=== PATIENT | female | born 1955 | race Caucasian/White ===

== ENCOUNTER 2017-05-13 14:21 | Emergency (ER) | payer MEDICARE, MEDICAID ==
--- NOTE | 2017-05-13 14:41 | ER Document Report ---
ED General - General Chief Complaint: Altered Mental Status Stated Complaint: ALTERED MENTAL STATUS, DIZZY Time Seen by Provider: 05/13/17 14:39 Mode of Arrival: Ambulatory Information source: Patient, Relative TRAVEL OUTSIDE OF THE [place] IN LAST 30 DAYS: No - HPI Onset: Yesterday Onset/Duration: Gradual Quality of pain: No pain Associated symptoms: Other - DIPLOPIA, MUSCLE SPASMS, NONSENSICAL TALK. Exacerbated by: Denies Relieved by: Denies Similar symptoms previously: Yes - WITH LOW MAGNESIUM Recently seen / treated by doctor: Yes - LAST WK, TAKING AMOX./CLAV. FOR BRONCHITIS - Related Data Allergies/Adverse Reactions: zolpidem [From Ambien] Adverse Reaction (Verified 04/07/16 17:08) Past Medical History - General Information source: Patient, Relative - Social History Smoking Status: Former Smoker Cigarette use (# per day): No Chew tobacco use (# tins/day): No Smoking Education Provided: No Frequency of alcohol use: None Drug Abuse: None Lives with: Family Family History: Reviewed & Not Pertinent Patient has suicidal ideation: No Patient has homicidal ideation: No - Past Medical History Cardiac Medical History: Reports: Hx Congestive Heart Failure, Hx Coronary Artery Disease, Hx Heart Attack, Hx Hypertension Pulmonary Medical History: Reports: Hx COPD, Hx Pneumonia, Hx Intubation, Hx Respiratory Failure Denies: Hx Tuberculosis EENT Medical History: Reports: None Neurological Medical History: Denies: Hx Seizures Endocrine Medical History: Reports: Hx Diabetes Mellitus Type 2, Hx Hypothyroidism Renal/ Medical History: Reports: None Malignancy Medical History: Reports: None GI Medical History: Reports: None Musculoskeltal Medical History: Reports Hx Fibromyalgia Psychiatric Medical History: Reports: Hx Bipolar Disorder, Hx Depression Past Surgical History: Reports: Hx Appendectomy, Hx Cardiac Catheterization, Hx Cardiac Surgery, Hx Section. Denies: Hx Pacemaker - Immunizations Hx Diphtheria, Pertussis, Tetanus Vaccination: Yes Hx Pneumococcal Vaccination: 04/16/09 Review of Systems - Review of Systems Constitutional: See HPI EENT: See HPI, Double vision Cardiovascular: No symptoms reported Respiratory: See HPI, Cough, Sputum Gastrointestinal: No symptoms reported Genitourinary: No symptoms reported Female Genitourinary: Post menopausal Musculoskeletal: No symptoms reported Skin: No symptoms reported Neurological/Psychological: No symptoms reported Physical Exam - Vital signs Vitals: Pulse Ox 91 L 05/13/17 14:30 Interpretation: Normal - General General appearance: Appears well, Alert In distress: None - HEENT Head: Normocephalic Eyes: Normal Conjunctiva: Normal Extraocular movements intact: Yes - CONJUGATE GAZE ON EXAM Pupils: PERRL Ears: Normal Nasal: Normal Mouth/Lips: Normal Mucous membranes: Normal Pharynx: Normal Neck: Normal - Respiratory Respiratory status: No respiratory distress Breath sounds: Normal. No: Rales, Rhonchi, Wheezing - Cardiovascular Rhythm: Regular Heart sounds: Normal auscultation Murmur: No - Abdominal Inspection: Normal Bowel sounds: Normal - Back Back: Normal - Extremities General upper extremity: Normal inspection General lower extremity: Normal inspection - Neurological Neuro grossly intact: Yes Cognition: Normal Orientation: AAOx4 [place] Coma Scale Eye Opening: Spontaneous [place] Coma Scale Verbal: Oriented [place] Coma Scale Motor: Obeys Commands [place] Coma Scale Total: 15 Speech: Normal Cranial nerves: Normal Motor strength normal: LUE, RUE Additional motor exam normals: Equal head orthopedic team physician, Involuntary movements - MUSCULAR TICS , 1-2 MIN, LASTING 1 SECOND OR LESS, AFFECTING MOSTLY UPPER EXTREMITIES, NOT LATERALIZED - Psychological Associated symptoms: Normal affect, Normal mood - Skin Skin Temperature: Warm Skin Moisture: Dry Skin Color: Normal Skin Turgor: Elastic Course - Vital Signs Vital signs: Temp Pulse Resp BP Pulse Ox 20 129/86 H 92 05/13/17 18:01 05/13/17 18:00 05/13/17 18:01 - Laboratory Result Diagrams: 05/13/17 15:26 05/13/17 15:26 Laboratory results interpreted by me: 05/13/17 05/13/17 15:26 15:26 Hgb 11.4 L Hct 34.5 L Lymphocytes % 11.3 L Chloride 96 L Carbon Dioxide 34 H Est GFR (Non-Af Amer) 50 L AST 76 H Salicylates < 1.0 L Acetaminophen < 10 L Discharge - Discharge Clinical Impression: Dizziness COPD (chronic obstructive pulmonary disease) Qualifiers: COPD type: emphysema Emphysema type: unspecified Qualified Code(s): J43.9 - Emphysema, unspecified Condition: Stable Disposition: HOME, SELF-CARE Instructions: Dizziness ([facility]) Additional Instructions: CONTINUE USUAL MEDS. YOU MAY TAKE FLEXERIL DIRECTED, IF NEEDED FOR CONTROL OF MUSCLE SPASMS. FOLLOW UP WITH YOUR PRIMARY CARE PROVIDER IRWIN SCHEDULED, TAKE COPIES OF LAB & RADIOLOGY REPORTS WITH YOU. RETURN TO E.R IF YOU GET WORSE IN ANY WAY, ANY TIME. Prescriptions: Cyclobenzaprine HCl [Flexeril 5 mg Tablet] 5 mg PO TID PRN #15 tablet PRN Reason:
[2017-05-13 15:51] LABS: ABSOLUTE EOSINOPHILS # (AUTO) 0.1 10^3/uL (0.0-0.6); ABSOLUTE LYMPHOCYTES (AUTO) 1.2 10^3/uL (0.5-4.7); ABSOLUTE MONOCYTES (AUTO) 1.1 10^3/uL (0.1-1.4); ABSOLUTE NEUT (AUTO) 7.8 10^3/uL (1.7-8.2); BASOPHILS % (AUTO) 0.3 % (0-2); EOSINOPHILS % (AUTO) 1.3 % (0-6); HEMATOCRIT 34.5 % (36.0-47.0); HEMOGLOBIN 11.4 g/dL (12.0-15.5); LYMPHOCYTES % (AUTO) 11.3 % (13-45); MEAN CORPUSCULAR HEMOGLOBIN 29.7 pg (27.0-33.4); MEAN CORPUSCULAR HGB CONC 32.9 g/dL (32.0-36.0); MEAN CORPUSCULAR VOLUME 90 fl (80-97); MONOCYTES % (AUTO) 11.1 % (3-13); PLATELET COUNT 312 10^3/uL (150-450); RED BLOOD COUNT 3.82 10^6/uL (3.72-5.28); RED CELL DISTRIBUTION WIDTH 13.6 % (11.5-14.0); TOTAL CELLS COUNTED % (AUTO) 100 %; WHITE BLOOD COUNT 10.3 10^3/uL (4.0-10.5)
[2017-05-13 16:01] LABS: ALANINE AMINOTRANSFERASE 38 U/L (9-52); ALKALINE PHOSPHATASE 99 U/L (38-126); ANION GAP 11 (5-19); ASPARTATE AMINO TRANSFERASE 76 U/L (14-36); BILIRUBIN,DIRECT 0.2 mg/dL (0.0-0.4); BILIRUBIN,TOTAL 0.2 mg/dL (0.2-1.3); BLOOD UREA NITROGEN 17 mg/dL (7-20); CALCIUM 9.1 mg/dL (8.4-10.2); CARBON DIOXIDE 34 mmol/L (22-30); CHLORIDE 96 mmol/L (98-107); GLUCOSE 90 mg/dL (75-110); MAGNESIUM 1.9 mg/dL (1.6-2.3); POTASSIUM 4.4 mmol/L (3.6-5.0); SODIUM 140.7 mmol/L (137-145)
[2017-05-13 16:02] LABS: ACETAMINOPHEN < 10 ug/mL (10-30); ALCOHOL < 10 mg/dL (NONE DETECTED); SALICYLATE < 1.0 mg/dL (2.0-20.0)
[2017-05-13] MEDS ORDERED: MAGNESIUM SULFATE PF/INJ 40 MEQ/10 ML SDV IV ONE (16:15)
[2017-05-13] MEDS ORDERED: MAGNESIUM SULFATE INJ 8 MEQ/2 ML IV ONE (16:23)
[2017-05-13] MEDS ORDERED: MAGNESIUM SULFATE/D5W 1 GM/100 ML RTUPB IV ONE (16:30)
[2017-05-13 16:57] LABS: FREE T3 3.6 pg/mL (2.77-5.27); FREE T4 (FREE THYROXINE) 1.33 ng/dL (0.78-2.19)
[2017-05-13 17:11] LABS: THYROID STIMULATING HORMONE 2.37 uIU/mL (0.47-4.68)
[2017-05-13] MEDS ORDERED: DIAZEPAM 2 MG TABLET PO ONE (18:06)
[2017-05-13] MEDS ORDERED: CYCLOBENZAPRINE HCL 10 MG TABLET PO ONE (18:09)
--- NOTE | 2017-05-13 18:54 | RADIOLOGY REPORT (SQ) ---
EXAM DESCRIPTION: CT HEAD WITHOUT COMPLETED DATE/TIME: 05/13/2017 6:35 pm REASON FOR STUDY: DIZZINESS, DIPLOPIA COMPARISON: CT head 07/05/2010. TECHNIQUE: Axial images acquired through the brain without intravenous contrast. Images reviewed wi th bone, brain and subdural windows. Images stored on PACS. All CT scanners at this facility use dose modulation, iterative reconstruction, and/or weight based d osing when appropriate to reduce radiation dose to as low as reasonably achievable (ALARA). [facility]: Dose Right [facility]: CareDose [facility]: Dose Right [facility]: Teradose 4D [facility]: [employer] RADIATION DOSE: CT Rad equipment meets quality standard of care and radiation dose reduction techniq ues were employed. CTDIvol: 64.6 mGy. DLP: 1034 mGy-cm. mGy. LIMITATIONS: None. FINDINGS: VENTRICLES: Normal size and contour. CEREBRUM: No mass effect. No hemorrhage. No midline shift. Normal montes/white matter differentiatio n. No evidence for acute territorial infarction. CEREBELLUM: No mass effect. No hemorrhage. No alteration of density. No evidence for acute infarct ion. EXTRAAXIAL SPACES: No fluid collections. ORBITS AND GLOBE: Symmetrical contour of the globes. CALVARIUM: No depressed skull fracture. PARANASAL SINUSES: No air-fluid level. SOFT TISSUES: No hematoma. IMPRESSION: No acute intracranial hemorrhage or acute territorial infarct. EVIDENCE OF ACUTE STROKE: NO. COMMENT: Quality ID # [id number]: Final reports with documentation of one or more dose reduction techniques (e.g., Automated exposure control, adjustment of the mA and/or kV according to patient size, use of iterative reconstruction technique) TECHNICAL DOCUMENTATION: JOB ID: [id number]- All Rights Reserved
[2017-05-13 19:23] VITALS: BP 113/62
--- NOTE | 2017-05-14 01:30 | EKG REPORT ---
SEVERITY:- BORDERLINE ECG - SINUS RHYTHM BORDERLINE RIGHT AXIS DEVIATION BORDERLINE PROLONGED QT INTERVAL : Confirmed by: Eva Rowell MD 14-May-2017 01:29:47
== END 2017-05-13 19:20 | disposition home or self-care (01) ==
LOC: ER 14:21
DX: J43.9 Emphysema, unspecified (principal); R42 Dizziness and giddiness; R41.82 Altered mental status, unspecified; H53.2 Diplopia; Z87.891 Personal history of nicotine dependence
CPT/HCPCS: 93005; 99285; 96365; 36415; 84439; 80307 ×3; 83735; 84443; 85025; 80053; 84481; 70450; 93010; A9270; J3475

== ENCOUNTER 2017-06-03 13:28 | Inpatient (IN) | payer MEDICARE, MEDICAID ==
[2017-06-03 14:09] LABS: VENOUS BLOOD BASE EXCESS 4.3 mmol/L; VENOUS BLOOD HCO3 32.2 mmol/L (20-32); VENOUS BLOOD PCO2 64.4 mmHg (35-63); VENOUS BLOOD PH 7.32 (7.30-7.42)
[2017-06-03] MEDS ORDERED: IPRATROPIUM/ALBUTEROL 0.5-2.5 MG/3 ML AMPUL NEB ONE (14:12)
[2017-06-03 14:14] LABS: INTERNATIONAL RATION (INR) 0.97; PROTHROMBIN TIME 13.6 SEC (11.4-15.4)
[2017-06-03] MEDS ORDERED: CEFTRIAXONE 2 GM/D5W RTU 2 GM/50 ML RTUPB IV ONE (14:14)
[2017-06-03] MEDS ORDERED: ACETAMINOPHEN 650 MG SUPP.RECT PR ONE (14:14)
[2017-06-03] MEDS ORDERED: METHYLPREDNISOLONE INJ 125 MG/2 ML SDV IV ONE (14:14)
[2017-06-03 14:18] LABS: HEMATOCRIT 35.6 % (36.0-47.0); HEMOGLOBIN 11.6 g/dL (12.0-15.5); MEAN CORPUSCULAR HEMOGLOBIN 29.4 pg (27.0-33.4); MEAN CORPUSCULAR HGB CONC 32.5 g/dL (32.0-36.0); MEAN CORPUSCULAR VOLUME 90 fl (80-97); PLATELET COUNT 250 10^3/uL (150-450); RED BLOOD COUNT 3.94 10^6/uL (3.72-5.28); RED CELL DISTRIBUTION WIDTH 13.9 % (11.5-14.0); WHITE BLOOD COUNT 22.5 10^3/uL (4.0-10.5)
--- NOTE | 2017-06-03 14:18 | ER Document Report ---
ED General - General Chief Complaint: Respiratory Distress Stated Complaint: BREATHING DIFFICULTY Time Seen by Provider: 06/03/17 13:54 Mode of Arrival: Medic Information source: Relative Notes: This is a 61-year-old female with a history of oxygen dependent COPD with hypercarbic respiratory failure in the past, coronary artery disease, CHF who presents to the emergency room with shortness of breath, decreased responsiveness, fever. TRAVEL OUTSIDE OF THE [place] IN LAST 30 DAYS: No - HPI Onset: Just prior to arrival Onset/Duration: Gradual Quality of pain: No pain Severity: None Pain Level: Denies Associated symptoms: Fever, Shortness of breath Exacerbated by: Denies Relieved by: Denies Similar symptoms previously: Yes Recently seen / treated by doctor: Yes - Related Data Allergies/Adverse Reactions: zolpidem [From Ambien] Adverse Reaction (Verified 04/07/16 17:08) Past Medical History - General Information source: Relative - Social History Smoking Status: Former Smoker Cigarette use (# per day): No Chew tobacco use (# tins/day): No Smoking Education Provided: No Frequency of alcohol use: None Drug Abuse: None Lives with: Spouse/Significant other Family History: Reviewed & Not Pertinent Patient has suicidal ideation: No Patient has homicidal ideation: No - Past Medical History Cardiac Medical History: Reports: Hx Congestive Heart Failure, Hx Coronary Artery Disease, Hx Heart Attack, Hx Hypertension Pulmonary Medical History: Reports: Hx COPD, Hx Pneumonia, Hx Intubation, Hx Respiratory Failure Denies: Hx Tuberculosis Neurological Medical History: Denies: Hx Seizures Endocrine Medical History: Reports: Hx Diabetes Mellitus Type 2, Hx Hypothyroidism Renal/ Medical History: Denies: Hx Peritoneal Dialysis Musculoskeltal Medical History: Reports Hx Fibromyalgia Psychiatric Medical History: Reports: Hx Bipolar Disorder, Hx Depression Past Surgical History: Reports: Hx Appendectomy, Hx Cardiac Catheterization, Hx Cardiac Surgery, Hx Section. Denies: Hx Pacemaker - Immunizations Hx Diphtheria, Pertussis, Tetanus Vaccination: Yes Hx Pneumococcal Vaccination: 04/16/09 Review of Systems - Review of Systems Notes: Review of systems: Constitutional: Denies fever, chills. EENT: Denies ear pain, sinus tenderness, throat pain, throat swelling. Cardiovascular: Denies chest pain, palpitations, dyspnea or edema. Respiratory: Shortness of breath, productive cough, fever Abdomen: Denies abdominal pain, nausea, vomiting, diarrhea. Denies BRBPR or melena. Genitourinary: Denies dysuria, pyuria, hematuria, flank pain. Musculoskeletal: denies joint pain or swelling, denies back pain. Neurologic: Denies headache, photophobia, neck stiffness, weakness. Denies loss of bowel or bladder function. Denies saddle anesthesia. Skin: Denies rash, lesions. Physical Exam - Vital signs Vitals: Resp Pulse Ox 29 H 98 06/03/17 13:39 06/03/17 13:39 Notes: Physical exam: GENERAL: 61-year-old female, lethargic but arousable. She has frequent motor jerking of the upper and lower extremities concerning for hypercarbic respiratory failure, she has a temperature of 103.5 HEAD: Atraumatic, normocephalic. EYES: Pupils equal round and reactive to light, extraocular movements intact, sclera anicteric, conjunctiva are normal. ENT: TMs normal, nares patent, oropharynx clear without exudates. Moist mucous membranes. NECK: Normal range of motion, supple without obvious mass or JVD. LUNGS: Scant wheezing bilaterally, positive rhonchi HEART: Regular rate and rhythm without murmurs, rubs or gallops. ABDOMEN: Soft, normoactive bowel sounds. No tenderness to palpation. No guarding, no rebound. No masses appreciated. EXTREMITIES: Normal range of motion, no pitting or edema. No clubbing or cyanosis. NEUROLOGICAL: Easily arousable and denying any discomfort, no facial asymmetry, no lateralizing motor findings, moving all extremities. PSYCH: Allergic but arousable SKIN: Warm, Dry, normal turgor, no rashes or lesions noted. Course - Re-evaluation Re-evalutation: 06/03/17 14:31 Patient placed on BiPAP at 1405. IV ceftriaxone after blood cultures IV azithromycin IV Solu-Medrol Dual nebs Labs pending Line for ABG after BiPAP trial (patient is arousable at this time). 06/03/17 15:07 On reassessment over an hour after BiPAP: Patient is more lethargic, not easily arousable and has increased tonic jerks consistent with hypercarbic respiratory failure. At this point, the decision was made to intubate the patient. She was taken to room T2 in the ER and placed on a ventilator. She was given etomidate and rocuronium and intubated with the assistance of the glottiscope. Due to poor intravenous access, right triple-lumen catheter was placed under ultrasound guidance into the right IJ vein. Chest x-ray shows good placement. I did get verbal consent from the patient's daughter (Sally [phone]). The plan will be admitted to the ICU for respiratory failure in the setting of acute respiratory illness. 06/03/17 18:45 06/03/17 18:50 NOTE: FAMILY CONTACT: DAUGHTER SALLY: [phone] - Vital Signs Vital signs: Temp Pulse Resp BP Pulse Ox 98.3 F 24 H 116/56 L 95 06/03/17 18:08 06/03/17 18:08 06/03/17 18:08 06/03/17 18:08 - Laboratory Result Diagrams: 06/03/17 13:52 06/03/17 13:52 Laboratory results interpreted by me: 06/03/1718 06/03/17 13:52 13:52 13:52 WBC 22.5 H Hgb 11.6 L Hct 35.6 L Seg Neuts % (Manual) 83 H Lymphocytes % (Manual) 6 L Abs Neuts (Manual) 19.4 H Abs Monocytes (Manual) 1.8 H VBG pCO2 64.4 H VBG HCO3 32.2 H BUN 24 H Creatinine 1.41 H Est GFR ( Amer) 46 L Est GFR (Non-Af Amer) 38 L POC Glucose Direct Bilirubin 0.5 H 06/03/17 14:18 WBC Hgb Hct Seg Neuts % (Manual) Lymphocytes % (Manual) Abs Neuts (Manual) Abs Monocytes (Manual) VBG pCO2 VBG HCO3 BUN Creatinine Est GFR ( Amer) Est GFR (Non-Af Amer) POC Glucose 113 H Direct Bilirubin - Diagnostic Test Radiology reviewed: Image reviewed, Reports reviewed - No obvious infiltrates, ET tube in good position. OG tube in good position. Right IJ line in good position. - EKG Interpretation by Me Rate: Tachycardia - EKG shows sinus tachycardia with a ventricular rate of 122, no acute ST-T wave changes Procedures - Central Line Right Internal jugular Time completed: 18:49 Consent obtained: Yes - Verbal consent from the daughter Central line pre-insertion: Chloraprep applied Central line size (Fr.): 7 Central line lumen type: Triple Anesthetic type: 1% Lidocaine mL's of anesthesia: 2 Ultrasound guided: Yes CM at insertion site: 17 Line secured with sutures: Yes Central line post-insertion: Blood return from lumens, Biopatch applied, Sutured , Sterile dressing applied, Position confirmed w/ CXR Number of attempts: 1 Complications: No Notes: 06/03/17 18:50 MSBT (maximum sterile barrier technique) followed including cap, mask, sterile gloves, large sterile sheet, hand hygiene, sterile ultrasound probe sleeve, sterile saline for probe visualization, liberal ChloraPrep for cutaneous antisepsis both during procedure set up and immediately before Biopatch application, line stabilization with suture and sterile Tegaderm placement. - Intubation Orotracheal Time of Intubation: 16:00 Airway evaluation: Copious secretions Mallampati Classification: Class 2 Medications: Etomidate, Other - Rocuronium Intubation method: Orotracheal Blade size: 3 Equipment used: Glidescope ETT size: 7.5 ETT secured at: Lips ETT secured at (cm): 21 Breath Sounds after Intubation: Equal End tidal CO2 confirmed: Yes Ventilator settings: SIMV Post Intubation Xray: Yes - Good placement Intubation Complications: No complications Critical Care Note - Critical Care Note Total time excluding time spent on procedures (mins): 120 Discharge - Discharge Clinical Impression: Respiratory failure Condition: Stable Disposition: ADMITTED INPATIENT Admitting Provider: Geneist Phil Dowell Unit Admitted: [facility]
[2017-06-03] MEDS ORDERED: CEFTRIAXONE INJ 1000 MG VIAL IV ONE (14:21)
[2017-06-03 14:27] LABS: ALANINE AMINOTRANSFERASE 26 U/L (9-52); ALBUMIN 4.2 g/dL (3.5-5.0); ALKALINE PHOSPHATASE 83 U/L (38-126); ANION GAP 12 (5-19); ASPARTATE AMINO TRANSFERASE 22 U/L (14-36); BILIRUBIN,DIRECT 0.5 mg/dL (0.0-0.4); BILIRUBIN,TOTAL 0.6 mg/dL (0.2-1.3); BLOOD UREA NITROGEN 24 mg/dL (7-20); CALCIUM 9.7 mg/dL (8.4-10.2); CARBON DIOXIDE 27 mmol/L (22-30); CHLORIDE 99 mmol/L (98-107); GLUCOSE 110 mg/dL (75-110); POTASSIUM 4.7 mmol/L (3.6-5.0); SODIUM 137.7 mmol/L (137-145); TOTAL PROTEIN 7.6 g/dL (6.3-8.2)
[2017-06-03 14:37] LABS: ABSOLUTE LYMPHOCYTES# (MANUAL) 1.4 10^3/uL (0.5-4.7); ABSOLUTE MONOCYTES # (MANUAL) 1.8 10^3/uL (0.1-1.4); ABSOLUTE NEUTROPHILS# (MANUAL) 19.4 10^3/uL (1.7-8.2); BAND NEUTROPHILS % (MANUAL) 3 % (3-5); BASOPHILS % (MANUAL) 0 % (0-2); EOSINOPHILS % (MANUAL) 0 % (0-6); LYMPHOCYTES % (MANUAL) 6 % (13-45); MONOCYTES % (MANUAL) 8 % (3-13); SEGMENTED NEUTROPHILS % (MAN) 83 % (42-78); TOTAL CELLS COUNTED 100
[2017-06-03 14:40] LABS: ANISOCYTOSIS SLIGHT; PLATELET COMMENT ADEQUATE; POLYCHROMASIA SLIGHT; STOMATOCYTES 1+; TOXIC GRANULATION 1+
[2017-06-03] MEDS ORDERED: AZITHROMYCIN INJ 500 MG VIAL IV ONE (15:06)
--- NOTE | 2017-06-03 15:06 | RADIOLOGY REPORT (SQ) ---
EXAM DESCRIPTION: CHEST SINGLE VIEW COMPLETED DATE/TIME: 06/03/2017 2:52 pm REASON FOR STUDY: SOB COMPARISON: 04/07/2016 EXAM PARAMETERS: NUMBER OF VIEWS: One view. TECHNIQUE: Single frontal radiographic view of the chest acquired. RADIATION DOSE: NA LIMITATIONS: None. FINDINGS: LUNGS AND PLEURA: No acute opacities, masses or pneumothorax. No pleural effusion. MEDIASTINUM AND HILAR STRUCTURES: Stable. HEART AND VASCULAR STRUCTURES: Heart normal in size. Normal vasculature. BONES: No acute findings. HARDWARE: None in the chest. OTHER: No other significant finding. IMPRESSION: NO ACUTE RADIOGRAPHIC FINDING IN THE CHEST. TECHNICAL DOCUMENTATION: JOB ID: [id number] 2010 [employer]- All Rights Reserved
[2017-06-03 15:20] LABS: APPEARANCE,URINE CLEAR; BILIRUBIN,URINE NEGATIVE (NEGATIVE); COLOR,URINE YELLOW; GLUCOSE, URINE NEGATIVE (NEGATIVE); KETONES,URINE NEGATIVE (NEGATIVE); LEUKOCYTE ESTERASE,URINE NEGATIVE (NEGATIVE); NITRITE,URINE NEGATIVE (NEGATIVE); PROTEIN,URINE NEGATIVE (NEGATIVE); URINE SPECIFIC GRAVITY 1.019; UROBILINOGEN,URINE NEGATIVE mg/dL (<2.0)
[2017-06-03] MEDS ORDERED: ETOMIDATE INJ/PF 20 MG/10 ML SDV IV ONE ×2 (15:28→18:29)
[2017-06-03] MEDS ORDERED: PROPOFOL 100 ML IV ONE (15:29)
[2017-06-03] MEDS: PROPOFOL 100 ML IV PRN ×2 (15:40→22:36)
--- NOTE | 2017-06-03 16:56 | RADIOLOGY REPORT (SQ) ---
EXAM DESCRIPTION: CHEST SINGLE VIEW COMPLETED DATE/TIME: 06/03/2017 4:44 pm REASON FOR STUDY: intubated, OG tube, right IJ COMPARISON: 06/03/2017 earlier. FINDINGS: Single-view chest AP portable partially upright image timed approximately 1622 hours. Endotracheal tube in place above the benito, grossly appropriate. Nasogastric tube down, tip appropriately within the stomach. Right IJ central line, tip to the superior vena cava. No pneumothorax. IMPRESSION: Appropriate lines and tubes. No complication evident. TECHNICAL DOCUMENTATION: JOB ID: [id number]
[2017-06-03] MEDS: NORMAL SALINE 1000 ML 1,000 ML IV PRN ×3 (17:11→20:09)
[2017-06-03] MEDS: MAGNESIUM SULFATE/D5W 1 GM/100 ML RTUPB IV SCH ×2 (17:49→20:08)
[2017-06-03] MEDS ORDERED: ROCURONIUM BROMIDE INJ 50 MG/5 ML VIAL IV ONE (18:29)
--- NOTE | 2017-06-03 18:35 | EKG REPORT ---
SEVERITY:- OTHERWISE NORMAL ECG - SINUS TACHYCARDIA BORDERLINE RIGHT AXIS DEVIATION : Confirmed by: Daniela Vasquez 03-Jun-2017 18:34:15
--- NOTE | 2017-06-03 18:57 | PDOC H&P ---
History of Present Illness Admission Date/PCP: 06/03/17 17:19 OCTAVIO MOLINA Patient complains of: Sob, cough History of Present Illness: PIEDAD GILES is a 61 year old female with history of COPD, apparently with history of intubation, who presented to the ED with shortness of breath. Apparently she has had about 3 weeks of cough that is productive. When EMS arrived, patient was found to have a temperature 103. She was treated with Tylenol. In the ED she was found to have temperature 101.4. She was in respiratory distress and was treated with nebulizers and O2 and was tried on BiPAP, but apparently with no improvement and patient had decreased mental status. She was intubated and referred to the hospitalist service for admission. Past Medical History Cardiac Medical History: Reports: Congestive Heart Failure, Coronary Artery Disease, Myocardial Infarction, Hypertension Pulmonary Medical History: Reports: Chronic Obstructive Pulmonary Disease (COPD) , Intubation, Pneumonia, Respiratory Failure Denies: Tuberculosis Neurological Medical History: Denies: Seizures Endocrine Medical History: Reports: Diabetes Mellitus Type 2, Hypothyroidism Musculoskeltal Medical History: Reports: Fibromyalgia Psychiatric Medical History: Reports: Bipolar Disorder, Depression Past Surgical History Past Surgical History: Reports: Appendectomy, Cardiac Catheterization, Section Denies: Pacemaker Social History Smoking Status: Current Some Day Smoker Frequency of Alcohol Use: None Hx Recreational Drug Use: No Drugs: None Hx Prescription Drug Abuse: No Family History Family History: Reviewed & Not Pertinent Parental Family History Reviewed: No Children Family History Reviewed: Unknown Sibling(s) Family History Reviewed.: Unknown Medication/Allergy Home Medications: Levothyroxine Sodium [Synthroid 0.05 mg Tablet] 1 tab PO DAILY 02/06/11 Ropinirole HCl [Requip 2 mg Tablet] 1 tab PO QHS 04/27/12 Aripiprazole 1 tab PO DAILY 11/23/15 Buprenorphine HCl/Naloxone HCl [Suboxone 8 mg-2 mg Sl Film] 3 film SL DAILY 12/30 Citalopram Hydrobromide [Celexa 40 mg Tablet] 1 tab PO DAILY 11/23/15 Fluticasone/Salmeterol [Advair 500-50 Diskus 28 Dose] 1 inh IH DAILY 11/23/15 Gabapentin [Neurontin 300 mg Capsule] 2 tab PO Q8 11/23/15 Hydroxyzine HCl 1 tab PO Q8 PRN 11/23/15 Tolterodine Tartrate [Detrol] 1 tab PO BID 11/23/15 Albuterol Sulfate [Ventolin 0.083% Neb 2.5 mg/3 mL Ampul] 2 puff NEB [id number] PRN 04/07/16 Doxepin HCl 1 - 2 tab PO QHS 04/07/16 Magnesium Oxide [Magnesium] 1 tab PO DAILY 04/07/16 Promethazine HCl 1 tab PO Q6HP PRN 04/07/16 Zolpidem Tartrate 1 tab PO QPM 04/07/16 Ciprofloxacin HCl [Cipro 500 mg Tablet] 500 mg PO BID #20 tablet 04/08/16 Metronidazole [Flagyl 500 mg Tablet] 500 mg PO Q6 #40 tablet 04/08/16 Cyclobenzaprine HCl [Flexeril 5 mg Tablet] 5 mg PO TID PRN #15 tablet 05/13/17 Allergies/Adverse Reactions: zolpidem [From Ambien] Adverse Reaction (Verified 04/07/16 17:08) Review of Systems ROS unobtainable: Due to endotracheal tube Physical Exam Vital Signs: Temp Pulse Resp BP Pulse Ox 101.4 F H 11 L 124/58 L 94 06/03/17 15:00 06/03/17 16:41 06/03/17 16:41 06/03/17 16:41 GENERAL: Well-developed female, currently intubated, in no acute distress HEENT: Normocephalic/atraumatic NECK no JVD CARDIOVASCULAR: RRR, normal S1-S2 LUNGS: Few expiratory wheezing bilaterally ABDOMEN: Soft, NT, NL bowel sounds EXTREMITIES: No edema, clubbing, cyanosis NEUROLOGICAL: Intubated, sedated, unable to assess as a result Results Laboratory Results: Laboratory results interpreted by me: 06/03/17 06/03/17 06/03/17 13:52 13:52 13:52 WBC 22.5 H Hgb 11.6 L Hct 35.6 L Seg Neuts % (Manual) 83 H Lymphocytes % (Manual) 6 L Abs Neuts (Manual) 19.4 H Abs Monocytes (Manual) 1.8 H VBG pCO2 64.4 H VBG HCO3 32.2 H BUN 24 H Creatinine 1.41 H Est GFR ( Amer) 46 L Est GFR (Non-Af Amer) 38 L POC Glucose Direct Bilirubin 0.5 H 06/03/17 14:18 WBC Hgb Hct Seg Neuts % (Manual) Lymphocytes % (Manual) Abs Neuts (Manual) Abs Monocytes (Manual) VBG pCO2 VBG HCO3 BUN Creatinine Est GFR ( Amer) Est GFR (Non-Af Amer) POC Glucose 113 H Direct Bilirubin Impressions: Chest X-Ray 06/03/17 16:20 IMPRESSION: Appropriate lines and tubes. No complication evident. Assessment & Plan - Plan Summary Plan Summary: We will admit patient to ICU. He is currently on ventilator to IMV 12, tidal volume 45, pressure support of 5, 40% FiO2. Blood cultures have been done in the ED and patient treated with Rocephin and Zithromax. We will continue same antibiotics for now. We will continue to monitor and adjust treatment as needed. We will also treat with Solu-Medrol IV. Patient has received a normal saline IV bolus in the ED. Will continue at 75 mL /h and reassess and reassess periodically, in light of history of CAD. We will wean off ventilation as soon as possible. Superintendent Laundry consult Dr. Sandoval.
[2017-06-03 20:18] LABS: CREATINE KINASE MB 1.79 ng/mL (<4.55); TROPONIN I < 0.012 ng/mL
[2017-06-03] MEDS ORDERED: FAMOTIDINE 20 MG TABLET PO SCH (22:00)
[2017-06-03] MEDS: METHYLPREDNISOLONE INJ 40 MG/1 ML SDV IV SCH (22:35)
[2017-06-03 22:54] LABS: ARTERIAL BLOOD BASE EXCESS -1.8 mmol/L; ARTERIAL BLOOD H2CO3 1.64 mmol/L (1.05-1.35); ARTERIAL BLOOD HCO3 25.4 mmol/L (20-26); ARTERIAL BLOOD O2 SATURATION 92.4 % (94-98); ARTERIAL BLOOD PCO2 54.6 mmHg (35-45); ARTERIAL BLOOD PH 7.29 (7.35-7.45); ARTERIAL BLOOD PO2 71.9 mmHg (80-100); ARTERIAL BLOOD TOTAL CO2 27.1 mmol/L (21-25)
[2017-06-03 22:55] LABS: ARTERIAL BLOOD FIO2 35%
[2017-06-04] MEDS: PROPOFOL 100 ML IV PRN ×5 (03:32→21:34)
[2017-06-04] MEDS: METHYLPREDNISOLONE INJ 40 MG/1 ML SDV IV SCH ×3 (05:15→21:33)
[2017-06-04 06:29] LABS: INTERNATIONAL RATION (INR) 0.99; PROTHROMBIN TIME 13.8 SEC (11.4-15.4)
[2017-06-04 06:47] LABS: ALANINE AMINOTRANSFERASE 23 U/L (9-52); ALBUMIN 3.5 g/dL (3.5-5.0); ALKALINE PHOSPHATASE 74 U/L (38-126); ANION GAP 10 (5-19); ASPARTATE AMINO TRANSFERASE 22 U/L (14-36); BILIRUBIN,DIRECT 0.5 mg/dL (0.0-0.4); BILIRUBIN,TOTAL 0.5 mg/dL (0.2-1.3); BLOOD UREA NITROGEN 23 mg/dL (7-20); CALCIUM 9.8 mg/dL (8.4-10.2); CARBON DIOXIDE 24 mmol/L (22-30); CHLORIDE 106 mmol/L (98-107); GLUCOSE 131 mg/dL (75-110); POTASSIUM 4.7 mmol/L (3.6-5.0); SODIUM 140.3 mmol/L (137-145); TOTAL PROTEIN 6.5 g/dL (6.3-8.2)
[2017-06-04 06:55] LABS: ARTERIAL BLOOD BASE EXCESS 1.6 mmol/L; ARTERIAL BLOOD H2CO3 1.47 mmol/L (1.05-1.35); ARTERIAL BLOOD HCO3 27.6 mmol/L (20-26); ARTERIAL BLOOD O2 SATURATION 90.9 % (94-98); ARTERIAL BLOOD PCO2 48.9 mmHg (35-45); ARTERIAL BLOOD PH 7.37 (7.35-7.45); ARTERIAL BLOOD TOTAL CO2 29.1 mmol/L (21-25)
[2017-06-04 06:56] LABS: ARTERIAL BLOOD FIO2 40%
--- NOTE | 2017-06-04 08:03 | RADIOLOGY REPORT (SQ) ---
EXAM DESCRIPTION: CHEST SINGLE VIEW COMPLETED DATE/TIME: 06/04/2017 6:50 am REASON FOR STUDY: Acute respiratory failure, intubated COMPARISON: Chest film 06/03/2017, 11/23/2015 EXAM PARAMETERS: NUMBER OF VIEWS: One view. TECHNIQUE: Single frontal radiographic view of the chest acquired. RADIATION DOSE: NA LIMITATIONS: None. FINDINGS: Endotracheal tube tip is less than 1 cm above the benito, pointing towards the right cristina tem bronchus. This report was called to the patient's nurse, Doreen Bedolla RN, at 0750 hours 06/04/2017 Right jugular central line tip superior vena cava. Nasogastric tube tip and side port in the stomach . LUNGS AND PLEURA: Minimal left basilar airspace disease, atelectasis versus pneumonia. Lungs are oth erwise grossly clear. No pleural effusion. No pneumothorax. MEDIASTINUM AND HILAR STRUCTURES: No masses. Contour normal. HEART AND VASCULAR STRUCTURES: Heart normal in size. Normal vasculature. BONES: No acute findings. HARDWARE: None in the chest. OTHER: No other significant finding. IMPRESSION: Endotracheal tube tip less than 1 cm above the benito. Left basilar airspace disease atelectasis versus pneumonia Report called to the patient's nurse in the emergency room as above TECHNICAL DOCUMENTATION: JOB ID: [id number] [employer]- All Rights Reserved
--- NOTE | 2017-06-04 09:09 | RADIOLOGY REPORT (SQ) ---
Exam Description CHEST SINGLE VIEW Completed Date/time 06/04/2017 8:57 AM Reason For Study ET tube adjustement Comparison 06/01/2017. Exam Parameters Single frontal radiograph of the chest. Number of views: One view LIMITATIONS: None Findings TEMPORARY SUPPORT DEVICES:ETT in expected location NG tube courses below the zaki-diaphragm in to the stomach. Central venous access catheter tip is in expected location. LUNGS AND PLEURA: No opacities. No effusions. No masses. No pneumothorax. MEDIASTINUM AND HILAR STRUCTURES: No masses Contour normal. HEART AND VASCULAR STRUCTURES: (Heart normal in size). (Normal vascularity.) Aorta normal for age. BONES: No acute findings. Impression NO ACUTE RADIOGRAPHIC FINDING IN THE CHEST. SUPPORT DEVICE(S) IN EXPECTED LOCATIONS. Technical Documentation 2010 [employer]- All Rights Reserved
[2017-06-04] MEDS: NORMAL SALINE 1000 ML 1,000 ML IV PRN ×2 (09:24→21:35)
[2017-06-04] MEDS ORDERED: CEFTRIAXONE 1 GM/D5W RTU 1 GM/50 ML RTUPB IV SCH (10:00)
[2017-06-04] MEDS: AZITHROMYCIN 500 MG in DEXTROSE 5%-WATER 250 ML IV SCH (10:03)
[2017-06-04] MEDS: ENOXAPARIN SODIUM INJ 30 MG/0.3 ML DISP.SYRIN SUBCUT SCH (11:16)
[2017-06-04] MEDS ORDERED: FAMOTIDINE INJ/PF 20 MG/2 ML SDV IV ONE (12:00)
[2017-06-04] MEDS: CEFTRIAXONE SODIUM 1,000 MG in NORMAL SALINE 100 ML IV SCH (12:35)
--- NOTE | 2017-06-04 14:22 | PDOC PROGRESS REPORT ---
Subjective Progress Note for:: 06/04/17 Reason For Visit: ACUTE RESP FAILURE, COPD EXERC, SIRS Physical Exam Vital Signs: Temp Pulse Resp BP Pulse Ox 98.2 F 11 L 119/67 97 06/04/17 13:40 06/04/17 13:40 06/04/17 13:40 06/04/17 13:40 Intake & Output 06/03/17 06/04/17 06/05/17 06:59 06:59 06:59 Intake Total 100 250 Output Total 1650 150 Balance -1550 100 GENERAL: Well-developed female, currently intubated, in no acute distress CARDIOVASCULAR: RRR, normal S1-S2 LUNGS: Few expiratory wheezing bilaterally ABDOMEN: Soft, NT, NL bowel sounds EXTREMITIES: No edema, clubbing, cyanosis NEUROLOGICAL: Intubated, sedated Results Laboratory Results: 06/04/17 05:55 06/03/17 06/04/17 06/04/17 22:38 05:55 05:55 Carbonic Acid 1.64 H HCO3/H2CO3 Ratio 15:1 ABG pH 7.29 L ABG pCO2 54.6 H ABG pO2 71.9 L ABG HCO3 25.4 ABG O2 Saturation 92.4 L ABG Base Excess -1.8 FiO2 35% Sodium 140.3 Potassium 4.7 Chloride 106 Carbon Dioxide 24 Anion Gap 10 BUN 23 H Creatinine 1.02 Est GFR ( Amer) > 60 Est GFR (Non-Af Amer) 55 L Glucose 131 H Calcium 9.8 Total Bilirubin 0.5 AST 22 ALT 23 Alkaline Phosphatase 74 Total Protein 6.5 Albumin 3.5 TSH 0.84 06/04/17 06:22 Carbonic Acid 1.47 H HCO3/H2CO3 Ratio 18:1 ABG pH 7.37 ABG pCO2 48.9 H ABG pO2 62.0 L ABG HCO3 27.6 H ABG O2 Saturation 90.9 L ABG Base Excess 1.6 FiO2 40% Sodium Potassium Chloride Carbon Dioxide Anion Gap BUN Creatinine Est GFR ( Amer) Est GFR (Non-Af Amer) Glucose Calcium Total Bilirubin AST ALT Alkaline Phosphatase Total Protein Albumin TSH 06/03/17 06/03/17 19:20 19:20 Creatine Kinase 100 CK-MB (CK-2) 1.79 Troponin I < 0.012 Assessment & Plan - Diagnosis (1) Acute respiratory failure Qualifiers: Respiratory failure complication: hypoxia and hypercapnia Qualified Code(s) : J96.01 - Acute respiratory failure with hypoxia; J96.02 - Acute respiratory failure with hypercapnia; J96.02 - Acute respiratory failure with hypercapnia; J96.02 - Acute respiratory failure with hypercapnia Is this a current diagnosis for this admission?: Yes (2) COPD with acute exacerbation Is this a current diagnosis for this admission?: Yes (3) SIRS (systemic inflammatory response syndrome) Is this a current diagnosis for this admission?: Yes (4) Coronary artery disease Is this a current diagnosis for this admission?: Yes (5) Leukocytosis Is this a current diagnosis for this admission?: Yes (6) Acute kidney injury Is this a current diagnosis for this admission?: Yes - Plan Summary Plan Summary: Continue ventilation support and wean off as needed. Dr. Bernal of pulmonology was consulted. COPD exacerbation likely underlying cause of acute on chronic respiratory. Will continue Solu-Medrol at 80 mg every 8 hours for now. Continue nebulizers as well. Leukocytosis may be secondary to history of steroid use, but noted that patient had fever as well. Blood cultures negative to date, urinalysis negative. We will continue empiric antibiotics with Levaquin and Zithromax and continue to follow culture results. Follow daily chest x-ray while patient intubated.
--- NOTE | 2017-06-04 14:34 | PDOC CONSULTATION ---
Consultation Consult Date: 06/04/17 Attending physician:: MATTHEW CALVILLO Consult reason:: Acute respiratory failure History of Present Illness Admission Date/PCP: 06/03/17 17:19 OCTAVIO MOLINA History of Present Illness: PIEDAD GILES is a 61 year old female with history of COPD, apparently with history of intubation, who presented to the ED with shortness of breath. Apparently she has had about 3 weeks of cough that is productive. When EMS arrived, patient was found to have a temperature 103. She was treated with Tylenol. In the ED she was found to have temperature 101.4. She was in respiratory distress and was treated with nebulizers and O2 and was tried on BiPAP, but apparently with no improvement and patient had decreased mental status. She was intubated and referred to the hospitalist service for admission. Past Medical History Cardiac Medical History: Reports: Congestive Heart Failure, Coronary Artery Disease, Myocardial Infarction, Hypertension Pulmonary Medical History: Reports: Chronic Obstructive Pulmonary Disease (COPD) , Intubation, Pneumonia, Respiratory Failure Denies: Tuberculosis Neurological Medical History: Denies: Seizures Endocrine Medical History: Reports: Diabetes Mellitus Type 2, Hypothyroidism Musculoskeltal Medical History: Reports: Fibromyalgia Psychiatric Medical History: Reports: Bipolar Disorder, Depression Past Surgical History Past Surgical History: Reports: Appendectomy, Cardiac Catheterization, Section Denies: Pacemaker Social History Lives with: Spouse/Significant other Smoking Status: Former Smoker Frequency of Alcohol Use: None Hx Recreational Drug Use: No Drugs: None Hx Prescription Drug Abuse: No Family History Parental Family History Reviewed: No Children Family History Reviewed: No Sibling(s) Family History Reviewed.: No Medication/Allergy Home Medications: Aripiprazole [Abilify 5 mg Tablet] 5 mg PO DAILY 06/04/17 Baclofen [Baclofen 10 mg Tablet] 10 mg PO BID 06/04/17 Buprenorphine HCl/Naloxone HCl [Suboxone 8 mg-2 mg Sl Film] 2 film SL DAILY Citalopram Hydrobromide [Celexa 40 mg Tablet] 40 mg PO DAILY 06/04/17 Clopidogrel Bisulfate [Plavix 75 mg Tablet] 75 mg PO DAILY 06/04/17 Doxepin HCl 100 mg PO QHS 06/04/17 Esomeprazole Mag Trihydrate [Nexium] 40 mg PO DAILY 06/04/17 Fluticasone Propionate [Flonase Nasal Gary 50 Mcg/Gary 16 gm] 1 spray NASL DAILY 06/04/17 Furosemide [Lasix 40 mg Tablet] 40 mg PO DAILY 06/04/17 Gabapentin [Neurontin 300 mg Capsule] 600 mg PO Q8 06/04/17 Hydroxyzine HCl [Atarax 25 mg Tablet] 25 mg PO Q8 06/04/17 Ipratropium/Albuterol Sulfate [Combivent Respimat 4 gm Mdi] 1 puff IH QID Promethazine HCl [Phenergan 25 mg Tablet] 25 mg PO Q6HP PRN 06/04/17 Tolterodine Tartrate [Detrol] 2 mg PO BID 06/04/17 Allergies/Adverse Reactions: zolpidem [From Ambien] Adverse Reaction (Verified 06/03/17 20:55) Review of Systems ROS unobtainable: Due to endotracheal tube Physical Exam Vital Signs: Temp Pulse Resp BP Pulse Ox 98.1 F 14 107/56 L 94 06/04/17 09:41 06/04/17 09:41 06/04/17 09:41 06/04/17 09:41 Intake & Output 06/03/17 06/04/17 06/05/17 06:59 06:59 06:59 Intake Total 100 Output Total 1650 100 Balance -1550 -100 General appearance: PRESENT: no acute distress, disheveled, well-developed, well -nourished. ABSENT: cooperative, mild distress, morbidly obese, obese, severe distress Head exam: PRESENT: atraumatic, normocephalic Eye exam: PRESENT: conjunctiva pale. ABSENT: conjunctival injection, conjunctiva pink, EOMI, nystagmus, periorbital swelling, scleral icterus Mouth exam: PRESENT: dry mucosa, neck supple, tongue midline, other - ET tube in place Teeth exam: PRESENT: poor dentation Neck exam: ABSENT: carotid bruit, JVD, lymphadenopathy, thyromegaly, tracheal deviation, tracheostomy Respiratory exam: PRESENT: crackles, decreased breath sounds, prolonged expiratory phas, rhonchi, symmetrical, unlabored, wheezes. ABSENT: accessory muscle use, chest wall tenderness, clear to auscultation lopez, retraction, stridor, tachypnea Cardiovascular exam: PRESENT: RRR, +S1, +S2, tachycardia Pulses: PRESENT: normal radial pulses GI/Abdominal exam: PRESENT: diminished bowel sounds, soft Gentrourinary exam: PRESENT: indwelling catheter Extremities exam: ABSENT: clubbing, joint swelling Musculoskeletal exam: ABSENT: ambulatory, deformity, dislocation Neurological exam: ABSENT: alert, awake, oriented to person Skin exam: PRESENT: dry, warm Results Laboratory Results: 06/04/17 05:55 06/03/17 06/04/17 06/04/17 22:38 05:55 05:55 Carbonic Acid 1.64 H HCO3/H2CO3 Ratio 15:1 ABG pH 7.29 L ABG pCO2 54.6 H ABG pO2 71.9 L ABG HCO3 25.4 ABG O2 Saturation 92.4 L ABG Base Excess -1.8 FiO2 35% Sodium 140.3 Potassium 4.7 Chloride 106 Carbon Dioxide 24 Anion Gap 10 BUN 23 H Creatinine 1.02 Est GFR ( Amer) > 60 Est GFR (Non-Af Amer) 55 L Glucose 131 H Calcium 9.8 Total Bilirubin 0.5 AST 22 ALT 23 Alkaline Phosphatase 74 Total Protein 6.5 Albumin 3.5 TSH 0.84 06/04/17 06:22 Carbonic Acid 1.47 H HCO3/H2CO3 Ratio 18:1 ABG pH 7.37 ABG pCO2 48.9 H ABG pO2 62.0 L ABG HCO3 27.6 H ABG O2 Saturation 90.9 L ABG Base Excess 1.6 FiO2 40% Sodium Potassium Chloride Carbon Dioxide Anion Gap BUN Creatinine Est GFR ( Amer) Est GFR (Non-Af Amer) Glucose Calcium Total Bilirubin AST ALT Alkaline Phosphatase Total Protein Albumin TSH 06/03/17 06/03/17 19:20 19:20 Creatine Kinase 100 CK-MB (CK-2) 1.79 Troponin I < 0.012 Assessment & Plan - Diagnosis (1) Acute respiratory failure Qualifiers: Respiratory failure complication: hypoxia and hypercapnia Qualified Code(s) : J96.01 - Acute respiratory failure with hypoxia; J96.02 - Acute respiratory failure with hypercapnia; J96.02 - Acute respiratory failure with hypercapnia; J96.02 - Acute respiratory failure with hypercapnia Is this a current diagnosis for this admission?: Yes Plan: Labs- All tests 24 hr 06/03/17 06/04/17 13:52 06:22 Hgb 11.6 L Seg Neuts % (Manual) 83 H ABG pH 7.37 ABG pCO2 48.9 H ABG pO2 62.0 L ABG O2 Saturation 90.9 L FiO2 40% Chest x-ray highly abnormal please see report (2) Leukocytosis Qualifiers: Leukocytosis type: unspecified Qualified Code(s): D72.829 - Elevated white blood cell count, unspecified Is this a current diagnosis for this admission?: Yes Plan: Labs- All tests 24 hr 06/03/17 13:52 WBC 22.5 H Band Neutrophils % 3 Secondary to presumptive pna (3) Acute kidney injury Is this a current diagnosis for this admission?: Yes Plan: Labs- All tests 24 hr 06/04/17 05:55 BUN 23 H Creatinine 1.02 Will follow;possible ATN due to transient hypotension (4) COPD with acute exacerbation Is this a current diagnosis for this admission?: Yes Plan: LABA+ LAMA+ICCS consider phosphodiesterase inhibitor (5) SIRS (systemic inflammatory response syndrome) Is this a current diagnosis for this admission?: Yes - Time Total Critical Time (Minutes): 60
[2017-06-04] MEDS: FAMOTIDINE INJ/PF 20 MG/2 ML SDV IV SCH (21:34)
[2017-06-04] MEDS ORDERED: DEXTROSE 50%-WATER SYRINGE 12.5 GM/25 ML DOSE IV PRN (22:28)
[2017-06-04] MEDS ORDERED: DEXTROSE 50%-WATER SYRINGE 25 GM/50 ML DOSE IV PRN (22:28)
[2017-06-04] MEDS ORDERED: DEXTROSE 40% GEL 15 GM TUBE PO PRN (22:28)
[2017-06-04] MEDS ORDERED: GLUCAGON,HUMAN RECOMB 1 MG INJ IM PRN (22:28)
[2017-06-04] MEDS ORDERED: DEXTROSE 40% GEL 15 GM TUBE X 2 PO PRN (22:28)
[2017-06-04] MEDS ORDERED: INSULIN LISPRO 100 UNIT/ML 3 ML VIAL SUBCUT PRN (22:29)
[2017-06-05] MEDS: PROPOFOL 100 ML IV PRN ×4 (01:08→21:22)
[2017-06-05] MEDS ORDERED: METHYLPREDNISOLONE INJ 40 MG/1 ML SDV ONE (05:29)
[2017-06-05] MEDS: METHYLPREDNISOLONE INJ 40 MG/1 ML SDV IV SCH ×3 (05:39→21:22)
[2017-06-05 05:52] LABS: ARTERIAL BLOOD BASE EXCESS 0.9 mmol/L; ARTERIAL BLOOD H2CO3 1.33 mmol/L (1.05-1.35); ARTERIAL BLOOD HCO3 26.2 mmol/L (20-26); ARTERIAL BLOOD O2 SATURATION 95.3 % (94-98); ARTERIAL BLOOD PCO2 44.3 mmHg (35-45); ARTERIAL BLOOD PH 7.39 (7.35-7.45); ARTERIAL BLOOD PO2 77.3 mmHg (80-100); ARTERIAL BLOOD TOTAL CO2 27.5 mmol/L (21-25)
[2017-06-05 05:58] LABS: ARTERIAL BLOOD FIO2 45%
[2017-06-05 06:01] LABS: HEMATOCRIT 34.9 % (36.0-47.0); HEMOGLOBIN 11.2 g/dL (12.0-15.5); MEAN CORPUSCULAR HEMOGLOBIN 29.1 pg (27.0-33.4); MEAN CORPUSCULAR HGB CONC 32.1 g/dL (32.0-36.0); MEAN CORPUSCULAR VOLUME 91 fl (80-97); PLATELET COUNT 261 10^3/uL (150-450); RED BLOOD COUNT 3.84 10^6/uL (3.72-5.28); RED CELL DISTRIBUTION WIDTH 14.2 % (11.5-14.0)
[2017-06-05 06:04] LABS: ALANINE AMINOTRANSFERASE 38 U/L (9-52); ALBUMIN 3.4 g/dL (3.5-5.0); ALKALINE PHOSPHATASE 68 U/L (38-126); ANION GAP 8 (5-19); ASPARTATE AMINO TRANSFERASE 92 U/L (14-36); BILIRUBIN,DIRECT 0.1 mg/dL (0.0-0.4); BILIRUBIN,TOTAL 0.1 mg/dL (0.2-1.3); BLOOD UREA NITROGEN 32 mg/dL (7-20); CALCIUM 9.1 mg/dL (8.4-10.2); CARBON DIOXIDE 26 mmol/L (22-30); CHLORIDE 106 mmol/L (98-107); GLUCOSE 136 mg/dL (75-110); POTASSIUM 4.8 mmol/L (3.6-5.0); SODIUM 140.3 mmol/L (137-145); TRIGLYCERIDES 163 mg/dL (<150)
[2017-06-05 06:52] LABS: ABSOLUTE LYMPHOCYTES# (MANUAL) 1.5 10^3/uL (0.5-4.7); ABSOLUTE MONOCYTES # (MANUAL) 1.2 10^3/uL (0.1-1.4); BASOPHILS % (MANUAL) 0 % (0-2); EOSINOPHILS % (MANUAL) 0 % (0-6); LYMPHOCYTES % (MANUAL) 5 % (13-45); MONOCYTES % (MANUAL) 4 % (3-13); SEGMENTED NEUTROPHILS % (MAN) 91 % (42-78); TOTAL CELLS COUNTED 100
[2017-06-05 06:54] LABS: PLATELET COMMENT ADEQUATE; PLATELET LARGE PRESENT; RBC MORPHOLOGY COMMENT NORMO-CYTIC/CHROMIC
--- NOTE | 2017-06-05 07:07 | RADIOLOGY REPORT (SQ) ---
EXAM DESCRIPTION: CHEST SINGLE VIEW CLINICAL HISTORY: Acute respiratory failure, intubated COMPARISON: 06/04/2017 FINDINGS: Single frontal view of the chest. Endotracheal tube with tip just below the clavicles. NG tube with tip below the diaphragm. Right IJ central venous catheter. Heart is not enlarged. Lungs are clear. Leads overlie the chest. No acute osseous abnormalities. Upper abdominal soft tissues are unremarkable. IMPRESSION: 1. Stable appearance of the chest. Tubes and lines are unchanged.
[2017-06-05 09:18] LABS: WHITE BLOOD COUNT 30.8 10^3/uL (4.0-10.5)
--- NOTE | 2017-06-05 10:22 | PDOC PROGRESS REPORT ---
Subjective Progress Note for:: 06/05/17 Subjective:: 61-year-old female with a history of COPD presented to the emergency department with shortness of breath. Prior to admission, she had a 3 week history of productive cough. EMS was called because of her symptoms. She had a fever of 103. In the emergency department she was treated with nebulized bronchodilators , oxygen, and even BiPAP, but without improvement. Due to a decrease level of alertness, she was intubated. On admission she was febrile with a temperature of 101.4. Her blood pressure was normal at 124/58. She had expiratory wheezing on exam. Her white count was 22.5. Her initial chest x-ray showed no acute abnormalities. She was admitted for acute respiratory failure with hypercarbia and hypoxia secondary to COPD exacerbation. Pulmonary was consulted. She was started on ceftriaxone and azithromycin, in addition to Solu-Medrol. June 04 She remains on ventilator. Blood cultures negative to date. Urinalysis negative. Empiric antibiotics continued along with steroids. June 05 She remains on ventilator. She is alert. No problems reported overnight. Reason For Visit: ACUTE RESP FAILURE, COPD EXERC, SIRS Physical Exam Vital Signs: Temp Pulse Resp BP Pulse Ox 97.4 F 71 14 159/78 H 99 06/05/17 08:00 06/04/17 21:43 06/05/17 06:33 06/05/17 06:33 06/05/17 09:37 Intake & Output 06/04/17 06/05/17 06/06/17 06:59 06:59 06:59 Intake Total 100 6329 Output Total 1650 1155 100 Balance -1550 5174 -100 Weight 70.9 kg General appearance: PRESENT: no acute distress, well-developed, well-nourished Head exam: PRESENT: atraumatic, normocephalic Eye exam: PRESENT: EOMI, PERRLA Respiratory exam: PRESENT: clear to auscultation lopez, symmetrical, unlabored Cardiovascular exam: PRESENT: RRR. ABSENT: diastolic murmur, rubs, systolic murmur GI/Abdominal exam: PRESENT: normal bowel sounds, soft. ABSENT: distended, guarding, mass, organolmegaly, rebound, tenderness Extremities exam: PRESENT: full ROM. ABSENT: calf tenderness, clubbing, pedal edema Neurological exam: PRESENT: alert Skin exam: ABSENT: cyanosis, pallor Results Laboratory Results: 06/05/17 05:35 06/05/17 05:35 06/04/17 06/05/17 06/05/17 15:05 05:35 05:35 WBC 30.8 H* RBC 3.84 Hgb 11.2 L Hct 34.9 L MCV 91 MCH 29.1 MCHC 32.1 RDW 14.2 H Plt Count 261 Seg Neutrophils % Not Reportable Lymphocytes % Not Reportable Monocytes % Not Reportable Eosinophils % Not Reportable Basophils % Not Reportable Absolute Neutrophils Not Reportable Absolute Lymphocytes Not Reportable Absolute Monocytes Not Reportable Absolute Eosinophils Not Reportable Absolute Basophils Not Reportable Carbonic Acid 1.33 HCO3/H2CO3 Ratio 19:1 ABG pH 7.39 ABG pCO2 44.3 ABG pO2 77.3 L ABG HCO3 26.2 H ABG O2 Saturation 95.3 ABG Base Excess 0.9 FiO2 45% Sodium Potassium Chloride Carbon Dioxide Anion Gap BUN Creatinine Est GFR ( Amer) Est GFR (Non-Af Amer) Glucose Calcium Magnesium 2.3 Total Bilirubin AST ALT Alkaline Phosphatase Total Protein Albumin Triglycerides 06/05/17 05:35 WBC RBC Hgb Hct MCV MCH MCHC RDW Plt Count Seg Neutrophils % Lymphocytes % Monocytes % Eosinophils % Basophils % Absolute Neutrophils Absolute Lymphocytes Absolute Monocytes Absolute Eosinophils Absolute Basophils Carbonic Acid HCO3/H2CO3 Ratio ABG pH ABG pCO2 ABG pO2 ABG HCO3 ABG O2 Saturation ABG Base Excess FiO2 Sodium 140.3 Potassium 4.8 Chloride 106 Carbon Dioxide 26 Anion Gap 8 BUN 32 H Creatinine 0.99 Est GFR ( Amer) > 60 Est GFR (Non-Af Amer) 57 L Glucose 136 H Calcium 9.1 Magnesium 2.4 H Total Bilirubin 0.1 L AST 92 H ALT 38 Alkaline Phosphatase 68 Total Protein 6.0 L Albumin 3.4 L Triglycerides 163 H 06/03/17 06/03/17 19:20 19:20 Creatine Kinase 100 CK-MB (CK-2) 1.79 Troponin I < 0.012 Impressions: Chest X-Ray 06/05/17 06:00 IMPRESSION: 1. Stable appearance of the chest. Tubes and lines are unchanged. Assessment & Plan - Diagnosis (1) Acute respiratory failure Qualifiers: Respiratory failure complication: hypoxia and hypercapnia Qualified Code(s) : J96.01 - Acute respiratory failure with hypoxia; J96.02 - Acute respiratory failure with hypercapnia; J96.02 - Acute respiratory failure with hypercapnia; J96.02 - Acute respiratory failure with hypercapnia Is this a current diagnosis for this admission?: Yes Plan: Continue ventilator. Lungs clear on chest x-ray. Continue broad-spectrum antibiotics mainly because of the elevated white count. Follow-up blood cultures. Continue IV fluids. She is on Pepcid IV twice daily. Appreciate pulmonary assistance. (2) Leukocytosis Qualifiers: Leukocytosis type: unspecified Qualified Code(s): D72.829 - Elevated white blood cell count, unspecified Is this a current diagnosis for this admission?: Yes Plan: Possibly infection. Blood and urine cultures show no growth to date. Possibly related to steroids, however she had an elevated white count prior to the steroids been in the hospital. Consider CT imaging of chest/abdomen/pelvis. (3) COPD with acute exacerbation Is this a current diagnosis for this admission?: Yes Plan: See above. - Time Time Spent with patient: 35 or more minutes Medications reviewed and adjusted accordingly: Yes Anticipated discharge: Home with Homehealth - Inpatient Certification Based on my medical assessment, after consideration of the patient's comorbidities, presenting symptoms, or acuity I expect that the services needed warrant INPATIENT care.: Yes I certify that my determination is in accordance with my understanding of Medicare's requirements for reasonable and necessary INPATIENT services [42 CFR 412.3e].: Yes Medical Necessity: Significant Comorbidiites Make Outpatient Treatment Too Risky , Need Close Monitoring Due to Risk of Patient Decompensation, Need for IV Antibiotics
[2017-06-05] MEDS: ENOXAPARIN SODIUM INJ 30 MG/0.3 ML DISP.SYRIN SUBCUT SCH (10:24)
[2017-06-05] MEDS: FAMOTIDINE INJ/PF 20 MG/2 ML SDV IV SCH ×2 (10:25→21:22)
[2017-06-05] MEDS: LEVOFLOXACIN 750 MG/D5W RTU 750 MG/150 ML RTUPB IV SCH (10:25)
[2017-06-05] MEDS: AZITHROMYCIN 500 MG in DEXTROSE 5%-WATER 250 ML IV SCH (11:24)
[2017-06-05 11:54] LABS: PATH REVIEW PATHOLOGIST REVIEWED
[2017-06-05 12:33] LABS: HEMATOCRIT 35.4 % (36.0-47.0); HEMOGLOBIN 11.5 g/dL (12.0-15.5); MEAN CORPUSCULAR HEMOGLOBIN 29.4 pg (27.0-33.4); MEAN CORPUSCULAR HGB CONC 32.4 g/dL (32.0-36.0); MEAN CORPUSCULAR VOLUME 91 fl (80-97); PLATELET COUNT 272 10^3/uL (150-450); RED BLOOD COUNT 3.91 10^6/uL (3.72-5.28); RED CELL DISTRIBUTION WIDTH 14.2 % (11.5-14.0)
[2017-06-05 12:40] LABS: WHITE BLOOD COUNT 30.5 10^3/uL (4.0-10.5)
[2017-06-05 12:57] LABS: ABSOLUTE LYMPHOCYTES# (MANUAL) 0.6 10^3/uL (0.5-4.7); ABSOLUTE NEUTROPHILS# (MANUAL) 29.9 10^3/uL (1.7-8.2); BAND NEUTROPHILS % (MANUAL) 1 % (3-5); BASOPHILS % (MANUAL) 0 % (0-2); EOSINOPHILS % (MANUAL) 0 % (0-6); LYMPHOCYTES % (MANUAL) 2 % (13-45); MONOCYTES % (MANUAL) 0 % (3-13); PLATELET COMMENT ADEQUATE; POLYCHROMASIA SLIGHT; SEGMENTED NEUTROPHILS % (MAN) 97 % (42-78); TOTAL CELLS COUNTED 100; TOXIC GRANULATION SLIGHT
[2017-06-05] MEDS: CEFTRIAXONE SODIUM 1,000 MG in NORMAL SALINE 100 ML IV SCH (13:23)
--- NOTE | 2017-06-05 21:01 | PDOC PROGRESS REPORT ---
Subjective Progress Note for:: 06/05/17 Subjective:: intubated and sedated Reason For Visit: ACUTE RESP FAILURE, COPD EXERC, SIRS Physical Exam Vital Signs: Temp Pulse Resp BP Pulse Ox 98.4 F 73 0 L 147/73 H 97 06/05/17 19:57 06/05/17 20:00 06/05/17 18:47 06/05/17 18:48 06/05/17 19:22 Intake & Output 06/04/17 06/05/17 06/06/17 06:59 06:59 06:59 Intake Total 100 6329 1493 Output Total 1650 1155 1250 Balance -1550 5174 243 Weight 70.9 kg General appearance: PRESENT: no acute distress, thin, well-developed, well- nourished. ABSENT: cooperative, disheveled Head exam: PRESENT: atraumatic, normocephalic Eye exam: PRESENT: conjunctiva pale. ABSENT: nystagmus, periorbital swelling, scleral icterus Mouth exam: PRESENT: dry mucosa, neck supple, tongue midline, other - ET tube Neck exam: ABSENT: carotid bruit, JVD, lymphadenopathy, thyromegaly, tracheal deviation, tracheostomy Respiratory exam: PRESENT: decreased breath sounds, prolonged expiratory phas, rhonchi, symmetrical, unlabored, wheezes. ABSENT: rales, retraction, stridor, tachypnea Cardiovascular exam: PRESENT: RRR, +S1, +S2, tachycardia Pulses: PRESENT: normal radial pulses GI/Abdominal exam: PRESENT: diminished bowel sounds, soft Gentrourinary exam: PRESENT: indwelling catheter Extremities exam: ABSENT: calf tenderness, clubbing Musculoskeletal exam: ABSENT: deformity, dislocation Neurological exam: ABSENT: alert, awake, oriented to person Skin exam: PRESENT: dry, warm Results Laboratory Results: 06/05/17 12:15 06/05/17 05:35 06/05/17 06/05/17 06/05/17 05:35 05:35 05:35 WBC 30.8 H* RBC 3.84 Hgb 11.2 L Hct 34.9 L MCV 91 MCH 29.1 MCHC 32.1 RDW 14.2 H Plt Count 261 Seg Neutrophils % Not Reportable Lymphocytes % Not Reportable Monocytes % Not Reportable Eosinophils % Not Reportable Basophils % Not Reportable Absolute Neutrophils Not Reportable Absolute Lymphocytes Not Reportable Absolute Monocytes Not Reportable Absolute Eosinophils Not Reportable Absolute Basophils Not Reportable Carbonic Acid 1.33 HCO3/H2CO3 Ratio 19:1 ABG pH 7.39 ABG pCO2 44.3 ABG pO2 77.3 L ABG HCO3 26.2 H ABG O2 Saturation 95.3 ABG Base Excess 0.9 FiO2 45% Sodium 140.3 Potassium 4.8 Chloride 106 Carbon Dioxide 26 Anion Gap 8 BUN 32 H Creatinine 0.99 Est GFR ( Amer) > 60 Est GFR (Non-Af Amer) 57 L Glucose 136 H Calcium 9.1 Magnesium 2.4 H Total Bilirubin 0.1 L AST 92 H ALT 38 Alkaline Phosphatase 68 Total Protein 6.0 L Albumin 3.4 L Triglycerides 163 H 06/05/17 12:15 WBC 30.5 H* RBC 3.91 Hgb 11.5 L Hct 35.4 L MCV 91 MCH 29.4 MCHC 32.4 RDW 14.2 H Plt Count 272 Seg Neutrophils % Not Reportable Lymphocytes % Not Reportable Monocytes % Not Reportable Eosinophils % Not Reportable Basophils % Not Reportable Absolute Neutrophils Not Reportable Absolute Lymphocytes Not Reportable Absolute Monocytes Not Reportable Absolute Eosinophils Not Reportable Absolute Basophils Not Reportable Carbonic Acid HCO3/H2CO3 Ratio ABG pH ABG pCO2 ABG pO2 ABG HCO3 ABG O2 Saturation ABG Base Excess FiO2 Sodium Potassium Chloride Carbon Dioxide Anion Gap BUN Creatinine Est GFR ( Amer) Est GFR (Non-Af Amer) Glucose Calcium Magnesium Total Bilirubin AST ALT Alkaline Phosphatase Total Protein Albumin Triglycerides 06/03/17 06/03/17 19:20 19:20 Creatine Kinase 100 CK-MB (CK-2) 1.79 Troponin I < 0.012 Impressions: Chest X-Ray 06/05/17 06:00 IMPRESSION: 1. Stable appearance of the chest. Tubes and lines are unchanged. Assessment & Plan - Diagnosis (1) Acute respiratory failure Qualifiers: Respiratory failure complication: hypoxia and hypercapnia Qualified Code(s) : J96.01 - Acute respiratory failure with hypoxia; J96.02 - Acute respiratory failure with hypercapnia; J96.02 - Acute respiratory failure with hypercapnia; J96.02 - Acute respiratory failure with hypercapnia Is this a current diagnosis for this admission?: Yes Plan: Labs- All tests 24 hr 06/03/17 06/04/17 13:52 06:22 Hgb 11.6 L Seg Neuts % (Manual) 83 H ABG pH 7.37 ABG pCO2 48.9 H ABG pO2 62.0 L ABG O2 Saturation 90.9 L FiO2 40% Chest x-ray highly abnormal please see report (2) Leukocytosis Qualifiers: Leukocytosis type: unspecified Qualified Code(s): D72.829 - Elevated white blood cell count, unspecified Is this a current diagnosis for this admission?: Yes Plan: Labs- All tests 24 hr 06/05/17 12:15 WBC 30.5 H* Seg Neuts % (Manual) 97 H Band Neutrophils % 1 L (3) Acute kidney injury Is this a current diagnosis for this admission?: Yes Plan: Labs- All tests 24 hr 06/04/17 05:55 BUN 23 H Creatinine 1.02 Will follow;possible ATN due to transient hypotension (4) COPD with acute exacerbation Is this a current diagnosis for this admission?: Yes Plan: LABA+ LAMA+ICCS consider phosphodiesterase inhibitor (5) SIRS (systemic inflammatory response syndrome) Is this a current diagnosis for this admission?: Yes - Time Total Critical Time (Minutes): 35
[2017-06-05 22:12] LABS: URINE AMPHETAMINES SCREEN NEGATIVE; URINE BARBITURATES SCREEN NEGATIVE; URINE BENZODIAZEPINES SCREEN NEGATIVE; URINE COCAINE SCREEN NEGATIVE; URINE MARIJUANA (THC) SCREEN NEGATIVE; URINE METHADONE SCREEN NEGATIVE; URINE PHENCYCLIDINE SCREEN NEGATIVE
[2017-06-05] MEDS: NORMAL SALINE 1000 ML 1,000 ML IV PRN (22:23)
[2017-06-06] MEDS: METHYLPREDNISOLONE INJ 40 MG/1 ML SDV IV SCH ×3 (05:25→21:34)
[2017-06-06] MEDS: PROPOFOL 100 ML IV PRN (05:26)
[2017-06-06 07:07] LABS: ALANINE AMINOTRANSFERASE 50 U/L (9-52); ALBUMIN 3.1 g/dL (3.5-5.0); ALKALINE PHOSPHATASE 59 U/L (38-126); ANION GAP 8 (5-19); ASPARTATE AMINO TRANSFERASE 85 U/L (14-36); BILIRUBIN,DIRECT 0.1 mg/dL (0.0-0.4); BILIRUBIN,TOTAL 0.1 mg/dL (0.2-1.3); BLOOD UREA NITROGEN 40 mg/dL (7-20); CARBON DIOXIDE 24 mmol/L (22-30); CHLORIDE 108 mmol/L (98-107); GLUCOSE 121 mg/dL (75-110); PHOSPHORUS 3.7 mg/dL (2.5-4.5); POTASSIUM 4.5 mmol/L (3.6-5.0); SODIUM 140.3 mmol/L (137-145); TOTAL PROTEIN 5.6 g/dL (6.3-8.2)
[2017-06-06 07:15] LABS: HEMATOCRIT 33.9 % (36.0-47.0); HEMOGLOBIN 11.1 g/dL (12.0-15.5); MEAN CORPUSCULAR HEMOGLOBIN 29.6 pg (27.0-33.4); MEAN CORPUSCULAR HGB CONC 32.8 g/dL (32.0-36.0); MEAN CORPUSCULAR VOLUME 90 fl (80-97); PLATELET COUNT 264 10^3/uL (150-450); RED BLOOD COUNT 3.76 10^6/uL (3.72-5.28); RED CELL DISTRIBUTION WIDTH 14.3 % (11.5-14.0); WHITE BLOOD COUNT 21.2 10^3/uL (4.0-10.5)
--- NOTE | 2017-06-06 07:29 | RADIOLOGY REPORT (SQ) ---
EXAM DESCRIPTION: CHEST SINGLE VIEW CLINICAL HISTORY: Acute respiratory failure, intubated COMPARISON: 06/05/2017 FINDINGS: Single frontal view of the chest. Endotracheal tube with tip just below the clavicles. NG tube with tip below the diaphragm. Right IJ central venous catheter. Heart is not enlarged. Lungs are clear. Leads overlie the chest. No acute osseous abnormalities. Upper abdominal soft tissues are unremarkable. IMPRESSION: 1. Stable appearance of the chest. Tubes and lines are unchanged.
[2017-06-06 07:57] LABS: ARTERIAL BLOOD BASE EXCESS 0.4 mmol/L; ARTERIAL BLOOD FIO2 35%; ARTERIAL BLOOD H2CO3 1.16 mmol/L (1.05-1.35); ARTERIAL BLOOD HCO3 24.6 mmol/L (20-26); ARTERIAL BLOOD O2 SATURATION 96.4 % (94-98); ARTERIAL BLOOD PCO2 38.4 mmHg (35-45); ARTERIAL BLOOD PH 7.43 (7.35-7.45); ARTERIAL BLOOD PO2 82.4 mmHg (80-100); ARTERIAL BLOOD TOTAL CO2 25.8 mmol/L (21-25)
[2017-06-06 08:18] LABS: ABSOLUTE LYMPHOCYTES# (MANUAL) 0.4 10^3/uL (0.5-4.7); ABSOLUTE MONOCYTES # (MANUAL) 0.6 10^3/uL (0.1-1.4); ABSOLUTE NEUTROPHILS# (MANUAL) 20.1 10^3/uL (1.7-8.2); BASOPHILS % (MANUAL) 0 % (0-2); EOSINOPHILS % (MANUAL) 0 % (0-6); HYPOCHROMASIA SLIGHT; LYMPHOCYTES % (MANUAL) 2 % (13-45); MONOCYTES % (MANUAL) 3 % (3-13); PLATELET COMMENT ADEQUATE; POLYCHROMASIA SLIGHT; SEGMENTED NEUTROPHILS % (MAN) 95 % (42-78); TOTAL CELLS COUNTED 100; TOXIC GRANULATION SLIGHT; TOXIC VACUOLATION PRESENT
[2017-06-06] MEDS ORDERED: DEXAMETHASONE SOD PHOSPHATE INJ 4 MG/1 ML VIAL ONE (09:52)
--- NOTE | 2017-06-06 10:18 | PDOC PROGRESS REPORT ---
Subjective Progress Note for:: 06/06/17 Subjective:: 61-year-old female with a history of COPD presented to the emergency department with shortness of breath. Prior to admission, she had a 3 week history of productive cough. EMS was called because of her symptoms. She had a fever of 103. In the emergency department she was treated with nebulized bronchodilators , oxygen, and even BiPAP, but without improvement. Due to a decrease level of alertness, she was intubated. On admission she was febrile with a temperature of 101.4. Her blood pressure was normal at 124/58. She had expiratory wheezing on exam. Her white count was 22.5. Her initial chest x-ray showed no acute abnormalities. She was admitted for acute respiratory failure with hypercarbia and hypoxia secondary to COPD exacerbation. Pulmonary was consulted. She was started on ceftriaxone and azithromycin, in addition to Solu-Medrol. June 04 She remains on ventilator. Blood cultures negative to date. Urinalysis negative. Empiric antibiotics continued along with steroids. June 05 She remains on ventilator. She is alert. No problems reported overnight. Jun 06 She remains on a ventilator. She is alert. No problems reported overnight. Reason For Visit: ACUTE RESP FAILURE, COPD EXERC, SIRS Physical Exam Vital Signs: Temp Pulse Resp BP Pulse Ox 98.1 F 55 L 23 H 142/71 H 97 06/06/17 08:00 06/06/17 08:00 06/06/17 08:00 06/06/17 08:00 06/06/17 08:29 Intake & Output 06/05/17 06/06/17 06/07/17 06:59 06:59 06:59 Intake Total 6329 2671 Output Total 1155 1905 Balance 5174 886 Weight 70.9 kg 69.8 kg General appearance: PRESENT: no acute distress, obese Head exam: PRESENT: atraumatic, normocephalic Eye exam: PRESENT: EOMI, PERRLA Respiratory exam: PRESENT: clear to auscultation lopez. ABSENT: rales, rhonchi, wheezes Cardiovascular exam: PRESENT: RRR. ABSENT: diastolic murmur, rubs, systolic murmur GI/Abdominal exam: PRESENT: normal bowel sounds, soft. ABSENT: distended, guarding, mass, organolmegaly, rebound, tenderness Neurological exam: PRESENT: alert, awake Skin exam: PRESENT: dry, intact, warm. ABSENT: cyanosis, rash Results Laboratory Results: 06/06/17 04:50 06/06/17 04:50 06/05/17 06/06/17 06/06/17 12:15 04:50 04:50 WBC 30.5 H* 21.2 H RBC 3.91 3.76 Hgb 11.5 L 11.1 L Hct 35.4 L 33.9 L MCV 91 90 MCH 29.4 29.6 MCHC 32.4 32.8 RDW 14.2 H 14.3 H Plt Count 272 264 Seg Neutrophils % Not Reportable Not Reportable Lymphocytes % Not Reportable Not Reportable Monocytes % Not Reportable Not Reportable Eosinophils % Not Reportable Not Reportable Basophils % Not Reportable Not Reportable Absolute Neutrophils Not Reportable Not Reportable Absolute Lymphocytes Not Reportable Not Reportable Absolute Monocytes Not Reportable Not Reportable Absolute Eosinophils Not Reportable Not Reportable Absolute Basophils Not Reportable Not Reportable Carbonic Acid 1.16 HCO3/H2CO3 Ratio 21:1 ABG pH 7.43 ABG pCO2 38.4 ABG pO2 82.4 ABG HCO3 24.6 ABG O2 Saturation 96.4 ABG Base Excess 0.4 FiO2 35% Sodium Potassium Chloride Carbon Dioxide Anion Gap BUN Creatinine Est GFR ( Amer) Est GFR (Non-Af Amer) Glucose Lactic Acid Calcium Phosphorus Magnesium Total Bilirubin AST ALT Alkaline Phosphatase Total Protein Albumin 06/06/17 06/06/17 04:50 04:50 WBC RBC Hgb Hct MCV MCH MCHC RDW Plt Count Seg Neutrophils % Lymphocytes % Monocytes % Eosinophils % Basophils % Absolute Neutrophils Absolute Lymphocytes Absolute Monocytes Absolute Eosinophils Absolute Basophils Carbonic Acid HCO3/H2CO3 Ratio ABG pH ABG pCO2 ABG pO2 ABG HCO3 ABG O2 Saturation ABG Base Excess FiO2 Sodium 140.3 Potassium 4.5 Chloride 108 H Carbon Dioxide 24 Anion Gap 8 BUN 40 H Creatinine 0.95 Est GFR ( Amer) > 60 Est GFR (Non-Af Amer) > 60 Glucose 121 H Lactic Acid 0.9 Calcium 9.0 Phosphorus 3.7 Magnesium 2.3 Total Bilirubin 0.1 L AST 85 H ALT 50 Alkaline Phosphatase 59 Total Protein 5.6 L Albumin 3.1 L 06/03/17 06/03/17 19:20 19:20 Creatine Kinase 100 CK-MB (CK-2) 1.79 Troponin I < 0.012 Impressions: Chest X-Ray 06/06/17 06:00 IMPRESSION: 1. Stable appearance of the chest. Tubes and lines are unchanged. Assessment & Plan - Diagnosis (1) Acute respiratory failure Qualifiers: Respiratory failure complication: hypoxia and hypercapnia Qualified Code(s) : J96.01 - Acute respiratory failure with hypoxia; J96.02 - Acute respiratory failure with hypercapnia; J96.02 - Acute respiratory failure with hypercapnia; J96.02 - Acute respiratory failure with hypercapnia Is this a current diagnosis for this admission?: Yes Plan: Discussed with Dr Bernal. She will be extubated today. (2) Leukocytosis Qualifiers: Leukocytosis type: unspecified Qualified Code(s): D72.829 - Elevated white blood cell count, unspecified Is this a current diagnosis for this admission?: Yes Plan: White count is starting to come down. Again, possibly infection. Blood and urine cultures show no growth to date. Possibly related to steroids, however she had an elevated white count prior to the steroids been in the hospital. Consider CT imaging of chest/abdomen/pelvis if it does not improve over the next day or two. (3) COPD with acute exacerbation Is this a current diagnosis for this admission?: Yes Plan: See above. - Time Time Spent with patient: 25-34 minutes Medications reviewed and adjusted accordingly: Yes Anticipated discharge: Home - Inpatient Certification Based on my medical assessment, after consideration of the patient's comorbidities, presenting symptoms, or acuity I expect that the services needed warrant INPATIENT care.: Yes I certify that my determination is in accordance with my understanding of Medicare's requirements for reasonable and necessary INPATIENT services [42 CFR 412.3e].: Yes Medical Necessity: Significant Comorbidiites Make Outpatient Treatment Too Risky , Need Close Monitoring Due to Risk of Patient Decompensation, Need for Nebulizer Therapy and Monitoring of Response
[2017-06-06] MEDS: FAMOTIDINE INJ/PF 20 MG/2 ML SDV IV SCH ×2 (10:46→21:35)
[2017-06-06] MEDS: LEVOFLOXACIN 750 MG/D5W RTU 750 MG/150 ML RTUPB IV SCH (10:46)
[2017-06-06] MEDS: AZITHROMYCIN 500 MG in DEXTROSE 5%-WATER 250 ML IV SCH (10:46)
[2017-06-06] MEDS: ENOXAPARIN SODIUM INJ 30 MG/0.3 ML DISP.SYRIN SUBCUT SCH (10:46)
[2017-06-06] MEDS: CEFTRIAXONE SODIUM 1,000 MG in NORMAL SALINE 100 ML IV SCH (11:17)
[2017-06-06] MEDS: HYDROMORPHONE HCL INJ/PF 2 MG/ML AMPULE IV PRN ×2 (13:51→19:28)
[2017-06-06] MEDS ORDERED: LORAZEPAM INJ 2 MG/1 ML VIAL ONE (22:40)
[2017-06-06] MEDS ORDERED: LORAZEPAM INJ 2 MG/1 ML VIAL IV ONE (23:30)
[2017-06-06 23:36] LABS: INFLUENZA A AB (SERUM) CF 1:32 (Neg:<1:8)
[2017-06-07] MEDS: HYDROMORPHONE HCL INJ/PF 2 MG/ML AMPULE IV PRN (02:07)
[2017-06-07] MEDS: METHYLPREDNISOLONE INJ 40 MG/1 ML SDV IV SCH (05:33)
[2017-06-07 07:04] LABS: INFLUENZA B AB (SERUM) CF 1:16 (Neg:<1:8)
[2017-06-07] MEDS ORDERED: LORAZEPAM INJ 2 MG/1 ML VIAL ONE (08:43)
[2017-06-07] MEDS: NORMAL SALINE 1000 ML 1,000 ML IV PRN ×2 (08:54→22:45)
[2017-06-07] MEDS: ENOXAPARIN SODIUM INJ 30 MG/0.3 ML DISP.SYRIN SUBCUT SCH (08:57)
[2017-06-07] MEDS: LEVOFLOXACIN 750 MG/D5W RTU 750 MG/150 ML RTUPB IV SCH (08:58)
[2017-06-07] MEDS: FAMOTIDINE INJ/PF 20 MG/2 ML SDV IV SCH ×2 (09:01→22:44)
[2017-06-07] MEDS ORDERED: LORAZEPAM INJ 2 MG/1 ML VIAL IV ONE (09:30)
[2017-06-07] MEDS: AZITHROMYCIN 500 MG in DEXTROSE 5%-WATER 250 ML IV SCH (10:27)
--- NOTE | 2017-06-07 11:36 | PDOC PROGRESS REPORT ---
Subjective Progress Note for:: 06/07/17 Subjective:: 61-year-old female with a history of COPD presented to the emergency department with shortness of breath. Prior to admission, she had a 3 week history of productive cough. EMS was called because of her symptoms. She had a fever of 103. In the emergency department she was treated with nebulized bronchodilators , oxygen, and even BiPAP, but without improvement. Due to a decrease level of alertness, she was intubated. On admission she was febrile with a temperature of 101.4. Her blood pressure was normal at 124/58. She had expiratory wheezing on exam. Her white count was 22.5. Her initial chest x-ray showed no acute abnormalities. She was admitted for acute respiratory failure with hypercarbia and hypoxia secondary to COPD exacerbation. Pulmonary was consulted. She was started on ceftriaxone and azithromycin, in addition to Solu-Medrol. June 04 She remains on ventilator. Blood cultures negative to date. Urinalysis negative. Empiric antibiotics continued along with steroids. June 05 She remains on ventilator. She is alert. No problems reported overnight. Jun 06 She remains on a ventilator. She is alert. No problems reported overnight. June 07 She was extubated yesterday, June 06. She has been agitated and requiring as needed lorazepam. She is on BiPAP at night. She is on oxygen during the day. An NG tube is still present. And, she is in restraints. Her right IJ central line is in contact, Reason For Visit: ACUTE RESP FAILURE, COPD EXERC, SIRS Physical Exam Vital Signs: Temp Pulse Resp BP Pulse Ox 98.1 F 68 27 H 157/105 H 100 06/07/17 08:00 06/07/17 08:00 06/07/17 08:00 06/07/17 08:00 06/07/17 08:00 Intake & Output 06/06/17 06/07/17 06/08/17 06:59 06:59 06:59 Intake Total 2291 1523 Output Total 1785 1725 125 Balance 886 -202 -125 Weight 69.8 kg 72.2 kg General appearance: PRESENT: obese Head exam: PRESENT: atraumatic, normocephalic Eye exam: PRESENT: EOMI, PERRLA Respiratory exam: PRESENT: decreased breath sounds, symmetrical, unlabored. ABSENT: accessory muscle use Cardiovascular exam: PRESENT: RRR. ABSENT: diastolic murmur, rubs, systolic murmur GI/Abdominal exam: PRESENT: normal bowel sounds, soft. ABSENT: distended, guarding, mass, organolmegaly, rebound, tenderness Neurological exam: PRESENT: alert, CN II-XII grossly intact Skin exam: PRESENT: dry, intact, warm. ABSENT: cyanosis, rash Results Laboratory Results: 06/06/17 04:50 06/06/17 04:50 06/03/17 06/03/17 19:20 19:20 Creatine Kinase 100 CK-MB (CK-2) 1.79 Troponin I < 0.012 Impressions: Chest X-Ray 06/06/17 06:00 IMPRESSION: 1. Stable appearance of the chest. Tubes and lines are unchanged. Assessment & Plan - Diagnosis (1) Acute respiratory failure Qualifiers: Respiratory failure complication: hypoxia and hypercapnia Qualified Code(s) : J96.01 - Acute respiratory failure with hypoxia; J96.02 - Acute respiratory failure with hypercapnia; J96.02 - Acute respiratory failure with hypercapnia; J96.02 - Acute respiratory failure with hypercapnia Is this a current diagnosis for this admission?: Yes Plan: She was extubated yesterday. She remains on O2 during the day, and BiPAP at night. She can be downgraded to intermediate care. I will continue as needed Lorazepam for agitation. She will need physical therapy. (2) Leukocytosis Qualifiers: Leukocytosis type: unspecified Qualified Code(s): D72.829 - Elevated white blood cell count, unspecified Is this a current diagnosis for this admission?: Yes Plan: White count is starting to come down. Again, possibly infection. Blood and urine cultures show no growth to date. Possibly related to steroids, however she had an elevated white count prior to the steroids been in the hospital. Recheck CBC today and daily. Consider CT imaging of chest/abdomen/pelvis if it does not improve over the next day or two. (3) COPD with acute exacerbation Is this a current diagnosis for this admission?: Yes Plan: See above. - Time Time Spent with patient: 25-34 minutes Medications reviewed and adjusted accordingly: Yes Anticipated discharge: Home with Homehealth Within: within 72 hours - Inpatient Certification Based on my medical assessment, after consideration of the patient's comorbidities, presenting symptoms, or acuity I expect that the services needed warrant INPATIENT care.: Yes I certify that my determination is in accordance with my understanding of Medicare's requirements for reasonable and necessary INPATIENT services [42 CFR 412.3e].: Yes Medical Necessity: Need Close Monitoring Due to Risk of Patient Decompensation
[2017-06-07] MEDS: CEFTRIAXONE SODIUM 1,000 MG in NORMAL SALINE 100 ML IV SCH (13:04)
[2017-06-07] MEDS: METHYLPREDNISOLONE INJ 125 MG/2 ML SDV IV SCH ×2 (13:07→22:44)
[2017-06-07 14:11] LABS: HEMATOCRIT 36.4 % (36.0-47.0); MEAN CORPUSCULAR HEMOGLOBIN 29.7 pg (27.0-33.4); MEAN CORPUSCULAR VOLUME 90 fl (80-97); PLATELET COUNT 250 10^3/uL (150-450); RED BLOOD COUNT 4.04 10^6/uL (3.72-5.28); RED CELL DISTRIBUTION WIDTH 14.1 % (11.5-14.0); WHITE BLOOD COUNT 18.6 10^3/uL (4.0-10.5)
[2017-06-07] MEDS ORDERED: HYDRALAZINE HCL INJ/PF 20 MG/1 ML SDV IV PRN (14:32)
[2017-06-07] MEDS: AMLODIPINE BESYLATE 5 MG TABLET PO SCH (16:05)
[2017-06-07] MEDS: LORAZEPAM INJ 2 MG/1 ML VIAL IV PRN ×2 (16:24→20:22)
[2017-06-08] MEDS: LORAZEPAM INJ 2 MG/1 ML VIAL IV PRN ×4 (00:17→17:36)
[2017-06-08] MEDS: METHYLPREDNISOLONE INJ 125 MG/2 ML SDV IV SCH (05:03)
[2017-06-08 05:37] LABS: ARTERIAL BLOOD BASE EXCESS -2.2 mmol/L; ARTERIAL BLOOD H2CO3 1.26 mmol/L (1.05-1.35); ARTERIAL BLOOD HCO3 23.1 mmol/L (20-26); ARTERIAL BLOOD PCO2 41.7 mmHg (35-45); ARTERIAL BLOOD PH 7.36 (7.35-7.45); ARTERIAL BLOOD PO2 161.2 mmHg (80-100); ARTERIAL BLOOD TOTAL CO2 24.4 mmol/L (21-25)
[2017-06-08 05:38] LABS: ARTERIAL BLOOD FIO2 40%
[2017-06-08 05:39] LABS: HEMATOCRIT 37.3 % (36.0-47.0); HEMOGLOBIN 12.2 g/dL (12.0-15.5); MEAN CORPUSCULAR HEMOGLOBIN 29.2 pg (27.0-33.4); MEAN CORPUSCULAR HGB CONC 32.8 g/dL (32.0-36.0); MEAN CORPUSCULAR VOLUME 89 fl (80-97); PLATELET COUNT 247 10^3/uL (150-450); RED BLOOD COUNT 4.18 10^6/uL (3.72-5.28); RED CELL DISTRIBUTION WIDTH 13.7 % (11.5-14.0); WHITE BLOOD COUNT 15.7 10^3/uL (4.0-10.5)
[2017-06-08 05:53] LABS: ALANINE AMINOTRANSFERASE 93 U/L (9-52); ALBUMIN 3.3 g/dL (3.5-5.0); ALKALINE PHOSPHATASE 61 U/L (38-126); ANION GAP 9 (5-19); BILIRUBIN,DIRECT 0.5 mg/dL (0.0-0.4); BILIRUBIN,TOTAL 0.5 mg/dL (0.2-1.3); BLOOD UREA NITROGEN 34 mg/dL (7-20); CALCIUM 8.7 mg/dL (8.4-10.2); CARBON DIOXIDE 25 mmol/L (22-30); CHLORIDE 103 mmol/L (98-107); GLUCOSE 95 mg/dL (75-110); POTASSIUM 4.2 mmol/L (3.6-5.0); SODIUM 137.3 mmol/L (137-145)
[2017-06-08 05:54] LABS: ASPARTATE AMINO TRANSFERASE 70 U/L (14-36)
[2017-06-08] MEDS: LEVOFLOXACIN 750 MG/D5W RTU 750 MG/150 ML RTUPB IV SCH (09:28)
[2017-06-08] MEDS: ENOXAPARIN SODIUM INJ 30 MG/0.3 ML DISP.SYRIN SUBCUT SCH (09:30)
[2017-06-08] MEDS: FAMOTIDINE INJ/PF 20 MG/2 ML SDV IV SCH ×2 (09:30→21:51)
[2017-06-08] MEDS: CEFTRIAXONE SODIUM 1,000 MG in NORMAL SALINE 100 ML IV SCH (11:26)
[2017-06-08 12:19] LABS: ARTERIAL BLOOD BASE EXCESS 2.1 mmol/L; ARTERIAL BLOOD H2CO3 1.31 mmol/L (1.05-1.35); ARTERIAL BLOOD HCO3 27.1 mmol/L (20-26); ARTERIAL BLOOD PCO2 43.5 mmHg (35-45); ARTERIAL BLOOD PH 7.41 (7.35-7.45); ARTERIAL BLOOD PO2 57.1 mmHg (80-100); ARTERIAL BLOOD TOTAL CO2 28.4 mmol/L (21-25)
[2017-06-08 12:20] LABS: ARTERIAL BLOOD FIO2 2L
--- NOTE | 2017-06-08 14:46 | PDOC PROGRESS REPORT ---
Subjective Progress Note for:: 06/08/17 Subjective:: The patient is a 61-year-old female with underlying COPD. She presented to the emergency department with progressive shortness of breath associated with a productive cough. She was febrile to 103. She failed therapy with BiPAP and got intubated. She was extubated on June 06, 2017. She has been having issues with yelling and inappropriate behavior. Apparently, this is not unusual for her according to her family. Sputum culture is growing oxacillin sensitive staph aureus and Klebsiella. Reason For Visit: ACUTE RESP FAILURE, COPD EXERC, SIRS Physical Exam Vital Signs: Temp Pulse Resp BP Pulse Ox 98.2 F 61 20 159/86 H 98 06/08/17 02:00 06/08/17 08:00 06/08/17 13:10 06/08/17 11:50 06/08/17 13:10 Intake & Output 06/07/17 06/08/17 06/09/17 06:59 06:59 06:59 Intake Total 1523 2078 Output Total 1725 1940 515 Balance -202 138 -515 Weight 72.2 kg 71.2 kg Additional comments: The patient was sleeping this morning. She did wake up to tactile and verbal stimuli. She had no complaints this morning. Her facial appearance is unremarkable. Cranial nerves II through XII are intact. Her lungs are noted to be coarse bilaterally. Cardiac exam demonstrates a regular rate and rhythm without murmurs, gallops or rubs. The abdomen is obese but soft. Bowel sounds are noted in the lower quadrants. She does not have guarding or rebound noted and there are no hernias or masses present. The lower extremities are are without edema. The skin is warm, dry and intact without lesions or rashes. Results Laboratory Results: 06/08/17 05:13 06/08/17 05:13 06/08/17 06/08/17 06/08/17 05:13 05:13 05:13 WBC 15.7 H RBC 4.18 Hgb 12.2 Hct 37.3 MCV 89 MCH 29.2 MCHC 32.8 RDW 13.7 Plt Count 247 Carbonic Acid 1.26 HCO3/H2CO3 Ratio 18:1 ABG pH 7.36 ABG pCO2 41.7 ABG pO2 161.2 H ABG HCO3 23.1 ABG O2 Saturation 99.0 H ABG Base Excess -2.2 FiO2 40% Sodium 137.3 Potassium 4.2 Chloride 103 Carbon Dioxide 25 Anion Gap 9 BUN 34 H Creatinine 0.93 Est GFR ( Amer) > 60 Est GFR (Non-Af Amer) > 60 Glucose 95 Calcium 8.7 Total Bilirubin 0.5 AST 70 H ALT 93 H Alkaline Phosphatase 61 Total Protein 6.0 L Albumin 3.3 L 06/08/17 12:00 WBC RBC Hgb Hct MCV MCH MCHC RDW Plt Count Carbonic Acid 1.31 HCO3/H2CO3 Ratio 20:1 ABG pH 7.41 ABG pCO2 43.5 ABG pO2 57.1 L ABG HCO3 27.1 H ABG O2 Saturation 90.0 L ABG Base Excess 2.1 FiO2 2L Sodium Potassium Chloride Carbon Dioxide Anion Gap BUN Creatinine Est GFR ( Amer) Est GFR (Non-Af Amer) Glucose Calcium Total Bilirubin AST ALT Alkaline Phosphatase Total Protein Albumin 06/05/17 13:00 Tracheal Aspirate Gram Stain - Final 06/05/17 13:00 Tracheal Aspirate Sputum Culture - Final Staphylococcus Aureus Klebsiella Pneumoniae C.albicans/C.dubliniensis Normal Didi Absent 06/03/17 06/03/17 19:20 19:20 Creatine Kinase 100 CK-MB (CK-2) 1.79 Troponin I < 0.012 Impressions: Chest X-Ray 06/06/17 06:00 IMPRESSION: 1. Stable appearance of the chest. Tubes and lines are unchanged. Assessment & Plan - Diagnosis (1) Acute respiratory failure Qualifiers: Respiratory failure complication: hypoxia and hypercapnia Qualified Code(s) : J96.01 - Acute respiratory failure with hypoxia; J96.02 - Acute respiratory failure with hypercapnia; J96.02 - Acute respiratory failure with hypercapnia; J96.02 - Acute respiratory failure with hypercapnia Is this a current diagnosis for this admission?: Yes Plan: Patient appears to be improving with antibiotic therapy, supplemental oxygen and BiPAP as needed. (2) Leukocytosis Qualifiers: Leukocytosis type: unspecified Qualified Code(s): D72.829 - Elevated white blood cell count, unspecified Is this a current diagnosis for this admission?: Yes Plan: Resolving (3) COPD with acute exacerbation Is this a current diagnosis for this admission?: Yes Plan: This appears to be due to acute tracheobronchitis with Staphylococcus aureus and Klebsiella. Both species are sensitive to ceftriaxone but the staph aureus is resistant to Levaquin. For now, I will continue ceftriaxone but discontinue Levaquin. We will continue bronchodilators and corticosteroids. (4) Agitation Is this a current diagnosis for this admission?: Yes Plan: The patient is currently receiving Ativan. I will ensure that she has outpatient psychiatric follow-up. If necessary, I will arrange for inpatient psychiatric follow-up. - Time Time Spent with patient: 25-34 minutes - Inpatient Certification Medical Necessity: Significant Comorbidiites Make Outpatient Treatment Too Risky , Need Close Monitoring Due to Risk of Patient Decompensation, Need for Nebulizer Therapy and Monitoring of Response, Need for Neurological Checks, Need for IV Antibiotics, Risk of Complication if Not Cared For in Hospital
[2017-06-08] MEDS ORDERED: PROMETHAZINE HCL 25 MG TABLET PO PRN (14:48)
[2017-06-08] MEDS ORDERED: ENOXAPARIN SODIUM INJ 30 MG/0.3 ML DISP.SYRIN SUBCUT SCH (14:53)
[2017-06-08] MEDS: BACLOFEN 10 MG TABLET PO SCH (17:37)
[2017-06-08] MEDS: TOLTERODINE TARTRATE 1 MG TABLET PO SCH (17:37)
[2017-06-08] MEDS: AMLODIPINE BESYLATE 5 MG TABLET PO SCH (17:37)
[2017-06-08] MEDS ORDERED: (PENDING PHARMACY ID) (Tolterodine Tartrate [Detrol] 2 MG) PO SCH (18:00)
[2017-06-08] MEDS: HYDROMORPHONE HCL INJ/PF 2 MG/ML AMPULE IV PRN (20:27)
[2017-06-08] MEDS: HYDROXYZINE PAMOATE 25 MG CAPSULE PO SCH (21:48)
[2017-06-08] MEDS: GABAPENTIN 300 MG CAPSULE PO SCH (21:49)
[2017-06-08] MEDS: DOXEPIN HCL 25 MG CAPSULE PO SCH (21:50)
[2017-06-08] MEDS: METHYLPREDNISOLONE INJ 40 MG/1 ML SDV IV SCH (21:51)
[2017-06-08] MEDS ORDERED: (PENDING PHARMACY ID) (Hydroxyzine Hcl [Atarax 25 Mg Tablet] 25 MG) PO SCH (22:00)
[2017-06-08] MEDS ORDERED: (PENDING PHARMACY ID) (Doxepin Hcl [Doxepin Hcl] 100 MG) PO SCH (22:00)
[2017-06-09] MEDS ORDERED: LACTULOSE SYRUP 20 GM/30 ML UDCUP PO ONE (05:00)
[2017-06-09] MEDS: GABAPENTIN 300 MG CAPSULE PO SCH ×3 (05:06→21:49)
[2017-06-09] MEDS: LANSOPRAZOLE 30 MG TAB.RAP.DR PO SCH (05:07)
[2017-06-09] MEDS: HYDROXYZINE PAMOATE 25 MG CAPSULE PO SCH ×3 (05:09→21:47)
[2017-06-09] MEDS ORDERED: NALOXONE HCL SL SCH (10:00)
[2017-06-09] MEDS ORDERED: (PENDING PHARMACY ID) (Citalopram Hydrobromide [Celexa 40 Mg Tablet] 40 MG) PO SCH (10:00)
[2017-06-09] MEDS ORDERED: [UNRECOGNIZED DRUG - OTHER] SL SCH (10:00)
[2017-06-09] MEDS ORDERED: (PENDING PHARMACY ID) (Esomeprazole Mag Trihydrate [Nexium] 40 MG) PO SCH (10:00)
[2017-06-09] MEDS ORDERED: BUPRENORPHINE HCL SL SCH (10:00)
[2017-06-09] MEDS: CITALOPRAM HYDROBROMIDE 20 MG TABLET PO SCH (10:03)
[2017-06-09] MEDS: BACLOFEN 10 MG TABLET PO SCH ×2 (10:04→17:35)
[2017-06-09] MEDS: TOLTERODINE TARTRATE 1 MG TABLET PO SCH ×2 (10:04→17:34)
[2017-06-09] MEDS: CLOPIDOGREL BISULFATE 75 MG TABLET PO SCH (10:05)
[2017-06-09] MEDS: FUROSEMIDE 40 MG TABLET PO SCH (10:05)
[2017-06-09] MEDS: ARIPIPRAZOLE 5 MG TABLET PO SCH (10:05)
[2017-06-09] MEDS: METHYLPREDNISOLONE INJ 40 MG/1 ML SDV IV SCH ×2 (10:05→21:47)
[2017-06-09] MEDS: FLUTICASONE NASAL SPRAY 50 MCG/SPRY 120 SPRAY/16 GM NASL SCH (10:06)
[2017-06-09] MEDS ORDERED: ENOXAPARIN SODIUM INJ 40 MG/0.4 ML DISP.SYRIN SUBCUT ONE (11:00)
[2017-06-09] MEDS: CEFTRIAXONE SODIUM 1,000 MG in NORMAL SALINE 100 ML IV SCH (12:19)
--- NOTE | 2017-06-09 12:21 | PDOC PROGRESS REPORT ---
Subjective Progress Note for:: 06/09/17 Subjective:: The patient is a 61-year-old female with underlying COPD. She presented to the emergency department with progressive shortness of breath associated with a productive cough. She was febrile to 103. She failed therapy with BiPAP and got intubated. She was extubated on June 06, 2017. She has been having issues with yelling and inappropriate behavior. Apparently, this is not unusual for her according to her family. Sputum culture is growing oxacillin sensitive staph aureus and Klebsiella. On 06/08/2017 I restarted the patient's psychiatric medications. Her behavior appears to be more appropriate at this time. Today, she is denying any complaints and asking me if she can go home. Reason For Visit: ACUTE RESP FAILURE, COPD EXERC, SIRS Physical Exam Vital Signs: Temp Pulse Resp BP Pulse Ox 98.3 F 79 18 132/71 H 100 06/09/17 07:10 06/09/17 07:10 06/09/17 07:10 06/09/17 07:10 06/09/17 07:10 Intake & Output 06/08/17 06/09/17 06/10/17 06:59 06:59 06:59 Intake Total 2078 230 Output Total 1940 1715 Balance 138 -1485 Weight 71.2 kg 70.1 kg Additional comments: The patient is awake this morning. She is interactive and asking me if she can go home. Her facial appearance is unremarkable. Cranial nerves II through XII are intact. Today, her pulmonary exam is improved. I do not appreciate any wheezing today. She has minimal rales in the posterior lung boudreaux. Her cardiac exam is regular without murmurs, gallops or rubs. The abdomen is obese but soft. Bowel sounds are present in the lower quadrants. She does not have guarding or rebound present and there are no hernias or masses present. The lower extremities are warm without edema. The skin exam is clean, dry and intact without lesions or rashes. Results Laboratory Results: 06/08/17 05:13 06/08/17 05:13 06/08/17 06/09/17 12:00 04:35 Carbonic Acid 1.31 HCO3/H2CO3 Ratio 20:1 ABG pH 7.41 ABG pCO2 43.5 ABG pO2 57.1 L ABG HCO3 27.1 H ABG O2 Saturation 90.0 L ABG Base Excess 2.1 FiO2 2L Magnesium 1.8 06/05/17 13:00 Tracheal Aspirate Gram Stain - Final 06/05/17 13:00 Tracheal Aspirate Sputum Culture - Final Staphylococcus Aureus Klebsiella Pneumoniae C.albicans/C.dubliniensis Normal Didi Absent 06/03/17 06/03/17 19:20 19:20 Creatine Kinase 100 CK-MB (CK-2) 1.79 Troponin I < 0.012 Assessment & Plan - Diagnosis (1) Acute respiratory failure Qualifiers: Respiratory failure complication: hypoxia and hypercapnia Qualified Code(s) : J96.01 - Acute respiratory failure with hypoxia; J96.02 - Acute respiratory failure with hypercapnia; J96.02 - Acute respiratory failure with hypercapnia; J96.02 - Acute respiratory failure with hypercapnia Is this a current diagnosis for this admission?: Yes Plan: Patient appears to be improving with antibiotic therapy, supplemental oxygen and BiPAP as needed. (2) Leukocytosis Qualifiers: Leukocytosis type: unspecified Qualified Code(s): D72.829 - Elevated white blood cell count, unspecified Is this a current diagnosis for this admission?: Yes Plan: Resolving (3) COPD with acute exacerbation Is this a current diagnosis for this admission?: Yes Plan: This appears to be due to acute tracheobronchitis with Staphylococcus aureus and Klebsiella. Both species are sensitive to ceftriaxone but the staph aureus is resistant to Levaquin. I have continue ceftriaxone and discontinued Levaquin. We will continue bronchodilators and corticosteroids. (4) Agitation Is this a current diagnosis for this admission?: Yes Plan: Patient appears to be improved after restarting her psychiatric medications. - Time Time Spent with patient: 25-34 minutes - Inpatient Certification Medical Necessity: Significant Comorbidiites Make Outpatient Treatment Too Risky , Need Close Monitoring Due to Risk of Patient Decompensation, Need for Nebulizer Therapy and Monitoring of Response, Need for Neurological Checks, Need for IV Antibiotics
--- NOTE | 2017-06-09 13:50 | PDOC PROGRESS REPORT ---
Subjective Progress Note for:: 06/06/17 Subjective:: intubated and lethargic Reason For Visit: ACUTE RESP FAILURE, COPD EXERC, SIRS Physical Exam Vital Signs: Temp Pulse Resp BP Pulse Ox 98.1 F 66 23 H 142/71 H 97 06/06/17 08:00 06/06/17 08:00 06/06/17 08:00 06/06/17 08:00 06/06/17 08:29 Intake & Output 06/05/17 06/06/17 06/07/17 06:59 06:59 06:59 Intake Total 6329 2671 Output Total 1155 1785 Balance 5174 886 Weight 70.9 kg 69.8 kg General appearance: PRESENT: no acute distress, disheveled, well-developed Head exam: PRESENT: atraumatic, normocephalic Eye exam: PRESENT: conjunctiva pale, EOMI. ABSENT: nystagmus, periorbital swelling, scleral icterus Mouth exam: PRESENT: dry mucosa, neck supple, tongue midline, other - ET tube Neck exam: ABSENT: carotid bruit, JVD, lymphadenopathy, thyromegaly, tracheal deviation, tracheostomy Respiratory exam: PRESENT: decreased breath sounds, prolonged expiratory phas, rhonchi, symmetrical, unlabored, wheezes. ABSENT: retraction, stridor, tachypnea Cardiovascular exam: PRESENT: RRR, +S1, +S2 Pulses: PRESENT: normal radial pulses GI/Abdominal exam: PRESENT: diminished bowel sounds, soft Gentrourinary exam: PRESENT: indwelling catheter Extremities exam: ABSENT: calf tenderness, clubbing Musculoskeletal exam: ABSENT: deformity, dislocation Neurological exam: PRESENT: awake Skin exam: PRESENT: dry, warm Results Laboratory Results: 06/06/17 04:50 06/06/17 04:50 06/05/17 06/05/17 06/06/17 05:35 12:15 04:50 WBC 30.8 H* 30.5 H* RBC 3.91 Hgb 11.5 L Hct 35.4 L MCV 91 MCH 29.4 MCHC 32.4 RDW 14.2 H Plt Count 272 Seg Neutrophils % Not Reportable Lymphocytes % Not Reportable Monocytes % Not Reportable Eosinophils % Not Reportable Basophils % Not Reportable Absolute Neutrophils Not Reportable Absolute Lymphocytes Not Reportable Absolute Monocytes Not Reportable Absolute Eosinophils Not Reportable Absolute Basophils Not Reportable Carbonic Acid 1.16 HCO3/H2CO3 Ratio 21:1 ABG pH 7.43 ABG pCO2 38.4 ABG pO2 82.4 ABG HCO3 24.6 ABG O2 Saturation 96.4 ABG Base Excess 0.4 FiO2 35% Sodium Potassium Chloride Carbon Dioxide Anion Gap BUN Creatinine Est GFR ( Amer) Est GFR (Non-Af Amer) Glucose Lactic Acid Calcium Phosphorus Magnesium Total Bilirubin AST ALT Alkaline Phosphatase Total Protein Albumin 06/06/17 06/06/17 06/06/17 04:50 04:50 04:50 WBC 21.2 H RBC 3.76 Hgb 11.1 L Hct 33.9 L MCV 90 MCH 29.6 MCHC 32.8 RDW 14.3 H Plt Count 264 Seg Neutrophils % Not Reportable Lymphocytes % Not Reportable Monocytes % Not Reportable Eosinophils % Not Reportable Basophils % Not Reportable Absolute Neutrophils Not Reportable Absolute Lymphocytes Not Reportable Absolute Monocytes Not Reportable Absolute Eosinophils Not Reportable Absolute Basophils Not Reportable Carbonic Acid HCO3/H2CO3 Ratio ABG pH ABG pCO2 ABG pO2 ABG HCO3 ABG O2 Saturation ABG Base Excess FiO2 Sodium 140.3 Potassium 4.5 Chloride 108 H Carbon Dioxide 24 Anion Gap 8 BUN 40 H Creatinine 0.95 Est GFR ( Amer) > 60 Est GFR (Non-Af Amer) > 60 Glucose 121 H Lactic Acid 0.9 Calcium 9.0 Phosphorus 3.7 Magnesium 2.3 Total Bilirubin 0.1 L AST 85 H ALT 50 Alkaline Phosphatase 59 Total Protein 5.6 L Albumin 3.1 L 06/03/17 06/03/17 19:20 19:20 Creatine Kinase 100 CK-MB (CK-2) 1.79 Troponin I < 0.012 Impressions: Chest X-Ray 06/06/17 06:00 IMPRESSION: 1. Stable appearance of the chest. Tubes and lines are unchanged. Assessment & Plan - Diagnosis (1) Acute respiratory failure Qualifiers: Respiratory failure complication: hypoxia and hypercapnia Qualified Code(s) : J96.01 - Acute respiratory failure with hypoxia; J96.02 - Acute respiratory failure with hypercapnia; J96.02 - Acute respiratory failure with hypercapnia; J96.02 - Acute respiratory failure with hypercapnia Is this a current diagnosis for this admission?: Yes Plan: rr FIO2 MIN VOL stable extubate (2) Leukocytosis Qualifiers: Leukocytosis type: unspecified Qualified Code(s): D72.829 - Elevated white blood cell count, unspecified Is this a current diagnosis for this admission?: Yes Plan: Slowly declining (3) Acute kidney injury Is this a current diagnosis for this admission?: No (4) COPD with acute exacerbation Is this a current diagnosis for this admission?: Yes Plan: Continues to require BiPAP (5) SIRS (systemic inflammatory response syndrome) Is this a current diagnosis for this admission?: No - Time Total Critical Time (Minutes): 40
--- NOTE | 2017-06-09 13:53 | PDOC PROGRESS REPORT ---
Subjective Progress Note for:: 06/07/17 Subjective:: 24 hours status post extubation Reason For Visit: ACUTE RESP FAILURE, COPD EXERC, SIRS Physical Exam Vital Signs: Temp Pulse Resp BP Pulse Ox 98.2 F 66 20 142/73 H 100 06/08/17 02:00 06/07/17 22:00 06/08/17 06:00 06/08/17 05:50 06/08/17 06:00 Intake & Output 06/07/17 06/08/17 06/09/17 06:59 06:59 06:59 Intake Total 1523 2078 Output Total 1725 1940 Balance -202 138 Weight 72.2 kg 71.2 kg General appearance: PRESENT: no acute distress, disheveled, well-developed Head exam: PRESENT: atraumatic Eye exam: PRESENT: conjunctiva pale, EOMI. ABSENT: nystagmus, periorbital swelling, scleral icterus Mouth exam: PRESENT: dry mucosa, neck supple, tongue midline Neck exam: ABSENT: carotid bruit, JVD, lymphadenopathy, thyromegaly, tracheal deviation, tracheostomy Respiratory exam: PRESENT: decreased breath sounds, prolonged expiratory phas, rhonchi, unlabored. ABSENT: crackles, rales, retraction, stridor, symmetrical, tachypnea Cardiovascular exam: PRESENT: RRR, +S1, +S2 Pulses: PRESENT: normal radial pulses GI/Abdominal exam: PRESENT: diminished bowel sounds, soft Extremities exam: ABSENT: clubbing Musculoskeletal exam: ABSENT: deformity, dislocation Neurological exam: PRESENT: alert, awake Psychiatric exam: PRESENT: flat affect Skin exam: PRESENT: dry, warm Results Laboratory Results: 06/08/17 05:13 06/08/17 05:13 06/07/17 06/08/17 06/08/17 13:45 05:13 05:13 WBC 18.6 H 15.7 H RBC 4.04 4.18 Hgb 12.0 12.2 Hct 36.4 37.3 MCV 90 89 MCH 29.7 29.2 MCHC 33.0 32.8 RDW 14.1 H 13.7 Plt Count 250 247 Carbonic Acid 1.26 HCO3/H2CO3 Ratio 18:1 ABG pH 7.36 ABG pCO2 41.7 ABG pO2 161.2 H ABG HCO3 23.1 ABG O2 Saturation 99.0 H ABG Base Excess -2.2 FiO2 40% Sodium Potassium Chloride Carbon Dioxide Anion Gap BUN Creatinine Est GFR ( Amer) Est GFR (Non-Af Amer) Glucose Calcium Total Bilirubin AST ALT Alkaline Phosphatase Total Protein Albumin 06/08/17 05:13 WBC RBC Hgb Hct MCV MCH MCHC RDW Plt Count Carbonic Acid HCO3/H2CO3 Ratio ABG pH ABG pCO2 ABG pO2 ABG HCO3 ABG O2 Saturation ABG Base Excess FiO2 Sodium 137.3 Potassium 4.2 Chloride 103 Carbon Dioxide 25 Anion Gap 9 BUN 34 H Creatinine 0.93 Est GFR ( Amer) > 60 Est GFR (Non-Af Amer) > 60 Glucose 95 Calcium 8.7 Total Bilirubin 0.5 AST 70 H ALT 93 H Alkaline Phosphatase 61 Total Protein 6.0 L Albumin 3.3 L 06/05/17 13:00 Tracheal Aspirate Gram Stain - Final 06/05/17 13:00 Tracheal Aspirate Sputum Culture - Final Staphylococcus Aureus Klebsiella Pneumoniae C.albicans/C.dubliniensis Normal Didi Absent 06/03/17 06/03/17 19:20 19:20 Creatine Kinase 100 CK-MB (CK-2) 1.79 Troponin I < 0.012 Impressions: Chest X-Ray 06/06/17 06:00 IMPRESSION: 1. Stable appearance of the chest. Tubes and lines are unchanged. Assessment & Plan - Diagnosis (1) Acute respiratory failure Qualifiers: Respiratory failure complication: hypoxia and hypercapnia Qualified Code(s) : J96.01 - Acute respiratory failure with hypoxia; J96.02 - Acute respiratory failure with hypercapnia; J96.02 - Acute respiratory failure with hypercapnia; J96.02 - Acute respiratory failure with hypercapnia Is this a current diagnosis for this admission?: Yes Plan: Status post extubation still requiring noninvasive positive pressure ventilation (2) Leukocytosis Qualifiers: Leukocytosis type: unspecified Qualified Code(s): D72.829 - Elevated white blood cell count, unspecified Is this a current diagnosis for this admission?: Yes Plan: Slowly declining (3) Acute kidney injury Is this a current diagnosis for this admission?: Yes Plan: Labs- All tests 24 hr 06/04/17 05:55 BUN 23 H Creatinine 1.02 Will follow;possible ATN due to transient hypotension (4) COPD with acute exacerbation Is this a current diagnosis for this admission?: Yes Plan: Continues to require BiPAP - Time Total Critical Time (Minutes): 40
--- NOTE | 2017-06-09 13:55 | PDOC PROGRESS REPORT ---
Subjective Progress Note for:: 06/08/17 Subjective:: Requiring noninvasive positive pressure ventilation but in no distress Reason For Visit: ACUTE RESP FAILURE, COPD EXERC, SIRS Physical Exam Vital Signs: Temp Pulse Resp BP Pulse Ox 98.2 F 66 20 142/73 H 100 06/08/17 02:00 06/07/17 22:00 06/08/17 06:00 06/08/17 05:50 06/08/17 06:00 Intake & Output 06/07/17 06/08/17 06/09/17 06:59 06:59 06:59 Intake Total 1523 2078 Output Total 1721 1940 Balance -202 138 Weight 72.2 kg 71.2 kg General appearance: PRESENT: no acute distress, cooperative, disheveled, well- developed Head exam: PRESENT: atraumatic Eye exam: PRESENT: conjunctiva pale, EOMI. ABSENT: nystagmus, periorbital swelling, scleral icterus Mouth exam: PRESENT: dry mucosa, neck supple, tongue midline Neck exam: ABSENT: carotid bruit, JVD, lymphadenopathy, thyromegaly, tracheal deviation, tracheostomy Respiratory exam: PRESENT: decreased breath sounds, prolonged expiratory phas, rhonchi, symmetrical, unlabored. ABSENT: rales, retraction, stridor, tachypnea Cardiovascular exam: PRESENT: RRR, +S1, +S2 Pulses: PRESENT: normal radial pulses GI/Abdominal exam: PRESENT: diminished bowel sounds, soft Extremities exam: ABSENT: clubbing Musculoskeletal exam: ABSENT: deformity, dislocation Neurological exam: PRESENT: awake Psychiatric exam: PRESENT: flat affect Skin exam: PRESENT: dry, warm Results Laboratory Results: 06/08/17 05:13 06/08/17 05:13 06/07/17 06/08/17 06/08/17 13:45 05:13 05:13 WBC 18.6 H 15.7 H RBC 4.04 4.18 Hgb 12.0 12.2 Hct 36.4 37.3 MCV 90 89 MCH 29.7 29.2 MCHC 33.0 32.8 RDW 14.1 H 13.7 Plt Count 250 247 Carbonic Acid 1.26 HCO3/H2CO3 Ratio 18:1 ABG pH 7.36 ABG pCO2 41.7 ABG pO2 161.2 H ABG HCO3 23.1 ABG O2 Saturation 99.0 H ABG Base Excess -2.2 FiO2 40% Sodium Potassium Chloride Carbon Dioxide Anion Gap BUN Creatinine Est GFR ( Amer) Est GFR (Non-Af Amer) Glucose Calcium Total Bilirubin AST ALT Alkaline Phosphatase Total Protein Albumin 06/08/17 05:13 WBC RBC Hgb Hct MCV MCH MCHC RDW Plt Count Carbonic Acid HCO3/H2CO3 Ratio ABG pH ABG pCO2 ABG pO2 ABG HCO3 ABG O2 Saturation ABG Base Excess FiO2 Sodium 137.3 Potassium 4.2 Chloride 103 Carbon Dioxide 25 Anion Gap 9 BUN 34 H Creatinine 0.93 Est GFR ( Amer) > 60 Est GFR (Non-Af Amer) > 60 Glucose 95 Calcium 8.7 Total Bilirubin 0.5 AST 70 H ALT 93 H Alkaline Phosphatase 61 Total Protein 6.0 L Albumin 3.3 L 06/05/17 13:00 Tracheal Aspirate Gram Stain - Final 06/05/17 13:00 Tracheal Aspirate Sputum Culture - Final Staphylococcus Aureus Klebsiella Pneumoniae C.albicans/C.dubliniensis Normal Didi Absent 06/03/17 06/03/17 19:20 19:20 Creatine Kinase 100 CK-MB (CK-2) 1.79 Troponin I < 0.012 Impressions: Chest X-Ray 06/06/17 06:00 IMPRESSION: 1. Stable appearance of the chest. Tubes and lines are unchanged. Assessment & Plan - Diagnosis (1) Acute respiratory failure Qualifiers: Respiratory failure complication: hypoxia and hypercapnia Qualified Code(s) : J96.01 - Acute respiratory failure with hypoxia; J96.02 - Acute respiratory failure with hypercapnia; J96.02 - Acute respiratory failure with hypercapnia; J96.02 - Acute respiratory failure with hypercapnia Is this a current diagnosis for this admission?: Yes Plan: Status post extubation still requiring noninvasive positive pressure ventilation (2) Leukocytosis Qualifiers: Leukocytosis type: unspecified Qualified Code(s): D72.829 - Elevated white blood cell count, unspecified Is this a current diagnosis for this admission?: Yes Plan: Slowly declining (3) Acute kidney injury Is this a current diagnosis for this admission?: Yes (4) COPD with acute exacerbation Is this a current diagnosis for this admission?: Yes Plan: Continues to require BiPAP (5) SIRS (systemic inflammatory response syndrome) Is this a current diagnosis for this admission?: Yes
--- NOTE | 2017-06-09 14:26 | RADIOLOGY REPORT (SQ) ---
EXAM DESCRIPTION: CHEST SINGLE VIEW COMPLETED DATE/TIME: 06/09/2017 8:19 am REASON FOR STUDY: pna COMPARISON: Chest films 04/07/2016, 06/04/2017, 06/05/2017, 06/06/2017 EXAM PARAMETERS: NUMBER OF VIEWS: One view. TECHNIQUE: Single frontal radiographic view of the chest acquired. RADIATION DOSE: NA LIMITATIONS: None. FINDINGS: LUNGS AND PLEURA: No opacities, masses or pneumothorax. No pleural effusion. MEDIASTINUM AND HILAR STRUCTURES: No masses. Contour normal. HEART AND VASCULAR STRUCTURES: Heart normal in size. Normal vasculature. BONES: No acute findings. HARDWARE: Endotracheal and nasogastric tubes have been removed. Right jugular central line tip super ior vena cava OTHER: No other significant finding. IMPRESSION: No focal infiltrates ETT and NG tube have been removed. TECHNICAL DOCUMENTATION: JOB ID: [id number] [employer])- All Rights Reserved Reading location - IP/workstation name: [email or web address]
[2017-06-09] MEDS: AMLODIPINE BESYLATE 5 MG TABLET PO SCH (17:35)
[2017-06-09] MEDS ORDERED: VALACYCLOVIR HCL 500 MG TABLET PO ONE (21:00)
[2017-06-09] MEDS: DOXEPIN HCL 25 MG CAPSULE PO SCH (21:48)
[2017-06-09] MEDS ORDERED: VALACYCLOVIR HCL 500 MG TABLET ONE (22:07)
[2017-06-10 04:48] LABS: ABSOLUTE LYMPHOCYTES (AUTO) 0.8 10^3/uL (0.5-4.7); ABSOLUTE MONOCYTES (AUTO) 0.6 10^3/uL (0.1-1.4); ABSOLUTE NEUT (AUTO) 14.1 10^3/uL (1.7-8.2); BASOPHILS % (AUTO) 0.1 % (0-2); HEMATOCRIT 36.4 % (36.0-47.0); HEMOGLOBIN 12.1 g/dL (12.0-15.5); LYMPHOCYTES % (AUTO) 5.2 % (13-45); MEAN CORPUSCULAR HEMOGLOBIN 29.4 pg (27.0-33.4); MEAN CORPUSCULAR HGB CONC 33.2 g/dL (32.0-36.0); MEAN CORPUSCULAR VOLUME 89 fl (80-97); MONOCYTES % (AUTO) 4.1 % (3-13); PLATELET COUNT 230 10^3/uL (150-450); RED BLOOD COUNT 4.11 10^6/uL (3.72-5.28); RED CELL DISTRIBUTION WIDTH 13.8 % (11.5-14.0); SEGMENTED NEUTROPHILS % (AUTO) 90.6 % (42-78); TOTAL CELLS COUNTED % (AUTO) 100 %; WHITE BLOOD COUNT 15.6 10^3/uL (4.0-10.5)
[2017-06-10] MEDS: GABAPENTIN 300 MG CAPSULE PO SCH (05:05)
[2017-06-10] MEDS: LANSOPRAZOLE 30 MG TAB.RAP.DR PO SCH (05:05)
[2017-06-10] MEDS: HYDROXYZINE PAMOATE 25 MG CAPSULE PO SCH (05:05)
[2017-06-10 07:30] LABS: ANION GAP 10 (5-19); BLOOD UREA NITROGEN 30 mg/dL (7-20); CALCIUM 8.9 mg/dL (8.4-10.2); CARBON DIOXIDE 32 mmol/L (22-30); CHLORIDE 95 mmol/L (98-107); GLUCOSE 153 mg/dL (75-110); POTASSIUM 3.7 mmol/L (3.6-5.0); SODIUM 136.8 mmol/L (137-145)
[2017-06-10] MEDS: METHYLPREDNISOLONE INJ 40 MG/1 ML SDV IV SCH (09:06)
[2017-06-10] MEDS: TOLTERODINE TARTRATE 1 MG TABLET PO SCH (09:08)
[2017-06-10] MEDS: CITALOPRAM HYDROBROMIDE 20 MG TABLET PO SCH (09:08)
[2017-06-10] MEDS: CLOPIDOGREL BISULFATE 75 MG TABLET PO SCH (09:08)
[2017-06-10] MEDS: ARIPIPRAZOLE 5 MG TABLET PO SCH (09:09)
[2017-06-10] MEDS: FUROSEMIDE 40 MG TABLET PO SCH (09:09)
[2017-06-10] MEDS: BACLOFEN 10 MG TABLET PO SCH (09:09)
[2017-06-10] MEDS: FLUTICASONE NASAL SPRAY 50 MCG/SPRY 120 SPRAY/16 GM NASL SCH (09:11)
[2017-06-10] MEDS ORDERED: ENOXAPARIN SODIUM INJ 40 MG/0.4 ML DISP.SYRIN SUBCUT SCH (10:00)
[2017-06-10] MEDS ORDERED: VALACYCLOVIR HCL 500 MG TABLET PO SCH (10:00)
--- NOTE | 2017-06-10 11:16 | PDOC DISCHARGE SUMMARY ---
General - Admit/Disc Date/PCP Admission Date/Primary Care Provider: 06/03/17 17:19 OCTAVIO MOLINA Discharge Date: 06/10/17 - Discharge Diagnosis (1) Acute respiratory failure Is this a current diagnosis for this admission?: Yes (2) COPD with acute exacerbation Is this a current diagnosis for this admission?: Yes (3) Leukocytosis Is this a current diagnosis for this admission?: Yes (4) Agitation Is this a current diagnosis for this admission?: Yes (5) Transaminitis Is this a current diagnosis for this admission?: Yes - Additional Information Resuscitation Status: Full Code Discharge Diet: As Tolerated Discharge Activity: Balance Activity w/Rest, Slowly Increase Activity Prescriptions: Amlodipine Besylate [Norvasc 5 mg Tablet] 5 mg PO QPM 30 Days #30 tablet Cefpodoxime Proxetil [Vantin 200 mg Tablet] 2 tab PO Q12 5 Days #20 tab Prednisone [Deltasone 20 mg Tablet] 40 mg PO DAILY 5 Days #5 tablet Home Medications: Aripiprazole [Abilify 5 mg Tablet] 5 mg PO DAILY 06/04/17 Baclofen [Baclofen 10 mg Tablet] 10 mg PO BID 06/04/17 Buprenorphine HCl/Naloxone HCl [Suboxone 8 mg-2 mg Sl Film] 2 film SL DAILY Citalopram Hydrobromide [Celexa 40 mg Tablet] 40 mg PO DAILY 06/04/17 Clopidogrel Bisulfate [Plavix 75 mg Tablet] 75 mg PO DAILY 06/04/17 Doxepin HCl 100 mg PO QHS 06/04/17 Esomeprazole Mag Trihydrate [Nexium] 40 mg PO DAILY 06/04/17 Fluticasone Propionate [Flonase Nasal [place] 50 Mcg/[place] 16 gm] 1 spray NASL DAILY 06/04/17 Furosemide [Lasix 40 mg Tablet] 40 mg PO DAILY 06/04/17 Gabapentin [Neurontin 300 mg Capsule] 600 mg PO Q8 06/04/17 Hydroxyzine HCl [Atarax 25 mg Tablet] 25 mg PO Q8 06/04/17 Ipratropium/Albuterol Sulfate [Combivent Respimat 4 gm Mdi] 1 puff IH QID Promethazine HCl [Phenergan 25 mg Tablet] 25 mg PO Q6HP PRN 06/04/17 Tolterodine Tartrate [Detrol] 2 mg PO BID 06/04/17 Amlodipine Besylate [Norvasc 5 mg Tablet] 5 mg PO QPM 30 Days #30 tablet Cefpodoxime Proxetil [Vantin 200 mg Tablet] 2 tab PO Q12 5 Days #20 tab Prednisone [Deltasone 20 mg Tablet] 40 mg PO DAILY 5 Days #5 tablet 06/10/17 History of Present Illness History of Present Illness: PIEDAD GILES is a 61 year old female with history of COPD, apparently with history of intubation, who presented to the ED with shortness of breath. Apparently she has had about 3 weeks of cough that is productive. When EMS arrived, patient was found to have a temperature 103. She was treated with Tylenol. In the ED she was found to have temperature 101.4. She was in respiratory distress and was treated with nebulizers and O2 and was tried on BiPAP, but apparently with no improvement and patient had decreased mental status. She was intubated and referred to the hospitalist service for admission. Hospital Course Hospital Course: The patient is a 61-year-old female with underlying COPD. She presented to the emergency department with progressive shortness of breath associated with a productive cough. She was febrile to 103. She failed therapy with BiPAP and got intubated. She was extubated on June 06, 2017. She has been having issues with yelling and inappropriate behavior. Apparently, this is not unusual for her according to her family. Sputum culture is growing oxacillin sensitive Staphylococcal aureus and Klebsiella pneumoniae as well as Tamra albicans and dubliniensis. On 06/08/2017 I restarted the patient's psychiatric medications. Now, her behavior appears to be back to baseline. Yesterday, she was asking to go home. I told her that she was not ready and she agreed to stay another day. Today, she is denying any complaints and asking me if she can go home. She told the nurse that will leave AMA if not discharged. The overnight physician started her on valacyclovir. She does have a lesion on her lip. However, she was noted to have mildly increased liver function tests on the day of admission. Both AST and ALT were less than 100 and the patient is asymptomatic. I am not going to discharge her on valacyclovir. I will have her follow-up with her primary care doctor for repeat labs in 7-10 days. Physical Exam Vital Signs: Temp Pulse Resp BP Pulse Ox 98.5 F 64 20 100/38 L 97 06/10/17 07:49 06/10/17 07:49 06/10/17 07:49 06/10/17 07:49 06/10/17 08:35 Intake & Output 06/09/17 06/10/17 06/11/17 06:59 06:59 06:59 Intake Total 230 1424 Output Total 1715 2100 Balance -1485 -676 Weight 70.1 kg 65.2 kg Additional comments: The patient is sitting up in bed. She is on room air. She does not appear to be in any distress. She is mentating appropriately and answers questions appropriately. Her neurological exam is nonfocal. Her facial appearance is unremarkable but she does have an ulcer on the top right lip. This is already crusted over. The lung sounds are fairly improved. They do show some sparse rhonchi in the posterior lung boudreaux but have been improving on a daily basis. The cardiac exam is regular without murmurs, gallops or rubs. The abdomen is soft and flat. Bowel sounds are present in the lower quadrants. The patient does not have guarding or rebound noted and there are no hernias or masses present. The lower extremities are unremarkable. The patient does not have any pitting edema present. The skin is warm dry and intact. The only lesion that I see is on the patient's top right lip. Results Laboratory Results: 06/10/17 04:07 06/10/17 04:07 06/10/17 06/10/17 04:07 04:07 WBC 15.6 H RBC 4.11 Hgb 12.1 Hct 36.4 MCV 89 MCH 29.4 MCHC 33.2 RDW 13.8 Plt Count 230 Seg Neutrophils % 90.6 H Lymphocytes % 5.2 L Monocytes % 4.1 Eosinophils % 0.0 Basophils % 0.1 Absolute Neutrophils 14.1 H Absolute Lymphocytes 0.8 Absolute Monocytes 0.6 Absolute Eosinophils 0.0 Absolute Basophils 0.0 Sodium 136.8 L Potassium 3.7 Chloride 95 L Carbon Dioxide 32 H Anion Gap 10 BUN 30 H Creatinine 1.00 Est GFR ( Amer) > 60 Est GFR (Non-Af Amer) 56 L Glucose 153 H Calcium 8.9 Magnesium 1.9 06/03/17 06/03/17 19:20 19:20 Creatine Kinase 100 CK-MB (CK-2) 1.79 Troponin I < 0.012 Impressions: Chest X-Ray 06/09/17 06:00 IMPRESSION: No focal infiltrates ETT and NG tube have been removed. Qualifiers - * P[place]INT BEING DISCHARGED WITH ANY OF THE FOLLOWING DIAGNOSIS?: No Plan Discharge Plan: The patient will be discharged to home. She will complete an additional 5 days of prednisone and an additional 5 days of antibiotics. She will need to follow- up with her primary child care leader in approximately 7-10 days. I would recommend lab work to recheck the elevated liver function tests. In addition, the patient was noted to have leukocytosis during his hospitalization. This is likely demargination from steroids but again should be followed after discharge. Time Spent: Greater than 30 Minutes
[2017-06-10 11:59] VITALS: BP 154/77
[2017-06-10] MEDS ORDERED: CEFPODOXIME 200 MG TABLET PO SCH (22:00)
[2017-06-11] MEDS ORDERED: PREDNISONE 20 MG TABLET PO SCH (10:00)
== END 2017-06-10 13:24 | disposition home or self-care (01) | DRG 208 ==
LOC: ER 13:28 → EH 17:19 → ICU 06-04 21:12 → 3W 06-08 13:38
PROVIDERS: ADMIT Internal Medicine; ATTEND Internal Medicine
PROC: 5A1945Z Respiratory Ventilation, 24-96 Consecutive Hours (ICD-10-PCS; principal; 2017-06-03)
PROC: 0BH17EZ Insertion of Endotracheal Airway into Trachea, Via Natural or Artificial Opening (ICD-10-PCS; 2017-06-03)
PROC: 02HV33Z Insertion of Infusion Device into Superior Vena Cava, Percutaneous Approach (ICD-10-PCS; 2017-06-03)
DX: J96.21 Acute and chronic respiratory failure with hypoxia (principal); J44.1 Chronic obstructive pulmonary disease with (acute) exacerbation; N17.9 Acute kidney failure, unspecified; J96.22 Acute and chronic respiratory failure with hypercapnia; R74.0 Nonspecific elevation of levels of transaminase and lactic acid dehydrogenase [LDH]; I11.0 Hypertensive heart disease with heart failure; I50.9 Heart failure, unspecified; R45.1 Restlessness and agitation; I25.10 Atherosclerotic heart disease of native coronary artery without angina pectoris; D72.829 Elevated white blood cell count, unspecified; E11.9 Type 2 diabetes mellitus without complications; E03.9 Hypothyroidism, unspecified; M79.7 Fibromyalgia; F31.9 Bipolar disorder, unspecified; B95.61 Methicillin susceptible Staphylococcus aureus infection as the cause of diseases classified elsewhere; B96.1 Klebsiella pneumoniae [K. pneumoniae] as the cause of diseases classified elsewhere; I87.2 Venous insufficiency (chronic) (peripheral); F32.9 Major depressive disorder, single episode, unspecified; I25.2 Old myocardial infarction; Z90.49 Acquired absence of other specified parts of digestive tract; Z87.891 Personal history of nicotine dependence; Z88.8 Allergy status to other drugs, medicaments and biological substances; Z78.1 Physical restraint status
CPT/HCPCS: 36415; 51702; 71045; 80048; 80053; 80307; 81001; 82550; 82553; 82803; 82962; 83036; 83605; 83735; 84100; 84443; 84478; 84484; 85025; 85027; 85610; 86710; 87040; 87070; 87077; 87086; 87186; 87205; 93005; 93010; 94002; 94003; 94640; 94660; 94799; 96361; 96365; 96366; 96367; 96368; 96375; 96376; 99291; 99292; C1751; G8978-GP; G8979-GP; J0456; J0696; J1100; J1170; J1650; J1815; J1956; J2060; J2704; J2920; J2930; J3475; J3490; J7030; J7060; J7620; S0028

== ENCOUNTER 2017-09-06 05:08 | Emergency (ER) | payer MEDICARE, MEDICAID ==
--- NOTE | 2017-09-06 05:39 | ER Document Report ---
ED Medical Screen (RME) - General Chief Complaint: Tremor Stated Complaint: MUSCLE WEAKNESS Time Seen by Provider: 09/06/17 05:31 Notes: 62-year-old female, chief complaint of muscle jerks for the past 2 days, she states she keeps getting random muscle jerks which are keeping her awake and now she is exhausted. She states that she had this recently and they found her magnesium was 2 low, she states they stopped with a fix this. She denies any nausea vomiting, shortness of breath, chest pain, fever. Patient has chronic respiratory failure with oxygen use, initial pulse ox was low, she was given initial DuoNeb treatment, she states she does not feel any worse than her usual. TRAVEL OUTSIDE OF THE [place] IN LAST 30 DAYS: No - Related Data Allergies/Adverse Reactions: zolpidem [From Ambien] Adverse Reaction (Verified 06/03/17 20:55) Past Medical History - Social History Chew tobacco use (# tins/day): No Frequency of alcohol use: None - Past Medical History Cardiac Medical History: Reports: Hx Congestive Heart Failure, Hx Coronary Artery Disease, Hx Heart Attack, Hx Hypertension Pulmonary Medical History: Reports: Hx COPD, Hx Pneumonia, Hx Intubation, Hx Respiratory Failure Denies: Hx Tuberculosis Neurological Medical History: Denies: Hx Seizures Endocrine Medical History: Reports: Hx Diabetes Mellitus Type 2, Hx Hypothyroidism Renal/ Medical History: Denies: Hx Peritoneal Dialysis Musculoskeltal Medical History: Reports Hx Fibromyalgia Psychiatric Medical History: Reports: Hx Bipolar Disorder, Hx Depression Past Surgical History: Reports: Hx Appendectomy, Hx Cardiac Catheterization, Hx Cardiac Surgery, Hx Section. Denies: Hx Pacemaker - Immunizations Hx Diphtheria, Pertussis, Tetanus Vaccination: Yes Physical Exam - Vital signs Vitals: Pulse Ox 88 L 09/06/17 05:14 - General General appearance: Other - Patient does have frequent jerking of her body and muscles which appears to be involuntary - Neurological Neuro grossly intact: Yes Cognition: Normal Orientation: AAOx4 [place] Coma Scale Eye Opening: Spontaneous [place] Coma Scale Verbal: Oriented [place] Coma Scale Motor: Obeys Commands [place] Coma Scale Total: 15 Speech: Normal Cranial nerves: Normal Cerebellar coordination: Normal Motor strength normal: LUE, RUE, LLE, RLE 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
[2017-09-06 06:14] LABS: ABSOLUTE EOSINOPHILS # (AUTO) 0.1 10^3/uL (0.0-0.6); ABSOLUTE LYMPHOCYTES (AUTO) 1.7 10^3/uL (0.5-4.7); ABSOLUTE MONOCYTES (AUTO) 0.8 10^3/uL (0.1-1.4); ABSOLUTE NEUT (AUTO) 5.3 10^3/uL (1.7-8.2); BASOPHILS % (AUTO) 0.4 % (0-2); EOSINOPHILS % (AUTO) 1.8 % (0-6); HEMATOCRIT 37.4 % (36.0-47.0); HEMOGLOBIN 12.5 g/dL (12.0-15.5); MEAN CORPUSCULAR HEMOGLOBIN 29.4 pg (27.0-33.4); MEAN CORPUSCULAR HGB CONC 33.3 g/dL (32.0-36.0); MEAN CORPUSCULAR VOLUME 88 fl (80-97); MONOCYTES % (AUTO) 10.4 % (3-13); PLATELET COUNT 279 10^3/uL (150-450); RED BLOOD COUNT 4.23 10^6/uL (3.72-5.28); RED CELL DISTRIBUTION WIDTH 13.5 % (11.5-14.0); SEGMENTED NEUTROPHILS % (AUTO) 66.4 % (42-78); TOTAL CELLS COUNTED % (AUTO) 100 %
[2017-09-06 06:30] LABS: ALANINE AMINOTRANSFERASE 22 U/L (9-52); ALKALINE PHOSPHATASE 75 U/L (38-126); ANION GAP 9 (5-19); ASPARTATE AMINO TRANSFERASE 33 U/L (14-36); BILIRUBIN,DIRECT 0.2 mg/dL (0.0-0.4); BILIRUBIN,TOTAL 0.2 mg/dL (0.2-1.3); BLOOD UREA NITROGEN 21 mg/dL (7-20); CALCIUM 9.2 mg/dL (8.4-10.2); CARBON DIOXIDE 35 mmol/L (22-30); CHLORIDE 102 mmol/L (98-107); CREATINE KINASE 200 U/L (30-135); GLUCOSE 110 mg/dL (75-110); POTASSIUM 4.5 mmol/L (3.6-5.0); SODIUM 145.9 mmol/L (137-145); TOTAL PROTEIN 7.2 g/dL (6.3-8.2)
[2017-09-06] MEDS ORDERED: LORAZEPAM INJ 2 MG/1 ML VIAL IV ONE (06:52)
--- NOTE | 2017-09-06 07:09 | ER Document Report ---
ED General - General Chief Complaint: Tremor Stated Complaint: MUSCLE WEAKNESS Time Seen by Provider: 09/06/17 05:31 Mode of Arrival: Ambulatory Information source: Patient Notes: 62-year-old female on multiple medications presents with complaints of cramping spasms. Patient notes symptoms started yesterday. Patient notes similar episode in the past due to low magnesium. Patient denies any fevers or chills denies any new medications TRAVEL OUTSIDE OF THE [place] IN LAST 30 DAYS: No - HPI Onset: Yesterday Onset/Duration: Sudden Quality of pain: Cramping - Cramping Severity: Mild Pain Level: 1 Associated symptoms: Other Exacerbated by: Denies Relieved by: Denies Similar symptoms previously: Yes Recently seen / treated by doctor: No - Related Data Allergies/Adverse Reactions: zolpidem [From Ambien] Adverse Reaction (Verified 06/03/17 20:55) Past Medical History - Social History Smoking Status: Current Some Day Smoker Cigarette use (# per day): Yes Chew tobacco use (# tins/day): No Smoking Education Provided: No Frequency of alcohol use: None Family History: Reviewed & Not Pertinent Patient has suicidal ideation: No Patient has homicidal ideation: No - Past Medical History Cardiac Medical History: Reports: Hx Congestive Heart Failure, Hx Coronary Artery Disease, Hx Heart Attack, Hx Hypertension Pulmonary Medical History: Reports: Hx COPD, Hx Pneumonia, Hx Intubation, Hx Respiratory Failure Denies: Hx Tuberculosis Neurological Medical History: Denies: Hx Seizures Endocrine Medical History: Reports: Hx Diabetes Mellitus Type 2, Hx Hypothyroidism Renal/ Medical History: Denies: Hx Peritoneal Dialysis Musculoskeltal Medical History: Reports Hx Fibromyalgia Psychiatric Medical History: Reports: Hx Bipolar Disorder, Hx Depression Past Surgical History: Reports: Hx Appendectomy, Hx Cardiac Catheterization, Hx Cardiac Surgery, Hx Section. Denies: Hx Pacemaker - Immunizations Hx Diphtheria, Pertussis, Tetanus Vaccination: Yes Hx Pneumococcal Vaccination: 04/16/09 Review of Systems - Review of Systems Notes: REVIEW OF SYSTEMS: CONSTITUTIONAL : Denies fever, chills, or sweats. Denies recent illness. EENT: Denies eye, ear, throat, or mouth pain or symptoms. Denies nasal or sinus congestion or discharge. Denies throat, tongue, or mouth swelling or difficulty swallowing. CARDIOVASCULAR: Denies chest pain. Denies palpitations or racing or irregular heart beat. Denies ankle edema. RESPIRATORY: Admits to COPD baseline nasal cannula GASTROINTESTINAL: Denies abdominal pain or distention. Denies nausea, vomiting , or diarrhea. Denies blood in vomitus, stools, or per rectum. Denies black, tarry stools. Denies constipation. GENITOURINARY: Denies difficulty urinating, painful urination, burning, frequency, blood in urine, or discharge. MUSCULOSKELETAL: Denies back or neck pain or stiffness. Denies joint pain or swelling. SKIN: Denies rash, lesions or sores. HEMATOLOGIC : Denies easy bruising or bleeding. LYMPHATIC: Denies swollen, enlarged glands. NEUROLOGICAL: Denies confusion or altered mental status. Denies passing out or loss of consciousness. Denies dizziness or lightheadedness. Denies headache. Admits to shaking episodes PSYCHIATRIC: Denies anxiety or stress. Denies depression, suicidal ideation, or homicidal ideation. ALL OTHER SYSTEMS REVIEWED AND NEGATIVE. Dictation was performed using [employer] voice recognition software PHYSICAL EXAMINATION: GENERAL: Well-appearing, well-nourished and in no acute distress. HEAD: Atraumatic, normocephalic. EYES: Pupils equal round and reactive to light, extraocular movements intact, sclera anicteric, conjunctiva are normal. ENT: Nares patent, oropharynx clear without exudates. Moist mucous membranes. NECK: Normal range of motion, supple without lymphadenopathy LUNGS: Breath sounds clear to auscultation bilaterally and equal. No wheezes rales or rhonchi. Patient on nasal cannula HEART: Regular rate and rhythm without murmurs ABDOMEN: Soft, nontender, nondistended abdomen. No guarding, no rebound. No masses appreciated. Musculoskeletal: Normal range of motion, no pitting or edema. No cyanosis. NEUROLOGICAL: Cranial nerves grossly intact. Normal speech, normal gait. Normal sensory, motor exams patient does have spasms of her extremities PSYCH: Normal mood, normal affect. SKIN: Warm, Dry, normal turgor, no rashes or lesions noted. Physical Exam - Vital signs Vitals: Pulse Ox 88 L 09/06/17 05:14 Course - Re-evaluation Re-evalutation: 09/06/17 07:30 Patient's lab work notes no significant abnormality, Benadryl did not improve her symptoms we will try some Ativan 09/06/17 15:13 Patient's tremors have improved significantly, she did become hypotensive requiring some IV fluids, however after fluid hydration she felt much better. Patient's notes that these tremors have been going on for years I will have the patient follow-up with neurology for further evaluation of her tremors After performing a Medical Screening Examination, I estimate there is LOW risk for INTRACRANIAL HEMORRHAGE, ISCHEMIC CVA, MALIGNANT DYSRHYTHMIA, ACUTE CORONARY SYNDROME, MENINGITIS, PULMONARY EMBOLISM, or SEPSIS thus I consider the discharge disposition reasonable. I have reevaluated this patient multiple times and no significant life threatening changes are noted. The patient and I have discussed the diagnosis and risks, and we agree with discharging home with close follow-up with the understanding that symptoms and presentations can change. We also discussed returning to the Emergency Department immediately if new or worsening symptoms occur. We have discussed the symptoms which are most concerning (e.g., changing or worsening pain, weakness, vomiting, fever) that necessitate immediate return. - Vital Signs Vital signs: Temp Pulse Resp BP Pulse Ox 97.8 F 17 101/89 H 89 L 09/06/17 11:20 09/06/17 11:01 09/06/17 11:01 09/06/17 11:01 - Laboratory Result Diagrams: 09/06/17 06:00 09/06/17 06:00 Laboratory results interpreted by me: 09/06/17 06:00 Sodium 145.9 H Carbon Dioxide 35 H BUN 21 H Est GFR (Non-Af Amer) 49 L Creatine Kinase 200 H Discharge - Discharge Clinical Impression: Tremors of nervous system Condition: Stable Disposition: HOME, SELF-CARE Additional Instructions: At this time I do not have a cause of your tremors, please follow-up with neurology for further evaluation and care Return immediately if there are any other concerns Prescriptions: Lorazepam [Ativan 0.5 mg Tablet] 0.5 mg PO Q6 #14 tab Referrals: QIAN MCGEE, EDISONC [Primary Care Provider] - Follow up as needed JACKIE LARSON MD [NO LOCAL MD] - Follow up tomorrow
--- NOTE | 2017-09-06 07:36 | EKG REPORT ---
SEVERITY:- BORDERLINE ECG - SINUS RHYTHM BORDERLINE RIGHT AXIS DEVIATION BORDERLINE PROLONGED QT INTERVAL : Confirmed by: Gael Wilkins MD 06-Sep-2017 07:35:40
[2017-09-06] MEDS ORDERED: NORMAL SALINE 1000 ML 1,000 ML IV ONE (08:35)
[2017-09-06 11:22] VITALS: BP 101/89
== END 2017-09-06 11:21 | disposition home or self-care (01) ==
LOC: ER 05:08
DX: R25.1 Tremor, unspecified (principal); R25.2 Cramp and spasm; F17.210 Nicotine dependence, cigarettes, uncomplicated; I25.10 Atherosclerotic heart disease of native coronary artery without angina pectoris; I10 Essential (primary) hypertension; J44.9 Chronic obstructive pulmonary disease, unspecified; I25.2 Old myocardial infarction
CPT/HCPCS: 93005; 94640; 99285; 96361; 96374; 36415; 82550; 83735; 84443; 85025; 80053; 93010; J2060; J7030

== ENCOUNTER 2017-12-12 23:13 | Emergency (ER) | payer MEDICARE, MEDICAID ==
--- NOTE | 2017-12-12 23:48 | RADIOLOGY REPORT (SQ) ---
3 VIEWS OF THE LEFT WRIST HISTORY: Wrist injury. COMPARISON: None. FINDINGS/IMPRESSION: Nondisplaced fracture of the distal radial shaft. No dislocation is seen. Surrounding soft tissues are swollen. Osteopenia is present.
[2017-12-13] MEDS ORDERED: ACETAMINOPHEN 325 MG TABLET PO ONE (00:37)
--- NOTE | 2017-12-13 00:38 | ER Document Report ---
ED Extremity Problem, Upper - General Mode of Arrival: Ambulatory Information source: Patient TRAVEL OUTSIDE OF THE [place] IN LAST 30 DAYS: No <JERAMY LIRIANO - Last Filed: 12/13/17 01:06> <JASPREET CEJA - Last Filed: 12/13/17 05:10> - General Chief Complaint: Arm Injury Stated Complaint: FALL,ARM PAIN Time Seen by Provider: 12/13/17 00:30 Notes: Patient is a 52-year-old female presenting to the emergency department complaining of left wrist pain secondary to a mechanical trip and fall. Patient states that she was attempting to get out of bed when she fell with her hands outstretched and most of her weight landed on her left hand. She states she immediately felt pain. Patient denies any other injuries. Patient in on oxygen at home. (JERAMY LIRIANO) - Related Data Allergies/Adverse Reactions: zolpidem [From Ambien] Adverse Reaction (Verified 06/03/17 20:55) Past Medical History - General Information source: Patient - Social History Smoking Status: Unknown if Ever Smoked Family History: Reviewed & Not Pertinent - Past Medical History Cardiac Medical History: Reports: Hx Congestive Heart Failure, Hx Coronary Artery Disease, Hx Heart Attack, Hx Hypertension Pulmonary Medical History: Reports: Hx COPD, Hx Pneumonia, Hx Intubation, Hx Respiratory Failure Endocrine Medical History: Reports: Hx Diabetes Mellitus Type 2, Hx Hypothyroidism Musculoskeletal Medical History: Reports Hx Fibromyalgia Psychiatric Medical History: Reports: Hx Bipolar Disorder, Hx Depression Past Surgical History: Reports: Hx Appendectomy, Hx Cardiac Catheterization, Hx Cardiac Surgery, Hx Section - Immunizations Hx Diphtheria, Pertussis, Tetanus Vaccination: Yes Hx Pneumococcal Vaccination: 04/16/09 <JERAMY LIRIANO - Last Filed: 12/13/17 01:06> Review of Systems - Review of Systems Constitutional: No symptoms reported EENT: No symptoms reported Cardiovascular: No symptoms reported Respiratory: No symptoms reported Gastrointestinal: No symptoms reported Genitourinary: No symptoms reported Female Genitourinary: No symptoms reported Musculoskeletal: See HPI Skin: No symptoms reported Hematologic/Lymphatic: No symptoms reported Neurological/Psychological: No symptoms reported -: Yes All other systems reviewed and negative <JERAMY LIRIANO - Last Filed: 12/13/17 01:06> Physical Exam - General General appearance: Appears well, Alert In distress: None - HEENT Head: Normocephalic, Atraumatic Eyes: Normal Conjunctiva: Normal Extraocular movements intact: Yes Pupils: PERRL Mucous membranes: Normal Neck: Normal - Respiratory Respiratory status: No respiratory distress - Extremities General upper extremity: Normal ROM General lower extremity: Normal ROM Wrist: Tender - Tender to palpation to the left distal wrist. Pulses intact. Able to wiggle fingers. - Neurological Neuro grossly intact: Yes Cognition: Normal Orientation: AAOx4 [place] Coma Scale Eye Opening: Spontaneous [place] Coma Scale Verbal: Oriented [place] Coma Scale Motor: Obeys Commands [place] Coma Scale Total: 15 Speech: Normal - Psychological Associated symptoms: Normal affect, Normal mood - Skin Skin Temperature: Warm Skin Moisture: Dry <JERAMY LIRIANO - Last Filed: 12/13/17 01:06> - Vital signs Vitals: Temp Pulse Resp BP Pulse Ox 99.5 F 99 20 118/70 93 12/13/17 00:15 12/13/17 00:15 12/13/17 00:15 12/13/17 00:15 12/13/17 00:15 Course <JERAMY LIRIANO - Last Filed: 12/13/17 01:06> - Laboratory Result Diagrams: 12/13/17 01:35 12/13/17 01:35 - Diagnostic Test Radiology reviewed: Reports reviewed <JASPREET CEJA - Last Filed: 12/13/17 05:10> - Re-evaluation Re-evalutation: 12/13/17 05:09 Patient is a 62-year-old female who came in after a fall which she lost her balance and hurt her wrist. She is a distal radius fracture and splint has been applied. Family is concerned the patient may have a problem with her electrolytes. Electrolytes are within normal limits. Blood gas within normal limits. Urine and chest x-ray within normal limits. Patient has no complaints. Of note, she takes sedating medication at night which is likely why she is a little out of it when she came in. Able to ambulate. Stable for discharge. Follow-up with PMD this week and orthopedics as instructed. Please see procedure note for splint (JASPREET CEJA) - Vital Signs Vital signs: Temp Pulse Resp BP Pulse Ox 98.7 F 90 20 122/61 96 12/13/17 04:10 12/13/17 04:10 12/13/17 04:10 12/13/17 04:10 12/13/17 04:10 - Laboratory Laboratory results interpreted by me: 12/13/17 12/13/17 12/13/17 01:35 01:35 01:45 WBC 17.9 H RDW 15.0 H Seg Neutrophils % 81.8 H Lymphocytes % 9.2 L Absolute Neutrophils 14.6 H Absolute Monocytes 1.5 H VBG HCO3 Carbon Dioxide 31 H Est GFR (Non-Af Amer) 54 L Urine Urobilinogen 2.0 H 12/13/17 03:05 WBC RDW Seg Neutrophils % Lymphocytes % Absolute Neutrophils Absolute Monocytes VBG HCO3 32.3 H Carbon Dioxide Est GFR (Non-Af Amer) Urine Urobilinogen Procedures - Immobilization Left Distal Wrist Time completed: 12:50 Pre-Proc Neuro Vasc Exam: Normal Immobilizer type: Sugar tong Performed by: RN Post-Proc Neuro Vasc Exam: Normal Alignment checked and good: Yes <JERAMY LIRIANO - Last Filed: 12/13/17 01:06> Discharge <JEARMY LIRIANO - Last Filed: 12/13/17 01:06> <JASPREET CEJA - Last Filed: 12/13/17 05:10> - Discharge Clinical Impression: Wrist fracture, left Qualifiers: Encounter type: initial encounter Fracture type: closed Qualified Code(s): S62.102A - Fracture of unspecified carpal bone, left wrist, initial encounter for closed fracture Condition: Stable Disposition: HOME, SELF-CARE Instructions: Fractured Radius ([facility]), Temporary Splint ([facility]) Referrals: FLASH WHITE DO [ACTIVE STAFF] - Follow up in 3-5 days QIAN MCGEE FNP-C [Primary Care Provider] - Follow up in 3-5 days Scribe Attestation: 12/13/17 05:10 I personally performed the services described in the documentation, reviewed and edited the documentation which was dictated to the scribe in my presence, and it accurately records my words and actions. (JASPREET CEJA) Scribe Documentation - Scribe Written by Scribe:: Osmar Galloway, 12/13/2017 00:53 acting as scribe for :: Rodolfo <JERAMY LIRIANO - Last Filed: 12/13/17 01:06>
[2017-12-13 02:02] LABS: ABSOLUTE EOSINOPHILS # (AUTO) 0.1 10^3/uL (0.0-0.6); ABSOLUTE LYMPHOCYTES (AUTO) 1.7 10^3/uL (0.5-4.7); ABSOLUTE MONOCYTES (AUTO) 1.5 10^3/uL (0.1-1.4); ABSOLUTE NEUT (AUTO) 14.6 10^3/uL (1.7-8.2); BASOPHILS % (AUTO) 0.1 % (0-2); EOSINOPHILS % (AUTO) 0.7 % (0-6); HEMATOCRIT 36.5 % (36.0-47.0); HEMOGLOBIN 12.2 g/dL (12.0-15.5); LYMPHOCYTES % (AUTO) 9.2 % (13-45); MEAN CORPUSCULAR HEMOGLOBIN 29.9 pg (27.0-33.4); MEAN CORPUSCULAR HGB CONC 33.4 g/dL (32.0-36.0); MEAN CORPUSCULAR VOLUME 90 fl (80-97); MONOCYTES % (AUTO) 8.2 % (3-13); PLATELET COUNT 315 10^3/uL (150-450); RED BLOOD COUNT 4.07 10^6/uL (3.72-5.28); SEGMENTED NEUTROPHILS % (AUTO) 81.8 % (42-78); TOTAL CELLS COUNTED % (AUTO) 100 %; WHITE BLOOD COUNT 17.9 10^3/uL (4.0-10.5)
--- NOTE | 2017-12-13 02:14 | RADIOLOGY REPORT (SQ) ---
EXAM DESCRIPTION: XR CHEST 1 VIEW COMPLETED DATE/TME: 12/13/2017 01:29 CLINICAL HISTORY: 62 years Female, ams COMPARISON: 2.24.18 NUMBER OF VIEWS/TECHNIQUE: 1/AP FINDINGS: Increased lung volume, clear parenchyma, normal cardiac silhouette, and intact bony thorax. IMPRESSION: No acute cardiopulmonary findings.
[2017-12-13 02:16] LABS: ALANINE AMINOTRANSFERASE 22 U/L (9-52); ALBUMIN 3.9 g/dL (3.5-5.0); ALKALINE PHOSPHATASE 84 U/L (38-126); ANION GAP 12 (5-19); ASPARTATE AMINO TRANSFERASE 21 U/L (14-36); BILIRUBIN,DIRECT 0.3 mg/dL (0.0-0.4); BILIRUBIN,TOTAL 0.5 mg/dL (0.2-1.3); BLOOD UREA NITROGEN 17 mg/dL (7-20); CALCIUM 9.1 mg/dL (8.4-10.2); CARBON DIOXIDE 31 mmol/L (22-30); CHLORIDE 99 mmol/L (98-107); GLUCOSE 101 mg/dL (75-110); POTASSIUM 4.7 mmol/L (3.6-5.0); SODIUM 141.9 mmol/L (137-145)
[2017-12-13 02:20] LABS: APPEARANCE,URINE CLEAR; BILIRUBIN,URINE NEGATIVE (NEGATIVE); COLOR,URINE YELLOW; GLUCOSE, URINE NEGATIVE (NEGATIVE); KETONES,URINE NEGATIVE (NEGATIVE); LEUKOCYTE ESTERASE,URINE NEGATIVE (NEGATIVE); NITRITE,URINE NEGATIVE (NEGATIVE); PROTEIN,URINE NEGATIVE (NEGATIVE); URINE SPECIFIC GRAVITY 1.011
[2017-12-13 03:17] LABS: VENOUS BLOOD BASE EXCESS 5.4 mmol/L; VENOUS BLOOD HCO3 32.3 mmol/L (20-32); VENOUS BLOOD PCO2 57.6 mmHg (35-63); VENOUS BLOOD PH 7.37 (7.30-7.42)
[2017-12-13 04:49] VITALS: BP 122/61
== END 2017-12-13 04:20 | disposition home or self-care (01) ==
LOC: ER 23:13
DX: S62.102A Fracture of unspecified carpal bone, left wrist, initial encounter for closed fracture (principal); W01.0XXA Fall on same level from slipping, tripping and stumbling without subsequent striking against object, initial encounter; Y92.009 Unspecified place in unspecified non-institutional (private) residence as the place of occurrence of the external cause; Z99.81 Dependence on supplemental oxygen; I50.9 Heart failure, unspecified; I25.10 Atherosclerotic heart disease of native coronary artery without angina pectoris; I25.2 Old myocardial infarction; I11.0 Hypertensive heart disease with heart failure; E11.9 Type 2 diabetes mellitus without complications; E03.9 Hypothyroidism, unspecified
CPT/HCPCS: 99284; 36415; 83735; 85025; 80053; 81001; 82803; 71045; 73110; 29125; A9270

== ENCOUNTER 2018-01-19 09:30 | Inpatient (IN) | payer MEDICARE, MEDICAID ==
[2018-01-19] MEDS ORDERED: MAGNESIUM SULFATE/D5W 1 GM/100 ML RTUPB IV ONE (09:44)
[2018-01-19] MEDS ORDERED: IPRATROPIUM/ALBUTEROL 0.5-2.5 MG/3 ML AMPUL NEB ONE ×2 (09:45→19:33)
[2018-01-19] MEDS ORDERED: DOXYCYCLINE HYCLATE INJ 100 MG VIAL IV ONE (09:46)
--- NOTE | 2018-01-19 10:01 | RADIOLOGY REPORT (SQ) ---
EXAM DESCRIPTION: CHEST SINGLE VIEW COMPLETED DATE/TIME: 01/19/2018 9:49 am REASON FOR STUDY: bed 17 sepsis protocol COMPARISON: 12/13/2017 EXAM PARAMETERS: NUMBER OF VIEWS: One view. TECHNIQUE: Single frontal radiographic view of the chest acquired. RADIATION DOSE: NA LIMITATIONS: None. FINDINGS: LUNGS AND PLEURA: Increased reticular markings bilaterally, most pronounced of the right l ower lobe. Small bilateral pleural effusions. No pneumothorax. MEDIASTINUM AND HILAR STRUCTURES: Soft tissue prominence of the right peritracheal region and upper r ight hilum. HEART AND VASCULAR STRUCTURES: Heart normal in size. Normal vasculature. BONES: No acute findings. HARDWARE: None in the chest. OTHER: No other significant finding. IMPRESSION: 1. Reticular opacities bilaterally. Differential considerations include atypical infection, intersti tial pulmonary edema or pulmonary micro nodules. 2. Small bilateral pleural effusions. 3. Soft tissue prominence of the right hilum and right paratracheal region which may represent adenop athy. CT chest with intravenous contrast is recommended for further evaluation. TECHNICAL DOCUMENTATION: JOB ID: [id number] [employer]- All Rights Reserved Reading location - IP/workstation name: [email or web address]
[2018-01-19 10:03] LABS: VENOUS BLOOD BASE EXCESS 6.3 mmol/L; VENOUS BLOOD HCO3 35.4 mmol/L (20-32); VENOUS BLOOD PH 7.3 (7.30-7.42)
[2018-01-19] MEDS ORDERED: LORAZEPAM INJ 2 MG/1 ML VIAL IV ONE (10:18)
[2018-01-19 10:20] LABS: VENOUS BLOOD PCO2 73.4 mmHg (35-63)
[2018-01-19 10:20] LABS: INTERNATIONAL RATION (INR) 1.11; PARTIAL THROMBOPLASTIN TIME 30.8 SEC (23.5-35.8); PROTHROMBIN TIME 14.9 SEC (11.4-15.4)
[2018-01-19 10:24] LABS: HEMATOCRIT 37.4 % (36.0-47.0); HEMOGLOBIN 12.3 g/dL (12.0-15.5); MEAN CORPUSCULAR HEMOGLOBIN 29.1 pg (27.0-33.4); MEAN CORPUSCULAR HGB CONC 32.8 g/dL (32.0-36.0); MEAN CORPUSCULAR VOLUME 89 fl (80-97); PLATELET COUNT 459 10^3/uL (150-450); RED BLOOD COUNT 4.22 10^6/uL (3.72-5.28); RED CELL DISTRIBUTION WIDTH 15.8 % (11.5-14.0)
[2018-01-19 10:47] LABS: ABSOLUTE LYMPHOCYTES# (MANUAL) 1.9 10^3/uL (0.5-4.7); ABSOLUTE MONOCYTES # (MANUAL) 3.1 10^3/uL (0.1-1.4); ABSOLUTE NEUTROPHILS# (MANUAL) 33.4 10^3/uL (1.7-8.2); BASOPHILS % (MANUAL) 0 % (0-2); EOSINOPHILS % (MANUAL) 0 % (0-6); LYMPHOCYTES % (MANUAL) 5 % (13-45); MONOCYTES % (MANUAL) 8 % (3-13); SEGMENTED NEUTROPHILS % (MAN) 87 % (42-78); TOTAL CELLS COUNTED 100
[2018-01-19 10:48] LABS: POLYCHROMASIA SLIGHT; TOXIC GRANULATION SLIGHT; TOXIC VACUOLATION PRESENT
[2018-01-19 10:49] LABS: ANISOCYTOSIS SLIGHT; PLATELET COMMENT ADEQUATE; WHITE BLOOD COUNT 38.4 10^3/uL (4.0-10.5)
[2018-01-19 11:34] LABS: ALANINE AMINOTRANSFERASE 23 U/L (9-52); ALBUMIN 3.4 g/dL (3.5-5.0); ALKALINE PHOSPHATASE 200 U/L (38-126); ANION GAP 10 (5-19); ASPARTATE AMINO TRANSFERASE 18 U/L (14-36); BILIRUBIN,DIRECT 0.8 mg/dL (0.0-0.4); BILIRUBIN,TOTAL 0.9 mg/dL (0.2-1.3); BLOOD UREA NITROGEN 12 mg/dL (7-20); CALCIUM 9.2 mg/dL (8.4-10.2); CARBON DIOXIDE 32 mmol/L (22-30); CHLORIDE 93 mmol/L (98-107); GLUCOSE 150 mg/dL (75-110); POTASSIUM 3.7 mmol/L (3.6-5.0); SODIUM 134.5 mmol/L (137-145); TOTAL PROTEIN 6.8 g/dL (6.3-8.2)
--- NOTE | 2018-01-19 12:07 | ER Document Report ---
ED General - General Chief Complaint: Breathing Difficulty Stated Complaint: DIFFICULTY BREATHING Time Seen by Provider: 01/19/18 09:34 TRAVEL OUTSIDE OF THE [place] IN LAST 30 DAYS: No - HPI Patient complains to provider of: Shortness of breath difficulty breathing respiratory distress Notes: Patient has a history of COPD coming in for 5-day history of shortness of breath gradually getting worse patient states significantly worse earlier this morning therefore called EMS patient was found to be 80% SPO2 on 3 L nasal cannula. Patient was placed on nonrebreather breathing treatments were given IM Solu-Medrol was given patient was transferred to the ER for further evaluation denies any recent antibiotics denies any recent travel. Patient tachypneic tachycardic upon my evaluation using accessory muscles to breathe. Patient was placed on BiPAP. Patient states also a productive cough over the last few days no fevers no chills no night sweats no chest pain no abdominal pain - Related Data Allergies/Adverse Reactions: zolpidem [From Ambien] Adverse Reaction (Verified 06/03/17 20:55) Past Medical History - Social History Smoking Status: Current Every Day Smoker Chew tobacco use (# tins/day): No Drug Abuse: None Family History: Reviewed & Not Pertinent Patient has suicidal ideation: No Patient has homicidal ideation: No - Past Medical History Cardiac Medical History: Reports: Hx Congestive Heart Failure, Hx Coronary Artery Disease, Hx Heart Attack, Hx Hypertension Pulmonary Medical History: Reports: Hx COPD, Hx Pneumonia, Hx Intubation, Hx Respiratory Failure Denies: Hx Tuberculosis Neurological Medical History: Denies: Hx Seizures Endocrine Medical History: Reports: Hx Diabetes Mellitus Type 2, Hx Hypothyroidism Renal/ Medical History: Denies: Hx Peritoneal Dialysis Musculoskeletal Medical History: Reports Hx Fibromyalgia Psychiatric Medical History: Reports: Hx Bipolar Disorder, Hx Depression Past Surgical History: Reports: Hx Appendectomy, Hx Cardiac Catheterization, Hx Cardiac Surgery, Hx Section. Denies: Hx Pacemaker - Immunizations Hx Diphtheria, Pertussis, Tetanus Vaccination: Yes Hx Pneumococcal Vaccination: 04/16/09 Review of Systems - Review of Systems Constitutional: No symptoms reported EENT: No symptoms reported Cardiovascular: No symptoms reported Respiratory: No symptoms reported Gastrointestinal: No symptoms reported Genitourinary: No symptoms reported Female Genitourinary: No symptoms reported Musculoskeletal: No symptoms reported Skin: No symptoms reported Hematologic/Lymphatic: No symptoms reported Neurological/Psychological: No symptoms reported -: Yes All other systems reviewed and negative Physical Exam - Vital signs Vitals: Resp BP Pulse Ox 24 H 131/80 H 96 01/19/18 09:41 01/19/18 09:41 01/19/18 09:41 Interpretation: Tachycardic, Hypoxic, Tachypneic - General General appearance: Appears well, Alert - HEENT Head: Normocephalic, Atraumatic Eyes: Normal Pupils: PERRL - Respiratory Respiratory status: Respiratory distress Chest status: Nontender Breath sounds: Rhonchi, Wheezing - Chest the front door Chest palpation: Normal - Cardiovascular Rhythm: Regular Heart sounds: Normal auscultation Murmur: No - Abdominal Inspection: Normal Distension: No distension Bowel sounds: Normal Tenderness: Nontender Organomegaly: No organomegaly - Back Back: Normal, Nontender - Extremities General upper extremity: Normal inspection, Nontender, Normal color, Normal ROM , Normal temperature General lower extremity: Normal inspection, Nontender, Normal color, Normal ROM , Normal temperature, Normal weight bearing. No: Radha's sign - Neurological Neuro grossly intact: Yes Cognition: Normal Orientation: AAOx4 [place] Coma Scale Eye Opening: Spontaneous [place] Coma Scale Verbal: Oriented [place] Coma Scale Motor: Obeys Commands [place] Coma Scale Total: 15 Speech: Normal Motor strength normal: LUE, RUE, LLE, RLE Sensory: Normal - Psychological Associated symptoms: Normal affect, Normal mood - Skin Skin Temperature: Warm Skin Moisture: Dry Skin Color: Normal Course - Re-evaluation Re-evalutation: 01/19/18 14:35 Chest x-ray is concerning for atypical pneumonia. Patient upon her initial evaluation was given doxycycline for possible COPD exacerbation. Patient was placed on BiPAP and continued to improve her status. Laboratory values show hypercapnia no acidosis with leukocytosis. Heart rate improved with treatment measures. Patient's case was discussed with hospitalist will admit the patient for further evaluation. - Vital Signs Vital signs: Temp Pulse Resp BP Pulse Ox 97.3 F 119 H 20 125/67 95 01/19/18 13:20 01/19/18 13:20 01/19/18 13:20 01/19/18 13:20 01/19/18 12:00 - Laboratory Result Diagrams: 01/19/18 09:38 01/19/18 10:31 Laboratory results interpreted by me: 01/19/18 01/19/1801/19/18 09:38 09:53 09:58 WBC 38.4 H* RDW 15.8 H Plt Count 459 H Seg Neuts % (Manual) 87 H Lymphocytes % (Manual) 5 L Abs Neuts (Manual) 33.4 H Abs Monocytes (Manual) 3.1 H Carbonic Acid ABG pH ABG pCO2 ABG pO2 ABG HCO3 ABG Total CO2 ABG O2 Saturation VBG pCO2 73.4 H* VBG HCO3 35.4 H Sodium Chloride Carbon Dioxide Glucose POC Glucose 136 H Direct Bilirubin Alkaline Phosphatase NT-Pro-B Natriuret Pep Albumin 01/19/18 01/19/18 01/19/18 10:31 10:31 12:10 WBC RDW Plt Count Seg Neuts % (Manual) Lymphocytes % (Manual) Abs Neuts (Manual) Abs Monocytes (Manual) Carbonic Acid 1.93 H ABG pH 7.29 L ABG pCO2 64.1 H ABG pO2 66.7 L ABG HCO3 30.3 H ABG Total CO2 32.2 H ABG O2 Saturation 90.5 L VBG pCO2 VBG HCO3 Sodium 134.5 L Chloride 93 L Carbon Dioxide 32 H Glucose 150 H POC Glucose Direct Bilirubin 0.8 H Alkaline Phosphatase 200 H NT-Pro-B Natriuret Pep 2270 H Albumin 3.4 L Critical Care Note - Critical Care Note Total time excluding time spent on procedures (mins): 40 Comments: Multiple evaluations for patient with respiratory distress requiring BiPAP Discharge - Discharge Clinical Impression: COPD with acute exacerbation, Hypercapnia, Leukocytosis Acute respiratory failure Qualifiers: Respiratory failure complication: hypoxia and hypercapnia Qualified Code(s): J96.01 - Acute respiratory failure with hypoxia Pneumonia Qualifiers: Pneumonia type: due to unspecified organism Laterality: unspecified laterality Lung location: unspecified part of lung Qualified Code(s): J18.9 - Pneumonia, unspecified organism Condition: Stable Disposition: ADMITTED INPATIENT Admitting Provider: [facility] Hospitalist - [facility] Unit Admitted: Telemetry
[2018-01-19 13:13] LABS: ARTERIAL BLOOD BASE EXCESS 2.2 mmol/L; ARTERIAL BLOOD H2CO3 1.93 mmol/L (1.05-1.35); ARTERIAL BLOOD HCO3 30.3 mmol/L (20-24); ARTERIAL BLOOD O2 SATURATION 90.5 % (94-98); ARTERIAL BLOOD PCO2 64.1 mmHg (35-45); ARTERIAL BLOOD PH 7.29 (7.35-7.45); ARTERIAL BLOOD PO2 66.7 mmHg (80-100); ARTERIAL BLOOD TOTAL CO2 32.2 mmol/L (21-25)
[2018-01-19 13:14] LABS: ARTERIAL BLOOD FIO2 50%
[2018-01-19] MEDS ORDERED: DEXTROSE 40% GEL 15 GM TUBE PO PRN ×2 (13:30)
[2018-01-19] MEDS ORDERED: DEXTROSE 50%-WATER 25 GM/50 ML DISP.SYRIN IV PRN ×2 (13:30)
[2018-01-19] MEDS ORDERED: GLUCAGON,HUMAN RECOMB 1 MG INJ IM PRN (13:30)
--- NOTE | 2018-01-19 13:33 | PDOC H&P ---
History of Present Illness Admission Date/PCP: 01/19/18 12:22 EDISON MOLINAC Patient complains of: Shortness of breath History of Present Illness: PIEDAD GILES is a 62 year old female past medical history of COPD [on home O2 of 3 L, former heavy smoker, quit for 3 years, started smoking again for the last 2 weeks] multiple admission for COPD exacerbation and intubation, CAD status post 2 stent placed, hypertension, CHF [last echo 2013 no report available] ,RADHA presenting to ED complaining of worsening shortness of breath for a week associated with thick productive nonbloody yellow phlegm associated with fever chills nausea. Denies any recent history or any sick contacts. Has not received her flu shot or her Pneumovax. Patient denies any chest pain, vomiting, abdominal pain, diarrhea, constipation or any urinary symptoms. Past Medical History Cardiac Medical History: Reports: Congestive Heart Failure, Coronary Artery Disease, Myocardial Infarction, Hypertension Pulmonary Medical History: Reports: Chronic Obstructive Pulmonary Disease (COPD) , Intubation, Pneumonia, Respiratory Failure Denies: Tuberculosis Neurological Medical History: Denies: Seizures Endocrine Medical History: Reports: Diabetes Mellitus Type 2, Hypothyroidism Musculoskeltal Medical History: Reports: Fibromyalgia Psychiatric Medical History: Reports: Bipolar Disorder, Depression Past Surgical History Past Surgical History: Reports: Appendectomy, Cardiac Catheterization, Section Denies: Pacemaker Social History Smoking Status: Current Every Day Smoker Frequency of Alcohol Use: None Hx Recreational Drug Use: No Drugs: None Hx Prescription Drug Abuse: No Family History Family History: Reviewed & Not Pertinent Parental Family History Reviewed: Yes Children Family History Reviewed: Yes Sibling(s) Family History Reviewed.: Yes Medication/Allergy Allergies/Adverse Reactions: zolpidem [From Ambien] Adverse Reaction (Verified 06/03/17 20:55) Review of Systems Review of Systems: As per HPI Physical Exam Vital Signs: Temp Pulse Resp BP Pulse Ox 100 F 22 H 115/96 H 92 01/19/18 10:45 01/19/18 11:01 01/19/18 11:00 01/19/18 11:01 General appearance: PRESENT: no acute distress, cooperative, mild distress Head exam: PRESENT: atraumatic, normocephalic Eye exam: PRESENT: conjunctiva pink, EOMI, PERRLA. ABSENT: scleral icterus Neck exam: ABSENT: carotid bruit, JVD, lymphadenopathy, thyromegaly Respiratory exam: PRESENT: crackles, decreased breath sounds, prolonged expiratory phas. ABSENT: rales, rhonchi, wheezes Cardiovascular exam: PRESENT: RRR, tachycardia. ABSENT: diastolic murmur, rubs , systolic murmur Pulses: PRESENT: normal dorsalis pedis pul Vascular exam: PRESENT: normal capillary refill GI/Abdominal exam: PRESENT: normal bowel sounds, soft. ABSENT: distended, guarding, mass, organolmegaly, rebound, tenderness Extremities exam: PRESENT: full ROM. ABSENT: calf tenderness, clubbing, pedal edema Neurological exam: PRESENT: alert, awake, oriented to person, oriented to place , oriented to time, oriented to situation, CN II-XII grossly intact. ABSENT: motor sensory deficit Psychiatric exam: PRESENT: appropriate affect, normal mood. ABSENT: homicidal ideation, suicidal ideation Skin exam: PRESENT: dry, intact, warm. ABSENT: cyanosis, rash Results Impressions: Chest X-Ray 01/19/18 09:35 IMPRESSION: 1. Reticular opacities bilaterally. Differential considerations include atypical infection, interstitial pulmonary edema or pulmonary micro nodules. 2. Small bilateral pleural effusions. 3. Soft tissue prominence of the right hilum and right paratracheal region which may represent adenopathy. CT chest with intravenous contrast is recommended for further evaluation. Assessment & Plan - Diagnosis (1) Acute respiratory failure Qualifiers: Respiratory failure complication: hypoxia and hypercapnia Qualified Code(s) : J96.01 - Acute respiratory failure with hypoxia; J96.02 - Acute respiratory failure with hypercapnia; J96.02 - Acute respiratory failure with hypercapnia; J96.02 - Acute respiratory failure with hypercapnia Is this a current diagnosis for this admission?: Yes Plan: Secondary to COPD exacerbation/pneumonia. CTA to rule out PE. Nebs, steroids, BiPAP. ABG tomorrow. (2) Pneumonia Qualifiers: Pneumonia type: due to unspecified organism Laterality: unspecified laterality Lung location: unspecified part of lung Qualified Code(s): J18.9 - Pneumonia, unspecified organism Is this a current diagnosis for this admission?: Yes Plan: Community-acquired pneumonia. Sputum culture, blood culture, broad-spectrum antibiotics, rapid strep, influenza A/B, urine antigen for Legionella.. (3) COPD with acute exacerbation Is this a current diagnosis for this admission?: Yes Plan: Secondary to underlying pneumonia IV steroids, nebs, BiPAP. (4) Coronary artery disease Is this a current diagnosis for this admission?: Yes Plan: History of CAD status post 2 stent placement several years ago. Restart antiplatelets, statins, beta-blockers and ESTRELLA (5) SIRS (systemic inflammatory response syndrome) Is this a current diagnosis for this admission?: Yes Plan: Secondary to underlying pneumonia. Broad-spectrum antibiotics. Volume resuscitation guided by volume status. Monitor vitals, admit to IMCU, blood cultures, sputum culture.
[2018-01-19] MEDS ORDERED: ALBUTEROL SULFATE 0.083% NEB 2.5 MG/3 ML AMPUL NEB PRN ×2 (14:00→16:00)
[2018-01-19] MEDS: GABAPENTIN 300 MG CAPSULE PO SCH ×2 (15:23→22:12)
[2018-01-19] MEDS: NORMAL SALINE 1000 ML 1,000 ML IV PRN (15:47)
[2018-01-19] MEDS ORDERED: IPRATROPIUM BROMIDE 0.02% NEB 0.5 MG/2.5 ML AMPUL NEB SCH (16:00)
[2018-01-19] MEDS: IPRATROPIUM/ALBUTEROL 0.5-2.5 MG/3 ML AMPUL NEB SCH ×2 (16:08→19:46)
[2018-01-19 16:16] LABS: A TYPE INFLUENZA AG NEGATIVE (NEGATIVE); B INFLUENZA AG NEGATIVE (NEGATIVE)
[2018-01-19] MEDS ORDERED: VANCOMYCIN HCL 0 MG in DEXTROSE 5%-WATER 250 ML IV NR (16:30)
[2018-01-19 17:14] LABS: APPEARANCE,URINE CLEAR; BILIRUBIN,URINE NEGATIVE (NEGATIVE); COLOR,URINE YELLOW; GLUCOSE, URINE NEGATIVE (NEGATIVE); KETONES,URINE NEGATIVE (NEGATIVE); LEUKOCYTE ESTERASE,URINE NEGATIVE (NEGATIVE); NITRITE,URINE NEGATIVE (NEGATIVE); PROTEIN,URINE 30 mg/dL (NEGATIVE); URINE SPECIFIC GRAVITY 1.006
[2018-01-19] MEDS: PIPERACILLIN SODIUM/TAZOBACTAM 4.5 GM in NORMAL SALINE 100 ML IV SCH ×2 (18:06→23:09)
[2018-01-19] MEDS: BACLOFEN 10 MG TABLET PO SCH (18:11)
[2018-01-19] MEDS: LANSOPRAZOLE 30 MG TAB.RAP.DR PO SCH (18:11)
[2018-01-19] MEDS: AMLODIPINE BESYLATE 5 MG TABLET PO SCH (18:11)
[2018-01-19] MEDS: INSULIN LISPRO 100 UNIT/ML 3 ML VIAL SUBCUT PRN ×2 (18:29→22:11)
--- NOTE | 2018-01-19 19:19 | EKG REPORT ---
SEVERITY:- OTHERWISE NORMAL ECG - SINUS TACHYCARDIA BORDERLINE RIGHT AXIS DEVIATION : Confirmed by: Daniela Vasquez 19-Jan-2018 19:19:12
--- NOTE | 2018-01-19 20:21 | RADIOLOGY REPORT (SQ) ---
EXAM DESCRIPTION: CTA CHEST COMPLETED DATE/TIME: 01/19/2018 6:05 pm REASON FOR STUDY: Hypoxia shortness of breath, painful respiration, chest pain COMPARISON: AP chest 01/19/2018 TECHNIQUE: CT scan of the chest performed using helical scanning technique with dynamic intravenous contrast injection. Images reviewed with lung, soft tissue and bone windows. Reconstructed coronal and sagittal MPR images reviewed. Additional 3 dimensional post-processing performed to develop Maximal Intensity Projection images (MN P). All images stored on PACS. All CT scanners at this facility use dose modulation, iterative reconstruction, and/or weight based d osing when appropriate to reduce radiation dose to as low as reasonably achievable (ALARA). [facility]: Dose Right [facility]: CareDose [facility]: Dose Right [facility]: Teradose 4D [facility]: [place] CONTRAST TYPE AND DOSE: contrast/concentration: Isovue 350.00 mg/ml; Total Contrast Delivered: 67.0 ml; Total Saline Delivered: 72.0 ml Limited contrast bolus, patient scanned twice RENAL FUNCTION: Creatinine 0.75 RADIATION DOSE: CT Rad equipment meets quality standard of care and radiation dose reduction techniq ues were employed. CTDIvol: 3.3 - 16.5 mGy. DLP: 1124 mGy-cm. . LIMITATIONS: Limited contrast bolus, patient scanned twice FINDINGS: LUNGS AND PLEURA: Lungs are diffusely abnormal, with thickened interlobular septa and mult iple tiny alveolar nodules throughout both lungs. This could represent atypical pneumonia, pneumonit is, fungal infection. More chronic appearing bronchiectasis and volume loss is present in the medial aspect of the right up per lobe and medial aspect left upper lobe. No pleural effusions. No pneumothorax. AORTA AND GREAT VESSELS: No aneurysm. Contrast bolus not optimized for the aorta. HEART: No pericardial effusion. Moderate coronary artery calcifications. PULMONARY ARTERIES: No emboli visualized in the main pulmonary arteries or the segmental branches. HILAR AND MEDIASTINAL STRUCTURES: Diffuse mediastinal adenopathy is present, abnormal but nonspecific . HARDWARE: None in the chest. UPPER ABDOMEN: No significant findings. Limited exam. THYROID AND OTHER SOFT TISSUES: No masses. No adenopathy. BONES: No acute or significant finding. 3D MIPS: Confirm above findings. OTHER: No other significant finding. IMPRESSION: No gross CT angio evidence of thoracic aortic dissection or acute pulmonary emboli. Diffuse reticulonodular infiltrates throughout both lungs, new compared to previous chest films. Avni zavala are worrisome for atypical pneumonia, pneumonitis or fungal infection. Sarcoidosis could mimic this appearance COMMENT: Quality ID # [id number]: Final reports with documentation of one or more dose reduction techniques (e.g., Automated exposure control, adjustment of the mA and/or kV according to patient size, use of iterative reconstruction technique) TECHNICAL DOCUMENTATION: JOB ID: [id number] [employer]- All Rights Reserved Reading location - IP/workstation name: [email or web address]
[2018-01-19] MEDS: GUAIFENESIN 600 MG TABLET.SA PO SCH (22:12)
[2018-01-19] MEDS: METHYLPREDNISOLONE INJ 40 MG/1 ML SDV IV SCH (22:12)
[2018-01-20] MEDS: IPRATROPIUM/ALBUTEROL 0.5-2.5 MG/3 ML AMPUL NEB SCH ×4 (02:23→19:47)
[2018-01-20] MEDS: PIPERACILLIN SODIUM/TAZOBACTAM 4.5 GM in NORMAL SALINE 100 ML IV SCH ×2 (05:19→11:00)
[2018-01-20] MEDS: GABAPENTIN 300 MG CAPSULE PO SCH ×3 (05:20→21:19)
[2018-01-20] MEDS: LANSOPRAZOLE 30 MG TAB.RAP.DR PO SCH ×2 (05:20→17:19)
[2018-01-20] MEDS: NORMAL SALINE 1000 ML 1,000 ML IV PRN ×2 (06:33→13:11)
[2018-01-20 07:33] LABS: ARTERIAL BLOOD BASE EXCESS 5.5 mmol/L; ARTERIAL BLOOD H2CO3 2.19 mmol/L (1.05-1.35); ARTERIAL BLOOD HCO3 34.1 mmol/L (20-24); ARTERIAL BLOOD O2 SATURATION 90.1 % (94-98); ARTERIAL BLOOD PH 7.29 (7.35-7.45); ARTERIAL BLOOD PO2 66.5 mmHg (80-100); ARTERIAL BLOOD TOTAL CO2 36.3 mmol/L (21-25)
[2018-01-20 07:36] LABS: HEMATOCRIT 33.5 % (36.0-47.0); MEAN CORPUSCULAR HEMOGLOBIN 29.3 pg (27.0-33.4); MEAN CORPUSCULAR VOLUME 89 fl (80-97); PLATELET COUNT 397 10^3/uL (150-450); RED BLOOD COUNT 3.78 10^6/uL (3.72-5.28); RED CELL DISTRIBUTION WIDTH 15.5 % (11.5-14.0)
[2018-01-20 07:40] LABS: ARTERIAL BLOOD FIO2 6L; ARTERIAL BLOOD PCO2 72.7 mmHg (35-45)
[2018-01-20 07:51] LABS: ALANINE AMINOTRANSFERASE 21 U/L (9-52); ALKALINE PHOSPHATASE 140 U/L (38-126); ANION GAP 5 (5-19); ASPARTATE AMINO TRANSFERASE 15 U/L (14-36); BILIRUBIN,DIRECT 0.6 mg/dL (0.0-0.4); BILIRUBIN,TOTAL 0.6 mg/dL (0.2-1.3); BLOOD UREA NITROGEN 20 mg/dL (7-20); CARBON DIOXIDE 34 mmol/L (22-30); CHLORIDE 100 mmol/L (98-107); GLUCOSE 127 mg/dL (75-110); POTASSIUM 4.5 mmol/L (3.6-5.0); SODIUM 138.9 mmol/L (137-145); TOTAL PROTEIN 6.2 g/dL (6.3-8.2)
[2018-01-20 08:16] LABS: ABSOLUTE LYMPHOCYTES# (MANUAL) 1.2 10^3/uL (0.5-4.7); ABSOLUTE MONOCYTES # (MANUAL) 0.9 10^3/uL (0.1-1.4); ABSOLUTE NEUTROPHILS# (MANUAL) 28.8 10^3/uL (1.7-8.2); BAND NEUTROPHILS % (MANUAL) 1 % (3-5); BASOPHILS % (MANUAL) 0 % (0-2); EOSINOPHILS % (MANUAL) 0 % (0-6); LYMPHOCYTES % (MANUAL) 4 % (13-45); MONOCYTES % (MANUAL) 3 % (3-13); SEGMENTED NEUTROPHILS % (MAN) 92 % (42-78); TOTAL CELLS COUNTED 100
[2018-01-20 08:17] LABS: RBC MORPHOLOGY COMMENT NORMO-CYTIC/CHROMIC
[2018-01-20 08:18] LABS: PLATELET COMMENT ADEQUATE; POLYCHROMASIA SLIGHT
[2018-01-20] MEDS: TIOTROPIUM BROMIDE DPI 5 CAP/KIT (18 MCG/CAP) IH SCH (09:22)
[2018-01-20] MEDS: GUAIFENESIN 600 MG TABLET.SA PO SCH ×2 (09:23→21:19)
[2018-01-20] MEDS: METHYLPREDNISOLONE INJ 40 MG/1 ML SDV IV SCH ×2 (09:23→21:18)
[2018-01-20] MEDS: ACETAMINOPHEN 325 MG TABLET PO PRN (09:23)
[2018-01-20] MEDS: ENOXAPARIN SODIUM INJ 40 MG/0.4 ML DISP.SYRIN SUBCUT SCH (09:23)
[2018-01-20] MEDS: BACLOFEN 10 MG TABLET PO SCH ×2 (09:23→17:19)
[2018-01-20] MEDS: CLOPIDOGREL BISULFATE 75 MG TABLET PO SCH (09:23)
[2018-01-20] MEDS ORDERED: LORAZEPAM INJ 2 MG/1 ML VIAL IV PRN (09:47)
--- NOTE | 2018-01-20 10:24 | PDOC PROGRESS REPORT ---
Subjective Progress Note for:: 01/20/18 Subjective:: PIEDAD GILES is a 62 year old female past medical history of COPD [on home O2 of 3 L, former heavy smoker, quit for 3 years, started smoking again for the last 2 weeks] multiple admission for COPD exacerbation and intubation, CAD status post 2 stent placed, hypertension, CHF [last echo 2013 no report available] ,RADHA presenting to ED complaining of worsening shortness of breath for a week associated with thick productive nonbloody yellow phlegm associated with fever chills nausea. Denies any recent history or any sick contacts. Has not received her flu shot or her Pneumovax. Patient denies any chest pain, vomiting, abdominal pain, diarrhea, constipation or any urinary symptoms. 01/20/2018. No acute events overnight. On my encounter patient sitting on bed very pleasant and cooperative with physical examination. Could not tolerate BiPAP overnight however she did use it intermittently. Patient states she is very anxious and jittery and was not able to get a good night sleep due to anxiety. Patient is said that she is taking Ativan at home however we have been waiting for a list of her medication that her daughter supposed to bring. Patient was encouraged to ask her daughter to bring her list of medication. Meanwhile she patient is started on as needed Ativan. Patient denies any fever, chills, nausea, vomiting, abdominal pain, diarrhea, constipation, urinary symptoms or any chest pain or shortness of breath. Reason For Visit: ACUTE RESPIRATORY FAILURE,CHRONIC OBSTRUCTIVE Physical Exam Vital Signs: Temp Pulse Resp BP Pulse Ox 98.0 F 102 H 22 H 101/72 91 L 01/20/18 07:59 01/20/18 07:59 01/20/18 07:59 01/20/18 07:59 01/20/18 07:59 Intake & Output 01/19/18 01/20/18 01/21/18 06:59 06:59 06:59 Intake Total 1400 Output Total 400 Balance 1000 Weight 64.5 kg General appearance: PRESENT: no acute distress, well-developed, well-nourished Head exam: PRESENT: atraumatic, normocephalic Eye exam: PRESENT: conjunctiva pink, EOMI, PERRLA. ABSENT: scleral icterus Ear exam: PRESENT: normal external ear exam Mouth exam: PRESENT: moist, tongue midline Neck exam: ABSENT: carotid bruit, JVD, lymphadenopathy, thyromegaly Respiratory exam: PRESENT: clear to auscultation lopez, decreased breath sounds. ABSENT: rales, rhonchi, wheezes Cardiovascular exam: PRESENT: RRR. ABSENT: diastolic murmur, rubs, systolic murmur Pulses: PRESENT: normal dorsalis pedis pul Vascular exam: PRESENT: normal capillary refill GI/Abdominal exam: PRESENT: normal bowel sounds, soft. ABSENT: distended, guarding, mass, organolmegaly, rebound, tenderness Rectal exam: PRESENT: deferred Extremities exam: PRESENT: full ROM. ABSENT: calf tenderness, clubbing, pedal edema Neurological exam: PRESENT: alert, awake, oriented to person, oriented to place , oriented to time, oriented to situation, CN II-XII grossly intact. ABSENT: motor sensory deficit Psychiatric exam: PRESENT: anxious, appropriate affect, normal mood. ABSENT: homicidal ideation, suicidal ideation Skin exam: PRESENT: dry, intact, warm. ABSENT: cyanosis, rash Results Laboratory Results: 01/20/18 07:11 01/20/18 07:11 01/19/18 01/20/18 01/20/18 16:22 07:00 07:11 WBC 31.0 H* RBC 3.78 Hgb 11.0 L Hct 33.5 L MCV 89 MCH 29.3 MCHC 33.0 RDW 15.5 H Plt Count 397 Seg Neutrophils % Not Reportable Lymphocytes % Not Reportable Monocytes % Not Reportable Eosinophils % Not Reportable Basophils % Not Reportable Absolute Neutrophils Not Reportable Absolute Lymphocytes Not Reportable Absolute Monocytes Not Reportable Absolute Eosinophils Not Reportable Absolute Basophils Not Reportable Carbonic Acid 2.19 H HCO3/H2CO3 Ratio 15:1 ABG pH 7.29 L ABG pCO2 72.7 H* ABG pO2 66.5 L ABG HCO3 34.1 H ABG O2 Saturation 90.1 L ABG Base Excess 5.5 FiO2 6L Sodium Potassium Chloride Carbon Dioxide Anion Gap BUN Creatinine Est GFR ( Amer) Est GFR (Non-Af Amer) Glucose Calcium Magnesium Total Bilirubin AST ALT Alkaline Phosphatase Total Protein Albumin Urine Color YELLOW Urine Appearance CLEAR Urine pH 6.0 Ur Specific [place] 1.006 Urine Protein 30 H Urine Glucose (UA) NEGATIVE Urine Ketones NEGATIVE Urine Blood NEGATIVE Urine Nitrite NEGATIVE Ur Leukocyte Esterase NEGATIVE Urine WBC (Auto) 1 Urine RBC (Auto) 1 01/20/18 07:11 WBC RBC Hgb Hct MCV MCH MCHC RDW Plt Count Seg Neutrophils % Lymphocytes % Monocytes % Eosinophils % Basophils % Absolute Neutrophils Absolute Lymphocytes Absolute Monocytes Absolute Eosinophils Absolute Basophils Carbonic Acid HCO3/H2CO3 Ratio ABG pH ABG pCO2 ABG pO2 ABG HCO3 ABG O2 Saturation ABG Base Excess FiO2 Sodium 138.9 Potassium 4.5 Chloride 100 Carbon Dioxide 34 H Anion Gap 5 BUN 20 Creatinine 0.82 Est GFR ( Amer) > 60 Est GFR (Non-Af Amer) > 60 Glucose 127 H Calcium 9.0 Magnesium 2.1 Total Bilirubin 0.6 AST 15 ALT 21 Alkaline Phosphatase 140 H Total Protein 6.2 L Albumin 3.0 L Urine Color Urine Appearance Urine pH Ur Specific [place] Urine Protein Urine Glucose (UA) Urine Ketones Urine Blood Urine Nitrite Ur Leukocyte Esterase Urine WBC (Auto) Urine RBC (Auto) Impressions: Chest/Abdomen CTA 01/19/18 00:00 IMPRESSION: No gross CT angio evidence of thoracic aortic dissection or acute pulmonary emboli. Diffuse reticulonodular infiltrates throughout both lungs, new compared to previous chest films. Findings are worrisome for atypical pneumonia, pneumonitis or fungal infection. Sarcoidosis could mimic this appearance Chest X-Ray 01/19/18 09:35 IMPRESSION: 1. Reticular opacities bilaterally. Differential considerations include atypical infection, interstitial pulmonary edema or pulmonary micro nodules. 2. Small bilateral pleural effusions. 3. Soft tissue prominence of the right hilum and right paratracheal region which may represent adenopathy. CT chest with intravenous contrast is recommended for further evaluation. Assessment & Plan - Diagnosis (1) Acute respiratory failure Qualifiers: Respiratory failure complication: hypoxia and hypercapnia Qualified Code(s) : J96.01 - Acute respiratory failure with hypoxia; J96.02 - Acute respiratory failure with hypercapnia; J96.02 - Acute respiratory failure with hypercapnia; J96.02 - Acute respiratory failure with hypercapnia Is this a current diagnosis for this admission?: Yes Plan: Unchanged. Patient could not tolerate BiPAP overnight. Used it intermittently.. Secondary to COPD exacerbation/pneumonia. CTA it is for PE. Broad-spectrum antibiotics. Cultures negative. Nebs, steroids, BiPAP. ABG tomorrow. (2) Pneumonia Qualifiers: Pneumonia type: due to unspecified organism Laterality: unspecified laterality Lung location: unspecified part of lung Qualified Code(s): J18.9 - Pneumonia, unspecified organism Is this a current diagnosis for this admission?: Yes Plan: Community-acquired pneumonia. Sputum culture, blood culture negative. Continue broad-spectrum antibiotics. Rapid strep, influenza A/B negative. Urine antigen for Legionella pending. (3) COPD with acute exacerbation Is this a current diagnosis for this admission?: Yes Plan: Secondary to underlying pneumonia IV steroids, nebs, BiPAP. (4) Coronary artery disease Is this a current diagnosis for this admission?: Yes Plan: History of CAD status post 2 stent placement several years ago. Restart antiplatelets, statins, beta-blockers and ESTRELLA (5) SIRS (systemic inflammatory response syndrome) Is this a current diagnosis for this admission?: Yes Plan: Secondary to underlying pneumonia. Broad-spectrum antibiotics. Volume resuscitation guided by volume status. Monitor vitals, admit to IMCU, blood cultures, sputum culture. (6) CHF (congestive heart failure) Is this a current diagnosis for this admission?: Yes Plan: BNP elevated. Not exacerbated based on physical examination. No recent echo. Monitor volume status. Pending echo.
[2018-01-20] MEDS: INSULIN LISPRO 100 UNIT/ML 3 ML VIAL SUBCUT PRN ×2 (12:21→21:29)
[2018-01-20] MEDS ORDERED: NORMAL SALINE 500 ML IV ONE (13:00)
[2018-01-20] MEDS ORDERED: [UNRECOGNIZED DRUG - OTHER] SL SCH (16:00)
[2018-01-20] MEDS ORDERED: NALOXONE HCL SL SCH (16:00)
[2018-01-20] MEDS ORDERED: BUPRENORPHINE HCL SL SCH (16:00)
[2018-01-20] MEDS: TOLTERODINE TARTRATE 1 MG TABLET PO SCH (17:19)
[2018-01-20] MEDS: LEVOFLOXACIN 500 MG/D5W RTU 500 MG/100 ML RTUPB IV SCH (17:20)
[2018-01-20] MEDS: AMLODIPINE BESYLATE 5 MG TABLET PO SCH (17:23)
[2018-01-20] MEDS: LORAZEPAM INJ 2 MG/1 ML VIAL IV PRN ×2 (17:26→21:17)
[2018-01-20] MEDS ORDERED: (PENDING PHARMACY ID) (Tolterodine Tartrate [Detrol] 2 MG) PO SCH (18:00)
[2018-01-20] MEDS: DOXEPIN HCL 25 MG CAPSULE PO SCH (21:20)
[2018-01-20] MEDS ORDERED: (PENDING PHARMACY ID) (Doxepin Hcl [Doxepin Hcl] 100 MG) PO SCH (22:00)
[2018-01-21] MEDS: IPRATROPIUM/ALBUTEROL 0.5-2.5 MG/3 ML AMPUL NEB SCH ×4 (02:03→19:39)
[2018-01-21] MEDS: LORAZEPAM INJ 2 MG/1 ML VIAL IV PRN (02:09)
[2018-01-21] MEDS: NORMAL SALINE 1000 ML 1,000 ML IV PRN ×2 (02:53→15:30)
[2018-01-21] MEDS: GABAPENTIN 300 MG CAPSULE PO SCH ×3 (05:48→21:25)
[2018-01-21] MEDS: LEVOTHYROXINE SODIUM 0.05 MG TABLET PO SCH (05:48)
[2018-01-21] MEDS: LANSOPRAZOLE 30 MG TAB.RAP.DR PO SCH ×2 (05:48→17:10)
[2018-01-21 05:53] LABS: HEMATOCRIT 33.2 % (36.0-47.0); HEMOGLOBIN 10.9 g/dL (12.0-15.5); MEAN CORPUSCULAR HEMOGLOBIN 29.1 pg (27.0-33.4); MEAN CORPUSCULAR HGB CONC 32.7 g/dL (32.0-36.0); MEAN CORPUSCULAR VOLUME 89 fl (80-97); PLATELET COUNT 364 10^3/uL (150-450); RED BLOOD COUNT 3.72 10^6/uL (3.72-5.28); RED CELL DISTRIBUTION WIDTH 15.6 % (11.5-14.0)
[2018-01-21 06:28] LABS: ARTERIAL BLOOD H2CO3 1.69 mmol/L (1.05-1.35); ARTERIAL BLOOD HCO3 30.7 mmol/L (20-24); ARTERIAL BLOOD O2 SATURATION 90.9 % (94-98); ARTERIAL BLOOD PCO2 56.2 mmHg (35-45); ARTERIAL BLOOD PH 7.36 (7.35-7.45); ARTERIAL BLOOD PO2 63.4 mmHg (80-100); ARTERIAL BLOOD TOTAL CO2 32.4 mmol/L (21-25)
[2018-01-21 06:29] LABS: ARTERIAL BLOOD FIO2 30%
[2018-01-21 06:36] LABS: ABSOLUTE LYMPHOCYTES# (MANUAL) 1.3 10^3/uL (0.5-4.7); ABSOLUTE MONOCYTES # (MANUAL) 0.3 10^3/uL (0.1-1.4); ABSOLUTE NEUTROPHILS# (MANUAL) 31.2 10^3/uL (1.7-8.2); BASOPHILS % (MANUAL) 0 % (0-2); EOSINOPHILS % (MANUAL) 0 % (0-6); LYMPHOCYTES % (MANUAL) 2 % (13-45); MONOCYTES % (MANUAL) 1 % (3-13); SEGMENTED NEUTROPHILS % (MAN) 95 % (42-78); TOTAL CELLS COUNTED 100
[2018-01-21 06:38] LABS: POLYCHROMASIA SLIGHT; TOXIC GRANULATION 1+; TOXIC VACUOLATION PRESENT
[2018-01-21 06:39] LABS: OVALOCYTES SLIGHT; PLATELET COMMENT ADEQUATE; POIKILOCYTOSIS SLIGHT; TEAR DROP CELLS SLIGHT
[2018-01-21 06:41] LABS: WHITE BLOOD COUNT 32.8 10^3/uL (4.0-10.5)
[2018-01-21] MEDS ORDERED: [UNRECOGNIZED DRUG - OTHER] SL SCH (10:00)
[2018-01-21] MEDS ORDERED: (PENDING PHARMACY ID) (Citalopram Hydrobromide [Celexa 40 Mg Tablet] 40 MG) PO SCH (10:00)
[2018-01-21] MEDS ORDERED: NALOXONE HCL SL SCH (10:00)
[2018-01-21] MEDS ORDERED: BUPRENORPHINE HCL SL SCH (10:00)
[2018-01-21 10:11] LABS: ALANINE AMINOTRANSFERASE 22 U/L (9-52); ALBUMIN 2.7 g/dL (3.5-5.0); ALKALINE PHOSPHATASE 109 U/L (38-126); ANION GAP 6 (5-19); ASPARTATE AMINO TRANSFERASE 13 U/L (14-36); BILIRUBIN,DIRECT 0.4 mg/dL (0.0-0.4); BILIRUBIN,TOTAL 0.4 mg/dL (0.2-1.3); BLOOD UREA NITROGEN 30 mg/dL (7-20); CALCIUM 9.1 mg/dL (8.4-10.2); CARBON DIOXIDE 28 mmol/L (22-30); CHLORIDE 105 mmol/L (98-107); GLUCOSE 103 mg/dL (75-110); POTASSIUM 4.4 mmol/L (3.6-5.0); SODIUM 138.9 mmol/L (137-145); TOTAL PROTEIN 5.7 g/dL (6.3-8.2)
[2018-01-21] MEDS: BACLOFEN 10 MG TABLET PO SCH ×2 (10:15→17:09)
[2018-01-21] MEDS: METHYLPREDNISOLONE INJ 40 MG/1 ML SDV IV SCH ×2 (10:15→21:25)
[2018-01-21] MEDS: ACETAMINOPHEN 325 MG TABLET PO PRN (10:15)
[2018-01-21] MEDS: GUAIFENESIN 600 MG TABLET.SA PO SCH ×2 (10:16→21:25)
[2018-01-21] MEDS: TOLTERODINE TARTRATE 1 MG TABLET PO SCH ×2 (10:16→17:09)
[2018-01-21] MEDS: ARIPIPRAZOLE 5 MG TABLET PO SCH (10:16)
[2018-01-21] MEDS: CLOPIDOGREL BISULFATE 75 MG TABLET PO SCH (10:16)
[2018-01-21] MEDS: TIOTROPIUM BROMIDE DPI 5 CAP/KIT (18 MCG/CAP) IH SCH (10:17)
[2018-01-21] MEDS: CITALOPRAM HYDROBROMIDE 20 MG TABLET PO SCH (10:17)
[2018-01-21] MEDS: ENOXAPARIN SODIUM INJ 40 MG/0.4 ML DISP.SYRIN SUBCUT SCH (10:20)
--- NOTE | 2018-01-21 11:07 | PDOC PROGRESS REPORT ---
Subjective Progress Note for:: 01/21/18 Subjective:: PIEDAD GILES is a 62 year old female past medical history of COPD [on home O2 of 3 L, former heavy smoker, quit for 3 years, started smoking again for the last 2 weeks] multiple admission for COPD exacerbation and intubation, CAD status post 2 stent placed, hypertension, CHF [last echo 2013 no report available] ,RADHA presenting to ED complaining of worsening shortness of breath for a week associated with thick productive nonbloody yellow phlegm associated with fever chills nausea. Denies any recent history or any sick contacts. Has not received her flu shot or her Pneumovax. Patient denies any chest pain, vomiting, abdominal pain, diarrhea, constipation oranyurinary symptoms. 01/20/2018. No acute events overnight. On my encounter patient sitting on bed very pleasant and cooperative with physical examination. Could not tolerate BiPAP overnight however she did use it intermittently. Patient states she is very anxious and jittery and was not able to get a good night sleep due to anxiety. Patient said that she is taking Ativan at home however we have been waiting for a list of her medication that her daughter supposed to bring. Patient was encouraged to ask her daughter to bring her list of medication. Meanwhile she patient is started on as needed Ativan. Patient denies any fever, chills, nausea, vomiting, abdominal pain, diarrhea, constipation, urinary symptoms or any chest pain or shortness of breath. 01/21/2018. No acute events overnight. Patient has been tolerating her BiPAP. Yesterday she was little bit anxious and jittery and when I talked to her she stated that she takes Ativan at home for her anxiety. Patient was started on Ativan however pharmacy was able to call her pharmacy and get a list of her new medications and benzos or not noticed in the list of her medication. Seems like patient is not taking benzos at home after all. Patient has been sleepy but arousable since yesterday which could have been due to Ativan. Benzos DC' d. As the day progressed patient was more alert awake and oriented and cooperative with physical examination however patient is not very compliant with her BiPAP. I had to explain to her the need for BiPAP and the fact that she is hypoxic and retaining CO2. Patient agreed to continue using her BiPAP. Denies any fever, chills, nausea, vomiting, diarrhea Reason For Visit: ACUTE RESPIRATORY FAILURE,CHRONIC OBSTRUCTIVE Physical Exam Vital Signs: Temp Pulse Resp BP Pulse Ox 97.5 F 77 16 108/64 92 01/21/18 07:21 01/21/18 07:50 01/21/18 07:50 01/21/18 07:21 01/21/18 07:50 Intake & Output 01/20/18 01/21/18 01/22/18 06:59 06:59 06:59 Intake Total 1400 2450 Output Total 400 375 Balance 1000 2075 Weight 64.5 kg 66.7 kg Results Laboratory Results: 01/21/18 04:53 01/21/18 09:30 01/21/18 01/21/18 01/21/18 04:53 04:53 06:20 WBC 32.8 H* RBC 3.72 Hgb 10.9 L Hct 33.2 L MCV 89 MCH 29.1 MCHC 32.7 RDW 15.6 H Plt Count 364 Seg Neutrophils % Not Reportable Lymphocytes % Not Reportable Monocytes % Not Reportable Eosinophils % Not Reportable Basophils % Not Reportable Absolute Neutrophils Not Reportable Absolute Lymphocytes Not Reportable Absolute Monocytes Not Reportable Absolute Eosinophils Not Reportable Absolute Basophils Not Reportable Carbonic Acid 1.69 H HCO3/H2CO3 Ratio 18:1 ABG pH 7.36 ABG pCO2 56.2 H ABG pO2 63.4 L ABG HCO3 30.7 H ABG O2 Saturation 90.9 L ABG Base Excess 4.0 FiO2 30% Sodium Cancelled Potassium Cancelled Chloride Cancelled Carbon Dioxide Cancelled Anion Gap Cancelled BUN Cancelled Creatinine Cancelled Est GFR ( Amer) Cancelled Est GFR (Non-Af Amer) Cancelled Glucose Cancelled Calcium Cancelled Total Bilirubin Cancelled AST Cancelled ALT Cancelled Alkaline Phosphatase Cancelled Total Protein Cancelled Albumin Cancelled 01/21/18 09:30 WBC RBC Hgb Hct MCV MCH MCHC RDW Plt Count Seg Neutrophils % Lymphocytes % Monocytes % Eosinophils % Basophils % Absolute Neutrophils Absolute Lymphocytes Absolute Monocytes Absolute Eosinophils Absolute Basophils Carbonic Acid HCO3/H2CO3 Ratio ABG pH ABG pCO2 ABG pO2 ABG HCO3 ABG O2 Saturation ABG Base Excess FiO2 Sodium 138.9 Potassium 4.4 Chloride 105 Carbon Dioxide 28 Anion Gap 6 BUN 30 H Creatinine 0.83 Est GFR ( Amer) > 60 Est GFR (Non-Af Amer) > 60 Glucose 103 Calcium 9.1 Total Bilirubin 0.4 AST 13 L ALT 22 Alkaline Phosphatase 109 Total Protein 5.7 L Albumin 2.7 L 01/19/18 16:22 Clean Catch Midstream Urine Culture - Final Mixed Urogenital Hubert 01/19/18 15:31 Throat Throat Culture - Final NORMAL HUBERT Impressions: Chest/Abdomen CTA 01/19/18 00:00 IMPRESSION: No gross CT angio evidence of thoracic aortic dissection or acute pulmonary emboli. Diffuse reticulonodular infiltrates throughout both lungs, new compared to previous chest films. Findings are worrisome for atypical pneumonia, pneumonitis or fungal infection. Sarcoidosis could mimic this appearance Chest X-Ray 01/19/18 09:35 IMPRESSION: 1. Reticular opacities bilaterally. Differential considerations include atypical infection, interstitial pulmonary edema or pulmonary micro nodules. 2. Small bilateral pleural effusions. 3. Soft tissue prominence of the right hilum and right paratracheal region which may represent adenopathy. CT chest with intravenous contrast is recommended for further evaluation. Assessment & Plan - Diagnosis (1) Acute respiratory failure Qualifiers: Respiratory failure complication: hypoxia and hypercapnia Qualified Code(s) : J96.01 - Acute respiratory failure with hypoxia; J96.02 - Acute respiratory failure with hypercapnia; J96.02 - Acute respiratory failure with hypercapnia; J96.02 - Acute respiratory failure with hypercapnia Is this a current diagnosis for this admission?: Yes Plan: Secondary to COPD exacerbation/pneumonia. CO2 56 from 72 O2 remains unchanged. She has been tolerating her BiPAP. CTA it is for PE. Broad-spectrum antibiotics. Cultures negative. Nebs, steroids, BiPAP. ABG tomorrow. (2) Pneumonia Qualifiers: Pneumonia type: due to unspecified organism Laterality: unspecified laterality Lung location: unspecified part of lung Qualified Code(s): J18.9 - Pneumonia, unspecified organism Is this a current diagnosis for this admission?: Yes Plan: Community-acquired pneumonia. Likely Streptococcus pneumonia. Leukocytosis improving however still remains elevated which could be due to steroids that she is receiving for her COPD exacerbation. Cultures growing a mix of gram- negative rods and grams positive cocci is on the prelim report, likely contamination. Follow-up cultures. Zosyn switched with levofloxacin. Rapid strep, influenza A/B negative. Urine antigen for Legionella pending. (3) COPD with acute exacerbation Is this a current diagnosis for this admission?: Yes Plan: Secondary to underlying pneumonia IV steroids, nebs, BiPAP. (4) Coronary artery disease Is this a current diagnosis for this admission?: Yes Plan: History of CAD status post 2 stent placement several years ago. Restart antiplatelets, statins. On reviewing her home medication seems like she is not on ESTRELLA or beta blockers. Echo on 01/21/2018 read as left ejection fraction percent normal systolic function and grade 1/4 diastolic dysfunction. Outpatient cardiology follow-up. (5) SIRS (systemic inflammatory response syndrome) Is this a current diagnosis for this admission?: Yes Plan: Secondary to underlying pneumonia. Broad-spectrum antibiotics. Volume resuscitation guided by volume status. Monitor vitals, admit to IMCU, blood cultures, sputum culture. (6) CHF (congestive heart failure) Is this a current diagnosis for this admission?: Yes Plan: Diastolic dysfunction. Left ejection fraction is 60% on echo done on 2017. Not exacerbated based on physical examination. Monitor volume status. (7) Depression Is this a current diagnosis for this admission?: Yes Plan: Denies any suicidal or homicidal ideation. Restart home meds. (8) Hypothyroidism Is this a current diagnosis for this admission?: Yes Plan: Continue Synthroid. Recent TSH level. Will get a TSH level in case her Synthroid dosage needs to be adjusted. (9) Hypotension Is this a current diagnosis for this admission?: Yes Plan: Improving. Most likely due to benzo that he she was receiving yesterday. Jacek Lopez. Volume resuscitation guided by her volume status. Echo on 01/21/2018 shows HFpEF
--- NOTE | 2018-01-21 12:09 | XCELERA REPORT ---
[address] [address] Transthoracic Echocardiogram Report Name: PIEDAD GILES Age: 62 yrs Gender: Female : 1955 Patient Status: Inpatient Patient Location: [address] [place], [place] [address] Study Date: 01/21/2018 08:56 AM Height: 66 in Weight: 138 lb BSA: 1.7 m2 Procedure: A two-dimensional transthoracic echocardiogram with color flow and Doppler was performed. The study was technically difficult with many images being suboptimal in quality. Reason For Study: CAD, CHF, HTN History: CAD, CHF, HTN. Ordering Physician: DAMARIS OROSCO Performed By: Donal Echeverria Interpretation Summary The left ventricle is normal in size. There is normal left ventricular wall thickness. LV EF is 60% Left ventricular systolic function is normal. Doppler measurements suggest impaired left ventricular relaxation, which is associated with grade I/IV or mild diastolic dysfunction The left ventricular wall motion is normal. There is no thrombus. The right ventricle is grossly normal size. The right ventricle is not well visualized secondary to technical limitations The left atrial size is normal. There is no evidence of mitral valve prolapse. There is no mitral valve stenosis. There is no mitral regurgitation noted. There is no aortic valve stenosis There is no LVOT obstruction. No aortic regurgitation is present. There is no tricuspid stenosis. No tricuspid regurgitation. Unable to calculate RVSP due lack of TR jet. There is no pericardial effusion. MMode/2D Measurements & Calculations RVDd: 2.9 cm LVIDd: 3.4 cm FS: 43.2 % Ao root diam: 2.6 cm IVSd: 1.1 cm LVIDs: 1.9 cm EDV(Teich): 48.4 ml Ao root area: 5.1 cm2 LVPWd: 1.2 cm ESV(Teich): 11.9 ml LA dimension: 3.2 cm EF(Teich): 75.4 % LVOT diam: 1.6 cm LVOT area: 1.9 cm2 Doppler Measurements & Calculations MV E max lmaine: MV P1/2t max lamine: Ao V2 max: LV V1 max P.6 cm/sec 97.2 cm/sec 143.9 cm/sec 5.4 mmHg MV A max lamine: MV P1/2t: 79.2 msec Ao max PG: LV V1 max: 119.5 cm/sec MVA(P1/2t): 2.8 cm2 8.3 mmHg 115.7 cm/sec MV E/A: 0.80 MV dec slope: BARBIE(V,D): 1.5 cm2 359.2 cm/sec2 PA V2 max: MV P1/2t-pr_phl: 139.8 cm/sec 79.2 msec PA max P.8 mmHg Left Ventricle The left ventricle is normal in size. There is normal left ventricular wall thickness. LV EF is 60%. Left ventricular systolic function is normal. Doppler measurements suggest impaired left ventricular relaxation, which is associated with grade I/IV or mild diastolic dysfunction. The left ventricular wall motion is normal. There is no thrombus. Right Ventricle The right ventricle is grossly normal size. The right ventricle is not well visualized secondary to technical limitations. Atria The right atrium is normal. The left atrial size is normal. Mitral Valve There is no evidence of mitral valve prolapse. There is no mitral valve stenosis. There is no mitral regurgitation noted. Aortic Valve There is no aortic valvular vegetation. There is no aortic valve stenosis. There is no LVOT obstruction. No aortic regurgitation is present. Tricuspid Valve There is no tricuspid stenosis. No tricuspid regurgitation. Unable to calculate RVSP due lack of TR jet. Pulmonic Valve There is no pulmonic valvular stenosis. There is no pulmonic valvular regurgitation. Great Vessels The aortic root is not well visualized but is probably normal size. Effusions There is no pericardial effusion. : DAMARIS OROSCO > Eva Rowell
[2018-01-21] MEDS: LEVOFLOXACIN 500 MG/D5W RTU 500 MG/100 ML RTUPB IV SCH (18:06)
[2018-01-21] MEDS: INSULIN LISPRO 100 UNIT/ML 3 ML VIAL SUBCUT PRN (18:47)
[2018-01-21] MEDS ORDERED: LORAZEPAM INJ 2 MG/1 ML VIAL IV ONE (21:00)
[2018-01-21] MEDS: DOXEPIN HCL 25 MG CAPSULE PO SCH (21:25)
[2018-01-22] MEDS: IPRATROPIUM/ALBUTEROL 0.5-2.5 MG/3 ML AMPUL NEB SCH ×4 (02:10→20:44)
[2018-01-22] MEDS: NORMAL SALINE 1000 ML 1,000 ML IV PRN (05:23)
[2018-01-22] MEDS: GABAPENTIN 300 MG CAPSULE PO SCH ×3 (05:24→21:43)
[2018-01-22] MEDS: LEVOTHYROXINE SODIUM 0.05 MG TABLET PO SCH (05:24)
[2018-01-22] MEDS: LANSOPRAZOLE 30 MG TAB.RAP.DR PO SCH ×2 (05:25→17:05)
[2018-01-22 05:28] LABS: HEMATOCRIT 33.2 % (36.0-47.0); HEMOGLOBIN 10.8 g/dL (12.0-15.5); MEAN CORPUSCULAR HEMOGLOBIN 29.1 pg (27.0-33.4); MEAN CORPUSCULAR HGB CONC 32.7 g/dL (32.0-36.0); MEAN CORPUSCULAR VOLUME 89 fl (80-97); PLATELET COUNT 382 10^3/uL (150-450); RED BLOOD COUNT 3.72 10^6/uL (3.72-5.28); WHITE BLOOD COUNT 19.2 10^3/uL (4.0-10.5)
[2018-01-22 05:51] LABS: ABSOLUTE LYMPHOCYTES# (MANUAL) 0.8 10^3/uL (0.5-4.7); ABSOLUTE MONOCYTES # (MANUAL) 0.6 10^3/uL (0.1-1.4); ABSOLUTE NEUTROPHILS# (MANUAL) 17.9 10^3/uL (1.7-8.2); BASOPHILS % (MANUAL) 0 % (0-2); EOSINOPHILS % (MANUAL) 0 % (0-6); LYMPHOCYTES % (MANUAL) 4 % (13-45); MONOCYTES % (MANUAL) 3 % (3-13); SEGMENTED NEUTROPHILS % (MAN) 93 % (42-78); TOTAL CELLS COUNTED 100
[2018-01-22 05:52] LABS: ANISOCYTOSIS 1+; PLATELET COMMENT ADEQUATE; POLYCHROMASIA SLIGHT
[2018-01-22 05:53] LABS: ALANINE AMINOTRANSFERASE 21 U/L (9-52); ALBUMIN 2.8 g/dL (3.5-5.0); ALKALINE PHOSPHATASE 95 U/L (38-126); ASPARTATE AMINO TRANSFERASE 14 U/L (14-36); BILIRUBIN,DIRECT 0.4 mg/dL (0.0-0.4); BILIRUBIN,TOTAL 0.4 mg/dL (0.2-1.3); BLOOD UREA NITROGEN 28 mg/dL (7-20); GLUCOSE 129 mg/dL (75-110); POTASSIUM 4.7 mmol/L (3.6-5.0); TOTAL PROTEIN 5.7 g/dL (6.3-8.2)
[2018-01-22 05:59] LABS: ANION GAP 5 (5-19); CARBON DIOXIDE 31 mmol/L (22-30); CHLORIDE 102 mmol/L (98-107); SODIUM 138.4 mmol/L (137-145)
[2018-01-22 06:18] LABS: ARTERIAL BLOOD BASE EXCESS 3.7 mmol/L; ARTERIAL BLOOD H2CO3 1.48 mmol/L (1.05-1.35); ARTERIAL BLOOD HCO3 29.5 mmol/L (20-24); ARTERIAL BLOOD PCO2 49.2 mmHg (35-45)
[2018-01-22 06:22] LABS: ARTERIAL BLOOD FIO2 30%
[2018-01-22] MEDS: TIOTROPIUM BROMIDE DPI 5 CAP/KIT (18 MCG/CAP) IH SCH (10:24)
[2018-01-22] MEDS: METHYLPREDNISOLONE INJ 40 MG/1 ML SDV IV SCH ×2 (10:24→21:43)
[2018-01-22] MEDS: ARIPIPRAZOLE 5 MG TABLET PO SCH (10:25)
[2018-01-22] MEDS: CITALOPRAM HYDROBROMIDE 20 MG TABLET PO SCH (10:25)
[2018-01-22] MEDS: GUAIFENESIN 600 MG TABLET.SA PO SCH ×2 (10:25→21:43)
[2018-01-22] MEDS: CLOPIDOGREL BISULFATE 75 MG TABLET PO SCH (10:25)
[2018-01-22] MEDS: BACLOFEN 10 MG TABLET PO SCH ×2 (10:25→17:05)
[2018-01-22] MEDS: TOLTERODINE TARTRATE 1 MG TABLET PO SCH ×2 (10:25→17:05)
[2018-01-22] MEDS: ENOXAPARIN SODIUM INJ 40 MG/0.4 ML DISP.SYRIN SUBCUT SCH (10:26)
--- NOTE | 2018-01-22 13:52 | PDOC PROGRESS REPORT ---
Subjective Progress Note for:: 01/22/18 Subjective:: Assumed care today. Ms. Leahy is a 60-year-old female with a past medical history of COPD on home O2 of 3 L, former heavy smoker, quit for 3 years, started smoking again for the last 2 weeks] multiple admission for COPD exacerbation with prior intubation, CAD status post 2 stent placed, hypertension , and CHF with preserved EF who initially presented with progressive shortness of breath and productive cough with fever. Patient was admitted for management of COPD exacerbation. She was severely hypercapnic upon presentation and was placed on BiPAP. No acute event overnight. Patient appears jittery this morning. She says she is still feels slightly short of breath. She is currently saturating well at 4 L of nasal cannula. She is on 2-3 L of oxygen at home. Ativan was d/laurence the other day due to severe hypercapnia and hypotension. It was also confirmed that patient is not on benzos at home. Reason For Visit: HYPOXIC RESPIRATORY FAILURE,PNEUMONIA,COPD,SIRS Physical Exam Vital Signs: Temp Pulse Resp BP Pulse Ox 97.4 F 64 16 122/77 95 01/22/18 07:17 01/22/18 07:55 01/22/18 07:55 01/22/18 07:17 01/22/18 07:55 Intake & Output 01/21/18 01/22/18 01/23/18 06:59 06:59 06:59 Intake Total 2450 2740 354 Output Total 375 100 Balance 2075 2640 354 Weight 147 lb 0.773 oz 145 lb 11.609 oz General appearance: PRESENT: no acute distress, well-developed, well-nourished Head exam: PRESENT: atraumatic, normocephalic Eye exam: PRESENT: conjunctiva pink, EOMI, PERRLA. ABSENT: scleral icterus Ear exam: PRESENT: normal external ear exam Mouth exam: PRESENT: moist, tongue midline Neck exam: ABSENT: carotid bruit, JVD, lymphadenopathy, thyromegaly Respiratory exam: PRESENT: clear to auscultation lopez, rhonchi, wheezes. ABSENT : rales GI/Abdominal exam: PRESENT: normal bowel sounds, soft. ABSENT: distended, guarding, mass, organolmegaly, rebound, tenderness Rectal exam: PRESENT: deferred Neurological exam: PRESENT: alert, awake, oriented to person, oriented to place , oriented to time, oriented to situation, CN II-XII grossly intact. ABSENT: motor sensory deficit Results Laboratory Results: 01/22/18 04:44 01/22/18 04:44 01/22/18 01/22/18 01/22/18 04:44 04:44 04:44 WBC 19.2 H RBC 3.72 Hgb 10.8 L Hct 33.2 L MCV 89 MCH 29.1 MCHC 32.7 RDW 16.0 H Plt Count 382 Seg Neutrophils % Not Reportable Lymphocytes % Not Reportable Monocytes % Not Reportable Eosinophils % Not Reportable Basophils % Not Reportable Absolute Neutrophils Not Reportable Absolute Lymphocytes Not Reportable Absolute Monocytes Not Reportable Absolute Eosinophils Not Reportable Absolute Basophils Not Reportable Carbonic Acid HCO3/H2CO3 Ratio ABG pH ABG pCO2 ABG pO2 ABG HCO3 ABG O2 Saturation ABG Base Excess FiO2 Sodium 138.4 Potassium 4.7 Chloride 102 Carbon Dioxide 31 H Anion Gap 5 BUN 28 H Creatinine 0.81 Est GFR ( Amer) > 60 Est GFR (Non-Af Amer) > 60 Glucose 129 H Calcium 9.0 Total Bilirubin 0.4 AST 14 ALT 21 Alkaline Phosphatase 95 Total Protein 5.7 L Albumin 2.8 L TSH 0.33 L 01/22/18 05:40 WBC RBC Hgb Hct MCV MCH MCHC RDW Plt Count Seg Neutrophils % Lymphocytes % Monocytes % Eosinophils % Basophils % Absolute Neutrophils Absolute Lymphocytes Absolute Monocytes Absolute Eosinophils Absolute Basophils Carbonic Acid 1.48 H HCO3/H2CO3 Ratio 19:1 ABG pH 7.40 ABG pCO2 49.2 H ABG pO2 76.0 L ABG HCO3 29.5 H ABG O2 Saturation 95.0 ABG Base Excess 3.7 FiO2 30% Sodium Potassium Chloride Carbon Dioxide Anion Gap BUN Creatinine Est GFR ( Amer) Est GFR (Non-Af Amer) Glucose Calcium Total Bilirubin AST ALT Alkaline Phosphatase Total Protein Albumin TSH Impressions: Chest/Abdomen CTA 01/19/18 00:00 IMPRESSION: No gross CT angio evidence of thoracic aortic dissection or acute pulmonary emboli. Diffuse reticulonodular infiltrates throughout both lungs, new compared to previous chest films. Findings are worrisome for atypical pneumonia, pneumonitis or fungal infection. Sarcoidosis could mimic this appearance Chest X-Ray 01/19/18 09:35 IMPRESSION: 1. Reticular opacities bilaterally. Differential considerations include atypical infection, interstitial pulmonary edema or pulmonary micro nodules. 2. Small bilateral pleural effusions. 3. Soft tissue prominence of the right hilum and right paratracheal region which may represent adenopathy. CT chest with intravenous contrast is recommended for further evaluation. Assessment & Plan - Diagnosis (1) Acute and chronic respiratory failure with hypercapnia Is this a current diagnosis for this admission?: Yes Plan: Secondary to COPD exacerbation. PCO2 has been trending down. Patient is currently saturating well on 4 L of nasal cannula. (2) COPD with acute exacerbation Is this a current diagnosis for this admission?: Yes Plan: Continue Solu-Medrol at 40 mg IV every 12 for now. Will switch IV levofloxacin to p.o. Continue breathing treatments. (3) Pneumonia Qualifiers: Pneumonia type: due to unspecified organism Laterality: unspecified laterality Lung location: unspecified part of lung Qualified Code(s): J18.9 - Pneumonia, unspecified organism Is this a current diagnosis for this admission?: Yes Plan: Switch IV levofloxacin to p.o. Will add Mucomyst today. She did the chest showed bronchiectatic changes in the right upper and left upper lobes. Will consult pulmonology for further recommendations. (4) CHF (congestive heart failure) Is this a current diagnosis for this admission?: Yes Plan: Patient has diastolic dysfunction and an EF of 60%. Currently not in acute exacerbation. (5) Coronary artery disease Is this a current diagnosis for this admission?: Yes Plan: Stable. Continue Plavix. (6) Bipolar disorder Is this a current diagnosis for this admission?: Yes Plan: Stable. Continue Abilify and Celexa. - Time Time Spent with patient: 25-34 minutes
[2018-01-22] MEDS: ACETYLCYSTEINE 10% NEB 400 MG/4 ML VIAL NEB SCH ×2 (15:17→20:44)
[2018-01-22] MEDS: ACETAMINOPHEN 325 MG TABLET PO PRN (17:05)
[2018-01-22] MEDS ORDERED: ALPRAZOLAM 0.25 MG TABLET PO ONE (19:00)
[2018-01-22] MEDS: DOXEPIN HCL 25 MG CAPSULE PO SCH (21:43)
[2018-01-23] MEDS: ACETYLCYSTEINE 10% NEB 400 MG/4 ML VIAL NEB SCH ×3 (01:50→13:40)
[2018-01-23] MEDS: IPRATROPIUM/ALBUTEROL 0.5-2.5 MG/3 ML AMPUL NEB SCH ×3 (01:50→13:39)
[2018-01-23] MEDS: GABAPENTIN 300 MG CAPSULE PO SCH (05:40)
[2018-01-23] MEDS: LANSOPRAZOLE 30 MG TAB.RAP.DR PO SCH (05:41)
[2018-01-23] MEDS: LEVOTHYROXINE SODIUM 0.05 MG TABLET PO SCH (05:41)
[2018-01-23] MEDS: INSULIN LISPRO 100 UNIT/ML 3 ML VIAL SUBCUT PRN (07:25)
[2018-01-23] MEDS: NORMAL SALINE 1000 ML 1,000 ML IV PRN (07:25)
[2018-01-23 09:32] LABS: HEMATOCRIT 35.4 % (36.0-47.0); HEMOGLOBIN 11.7 g/dL (12.0-15.5); MEAN CORPUSCULAR HEMOGLOBIN 29.2 pg (27.0-33.4); MEAN CORPUSCULAR HGB CONC 33.1 g/dL (32.0-36.0); MEAN CORPUSCULAR VOLUME 88 fl (80-97); PLATELET COUNT 395 10^3/uL (150-450); RED BLOOD COUNT 4.02 10^6/uL (3.72-5.28); RED CELL DISTRIBUTION WIDTH 15.4 % (11.5-14.0); WHITE BLOOD COUNT 15.1 10^3/uL (4.0-10.5)
[2018-01-23 09:44] LABS: ANION GAP 8 (5-19); BLOOD UREA NITROGEN 18 mg/dL (7-20); CALCIUM 9.2 mg/dL (8.4-10.2); CARBON DIOXIDE 34 mmol/L (22-30); CHLORIDE 97 mmol/L (98-107); GLUCOSE 80 mg/dL (75-110); POTASSIUM 4.4 mmol/L (3.6-5.0); SODIUM 138.6 mmol/L (137-145)
[2018-01-23] MEDS ORDERED: LEVOFLOXACIN 750 MG TABLET PO SCH (10:00)
[2018-01-23 10:06] LABS: ABSOLUTE MONOCYTES # (MANUAL) 0.9 10^3/uL (0.1-1.4); ABSOLUTE NEUTROPHILS# (MANUAL) 12.2 10^3/uL (1.7-8.2); BAND NEUTROPHILS % (MANUAL) 2 % (3-5); BASOPHILS % (MANUAL) 0 % (0-2); EOSINOPHILS % (MANUAL) 0 % (0-6); LYMPHOCYTES % (MANUAL) 12 % (13-45); METAMYELOCYTES % (MANUAL) 1 % (0); MONOCYTES % (MANUAL) 6 % (3-13); SEGMENTED NEUTROPHILS % (MAN) 78 % (42-78); TOTAL CELLS COUNTED 100
[2018-01-23 10:07] LABS: ANISOCYTOSIS SLIGHT; HYPOCHROMASIA SLIGHT; PLATELET COMMENT ADEQUATE; POLYCHROMASIA 1+; TOXIC GRANULATION 1+; TOXIC VACUOLATION PRESENT
[2018-01-23 10:14] LABS: FREE T3 1.36 pg/mL (2.77-5.27); FREE T4 (FREE THYROXINE) 1.01 ng/dL (0.78-2.19)
[2018-01-23] MEDS: TOLTERODINE TARTRATE 1 MG TABLET PO SCH (10:19)
[2018-01-23] MEDS: BACLOFEN 10 MG TABLET PO SCH (10:19)
[2018-01-23] MEDS: CITALOPRAM HYDROBROMIDE 20 MG TABLET PO SCH (10:19)
[2018-01-23] MEDS: ARIPIPRAZOLE 5 MG TABLET PO SCH (10:19)
[2018-01-23] MEDS: CLOPIDOGREL BISULFATE 75 MG TABLET PO SCH (10:20)
[2018-01-23] MEDS: METHYLPREDNISOLONE INJ 40 MG/1 ML SDV IV SCH (10:20)
[2018-01-23] MEDS: ENOXAPARIN SODIUM INJ 40 MG/0.4 ML DISP.SYRIN SUBCUT SCH (10:20)
[2018-01-23] MEDS: TIOTROPIUM BROMIDE DPI 5 CAP/KIT (18 MCG/CAP) IH SCH (10:20)
[2018-01-23] MEDS: GUAIFENESIN 600 MG TABLET.SA PO SCH (10:20)
[2018-01-23] MEDS ORDERED: NYSTATIN 500000 UNIT/5 ML UDCUP PO SCH (12:00)
[2018-01-23 13:25] VITALS: BP 142/94
--- NOTE | 2018-01-23 15:39 | PDOC DISCHARGE SUMMARY ---
General - Admit/Disc Date/PCP Admission Date/Primary Care Provider: 01/19/18 12:22 OCTAVIO MOLINA Discharge Date: 01/23/18 - Discharge Diagnosis (1) Acute and chronic respiratory failure with hypercapnia Is this a current diagnosis for this admission?: Yes (2) COPD with acute exacerbation Is this a current diagnosis for this admission?: Yes (3) Pneumonia Is this a current diagnosis for this admission?: Yes (4) CHF (congestive heart failure) Is this a current diagnosis for this admission?: Yes (5) Coronary artery disease Is this a current diagnosis for this admission?: Yes (6) Bipolar disorder Is this a current diagnosis for this admission?: Yes - Additional Information Prescriptions: Fluticasone/Salmeterol [Fluticasone-Salmeterol 113-14] 1 each IH Q12 #1 aer.pow.ba Levofloxacin [Levaquin 750 mg Tablet] 750 mg PO DAILY #5 tablet Levothyroxine Sodium [Synthroid 0.05 mg Tablet] 0.025 mg PO Q6AM #30 tablet Nystatin [Mycostatin 500,000 Unit/5 ml Susp Udcup] 100,000 unit PO Q6 #2 udc Prednisone 20 mg PO BID #10 tablet Tiotropium [place] [Spiriva Handihaler 5 Cap/Kit (18 Mcg/Cap)] 1 cap IH DAILY # 2 kit Home Medications: Aripiprazole [Abilify 5 mg Tablet] 5 mg PO DAILY 01/20/18 Baclofen [Baclofen 10 mg Tablet] 10 mg PO BID 01/20/18 Buprenorphine HCl/Naloxone HCl [Suboxone 8 mg-2 mg Sl Film] 2 tab SL DAILY 01/20 Citalopram Hydrobromide [Celexa 40 mg Tablet] 40 mg PO DAILY 01/20/18 Clopidogrel Bisulfate [Plavix 75 mg Tablet] 75 mg PO DAILY 01/20/18 Doxepin HCl 100 mg PO QHS 01/20/18 Gabapentin [Neurontin 300 mg Capsule] 600 mg PO Q8 01/20/18 Hydroxyzine Pamoate [Vistaril 25 mg Capsule] 25 mg PO Q8 01/20/18 Promethazine HCl [Phenergan 25 mg Tablet] 25 mg PO Q6HP PRN 01/20/18 Tolterodine Tartrate [Detrol] 2 mg PO BID 01/20/18 Clopidogrel Bisulfate [Plavix 75 mg Tablet] 75 mg PO DAILY tablet 01/23/18 Fluticasone/Salmeterol [Fluticasone-Salmeterol 113-14] 1 each IH Q12 #1 aer.pow.ba 01/23/18 Levofloxacin [Levaquin 750 mg Tablet] 750 mg PO DAILY #5 tablet 01/23/18 Levothyroxine Sodium [Synthroid 0.05 mg Tablet] 0.025 mg PO Q6AM #30 tablet 01/31 Nystatin [Mycostatin 500,000 Unit/5 ml Susp Udcup] 100,000 unit PO Q6 #2 udc 01/31 Prednisone 20 mg PO BID #10 tablet 01/23/18 Tiotropium [place] [Spiriva Handihaler 5 Cap/Kit (18 Mcg/Cap)] 1 cap IH DAILY # 2 kit 01/23/18 History of Present Illness History of Present Illness: PIEDAD GILES is a 62 year old female past medical history of COPD [on home O2 of 3 L, former heavy smoker, quit for 3 years, started smoking again for the last 2 weeks] multiple admission for COPD exacerbation and intubation, CAD status post 2 stent placed, hypertension, CHF [last echo 2013 no report available] ,RADHA presenting to ED complaining of worsening shortness of breath for a week associated with thick productive nonbloody yellow phlegm associated with fever chills nausea. Denies any recent history or any sick contacts. Has not received her flu shot or her Pneumovax. Hospital Course Hospital Course: Ms. Giles is a 60-year-old female with a past medical history of COPD on home O2 of 3 L, former heavy smoker, quit for 3 years, started smoking again for the last 2 weeks], history of multiple admission for COPD exacerbation with prior intubation, CAD status post 2 stent placed, hypertension, and CHF with preserved EF who initially presented with progressive shortness of breath and productive cough with fever. Patient was admitted for management of COPD exacerbation. She was severely hypercapnic upon presentation and was placed on BiPAP. She was started on IV steroids and broad spectrum antibiotics initially. She did significantly improve and was eventually weaned back to her home O2 requirement. She will be discharge on 5 more days of Levaquin, prednisone PO. She will also be started on a Advair and continued on Spiriva. She will follow up with Dr. Bernal on outpatient basis. Patient did develop thrush likely steroid-induced and will also be discharged on nystatin. Physical Exam Vital Signs: Temp Pulse Resp BP Pulse Ox 98.8 F 92 18 134/65 H 95 01/23/18 08:13 01/23/18 08:13 01/23/18 08:13 01/23/18 08:13 01/23/18 08:13 Intake & Output 01/22/18 01/23/18 01/24/18 06:59 06:59 06:59 Intake Total 2740 2231 Output Total 100 900 Balance 2640 1331 Weight 145 lb 11.609 oz 150 lb 12.739 oz General appearance: PRESENT: no acute distress Head exam: PRESENT: atraumatic, normocephalic Eye exam: PRESENT: conjunctiva pink, EOMI, PERRLA. ABSENT: scleral icterus Ear exam: PRESENT: normal external ear exam Mouth exam: PRESENT: moist, tongue midline Neck exam: ABSENT: carotid bruit, JVD, lymphadenopathy, thyromegaly Respiratory exam: PRESENT: clear to auscultation lopez, rhonchi - occasional rhonchi. ABSENT: rales, wheezes Cardiovascular exam: PRESENT: RRR. ABSENT: diastolic murmur, rubs, systolic murmur Pulses: PRESENT: normal dorsalis pedis pul GI/Abdominal exam: PRESENT: normal bowel sounds, soft. ABSENT: distended, guarding, mass, organolmegaly, rebound, tenderness Rectal exam: PRESENT: deferred Extremities exam: PRESENT: full ROM. ABSENT: calf tenderness, clubbing, pedal edema Neurological exam: PRESENT: alert, awake, oriented to person, oriented to place , oriented to time, oriented to situation, CN II-XII grossly intact. ABSENT: motor sensory deficit Results Laboratory Results: 01/23/18 09:00 01/23/18 09:00 01/23/18 01/23/18 01/23/18 09:00 09:00 09:00 WBC 15.1 H RBC 4.02 Hgb 11.7 L Hct 35.4 L MCV 88 MCH 29.2 MCHC 33.1 RDW 15.4 H Plt Count 395 Seg Neutrophils % Not Reportable Lymphocytes % Not Reportable Monocytes % Not Reportable Eosinophils % Not Reportable Basophils % Not Reportable Absolute Neutrophils Not Reportable Absolute Lymphocytes Not Reportable Absolute Monocytes Not Reportable Absolute Eosinophils Not Reportable Absolute Basophils Not Reportable Sodium 138.6 Potassium 4.4 Chloride 97 L Carbon Dioxide 34 H Anion Gap 8 BUN 18 Creatinine 0.82 Est GFR ( Amer) > 60 Est GFR (Non-Af Amer) > 60 Glucose 80 Calcium 9.2 Free T4 1.01 Free T3 pg/mL 1.36 L 01/19/18 16:22 Clean Catch Midstream Legionella Urinary Antigen - Final 01/19/18 19:14 Sputum Gram Stain - Final 01/19/18 19:14 Sputum Sputum Culture - Final Enterobacter Aerogenes Yeast, Not Tamra Albicans Greatly Reduced Normal Didi Impressions: Chest/Abdomen CTA 01/19/18 00:00 IMPRESSION: No gross CT angio evidence of thoracic aortic dissection or acute pulmonary emboli. Diffuse reticulonodular infiltrates throughout both lungs, new compared to previous chest films. Findings are worrisome for atypical pneumonia, pneumonitis or fungal infection. Sarcoidosis could mimic this appearance Chest X-Ray 01/19/18 09:35 IMPRESSION: 1. Reticular opacities bilaterally. Differential considerations include atypical infection, interstitial pulmonary edema or pulmonary micro nodules. 2. Small bilateral pleural effusions. 3. Soft tissue prominence of the right hilum and right paratracheal region which may represent adenopathy. CT chest with intravenous contrast is recommended for further evaluation. Qualifiers - * PATIENT BEING DISCHARGED WITH ANY OF THE FOLLOWING DIAGNOSIS: No
--- NOTE | 2018-01-23 17:50 | PDOC CONSULTATION ---
Consultation Consult Date: 01/23/18 Attending physician:: THIERNO LEWIS Consult reason:: Dyspnea/respiratory failure History of Present Illness Admission Date/PCP: 01/19/18 12:22 OCTAVIO MOLINA History of Present Illness: PIEDAD GILES is a 62 year old female;Multiple admissions for exacerbations of COPD several to many of which required intubation patient has a [id number] history and admits to smoking up until the time of admission despite being on oxygen at home she admits to chronic cough productive of clear to yellow tinted phlegm she denies hemoptysis her PPD is negative dates unknown no history of chronic lung diseases child or adolescent admits to large amounts of smoke passively exposed to as a child as well as an adult she has felt self has smoked for approximately 50 years 1-1-1/2 packs/day she is also exposed to large amounts of chemicals at work. 1 dog no recent travel no angina-like chest pain sleeps on 2-3 pillows occasional PND occasional nocturnal cough occasional edema admits to snoring restless sleep nocturia 2-3 times per night unrestful sleep and excessive daytime somnolence Past Medical History Cardiac Medical History: Reports: Congestive Heart Failure, Coronary Artery Disease, Myocardial Infarction, Hypertension Pulmonary Medical History: Reports: Chronic Obstructive Pulmonary Disease (COPD) , Intubation, Pneumonia, Respiratory Failure Denies: Tuberculosis Neurological Medical History: Denies: Seizures Endocrine Medical History: Reports: Diabetes Mellitus Type 2, Hypothyroidism Musculoskeltal Medical History: Reports: Fibromyalgia Psychiatric Medical History: Reports: Bipolar Disorder, Depression Past Surgical History Past Surgical History: Reports: Appendectomy, Cardiac Catheterization, Section Denies: Pacemaker Social History Information Source: Patient, [facility], [facility] Records Smoking Status: Current Every Day Smoker Cigarettes Packs Per Day: 1.5 Number of Years Smokin Passive smoke exposure as: Both Frequency of Alcohol Use: None Hx Recreational Drug Use: No Drugs: None Hx Prescription Drug Abuse: No Do you have pets?: Yes Have you had any respiratory illnesses as a child?: No Have you been exposed to any sick contacts recently?: No Have you had any recent respiratory illnesses?: No Have you travelled outside of [place] in the past 12 months?: No Family History Family History: COPD, DM, Hypertension Parental Family History Reviewed: Yes Children Family History Reviewed: Yes Sibling(s) Family History Reviewed.: Yes Medication/Allergy Home Medications: Aripiprazole [Abilify 5 mg Tablet] 5 mg PO DAILY 01/20/18 Baclofen [Baclofen 10 mg Tablet] 10 mg PO BID 01/20/18 Buprenorphine HCl/Naloxone HCl [Suboxone 8 mg-2 mg Sl Film] 2 tab SL DAILY 01/20 Citalopram Hydrobromide [Celexa 40 mg Tablet] 40 mg PO DAILY 01/20/18 Clopidogrel Bisulfate [Plavix 75 mg Tablet] 75 mg PO DAILY 01/20/18 Doxepin HCl 100 mg PO QHS 01/20/18 Gabapentin [Neurontin 300 mg Capsule] 600 mg PO Q8 01/20/18 Hydroxyzine Pamoate [Vistaril 25 mg Capsule] 25 mg PO Q8 01/20/18 Promethazine HCl [Phenergan 25 mg Tablet] 25 mg PO Q6HP PRN 01/20/18 Tolterodine Tartrate [Detrol] 2 mg PO BID 01/20/18 Clopidogrel Bisulfate [Plavix 75 mg Tablet] 75 mg PO DAILY tablet 01/23/18 Fluticasone/Salmeterol [Fluticasone-Salmeterol 113-14] 1 each IH Q12 #1 aer.pow.ba 01/23/18 Levofloxacin [Levaquin 750 mg Tablet] 750 mg PO DAILY #5 tablet 01/23/18 Levothyroxine Sodium [Synthroid 0.05 mg Tablet] 0.025 mg PO Q6AM #30 tablet 01/31 Nystatin [Mycostatin 500,000 Unit/5 ml Susp Udcup] 100,000 unit PO Q6 #2 udc 01/31 Prednisone 20 mg PO BID #10 tablet 01/23/18 Tiotropium [place] [Spiriva Handihaler 5 Cap/Kit (18 Mcg/Cap)] 1 cap IH DAILY # 2 kit 01/23/18 Allergies/Adverse Reactions: zolpidem [From Ambien] Adverse Reaction (Verified 06/03/17 20:55) Review of Systems Constitutional: PRESENT: fatigue, night sweats, weakness. ABSENT: anorexia, chills, fever(s), headache(s) Eyes: ABSENT: visual disturbances Ears: ABSENT: hearing changes Nose, Mouth, and Throat: ABSENT: mouth pain Breasts: ABSENT: other Cardiovascular: ABSENT: palpitations Respiratory: ABSENT: hemoptysis Gastrointestinal: ABSENT: abdominal pain, bloating, coffee ground emesis, dysphagia, heartburn, hematemesis, hematochezia, melena Genitourinary: ABSENT: dysuria, hematuria Musculoskeletal: ABSENT: deformity, joint swelling Integumentary: ABSENT: pruritus, rash Neurological: ABSENT: abnormal gait, abnormal movements, abnormal speech, confusion, frequent falls, lack of coordination Psychiatric: ABSENT: hallucinations, homidical ideation, suicidal ideation Endocrine: ABSENT: cold intolerance, heat intolerance Hematologic/Lymphatic: ABSENT: easy bruising Allergic/Immunologic: PRESENT: seasonal rhinorrhea Physical Exam Vital Signs: Temp Pulse Resp BP Pulse Ox 98.5 F 83 20 132/62 H 96 01/23/18 03:35 01/23/18 07:49 01/23/18 07:49 01/23/18 03:35 01/23/18 07:49 Intake & Output 01/22/18 01/23/18 01/24/18 06:59 06:59 06:59 Intake Total 2740 2231 Output Total 100 900 Balance 2640 1331 Weight 66.1 kg 68.4 kg General appearance: PRESENT: no acute distress, cooperative, disheveled, well- developed, well-nourished Head exam: PRESENT: atraumatic, normocephalic Eye exam: PRESENT: conjunctiva pale, EOMI. ABSENT: nystagmus, scleral icterus Mouth exam: PRESENT: dry mucosa, neck supple, tongue midline Teeth exam: PRESENT: edentulous Neck exam: ABSENT: carotid bruit, JVD, lymphadenopathy, thyromegaly, tracheal deviation, tracheostomy Respiratory exam: PRESENT: decreased breath sounds, prolonged expiratory phas, rhonchi, unlabored, wheezes. ABSENT: rales, retraction, stridor Cardiovascular exam: PRESENT: RRR, +S1, +S2 Pulses: PRESENT: normal radial pulses GI/Abdominal exam: PRESENT: soft. ABSENT: tenderness Extremities exam: PRESENT: full ROM, pedal edema. ABSENT: calf tenderness, clubbing, joint swelling, tenderness Musculoskeletal exam: PRESENT: full ROM. ABSENT: deformity, dislocation Neurological exam: PRESENT: alert, awake Psychiatric exam: PRESENT: normal mood Skin exam: PRESENT: dry, warm Results Laboratory Results: 01/19/18 16:22 Clean Catch Midstream Legionella Urinary Antigen - Final 10/06/18 19:14 Sputum Gram Stain - Final 01/19/18 19:14 Sputum Sputum Culture - Final Enterobacter Aerogenes Yeast, Not Tamra Albicans Greatly Reduced Normal Didi Impressions: Chest/Abdomen CTA 01/19/18 00:00 IMPRESSION: No gross CT angio evidence of thoracic aortic dissection or acute pulmonary emboli. Diffuse reticulonodular infiltrates throughout both lungs, new compared to previous chest films. Findings are worrisome for atypical pneumonia, pneumonitis or fungal infection. Sarcoidosis could mimic this appearance Chest X-Ray 01/19/18 09:35 IMPRESSION: 1. Reticular opacities bilaterally. Differential considerations include atypical infection, interstitial pulmonary edema or pulmonary micro nodules. 2. Small bilateral pleural effusions. 3. Soft tissue prominence of the right hilum and right paratracheal region which may represent adenopathy. CT chest with intravenous contrast is recommended for further evaluation. Assessment & Plan - Diagnosis (1) Acute and chronic respiratory failure with hypercapnia Is this a current diagnosis for this admission?: Yes Plan: Noninvasive positive pressure ventilation and supplemental oxygen as you have done (2) COPD with acute exacerbation Is this a current diagnosis for this admission?: Yes Plan: Continue current bronchodilator therapy
== END 2018-01-23 14:35 | disposition home or self-care (01) | DRG 189 ==
LOC: ER 09:30 → EH 12:22 → 4S 13:11 → 3N 14:14 → UNDODISIN 17:02 → 3N 17:38 → 3W 18:49
PROVIDERS: ADMIT Emergency Medicine; ATTEND Emergency Medicine
PROC: 3E0234Z Introduction of Serum, Toxoid and Vaccine into Muscle, Percutaneous Approach (ICD-10-PCS; principal; 2018-01-23)
DX: J96.01 Acute respiratory failure with hypoxia (principal); J18.9 Pneumonia, unspecified organism; J44.1 Chronic obstructive pulmonary disease with (acute) exacerbation; B37.0 Candidal stomatitis; I95.2 Hypotension due to drugs; J96.02 Acute respiratory failure with hypercapnia; I50.9 Heart failure, unspecified; I11.0 Hypertensive heart disease with heart failure; E11.8 Type 2 diabetes mellitus with unspecified complications; Z99.81 Dependence on supplemental oxygen; E03.9 Hypothyroidism, unspecified; M79.7 Fibromyalgia; I25.10 Atherosclerotic heart disease of native coronary artery without angina pectoris; F17.210 Nicotine dependence, cigarettes, uncomplicated; F41.9 Anxiety disorder, unspecified; F31.9 Bipolar disorder, unspecified; T42.4X5A Adverse effect of benzodiazepines, initial encounter; T38.0X5A Adverse effect of glucocorticoids and synthetic analogues, initial encounter; Y92.230 Patient room in hospital as the place of occurrence of the external cause; Z79.2 Long term (current) use of antibiotics; Z79.01 Long term (current) use of anticoagulants; Z79.51 Long term (current) use of inhaled steroids; Z79.899 Other long term (current) drug therapy; Z23 Encounter for immunization
CPT/HCPCS: 36415; 36600; 71045; 71275; 80048; 80053; 81001; 82803; 82962; 83036; 83605; 83735; 83880; 84439; 84443; 84481; 84484; 85025; 85610; 85730; 87040; 87070; 87077; 87086; 87186; 87205; 87804; 87880; 90686; 93005; 93010; 93306; 94640; 94660; 96361; 96365; 96375; 99291; J1650; J1815; J1956; J2060; J2543; J2920; J3475; J3490; J7030; J7620

== ENCOUNTER 2018-05-03 04:06 | Inpatient (IN) | payer MEDICARE, MEDICAID ==
[2018-05-03] MEDS ORDERED: ALBUTEROL SULFATE 0.042% NEB (1.25 MG/3 ML) AMPUL NEB ONE (04:09)
[2018-05-03] MEDS ORDERED: ALBUTEROL SULFATE 0.083% NEB 2.5 MG/3 ML AMPUL NEB ONE ×2 (04:24→04:25)
[2018-05-03 04:26] LABS: ABSOLUTE BASOPHILS # (AUTO) 0.1 10^3/uL (0.0-0.2); ABSOLUTE EOSINOPHILS # (AUTO) 0.1 10^3/uL (0.0-0.6); ABSOLUTE LYMPHOCYTES (AUTO) 3.7 10^3/uL (0.5-4.7); ABSOLUTE MONOCYTES (AUTO) 1.6 10^3/uL (0.1-1.4); ABSOLUTE NEUT (AUTO) 11.4 10^3/uL (1.7-8.2); BASOPHILS % (AUTO) 0.4 % (0-2); EOSINOPHILS % (AUTO) 0.6 % (0-6); HEMATOCRIT 40.7 % (36.0-47.0); HEMOGLOBIN 13.4 g/dL (12.0-15.5); LYMPHOCYTES % (AUTO) 21.8 % (13-45); MEAN CORPUSCULAR HEMOGLOBIN 29.2 pg (27.0-33.4); MEAN CORPUSCULAR HGB CONC 32.9 g/dL (32.0-36.0); MEAN CORPUSCULAR VOLUME 89 fl (80-97); MONOCYTES % (AUTO) 9.3 % (3-13); PLATELET COUNT 291 10^3/uL (150-450); RED BLOOD COUNT 4.58 10^6/uL (3.72-5.28); RED CELL DISTRIBUTION WIDTH 15.6 % (11.5-14.0); SEGMENTED NEUTROPHILS % (AUTO) 67.9 % (42-78); TOTAL CELLS COUNTED % (AUTO) 100 %; WHITE BLOOD COUNT 16.7 10^3/uL (4.0-10.5)
[2018-05-03] MEDS ORDERED: ETOMIDATE INJ/PF 20 MG/10 ML SDV IV ONE (04:27)
[2018-05-03] MEDS ORDERED: KETAMINE HCL INJ 500 MG/10 ML VIAL ONE (04:30)
--- NOTE | 2018-05-03 04:31 | ER Document Report ---
Doctor's Note Notes: 05/03/18 04:15 62-year-old female with a history of COPD and multiple intubations in the past who presents to the emergency department today with complaints of shortness of breath. Patient is alert and oriented and states that she "feels better now than she does when she normally comes in and has to be intubated." Very tight bilaterally, poor air movement, minimal wheezing. (NOLBERTO DOBBINS) 05/03/18 06:09 Patient's condition rapidly changed, she became very weak tired, had difficulty staying awake, intubation was undertaken, I did directly supervised Ronny Tejada PA-C during intubation. Patient was sedated with ketamine and then we used etomidate and vecuronium, patient was sedated afterwards with Versed. 05/03/18 06:10 I did personally see and evaluate this patient in conjunction with the CHICO Tejada. (ANGEL RIGGS)
[2018-05-03] MEDS: NORMAL SALINE 1000 ML 1,000 ML IV PRN ×4 (04:34→18:39)
[2018-05-03 04:38] LABS: VENOUS BLOOD BASE EXCESS 7.3 mmol/L; VENOUS BLOOD HCO3 36.6 mmol/L (20-32); VENOUS BLOOD PH 7.3 (7.30-7.42)
--- NOTE | 2018-05-03 04:39 | RADIOLOGY REPORT (SQ) ---
EXAM DESCRIPTION: XR CHEST 1 VIEW COMPLETED DATE/TME: 05/03/2018 04:11 CLINICAL HISTORY: 62 years, Female, Shortness of breath COMPARISON: None. NUMBER OF VIEWS: One TECHNIQUE: AP view of the chest LIMITATIONS: None. FINDINGS: The lungs are hyperinflated. Minimal right basilar subsegmental atelectasis otherwise the lungs are clear. Cardiac silhouette and pulmonary vessels are normal. No pleural abnormalities. IMPRESSION: No acute cardiopulmonary disease. copyright 2010 [employer]- All Rights Reserved
--- NOTE | 2018-05-03 04:42 | ER Document Report ---
Addendum entered and electronically signed by MAYTE DIA PA-C 05/05/18 01:58: Discharge - Discharge Clinical Impression: COPD with acute exacerbation, Acute and chronic respiratory failure with h ypercapnia Condition: Serious Disposition: ADMITTED INPATIENT Original Note: ED General - General TRAVEL OUTSIDE OF THE [place] IN LAST 30 DAYS: No <MAYTE DIA - Last Filed: 05/03/18 07:48> <ANGEL RIGGS - Last Filed: 05/03/18 08:15> - General Chief Complaint: Respiratory Distress Stated Complaint: RESPIRATORY FAILURE Time Seen by Provider: 05/03/18 04:13 Notes: 62-year-old female with history of COPD, heart attack, hypertension presents in acute respiratory failure brought in by ambulance to the emergency department for an acute COPD exacerbation. Per EMS patient has been intubated 48 times in the past for respiratory failure secondary to COPD. O2 sats in the field were 72% and medics state they were able to get her to 95% after treatments. Patient was given n Solu-Medrol 125, 3 albuterol treatments, 2 g of magnesium in the field prior to arrival. Patient states symptoms have been going on for about 2 days and got progressively worse. She was immediately placed on BiPAP. She is able to carry on a conversation. She is moving air. She complains of cough. Patient is a current smoker. Patient denies fever, chills, nausea, vomiting, abdominal pain. Dr. Landa is her primary care doctor. (MAYTE DIA) - Related Data Allergies/Adverse Reactions: zolpidem [From Ambien] Adverse Reaction (Verified 06/03/17 20:55) Past Medical History - General Information source: Patient, Emergency Med Personnel - Social History Smoking Status: Current Every Day Smoker Family History: Reviewed & Not Pertinent - Past Medical History Cardiac Medical History: Reports: Hx Congestive Heart Failure, Hx Coronary Artery Disease, Hx Heart Attack, Hx Hypertension Pulmonary Medical History: Reports: Hx COPD, Hx Pneumonia, Hx Intubation, Hx Respiratory Failure Denies: Hx Tuberculosis Neurological Medical History: Denies: Hx Seizures Endocrine Medical History: Reports: Hx Diabetes Mellitus Type 2, Hx Hypothyroidism Renal/ Medical History: Denies: Hx Peritoneal Dialysis Musculoskeletal Medical History: Reports Hx Fibromyalgia Psychiatric Medical History: Reports: Hx Bipolar Disorder, Hx Depression Past Surgical History: Reports: Hx Appendectomy, Hx Cardiac Catheterization, Hx Cardiac Surgery, Hx Section. Denies: Hx Pacemaker - Immunizations Hx Diphtheria, Pertussis, Tetanus Vaccination: Yes Hx Pneumococcal Vaccination: 04/16/09 <MAYTE DIA - Last Filed: 05/03/18 07:48> Review of Systems - Review of Systems Constitutional: See HPI EENT: No symptoms reported Cardiovascular: See HPI Respiratory: See HPI Gastrointestinal: See HPI Genitourinary: No symptoms reported Female Genitourinary: No symptoms reported Musculoskeletal: No symptoms reported Skin: No symptoms reported Hematologic/Lymphatic: No symptoms reported Neurological/Psychological: No symptoms reported <MAYTE DIA - Last Filed: 05/03/18 07:48> Physical Exam <MAYTE DIA - Last Filed: 05/03/18 07:48> - Vital signs Vitals: Resp Pulse Ox 41 H 84 L 05/03/18 04:08 05/03/18 04:08 - Notes Notes: Reviewed vital signs and nursing note as charted by RN. CONSTITUTIONAL: Ill-appearing in acute distress, cachectic HEAD: Normocephalic, atraumatic, no swelling EYES: PERRL, Conjunctivae clear, no drainage, EOMI, no scleral icterus ENT: External ears without lesions, airway patent NECK: Supple, no masses CARD: Regular rate and rhythm, no murmurs, no rubs, no gallops RESP: Tachypnea, patient is very tight and not moving a lot of air. Patient with minimal wheezing but that is secondary to lack of air movement even though patient is able to carry on a normal conversation ABD/GI: Normal bowel sounds, non-distended, soft, non-tender, no rebound, no guarding, no palpable organomegaly EXT: Normal ROM in all joints, non-tender to palpation, no effusions, no edema SKIN: Normal color for age and race, warm, dry, good turgor, no acute lesions noted NEURO: No facial asymmetry, moves all extremities equally, motor and sensory function intact (MAYTE DIA) Course - Laboratory Result Diagrams: 05/03/18 04:10 05/03/18 04:10 <MAYTE DIA - Last Filed: 05/03/18 07:48> - Laboratory Result Diagrams: 05/03/18 04:10 05/03/18 04:10 <ANGEL RIGGS - Last Filed: 05/03/18 08:15> - Re-evaluation Re-evalutation: 05/03/18 05:45 Acutely ill 62-year-old female with COPD, hypertension, reported CHF and history of heart attack presents to the emergency department in respiratory failure after stating she has had progressive respiratory distress over the last 2 days. Per EMS and patient she has been intubated at least 40 times for COPD exacerbations. During transport patient was given Solu-Medrol 125 mg, 3 DuoNeb's, magnesium 2 mg. Initially, patient was placed on BiPAP with some improvement. After several minutes patient became obtunded but was maintaining adequate SPO2. Decision was made to intubate patient. Patient was preoxygenated and given a total of 300 mg of ketamine. Patient was then given etomidate and succinylcholine and intubated using glide scope with MAC 4 blade with an 80 ET tube. Patient was then placed on the ventilator with a volume of 5 mL's per cake ideal body weight, rate 16, PEEP of 5 at 40% initially. Patient was stable but then had periods of hypotension and was given fluid boluses. Patient's vital signs are currently stable, latest blood pressure reading 115/60 with a map of 77, heart rate 94. Dr. Maurice was contacted and accepted patient for admission to the ICU. 05/03/18 07:50 (MAYTE DIA) 05/03/18 08:14 Laboratory studies show a leukocytosis at 16.7, chest x-ray did not reveal any infiltrates, chest x-ray after intubation revealed good position of the tube, venous blood gas showed a pH of 7.30 and a PCO2 of 75.5, medicine requested that we repeat the blood gas now that she is on the ventilator to make sure that this was a true acidosis rather than just artifact from a venous blood gas, this showed a worsened pH at 7.13 and an elevated PCO2 at 98.3, however given the fact that the PO2 was 61.5 and the oxygen saturation was 81.8 on this blood gas I suspect this is again a venous blood gas. Chemistries grossly unremarkable, cardiac enzymes normal, urinalysis unremarked (ANGEL RIGGS) - Vital Signs Vital signs: Temp Pulse Resp BP Pulse Ox 96.4 F L 21 H 110/60 97 05/03/18 07:46 05/03/18 07:46 05/03/18 07:46 05/03/18 07:46 - Laboratory Laboratory results interpreted by me: 05/03/18 05/03/18 05/03/18 04:10 04:10 04:10 WBC 16.7 H RDW 15.6 H Absolute Neutrophils 11.4 H Absolute Monocytes 1.6 H Carbonic Acid ABG pH ABG pCO2 ABG pO2 ABG HCO3 ABG Total CO2 ABG O2 Saturation VBG pCO2 75.5 H* VBG HCO3 36.6 H Carbon Dioxide 34 H Glucose 124 H 05/03/18 06:15 WBC RDW Absolute Neutrophils Absolute Monocytes Carbonic Acid 2.72 H ABG pH 7.13 L* ABG pCO2 90.3 H* ABG pO2 61.5 L ABG HCO3 29.2 H ABG Total CO2 31.9 H ABG O2 Saturation 81.8 L VBG pCO2 VBG HCO3 Carbon Dioxide Glucose Procedures - Intubation Orotracheal Airway evaluation: Normal anatomy, Other - dentures Mallampati Classification: Class 2 Medications: Etomidate, Succinylcholine, Ketamine Intubation method: Orotracheal Blade type: Trudy - Glidescope Blade size: 4 Equipment used: Glidescope ETT size: 8.0 ETT secured at: Gums ETT secured at (cm): 23 Breath Sounds after Intubation: Equal End tidal CO2 confirmed: Yes Ventilator settings: SIMV Tidal volume: 400 FiO2: 40 Respirations: 16 Pressure support: 10 PEEP: 5 Post Intubation Xray: Yes Intubation Complications: No complications <ANGEL RIGGS - Last Filed: 05/03/18 08:15> Critical Care Note - Critical Care Note Total time excluding time spent on procedures (mins): 70 <ANGEL RIGGS - Last Filed: 05/03/18 08:15> Discharge <MAYTE DIA - Last Filed: 05/03/18 07:48> - Discharge Admitting Provider: [facility] Unit Admitted: ICU <ANGEL RIGGS - Last Filed: 05/03/18 08:15> - Discharge Clinical Impression: COPD with acute exacerbation, Acute and chronic respiratory failure with hypercapnia Condition: Serious Disposition: ADMITTED INPATIENT
[2018-05-03 04:44] LABS: VENOUS BLOOD PCO2 75.5 mmHg (35-63)
[2018-05-03 04:45] LABS: ALANINE AMINOTRANSFERASE 14 U/L (9-52); ALBUMIN 3.7 g/dL (3.5-5.0); ALKALINE PHOSPHATASE 67 U/L (38-126); ANION GAP 5 (5-19); ASPARTATE AMINO TRANSFERASE 17 U/L (14-36); BILIRUBIN,DIRECT 0.4 mg/dL (0.0-0.4); BILIRUBIN,TOTAL 0.7 mg/dL (0.2-1.3); BLOOD UREA NITROGEN 17 mg/dL (7-20); CALCIUM 8.7 mg/dL (8.4-10.2); CARBON DIOXIDE 34 mmol/L (22-30); CHLORIDE 99 mmol/L (98-107); GLUCOSE 124 mg/dL (75-110); POTASSIUM 4.5 mmol/L (3.6-5.0); SODIUM 138.1 mmol/L (137-145); TOTAL PROTEIN 6.5 g/dL (6.3-8.2)
[2018-05-03] MEDS ORDERED: PROPOFOL 1,000 MG/100 ML INFUS..BTL IV ONE (04:49)
[2018-05-03] MEDS ORDERED: KETAMINE HCL INJ 500 MG/10 ML VIAL IV ONE (05:15)
[2018-05-03] MEDS: MIDAZOLAM HCL 50 MG/100 ML RTUINJ IV PRN ×4 (05:24→23:21)
--- NOTE | 2018-05-03 05:33 | RADIOLOGY REPORT (SQ) ---
EXAM DESCRIPTION: XR CHEST 1 VIEW COMPLETED DATE/TME: 05/03/2018 05:17 CLINICAL HISTORY: Shortness of breath 62 years Female, ETT placement COMPARISON: June 06, 2017, CTA January 19, 2018. NUMBER OF VIEWS/TECHNIQUE: 1/AP FINDINGS: Increased emphysematous lung volume, mild diffuse interstitial markings, normal cardiac silhouette, and intact bony thorax.Adequate appearing endotracheal tube. Likely adequate appearing enteric tube partially obscured. IMPRESSION: Mild interstitial markings. Differential diagnosis includes pulmonary edema, atypical pneumonitis, and chronic interstitial lung disease.
[2018-05-03 06:24] LABS: APPEARANCE,URINE CLEAR; BILIRUBIN,URINE NEGATIVE (NEGATIVE); COLOR,URINE YELLOW; GLUCOSE, URINE NEGATIVE (NEGATIVE); KETONES,URINE NEGATIVE (NEGATIVE); LEUKOCYTE ESTERASE,URINE NEGATIVE (NEGATIVE); NITRITE,URINE NEGATIVE (NEGATIVE); PROTEIN,URINE NEGATIVE (NEGATIVE); UROBILINOGEN,URINE NEGATIVE mg/dL (<2.0)
[2018-05-03 06:35] LABS: ARTERIAL BLOOD H2CO3 2.72 mmol/L (1.05-1.35); ARTERIAL BLOOD HCO3 29.2 mmol/L (20-24); ARTERIAL BLOOD O2 SATURATION 81.8 % (94-98); ARTERIAL BLOOD PO2 61.5 mmHg (80-100); ARTERIAL BLOOD TOTAL CO2 31.9 mmol/L (21-25)
[2018-05-03 06:37] LABS: ARTERIAL BLOOD FIO2 60%
[2018-05-03 06:40] LABS: ARTERIAL BLOOD PCO2 90.3 mmHg (35-45); ARTERIAL BLOOD PH 7.13 (7.35-7.45)
[2018-05-03] MEDS ORDERED: IPRATROPIUM/ALBUTEROL 0.5-2.5 MG/3 ML AMPUL NEB PRN (06:48)
[2018-05-03] MEDS ORDERED: ACETAMINOPHEN 325 MG TABLET PO PRN (06:48)
--- NOTE | 2018-05-03 06:59 | PDOC H&P ---
History of Present Illness Admission Date/PCP: OCTAVIO MOLINA Patient complains of: Shortness of breath History of Present Illness: PIEDAD GILES is a 62 year old female with a past medical history of oxygen dependent COPD, chronic pain, anxiety and depression. Presents to the emergency room with acute on chronic respiratory failure found to have a PCO2 of 90 and intubated for altered mental status. She is referred to the hospitalist for admission. Past Medical History Cardiac Medical History: Reports: Coronary Artery Disease, Myocardial Infarction, Hypertension Pulmonary Medical History: Reports: Chronic Obstructive Pulmonary Disease (COPD), Intubation, Pneumonia, Respiratory Failure Denies: Tuberculosis Neurological Medical History: Denies: Seizures Endocrine Medical History: Reports: Diabetes Mellitus Type 2, Hypothyroidism Musculoskeltal Medical History: Reports: Fibromyalgia Psychiatric Medical History: Reports: Bipolar Disorder, Depression Past Surgical History Past Surgical History: Reports: Appendectomy, Cardiac Catheterization, Section Denies: Pacemaker Social History Information Source: Patient Smoking Status: Current Every Day Smoker Frequency of Alcohol Use: None Hx Recreational Drug Use: No Drugs: None Hx Prescription Drug Abuse: No - Advance Directive Resuscitation Status: Full Code Family History Family History: COPD Parental Family History Reviewed: Yes Children Family History Reviewed: Yes Sibling(s) Family History Reviewed.: Yes Medication/Allergy Home Medications: Aripiprazole [Abilify 5 mg Tablet] 5 mg PO DAILY 01/20/18 Baclofen [Baclofen 10 mg Tablet] 10 mg PO BID 01/20/18 Buprenorphine HCl/Naloxone HCl [Suboxone 8 mg-2 mg Sl Film] 2 tab SL DAILY 01/20/18 Citalopram Hydrobromide [Celexa 40 mg Tablet] 40 mg PO DAILY 01/20/18 Clopidogrel Bisulfate [Plavix 75 mg Tablet] 75 mg PO DAILY 01/20/18 Doxepin HCl 100 mg PO QHS 01/20/18 Gabapentin [Neurontin 300 mg Capsule] 600 mg PO Q8 01/20/18 Hydroxyzine Pamoate [Vistaril 25 mg Capsule] 25 mg PO Q8 01/20/18 Promethazine HCl [Phenergan 25 mg Tablet] 25 mg PO Q6HP PRN 01/20/18 Tolterodine Tartrate [Detrol] 2 mg PO BID 01/20/18 Clopidogrel Bisulfate [Plavix 75 mg Tablet] 75 mg PO DAILY tablet 01/23/18 Fluticasone/Salmeterol [Fluticasone-Salmeterol 113-14] 1 each IH Q12 #1 aer.[email or web address] 01/23/18 Levofloxacin [Levaquin 750 mg Tablet] 750 mg PO DAILY #5 tablet 01/23/18 Levothyroxine Sodium [Synthroid 0.05 mg Tablet] 0.025 mg PO Q6AM #30 tablet 01/23/18 Nystatin [Mycostatin 500,000 Unit/5 ml Susp Udcup] 100,000 unit PO Q6 #2 udc 01/23/18 Prednisone 20 mg PO BID #10 tablet 01/23/18 Tiotropium [place] [Spiriva Handihaler 5 Cap/Kit (18 Mcg/Cap)] 1 cap IH DAILY #2 kit 01/23/18 Allergies/Adverse Reactions: zolpidem [From Ambien] Adverse Reaction (Verified 06/03/17 20:55) Review of Systems ROS unobtainable: Due to endotracheal tube Physical Exam Vital Signs: Temp Pulse Resp BP Pulse Ox 95.9 F L 19 113/87 H 93 05/03/18 06:40 05/03/18 06:40 05/03/18 06:40 05/03/18 06:40 Intake & Output 05/01/18 05/02/18 05/03/18 11:59 11:59 11:59 Intake Total 4 Balance 4 Weight 55.3 kg General appearance: PRESENT: severe distress, thin, other - Chronically ill and appearing older than stated age Head exam: PRESENT: atraumatic, normocephalic Eye exam: PRESENT: conjunctiva pink, EOMI, PERRLA. ABSENT: scleral icterus Ear exam: PRESENT: normal external ear exam Mouth exam: PRESENT: moist, tongue midline Neck exam: ABSENT: carotid bruit, JVD, lymphadenopathy, thyromegaly Respiratory exam: PRESENT: accessory muscle use, crackles, decreased breath sounds, tachypnea. ABSENT: rales, rhonchi, wheezes Cardiovascular exam: PRESENT: RRR. ABSENT: diastolic murmur, rubs, systolic murmur Pulses: PRESENT: normal dorsalis pedis pul Vascular exam: PRESENT: normal capillary refill GI/Abdominal exam: PRESENT: normal bowel sounds, soft. ABSENT: distended, guarding, mass, organolmegaly, rebound, tenderness Rectal exam: PRESENT: deferred Extremities exam: PRESENT: full ROM. ABSENT: calf tenderness, clubbing, pedal edema Neurological exam: PRESENT: altered. ABSENT: motor sensory deficit Psychiatric exam: PRESENT: appropriate affect, normal mood. ABSENT: homicidal ideation, suicidal ideation Skin exam: PRESENT: dry, intact, warm. ABSENT: cyanosis, rash Results Laboratory Results: 05/03/18 04:10 05/03/18 04:10 05/03/18 05/03/18 05/03/18 04:10 04:10 04:10 WBC 16.7 H RBC 4.58 Hgb 13.4 Hct 40.7 MCV 89 MCH 29.2 MCHC 32.9 RDW 15.6 H Plt Count 291 Seg Neutrophils % 67.9 Lymphocytes % 21.8 Monocytes % 9.3 Eosinophils % 0.6 Basophils % 0.4 Absolute Neutrophils 11.4 H Absolute Lymphocytes 3.7 Absolute Monocytes 1.6 H Absolute Eosinophils 0.1 Absolute Basophils 0.1 Carbonic Acid HCO3/H2CO3 Ratio ABG pH ABG pCO2 ABG pO2 ABG HCO3 ABG O2 Saturation ABG Base Excess VBG pH 7.30 VBG pCO2 75.5 H* VBG HCO3 36.6 H VBG Base Excess 7.3 FiO2 Sodium 138.1 Potassium 4.5 Chloride 99 Carbon Dioxide 34 H Anion Gap 5 BUN 17 Creatinine 0.90 Est GFR ( Amer) > 60 Est GFR (Non-Af Amer) > 60 Glucose 124 H Calcium 8.7 Total Bilirubin 0.7 AST 17 ALT 14 Alkaline Phosphatase 67 Total Protein 6.5 Albumin 3.7 Urine Color Urine Appearance Urine pH Ur Specific [place] Urine Protein Urine Glucose (UA) Urine Ketones Urine Blood Urine Nitrite Ur Leukocyte Esterase Urine WBC (Auto) 05/03/18 05/03/18 05:58 06:15 WBC RBC Hgb Hct MCV MCH MCHC RDW Plt Count Seg Neutrophils % Lymphocytes % Monocytes % Eosinophils % Basophils % Absolute Neutrophils Absolute Lymphocytes Absolute Monocytes Absolute Eosinophils Absolute Basophils Carbonic Acid 2.72 H HCO3/H2CO3 Ratio 10:1 ABG pH 7.13 L* ABG pCO2 90.3 H* ABG pO2 61.5 L ABG HCO3 29.2 H ABG O2 Saturation 81.8 L ABG Base Excess -2.0 VBG pH VBG pCO2 VBG HCO3 VBG Base Excess FiO2 60% Sodium Potassium Chloride Carbon Dioxide Anion Gap BUN Creatinine Est GFR ( Amer) Est GFR (Non-Af Amer) Glucose Calcium Total Bilirubin AST ALT Alkaline Phosphatase Total Protein Albumin Urine Color YELLOW Urine Appearance CLEAR Urine pH 5.0 Ur Specific [place] 1.010 Urine Protein NEGATIVE Urine Glucose (UA) NEGATIVE Urine Ketones NEGATIVE Urine Blood NEGATIVE Urine Nitrite NEGATIVE Ur Leukocyte Esterase NEGATIVE Urine WBC (Auto) 1 05/03/18 04:10 Troponin I < 0.012 Impressions: Chest X-Ray 05/03/18 05:17 IMPRESSION: Mild interstitial markings. Differential diagnosis includes pulmonary edema, atypical pneumonitis, and chronic interstitial lung disease. Assessment & Plan - Diagnosis (1) Acute and chronic respiratory failure with hypercapnia Is this a current diagnosis for this admission?: Yes Plan: Complicated by tobacco, bipolar, noncompliance. Intubated, albuterol and Atrovent, stress dose steroids, empiric antibiotics initiated. Follow-up CBC, chemistry, ABG and blood culture. (2) COPD with acute exacerbation Is this a current diagnosis for this admission?: Yes Plan: Please see #1 (3) Bipolar disorder Is this a current diagnosis for this admission?: Yes Plan: Currently on Versed. - Time Time Spent: 50 to 70 Minutes - Inpatient Certification Medical Necessity: Need Close Monitoring Due to Risk of Patient Decompensation
[2018-05-03] MEDS ORDERED: NORMAL SALINE 1000 ML 1,000 ML IV ONE (07:12)
[2018-05-03] MEDS ORDERED: IPRATROPIUM/ALBUTEROL 0.5-2.5 MG/3 ML AMPUL NEB SCH (08:00)
[2018-05-03] MEDS ORDERED: NORMAL SALINE 1000 ML 1,000 ML IV PRN (08:27)
[2018-05-03] MEDS: METHYLPREDNISOLONE INJ 125 MG/2 ML SDV IV SCH ×3 (08:55→21:36)
[2018-05-03] MEDS: LEVOFLOXACIN 750 MG/D5W RTU 750 MG/150 ML RTUPB IV SCH (08:58)
--- NOTE | 2018-05-03 09:01 | PDOC PROGRESS REPORT ---
Subjective Progress Note for:: 05/03/18 Subjective:: 05/03/2018 patient is still on the vent with sedation. Repeat ABG shows PCO2 of 90. Pulse oxes are improved with deep suctioning. Plan to repeat the ABG around 10 AM. Patient was started on levofloxacin and cefepime. Blood cultures sputum cultures urine cultures are requested. Patient is still in the ED was the bed is available she will be moved to the intensive care unit. At the moment patient condition is critical. Reason For Visit: ACUTE RESP FAILURE, PNEUMONIA Physical Exam Vital Signs: Temp Pulse Resp BP Pulse Ox 97.1 F 16 109/57 L 96 05/03/18 08:26 05/03/18 08:26 05/03/18 08:26 05/03/18 08:26 Intake & Output 05/02/18 05/03/18 05/04/18 06:59 06:59 06:59 Intake Total 2003 Balance 2003 Weight 55.3 kg General appearance: PRESENT: other - Patient is intubated and sedated. Head exam: PRESENT: atraumatic Eye exam: PRESENT: PERRLA Mouth exam: PRESENT: moist Neck exam: ABSENT: carotid bruit, JVD, lymphadenopathy, thyromegaly Respiratory exam: PRESENT: decreased breath sounds Cardiovascular exam: PRESENT: tachycardia GI/Abdominal exam: PRESENT: normal bowel sounds, soft. ABSENT: distended, guarding, mass, organolmegaly, rebound, tenderness Extremities exam: PRESENT: full ROM. ABSENT: calf tenderness, clubbing, pedal edema Neurological exam: PRESENT: other - Patient is intubated under sedation. Psychiatric exam: PRESENT: other - Patient is intubated unable to do the psych evaluation. Results Laboratory Results: 05/03/18 04:10 05/03/18 04:10 05/03/18 05/03/18 05/03/18 04:10 04:10 04:10 WBC 16.7 H RBC 4.58 Hgb 13.4 Hct 40.7 MCV 89 MCH 29.2 MCHC 32.9 RDW 15.6 H Plt Count 291 Seg Neutrophils % 67.9 Lymphocytes % 21.8 Monocytes % 9.3 Eosinophils % 0.6 Basophils % 0.4 Absolute Neutrophils 11.4 H Absolute Lymphocytes 3.7 Absolute Monocytes 1.6 H Absolute Eosinophils 0.1 Absolute Basophils 0.1 Carbonic Acid HCO3/H2CO3 Ratio ABG pH ABG pCO2 ABG pO2 ABG HCO3 ABG O2 Saturation ABG Base Excess VBG pH 7.30 VBG pCO2 75.5 H* VBG HCO3 36.6 H VBG Base Excess 7.3 FiO2 Sodium 138.1 Potassium 4.5 Chloride 99 Carbon Dioxide 34 H Anion Gap 5 BUN 17 Creatinine 0.90 Est GFR ( Amer) > 60 Est GFR (Non-Af Amer) > 60 Glucose 124 H Calcium 8.7 Total Bilirubin 0.7 AST 17 ALT 14 Alkaline Phosphatase 67 Total Protein 6.5 Albumin 3.7 Urine Color Urine Appearance Urine pH Ur Specific [place] Urine Protein Urine Glucose (UA) Urine Ketones Urine Blood Urine Nitrite Ur Leukocyte Esterase Urine WBC (Auto) 05/03/18 05/03/18 05:58 06:15 WBC RBC Hgb Hct MCV MCH MCHC RDW Plt Count Seg Neutrophils % Lymphocytes % Monocytes % Eosinophils % Basophils % Absolute Neutrophils Absolute Lymphocytes Absolute Monocytes Absolute Eosinophils Absolute Basophils Carbonic Acid 2.72 H HCO3/H2CO3 Ratio 10:1 ABG pH 7.13 L* ABG pCO2 90.3 H* ABG pO2 61.5 L ABG HCO3 29.2 H ABG O2 Saturation 81.8 L ABG Base Excess -2.0 VBG pH VBG pCO2 VBG HCO3 VBG Base Excess FiO2 60% Sodium Potassium Chloride Carbon Dioxide Anion Gap BUN Creatinine Est GFR ( Amer) Est GFR (Non-Af Amer) Glucose Calcium Total Bilirubin AST ALT Alkaline Phosphatase Total Protein Albumin Urine Color YELLOW Urine Appearance CLEAR Urine pH 5.0 Ur Specific [place] 1.010 Urine Protein NEGATIVE Urine Glucose (UA) NEGATIVE Urine Ketones NEGATIVE Urine Blood NEGATIVE Urine Nitrite NEGATIVE Ur Leukocyte Esterase NEGATIVE Urine WBC (Auto) 1 05/03/18 04:10 Troponin I < 0.012 Impressions: Chest X-Ray 05/03/18 05:17 IMPRESSION: Mild interstitial markings. Differential diagnosis includes pulmonary edema, atypical pneumonitis, and chronic interstitial lung disease. Assessment & Plan - Diagnosis (1) Acute and chronic respiratory failure with hypercapnia Is this a current diagnosis for this admission?: Yes Plan: 05/03/2018-patient came in with PCO2 of 90. She was intubated properly. She was admitted for similar complaints and had at least 49 intubations before. Plan is to continue the mechanical ventilation with sedation, pulmonary consult was requested. Be going to do the daily ABGs. On IV Solu-Medrol 125 mg every 8 hours, nebulizer treatments, started on cefepime and levofloxacin. Chest x-ray did not show any pneumonia. Again condition is critical V going to follow her closely. (2) Bipolar disorder Is this a current diagnosis for this admission?: Yes Plan: 05/03/2018 patient has history of bipolar disorder she is on few home medications. Patient is presently under sedation with Versed. P.o. medications are on hold. (3) COPD with acute exacerbation Is this a current diagnosis for this admission?: Yes Plan: 05/03/2018-patient has history of chronic COPD on home oxygen. COPD exacerbation may be secondary to chronic smoking/atypical pneumonitis. X-rays also showing pulmonary edema. Requested for BNP. - Time Time Spent with patient: 15-24 minutes Medications reviewed and adjusted accordingly: Yes Anticipated discharge: Home
[2018-05-03] MEDS ORDERED: SUCCINYLCHOLINE CHLORIDE INJ 200 MG/10 ML VIAL ONE (09:21)
--- NOTE | 2018-05-03 09:21 | EKG REPORT ---
SEVERITY:- ABNORMAL ECG - SINUS TACHYCARDIA RIGHT ATRIAL ABNORMALITY BORDERLINE RIGHT AXIS DEVIATION : Confirmed by: Daniela Vasquez 03-May-2018 09:20:22
[2018-05-03] MEDS ORDERED: (PENDING PHARMACY ID) (Citalopram Hydrobromide [Celexa 40 Mg Tablet] 40 MG) PO SCH (10:00)
[2018-05-03] MEDS ORDERED: CLOPIDOGREL BISULFATE 75 MG TABLET PO SCH (10:00)
[2018-05-03] MEDS ORDERED: BACLOFEN 10 MG TABLET PO SCH (10:00)
[2018-05-03] MEDS ORDERED: (PENDING PHARMACY ID) (Tolterodine Tartrate [Detrol] 2 MG) PO SCH (10:00)
[2018-05-03] MEDS ORDERED: NALOXONE HCL SL SCH (10:00)
[2018-05-03] MEDS ORDERED: ARIPIPRAZOLE 5 MG TABLET PO SCH (10:00)
[2018-05-03] MEDS ORDERED: TOLTERODINE TARTRATE 1 MG TABLET PO SCH (10:00)
[2018-05-03] MEDS ORDERED: [UNRECOGNIZED DRUG - OTHER] SL SCH (10:00)
[2018-05-03] MEDS ORDERED: (PENDING PHARMACY ID) (Fluticasone/Salmeterol [Fluticasone-Salmeterol 113-14] 1 EACH) IH SCH (10:00)
[2018-05-03] MEDS ORDERED: BUPRENORPHINE HCL SL SCH (10:00)
--- NOTE | 2018-05-03 10:30 | RADIOLOGY REPORT (SQ) ---
EXAM DESCRIPTION: CT CHEST WITHOUT COMPLETED DATE/TIME: 05/03/2018 10:16 am REASON FOR STUDY: resp failure COMPARISON: 01/19/2018 TECHNIQUE: CT scan performed of the chest without intravenous contrast. Images reviewed with lung, soft tissue and bone windows. Reconstructed coronal and sagittal MPR images reviewed. All images st ored on PACS. All CT scanners at this facility use dose modulation, iterative reconstruction, and/or weight based d osing when appropriate to reduce radiation dose to as low as reasonably achievable (ALARA). [facility]: Dose Right [facility]: CareDose [facility]: Dose Right [facility]: Teradose 4D [facility]: Smart Emissary RADIATION DOSE: CT Rad equipment meets quality standard of care and radiation dose reduction techniq ues were employed. CTDIvol: 8.8 mGy. DLP: 341 mGy-cm. mGy. LIMITATIONS: No technical limitations. FINDINGS: LUNGS AND PLEURA: There is limited opacification in the medial aspect of the anterior righ t upper lobe. There is no pleural effusion. No mass is seen. HILAR AND MEDIASTINAL STRUCTURES: There are a few nonspecific mediastinal nodes. HEART AND VASCULAR STRUCTURES: No aneurysm. No pericardial effusion. UPPER ABDOMEN: No significant findings. Limited exam. THYROID AND OTHER SOFT TISSUES: No masses. No adenopathy. BONES: No significant finding. HARDWARE: Endotracheal tube. NG tube. OTHER: No other significant findings. IMPRESSION: Limited airspace disease in the anterior right upper lobe. Pneumonia versus atelectasis . TECHNICAL DOCUMENTATION: JOB ID: [id number] Quality ID # [id number]: Final reports with documentation of one or more dose reduction techniques (e.g., Au tomated exposure control, adjustment of the mA and/or kV according to patient size, use of iterative reconstruction technique) 2010 [employer]- All Rights Reserved Reading location - IP/workstation name: [email or web address]
[2018-05-03 10:50] LABS: ARTERIAL BLOOD BASE EXCESS -1.8 mmol/L; ARTERIAL BLOOD H2CO3 1.97 mmol/L (1.05-1.35); ARTERIAL BLOOD HCO3 26.9 mmol/L (20-24); ARTERIAL BLOOD O2 SATURATION 90.8 % (94-98); ARTERIAL BLOOD PCO2 65.5 mmHg (35-45); ARTERIAL BLOOD PH 7.23 (7.35-7.45); ARTERIAL BLOOD PO2 71.2 mmHg (80-100); ARTERIAL BLOOD TOTAL CO2 28.9 mmol/L (21-25)
[2018-05-03 10:53] LABS: ARTERIAL BLOOD FIO2 30%
[2018-05-03] MEDS: LEVALBUTEROL HCL NEB 1.25 MG/3 ML AMPUL NEB SCH ×4 (11:39→23:40)
[2018-05-03] MEDS: TIOTROPIUM BROMIDE DPI 5 CAP/KIT (18 MCG/CAP) IH SCH (11:59)
[2018-05-03] MEDS: PANTOPRAZOLE SODIUM 40 MG VIAL IV SCH ×2 (11:59→21:35)
[2018-05-03] MEDS ORDERED: ACETAMINOPHEN 325 MG TABLET NG PRN (12:00)
[2018-05-03] MEDS: NYSTATIN 500000 UNIT/5 ML UDCUP PO SCH ×2 (12:22→17:37)
[2018-05-03] MEDS ORDERED: CEFEPIME 2 GM/D5W RTU 2 GM/50 ML RTUPB IV ONE (13:30)
[2018-05-03] MEDS ORDERED: HYDROXYZINE PAMOATE 25 MG CAPSULE PO SCH (14:00)
[2018-05-03] MEDS ORDERED: GABAPENTIN 300 MG CAPSULE PO SCH (14:00)
[2018-05-03] MEDS: CEFEPIME 2 GM/D5W RTU 2 GM/50 ML RTUPB IV SCH ×2 (14:36→21:35)
[2018-05-03] MEDS: HEPARIN SOD (PORCINE) 5,000 UNIT/ML 1 ML SYRINGE SUBCUT SCH ×2 (15:18→21:36)
[2018-05-03] MEDS: BACLOFEN 10 MG TABLET NG SCH (17:36)
[2018-05-03] MEDS: DOXEPIN HCL 25 MG CAPSULE NG SCH (21:37)
[2018-05-03] MEDS: TOLTERODINE TARTRATE 1 MG TABLET NG SCH (21:37)
[2018-05-03] MEDS ORDERED: DOXEPIN HCL 25 MG CAPSULE PO SCH (22:00)
[2018-05-03] MEDS ORDERED: (PENDING PHARMACY ID) (Doxepin Hcl [Doxepin Hcl] 100 MG) PO SCH (22:00)
[2018-05-04] MEDS: NYSTATIN 500000 UNIT/5 ML UDCUP PO SCH ×5 (00:13→23:09)
[2018-05-04] MEDS: MIDAZOLAM HCL 50 MG/100 ML RTUINJ IV PRN ×4 (03:11→22:24)
[2018-05-04] MEDS: NORMAL SALINE 1000 ML 1,000 ML IV PRN ×2 (03:11→16:33)
[2018-05-04] MEDS: LEVALBUTEROL HCL NEB 1.25 MG/3 ML AMPUL NEB SCH ×5 (03:43→20:36)
[2018-05-04 04:08] LABS: HEMATOCRIT 34.6 % (36.0-47.0); MEAN CORPUSCULAR HGB CONC 32.8 g/dL (32.0-36.0); MEAN CORPUSCULAR VOLUME 89 fl (80-97); PLATELET COUNT 218 10^3/uL (150-450); RED BLOOD COUNT 3.91 10^6/uL (3.72-5.28); RED CELL DISTRIBUTION WIDTH 15.4 % (11.5-14.0); WHITE BLOOD COUNT 22.7 10^3/uL (4.0-10.5)
[2018-05-04 04:17] LABS: BLOOD UREA NITROGEN 19 mg/dL (7-20); CALCIUM 7.8 mg/dL (8.4-10.2); GLUCOSE 145 mg/dL (75-110); POTASSIUM 4.5 mmol/L (3.6-5.0)
[2018-05-04 04:21] LABS: ARTERIAL BLOOD BASE EXCESS 1.2 mmol/L; ARTERIAL BLOOD H2CO3 1.68 mmol/L (1.05-1.35); ARTERIAL BLOOD HCO3 28.1 mmol/L (20-24); ARTERIAL BLOOD O2 SATURATION 91.3 % (94-98); ARTERIAL BLOOD PCO2 55.7 mmHg (35-45); ARTERIAL BLOOD PH 7.32 (7.35-7.45); ARTERIAL BLOOD PO2 66.5 mmHg (80-100); ARTERIAL BLOOD TOTAL CO2 29.8 mmol/L (21-25)
[2018-05-04 04:22] LABS: CARBON DIOXIDE 27 mmol/L (22-30); CHLORIDE 106 mmol/L (98-107)
[2018-05-04 04:24] LABS: ARTERIAL BLOOD FIO2 40%
[2018-05-04 04:25] LABS: SODIUM 135.7 mmol/L (137-145)
[2018-05-04 04:28] LABS: ANION GAP 3 (5-19)
[2018-05-04 04:32] LABS: ABSOLUTE LYMPHOCYTES# (MANUAL) 0.5 10^3/uL (0.5-4.7); ABSOLUTE NEUTROPHILS# (MANUAL) 22.2 10^3/uL (1.7-8.2); BASOPHILS % (MANUAL) 0 % (0-2); EOSINOPHILS % (MANUAL) 0 % (0-6); LYMPHOCYTES % (MANUAL) 2 % (13-45); MONOCYTES % (MANUAL) 0 % (3-13); SEGMENTED NEUTROPHILS % (MAN) 98 % (42-78); TOTAL CELLS COUNTED 100
[2018-05-04 04:33] LABS: ANISOCYTOSIS 1+; PLATELET COMMENT ADEQUATE; POLYCHROMASIA 1+
[2018-05-04 04:34] LABS: HEMOGLOBIN 11.3 g/dL (12.0-15.5)
[2018-05-04] MEDS: HEPARIN SOD (PORCINE) 5,000 UNIT/ML 1 ML SYRINGE SUBCUT SCH ×3 (05:39→21:07)
[2018-05-04] MEDS: METHYLPREDNISOLONE INJ 125 MG/2 ML SDV IV SCH ×3 (05:39→21:06)
[2018-05-04] MEDS ORDERED: LEVOTHYROXINE SODIUM 0.05 MG TABLET PO SCH (06:00)
--- NOTE | 2018-05-04 07:16 | RADIOLOGY REPORT (SQ) ---
EXAM DESCRIPTION: XR CHEST 1 VIEW COMPLETED DATE/TME: 05/04/2018 06:00 CLINICAL HISTORY: 62 years Female, resp failure COMPARISON: One day prior. NUMBER OF VIEWS/TECHNIQUE: 1/AP FINDINGS: Mild medial opacities of the right mid hemithorax, small opacity-effusion of the right lung base, increased lung volume. Prominent interstitium.Adequate appearing endotracheal tube. Likely adequate appearing enteric tube partially obscured. Normal cardiac silhouette size. No pneumothorax. Stable bony thorax. IMPRESSION: No significant change.
[2018-05-04] MEDS: LEVOFLOXACIN 750 MG/D5W RTU 750 MG/150 ML RTUPB IV SCH (08:23)
[2018-05-04] MEDS: PANTOPRAZOLE SODIUM 40 MG VIAL IV SCH ×2 (10:31→21:06)
[2018-05-04] MEDS: BACLOFEN 10 MG TABLET NG SCH ×2 (10:32→17:49)
[2018-05-04] MEDS: TOLTERODINE TARTRATE 1 MG TABLET NG SCH ×2 (10:32→21:07)
[2018-05-04] MEDS: CEFEPIME 2 GM/D5W RTU 2 GM/50 ML RTUPB IV SCH ×2 (10:32→21:07)
[2018-05-04] MEDS: TIOTROPIUM BROMIDE DPI 5 CAP/KIT (18 MCG/CAP) IH SCH (10:32)
[2018-05-04] MEDS: NICOTINE 21 MG/24 HR PATCH.TD24 TD PRN (10:35)
[2018-05-04] MEDS ORDERED: PROPOFOL 1,000 MG/100 ML INFUS..BTL IV ONE (10:58)
--- NOTE | 2018-05-04 12:02 | PROGRESS NOTE E ---
Progress Note NAME: PIEDAD GILES : 1955 AGE: 62Y DATE: 05/04/2018 ROOM: 601 SUBJECTIVE: The patient is a pleasant 62-year-old female who has a past medical history of COPD. She has hypoxic hypercapnic respiratory failure, intubated, mechanically ventilated. The patient is still on the ventilator. No overnight major events. OBJECTIVE: GENERAL: The patient is lying in bed, intubated, mechanically ventilated. VITAL SIGNS: Temperature 97.7, heart rate 90, blood pressure 88/46, respiratory rate 16, saturation 94% on FiO2 of 40. HEENT: Head normocephalic/atraumatic. Pupils equal, round, reactive to light and accommodation bilaterally. Mucous membranes intact. Ears: Tympanic membranes intact bilaterally. No discharge from the ears. No discharge from the nose. NECK: Supple. No acute JVD. No thyromegaly. No lymphadenopathy. CARDIOVASCULAR: Normal S1, S2. Regular rate and rhythm. No murmur, no gallop. RESPIRATORY: Bilateral crackles, decreased air entry bilaterally. ABDOMEN: Soft, nontender. MUSCULOSKELETAL: No edema. NEUROLOGIC: Sedated. LABORATORY: White blood count 22.7, hemoglobin 11.3, hematocrit 44. Sodium 135, potassium 4.5, creatinine 0.7. ABG: pH 7.3, pCO2 of 55, pO2 of 66. ASSESSMENT AND PLAN: 1. ACUTE ON CHRONIC HYPOXIC HYPERCAPNIC RESPIRATORY FAILURE. On ventilator. 2. CHRONIC OBSTRUCTIVE PULMONARY DISEASE EXACERBATION. On ventilator and antibiotics as well as prednisone and Levaquin. 3. BIPOLAR DISORDER. MEDICAL NECESSITY: The patient is on ventilator, COPD and respiratory failure. Time spent 35 minutes. DICTATING PHYSICIAN: MARYSOL KEYES M.D. [id number] PHY#: [id number] ID: [id number] JOB#: [id number] ACCT: [id number] cc: > MITULD
--- NOTE | 2018-05-04 13:33 | Operative Report ---
Bedside Procedure - History of Present Illness History of Present Illness: PIEDAD GILES is a 62 year old female poor venous access loss L EJ cath that was placed in field limited peripheral access Indication for Procedure: poor venous access Date: 05/04/18 Surgeon: MIGUEL MAGANA - Central Line Right Consent obtained: Yes Central line pre-insertion: Sterile PPE donned, Betadine prep applied, Chloraprep applied, Sterile drapes applied Central line lumen type: Triple Anesthetic type: 1% Lidocaine Ultrasound guided: Yes Line secured with sutures: Yes Central line post-insertion: Blood return from lumens, Biopatch applied, Sutured, Sterile dressing applied, Position confirmed w/ CXR Complications: No
--- NOTE | 2018-05-04 14:04 | RADIOLOGY REPORT (SQ) ---
EXAM DESCRIPTION: CHEST SINGLE VIEW COMPLETED DATE/TIME: 05/04/2018 1:46 pm REASON FOR STUDY: Central Line Placement COMPARISON: 05/04/2018 at 0629 hours. EXAM PARAMETERS: NUMBER OF VIEWS: One view. TECHNIQUE: Single frontal radiographic view of the chest acquired. RADIATION DOSE: NA LIMITATIONS: None. FINDINGS: LUNGS AND PLEURA: Interstitial prominence. Faint density adjacent to the right cardiac evert rder. No pneumothorax. No large pleural effusion. MEDIASTINUM AND HILAR STRUCTURES: No masses. Contour normal. HEART AND VASCULAR STRUCTURES: Heart normal in size. Normal vasculature. BONES: No acute findings. HARDWARE: Central line on the right side with the tip at the level of the superior vena cava. Stable endotracheal tube and nasogastric tube. OTHER: No other significant finding. IMPRESSION: CENTRAL LINE PLACEMENT DESCRIBED WITH NO PNEUMOTHORAX. OTHERWISE NO CHANGE IN APPEAR ANCE OF THE CHEST. TECHNICAL DOCUMENTATION: JOB ID: [id number] [email or web address]- All Rights Reserved Reading location - IP/workstation name: [email or web address]
[2018-05-04] MEDS: PROPOFOL 1,000 MG/100 ML INFUS..BTL IV PRN ×2 (16:31→21:06)
[2018-05-04] MEDS: DOXEPIN HCL 25 MG CAPSULE NG SCH (21:08)
[2018-05-05] MEDS: LEVALBUTEROL HCL NEB 1.25 MG/3 ML AMPUL NEB SCH ×6 (00:41→20:52)
[2018-05-05] MEDS: NORMAL SALINE 1000 ML 1,000 ML IV PRN ×3 (02:33→23:36)
[2018-05-05] MEDS: PROPOFOL 1,000 MG/100 ML INFUS..BTL IV PRN ×4 (02:33→19:00)
[2018-05-05 04:17] LABS: ARTERIAL BLOOD BASE EXCESS 2.2 mmol/L; ARTERIAL BLOOD FIO2 40%; ARTERIAL BLOOD H2CO3 1.67 mmol/L (1.05-1.35); ARTERIAL BLOOD HCO3 29.1 mmol/L (20-24); ARTERIAL BLOOD O2 SATURATION 95.1 % (94-98); ARTERIAL BLOOD PCO2 55.6 mmHg (35-45); ARTERIAL BLOOD PH 7.34 (7.35-7.45); ARTERIAL BLOOD PO2 81.2 mmHg (80-100); ARTERIAL BLOOD TOTAL CO2 30.8 mmol/L (21-25)
[2018-05-05 04:35] LABS: ALBUMIN 2.5 g/dL (3.5-5.0); BLOOD UREA NITROGEN 24 mg/dL (7-20); CALCIUM 7.9 mg/dL (8.4-10.2); CHLORIDE 109 mmol/L (98-107); GLUCOSE 127 mg/dL (75-110); PHOSPHORUS 2.9 mg/dL (2.5-4.5)
[2018-05-05 04:37] LABS: HEMATOCRIT 33.8 % (36.0-47.0); MEAN CORPUSCULAR HEMOGLOBIN 28.9 pg (27.0-33.4); MEAN CORPUSCULAR HGB CONC 32.4 g/dL (32.0-36.0); MEAN CORPUSCULAR VOLUME 89 fl (80-97); PLATELET COUNT 250 10^3/uL (150-450); RED CELL DISTRIBUTION WIDTH 15.5 % (11.5-14.0); WHITE BLOOD COUNT 23.6 10^3/uL (4.0-10.5)
[2018-05-05 04:41] LABS: ANION GAP 2 (5-19); CARBON DIOXIDE 28 mmol/L (22-30); SODIUM 138.9 mmol/L (137-145)
[2018-05-05] MEDS: METHYLPREDNISOLONE INJ 125 MG/2 ML SDV IV SCH ×3 (05:13→21:35)
[2018-05-05] MEDS: MIDAZOLAM HCL 50 MG/100 ML RTUINJ IV PRN ×3 (05:14→23:36)
[2018-05-05] MEDS: HEPARIN SOD (PORCINE) 5,000 UNIT/ML 1 ML SYRINGE SUBCUT SCH ×3 (05:14→21:35)
[2018-05-05 05:51] LABS: ABSOLUTE LYMPHOCYTES# (MANUAL) 0.2 10^3/uL (0.5-4.7); ABSOLUTE NEUTROPHILS# (MANUAL) 23.4 10^3/uL (1.7-8.2); BASOPHILS % (MANUAL) 0 % (0-2); EOSINOPHILS % (MANUAL) 0 % (0-6); LYMPHOCYTES % (MANUAL) 1 % (13-45); MONOCYTES % (MANUAL) 0 % (3-13); PLATELET COMMENT ADEQUATE; SEGMENTED NEUTROPHILS % (MAN) 99 % (42-78); TOTAL CELLS COUNTED 100
[2018-05-05] MEDS: NYSTATIN 500000 UNIT/5 ML UDCUP PO SCH ×4 (06:00→23:49)
--- NOTE | 2018-05-05 06:42 | RADIOLOGY REPORT (SQ) ---
EXAM DESCRIPTION: XR CHEST 1 VIEW COMPLETED DATE/TME: 05/05/2018 06:00 CLINICAL HISTORY: Respiratory Distress. 62 years Female, resp failure COMPARISON: One day prior. NUMBER OF VIEWS/TECHNIQUE: 1/AP FINDINGS: Mild/moderate diffuse interstitial markings. Small blunting-effusion of the right costophrenic angle.Adequate appearing endotracheal tube. Likely adequate appearing enteric tube partially obscured. Adequate appearing right jugular central line. Normal cardiac silhouette size. No pneumothorax. Stable bony thorax. IMPRESSION: No significant change.
[2018-05-05] MEDS: LEVOFLOXACIN 750 MG/D5W RTU 750 MG/150 ML RTUPB IV SCH (08:18)
[2018-05-05] MEDS: TIOTROPIUM BROMIDE DPI 5 CAP/KIT (18 MCG/CAP) IH SCH (10:01)
[2018-05-05] MEDS: PANTOPRAZOLE SODIUM 40 MG VIAL IV SCH ×2 (10:01→21:35)
[2018-05-05] MEDS: CEFEPIME 2 GM/D5W RTU 2 GM/50 ML RTUPB IV SCH ×2 (10:01→21:36)
[2018-05-05] MEDS: NICOTINE 21 MG/24 HR PATCH.TD24 TD PRN (10:02)
[2018-05-05] MEDS: BACLOFEN 10 MG TABLET NG SCH ×2 (10:02→18:29)
[2018-05-05] MEDS: TOLTERODINE TARTRATE 1 MG TABLET NG SCH ×2 (10:02→21:34)
--- NOTE | 2018-05-05 15:02 | PROGRESS NOTE E ---
Progress Note NAME: PIEDAD GILES : 1955 AGE: 62Y DATE: 05/05/2018 ROOM: 601 SUBJECTIVE: This is a 63-year-old female who has a past medical history of COPD. The patient admitted with hypoxic, hypercarbic respiratory failure. She is intubated and mechanically ventilated. The patient is still on ventilator. She had previous intubations, 49 times, multiple intubations OBJECTIVE: GENERAL: Patient lying in bed, intubated, mechanical ventilated. VITAL SIGNS: Temperature 98.2, heart rate 100, blood pressure 97/47, respiratory rate 16, saturation is 94%. HEENT: Normocephalic, atraumatic. Pupils round, reactive to light and accommodation bilaterally. Extraocular movements intact. Ears: Tympanic membranes intact bilaterally. No discharge from the ears. No discharge from the nose. NECK: Supple. No increased JVD. No thyromegaly, no lymphadenopathy. CARDIOVASCULAR: Normal S1, S2. Regular rate and rhythm. No murmur, no gallop. RESPIRATORY: Lungs clear bilaterally. Decreased breath sound bilateraly. ABDOMEN: Soft, nontender. MUSCULOSKELETAL: No edema. NEUROLOGICAL: Awake, alert. SKIN: No rash. LABORATORY DATA: White blood count 23.6, hemoglobin 11, hematocrit 34. Sodium 138, potassium 4, creatinine is 0.7. ASSESSMENT: 1. ACUTE ON CHRONIC HYPOXIC, HYPERCARBIC RESPIRATORY FAILURE ON VENTILATOR. 2. CHRONIC OBSTRUCTIVE PULMONARY DISEASE EXACERBATION ON VENTILATOR AND ANTIBIOTICS, WELL PREDNISONE AND LEVAQUIN. 3. BIPOLAR DISORDER. PLAN: Continue antibiotics, cefepime, Levaquin. MEDICAL NECESSITY: Patient on ventilator. TIME SPENT: Twenty-five minutes. DICTATING PHYSICIAN: MARYSOL KEYES M.D. [id number] PHY#: [id number] ID: [id number] JOB#: [id number] ACCT: [id number] cc: > MITULD
[2018-05-05] MEDS: DOXEPIN HCL 25 MG CAPSULE NG SCH (21:34)
[2018-05-06] MEDS: PROPOFOL 1,000 MG/100 ML INFUS..BTL IV PRN ×5 (00:17→22:00)
[2018-05-06] MEDS: LEVALBUTEROL HCL NEB 1.25 MG/3 ML AMPUL NEB SCH ×6 (01:16→19:55)
[2018-05-06 04:20] LABS: HEMATOCRIT 33.6 % (36.0-47.0); MEAN CORPUSCULAR HEMOGLOBIN 29.1 pg (27.0-33.4); MEAN CORPUSCULAR HGB CONC 32.7 g/dL (32.0-36.0); MEAN CORPUSCULAR VOLUME 89 fl (80-97); PLATELET COUNT 235 10^3/uL (150-450); RED BLOOD COUNT 3.77 10^6/uL (3.72-5.28); WHITE BLOOD COUNT 20.7 10^3/uL (4.0-10.5)
[2018-05-06 04:37] LABS: ARTERIAL BLOOD BASE EXCESS 1.3 mmol/L; ARTERIAL BLOOD H2CO3 1.72 mmol/L (1.05-1.35); ARTERIAL BLOOD HCO3 28.4 mmol/L (20-24); ARTERIAL BLOOD O2 SATURATION 95.2 % (94-98); ARTERIAL BLOOD PH 7.32 (7.35-7.45); ARTERIAL BLOOD PO2 83.7 mmHg (80-100); ARTERIAL BLOOD TOTAL CO2 30.2 mmol/L (21-25)
[2018-05-06 04:38] LABS: ARTERIAL BLOOD FIO2 40%
[2018-05-06 04:39] LABS: BLOOD UREA NITROGEN 35 mg/dL (7-20); CALCIUM 8.1 mg/dL (8.4-10.2); GLUCOSE 121 mg/dL (75-110)
[2018-05-06 04:44] LABS: CARBON DIOXIDE 27 mmol/L (22-30); CHLORIDE 109 mmol/L (98-107); SODIUM 136.6 mmol/L (137-145)
[2018-05-06 04:50] LABS: ABSOLUTE LYMPHOCYTES# (MANUAL) 0.4 10^3/uL (0.5-4.7); ABSOLUTE MONOCYTES # (MANUAL) 0.4 10^3/uL (0.1-1.4); ABSOLUTE NEUTROPHILS# (MANUAL) 19.9 10^3/uL (1.7-8.2); BASOPHILS % (MANUAL) 0 % (0-2); EOSINOPHILS % (MANUAL) 0 % (0-6); LYMPHOCYTES % (MANUAL) 2 % (13-45); MONOCYTES % (MANUAL) 2 % (3-13); SEGMENTED NEUTROPHILS % (MAN) 96 % (42-78); TOTAL CELLS COUNTED 100
[2018-05-06 04:53] LABS: ALBUMIN 2.5 g/dL (3.5-5.0); TOXIC GRANULATION 1+; TOXIC VACUOLATION PRESENT
[2018-05-06 04:54] LABS: ANISOCYTOSIS 1+; PLATELET COMMENT ADEQUATE
[2018-05-06] MEDS: HEPARIN SOD (PORCINE) 5,000 UNIT/ML 1 ML SYRINGE SUBCUT SCH ×3 (05:39→22:39)
[2018-05-06] MEDS: METHYLPREDNISOLONE INJ 125 MG/2 ML SDV IV SCH (05:40)
[2018-05-06] MEDS: NYSTATIN 500000 UNIT/5 ML UDCUP PO SCH ×3 (05:40→17:44)
[2018-05-06 05:48] LABS: ANION GAP 1 (5-19)
[2018-05-06] MEDS: MIDAZOLAM HCL 50 MG/100 ML RTUINJ IV PRN ×2 (06:10→17:43)
[2018-05-06] MEDS: NORMAL SALINE 1000 ML 1,000 ML IV PRN ×2 (06:14→17:44)
--- NOTE | 2018-05-06 07:15 | RADIOLOGY REPORT (SQ) ---
EXAM DESCRIPTION: XR CHEST 1 VIEW COMPLETED DATE/TME: 05/06/2018 06:00 CLINICAL HISTORY: Respiratory Distress. 62 years Female, resp failure COMPARISON: One day prior. NUMBER OF VIEWS/TECHNIQUE: 1/AP FINDINGS: Increased lung volume. Small right basilar opacity-effusion.Adequate appearing endotracheal tube. Likely adequate appearing enteric tube partially obscured. Adequate appearing enteric tube with tip at the left upper abdominal quadrant. Adequate appearing right jugular central line. Normal cardiac silhouette size. No pneumothorax. Stable bony thorax. IMPRESSION: No significant change.
--- NOTE | 2018-05-06 08:01 | PDOC PROGRESS REPORT ---
Subjective Progress Note for:: 05/06/18 Subjective:: 05/03/2018 patient is still on the vent with sedation. Repeat ABG shows PCO2 of 90. Pulse oxes are improved with deep suctioning. Plan to repeat the ABG around 10 AM. Patient was started on levofloxacin and cefepime. Blood cultures sputum cultures urine cultures are requested. Patient is still in the ED was the bed is available she will be moved to the intensive care unit. At the moment patient condition is critical. 05/06/2018 patient still on mechanical ventilation with sedation she is on Versed 8 mg/h and also on diprivan 50 mcg/kg/min. She was tried to be weaned off yesterday with sedation with moderate success the plan is to try to do the weaning trial today. ABG was done this morning on 40% oxygen pH is 7.35 PCO2 is 57 PCO2 is 83 bicarb is 28 oxygen saturation is 93-94%. Patient afebrile no acute events in the last 24 hours. Chest x-ray remains the same today. Reason For Visit: ACUTE RESP FAILURE, PNEUMONIA Physical Exam Vital Signs: Temp Pulse Resp BP Pulse Ox 97.2 F 98 14 102/51 L 96 05/06/18 07:30 05/06/18 05:13 05/06/18 06:00 05/06/18 05:57 05/06/18 06:00 Intake & Output 05/05/18 05/06/18 05/07/18 06:59 06:59 06:59 Intake Total 2872 4132 Output Total 2025 1840 100 Balance 847 2292 -100 Weight 58.6 kg 60.9 kg General appearance: PRESENT: no acute distress Head exam: PRESENT: atraumatic Eye exam: PRESENT: PERRLA Mouth exam: PRESENT: dry mucosa Neck exam: ABSENT: carotid bruit, JVD, lymphadenopathy, thyromegaly Respiratory exam: PRESENT: decreased breath sounds, other - Transmitted breath sounds Cardiovascular exam: PRESENT: tachycardia Pulses: PRESENT: normal dorsalis pedis pul GI/Abdominal exam: PRESENT: normal bowel sounds, soft. ABSENT: distended, guard ing, mass, organolmegaly, rebound, tenderness Extremities exam: PRESENT: full ROM. ABSENT: calf tenderness, clubbing, pedal edema Neurological exam: PRESENT: other - Patient is intubated under sedation Psychiatric exam: PRESENT: other - pt is intubated Results Laboratory Results: 05/06/18 04:08 05/06/18 04:08 05/06/18 05/06/18 05/06/18 04:08 04:08 04:08 WBC 20.7 H RBC 3.77 Hgb 11.0 L Hct 33.6 L MCV 89 MCH 29.1 MCHC 32.7 RDW 16.0 H Plt Count 235 Seg Neutrophils % Not Reportable Lymphocytes % Not Reportable Monocytes % Not Reportable Eosinophils % Not Reportable Basophils % Not Reportable Absolute Neutrophils Not Reportable Absolute Lymphocytes Not Reportable Absolute Monocytes Not Reportable Absolute Eosinophils Not Reportable Absolute Basophils Not Reportable Carbonic Acid HCO3/H2CO3 Ratio ABG pH ABG pCO2 ABG pO2 ABG HCO3 ABG O2 Saturation ABG Base Excess FiO2 Sodium 136.6 L Cancelled Potassium 4.0 Cancelled Chloride 109 H Cancelled Carbon Dioxide 27 Cancelled Anion Gap 1 L Cancelled BUN 35 H Cancelled Creatinine 0.70 Cancelled Est GFR ( Amer) > 60 Cancelled Est GFR (Non-Af Amer) > 60 Cancelled Glucose 121 H Cancelled Calcium 8.1 L Cancelled Phosphorus 3.0 Cancelled Magnesium 2.4 H Albumin 2.5 L Cancelled 05/06/18 04:16 WBC RBC Hgb Hct MCV MCH MCHC RDW Plt Count Seg Neutrophils % Lymphocytes % Monocytes % Eosinophils % Basophils % Absolute Neutrophils Absolute Lymphocytes Absolute Monocytes Absolute Eosinophils Absolute Basophils Carbonic Acid 1.72 H HCO3/H2CO3 Ratio 16:1 ABG pH 7.32 L ABG pCO2 57.0 H ABG pO2 83.7 ABG HCO3 28.4 H ABG O2 Saturation 95.2 ABG Base Excess 1.3 FiO2 40% Sodium Potassium Chloride Carbon Dioxide Anion Gap BUN Creatinine Est GFR ( Amer) Est GFR (Non-Af Amer) Glucose Calcium Phosphorus Magnesium Albumin 05/03/18 09:30 Catheterized Urine Urine Culture - Final NO GROWTH 2 DAYS 05/03/18 05/03/18 04:10 04:10 Troponin I < 0.012 NT-Pro-B Natriuret Pep 259 Impressions: Chest CT 05/03/18 00:00 IMPRESSION: Limited airspace disease in the anterior right upper lobe. Pneumonia versus atelectasis. Chest X-Ray 05/06/18 06:00 IMPRESSION: No significant change. Assessment & Plan - Diagnosis (1) Acute and chronic respiratory failure with hypercapnia Is this a current diagnosis for this admission?: Yes Plan: 05/03/2018-patient came in with PCO2 of 90. She was intubated properly. She was admitted for similar complaints and had at least 49 intubations before. Plan is to continue the mechanical ventilation with sedation, pulmonary consult was requested. Be going to do the daily ABGs. On IV Solu-Medrol 125 mg every 8 hours, nebulizer treatments, started on cefepime and levofloxacin. Chest x-ray did not show any pneumonia. Again condition is critical V going to follow her closely. 05/06/2018 patient was admitted with acute on chronic respiratory failure with hypercapnia hypercapnia is resolving sputum culture is positive for gram- positive cocci in clusters she is on cefepime and Levaquin afebrile in the last 24-48 hours. ABG done today shows pH of 7.32 PCO2 is 57 hypercapnia is resolving hypoxia is improving. We are going to try to wean her off today. On board. Patient was admitted several times for the same problem she was admitted with respiratory failure and intubated 49 times prior to this admission. (2) Bipolar disorder Is this a current diagnosis for this admission?: Yes Plan: 05/03/2018 patient has history of bipolar disorder she is on few home medications. Patient is presently under sedation with Versed. P.o. medications are on hold. 05/06/2018 patient has history of bipolar disorder she is on her Celexa also on Abilify. Presently she is on the ventilator so the medications are on hold. Patient is receiving Versed drip along with diprivan (3) COPD with acute exacerbation Is this a current diagnosis for this admission?: Yes Plan: 05/03/2018-patient has history of chronic COPD on home oxygen. COPD exacerbation may be secondary to chronic smoking/atypical pneumonitis. X-rays also showing pulmonary edema. Requested for BNP. 05/06/2018-patient has history of chronic COPD on home oxygen COPD secondary to chronic smoking and CT scan shows atypical pneumonitis sputum cultures are positive for gram-positive cocci in clusters on cefepime and levofloxacin waiting for the sensitivity report. Plan to use to extubate the patient today for possible. She does not Xopenex ipratropium nebulizations and also on Spiriva. She is receiving IV Solu-Medrol 125 mg every 8 hours and I decreased the Solu-Medrol dose of 40 mg every 8 hours. - Time Time Spent with patient: 15-24 minutes Medications reviewed and adjusted accordingly: Yes Anticipated discharge: Home
[2018-05-06] MEDS: PANTOPRAZOLE SODIUM 40 MG VIAL IV SCH ×2 (11:38→22:39)
[2018-05-06] MEDS: CEFEPIME 2 GM/D5W RTU 2 GM/50 ML RTUPB IV SCH ×2 (11:38→22:38)
[2018-05-06] MEDS: TIOTROPIUM BROMIDE DPI 5 CAP/KIT (18 MCG/CAP) IH SCH (11:39)
[2018-05-06] MEDS: LEVOFLOXACIN 750 MG/D5W RTU 750 MG/150 ML RTUPB IV SCH (11:39)
[2018-05-06] MEDS: NICOTINE 21 MG/24 HR PATCH.TD24 TD PRN (11:41)
[2018-05-06] MEDS: BACLOFEN 10 MG TABLET NG SCH ×2 (11:42→17:45)
[2018-05-06] MEDS: TOLTERODINE TARTRATE 1 MG TABLET NG SCH ×2 (11:42→22:37)
[2018-05-06] MEDS: METHYLPREDNISOLONE INJ 40 MG/1 ML SDV IV SCH ×2 (14:30→22:39)
[2018-05-06] MEDS: CITALOPRAM HYDROBROMIDE 20 MG TABLET PO SCH (14:31)
[2018-05-06] MEDS: ARIPIPRAZOLE 5 MG TABLET PO SCH (14:35)
[2018-05-06] MEDS: DOXEPIN HCL 25 MG CAPSULE NG SCH (22:37)
[2018-05-07] MEDS: MIDAZOLAM HCL 50 MG/100 ML RTUINJ IV PRN
[2018-05-07] MEDS: LEVALBUTEROL HCL NEB 1.25 MG/3 ML AMPUL NEB SCH ×6 (00:36→19:44)
[2018-05-07] MEDS: NYSTATIN 500000 UNIT/5 ML UDCUP PO SCH ×5 (02:54→17:42)
[2018-05-07] MEDS: PROPOFOL 1,000 MG/100 ML INFUS..BTL IV PRN ×2 (03:27→08:08)
[2018-05-07] MEDS: NORMAL SALINE 1000 ML 1,000 ML IV PRN (04:00)
[2018-05-07 06:00] LABS: HEMATOCRIT 35.2 % (36.0-47.0); HEMOGLOBIN 11.4 g/dL (12.0-15.5); MEAN CORPUSCULAR HEMOGLOBIN 28.9 pg (27.0-33.4); MEAN CORPUSCULAR HGB CONC 32.5 g/dL (32.0-36.0); MEAN CORPUSCULAR VOLUME 89 fl (80-97); PLATELET COUNT 211 10^3/uL (150-450); RED BLOOD COUNT 3.96 10^6/uL (3.72-5.28); WHITE BLOOD COUNT 14.9 10^3/uL (4.0-10.5)
[2018-05-07] MEDS: METHYLPREDNISOLONE INJ 40 MG/1 ML SDV IV SCH ×3 (06:04→21:18)
[2018-05-07] MEDS: HEPARIN SOD (PORCINE) 5,000 UNIT/ML 1 ML SYRINGE SUBCUT SCH ×3 (06:05→21:22)
[2018-05-07 06:13] LABS: ARTERIAL BLOOD FIO2 35%; ARTERIAL BLOOD H2CO3 1.78 mmol/L (1.05-1.35); ARTERIAL BLOOD HCO3 28.5 mmol/L (20-24); ARTERIAL BLOOD O2 SATURATION 96.6 % (94-98); ARTERIAL BLOOD PCO2 59.2 mmHg (35-45); ARTERIAL BLOOD PO2 97.2 mmHg (80-100); ARTERIAL BLOOD TOTAL CO2 30.3 mmol/L (21-25)
[2018-05-07 06:23] LABS: ALANINE AMINOTRANSFERASE 19 U/L (9-52); ALBUMIN 2.5 g/dL (3.5-5.0); ALKALINE PHOSPHATASE 42 U/L (38-126); ASPARTATE AMINO TRANSFERASE 13 U/L (14-36); BILIRUBIN,DIRECT 0.3 mg/dL (0.0-0.4); BILIRUBIN,TOTAL 0.3 mg/dL (0.2-1.3); BLOOD UREA NITROGEN 37 mg/dL (7-20); CALCIUM 7.8 mg/dL (8.4-10.2); GLUCOSE 116 mg/dL (75-110); POTASSIUM 4.2 mmol/L (3.6-5.0); TOTAL PROTEIN 4.6 g/dL (6.3-8.2)
[2018-05-07 06:28] LABS: CARBON DIOXIDE 30 mmol/L (22-30); CHLORIDE 107 mmol/L (98-107); SODIUM 137.2 mmol/L (137-145)
[2018-05-07 06:30] LABS: ANION GAP 0 (5-19)
[2018-05-07 06:34] LABS: ABSOLUTE LYMPHOCYTES# (MANUAL) 0.1 10^3/uL (0.5-4.7); ABSOLUTE NEUTROPHILS# (MANUAL) 14.8 10^3/uL (1.7-8.2); ANISOCYTOSIS 1+; BASOPHILS % (MANUAL) 0 % (0-2); EOSINOPHILS % (MANUAL) 0 % (0-6); LYMPHOCYTES % (MANUAL) 1 % (13-45); MONOCYTES % (MANUAL) 0 % (3-13); SCHISTOCYTES SLIGHT; SEGMENTED NEUTROPHILS % (MAN) 99 % (42-78); TOTAL CELLS COUNTED 100; TOXIC GRANULATION SLIGHT
[2018-05-07 06:35] LABS: PLATELET COMMENT ADEQUATE; PLATELET LARGE PRESENT
[2018-05-07] MEDS ORDERED: NORMAL SALINE 1000 ML 1,000 ML IV PRN (08:25)
--- NOTE | 2018-05-07 08:26 | RADIOLOGY REPORT (SQ) ---
EXAM DESCRIPTION: CHEST SINGLE VIEW COMPLETED DATE/TIME: 05/07/2018 6:33 am REASON FOR STUDY: resp failure COMPARISON: 05/06/2018 EXAM PARAMETERS: NUMBER OF VIEWS: One view. TECHNIQUE: Single frontal radiographic view of the chest acquired. RADIATION DOSE: NA LIMITATIONS: None. FINDINGS: LUNGS AND PLEURA: Lungs demonstrate hyperinflation and chronic interstitial changes, stabl e. Stable minimal right basilar opacification. No new airspace disease. Blunting of the bilateral costophrenic angles, likely secondary to small effusions. No pneumothorax. MEDIASTINUM AND HILAR STRUCTURES: No discrete mass. HEART AND VASCULAR STRUCTURES: Stable size. BONES: No acute osseous abnormality. HARDWARE: Endotracheal tube tip overlies midthoracic trachea. Enteric tube side port at GE junction. Right internal jugular central venous catheter tip overlies right atrium. OTHER: No other significant finding. IMPRESSION: Minimal persistent right basilar opacity and likely small effusion without evidence of n ew cardiopulmonary process. Enteric tube tip side port at GE junction. Consider advancing 5 to 10 cm. TECHNICAL DOCUMENTATION: JOB ID: [id number] [email or web address]- All Rights Reserved Reading location - IP/workstation name: [email or web address]
--- NOTE | 2018-05-07 08:27 | PDOC PROGRESS REPORT ---
Subjective Progress Note for:: 05/07/18 Subjective:: 05/03/2018 patient is still on the vent with sedation. Repeat ABG shows PCO2 of 90. Pulse oxes are improved with deep suctioning. Plan to repeat the ABG around 10 AM. Patient was started on levofloxacin and cefepime. Blood cultures sputum cultures urine cultures are requested. Patient is still in the ED was the bed is available she will be moved to the intensive care unit. At the moment patient condition is critical. 05/06/2018 patient still on mechanical ventilation with sedation she is on Versed 8 mg/h and also on diprivan 50 mcg/kg/min. She was tried to be weaned off yesterday with sedation with moderate success the plan is to try to do the weaning trial today. ABG was done this morning on 40% oxygen pH is 7.35 PCO2 is 57 PCO2 is 83 bicarb is 28 oxygen saturation is 93-94%. Patient afebrile no acute events in the last 24 hours. Chest x-ray remains the same today. 05/07/2018-no acute events in the last 24 hours. Weaning of process was part ially successful yesterday. Patient is off the ventilator for several hours yesterday. She becomes tired and has a difficulty in breathing so placed back on a ventilator. ABG done this morning shows pH of 7.3 PCO2 59 PaO2 97 bicarb is 28.5 oxygen saturation is 96%. Patient is afebrile. Blood pressure is 101/51. Pulmonary is on board. Patient is getting her home medications via NG tube. We are going to again try to do the trial of extubation today. Patient is comfortably sleeping in the bed she is on Versed drip 2 mg/h on diprivan 50 mcg/kg/min. Reason For Visit: ACUTE RESP FAILURE, PNEUMONIA Physical Exam Vital Signs: Temp Pulse Resp BP Pulse Ox 97.6 F 87 17 101/51 L 96 05/07/18 06:00 05/07/18 07:35 05/07/18 07:35 05/07/18 05:57 05/07/18 07:35 Intake & Output 05/06/18 05/07/18 05/08/18 06:59 06:59 06:59 Intake Total 4132 3463 33 Output Total 1840 2225 Balance 2292 1238 33 Weight 60.9 kg 61.7 kg General appearance: PRESENT: no acute distress, other - Still intubated under sedation. Head exam: PRESENT: atraumatic Eye exam: PRESENT: PERRLA Mouth exam: PRESENT: moist Neck exam: ABSENT: carotid bruit, JVD, lymphadenopathy, thyromegaly Respiratory exam: PRESENT: decreased breath sounds Pulses: PRESENT: normal dorsalis pedis pul GI/Abdominal exam: PRESENT: normal bowel sounds, soft. ABSENT: distended, guarding, mass, organolmegaly, rebound, tenderness Extremities exam: PRESENT: full ROM. ABSENT: calf tenderness, clubbing, pedal edema Neurological exam: PRESENT: other - Patient is under sedation. Psychiatric exam: PRESENT: other - Patient is still under mechanical ventilation , under sedation. Results Laboratory Results: 05/07/18 05:30 05/07/18 05:30 05/07/18 05/07/18 05/07/18 05:30 05:30 05:30 WBC 14.9 H RBC 3.96 Hgb 11.4 L Hct 35.2 L MCV 89 MCH 28.9 MCHC 32.5 RDW 16.0 H Plt Count 211 Seg Neutrophils % Not Reportable Lymphocytes % Not Reportable Monocytes % Not Reportable Eosinophils % Not Reportable Basophils % Not Reportable Absolute Neutrophils Not Reportable Absolute Lymphocytes Not Reportable Absolute Monocytes Not Reportable Absolute Eosinophils Not Reportable Absolute Basophils Not Reportable Carbonic Acid 1.78 H HCO3/H2CO3 Ratio 16:1 ABG pH 7.30 L ABG pCO2 59.2 H ABG pO2 97.2 ABG HCO3 28.5 H ABG O2 Saturation 96.6 ABG Base Excess 1.0 FiO2 35% Sodium 137.2 Potassium 4.2 Chloride 107 Carbon Dioxide 30 Anion Gap 0 L BUN 37 H Creatinine 0.68 Est GFR ( Amer) > 60 Est GFR (Non-Af Amer) > 60 Glucose 116 H Calcium 7.8 L Magnesium 2.4 H Total Bilirubin 0.3 AST 13 L ALT 19 Alkaline Phosphatase 42 Total Protein 4.6 L Albumin 2.5 L 05/03/18 11:31 Sputum Gram Stain - Final 05/03/18 11:31 Sputum Sputum Culture - Final Staphylococcus Aureus Yeast, Not Tamra Albicans Greatly Reduced Normal Didi 05/03/18 05/03/18 04:10 04:10 Troponin I < 0.012 NT-Pro-B Natriuret Pep 259 Impressions: Chest CT 05/03/18 00:00 IMPRESSION: Limited airspace disease in the anterior right upper lobe. Pneumo celeste versus atelectasis. Assessment & Plan - Diagnosis (1) Acute and chronic respiratory failure with hypercapnia Is this a current diagnosis for this admission?: Yes Plan: 05/03/2018-patient came in with PCO2 of 90. She was intubated properly. She was admitted for similar complaints and had at least 49 intubations before. Plan is to continue the mechanical ventilation with sedation, pulmonary consult was requested. Be going to do the daily ABGs. On IV Solu-Medrol 125 mg every 8 hours, nebulizer treatments, started on cefepime and levofloxacin. Chest x-ray did not show any pneumonia. Again condition is critical V going to follow her closely. 05/06/2018 patient was admitted with acute on chronic respiratory failure with hypercapnia hypercapnia is resolving sputum culture is positive for gram- positive cocci in clusters she is on cefepime and Levaquin afebrile in the last 24-48 hours. ABG done today shows pH of 7.32 PCO2 is 57 hypercapnia is resolving hypoxia is improving. We are going to try to wean her off today. On board. Patient was admitted several times for the same problem she was admitted with respiratory failure and intubated 49 times prior to this admission. 05/07/2018-patient is admitted with acute on chronic respiratory failure with hypercapnia and hypoxia. Hypercapnia is resolving hypoxia is improved. Sputum cultures came back with Staphylococcus aureus. Patient is on cefepime. Patient is afebrile for the last 24 hours. ABG done this morning pH is 7.3/PCO2 59/bicarb is 28.5. Oxygen saturation is 96%. Plan is to wean her off from the vent. (2) Bipolar disorder Is this a current diagnosis for this admission?: Yes Plan: 05/03/2018 patient has history of bipolar disorder she is on few home medications. Patient is presently under sedation with Versed. P.o. medications are on hold. 05/06/2018 patient has history of bipolar disorder she is on her Celexa also on Abilify. Presently she is on the ventilator so the medications are on hold. Patient is receiving Versed drip along with diprivan 05/07/2018-patient history of bipolar disorder she is on Celexa and also on Abilify she is getting those medications via NG tube. (3) COPD with acute exacerbation Is this a current diagnosis for this admission?: Yes Plan: 05/03/2018-patient has history of chronic COPD on home oxygen. COPD exacerbation may be secondary to chronic smoking/atypical pneumonitis. X-rays also showing pulmonary edema. Requested for BNP. 05/06/2018-patient has history of chronic COPD on home oxygen COPD secondary to chronic smoking and CT scan shows atypical pneumonitis sputum cultures are positive for gram-positive cocci in clusters on cefepime and levofloxacin waiting for the sensitivity report. Plan to use to extubate the patient today for possible. She getting Xopenex,ipratropium nebulizations and also on Spi marquise. She is receiving IV Solu-Medrol 125 mg every 8 hours and I decreased the Solu-Medrol dose of 40 mg every 8 hours. 05/07/2018 patient has a history of COPD secondary to chronic smoking and sputum culture positive for staph aureus on cefepime time. She is also on IV Solu- Medrol 40 mg daily 8 hours. Getting Xopenex ipratropium nebulizations also on Spiriva. Plan is to continue the present management. (4) Smoker Is this a current diagnosis for this admission?: Yes Plan: 05/07/2018 patient history of chronic smoking we are going to put her on nicotine patch 21 mg daily. - Time Time Spent with patient: 15-24 minutes Medications reviewed and adjusted accordingly: Yes Anticipated discharge: Home
[2018-05-07] MEDS: TOLTERODINE TARTRATE 1 MG TABLET NG SCH ×2 (11:49→23:38)
[2018-05-07] MEDS: ARIPIPRAZOLE 5 MG TABLET PO SCH (11:49)
[2018-05-07] MEDS: CITALOPRAM HYDROBROMIDE 20 MG TABLET PO SCH (11:49)
[2018-05-07] MEDS: BACLOFEN 10 MG TABLET NG SCH ×2 (11:49→17:41)
[2018-05-07] MEDS: CEFEPIME 2 GM/D5W RTU 2 GM/50 ML RTUPB IV SCH ×2 (11:50→21:24)
[2018-05-07] MEDS: PANTOPRAZOLE SODIUM 40 MG VIAL IV SCH ×2 (11:50→21:18)
[2018-05-07] MEDS: TIOTROPIUM BROMIDE DPI 5 CAP/KIT (18 MCG/CAP) IH SCH (11:50)
[2018-05-07] MEDS ORDERED: LORAZEPAM INJ 2 MG/1 ML VIAL ONE (23:31)
[2018-05-07] MEDS: DOXEPIN HCL 25 MG CAPSULE NG SCH (23:38)
[2018-05-07] MEDS: LORAZEPAM INJ 2 MG/1 ML VIAL IV PRN (23:42)
[2018-05-08] MEDS: LEVALBUTEROL HCL NEB 1.25 MG/3 ML AMPUL NEB SCH ×6 (00:46→21:20)
[2018-05-08 04:44] LABS: HEMOGLOBIN 12.7 g/dL (12.0-15.5); MEAN CORPUSCULAR HEMOGLOBIN 29.3 pg (27.0-33.4); MEAN CORPUSCULAR HGB CONC 33.4 g/dL (32.0-36.0); MEAN CORPUSCULAR VOLUME 88 fl (80-97); PLATELET COUNT 212 10^3/uL (150-450); RED BLOOD COUNT 4.33 10^6/uL (3.72-5.28)
[2018-05-08 05:01] LABS: ABSOLUTE LYMPHOCYTES# (MANUAL) 0.5 10^3/uL (0.5-4.7); ABSOLUTE MONOCYTES # (MANUAL) 0.5 10^3/uL (0.1-1.4); ABSOLUTE NEUTROPHILS# (MANUAL) 16.9 10^3/uL (1.7-8.2); BASOPHILS % (MANUAL) 0 % (0-2); EOSINOPHILS % (MANUAL) 0 % (0-6); LYMPHOCYTES % (MANUAL) 3 % (13-45); MONOCYTES % (MANUAL) 3 % (3-13); SEGMENTED NEUTROPHILS % (MAN) 94 % (42-78); TOTAL CELLS COUNTED 100
[2018-05-08 05:02] LABS: ALANINE AMINOTRANSFERASE 27 U/L (9-52); ALKALINE PHOSPHATASE 47 U/L (38-126); ANISOCYTOSIS 1+; ASPARTATE AMINO TRANSFERASE 27 U/L (14-36); BILIRUBIN,DIRECT 0.2 mg/dL (0.0-0.4); BILIRUBIN,TOTAL 0.7 mg/dL (0.2-1.3); BLOOD UREA NITROGEN 40 mg/dL (7-20); CALCIUM 8.1 mg/dL (8.4-10.2); GLUCOSE 102 mg/dL (75-110); PLATELET COMMENT ADEQUATE; POTASSIUM 3.9 mmol/L (3.6-5.0); TOTAL PROTEIN 5.2 g/dL (6.3-8.2); TOXIC VACUOLATION PRESENT
[2018-05-08] MEDS: METHYLPREDNISOLONE INJ 40 MG/1 ML SDV IV SCH ×3 (05:06→21:48)
[2018-05-08 05:07] LABS: CARBON DIOXIDE 33 mmol/L (22-30); CHLORIDE 103 mmol/L (98-107); SODIUM 136.3 mmol/L (137-145)
[2018-05-08] MEDS: NYSTATIN 500000 UNIT/5 ML UDCUP PO SCH ×3 (05:07→17:03)
[2018-05-08] MEDS: HEPARIN SOD (PORCINE) 5,000 UNIT/ML 1 ML SYRINGE SUBCUT SCH ×3 (05:11→21:48)
[2018-05-08 05:23] LABS: ANION GAP 0 (5-19)
[2018-05-08 05:33] LABS: ARTERIAL BLOOD BASE EXCESS 5.9 mmol/L; ARTERIAL BLOOD H2CO3 1.64 mmol/L (1.05-1.35); ARTERIAL BLOOD HCO3 32.3 mmol/L (20-24); ARTERIAL BLOOD O2 SATURATION 89.4 % (94-98); ARTERIAL BLOOD PCO2 54.5 mmHg (35-45); ARTERIAL BLOOD PH 7.39 (7.35-7.45); ARTERIAL BLOOD PO2 57.9 mmHg (80-100)
[2018-05-08 05:34] LABS: ARTERIAL BLOOD FIO2 30%
--- NOTE | 2018-05-08 07:50 | RADIOLOGY REPORT (SQ) ---
EXAM DESCRIPTION: X-ray single view chest. CLINICAL HISTORY: 62 years Female, resp failure COMPARISON: 05/07/2018 and 05/06/2018 TECHNIQUE: Single portable view of the chest performed on 05/08/2018 at 5:55 AM FINDINGS: The lungs are well expanded and are clear. There is trace residual blunting of the right lateral costophrenic sulcus. There is no evidence of a pneumothorax. The cardiac silhouette is normal in size and configuration. The mediastinal contours are normal. No acute osseous abnormality is identified. No focal soft tissue abnormalities are seen. Lines and tubes: The right IJ central venous catheter tip overlies the region of the superior vena cava. There has been interval removal of the endotracheal tube and feeding tube. IMPRESSION: 1. Interval removal of the endotracheal tube and feeding tube. 2. Trace residual blunting of the right lateral costophrenic sulcus. 3. Stable right IJ central venous catheter.
--- NOTE | 2018-05-08 08:18 | PDOC PROGRESS REPORT ---
Subjective Progress Note for:: 05/08/18 Subjective:: 05/03/2018 patient is still on the vent with sedation. Repeat ABG shows PCO2 of 90. Pulse oxes are improved with deep suctioning. Plan to repeat the ABG around 10 AM. Patient was started on levofloxacin and cefepime. Blood cultures sputum cultures urine cultures are requested. Patient is still in the ED was the bed is available she will be moved to the intensive care unit. At the moment patient condition is critical. 05/06/2018 patient still on mechanical ventilation with sedation she is on Versed 8 mg/h and also on diprivan 50 mcg/kg/min. She was tried to be weaned off yesterday with sedation with moderate success the plan is to try to do the weaning trial today. ABG was done this morning on 40% oxygen pH is 7.35 PCO2 is 57 PCO2 is 83 bicarb is 28 oxygen saturation is 93-94%. Patient afebrile no acute events in the last 24 hours. Chest x-ray remains the same today. 05/07/2018-no acute events in the last 24 hours. Weaning of process was part ially successful yesterday. Patient is off the ventilator for several hours yesterday. She becomes tired and has a difficulty in breathing so placed back on a ventilator. ABG done this morning shows pH of 7.3 PCO2 59 PaO2 97 bicarb is 28.5 oxygen saturation is 96%. Patient is afebrile. Blood pressure is 101/51. Pulmonary is on board. Patient is getting her home medications via NG tube. We are going to again try to do the trial of extubation today. Patient is comfortably sleeping in the bed she is on Versed drip 2 mg/h on diprivan 50 mcg/kg/min. 05/08/2018-patient was successfully extubated yesterday. She is on BiPAP right now. Pulse ox is 98% on 3 L. Afebrile. No acute events in the last 24 hours. ABG done on 30% shows pH of 7.39/PO2 54 PCO2 58 bicarb 32 pulse ox is 89%. Reason For Visit: ACUTE RESP FAILURE, PNEUMONIA Physical Exam Vital Signs: Temp Pulse Resp BP Pulse Ox 98.1 F 97 16 149/82 H 98 05/08/18 04:56 05/08/18 07:39 05/08/18 07:39 05/08/18 06:00 05/08/18 07:39 Intake & Output 05/07/18 05/08/18 05/09/18 06:59 06:59 06:59 Intake Total 3513 130 Output Total 2228 3240 Balance 1288 -3110 Weight 61.7 kg 59.7 kg General appearance: PRESENT: no acute distress Eye exam: PRESENT: PERRLA Mouth exam: PRESENT: moist Neck exam: ABSENT: carotid bruit, JVD, lymphadenopathy, thyromegaly Respiratory exam: PRESENT: crackles, decreased breath sounds Cardiovascular exam: PRESENT: tachycardia GI/Abdominal exam: PRESENT: normal bowel sounds, soft. ABSENT: distended, guarding, mass, organolmegaly, rebound, tenderness Neurological exam: PRESENT: alert, awake, oriented to person, oriented to place, oriented to time, oriented to situation, CN II-XII grossly intact. ABSENT: motor sensory deficit Psychiatric exam: PRESENT: appropriate affect, normal mood. ABSENT: homicidal ideation, suicidal ideation Results Laboratory Results: 05/08/18 04:20 05/08/18 04:20 05/08/18 05/08/18 05/08/18 04:20 04:20 04:20 WBC 18.0 H RBC 4.33 Hgb 12.7 Hct 38.0 MCV 88 MCH 29.3 MCHC 33.4 RDW 16.0 H Plt Count 212 Seg Neutrophils % Not Reportable Lymphocytes % Not Reportable Monocytes % Not Reportable Eosinophils % Not Reportable Basophils % Not Reportable Absolute Neutrophils Not Reportable Absolute Lymphocytes Not Reportable Absolute Monocytes Not Reportable Absolute Eosinophils Not Reportable Absolute Basophils Not Reportable Carbonic Acid Cancelled HCO3/H2CO3 Ratio Cancelled ABG pH Cancelled ABG pCO2 Cancelled ABG pO2 Cancelled ABG HCO3 Cancelled ABG O2 Saturation Cancelled ABG Base Excess Cancelled FiO2 Cancelled Sodium 136.3 L Potassium 3.9 Chloride 103 Carbon Dioxide 33 H Anion Gap 0 L BUN 40 H Creatinine 0.69 Est GFR ( Amer) > 60 Est GFR (Non-Af Amer) > 60 Glucose 102 Calcium 8.1 L Magnesium 2.3 Total Bilirubin 0.7 AST 27 ALT 27 Alkaline Phosphatase 47 Total Protein 5.2 L Albumin 3.0 L 05/08/18 05:20 WBC RBC Hgb Hct MCV MCH MCHC RDW Plt Count Seg Neutrophils % Lymphocytes % Monocytes % Eosinophils % Basophils % Absolute Neutrophils Absolute Lymphocytes Absolute Monocytes Absolute Eosinophils Absolute Basophils Carbonic Acid 1.64 H HCO3/H2CO3 Ratio 19:1 ABG pH 7.39 ABG pCO2 54.5 H ABG pO2 57.9 L ABG HCO3 32.3 H ABG O2 Saturation 89.4 L ABG Base Excess 5.9 FiO2 30% Sodium Potassium Chloride Carbon Dioxide Anion Gap BUN Creatinine Est GFR ( Amer) Est GFR (Non-Af Amer) Glucose Calcium Magnesium Total Bilirubin AST ALT Alkaline Phosphatase Total Protein Albumin 05/03/18 05/03/18 04:10 04:10 Troponin I < 0.012 NT-Pro-B Natriuret Pep 259 Impressions: Chest CT 05/03/18 00:00 IMPRESSION: Limited airspace disease in the anterior right upper lobe. Pneumonia versus atelectasis. Chest X-Ray 05/08/18 07:45 IMPRESSION: 1. Interval removal of the endotracheal tube and feeding tube. 2. Trace residual blunting of the right lateral costophrenic sulcus. 3. Stable right IJ central venous catheter. Assessment & Plan - Diagnosis (1) Acute and chronic respiratory failure with hypercapnia Is this a current diagnosis for this admission?: Yes Plan: 05/03/2018-patient came in with PCO2 of 90. She was intubated properly. She was admitted for similar complaints and had at least 49 intubations before. Plan is to continue the mechanical ventilation with sedation, pulmonary consult was requested. Be going to do the daily ABGs. On IV Solu-Medrol 125 mg every 8 hours, nebulizer treatments, started on cefepime and levofloxacin. Chest x-ray did not show any pneumonia. Again condition is critical V going to follow her closely. 05/06/2018 patient was admitted with acute on chronic respiratory failure with hypercapnia hypercapnia is resolving sputum culture is positive for gram- positive cocci in clusters she is on cefepime and Levaquin afebrile in the last 24-48 hours. ABG done today shows pH of 7.32 PCO2 is 57 hypercapnia is resolving hypoxia is improving. We are going to try to wean her off today. On board. Patient was admitted several times for the same problem she was admitted with respiratory failure and intubated 49 times prior to this admission. 05/07/2018-patient is admitted with acute on chronic respiratory failure with hy percapnia and hypoxia. Hypercapnia is resolving hypoxia is improved. Sputum cultures came back with Staphylococcus aureus. Patient is on cefepime. Patient is afebrile for the last 24 hours. ABG done this morning pH is 7.3/PCO2 59/bicarb is 28.5. Oxygen saturation is 96%. Plan is to wean her off from the vent. 05/08/2012-patient was admitted with acute on chronic respiratory failure with hypoxia and hypercapnia. Successfully extubated. Doing well on BiPAP. Sputum cultures came back positive for staph aureus. Patient on cefepime. Afebrile for the last 48-72 hours. Patient is presently on nebulizer treatments, IV Solu-Medrol 40 mg every 8 hours. On BiPAP 30%. Be going to ask for the CPT treatment. Request for the labs tomorrow. Decrease the Solu-Medrol to every 12 hours. I think patient is stable enough to go to [facility]. (2) Bipolar disorder Is this a current diagnosis for this admission?: Yes Plan: 05/03/2018 patient has history of bipolar disorder she is on few home medications. Patient is presently under sedation with Versed. P.o. medications are on hold. 05/06/2018 patient has history of bipolar disorder she is on her Celexa also on Abilify. Presently she is on the ventilator so the medications are on hold. Patient is receiving Versed drip along with diprivan 05/07/2018-patient history of bipolar disorder she is on Celexa and also on Abilify she is getting those medications via NG tube. 05/08/2018-patient has history of bipolar disorder she was on Celexa and Abilify at home those were restarted yesterday. Patient is doing well. (3) COPD with acute exacerbation Is this a current diagnosis for this admission?: Yes Plan: 05/03/2018-patient has history of chronic COPD on home oxygen. COPD exacerbation may be secondary to chronic smoking/atypical pneumonitis. X-rays also showing pulmonary edema. Requested for BNP. 05/06/2018-patient has history of chronic COPD on home oxygen COPD secondary to chronic smoking and CT scan shows atypical pneumonitis sputum cultures are positive for gram-positive cocci in clusters on cefepime and levofloxacin waiting for the sensitivity report. Plan to use to extubate the patient today for possible. She getting Xopenex,ipratropium nebulizations and also on Spiriva. She is receiving IV Solu-Medrol 125 mg every 8 hours and I decreased the Solu-Medrol dose of 40 mg every 8 hours. 05/07/2018 patient has a history of COPD secondary to chronic smoking and sputum culture positive for staph aureus on cefepime time. She is also on IV Solu- Medrol 40 mg daily 8 hours. Getting Xopenex ipratropium nebulizations also on Spiriva. Plan is to continue the present management. 05/08/2018-patient has history of COPD secondary to chronic smoking. Sputum culture positive for staph aureus. On IV Solu-Medrol every 8 hours. She is on a Xopenex, ipratropium, Spiriva. Plan is to decrease the Solu-Medrol to 40 mg every 12 hours. (4) Smoker Is this a current diagnosis for this admission?: Yes - Time Time Spent with patient: 15-24 minutes Smoking Cessation Education: over 10 minutes Medications reviewed and adjusted accordingly: Yes Anticipated discharge: Home
[2018-05-08] MEDS: PANTOPRAZOLE SODIUM 40 MG VIAL IV SCH ×2 (09:37→21:46)
[2018-05-08] MEDS: TIOTROPIUM BROMIDE DPI 5 CAP/KIT (18 MCG/CAP) IH SCH (09:37)
[2018-05-08] MEDS: TOLTERODINE TARTRATE 1 MG TABLET NG SCH ×2 (09:38→21:46)
[2018-05-08] MEDS: CEFEPIME 2 GM/D5W RTU 2 GM/50 ML RTUPB IV SCH ×2 (09:38→21:46)
[2018-05-08] MEDS: ARIPIPRAZOLE 5 MG TABLET PO SCH (09:38)
[2018-05-08] MEDS: CITALOPRAM HYDROBROMIDE 20 MG TABLET PO SCH (09:38)
[2018-05-08] MEDS: BACLOFEN 10 MG TABLET NG SCH ×2 (09:38→17:03)
[2018-05-08] MEDS: LORAZEPAM INJ 2 MG/1 ML VIAL IV PRN (15:02)
[2018-05-08] MEDS: DOXEPIN HCL 25 MG CAPSULE NG SCH (21:47)
[2018-05-09] MEDS: LEVALBUTEROL HCL NEB 1.25 MG/3 ML AMPUL NEB SCH ×6 (00:58→20:38)
[2018-05-09] MEDS: NYSTATIN 500000 UNIT/5 ML UDCUP PO SCH ×4 (02:22→18:33)
[2018-05-09] MEDS: LORAZEPAM INJ 2 MG/1 ML VIAL IV PRN ×4 (02:32→20:49)
[2018-05-09 04:43] LABS: ABSOLUTE LYMPHOCYTES (AUTO) 0.8 10^3/uL (0.5-4.7); ABSOLUTE MONOCYTES (AUTO) 0.6 10^3/uL (0.1-1.4); ABSOLUTE NEUT (AUTO) 12.6 10^3/uL (1.7-8.2); ARTERIAL BLOOD H2CO3 1.38 mmol/L (1.05-1.35); ARTERIAL BLOOD HCO3 34.5 mmol/L (20-24); ARTERIAL BLOOD O2 SATURATION 96.4 % (94-98); ARTERIAL BLOOD PCO2 45.9 mmHg (35-45); ARTERIAL BLOOD PH 7.49 (7.35-7.45); ARTERIAL BLOOD PO2 78.4 mmHg (80-100); ARTERIAL BLOOD TOTAL CO2 35.9 mmol/L (21-25); BASOPHILS % (AUTO) 0.2 % (0-2); HEMATOCRIT 35.1 % (36.0-47.0); HEMOGLOBIN 11.9 g/dL (12.0-15.5); LYMPHOCYTES % (AUTO) 5.4 % (13-45); MEAN CORPUSCULAR HEMOGLOBIN 29.2 pg (27.0-33.4); MEAN CORPUSCULAR VOLUME 86 fl (80-97); MONOCYTES % (AUTO) 4.1 % (3-13); PLATELET COUNT 175 10^3/uL (150-450); RED BLOOD COUNT 4.08 10^6/uL (3.72-5.28); RED CELL DISTRIBUTION WIDTH 15.7 % (11.5-14.0); SEGMENTED NEUTROPHILS % (AUTO) 90.3 % (42-78); TOTAL CELLS COUNTED % (AUTO) 100 %
[2018-05-09 04:49] LABS: ARTERIAL BLOOD FIO2 30%
[2018-05-09 04:55] LABS: ALANINE AMINOTRANSFERASE 31 U/L (9-52); ALBUMIN 2.9 g/dL (3.5-5.0); ALKALINE PHOSPHATASE 45 U/L (38-126); ANION GAP 5 (5-19); ASPARTATE AMINO TRANSFERASE 27 U/L (14-36); BILIRUBIN,DIRECT 0.3 mg/dL (0.0-0.4); BLOOD UREA NITROGEN 30 mg/dL (7-20); CALCIUM 8.2 mg/dL (8.4-10.2); CARBON DIOXIDE 33 mmol/L (22-30); CHLORIDE 95 mmol/L (98-107); GLUCOSE 93 mg/dL (75-110); POTASSIUM 4.3 mmol/L (3.6-5.0); SODIUM 132.7 mmol/L (137-145)
[2018-05-09] MEDS: HEPARIN SOD (PORCINE) 5,000 UNIT/ML 1 ML SYRINGE SUBCUT SCH ×3 (06:02→22:35)
--- NOTE | 2018-05-09 08:55 | PDOC PROGRESS REPORT ---
Subjective Progress Note for:: 05/09/18 Subjective:: 05/03/2018 patient is still on the vent with sedation. Repeat ABG shows PCO2 of 90. Pulse oxes are improved with deep suctioning. Plan to repeat the ABG around 10 AM. Patient was started on levofloxacin and cefepime. Blood cultures sputum cultures urine cultures are requested. Patient is still in the ED was the bed is available she will be moved to the intensive care unit. At the moment patient condition is critical. 05/06/2018 patient still on mechanical ventilation with sedation she is on Versed 8 mg/h and also on diprivan 50 mcg/kg/min. She was tried to be weaned off yesterday with sedation with moderate success the plan is to try to do the weaning trial today. ABG was done this morning on 40% oxygen pH is 7.35 PCO2 is 57 PCO2 is 83 bicarb is 28 oxygen saturation is 93-94%. Patient afebrile no acute events in the last 24 hours. Chest x-ray remains the same today. 05/07/2018-no acute events in the last 24 hours. Weaning of process was part ially successful yesterday. Patient is off the ventilator for several hours yesterday. She becomes tired and has a difficulty in breathing so placed back on a ventilator. ABG done this morning shows pH of 7.3 PCO2 59 PaO2 97 bicarb is 28.5 oxygen saturation is 96%. Patient is afebrile. Blood pressure is 101/51. Pulmonary is on board. Patient is getting her home medications via NG tube. We are going to again try to do the trial of extubation today. Patient is comfortably sleeping in the bed she is on Versed drip 2 mg/h on diprivan 50 mcg/kg/min. 05/08/2018-patient was successfully extubated yesterday. She is on BiPAP right now. Pulse ox is 98% on 3 L. Afebrile. No acute events in the last 24 hours. ABG done on 30% shows pH of 7.39/PO2 54 PCO2 58 bicarb 32 pulse ox is 89%. 05/09/2018-patient doing much better today able to communicate well. Still complaining of anxiety and lower back pain. She is on nasal cannula right now. Pulse ox on 3 L is 94%. Patient is waiting for bed to move to [facility]. Physical therapy consult is going to be requested. Reason For Visit: ACUTE ON CHRONIC RESPIRATORY FAILURE Physical Exam Vital Signs: Temp Pulse Resp BP Pulse Ox 98.6 F 107 H 17 150/82 H 94 05/09/18 08:00 05/09/18 08:07 05/09/18 08:07 05/09/18 08:00 05/09/18 08:07 Intake & Output 05/08/18 05/09/18 05/10/18 06:59 06:59 06:59 Intake Total 180 170 Output Total 3240 4400 300 Balance -3060 -4230 -300 Weight 59.7 kg 56.5 kg General appearance: PRESENT: no acute distress Head exam: PRESENT: atraumatic Eye exam: PRESENT: PERRLA Mouth exam: PRESENT: moist Respiratory exam: PRESENT: clear to auscultation lopez. ABSENT: rales, rhonchi, wheezes GI/Abdominal exam: PRESENT: normal bowel sounds, soft. ABSENT: distended, guarding, mass, organolmegaly, rebound, tenderness Extremities exam: PRESENT: full ROM. ABSENT: calf tenderness, clubbing, pedal edema Psychiatric exam: PRESENT: appropriate affect, normal mood. ABSENT: homicidal ideation, suicidal ideation Results Laboratory Results: 05/09/18 04:27 05/09/18 04:27 05/09/18 05/09/18 05/09/18 04:27 04:27 04:27 WBC 14.0 H RBC 4.08 Hgb 11.9 L Hct 35.1 L MCV 86 MCH 29.2 MCHC 34.0 RDW 15.7 H Plt Count 175 Seg Neutrophils % 90.3 H Lymphocytes % 5.4 L Monocytes % 4.1 Eosinophils % 0.0 Basophils % 0.2 Absolute Neutrophils 12.6 H Absolute Lymphocytes 0.8 Absolute Monocytes 0.6 Absolute Eosinophils 0.0 Absolute Basophils 0.0 Carbonic Acid 1.38 H HCO3/H2CO3 Ratio 25:1 ABG pH 7.49 H ABG pCO2 45.9 H ABG pO2 78.4 L ABG HCO3 34.5 H ABG O2 Saturation 96.4 ABG Base Excess 10.0 FiO2 30% Sodium 132.7 L Potassium 4.3 Chloride 95 L Carbon Dioxide 33 H Anion Gap 5 BUN 30 H Creatinine 0.53 Est GFR ( Amer) > 60 Est GFR (Non-Af Amer) > 60 Glucose 93 Calcium 8.2 L Magnesium 2.0 Total Bilirubin 1.0 AST 27 ALT 31 Alkaline Phosphatase 45 Total Protein 5.0 L Albumin 2.9 L 05/03/18 09:35 Blood Blood Culture - Final NO GROWTH IN 5 DAYS 05/03/18 04:10 Blood Blood Culture - Final NO GROWTH IN 5 DAYS 05/03/18 05/03/18 04:10 04:10 Troponin I < 0.012 NT-Pro-B Natriuret Pep 259 Impressions: Chest CT 05/03/18 00:00 IMPRESSION: Limited airspace disease in the anterior right upper lobe. Pneumonia versus atelectasis. Chest X-Ray 05/08/18 07:45 IMPRESSION: 1. Interval removal of the endotracheal tube and feeding tube. 2. Trace residual blunting of the right lateral costophrenic sulcus. 3. Stable right IJ central venous catheter. Assessment & Plan - Diagnosis (1) Acute and chronic respiratory failure with hypercapnia Is this a current diagnosis for this admission?: Yes Plan: 05/03/2018-patient came in with PCO2 of 90. She was intubated properly. She was admitted for similar complaints and had at least 49 intubations before. Plan is to continue the mechanical ventilation with sedation, pulmonary consult was requested. Be going to do the daily ABGs. On IV Solu-Medrol 125 mg every 8 hours, nebulizer treatments, started on cefepime and levofloxacin. Chest x-ray did not show any pneumonia. Again condition is critical V going to follow her closely. 05/06/2018 patient was admitted with acute on chronic respiratory failure with hypercapnia hypercapnia is resolving sputum culture is positive for gram- positive cocci in clusters she is on cefepime and Levaquin afebrile in the last 24-48 hours. ABG done today shows pH of 7.32 PCO2 is 57 hypercapnia is resolving hypoxia is improving. We are going to try to wean her off today. On board. Patient was admitted several times for the same problem she was admitted with respiratory failure and intubated 49 times prior to this admission. 05/07/2018-patient is admitted with acute on chronic respiratory failure with hypercapnia and hypoxia. Hypercapnia is resolving hypoxia is improved. Sputum cultures came back with Staphylococcus aureus. Patient is on cefepime. Patient is afebrile for the last 24 hours. ABG done this morning pH is 7.3/PCO2 59/bicarb is 28.5. Oxygen saturation is 96%. Plan is to wean her off from the vent. 05/08/2018-patient was admitted with acute on chronic respiratory failure with hypoxia and hypercapnia. Successfully extubated. Doing well on BiPAP. Sputum cultures came back positive for staph aureus. Patient on cefepime. Afebrile f or the last 48-72 hours. Patient is presently on nebulizer treatments, IV Solu- Medrol 40 mg every 8 hours. On BiPAP 30%. Be going to ask for the CPT treatment. Request for the labs tomorrow. Decrease the Solu-Medrol to every 12 hours. I think patient is stable enough to go to [facility]. 05/09/2018-patient was admitted with acute on chronic respiratory failure with hypoxia and hypercapnia. She was intubated until yesterday successfully extubated. No complications so far. Pulse ox on 3 L is 94%. Patient is getting nebulizer [id number] 40 mg every 12 hours also receiving chest physical therapy. Plan is to continue the present management physical therapy consult was requested today. (2) Bipolar disorder Is this a current diagnosis for this admission?: Yes Plan: 05/03/2018 patient has history of bipolar disorder she is on few home medications. Patient is presently under sedation with Versed. P.o. medications are on hold. 05/06/2018 patient has history of bipolar disorder she is on her Celexa also on Abilify. Presently she is on the ventilator so the medications are on hold. Patient is receiving Versed drip along with diprivan 05/07/2018-patient history of bipolar disorder she is on Celexa and also on Abilify she is getting those medications via NG tube. 05/08/2018-patient has history of bipolar disorder she was on Celexa and Abilify at home those were restarted yesterday. Patient is doing well. 05/09/2018-patient has history of bipolar disorder she is on Celexa, Abilify at home to the medications are renewed while she was in the hospital. (3) COPD with acute exacerbation Is this a current diagnosis for this admission?: Yes Plan: 05/03/2018-patient has history of chronic COPD on home oxygen. COPD exacerbation may be secondary to chronic smoking/atypical pneumonitis. X-rays also showing pulmonary edema. Requested for BNP. 05/06/2018-patient has history of chronic COPD on home oxygen COPD secondary to chronic smoking and CT scan shows atypical pneumonitis sputum cultures are positive for gram-positive cocci in clusters on cefepime and levofloxacin waiting for the sensitivity report. Plan to use to extubate the patient today for possible. She getting Xopenex,ipratropium nebulizations and also on Spiriva. She is receiving IV Solu-Medrol 125 mg every 8 hours and I decreased the Solu-Medrol dose of 40 mg every 8 hours. 05/07/2018 patient has a history of COPD secondary to chronic smoking and sputum culture positive for staph aureus on cefepime time. She is also on IV Solu- Medrol 40 mg daily 8 hours. Getting Xopenex ipratropium nebulizations also on Spiriva. Plan is to continue the present management. 05/08/2018-patient has history of COPD secondary to chronic smoking. Sputum culture positive for staph aureus. On IV Solu-Medrol every 8 hours. She is on a Xopenex, ipratropium, Spiriva. Plan is to decrease the Solu-Medrol to 40 mg every 12 hours. 05/09/2018-patient has history of COPD secondary to chronic smoking. Sputum culture positive for staph aureus. Completed 1 week course of cefepime. Patient presently on IV Solu-Medrol 40 mg every 12 hours and it was decreased to daily. Is to continue Xopenex, ipratropium nebulizations and Spiriva inhalation daily. Patient continues to smoke and smoking counseling was provided. (4) Smoker Is this a current diagnosis for this admission?: Yes Plan: 05/07/2018 patient history of chronic smoking we are going to put her on nicotine patch 21 mg daily. 05/09/2018-patient has history of chronic smoking again smoking counseling was provided for more than 10 minutes and she was placed on nicotine patch 21 mg daily. - Time Time Spent with patient: 15-24 minutes Smoking Cessation Education: over 10 minutes Medications reviewed and adjusted accordingly: Yes Anticipated discharge: Home
[2018-05-09] MEDS: METHYLPREDNISOLONE INJ 40 MG/1 ML SDV IV SCH (09:41)
[2018-05-09] MEDS: CITALOPRAM HYDROBROMIDE 20 MG TABLET PO SCH (09:41)
[2018-05-09] MEDS: TIOTROPIUM BROMIDE DPI 5 CAP/KIT (18 MCG/CAP) IH SCH (09:41)
[2018-05-09] MEDS: FAMOTIDINE 20 MG TABLET PO SCH ×2 (09:41→22:36)
[2018-05-09] MEDS: BACLOFEN 10 MG TABLET NG SCH ×2 (09:42→18:33)
[2018-05-09] MEDS: TOLTERODINE TARTRATE 1 MG TABLET NG SCH ×2 (09:42→22:35)
[2018-05-09] MEDS: ARIPIPRAZOLE 5 MG TABLET PO SCH (09:42)
[2018-05-09] MEDS: DOXEPIN HCL 25 MG CAPSULE NG SCH (22:35)
[2018-05-10] MEDS: NYSTATIN 500000 UNIT/5 ML UDCUP PO SCH ×2 (00:09→05:06)
[2018-05-10] MEDS: LEVALBUTEROL HCL NEB 1.25 MG/3 ML AMPUL NEB SCH ×6 (00:38→20:46)
[2018-05-10] MEDS: HEPARIN SOD (PORCINE) 5,000 UNIT/ML 1 ML SYRINGE SUBCUT SCH ×3 (05:05→22:05)
[2018-05-10] MEDS: LORAZEPAM INJ 2 MG/1 ML VIAL IV PRN ×2 (05:33→09:33)
[2018-05-10 06:05] LABS: ABSOLUTE EOSINOPHILS # (AUTO) 0.1 10^3/uL (0.0-0.6); ABSOLUTE LYMPHOCYTES (AUTO) 1.9 10^3/uL (0.5-4.7); ABSOLUTE MONOCYTES (AUTO) 1.1 10^3/uL (0.1-1.4); ABSOLUTE NEUT (AUTO) 9.5 10^3/uL (1.7-8.2); BASOPHILS % (AUTO) 0.1 % (0-2); EOSINOPHILS % (AUTO) 0.8 % (0-6); HEMATOCRIT 35.6 % (36.0-47.0); HEMOGLOBIN 12.1 g/dL (12.0-15.5); LYMPHOCYTES % (AUTO) 15.3 % (13-45); MEAN CORPUSCULAR HEMOGLOBIN 29.3 pg (27.0-33.4); MEAN CORPUSCULAR HGB CONC 33.9 g/dL (32.0-36.0); MEAN CORPUSCULAR VOLUME 87 fl (80-97); MONOCYTES % (AUTO) 8.4 % (3-13); PLATELET COUNT 178 10^3/uL (150-450); RED BLOOD COUNT 4.12 10^6/uL (3.72-5.28); SEGMENTED NEUTROPHILS % (AUTO) 75.4 % (42-78); TOTAL CELLS COUNTED % (AUTO) 100 %; WHITE BLOOD COUNT 12.7 10^3/uL (4.0-10.5)
[2018-05-10 06:29] LABS: ANION GAP 5 (5-19)
[2018-05-10 07:24] LABS: ALANINE AMINOTRANSFERASE 23 U/L (9-52); ALBUMIN 3.1 g/dL (3.5-5.0); ALKALINE PHOSPHATASE 46 U/L (38-126); ASPARTATE AMINO TRANSFERASE 24 U/L (14-36); BILIRUBIN,DIRECT 0.3 mg/dL (0.0-0.4); BILIRUBIN,TOTAL 0.9 mg/dL (0.2-1.3); BLOOD UREA NITROGEN 22 mg/dL (7-20); CALCIUM 8.6 mg/dL (8.4-10.2); CARBON DIOXIDE 37 mmol/L (22-30); CHLORIDE 91 mmol/L (98-107); GLUCOSE 75 mg/dL (75-110); POTASSIUM 3.7 mmol/L (3.6-5.0); SODIUM 132.7 mmol/L (137-145); TOTAL PROTEIN 5.3 g/dL (6.3-8.2)
[2018-05-10] MEDS: CITALOPRAM HYDROBROMIDE 20 MG TABLET PO SCH (09:29)
[2018-05-10] MEDS: ARIPIPRAZOLE 5 MG TABLET PO SCH (09:29)
[2018-05-10] MEDS: BACLOFEN 10 MG TABLET NG SCH ×2 (09:29→17:58)
[2018-05-10] MEDS: FAMOTIDINE 20 MG TABLET PO SCH ×2 (09:29→22:05)
[2018-05-10] MEDS: METHYLPREDNISOLONE INJ 40 MG/1 ML SDV IV SCH (09:29)
[2018-05-10] MEDS: TIOTROPIUM BROMIDE DPI 5 CAP/KIT (18 MCG/CAP) IH SCH (09:30)
[2018-05-10] MEDS: TOLTERODINE TARTRATE 1 MG TABLET NG SCH ×2 (09:30→22:04)
--- NOTE | 2018-05-10 11:58 | PDOC PROGRESS REPORT ---
Subjective Progress Note for:: 05/10/18 Subjective:: 05/03/2018 patient is still on the vent with sedation. Repeat ABG shows PCO2 of 90. Pulse oxes are improved with deep suctioning. Plan to repeat the ABG around 10 AM. Patient was started on levofloxacin and cefepime. Blood cultures sputum cultures urine cultures are requested. Patient is still in the ED was the bed is available she will be moved to the intensive care unit. At the moment patient condition is critical. 05/06/2018 patient still on mechanical ventilation with sedation she is on Versed 8 mg/h and also on diprivan 50 mcg/kg/min. She was tried to be weaned off yesterday with sedation with moderate success the plan is to try to do the weaning trial today. ABG was done this morning on 40% oxygen pH is 7.35 PCO2 is 57 PCO2 is 83 bicarb is 28 oxygen saturation is 93-94%. Patient afebrile no acute events in the last 24 hours. Chest x-ray remains the same today. 05/07/2018-no acute events in the last 24 hours. Weaning of process was part ially successful yesterday. Patient is off the ventilator for several hours yesterday. She becomes tired and has a difficulty in breathing so placed back on a ventilator. ABG done this morning shows pH of 7.3 PCO2 59 PaO2 97 bicarb is 28.5 oxygen saturation is 96%. Patient is afebrile. Blood pressure is 101/51. Pulmonary is on board. Patient is getting her home medications via NG tube. We are going to again try to do the trial of extubation today. Patient is comfortably sleeping in the bed she is on Versed drip 2 mg/h on diprivan 50 mcg/kg/min. 05/08/2018-patient was successfully extubated yesterday. She is on BiPAP right now. Pulse ox is 98% on 3 L. Afebrile. No acute events in the last 24 hours. ABG done on 30% shows pH of 7.39/PO2 54 PCO2 58 bicarb 32 pulse ox is 89%. 05/09/2018-patient doing much better today able to communicate well. Still complaining of anxiety and lower back pain. She is on nasal cannula right now. Pulse ox on 3 L is 94%. Patient is waiting for bed to move to [facility]. Physical therapy consult is going to be requested. 05/10/2018 patient is comfortable in the chair. Complaining of back pain requesting pain medications. She is also requesting the Tapia's catheter to be removed. Asymptomatic. Afebrile. No complaints no concerns from the nurses. Reason For Visit: ACUTE ON CHRONIC RESPIRATORY FAILURE Physical Exam Vital Signs: Temp Pulse Resp BP Pulse Ox 97.5 F 102 H 15 137/67 H 98 05/10/18 04:00 05/10/18 07:00 05/10/18 04:00 05/10/18 04:00 05/10/18 04:00 Intake & Output 05/09/18 05/10/18 05/11/18 06:59 06:59 06:59 Intake Total 170 50 Output Total 4400 2625 Balance -4230 -2575 Weight 56.5 kg 54.5 kg General appearance: PRESENT: no acute distress Head exam: PRESENT: atraumatic Eye exam: PRESENT: PERRLA Mouth exam: PRESENT: dry mucosa Teeth exam: PRESENT: poor dentation Neck exam: ABSENT: carotid bruit, JVD, lymphadenopathy, thyromegaly Respiratory exam: PRESENT: decreased breath sounds Cardiovascular exam: PRESENT: tachycardia GI/Abdominal exam: PRESENT: normal bowel sounds, soft. ABSENT: distended, guarding, mass, organolmegaly, rebound, tenderness Extremities exam: PRESENT: full ROM. ABSENT: calf tenderness, clubbing, pedal edema Neurological exam: PRESENT: alert, awake, oriented to person, oriented to place, oriented to time, oriented to situation, CN II-XII grossly intact. ABSENT: motor sensory deficit Psychiatric exam: PRESENT: appropriate affect, normal mood. ABSENT: homicidal ideation, suicidal ideation Results Laboratory Results: 05/10/18 05:10 05/10/18 05:10 05/10/18 05/10/18 05:10 05:10 WBC 12.7 H RBC 4.12 Hgb 12.1 Hct 35.6 L MCV 87 MCH 29.3 MCHC 33.9 RDW 16.0 H Plt Count 178 Seg Neutrophils % 75.4 Lymphocytes % 15.3 Monocytes % 8.4 Eosinophils % 0.8 Basophils % 0.1 Absolute Neutrophils 9.5 H Absolute Lymphocytes 1.9 Absolute Monocytes 1.1 Absolute Eosinophils 0.1 Absolute Basophils 0.0 Sodium 132.7 L Potassium 3.7 Chloride 91 L Carbon Dioxide 37 H Anion Gap 5 BUN 22 H Creatinine 0.54 Est GFR ( Amer) > 60 Est GFR (Non-Af Amer) > 60 Glucose 75 Calcium 8.6 Magnesium 2.0 Total Bilirubin 0.9 AST 24 ALT 23 Alkaline Phosphatase 46 Total Protein 5.3 L Albumin 3.1 L 05/03/18 05/03/18 04:10 04:10 Troponin I < 0.012 NT-Pro-B Natriuret Pep 259 Impressions: Chest CT 05/03/18 00:00 IMPRESSION: Limited airspace disease in the anterior right upper lobe. Pneumonia versus atelectasis. Chest X-Ray 05/08/18 07:45 IMPRESSION: 1. Interval removal of the endotracheal tube and feeding tube. 2. Trace residual blunting of the right lateral costophrenic sulcus. 3. Stable right IJ central venous catheter. Assessment & Plan - Diagnosis (1) Acute and chronic respiratory failure with hypercapnia Is this a current diagnosis for this admission?: Yes Plan: 05/03/2018-patient came in with PCO2 of 90. She was intubated properly. She was admitted for similar complaints and had at least 49 intubations before. Plan is to continue the mechanical ventilation with sedation, pulmonary consult was requested. Be going to do the daily ABGs. On IV Solu-Medrol 125 mg every 8 hours, nebulizer treatments, started on cefepime and levofloxacin. Chest x-ray did not show any pneumonia. Again condition is critical V going to follow her closely. 05/06/2018 patient was admitted with acute on chronic respiratory failure with hypercapnia hypercapnia is resolving sputum culture is positive for gram- positive cocci in clusters she is on cefepime and Levaquin afebrile in the last 24-48 hours. ABG done today shows pH of 7.32 PCO2 is 57 hypercapnia is resolvi ng hypoxia is improving. We are going to try to wean her off today. On board. Patient was admitted several times for the same problem she was admitted with respiratory failure and intubated 49 times prior to this admission. 05/07/2018-patient is admitted with acute on chronic respiratory failure with hypercapnia and hypoxia. Hypercapnia is resolving hypoxia is improved. Sputum cultures came back with Staphylococcus aureus. Patient is on cefepime. Patient is afebrile for the last 24 hours. ABG done this morning pH is 7.3/PCO2 59/bicarb is 28.5. Oxygen saturation is 96%. Plan is to wean her off from the vent. 05/08/2018-patient was admitted with acute on chronic respiratory failure with hypoxia and hypercapnia. Successfully extubated. Doing well on BiPAP. Sputum cultures came back positive for staph aureus. Patient on cefepime. Afebrile for the last 48-72 hours. Patient is presently on nebulizer treatments, IV Solu-Medrol 40 mg every 8 hours. On BiPAP 30%. Be going to ask for the CPT treatment. Request for the labs tomorrow. Decrease the Solu-Medrol to every 12 hours. I think patient is stable enough to go to [facility]. 05/09/2018-patient was admitted with acute on chronic respiratory failure with hypoxia and hypercapnia. She was intubated until yesterday successfully extubated. No complications so far. Pulse ox on 3 L is 94%. Patient is getting nebulizer egjexadcmu-Tbuy-Gixkkc 40 mg every 12 hours also receiving chest physical therapy. Plan is to continue the present management physical therapy consult was requested today. 05/10/2018 patient came in with acute on chronic respiratory failure with hypoxia and hypercapnia. Status post intubation and extubation. Pulse ox today 98% on 3 L. Patient is presently on Solu-Medrol 40 mg IV daily, receiving chest physical therapy, and schedule nipple ideations. She is on ipratropium nebulizations every 12 hours and Xopenex nebs every 4 hours. (2) Bipolar disorder Is this a current diagnosis for this admission?: Yes Plan: 05/03/2018 patient has history of bipolar disorder she is on few home medications. Patient is presently under sedation with Versed. P.o. medications are on hold. 05/06/2018 patient has history of bipolar disorder she is on her Celexa also on Abilify. Presently she is on the ventilator so the medications are on hold. Patient is receiving Versed drip along with diprivan 05/07/2018-patient history of bipolar disorder she is on Celexa and also on Abilify she is getting those medications via NG tube. 05/08/2018-patient has history of bipolar disorder she was on Celexa and Abilify at home those were restarted yesterday. Patient is doing well. 05/09/2018-patient has history of bipolar disorder she is on Celexa, Abilify at home to the medications are renewed while she was in the hospital. 05/10/2017 patient has history of bipolar disorder she is on Celexa and Abilify. No problems with mood swings during this admission. Plan is to continue Celexa and Abilify during the hospital stay. (3) COPD with acute exacerbation Is this a current diagnosis for this admission?: Yes Plan: 05/03/2018-patient has history of chronic COPD on home oxygen. COPD exacerbation may be secondary to chronic smoking/atypical pneumonitis. X-rays also showing pulmonary edema. Requested for BNP. 05/06/2018-patient has history of chronic COPD on home oxygen COPD secondary to chronic smoking and CT scan shows atypical pneumonitis sputum cultures are pos itive for gram-positive cocci in clusters on cefepime and levofloxacin waiting for the sensitivity report. Plan to use to extubate the patient today for possible. She getting Xopenex,ipratropium nebulizations and also on Spiriva. She is receiving IV Solu-Medrol 125 mg every 8 hours and I decreased the Solu- Medrol dose of 40 mg every 8 hours. 05/07/2018 patient has a history of COPD secondary to chronic smoking and sputum culture positive for staph aureus on cefepime time. She is also on IV Solu- Medrol 40 mg daily 8 hours. Getting Xopenex ipratropium nebulizations also on Spiriva. Plan is to continue the present management. 05/08/2018-patient has history of COPD secondary to chronic smoking. Sputum culture positive for staph aureus. On IV Solu-Medrol every 8 hours. She is on a Xopenex, ipratropium, Spiriva. Plan is to decrease the Solu-Medrol to 40 mg every 12 hours. 05/09/2018-patient has history of COPD secondary to chronic smoking. Sputum culture positive for staph aureus. Completed 1 week course of cefepime. Patient presently on IV Solu-Medrol 40 mg every 12 hours and it was decreased to daily. Is to continue Xopenex, ipratropium nebulizations and Spiriva inhalation daily. Patient continues to smoke and smoking counseling was provided. 05/10/2018-patient has history of COPD secondary to chronic smoking. Sputum culture positive for staph aureus. She is afebrile for the last 3-4 days. She is off the antibiotics. I discontinued IV Solu-Medrol today started on prednisone 10 mg p.o. twice a day, will continue Xopenex and ipratropium nebulizations. She is also receiving Spiriva inhalation 1 puff daily. (4) Smoker Is this a current diagnosis for this admission?: Yes - Time Time Spent with patient: 15-24 minutes Smoking Cessation Education: over 10 minutes Medications reviewed and adjusted accordingly: Yes Anticipated discharge: Home
[2018-05-10] MEDS: OXYCODONE-ACETAMINOPHEN 5-325 MG TABLET PO PRN ×2 (13:45→20:44)
--- NOTE | 2018-05-10 14:20 | RADIOLOGY REPORT (SQ) ---
EXAM DESCRIPTION: CHEST SINGLE VIEW COMPLETED DATE/TIME: 05/10/2018 1:51 pm REASON FOR STUDY: shortness of breath. COMPARISON: CT chest 01/19/2018, 05/03/2018 Chest films 05/03/2018, 05/04/2018 EXAM PARAMETERS: NUMBER OF VIEWS: One view. TECHNIQUE: Single frontal radiographic view of the chest acquired. RADIATION DOSE: NA LIMITATIONS: None. FINDINGS: LUNGS AND PLEURA: No opacities, masses or pneumothorax. No pleural effusion. MEDIASTINUM AND HILAR STRUCTURES: No masses. Contour normal. HEART AND VASCULAR STRUCTURES: Heart normal in size. Normal vasculature. BONES: No acute findings. HARDWARE: Right jugular central line tip superior vena cava OTHER: No other significant finding. IMPRESSION: NO ACUTE RADIOGRAPHIC FINDING IN THE CHEST. TECHNICAL DOCUMENTATION: JOB ID: [id number] [employer]- All Rights Reserved Reading location - IP/workstation name: [email or web address]
[2018-05-10] MEDS: PREDNISONE 10 MG TABLET PO SCH (17:58)
[2018-05-10] MEDS: DOXEPIN HCL 25 MG CAPSULE NG SCH (22:04)
[2018-05-11] MEDS: LEVALBUTEROL HCL NEB 1.25 MG/3 ML AMPUL NEB SCH ×6 (01:06→19:16)
[2018-05-11] MEDS: HEPARIN SOD (PORCINE) 5,000 UNIT/ML 1 ML SYRINGE SUBCUT SCH ×3 (06:34→22:29)
[2018-05-11] MEDS: OXYCODONE-ACETAMINOPHEN 5-325 MG TABLET PO PRN ×4 (06:43→23:57)
[2018-05-11 07:08] LABS: ABSOLUTE EOSINOPHILS # (AUTO) 0.1 10^3/uL (0.0-0.6); ABSOLUTE MONOCYTES (AUTO) 1.1 10^3/uL (0.1-1.4); ABSOLUTE NEUT (AUTO) 8.9 10^3/uL (1.7-8.2); BASOPHILS % (AUTO) 0.1 % (0-2); EOSINOPHILS % (AUTO) 0.9 % (0-6); HEMATOCRIT 34.6 % (36.0-47.0); HEMOGLOBIN 11.5 g/dL (12.0-15.5); LYMPHOCYTES % (AUTO) 16.4 % (13-45); MEAN CORPUSCULAR HEMOGLOBIN 29.3 pg (27.0-33.4); MEAN CORPUSCULAR HGB CONC 33.1 g/dL (32.0-36.0); MEAN CORPUSCULAR VOLUME 88 fl (80-97); MONOCYTES % (AUTO) 9.4 % (3-13); PLATELET COUNT 173 10^3/uL (150-450); RED BLOOD COUNT 3.92 10^6/uL (3.72-5.28); RED CELL DISTRIBUTION WIDTH 15.4 % (11.5-14.0); SEGMENTED NEUTROPHILS % (AUTO) 73.2 % (42-78); TOTAL CELLS COUNTED % (AUTO) 100 %; WHITE BLOOD COUNT 12.1 10^3/uL (4.0-10.5)
[2018-05-11 07:24] LABS: ALANINE AMINOTRANSFERASE 32 U/L (9-52); ALBUMIN 3.1 g/dL (3.5-5.0); ALKALINE PHOSPHATASE 43 U/L (38-126); ASPARTATE AMINO TRANSFERASE 21 U/L (14-36); BILIRUBIN,DIRECT 0.2 mg/dL (0.0-0.4); BILIRUBIN,TOTAL 0.6 mg/dL (0.2-1.3); BLOOD UREA NITROGEN 16 mg/dL (7-20); CALCIUM 9.1 mg/dL (8.4-10.2); GLUCOSE 105 mg/dL (75-110); POTASSIUM 3.7 mmol/L (3.6-5.0); TOTAL PROTEIN 5.1 g/dL (6.3-8.2)
[2018-05-11 07:30] LABS: CARBON DIOXIDE 39 mmol/L (22-30); CHLORIDE 92 mmol/L (98-107); SODIUM 133.3 mmol/L (137-145)
[2018-05-11 07:31] LABS: ANION GAP 2 (5-19)
[2018-05-11] MEDS: TIOTROPIUM BROMIDE DPI 5 CAP/KIT (18 MCG/CAP) IH SCH (10:53)
[2018-05-11] MEDS: BACLOFEN 10 MG TABLET NG SCH ×2 (10:54→18:02)
[2018-05-11] MEDS: CITALOPRAM HYDROBROMIDE 20 MG TABLET PO SCH (10:54)
[2018-05-11] MEDS: TOLTERODINE TARTRATE 1 MG TABLET NG SCH ×2 (10:54→22:26)
[2018-05-11] MEDS: PREDNISONE 10 MG TABLET PO SCH ×2 (10:54→18:02)
[2018-05-11] MEDS: ARIPIPRAZOLE 5 MG TABLET PO SCH (10:54)
[2018-05-11] MEDS: FAMOTIDINE 20 MG TABLET PO SCH ×2 (10:54→22:27)
--- NOTE | 2018-05-11 13:37 | PDOC PROGRESS REPORT ---
Subjective Progress Note for:: 05/11/18 Subjective:: 05/03/2018 patient is still on the vent with sedation. Repeat ABG shows PCO2 of 90. Pulse oxes are improved with deep suctioning. Plan to repeat the ABG around 10 AM. Patient was started on levofloxacin and cefepime. Blood cultures sputum cultures urine cultures are requested. Patient is still in the ED was the bed is available she will be moved to the intensive care unit. At the moment patient condition is critical. 05/06/2018 patient still on mechanical ventilation with sedation she is on Versed 8 mg/h and also on diprivan 50 mcg/kg/min. She was tried to be weaned off yesterday with sedation with moderate success the plan is to try to do the weaning trial today. ABG was done this morning on 40% oxygen pH is 7.35 PCO2 is 57 PCO2 is 83 bicarb is 28 oxygen saturation is 93-94%. Patient afebrile no acute events in the last 24 hours. Chest x-ray remains the same today. 05/07/2018-no acute events in the last 24 hours. Weaning of process was part ially successful yesterday. Patient is off the ventilator for several hours yesterday. She becomes tired and has a difficulty in breathing so placed back on a ventilator. ABG done this morning shows pH of 7.3 PCO2 59 PaO2 97 bicarb is 28.5 oxygen saturation is 96%. Patient is afebrile. Blood pressure is 101/51. Pulmonary is on board. Patient is getting her home medications via NG tube. We are going to again try to do the trial of extubation today. Patient is comfortably sleeping in the bed she is on Versed drip 2 mg/h on diprivan 50 mcg/kg/min. 05/08/2018-patient was successfully extubated yesterday. She is on BiPAP right now. Pulse ox is 98% on 3 L. Afebrile. No acute events in the last 24 hours. ABG done on 30% shows pH of 7.39/PO2 54 PCO2 58 bicarb 32 pulse ox is 89%. 05/09/2018-patient doing much better today able to communicate well. Still complaining of anxiety and lower back pain. She is on nasal cannula right now. Pulse ox on 3 L is 94%. Patient is waiting for bed to move to [facility]. Physical therapy consult is going to be requested. 05/10/2018 patient is comfortable in the chair. Complaining of back pain requesting pain medications. She is also requesting the Tapia's catheter to be removed. Asymptomatic. Afebrile. No complaints no concerns from the nurses. 05/11/2018 patient is comfortably in the chair, expressing desire to go home today. No acute events in the last 24 hours patient is afebrile. Patient is still on oxygen pulse ox is 92% on 2 L. She is struggling to complete the sentences. Reason For Visit: ACUTE ON CHRONIC RESPIRATORY FAILURE Physical Exam Vital Signs: Temp Pulse Resp BP Pulse Ox 98.0 F 103 H 18 109/61 92 05/11/18 10:59 05/11/18 10:59 05/11/18 10:59 05/11/18 10:59 05/11/18 10:59 Intake & Output 05/10/18 05/11/18 05/12/18 06:59 06:59 06:59 Intake Total 50 670 Output Total 2625 1900 Balance -2575 -1230 Weight 54.5 kg 52.8 kg General appearance: PRESENT: mild distress Head exam: PRESENT: atraumatic Eye exam: PRESENT: PERRLA Mouth exam: PRESENT: dry mucosa Neck exam: ABSENT: carotid bruit, JVD, lymphadenopathy, thyromegaly Respiratory exam: PRESENT: decreased breath sounds Cardiovascular exam: PRESENT: systolic murmur, tachycardia GI/Abdominal exam: PRESENT: normal bowel sounds, soft. ABSENT: distended, guarding, mass, organolmegaly, rebound, tenderness Extremities exam: PRESENT: full ROM. ABSENT: calf tenderness, clubbing, pedal edema Neurological exam: PRESENT: alert, awake, oriented to person, oriented to place, oriented to time, oriented to situation, CN II-XII grossly intact. ABSENT: motor sensory deficit Psychiatric exam: PRESENT: appropriate affect, normal mood. ABSENT: homicidal ideation, suicidal ideation Results Laboratory Results: 05/11/18 06:30 05/11/18 06:30 05/11/18 05/11/18 06:30 06:30 WBC 12.1 H RBC 3.92 Hgb 11.5 L Hct 34.6 L MCV 88 MCH 29.3 MCHC 33.1 RDW 15.4 H Plt Count 173 Seg Neutrophils % 73.2 Lymphocytes % 16.4 Monocytes % 9.4 Eosinophils % 0.9 Basophils % 0.1 Absolute Neutrophils 8.9 H Absolute Lymphocytes 2.0 Absolute Monocytes 1.1 Absolute Eosinophils 0.1 Absolute Basophils 0.0 Sodium 133.3 L Potassium 3.7 Chloride 92 L Carbon Dioxide 39 H Anion Gap 2 L BUN 16 Creatinine 0.51 L Est GFR ( Amer) > 60 Est GFR (Non-Af Amer) > 60 Glucose 105 Calcium 9.1 Magnesium 1.8 Total Bilirubin 0.6 AST 21 ALT 32 Alkaline Phosphatase 43 Total Protein 5.1 L Albumin 3.1 L 05/03/18 05/03/18 04:10 04:10 Troponin I < 0.012 NT-Pro-B Natriuret Pep 259 Impressions: Chest CT 05/03/18 00:00 IMPRESSION: Limited airspace disease in the anterior right upper lobe. Pneumonia versus atelectasis. Chest X-Ray 05/10/18 00:00 IMPRESSION: NO ACUTE RADIOGRAPHIC FINDING IN THE CHEST. Assessment & Plan - Diagnosis (1) Acute and chronic respiratory failure with hypercapnia Is this a current diagnosis for this admission?: Yes Plan: 05/03/2018-patient came in with PCO2 of 90. She was intubated properly. She was admitted for similar complaints and had at least 49 intubations before. Plan is to continue the mechanical ventilation with sedation, pulmonary consult was requested. Be going to do the daily ABGs. On IV Solu-Medrol 125 mg every 8 hours, nebulizer treatments, started on cefepime and levofloxacin. Chest x-ray did not show any pneumonia. Again condition is critical V going to follow her closely. 05/06/2018 patient was admitted with acute on chronic respiratory failure with hypercapnia hypercapnia is resolving sputum culture is positive for gram- positive cocci in clusters she is on cefepime and Levaquin afebrile in the last 24-48 hours. ABG done today shows pH of 7.32 PCO2 is 57 hypercapnia is resolving hypoxia is improving. We are going to try to wean her off today. On board. Patient was admitted several times for the same problem she was admitted with respiratory failure and intubated 49 times prior to this admission. 05/07/2018-patient is admitted with acute on chronic respiratory failure with hypercapnia and hypoxia. Hypercapnia is resolving hypoxia is improved. Sputum cultures came back with Staphylococcus aureus. Patient is on cefepime. Patient is afebrile for the last 24 hours. ABG done this morning pH is 7.3/PCO2 59/bicarb is 28.5. Oxygen saturation is 96%. Plan is to wean her off from the vent. 05/08/2018-patient was admitted with acute on chronic respiratory failure with hypoxia and hypercapnia. Successfully extubated. Doing well on BiPAP. Sputum cultures came back positive for staph aureus. Patient on cefepime. Afebrile for the last 48-72 hours. Patient is presently on nebulizer treatments, IV Solu-Medrol 40 mg every 8 hours. On BiPAP 30%. Be going to ask for the CPT treatment. Request for the labs tomorrow. Decrease the Solu-Medrol to every 12 hours. I think patient is stable enough to go to [facility]. 05/09/2018-patient was admitted with acute on chronic respiratory failure with hypoxia and hypercapnia. She was intubated until yesterday successfully extubated. No complications so far. Pulse ox on 3 L is 94%. Patient is getting nebulizer ederjwnrwc-Rsdl-Gmqmuv 40 mg every 12 hours also receiving chest physical therapy. Plan is to continue the present management physical the seth consult was requested today. 05/10/2018 patient came in with acute on chronic respiratory failure with hypoxia and hypercapnia. Status post intubation and extubation. Pulse ox today 98% on 3 L. Patient is presently on Solu-Medrol 40 mg IV daily, receiving chest physical therapy, and scheduled nebulizations. She is on ipratropium nebulizations every 12 hours and Xopenex nebs every 4 hours. 05/11/2018 patient has history of COPD, admitted with acute on chronic respiratory failure with hypoxia and hypercapnia. hypercapnia is resolved hypoxia is resolving presently patient on 2 L oxygen . Today pulse ox is 92% on 2 L. planning to probably discharge her tomorrow. Presently she is on prednisone 10 mg p.o. twice daily receiving ipratropium nebulizations every 12 hours and Xopenex nebulizations every 4 as needed. (2) Bipolar disorder Is this a current diagnosis for this admission?: Yes Plan: 05/03/2018 patient has history of bipolar disorder she is on few home medications. Patient is presently under sedation with Versed. P.o. medications are on hold. 05/06/2018 patient has history of bipolar disorder she is on her Celexa also on Abilify. Presently she is on the ventilator so the medications are on hold. Patient is receiving Versed drip along with diprivan 05/07/2018-patient history of bipolar disorder she is on Celexa and also on Abilify she is getting those medications via NG tube. 05/08/2018-patient has history of bipolar disorder she was on Celexa and Abilify at home those were restarted yesterday. Patient is doing well. 05/09/2018-patient has history of bipolar disorder she is on Celexa, Abilify at home to the medications are renewed while she was in the hospital. 05/10/2017 patient has history of bipolar disorder she is on Celexa and Abilify. No problems with mood swings during this admission. Plan is to continue Celexa and Abilify during the hospital stay. 05/11/2018 patient has history of bipolar disorder. No episodes of anxiety or agitation or depression during the hospital stay. (3) COPD with acute exacerbation Is this a current diagnosis for this admission?: Yes Plan: 05/03/2018-patient has history of chronic COPD on home oxygen. COPD exacerbation may be secondary to chronic smoking/atypical pneumonitis. X-rays also showing pulmonary edema. Requested for BNP. 05/06/2018-patient has history of chronic COPD on home oxygen COPD secondary to chronic smoking and CT scan shows atypical pneumonitis sputum cultures are positive for gram-positive cocci in clusters on cefepime and levofloxacin nixon jenkins for the sensitivity report. Plan to use to extubate the patient today for possible. She getting Xopenex,ipratropium nebulizations and also on Spiriva. She is receiving IV Solu-Medrol 125 mg every 8 hours and I decreased the Solu- Medrol dose of 40 mg every 8 hours. 05/07/2018 patient has a history of COPD secondary to chronic smoking and sputum culture positive for staph aureus on cefepime time. She is also on IV Solu- Medrol 40 mg daily 8 hours. Getting Xopenex ipratropium nebulizations also on Spiriva. Plan is to continue the present management. 05/08/2018-patient has history of COPD secondary to chronic smoking. Sputum culture positive for staph aureus. On IV Solu-Medrol every 8 hours. She is on a Xopenex, ipratropium, Spiriva. Plan is to decrease the Solu-Medrol to 40 mg every 12 hours. 05/09/2018-patient has history of COPD secondary to chronic smoking. Sputum culture positive for staph aureus. Completed 1 week course of cefepime. Patient presently on IV Solu-Medrol 40 mg every 12 hours and it was decreased to daily. Is to continue Xopenex, ipratropium nebulizations and Spiriva inhalation daily. Patient continues to smoke and smoking counseling was provided. 05/10/2018-patient has history of COPD secondary to chronic smoking. Sputum culture positive for staph aureus. She is afebrile for the last 3-4 days. She is off the antibiotics. I discontinued IV Solu-Medrol today started on prednisone 10 mg p.o. twice a day, will continue Xopenex and ipratropium n ebulizations. She is also receiving Spiriva inhalation 1 puff daily. 05/11/2018-patient has history of COPD secondary to chronic smoking strongly advised to quit smoking sputum cultures positive for staph aureus she is off the antibiotics and she is afebrile probably plan to discharge her tomorrow. (4) Smoker Is this a current diagnosis for this admission?: Yes Plan: 05/07/2018 patient history of chronic smoking we are going to put her on nicotine patch 21 mg daily. 05/09/2018-patient has history of chronic smoking again smoking counseling was provided for more than 10 minutes and she was placed on nicotine patch 21 mg katia ly. 05/11/2018 patient is a chronic smoker presently on nicotine patch. - Time Time Spent with patient: 15-24 minutes Medications reviewed and adjusted accordingly: Yes Anticipated discharge: Home
[2018-05-11] MEDS: DOXEPIN HCL 25 MG CAPSULE NG SCH (22:28)
[2018-05-12] MEDS: LEVALBUTEROL HCL NEB 1.25 MG/3 ML AMPUL NEB SCH ×4 (00:17→12:30)
[2018-05-12] MEDS: HEPARIN SOD (PORCINE) 5,000 UNIT/ML 1 ML SYRINGE SUBCUT SCH (06:17)
[2018-05-12] MEDS: OXYCODONE-ACETAMINOPHEN 5-325 MG TABLET PO PRN ×2 (06:57→13:08)
[2018-05-12 07:20] LABS: ABSOLUTE EOSINOPHILS # (AUTO) 0.1 10^3/uL (0.0-0.6); ABSOLUTE LYMPHOCYTES (AUTO) 2.2 10^3/uL (0.5-4.7); ABSOLUTE NEUT (AUTO) 8.2 10^3/uL (1.7-8.2); BASOPHILS % (AUTO) 0.3 % (0-2); HEMATOCRIT 33.9 % (36.0-47.0); HEMOGLOBIN 11.1 g/dL (12.0-15.5); LYMPHOCYTES % (AUTO) 18.8 % (13-45); MEAN CORPUSCULAR HEMOGLOBIN 29.1 pg (27.0-33.4); MEAN CORPUSCULAR HGB CONC 32.9 g/dL (32.0-36.0); MEAN CORPUSCULAR VOLUME 89 fl (80-97); MONOCYTES % (AUTO) 8.7 % (3-13); PLATELET COUNT 172 10^3/uL (150-450); RED BLOOD COUNT 3.83 10^6/uL (3.72-5.28); RED CELL DISTRIBUTION WIDTH 15.5 % (11.5-14.0); SEGMENTED NEUTROPHILS % (AUTO) 71.2 % (42-78); TOTAL CELLS COUNTED % (AUTO) 100 %; WHITE BLOOD COUNT 11.6 10^3/uL (4.0-10.5)
[2018-05-12 07:39] LABS: ALANINE AMINOTRANSFERASE 40 U/L (9-52); ALBUMIN 3.3 g/dL (3.5-5.0); ALKALINE PHOSPHATASE 44 U/L (38-126); ASPARTATE AMINO TRANSFERASE 23 U/L (14-36); BILIRUBIN,DIRECT 0.2 mg/dL (0.0-0.4); BILIRUBIN,TOTAL 0.6 mg/dL (0.2-1.3); BLOOD UREA NITROGEN 12 mg/dL (7-20); CALCIUM 9.2 mg/dL (8.4-10.2); GLUCOSE 76 mg/dL (75-110); POTASSIUM 3.8 mmol/L (3.6-5.0); TOTAL PROTEIN 5.5 g/dL (6.3-8.2)
[2018-05-12 07:44] LABS: CARBON DIOXIDE 38 mmol/L (22-30); CHLORIDE 94 mmol/L (98-107); SODIUM 134.1 mmol/L (137-145)
[2018-05-12 07:48] LABS: ANION GAP 2 (5-19)
[2018-05-12] MEDS: FAMOTIDINE 20 MG TABLET PO SCH (10:12)
[2018-05-12] MEDS: TOLTERODINE TARTRATE 1 MG TABLET NG SCH (10:13)
[2018-05-12] MEDS: CITALOPRAM HYDROBROMIDE 20 MG TABLET PO SCH (10:13)
[2018-05-12] MEDS: TIOTROPIUM BROMIDE DPI 5 CAP/KIT (18 MCG/CAP) IH SCH (10:13)
[2018-05-12] MEDS: BACLOFEN 10 MG TABLET NG SCH (10:13)
[2018-05-12] MEDS: PREDNISONE 10 MG TABLET PO SCH (10:14)
[2018-05-12] MEDS: ARIPIPRAZOLE 5 MG TABLET PO SCH (10:14)
--- NOTE | 2018-05-12 12:14 | PDOC DISCHARGE SUMMARY ---
General - Admit/Disc Date/PCP Admission Date/Primary Care Provider: 05/03/18 06:54 MAURIZIO MOLINA-C Discharge Date: 05/12/18 - Discharge Diagnosis (1) Acute and chronic respiratory failure with hypercapnia Is this a current diagnosis for this admission?: Yes Summary: 05/03/2018-patient came in with PCO2 of 90. She was intubated properly. She was admitted for similar complaints and had at least 49 intubations before. Plan is to continue the mechanical ventilation with sedation, pulmonary consult was requested. Be going to do the daily ABGs. On IV Solu-Medrol 125 mg every 8 hours, nebulizer treatments, started on cefepime and levofloxacin. Chest x-ray did not show any pneumonia. Again condition is critical V going to follow her closely. 05/06/2018 patient was admitted with acute on chronic respiratory failure with hypercapnia hypercapnia is resolving sputum culture is positive for gram- positive cocci in clusters she is on cefepime and Levaquin afebrile in the last 24-48 hours. ABG done today shows pH of 7.32 PCO2 is 57 hypercapnia is resolving hypoxia is improving. We are going to try to wean her off today. On board. Patient was admitted several times for the same problem she was admitted with respiratory failure and intubated 49 times prior to this admission. 05/07/2018-patient is admitted with acute on chronic respiratory failure with hypercapnia and hypoxia. Hypercapnia is resolving hypoxia is improved. Sputum cultures came back with Staphylococcus aureus. Patient is on cefepime. Patient is afebrile for the last 24 hours. ABG done this morning pH is 7.3/PCO2 59/bicarb is 28.5. Oxygen saturation is 96%. Plan is to wean her off from the vent. 05/08/2018-patient was admitted with acute on chronic respiratory failure with hypoxia and hypercapnia. Successfully extubated. Doing well on BiPAP. Sputum cultures came back positive for staph aureus. Patient on cefepime. Afebrile for the last 48-72 hours. Patient is presently on nebulizer treatments, IV Solu-Medrol 40 mg every 8 hours. On BiPAP 30%. Be going to ask for the CPT treatment. Request for the labs tomorrow. Decrease the Solu-Medrol to every 12 hours. I think patient is stable enough to go to [facility]. 05/09/2018-patient was admitted with acute on chronic respiratory failure with hypoxia and hypercapnia. She was intubated until yesterday successfully extubated. No complications so far. Pulse ox on 3 L is 94%. Patient is getting nebulizer eitslikwsr-Rmrk-Vthgbc 40 mg every 12 hours also receiving chest physical therapy. Plan is to continue the present management physical therapy consult was requested today. 05/10/2018 patient came in with acute on chronic respiratory failure with hypoxia and hypercapnia. Status post intubation and extubation. Pulse ox today 98% on 3 L. Patient is presently on Solu-Medrol 40 mg IV daily, receiving chest physical therapy, and scheduled nebulizations. She is on ipratropium nebulizations every 12 hours and Xopenex nebs every 4 hours. 05/11/2018 patient has history of COPD, admitted with acute on chronic respir atory failure with hypoxia and hypercapnia. hypercapnia is resolved hypoxia is resolving presently patient on 2 L oxygen . Today pulse ox is 92% on 2 L. planning to probably discharge her tomorrow. Presently she is on prednisone 10 mg p.o. twice daily receiving ipratropium nebulizations every 12 hours and Xopenex nebulizations every 4 as needed. 05/12/2018-patient has history of COPD secondary to smoking she continues to smoke admitted with acute on chronic respiratory failure with hypoxia and hypercapnia. Status post intubation and extubation. Patient is doing well. Pulse ox is 92% on 3 L today. Patient is expressing desire to go home. She promised me she is going to quit smoking from today. Patient says she does not need any refill on medications. I am going to give a prescription for prednisone 10 mg p.o. twice daily for 1 week. Patient was strongly advised to follow-up with primary care physician in 3-5 days. (2) Bipolar disorder Is this a current diagnosis for this admission?: Yes Summary: 05/03/2018 patient has history of bipolar disorder she is on few home medications. Patient is presently under sedation with Versed. P.o. medications are on hold. 05/06/2018 patient has history of bipolar disorder she is on her Celexa also on Abilify. Presently she is on the ventilator so the medications are on hold. Patient is receiving Versed drip along with diprivan 05/07/2018-patient history of bipolar disorder she is on Celexa and also on Abilify she is getting those medications via NG tube. 05/08/2018-patient has history of bipolar disorder she was on Celexa and Abilify at home those were restarted yesterday. Patient is doing well. 05/09/2018-patient has history of bipolar disorder she is on Celexa, Abilify at home to the medications are renewed while she was in the hospital. 05/10/2017 patient has history of bipolar disorder she is on Celexa and Abilify. No problems with mood swings during this admission. Plan is to continue Celexa and Abilify during the hospital stay. 05/11/2018 patient has history of bipolar disorder. No episodes of anxiety or agitation or depression during the hospital stay. 05/12/2018-patient has history of bipolar disorder she was on Celexa and Abilify at home and we continued those medications during the hospital stay patient was advised to continue those medications at home also. Complications during the hospital stay. (3) COPD with acute exacerbation Is this a current diagnosis for this admission?: Yes Summary: 05/03/2018-patient has history of chronic COPD on home oxygen. COPD exacerbation may be secondary to chronic smoking/atypical pneumonitis. X-rays also showing pulmonary edema. Requested for BNP. 05/06/2018-patient has history of chronic COPD on home oxygen COPD secondary to chronic smoking and CT scan shows atypical pneumonitis sputum cultures are positive for gram-positive cocci in clusters on cefepime and levofloxacin waiting for the sensitivity report. Plan to use to extubate the patient today for possible. She getting Xopenex,ipratropium nebulizations and also on Spiriva. She is receiving IV Solu-Medrol 125 mg every 8 hours and I decreased the Solu-Medrol dose of 40 mg every 8 hours. 05/07/2018 patient has a history of COPD secondary to chronic smoking and sputum culture positive for staph aureus on cefepime time. She is also on IV Solu-Medr ol 40 mg daily 8 hours. Getting Xopenex ipratropium nebulizations also on Spiriva. Plan is to continue the present management. 05/08/2018-patient has history of COPD secondary to chronic smoking. Sputum culture positive for staph aureus. On IV Solu-Medrol every 8 hours. She is on a Xopenex, ipratropium, Spiriva. Plan is to decrease the Solu-Medrol to 40 mg every 12 hours. 05/09/2018-patient has history of COPD secondary to chronic smoking. Sputum culture positive for staph aureus. Completed 1 week course of cefepime. Patient presently on IV Solu-Medrol 40 mg every 12 hours and it was decreased to daily. Is to continue Xopenex, ipratropium nebulizations and Spiriva inhalation daily. Patient continues to smoke and smoking counseling was provided. 05/10/2018-patient has history of COPD secondary to chronic smoking. Sputum culture positive for staph aureus. She is afebrile for the last 3-4 days. She is off the antibiotics. I discontinued IV Solu-Medrol today started on predn isone 10 mg p.o. twice a day, will continue Xopenex and ipratropium nebulizations. She is also receiving Spiriva inhalation 1 puff daily. 05/11/2018-patient has history of COPD secondary to chronic smoking strongly advised to quit smoking sputum cultures positive for staph aureus she is off the antibiotics and she is afebrile probably plan to discharge her tomorrow. 05/12/2018 patient has history of COPD secondary to chronic smoking. She was admitted with acute on chronic respiratory failure. She was treated with IV Solu-Medrol, Xopenex nebulizations on ipratropium nebulizations. Patient was advised to continue home oxygen at 2 L nasal cannula, advised to quit smoking, advised to continue to use ipratropium and Xopenex nebulizations at home. (4) Smoker Is this a current diagnosis for this admission?: Yes Summary: 05/12/2018 patient is a chronic smoker she was given nicotine patch during the hospital stay here, patient does not want any nicotine patches to take home. Again smoking counseling was provided. - Additional Information Resuscitation Status: Full Code Discharge Diet: Cardiac Discharge Activity: Activity As Tolerated Prescriptions: Prednisone [Deltasone 10 mg Tablet] 10 mg PO BID #30 tablet Home Medications: Aripiprazole [Abilify 5 mg Tablet] 5 mg PO DAILY 01/20/18 Baclofen [Baclofen 10 mg Tablet] 10 mg PO Q12 01/20/18 Buprenorphine HCl/Naloxone HCl [Suboxone 8 mg-2 mg Sl Film] 2 film SL DAILY MDD 3 FILMS 01/20/18 Citalopram Hydrobromide [Celexa 40 mg Tablet] 40 mg PO DAILY 01/20/18 Doxepin HCl 100 mg PO QHS MDD 200 MG 01/20/18 Hydroxyzine HCl [Atarax 25 mg Tablet] 25 mg PO Q8HP PRN 05/03/18 Ipratropium/Albuterol Sulfate [Combivent Respimat 4 gm Mdi] 1 puff IH Q6HP PRN MDD 6 PUFFS 05/03/18 Levothyroxine Sodium [Synthroid 0.05 mg Tablet] 50 mcg PO Q6AM 05/03/18 Ropinirole HCl [Requip 2 mg Tablet] 2 mg PO DAILY 05/03/18 Aripiprazole [Abilify 5 mg Tablet] 5 mg PO DAILY tablet 05/12/18 Citalopram Hydrobromide [Celexa 20 mg Tablet] 40 mg PO DAILY tablet 05/12/18 Fluticasone/Salmeterol [Fluticasone-Salmeterol 113-14] 1 each IH .Q12 05/12/18 Prednisone [Deltasone 10 mg Tablet] 10 mg PO BID #30 tablet 05/12/18 Tiotropium [place] [Spiriva Handihaler 5 Cap/Kit (18 Mcg/Cap)] 1 cap IH DAILY kit 05/12/18 Tolterodine Tartrate [Detrol 1 mg Tablet] 2 mg NG Q12 tablet 05/12/18 History of Present Illness History of Present Illness: PIEDAD GILES is a 62 year old female with a past medical history of oxygen dependent COPD, chronic pain, anxiety and depression. Presents to the emergency room with acute on chronic respiratory failure found to have a PCO2 of 90 and intubated for altered mental status. She is referred to the hospitalist for admission. Physical Exam Vital Signs: Temp Pulse Resp BP Pulse Ox 98.6 F 90 17 129/61 H 91 L 05/12/18 08:17 05/12/18 08:54 05/12/18 08:54 05/12/18 08:17 05/12/18 08:54 Intake & Output 05/11/18 05/12/18 05/13/18 06:59 06:59 06:59 Intake Total 670 775 Output Total 1900 Balance -1230 775 Weight 52.8 kg 51.8 kg General appearance: PRESENT: no acute distress, thin Head exam: PRESENT: atraumatic Eye exam: PRESENT: PERRLA Mouth exam: PRESENT: dry mucosa Teeth exam: PRESENT: poor dentation Neck exam: ABSENT: carotid bruit, JVD, lymphadenopathy, thyromegaly Respiratory exam: PRESENT: decreased breath sounds Cardiovascular exam: PRESENT: tachycardia GI/Abdominal exam: PRESENT: normal bowel sounds, soft. ABSENT: distended, guarding, mass, organolmegaly, rebound, tenderness Neurological exam: PRESENT: alert, awake, oriented to person, oriented to place, oriented to time, oriented to situation, CN II-XII grossly intact. ABSENT: motor sensory deficit Psychiatric exam: PRESENT: appropriate affect, normal mood. ABSENT: homicidal ideation, suicidal ideation Results Laboratory Results: 05/12/18 06:20 05/12/18 06:20 05/12/18 05/12/18 06:20 06:20 WBC 11.6 H RBC 3.83 Hgb 11.1 L Hct 33.9 L MCV 89 MCH 29.1 MCHC 32.9 RDW 15.5 H Plt Count 172 Seg Neutrophils % 71.2 Lymphocytes % 18.8 Monocytes % 8.7 Eosinophils % 1.0 Basophils % 0.3 Absolute Neutrophils 8.2 Absolute Lymphocytes 2.2 Absolute Monocytes 1.0 Absolute Eosinophils 0.1 Absolute Basophils 0.0 Sodium 134.1 L Potassium 3.8 Chloride 94 L Carbon Dioxide 38 H Anion Gap 2 L BUN 12 Creatinine 0.50 L Est GFR ( Amer) > 60 Est GFR (Non-Af Amer) > 60 Glucose 76 Calcium 9.2 Magnesium 1.6 Total Bilirubin 0.6 AST 23 ALT 40 Alkaline Phosphatase 44 Total Protein 5.5 L Albumin 3.3 L 05/03/18 05/03/18 04:10 04:10 Troponin I < 0.012 NT-Pro-B Natriuret Pep 259 Impressions: Chest CT 05/03/18 00:00 IMPRESSION: Limited airspace disease in the anterior right upper lobe. Pneumonia versus atelectasis. Chest X-Ray 05/10/18 00:00 IMPRESSION: NO ACUTE RADIOGRAPHIC FINDING IN THE CHEST. Qualifiers - * PATIENT BEING DISCHARGED WITH ANY OF THE FOLLOWING DIAGNOSIS: No VTE patient discharged on overlapping Therapy?: No
[2018-05-12 13:48] VITALS: BP 149/81
== END 2018-05-12 15:17 | disposition home or self-care (01) | DRG 207 ==
LOC: ER 04:06 → EH 06:54 → ICU 10:17 → 3S 05-09 15:33
PROVIDERS: ADMIT Internal Medicine; ATTEND Internal Medicine
PROC: 5A1955Z Respiratory Ventilation, Greater than 96 Consecutive Hours (ICD-10-PCS; principal; 2018-05-03)
PROC: 0BH17EZ Insertion of Endotracheal Airway into Trachea, Via Natural or Artificial Opening (ICD-10-PCS; 2018-05-03)
PROC: 02HV33Z Insertion of Infusion Device into Superior Vena Cava, Percutaneous Approach (ICD-10-PCS; 2018-05-04)
DX: J96.22 Acute and chronic respiratory failure with hypercapnia (principal); J44.1 Chronic obstructive pulmonary disease with (acute) exacerbation; F17.200 Nicotine dependence, unspecified, uncomplicated; E03.9 Hypothyroidism, unspecified; I10 Essential (primary) hypertension; E11.9 Type 2 diabetes mellitus without complications; F31.9 Bipolar disorder, unspecified; F41.9 Anxiety disorder, unspecified; B95.61 Methicillin susceptible Staphylococcus aureus infection as the cause of diseases classified elsewhere; J96.21 Acute and chronic respiratory failure with hypoxia; I87.2 Venous insufficiency (chronic) (peripheral); I25.2 Old myocardial infarction; Z88.8 Allergy status to other drugs, medicaments and biological substances; Z90.49 Acquired absence of other specified parts of digestive tract; Z99.81 Dependence on supplemental oxygen; Z71.6 Tobacco abuse counseling; Z79.890 Hormone replacement therapy; Z79.899 Other long term (current) drug therapy
CPT/HCPCS: 36415; 71045; 71250; 80048; 80053; 80069; 81001; 82803; 83605; 83735; 83880; 84484; 85025; 87040; 87070; 87077; 87086; 87186; 87205; 93005; 93010; 94002; 94003; 94640; 94660; 94667; 94668; 94799; 99291; C1751; J0330; J0692; J1642; J1644; J1956; J2060; J2250; J2704; J2920; J2930; J3490; J7030; J7512; J7620; S0164

== ENCOUNTER 2019-08-20 00:04 | Inpatient (IN) | payer MEDICARE, MEDICAID ==
[2019-08-20] MEDS ORDERED: PROPOFOL 1,000 MG/100 ML INFUS..BTL IV PRN (00:10)
--- NOTE | 2019-08-20 00:25 | ER Document Report ---
ED General - General Stated Complaint: RESPIRTORY DISTRESS Time Seen by Provider: 08/20/19 00:10 Primary Care Provider: QIAN MCGEE FNP-C [Primary Care Provider] - Follow up as needed Information source: Patient, Emergency Med Personnel Notes: 64-year-old female arrives by EMS intubated after receiving fentanyl and Versed and ketamine dropping her blood pressure. They did intubate her because the patient reports she has COPD and smokes a pack of cigarettes per day since teenage years she has been using nebulized treatments all morning and afternoon and called EMS late this evening because of her dyspnea. Patient reports she been intubated 58 times prior to EMS arrival. EMS tried magnesium a nd breathing treatments prior to their intubation of the patient prior to arrival. Patient allegedly uses 6 L of O2 per minute patient has a history of transaminitis as well as COPD with exacerbation and leukocytosis pneumonia CHF hypercapnia depression bipolar disease hypotension cigarette smoker abuse hyper magnesium syndrome and Sirs. TRAVEL OUTSIDE OF THE [place] IN LAST 30 DAYS: No - HPI Onset: Just prior to arrival - Related Data Allergies/Adverse Reactions: zolpidem [From Ambien] Adverse Reaction (Verified 06/03/17 20:55) Past Medical History - General Information source: Emergency Med Personnel - Social History Smoking Status: Current Every Day Smoker Cigarette use (# per day): Yes Chew tobacco use (# tins/day): No Smoking Education Provided: Yes Frequency of alcohol use: unknown Drug Abuse: Other - unknown Lives with: Family Family History: Reviewed & Not Pertinent Patient has suicidal ideation: No Patient has homicidal ideation: No - Past Medical History Cardiac Medical History: Reports: Hx Congestive Heart Failure, Hx Coronary Artery Disease, Hx Heart Attack, Hx Hypertension Pulmonary Medical History: Reports: Hx COPD, Hx Pneumonia, Hx Intubation, Hx Respiratory Failure Denies: Hx Tuberculosis Neurological Medical History: Denies: Hx Seizures Endocrine Medical History: Reports: Hx Diabetes Mellitus Type 2, Hx Hypo thyroidism Renal/ Medical History: Denies: Hx Peritoneal Dialysis Musculoskeletal Medical History: Reports Hx Fibromyalgia Psychiatric Medical History: Reports: Hx Bipolar Disorder, Hx Depression Past Surgical History: Reports: Hx Appendectomy, Hx Cardiac Catheterization, Hx Cardiac Surgery, Hx Section. Denies: Hx Pacemaker - Immunizations Hx Diphtheria, Pertussis, Tetanus Vaccination: Yes Hx Pneumococcal Vaccination: 04/16/09 Review of Systems - Review of Systems Constitutional: Weakness EENT: See HPI Cardiovascular: See HPI, Orthopnea, Dyspnea, Dizziness, Lightheaded Respiratory: See HPI, Cough - He is particularly and he, Short of breath - Really want, Wheezing Gastrointestinal: See HPI Genitourinary: No symptoms reported Female Genitourinary: No symptoms reported Musculoskeletal: No symptoms reported Skin: No symptoms reported Hematologic/Lymphatic: No symptoms reported Neurological/Psychological: See HPI, Weakness Physical Exam - Vital signs Vitals: Pulse Ox 100 08/20/19 00:08 Interpretation: Hypotensive - General General appearance: Unresponsive - Status post Versed and fentanyl - HEENT Head: Normocephalic, Atraumatic Eyes: Normal Pupils: PERRL Pharynx: Normal Neck: Normal - Respiratory Respiratory status: Respiratory distress, Depressed respirations, Tachypnea Chest status: Nontender Breath sounds: Wheezing Chest palpation: Normal - Cardiovascular Rhythm: Regular Heart sounds: Normal auscultation Murmur: No - Abdominal Inspection: Normal Distension: No distension Bowel sounds: Normal Tenderness: Nontender Organomegaly: No organomegaly - Back Back: Normal - Extremities General upper extremity: Normal inspection General lower extremity: Normal inspection - Neurological Neuro grossly intact: No Cognition: Other - intubated status post fentanyl Versed and propofol [place] Coma Scale Eye Opening: None [place] Coma Scale Verbal: None [place] Coma Scale Motor: None [place] Coma Scale Total: 3 Speech: Other - none Cerebellar coordination: Other - none Sensory: Normal Course - Vital Signs Vital signs: Temp Pulse Resp BP Pulse Ox 96.4 F L 100 08/20/19 00:56 08/20/19 00:08 - Laboratory Result Diagrams: 08/20/19 00:25 08/20/19 00:25 Laboratory results interpreted by me: 08/20/19 08/20/19 08/20/19 00:25 00:25 00:25 WBC 11.7 H RBC 3.61 L Hgb 10.9 L Hct 32.6 L RDW 14.7 H [place] % (Auto) 13.2 H Absolute Monos (auto) 1.6 H Carbonic Acid ABG pCO2 ABG pO2 ABG HCO3 ABG Total CO2 ABG O2 Saturation Sodium 129.3 L Chloride 88 L Carbon Dioxide 38 H Anion Gap 3 L BUN 26 H Calcium 8.1 L Magnesium NT-Pro-B Natriuret Pep 818 H Total Protein 5.8 L Albumin 3.1 L 08/20/19 08/20/19 00:25 00:25 WBC RBC Hgb Hct RDW [place] % (Auto) Absolute Monos (auto) Carbonic Acid 2.07 H ABG pCO2 68.8 H ABG pO2 150.3 H ABG HCO3 38.7 H ABG Total CO2 40.8 H ABG O2 Saturation 98.8 H Sodium Chloride Carbon Dioxide Anion Gap BUN Calcium Magnesium 3.9 H NT-Pro-B Natriuret Pep Total Protein Albumin - Diagnostic Test Radiology reviewed: Reports reviewed Critical Care Note - Critical Care Note Total time excluding time spent on procedures (mins): 90 Comments: I spoke with Mayi Roy her daughter at [phone] at 00 50 hours and advised her of patient's condition. She thinks her mother be susceptible to COVID and would like her tested. She also reports she is only had 61 intubations. I had also spoken to tobacco hanger Jeffrey Goldman shortly after patient arrival. I again spoke with Jeffrey at 0 140 and he advises he will accept the patient Discharge - Discharge Clinical Impression: COPD with acute exacerbation, Endotracheally intubated, High magnesium levels Condition: Fair Disposition: ADMITTED INPATIENT Admitting Provider: tiffanie Referrals: QIAN MCGEE, [employer]-C [Primary Care Provider] - Follow up as needed
[2019-08-20 00:40] LABS: ABSOLUTE BASOPHILS # (AUTO) 0.1 10^3/uL (0.0-0.2); ABSOLUTE LYMPHOCYTES (AUTO) 2.6 10^3/uL (0.5-4.7); ABSOLUTE MONOCYTES (AUTO) 1.6 10^3/uL (0.1-1.4); ABSOLUTE NEUT (AUTO) 7.5 10^3/uL (1.7-8.2); BASOPHILS % (AUTO) 0.6 % (0-2); EOSINOPHILS % (AUTO) 0.3 % (0-6); HEMATOCRIT 32.6 % (36.0-47.0); HEMOGLOBIN 10.9 g/dL (12.0-15.5); LYMPHOCYTES % (AUTO) 22.2 % (13-45); MEAN CORPUSCULAR HEMOGLOBIN 30.2 pg (27.0-33.4); MEAN CORPUSCULAR HGB CONC 33.5 g/dL (32.0-36.0); MEAN CORPUSCULAR VOLUME 90 fl (80-97); MONOCYTES % (AUTO) 13.2 % (3-13); PLATELET COUNT 208 10^3/uL (150-450); RED BLOOD COUNT 3.61 10^6/uL (3.72-5.28); RED CELL DISTRIBUTION WIDTH 14.7 % (11.5-14.0); SEGMENTED NEUTROPHILS % (AUTO) 63.7 % (42-78); TOTAL CELLS COUNTED % (AUTO) 100 %; WHITE BLOOD COUNT 11.7 10^3/uL (4.0-10.5)
[2019-08-20 00:45] LABS: ARTERIAL BLOOD BASE EXCESS 10.7 mmol/L; ARTERIAL BLOOD H2CO3 2.07 mmol/L (1.05-1.35); ARTERIAL BLOOD HCO3 38.7 mmol/L (20-24); ARTERIAL BLOOD O2 SATURATION 98.8 % (94-98); ARTERIAL BLOOD PCO2 68.8 mmHg (35-45); ARTERIAL BLOOD PH 7.37 (7.35-7.45); ARTERIAL BLOOD PO2 150.3 mmHg (80-100); ARTERIAL BLOOD TOTAL CO2 40.8 mmol/L (21-25)
[2019-08-20 00:48] LABS: ARTERIAL BLOOD FIO2 35%
[2019-08-20] MEDS ORDERED: NALOXONE HCL INJ/PF 0.4 MG/1 ML SDV IV ONE (00:48)
[2019-08-20 00:52] LABS: APPEARANCE,URINE CLEAR; BILIRUBIN,URINE NEGATIVE (NEGATIVE); COLOR,URINE YELLOW; GLUCOSE, URINE NEGATIVE (NEGATIVE); KETONES,URINE NEGATIVE (NEGATIVE); LEUKOCYTE ESTERASE,URINE NEGATIVE (NEGATIVE); NITRITE,URINE NEGATIVE (NEGATIVE); PROTEIN,URINE NEGATIVE (NEGATIVE); URINE SPECIFIC GRAVITY 1.014; UROBILINOGEN,URINE NEGATIVE mg/dL (<2.0)
[2019-08-20 01:05] LABS: ALBUMIN 3.1 g/dL (3.5-5.0); ALKALINE PHOSPHATASE 50 U/L (38-126); ASPARTATE AMINO TRANSFERASE 22 U/L (14-36); BILIRUBIN,TOTAL 0.4 mg/dL (0.2-1.3); BLOOD UREA NITROGEN 26 mg/dL (7-20); CALCIUM 8.1 mg/dL (8.4-10.2); CARBON DIOXIDE 38 mmol/L (22-30); CHLORIDE 88 mmol/L (98-107); GLUCOSE 89 mg/dL (75-110); POTASSIUM 4.5 mmol/L (3.6-5.0); TOTAL PROTEIN 5.8 g/dL (6.3-8.2); URINE AMPHETAMINES SCREEN NEGATIVE; URINE BARBITURATES SCREEN NEGATIVE; URINE COCAINE SCREEN NEGATIVE; URINE MARIJUANA (THC) SCREEN NEGATIVE; URINE METHADONE SCREEN NEGATIVE; URINE PHENCYCLIDINE SCREEN NEGATIVE
[2019-08-20 01:07] LABS: URINE BENZODIAZEPINES SCREEN UNCONFIRMED POSITIVE
[2019-08-20 01:12] LABS: ANION GAP 3 (5-19)
--- NOTE | 2019-08-20 01:26 | RADIOLOGY REPORT (SQ) ---
CLINICAL INDICATION: post intubation. TECHNIQUE: A single portable AP view was obtained of the chest at 0046 hours. COMPARISON: May 10, 2018. FINDINGS: The cardiomediastinal silhouette is enlarged but stable. The lungs are grossly clear. No significant pleural fluid. No pneumothorax. Endotracheal tube tip in good position. Nasogastric tube tip projects over the stomach, sidehole projects over the distal esophagus. This is satisfactory for aspiration only. IMPRESSION: Satisfactory placement of endotracheal tube. Nasogastric tube tip projects over the stomach, sidehole projects of the esophagus. This is satisfactory for aspiration only. Would need to be advanced approximately 8 cm for the side hole to be within the stomach.
[2019-08-20] MEDS ORDERED: VASOPRESSIN INJ 20 UNIT/1 ML VIAL ONE (03:11)
[2019-08-20] MEDS ORDERED: IPRATROPIUM/ALBUTEROL 0.5-2.5 MG/3 ML AMPUL NEB ONE (03:28)
[2019-08-20] MEDS ORDERED: ALBUTEROL SULFATE 0.083% NEB 2.5 MG/3 ML AMPUL NEB PRN (04:22)
[2019-08-20] MEDS ORDERED: NORMAL SALINE 1000 ML 1,000 ML IV PRN (04:28)
[2019-08-20 04:52] LABS: ARTERIAL BLOOD BASE EXCESS 8.1 mmol/L; ARTERIAL BLOOD H2CO3 2.28 mmol/L (1.05-1.35); ARTERIAL BLOOD PH 7.31 (7.35-7.45); ARTERIAL BLOOD PO2 46.2 mmHg (80-100); ARTERIAL BLOOD TOTAL CO2 39.3 mmol/L (21-25)
[2019-08-20 04:55] LABS: ARTERIAL BLOOD FIO2 45%
[2019-08-20 04:56] LABS: ARTERIAL BLOOD PCO2 75.7 mmHg (35-45)
[2019-08-20] MEDS: METHYLPREDNISOLONE INJ 40 MG/1 ML SDV IV SCH ×4 (05:05→22:13)
[2019-08-20] MEDS: FAMOTIDINE INJ/PF 20 MG/2 ML SDV IV SCH ×3 (05:06→22:13)
[2019-08-20] MEDS: ARIPIPRAZOLE 5 MG TABLET NG SCH (05:06)
[2019-08-20] MEDS: CITALOPRAM HYDROBROMIDE 20 MG TABLET NG SCH (05:06)
[2019-08-20] MEDS ORDERED: DEXTROSE 40% GEL 15 GM TUBE PO PRN ×2 (05:19)
[2019-08-20] MEDS ORDERED: GLUCAGON,HUMAN RECOMB 1 MG INJ IM PRN (05:19)
[2019-08-20] MEDS ORDERED: DEXTROSE 50%-WATER 25 GM/50 ML DISP.SYRIN IV PRN ×2 (05:19)
[2019-08-20] MEDS ORDERED: HYDROMORPHONE HCL INJ/PF 2 MG/ML AMPULE IV PRN (06:22)
[2019-08-20] MEDS: DEXMEDETOMIDINE IN 0.9 % NACL 400 MCG/100 ML RTUPB IV PRN ×3 (06:26→13:42)
[2019-08-20] MEDS: INSULIN REG, HUMAN 100 UNIT/ML 3 ML VIAL (PYX) SUBCUT SCH ×3 (06:41→17:24)
--- NOTE | 2019-08-20 06:41 | CRITICAL CARE ADMISSION REPORT ---
HPI Date:: 08/20/19 Time:: 03:30 Reason for ICU Reason:: acute on chronic respiratory failure due to hypercapnia HPI: Rhianna Leahy is a 64-year-old female with a past medical history significant for bipolar with depression, chronic pain/fibromyalgia, type 2 diabetes, h ypothyroidism, hypertension, [place], diastolic CHF, CAD s/p coronary stent x2, and chronic respiratory failure due to COPD on 3 L home O2 who reportedly used nebulizers all day at home due to increased dyspnea for which she called EMS. EMS administered magnesium IV and a Duo-Neb without resolution of symptoms resulting in a field intubation prior to arrival. Current smoking tobacco abuse. To note, Mrs. Leahy has been intubated many times in the past. Unable to obtain review of systems at this time due to intubation and sedation. ICU team was consulted for acute on chronic respiratory failure with management of the mechanical ventilator for which she will be admitted to ICU. History obtained from:: medical record, ER physician - Diagnosis/Plan (1) Acute and chronic respiratory failure with hypercapnia Is this a current diagnosis for this admission?: Yes Plan: Patient with elevated peak airway pressures despite suction, + wheezing bilaterally. Changed to pressure control, administered Duo-Neb, and increased minute ventilation while at bedside with decrease in PiP to 32 and Pplat is 22. Will repeat ABG 04:15 am. Re-assess ventilator/patient after above. Starting IV steroids and empiric Abx. Change Propofol to Dexmedetomidine as able. (2) COPD with acute exacerbation Is this a current diagnosis for this admission?: Yes Plan: Likely COPD exacerbation given wheezing. Unknown if was experiencing increase in secretions. Sounds like there was reportedly an increase in home O2 requirements to 6L from 3L, though I cannot confirm this. Start Solu-medrol 40 mg q8h Empiric Ceftriaxone after cultures obtained. COVID rapid test of the nares performed by the ED and is negative. Though a lung base specimen is preferred when intubated, the CXR does not demonstrate bibasilar or lateral viral opacity pattern. However, this alone does not exclude COVID. Takes Ventolin, Hydroxyzine, Prednisone, Fluticasone at home. (3) Tobacco abuse disorder Is this a current diagnosis for this admission?: Yes Plan: Provide cessation counseling prior to discharge. May need nicotine patch while inpatient. (4) Hx of congestive heart failure Is this a current diagnosis for this admission?: No Plan: Not a current CHF exacerbation. Echo from 01/2018 with LVEF 60% and grade 1/4 diastolic dysfunction. POCUS performed by myself demonstrates full IVC without any significant respirop hasic changes, no significant wall motion abnormalities of the ventricles, overall with good cardiac contractility. (5) HTN (hypertension) Qualifiers: Hypertension type: essential hypertension Qualified Code(s): I10 - Essential (primary) hypertension Is this a current diagnosis for this admission?: Yes Plan: Resume home anti-hypertensive therapy when off sedation and more clinically appropriate. Home meds are Amlodipine, Furosemide, and Carvedilol. (6) Coronary artery disease Qualifiers: Coronary Disease-Associated Artery/Lesion type: three affiliated artery Associated angina: angina presence unspecified Is this a current diagnosis for this admission?: No (7) HLD (hyperlipidemia) Qualifiers: Hyperlipidemia type: unspecified Qualified Code(s): E78.5 - Hyperlipidemia, unspecified Is this a current diagnosis for this admission?: Yes Plan: resume Lipitor when extubated (8) Diabetes mellitus, type II Qualifiers: Diabetes mellitus prison insulin use: unspecified prison insulin use status Is this a current diagnosis for this admission?: Yes Plan: Insulin sliding scale every 6 hours. (9) Hypothyroidism Qualifiers: Hypothyroidism type: unspecified Qualified Code(s): E03.9 - Hypothyroidism, unspecified Is this a current diagnosis for this admission?: Yes Plan: Resume Levothyroxine when extubated (10) Leukocytosis Qualifiers: Leukocytosis type: unspecified Qualified Code(s): D72.829 - Elevated white blood cell count, unspecified Is this a current diagnosis for this admission?: Yes Plan: Senior-culture, empiric Ceftriaxone for COPD exacerbation, narrow/dc Abx when able. AM CBC Leukocytosis could be from Prednisone use, but patient has had mild leukocytosis in the past with clear CXR for which a culture returned with MSSA of the sputum. Better to initiate early empiric therapy in the setting of a likely COPD exacerbation. (11) Bipolar disorder with depression Is this a current diagnosis for this admission?: Yes Plan: Takes Celexa, Abilify, Doxepin for which I will order now via NG. QTc 460 ms upon admission. (12) Chronic pain Qualifiers: Chronic pain type: chronic pain syndrome Qualified Code(s): G89.4 - Chronic pain syndrome Is this a current diagnosis for this admission?: Yes Plan: Suspect due to fibromyalgia. Takes Suboxone, Gabapentin, and Baclofen at home. Will resume Gabapentin for now with prn Dilaudid. (13) Fibromyalgia Is this a current diagnosis for this admission?: Yes Plan: Resume some home pain medications and appropriate. May utilize prn IV opioids at this time until extubated. Will consider pain medication via NG tube as well. (14) Restless leg syndrome Is this a current diagnosis for this admission?: Yes Plan: Takes Requip which I will resume NG now. (15) Hypermagnesemia Is this a current diagnosis for this admission?: Yes Plan: Reportedly has hypermagnesemia at baseline and also received IV magnesium via EMS today. Level is not dangerous at this time and can simply be observed. Past Medical History Past Medical History: Sedated, data auto-populated from previous medical record documentation. Cardiac Medical History: Reports: Congestive Heart Failure, Coronary Artery Disease, Myocardial Infarction, Hypertension Pulmonary Medical History: Reports: Chronic Obstructive Pulmonary Disease (COPD), Intubation, Pneumonia, Respiratory Failure Denies: Tuberculosis Neurological Medical History: Denies: Seizures Endocrine Medical History: Reports: Diabetes Mellitus Type 2, Hypothyroidism Musculoskeltal Medical History: Reports: Fibromyalgia Psychiatric Medical History: Reports: Bipolar Disorder, Depression Past Surgical History Past Surgical History: Sedated, data auto-populated from previous medical record documentation. Past Surgical History: Reports: Appendectomy, Cardiac Catheterization, Section Denies: Pacemaker Social/Family History - Social History Social History Note: Sedated, data auto-populated from previous medical record documentation. Lives with: Family Smoking Status: Current Every Day Smoker Frequency of Alcohol Use: None Hx Recreational Drug Use: No Drugs: None Hx Prescription Drug Abuse: No - Medication/Allergies Home Medications: Aripiprazole [Abilify 5 mg Tablet] 5 mg PO DAILY 01/20/18 Baclofen [Baclofen 10 mg Tablet] 10 mg PO Q12 01/20/18 Buprenorphine HCl/Naloxone HCl [Suboxone 8 mg-2 mg Sl Film] 2 film SL DAILY MDD 3 FILMS 01/20/18 Citalopram Hydrobromide [Celexa 40 mg Tablet] 40 mg PO DAILY 01/20/18 Doxepin HCl 100 mg PO QHS MDD 200 MG 01/20/18 Hydroxyzine HCl [Atarax 25 mg Tablet] 25 mg PO Q8HP PRN 05/03/18 Ipratropium/Albuterol Sulfate [Combivent Respimat 4 gm Mdi] 1 puff IH Q6HP PRN MDD 6 PUFFS 05/03/18 Levothyroxine Sodium [Synthroid 0.05 mg Tablet] 50 mcg PO Q6AM 05/03/18 Ropinirole HCl [Requip 2 mg Tablet] 2 mg PO DAILY 05/03/18 Aripiprazole [Abilify 5 mg Tablet] 5 mg PO DAILY tablet 05/12/18 Citalopram Hydrobromide [Celexa 20 mg Tablet] 40 mg PO DAILY tablet 05/12/18 Fluticasone/Salmeterol [Fluticasone-Salmeterol 113-14] 1 each IH .Q12 05/12/18 Prednisone [Deltasone 10 mg Tablet] 10 mg PO BID #30 tablet 05/12/18 Tiotropium [place] [Spiriva Handihaler 5 Cap/Kit (18 Mcg/Cap)] 1 cap IH DAILY kit 05/12/18 Tolterodine Tartrate [Detrol 1 mg Tablet] 2 mg NG Q12 tablet 05/12/18 Allergies/Adverse Reactions: zolpidem [From Ambien] Adverse Reaction (Verified 06/03/17 20:55) Review of Systems ROS unobtainable: Due to endotracheal tube, Due to mental status Physical Exam Vital Signs: Temp Pulse Resp BP Pulse Ox 96.4 F L 15 102/58 L 98 08/20/19 00:56 08/20/19 02:00 08/20/19 02:00 08/20/19 04:09 Intake & Output 08/18/19 08/19/19 08/20/19 06:59 06:59 06:59 Intake Total 8 Balance 8 Weight 64.2 kg Weight/Height Weight 64.2 kg Height 5 ft 1 in General appearance: PRESENT: no acute distress, obese, well-nourished Head exam: PRESENT: atraumatic, normocephalic Eye exam: PRESENT: conjunctiva pink, EOMI, PERRLA. ABSENT: nystagmus, periorbital swelling, scleral icterus Ear exam: PRESENT: normal external ear exam Mouth exam: PRESENT: moist, neck supple, tongue midline Throat exam: PRESENT: other - ETT in place Neck exam: ABSENT: JVD, lymphadenopathy, tenderness, tracheal deviation Respiratory exam: PRESENT: crackles, symmetrical, unlabored, wheezes. ABSENT: accessory muscle use Cardiovascular exam: PRESENT: RRR, +S1, +S2. ABSENT: gallop, rubs, systolic murmur Pulses: PRESENT: normal radial pulses, +2 pedal pulses bilateral Vascular exam: PRESENT: normal capillary refill GI/Abdominal exam: PRESENT: hypoactive bowel sounds, soft. ABSENT: distended, guarding, Nolasco's sign, rigid, tenderness Rectal exam: PRESENT: deferred Gentrourinary exam: PRESENT: indwelling catheter Extremities exam: ABSENT: joint swelling, pedal edema Musculoskeletal exam: PRESENT: normal inspection. ABSENT: deformity, tenderness Neurological exam: PRESENT: other - sedated Psychiatric exam: PRESENT: other - sedated Skin exam: PRESENT: dry, intact, other - cool to touch. ABSENT: jaundice Tubes/Lines: PRESENT: Endotracheal Tube, Other - OG tube Laboratory/Radiographs Laboratory Results: 08/20/19 00:25 08/20/19 00:25 08/20/19 08/20/19 08/20/19 00:25 00:25 00:25 WBC 11.7 H RBC 3.61 L Hgb 10.9 L Hct 32.6 L MCV 90 MCH 30.2 MCHC 33.5 RDW 14.7 H Plt Count 208 Seg Neutrophils % 63.7 Carbonic Acid 2.07 H HCO3/H2CO3 Ratio 18:1 ABG pH 7.37 ABG pCO2 68.8 H ABG pO2 150.3 H ABG HCO3 38.7 H ABG O2 Saturation 98.8 H ABG Base Excess 10.7 FiO2 35% Sodium 129.3 L Potassium 4.5 Chloride 88 L Carbon Dioxide 38 H Anion Gap 3 L BUN 26 H Creatinine 0.79 Est GFR ( Amer) > 60 Glucose 89 Calcium 8.1 L Magnesium Total Bilirubin 0.4 AST 22 Alkaline Phosphatase 50 Total Protein 5.8 L Albumin 3.1 L Urine Color Urine Appearance Urine pH Ur Specific [place] Urine Protein Urine Glucose (UA) Urine Ketones Urine Blood Urine Nitrite Ur Leukocyte Esterase Urine WBC (Auto) Urine RBC (Auto) 08/20/19 08/20/19 00:25 00:25 WBC RBC Hgb Hct MCV MCH MCHC RDW Plt Count Seg Neutrophils % Carbonic Acid HCO3/H2CO3 Ratio ABG pH ABG pCO2 ABG pO2 ABG HCO3 ABG O2 Saturation ABG Base Excess FiO2 Sodium Potassium Chloride Carbon Dioxide Anion Gap BUN Creatinine Est GFR ( Amer) Glucose Calcium Magnesium 3.9 H Total Bilirubin AST Alkaline Phosphatase Total Protein Albumin Urine Color YELLOW Urine Appearance CLEAR Urine pH 6.0 Ur Specific [place] 1.014 Urine Protein NEGATIVE Urine Glucose (UA) NEGATIVE Urine Ketones NEGATIVE Urine Blood NEGATIVE Urine Nitrite NEGATIVE Ur Leukocyte Esterase NEGATIVE Urine WBC (Auto) 1 Urine RBC (Auto) 1 08/20/19 00:25 NT-Pro-B Natriuret Pep 818 H Impressions: Chest X-Ray 08/20/19 00:25 IMPRESSION: Satisfactory placement of endotracheal tube. Nasogastric tube tip projects over the stomach, sidehole projects of the esophagus. This is satisfactory for aspiration only. Would need to be advanced approximately 8 cm for the side hole to be within the stomach. EKG: NSR with no evidence of ST elevation/depression or T wave inversion All labs, radiographs, diagnostic studies and EKGs were personally reviewed: Yes In addition, reports of radiographic and diagnostic studies were read: Yes Critical Time Critical Time (minutes): 70 -: The care of a critically ill patient is dynamic. This note represents a static moment in the admission process. Orders and treatments may be given simultaneously and urgently, and time is not telephone claims representative of the treatment process. This patient requires Critical Care secondary to life threatening organ or limb dysfunction. Without Critical Care services, the patient is at risk for increased mortality and morbidity.
--- NOTE | 2019-08-20 06:55 | EKG REPORT ---
SEVERITY:- BORDERLINE ECG - SINUS RHYTHM WITH PACS BORDERLINE RIGHT AXIS DEVIATION BORDERLINE T ABNORMALITIES, ANT-LAT LEADS : Confirmed by: Gael Wilkins MD 20-Aug-2019 06:54:45
[2019-08-20 07:00] LABS: ARTERIAL BLOOD BASE EXCESS 7.2 mmol/L; ARTERIAL BLOOD H2CO3 1.44 mmol/L (1.05-1.35); ARTERIAL BLOOD HCO3 32.2 mmol/L (20-24); ARTERIAL BLOOD O2 SATURATION 81.8 % (94-98); ARTERIAL BLOOD PCO2 47.9 mmHg (35-45); ARTERIAL BLOOD PH 7.45 (7.35-7.45); ARTERIAL BLOOD PO2 44.4 mmHg (80-100); ARTERIAL BLOOD TOTAL CO2 33.7 mmol/L (21-25)
[2019-08-20] MEDS ORDERED: CEFTRIAXONE SODIUM 1,000 MG in DEXTROSE 5%-WATER 50 ML IV SCH (07:00)
[2019-08-20 07:01] LABS: ARTERIAL BLOOD FIO2 40%
[2019-08-20] MEDS: IPRATROPIUM/ALBUTEROL 0.5-2.5 MG/3 ML AMPUL NEB SCH ×3 (08:40→19:46)
--- NOTE | 2019-08-20 08:43 | RADIOLOGY REPORT (SQ) ---
EXAM DESCRIPTION: CHEST SINGLE VIEW IMAGES COMPLETED DATE/TIME: 08/20/2019 8:34 am REASON FOR STUDY: resp failure; r/o new infiltrate COMPARISON: 08/20/2019 EXAM PARAMETERS: NUMBER OF VIEWS: One view. TECHNIQUE: Single frontal radiographic view of the chest acquired. RADIATION DOSE: NA LIMITATIONS: None. FINDINGS: LUNGS AND PLEURA: Set is unchanged biapical opacities, likely scarring. No new airspace d isease. No pneumothorax. Trace bilateral effusions versus pleural thickening. MEDIASTINUM AND HILAR STRUCTURES: Stable. HEART AND VASCULAR STRUCTURES: Enlarged, stable. BONES: No acute findings. HARDWARE: Endotracheal tube tip is 3.1 cm above the benito. Advancement of the enteric tube with harley e port below the GE junction. OTHER: No other significant finding. IMPRESSION: Stable enlarged cardiac silhouette and trace bilateral effusions versus pleural thickeni ng. No new airspace disease. TECHNICAL DOCUMENTATION: JOB ID: [id number] 2010 [employer]- All Rights Reserved Reading location - IP/workstation name: [email or web address]
[2019-08-20] MEDS: CEFTRIAXONE 1 GM/D5W RTU 1 GM/50 ML RTUPB IV SCH (08:55)
[2019-08-20] MEDS: NORMAL SALINE 1000 ML 1,000 ML IV PRN ×2 (09:00→17:30)
[2019-08-20] MEDS ORDERED: CEFTRIAXONE 1 GM/D5W RTU 1 GM/50 ML RTUPB IV SCH (10:00)
[2019-08-20] MEDS: GABAPENTIN 300 MG CAPSULE NG SCH ×3 (11:08→17:23)
[2019-08-20] MEDS: ENOXAPARIN SODIUM INJ 40 MG/0.4 ML DISP.SYRIN SUBCUT SCH (11:08)
[2019-08-20] MEDS: MORPHINE SULFATE 10 MG/ML INJ IV SCH ×6 (12:23→22:44)
[2019-08-20] MEDS ORDERED: FENTANYL CITRATE INJ/PF 100 MCG/2 ML AMPUL ONE (12:57)
[2019-08-20] MEDS ORDERED: FENTANYL CITRATE INJ/PF 100 MCG/2 ML AMPUL IV ONE (13:03)
[2019-08-20] MEDS ORDERED: FUROSEMIDE INJ/PF 40 MG/4 ML SDV IV ONE (13:08)
[2019-08-20] MEDS ORDERED: MIDAZOLAM 2 MG/2 ML INJ IV ONE ×2 (13:21→14:51)
[2019-08-20 14:09] LABS: ARTERIAL BLOOD BASE EXCESS 4.1 mmol/L; ARTERIAL BLOOD HCO3 29.4 mmol/L (20-24); ARTERIAL BLOOD O2 SATURATION 87.7 % (94-98); ARTERIAL BLOOD PCO2 46.4 mmHg (35-45); ARTERIAL BLOOD PH 7.42 (7.35-7.45); ARTERIAL BLOOD PO2 52.9 mmHg (80-100); ARTERIAL BLOOD TOTAL CO2 30.8 mmol/L (21-25)
[2019-08-20 14:10] LABS: ARTERIAL BLOOD FIO2 30%
[2019-08-20] MEDS ORDERED: MIDAZOLAM 2 MG/2 ML INJ ONE (14:51)
[2019-08-20] MEDS: MIDAZOLAM HCL 50 MG/100 ML RTUINJ IV PRN (15:03)
[2019-08-20] MEDS: DOXEPIN HCL 10 MG CAPSULE NG SCH (22:10)
[2019-08-20] MEDS: ROPINIROLE HCL 2 MG TABLET NG SCH (22:10)
[2019-08-21] MEDS: MORPHINE SULFATE 10 MG/ML INJ IV SCH ×6 (00:52→10:58)
[2019-08-21] MEDS: INSULIN REG, HUMAN 100 UNIT/ML 3 ML VIAL (PYX) SUBCUT SCH ×4 (00:55→18:02)
[2019-08-21] MEDS: IPRATROPIUM/ALBUTEROL 0.5-2.5 MG/3 ML AMPUL NEB SCH ×4 (02:09→20:00)
[2019-08-21] MEDS: METHYLPREDNISOLONE INJ 40 MG/1 ML SDV IV SCH (05:58)
[2019-08-21] MEDS: NORMAL SALINE 1000 ML 1,000 ML IV PRN ×2 (06:13→19:13)
[2019-08-21] MEDS ORDERED: METHYLPREDNISOLONE INJ 40 MG/1 ML SDV IV ONE (07:47)
[2019-08-21] MEDS: CEFTRIAXONE 1 GM/D5W RTU 1 GM/50 ML RTUPB IV SCH (08:30)
[2019-08-21 08:42] LABS: ALBUMIN 3.3 g/dL (3.5-5.0); ALKALINE PHOSPHATASE 52 U/L (38-126); ASPARTATE AMINO TRANSFERASE 23 U/L (14-36); BILIRUBIN,TOTAL 0.4 mg/dL (0.2-1.3); BLOOD UREA NITROGEN 34 mg/dL (7-20); CARBON DIOXIDE 34 mmol/L (22-30); CHLORIDE 94 mmol/L (98-107); GLUCOSE 111 mg/dL (75-110); POTASSIUM 4.6 mmol/L (3.6-5.0); TOTAL PROTEIN 5.9 g/dL (6.3-8.2)
[2019-08-21 08:50] LABS: ANION GAP 3 (5-19)
[2019-08-21 09:03] LABS: ARTERIAL BLOOD H2CO3 1.85 mmol/L (1.05-1.35); ARTERIAL BLOOD HCO3 34.1 mmol/L (20-24); ARTERIAL BLOOD O2 SATURATION 69.9 % (94-98); ARTERIAL BLOOD PCO2 61.6 mmHg (35-45); ARTERIAL BLOOD PH 7.36 (7.35-7.45)
[2019-08-21 09:07] LABS: ARTERIAL BLOOD FIO2 35%
[2019-08-21] MEDS: GABAPENTIN 300 MG CAPSULE NG SCH ×3 (10:58→17:20)
[2019-08-21] MEDS: FAMOTIDINE INJ/PF 20 MG/2 ML SDV IV SCH ×2 (10:58→21:53)
[2019-08-21] MEDS: CITALOPRAM HYDROBROMIDE 20 MG TABLET NG SCH (10:58)
[2019-08-21] MEDS: ARIPIPRAZOLE 5 MG TABLET NG SCH (10:59)
[2019-08-21] MEDS: ENOXAPARIN SODIUM INJ 40 MG/0.4 ML DISP.SYRIN SUBCUT SCH (10:59)
[2019-08-21] MEDS: FENTANYL CITRATE INJ/PF 100 MCG/2 ML AMPUL ONE ×2 (11:27→13:21)
[2019-08-21] MEDS: FENTANYL CITRATE INJ/PF 100 MCG/2 ML AMPUL IV PRN ×3 (11:27→22:17)
[2019-08-21 11:49] LABS: ARTERIAL BLOOD BASE EXCESS 3.7 mmol/L; ARTERIAL BLOOD H2CO3 1.68 mmol/L (1.05-1.35); ARTERIAL BLOOD HCO3 30.4 mmol/L (20-24); ARTERIAL BLOOD O2 SATURATION 88.4 % (94-98); ARTERIAL BLOOD PCO2 55.9 mmHg (35-45); ARTERIAL BLOOD PH 7.35 (7.35-7.45); ARTERIAL BLOOD PO2 57.9 mmHg (80-100); ARTERIAL BLOOD TOTAL CO2 32.2 mmol/L (21-25)
[2019-08-21 11:50] LABS: ARTERIAL BLOOD FIO2 35
[2019-08-21] MEDS ORDERED: METHYLPREDNISOLONE INJ 40 MG/1 ML SDV IV SCH (14:00)
--- NOTE | 2019-08-21 14:01 | PDOC CRITICAL CARE PROG REPORT ---
General Date:: 08/21/19 ICU Day:: 2 Ventilator Day:: 2 Hospital Day:: 2 Resuscitation Status: Full Code Events in the past 12 to 24 Hours:: 08/19: This 64-year-old female smoker reportedly used nebulizers all day at home due to increased dyspnea for which she called EMS. EMS administered magnesium IV and a Duo-Neb without resolution of symptoms resulting in [id number] intubation prior to arrival. PAST MEDICAL HISTORY: bipolar with depression, chronic pain/fibromyalgia, type 2 diabetes, hypothyroidism, hypertension, [place], diastolic CHF, CAD s/p coronary stent x2, and chronic respiratory failure with multiple intubations due to COPD exacerbation, on 3 L home O2. 08/20: remains intubated. On PSV. Had over 2 L U/O after a single dose of Lasix yesterday. Vigorous cough and gag. On aerosols, SoluMedrol. Review of systems relevant to events:: Respiratory: acute on chronic respiratory failure, dyspnea, cough, sputum production Cardiovascular: volume overload Reason for ICU Addmission:: acute on chronic respiratory failure due to hypercapnia - Medications: Medications reviewed and adjusted accordingly: Yes Vasopressors:: None Sedation:: Versed/morphine Physical Exam Vital Signs: Temp Pulse Resp BP Pulse Ox 96.8 F L 82 16 117/63 93 08/20/19 04:05 08/21/19 07:40 08/21/19 11:41 08/21/19 11:41 08/21/19 11:41 Intake & Output 08/20/19 08/21/19 08/22/19 06:59 06:59 06:59 Intake Total 100 2539 50 Output Total 165 7005 480 Balance -65 -1286 -430 Weight 64.2 kg 63.1 kg Weight/Height Weight 63.1 kg Height 1.55 m General appearance: PRESENT: no acute distress, well-developed, well-nourished Eye exam: PRESENT: conjunctiva pink, EOMI, PERRLA. ABSENT: scleral icterus Mouth exam: PRESENT: moist, tongue midline Neck exam: ABSENT: carotid bruit, JVD, lymphadenopathy, thyromegaly Respiratory exam: PRESENT: rales, rhonchi Cardiovascular exam: PRESENT: RRR. ABSENT: diastolic murmur, rubs, systolic murmur Pulses: PRESENT: normal dorsalis pedis pul GI/Abdominal exam: PRESENT: normal bowel sounds, soft. ABSENT: distended, guarding, mass, organolmegaly, rebound, tenderness Extremities exam: PRESENT: full ROM. ABSENT: calf tenderness, clubbing, pedal edema Musculoskeletal exam: PRESENT: normal inspection. ABSENT: deformity Neurological exam: PRESENT: alert, awake, CN II-XII grossly intact. ABSENT: motor sensory deficit Skin exam: PRESENT: dry, intact, warm. ABSENT: cyanosis, rash Tubes/Lines: PRESENT: Endotracheal Tube Laboratory/Radiographs Laboratory Results: 08/20/19 00:25 08/21/19 08:12 08/20/19 08/21/19 08/21/19 13:54 08:12 08:50 Carbonic Acid 1.40 H 1.85 H HCO3/H2CO3 Ratio 21:1 18:1 ABG pH 7.42 7.36 ABG pCO2 46.4 H 61.6 H ABG pO2 52.9 L 39.0 L* ABG HCO3 29.4 H 34.1 H ABG O2 Saturation 87.7 L 69.9 L ABG Base Excess 4.1 7.0 FiO2 30% 35% Sodium 130.7 L Potassium 4.6 Chloride 94 L Carbon Dioxide 34 H Anion Gap 3 L BUN 34 H Creatinine 0.75 Est GFR ( Amer) > 60 Glucose 111 H Calcium 8.0 L Magnesium 2.1 Total Bilirubin 0.4 AST 23 Alkaline Phosphatase 52 Total Protein 5.9 L Albumin 3.3 L 08/21/19 11:38 Carbonic Acid 1.68 H HCO3/H2CO3 Ratio 18:1 ABG pH 7.35 ABG pCO2 55.9 H ABG pO2 57.9 L ABG HCO3 30.4 H ABG O2 Saturation 88.4 L ABG Base Excess 3.7 FiO2 35 Sodium Potassium Chloride Carbon Dioxide Anion Gap BUN Creatinine Est GFR ( Amer) Glucose Calcium Magnesium Total Bilirubin AST Alkaline Phosphatase Total Protein Albumin 08/20/19 05:15 Tracheal Aspirate Gram Stain - Final 08/20/19 05:15 Tracheal Aspirate Sputum Culture - Final GREATLY REDUCED NORMAL HUBERT 08/20/19 00:25 Blood Blood Culture (PCR) - Final Staphylococcus Species 08/20/19 08/20/19 08/21/19 00:25 07:14 08:12 NT-Pro-B Natriuret Pep 818 H 478 H 411 H Impressions: Chest X-Ray 08/20/19 08:00 IMPRESSION: Stable enlarged cardiac silhouette and trace bilateral effusions versus pleural thickening. No new airspace disease. All labs, radiographs, diagnostic studies and EKGs were personally reviewed: Yes In addition, reports of radiographic and diagnostic studies were read: Yes Assessment and Plan - Diagnosis (1) Acute and chronic respiratory failure with hypercapnia Is this a current diagnosis for this admission?: Yes Plan: Increase Solu-Medrol to 60 mg IV every 8 hours. Stop morphine. Start fentanyl 50 mcg IV every 2 hours as needed for sedation. Continue Versed. ASV trial. Check ABG. Vent settings will be titrated based on ABG results. I hope the patient will be liberated from mechanical ventilatory support in 24 to 48 hours. (2) COPD with acute exacerbation Is this a current diagnosis for this admission?: Yes Plan: Continue DuoNeb scheduled and albuterol as needed. Increase Solu-Medrol (see above). Empiric Rocephin. (3) Hyponatremia Is this a current diagnosis for this admission?: Yes Plan: Suspected to be due to volume overload and hypothyroidism. Diurese. Monitor serum sodium. (4) Elevated brain natriuretic peptide (BNP) level Is this a current diagnosis for this admission?: Yes Plan: Repeat BNP in a.m. (5) Restless leg syndrome Is this a current diagnosis for this admission?: Yes Plan: Continue Requip. (6) Tobacco abuse disorder Is this a current diagnosis for this admission?: Yes (7) Normocytic anemia Is this a current diagnosis for this admission?: Yes (8) HTN (hypertension) Qualifiers: Hypertension type: essential hypertension Qualified Code(s): I10 - Essential (primary) hypertension Is this a current diagnosis for this admission?: Yes Plan: Normotensive at this time. Home antihypertensive medications: Amlodipine, furosemide and carvedilol (9) COVID-19 ruled out by laboratory testing Is this a current diagnosis for this admission?: Yes (10) Hypothyroidism Qualifiers: Hypothyroidism type: unspecified Qualified Code(s): E03.9 - Hypothyroidism, unspecified Is this a current diagnosis for this admission?: Yes Plan: Resume Synthroid. Critical Time Critical Time (minutes): 60 Level of Care: ICU -: 1. The care of a critical patient is a dynamic process. This note is a advertising account representative synopsis but static in nature. The timeframe for treatments given in order is not necessarily the actual time these treatments may have been done. 2. This patient requires critical care secondary to ongoing requirements for therapy not offered or safe outside the critical care environment. Transfer to a lower level of care will result in altered life or limb morbidity and mortality. 3. Multidisciplinary rounds completed. 4. ABCDE bundle addressed.
[2019-08-21] MEDS: METHYLPREDNISOLONE INJ 125 MG/2 ML SDV IV SCH ×2 (14:19→21:53)
[2019-08-21] MEDS: LEVOTHYROXINE SODIUM 0.05 MG TABLET NG SCH (14:22)
[2019-08-21] MEDS: MIDAZOLAM HCL 50 MG/100 ML RTUINJ IV PRN (17:20)
[2019-08-21] MEDS: DOXEPIN HCL 10 MG CAPSULE NG SCH (21:52)
[2019-08-21] MEDS: ROPINIROLE HCL 2 MG TABLET NG SCH (21:52)
[2019-08-22] MEDS: INSULIN REG, HUMAN 100 UNIT/ML 3 ML VIAL (PYX) SUBCUT SCH ×5 (00:07→23:24)
[2019-08-22] MEDS: FENTANYL CITRATE INJ/PF 100 MCG/2 ML AMPUL IV PRN ×2 (01:19→05:13)
[2019-08-22] MEDS: IPRATROPIUM/ALBUTEROL 0.5-2.5 MG/3 ML AMPUL NEB SCH ×4 (02:12→19:47)
[2019-08-22] MEDS: LEVOTHYROXINE SODIUM 0.05 MG TABLET NG SCH (05:08)
[2019-08-22] MEDS: METHYLPREDNISOLONE INJ 125 MG/2 ML SDV IV SCH ×3 (05:08→21:07)
[2019-08-22 05:40] LABS: ARTERIAL BLOOD BASE EXCESS 3.2 mmol/L; ARTERIAL BLOOD H2CO3 1.59 mmol/L (1.05-1.35); ARTERIAL BLOOD HCO3 29.4 mmol/L (20-24); ARTERIAL BLOOD PCO2 52.8 mmHg (35-45); ARTERIAL BLOOD PH 7.36 (7.35-7.45); ARTERIAL BLOOD PO2 56.6 mmHg (80-100)
[2019-08-22 05:41] LABS: ARTERIAL BLOOD FIO2 35%
[2019-08-22] MEDS: NORMAL SALINE 1000 ML 1,000 ML IV PRN (07:19)
--- NOTE | 2019-08-22 08:06 | RADIOLOGY REPORT (SQ) ---
EXAM DESCRIPTION: CHEST SINGLE VIEW IMAGES COMPLETED DATE/TIME: 08/22/2019 7:50 am REASON FOR STUDY: COPD exacerbation, intubated COMPARISON: 08/20/2019 NUMBER OF VIEWS: One view. TECHNIQUE: Single frontal radiographic image of the chest acquired. LIMITATIONS: None. FINDINGS: LUNGS AND PLEURA: Stable appearance. MEDIASTINUM AND HILAR STRUCTURES: Stable heart size and mediastinal structures. HEART AND VASCULAR STRUCTURES: Stable appearance. SUPPORT DEVICES: Appropriate location without change. BONES: No acute findings. OTHER: No other significant finding. IMPRESSION: STABLE APPEARANCE OF THE CHEST. SUPPORT DEVICES UNCHANGED. TECHNICAL DOCUMENTATION: JOB ID: [id number] 2010 [employer]- All Rights Reserved Reading location - IP/workstation name: [email or web address]
[2019-08-22] MEDS: CEFTRIAXONE 1 GM/D5W RTU 1 GM/50 ML RTUPB IV SCH (09:08)
[2019-08-22] MEDS: GABAPENTIN 300 MG CAPSULE NG SCH ×2 (12:20→14:31)
[2019-08-22] MEDS: CITALOPRAM HYDROBROMIDE 20 MG TABLET NG SCH (12:20)
[2019-08-22] MEDS: ARIPIPRAZOLE 5 MG TABLET NG SCH (12:20)
[2019-08-22] MEDS: ENOXAPARIN SODIUM INJ 40 MG/0.4 ML DISP.SYRIN SUBCUT SCH (12:21)
[2019-08-22] MEDS: FAMOTIDINE INJ/PF 20 MG/2 ML SDV IV SCH ×2 (12:22→21:07)
[2019-08-22 13:09] LABS: BLOOD UREA NITROGEN 33 mg/dL (7-20); CALCIUM 8.4 mg/dL (8.4-10.2); CARBON DIOXIDE 28 mmol/L (22-30); GLUCOSE 105 mg/dL (75-110); POTASSIUM 4.5 mmol/L (3.6-5.0)
[2019-08-22 13:14] LABS: CHLORIDE 98 mmol/L (98-107)
[2019-08-22 13:16] LABS: ANION GAP 4 (5-19)
[2019-08-22 18:25] LABS: ANION GAP 9 (5-19); BLOOD UREA NITROGEN 32 mg/dL (7-20); CALCIUM 8.1 mg/dL (8.4-10.2); CARBON DIOXIDE 26 mmol/L (22-30); CHLORIDE 97 mmol/L (98-107); GLUCOSE 89 mg/dL (75-110); POTASSIUM 4.4 mmol/L (3.6-5.0)
[2019-08-22] MEDS: GABAPENTIN 300 MG CAPSULE PO SCH (18:48)
[2019-08-22] MEDS: DOXEPIN HCL 10 MG CAPSULE NG SCH (21:07)
[2019-08-22] MEDS: ROPINIROLE HCL 2 MG TABLET PO SCH (21:07)
[2019-08-23 00:17] LABS: ANION GAP 8 (5-19); BLOOD UREA NITROGEN 34 mg/dL (7-20); CALCIUM 8.4 mg/dL (8.4-10.2); CARBON DIOXIDE 28 mmol/L (22-30); CHLORIDE 97 mmol/L (98-107); GLUCOSE 153 mg/dL (75-110); POTASSIUM 4.4 mmol/L (3.6-5.0)
[2019-08-23] MEDS: ALBUTEROL SULFATE 0.083% NEB 2.5 MG/3 ML AMPUL NEB PRN ×3 (00:31→06:51)
[2019-08-23] MEDS: IPRATROPIUM/ALBUTEROL 0.5-2.5 MG/3 ML AMPUL NEB SCH ×4 (01:53→20:14)
[2019-08-23 05:19] LABS: HEMATOCRIT 33.3 % (36.0-47.0); HEMOGLOBIN 10.9 g/dL (12.0-15.5); MEAN CORPUSCULAR HEMOGLOBIN 29.2 pg (27.0-33.4); MEAN CORPUSCULAR HGB CONC 32.9 g/dL (32.0-36.0); MEAN CORPUSCULAR VOLUME 89 fl (80-97); PLATELET COUNT 235 10^3/uL (150-450); RED BLOOD COUNT 3.74 10^6/uL (3.72-5.28); RED CELL DISTRIBUTION WIDTH 14.7 % (11.5-14.0); WHITE BLOOD COUNT 15.1 10^3/uL (4.0-10.5)
[2019-08-23 05:26] LABS: ANION GAP 6 (5-19); BLOOD UREA NITROGEN 32 mg/dL (7-20); CALCIUM 8.5 mg/dL (8.4-10.2); CARBON DIOXIDE 28 mmol/L (22-30); CHLORIDE 98 mmol/L (98-107); GLUCOSE 140 mg/dL (75-110); POTASSIUM 4.1 mmol/L (3.6-5.0)
[2019-08-23] MEDS: INSULIN REG, HUMAN 100 UNIT/ML 3 ML VIAL (PYX) SUBCUT SCH ×3 (05:28→17:24)
[2019-08-23] MEDS: METHYLPREDNISOLONE INJ 125 MG/2 ML SDV IV SCH ×3 (05:43→23:03)
[2019-08-23] MEDS: LEVOTHYROXINE SODIUM 0.05 MG TABLET NG SCH (05:43)
[2019-08-23 05:52] LABS: ABSOLUTE LYMPHOCYTES# (MANUAL) 0.5 10^3/uL (0.5-4.7); ABSOLUTE MONOCYTES # (MANUAL) 0.8 10^3/uL (0.1-1.4); BAND NEUTROPHILS % (MANUAL) 2 % (3-5); BASOPHILS % (MANUAL) 0 % (0-2); EOSINOPHILS % (MANUAL) 0 % (0-6); LYMPHOCYTES % (MANUAL) 3 % (13-45); MONOCYTES % (MANUAL) 5 % (3-13); SEGMENTED NEUTROPHILS % (MAN) 90 % (42-78); TOTAL CELLS COUNTED 100
[2019-08-23 05:53] LABS: ANISOCYTOSIS 1+; PLATELET COMMENT ADEQUATE; POLYCHROMASIA 1+
--- NOTE | 2019-08-23 07:25 | PDOC CRITICAL CARE PROG REPORT ---
General Date:: 08/22/19 ICU Day:: 3 Ventilator Day:: 3 Hospital Day:: 3 Resuscitation Status: Full Code Events in the past 12 to 24 Hours:: 08/19: This 64-year-old female smoker reportedly used nebulizers all day at home due to increased dyspnea for which she called EMS. EMS administered magnesium IV and a Duo-Neb without resolution of symptoms resulting in [id number] intubation prior to arrival. PAST MEDICAL HISTORY: bipolar with depression, chronic pain/fibromyalgia, type 2 diabetes, hypothyroidism, hypertension, [place], diastolic CHF, CAD s/p coronary stent x2, and chronic respiratory failure with multiple intubations due to COPD exacerbation, on 3 L home O2. 08/20: remains intubated. On PSV. Had over 2 L U/O after a single dose of Lasix yesterday. Vigorous cough and gag. On aerosols, SoluMedrol. 08/21: On pressure support 03/20. RASS 0. The patient is indicating that she wants the ET tube removed. Currently on Solu-Medrol 60 mg IV every 8 hours along with aerosols. Review of systems relevant to events:: Respiratory: acute on chronic respiratory failure, dyspnea, cough, sputum production Cardiovascular: volume overload Reason for ICU Addmission:: acute on chronic respiratory failure due to hypercapnia - Medications: Medications reviewed and adjusted accordingly: Yes Physical Exam Vital Signs: Temp Pulse Resp BP Pulse Ox 96.8 F L 111 H 21 H 130/68 H 99 08/20/19 04:05 08/22/19 10:00 08/22/19 10:00 08/22/19 09:43 08/22/19 10:00 Intake & Output 08/21/19 08/22/19 08/23/19 06:59 06:59 06:59 Intake Total 2539 1141 968 Output Total 5215 1630 205 Balance -1286 -489 763 Weight 63.1 kg 63.1 kg Weight/Height Weight 63.1 kg Height 1.55 m General appearance: PRESENT: no acute distress, well-developed, well-nourished Head exam: PRESENT: atraumatic, normocephalic Eye exam: PRESENT: conjunctiva pink, EOMI, PERRLA. ABSENT: scleral icterus Neck exam: ABSENT: carotid bruit, JVD, lymphadenopathy, thyromegaly Respiratory exam: PRESENT: decreased breath sounds - but significantly increased air entry compared to yesterday, prolonged expiratory phas, rhonchi, wheezes. ABSENT: rales Cardiovascular exam: PRESENT: RRR. ABSENT: diastolic murmur, rubs, systolic murmur GI/Abdominal exam: PRESENT: normal bowel sounds, soft. ABSENT: distended, guarding, mass, organolmegaly, rebound, tenderness Extremities exam: PRESENT: full ROM. ABSENT: calf tenderness, clubbing, pedal edema Musculoskeletal exam: PRESENT: normal inspection. ABSENT: deformity, tenderness Neurological exam: PRESENT: alert, awake, CN II-XII grossly intact. ABSENT: motor sensory deficit Skin exam: PRESENT: dry, intact, warm. ABSENT: cyanosis, rash Tubes/Lines: PRESENT: Endotracheal Tube Laboratory/Radiographs Laboratory Results: 08/20/19 00:25 08/21/19 08:12 08/21/19 08/21/19 08/22/19 08:12 11:38 05:30 Carbonic Acid 1.68 H 1.59 H HCO3/H2CO3 Ratio 18:1 18:1 ABG pH 7.35 7.36 ABG pCO2 55.9 H 52.8 H ABG pO2 57.9 L 56.6 L ABG HCO3 30.4 H 29.4 H ABG O2 Saturation 88.4 L 88.0 L ABG Base Excess 3.7 3.2 FiO2 35 35% TSH 0.77 08/20/19 00:25 Blood Blood Culture (PCR) - Final Staphylococcus Species 08/20/19 05:15 Tracheal Aspirate Gram Stain - Final 08/20/19 05:15 Tracheal Aspirate Sputum Culture - Final GREATLY REDUCED NORMAL HUBERT 08/20/19 08/20/19 08/21/19 00:25 07:14 08:12 NT-Pro-B Natriuret Pep 818 H 478 H 411 H Impressions: Chest X-Ray 08/22/19 07:30 IMPRESSION: STABLE APPEARANCE OF THE CHEST. SUPPORT DEVICES UNCHANGED. All labs, radiographs, diagnostic studies and EKGs were personally reviewed: Yes In addition, reports of radiographic and diagnostic studies were read: Yes Assessment and Plan - Diagnosis (1) Acute and chronic respiratory failure with hypercapnia Is this a current diagnosis for this admission?: Yes Plan: PSV 8/5 (SBT) in anticipation of extubating to supplemental oxygen as needed to maintain SPO2 89 to 93%. Continue Solu-Medrol to 60 mg IV every 8 hours. Stop fentanyl. Stop Versed. (2) COPD with acute exacerbation Is this a current diagnosis for this admission?: Yes Plan: Continue DuoNeb scheduled and albuterol as needed. Continue Solu-Medrol. Continue Rocephin. Blood cultures (1 of 2) isolated coagulase-negative staphylococcal species, likely a contaminant. (3) Hyponatremia Is this a current diagnosis for this admission?: Yes Plan: Suspected to be due to volume overload and hypothyroidism. Diurese. Monitor serum sodium. (4) Elevated brain natriuretic peptide (BNP) level Is this a current diagnosis for this admission?: Yes (5) Restless leg syndrome Is this a current diagnosis for this admission?: Yes Plan: Continue Requip. (6) Tobacco abuse disorder Is this a current diagnosis for this admission?: Yes (7) Normocytic anemia Is this a current diagnosis for this admission?: Yes (8) HTN (hypertension) Qualifiers: Hypertension type: essential hypertension Qualified Code(s): I10 - Essential (primary) hypertension Is this a current diagnosis for this admission?: Yes (9) COVID-19 ruled out by laboratory testing Is this a current diagnosis for this admission?: Yes (10) Hypothyroidism Qualifiers: Hypothyroidism type: unspecified Qualified Code(s): E03.9 - Hypothyroidism, unspecified Is this a current diagnosis for this admission?: Yes Plan: Resume Synthroid. Critical Time Critical Time (minutes): 60 Level of Care: ICU -: 1. The care of a critical patient is a dynamic process. This note is a plastic products sales representative synopsis but static in nature. The timeframe for treatments given in order is not necessarily the actual time these treatments may have been done. 2. This patient requires critical care secondary to ongoing requirements for therapy not offered or safe outside the critical care environment. Transfer to a lower level of care will result in altered life or limb morbidity and mortality. 3. Multidisciplinary rounds completed. 4. ABCDE bundle addressed.
[2019-08-23] MEDS: CEFTRIAXONE 1 GM/D5W RTU 1 GM/50 ML RTUPB IV SCH (07:33)
--- NOTE | 2019-08-23 08:54 | RADIOLOGY REPORT (SQ) ---
EXAM DESCRIPTION: CHEST SINGLE VIEW IMAGES COMPLETED DATE/TIME: 08/23/2019 6:49 am REASON FOR STUDY: copd exacerbation COMPARISON: Previous day NUMBER OF VIEWS: One view. TECHNIQUE: Single frontal radiographic image of the chest acquired. LIMITATIONS: None. FINDINGS: LUNGS AND PLEURA: COPD. No infiltrate. No pneumothorax. MEDIASTINUM AND HEART: Stable heart size and mediastinal structures. SUPPORT DEVICES: Interval removal of endotracheal and nasogastric tubes. BONY STRUCTURES: No acute findings. HARDWARE: None. OTHER: No other significant finding. IMPRESSION: Stable chest status post extubation. Reading location - IP/workstation name: [email or web address]
[2019-08-23] MEDS: FAMOTIDINE INJ/PF 20 MG/2 ML SDV IV SCH ×2 (09:29→23:03)
[2019-08-23] MEDS ORDERED: FUROSEMIDE INJ/PF 40 MG/4 ML SDV IV ONE (09:30)
[2019-08-23] MEDS: CITALOPRAM HYDROBROMIDE 20 MG TABLET PO SCH (09:30)
[2019-08-23] MEDS: GABAPENTIN 300 MG CAPSULE PO SCH ×3 (09:30→17:24)
[2019-08-23] MEDS: ARIPIPRAZOLE 5 MG TABLET PO SCH (09:30)
[2019-08-23] MEDS: AMLODIPINE BESYLATE 5 MG TABLET PO SCH (09:30)
[2019-08-23] MEDS: ENOXAPARIN SODIUM INJ 40 MG/0.4 ML DISP.SYRIN SUBCUT SCH (09:31)
[2019-08-23] MEDS: SUBOXONE 8MG/2MG SL SCH (09:49)
[2019-08-23] MEDS ORDERED: VANCOMYCIN HCL 0 MG in DEXTROSE 5%-WATER 250 ML IV NR (10:00)
[2019-08-23] MEDS: VANCOMYCIN HCL 750 MG in DEXTROSE 5%-WATER 250 ML IV SCH (11:54)
[2019-08-23 12:17] LABS: ANION GAP 9 (5-19); BLOOD UREA NITROGEN 30 mg/dL (7-20); CALCIUM 8.7 mg/dL (8.4-10.2); CARBON DIOXIDE 34 mmol/L (22-30); CHLORIDE 90 mmol/L (98-107); GLUCOSE 168 mg/dL (75-110)
[2019-08-23] MEDS: NYSTATIN 500000 UNIT/5 ML UDCUP PO SCH ×2 (17:24→23:10)
--- NOTE | 2019-08-23 18:02 | PDOC CRITICAL CARE PROG REPORT ---
General ICU Day:: 4 Hospital Day:: 4 Resuscitation Status: Full Code Events in the past 12 to 24 Hours:: 08/19: This 64-year-old female smoker reportedly used nebulizers all day at home due to increased dyspnea for which she called EMS. EMS administered magnesium IV and a Duo-Neb without resolution of symptoms resulting in [id number] intubation prior to arrival. PAST MEDICAL HISTORY: bipolar with depression, chronic pain/fibromyalgia, type 2 diabetes, hypothyroidism, hypertension, [place], diastolic CHF, CAD s/p coronary stent x2, and chronic respiratory failure with multiple intubations due to COPD exacerbation, on 3 L home O2. 08/20: remains intubated. On PSV. Had over 2 L U/O after a single dose of Lasix yesterday. Vigorous cough and gag. On aerosols, SoluMedrol. 08/21: On pressure support 03/20. RASS 0. The patient is indicating that she wants the ET tube removed. Currently on Solu-Medrol 60 mg IV every 8 hours along with aerosols. 08/22: Successfully extubated yesterday. Anxious, irritable mood. On Solu-Medrol 60 mg IV every 6 hours. She reports that she frequently has these problems whenever she is on systemic steroid therapy. Review of systems relevant to events:: Respiratory: acute on chronic respiratory failure, dyspnea, cough, sputum production Cardiovascular: volume overload Reason for ICU Addmission:: acute on chronic respiratory failure due to hypercapnia - Medications: Medications reviewed and adjusted accordingly: Yes Physical Exam Vital Signs: Temp Pulse Resp BP Pulse Ox 96.8 F L 96 22 H 171/89 H 97 08/20/19 04:05 08/23/19 08:05 08/23/19 08:05 08/23/19 05:43 08/23/19 08:05 Intake & Output 08/22/19 08/23/19 08/24/19 06:59 06:59 06:59 Intake Total 1141 2580 Output Total 1630 8995 Balance -489 855 Weight 63.1 kg 63.3 kg Weight/Height Weight 63.3 kg Height 1.55 m General appearance: PRESENT: no acute distress, well-developed, well-nourished Head exam: PRESENT: atraumatic, normocephalic Eye exam: PRESENT: conjunctiva pink, EOMI, periorbital swelling, PERRLA. ABSENT: scleral icterus Neck exam: ABSENT: carotid bruit, JVD, lymphadenopathy, thyromegaly Respiratory exam: PRESENT: rhonchi, wheezes. ABSENT: rales Cardiovascular exam: PRESENT: RRR. ABSENT: diastolic murmur, rubs, systolic murmur Pulses: PRESENT: normal dorsalis pedis pul GI/Abdominal exam: PRESENT: normal bowel sounds, soft. ABSENT: distended, guarding, mass, organolmegaly, rebound, tenderness Extremities exam: PRESENT: full ROM, pedal edema. ABSENT: calf tenderness, clubbing Neurological exam: PRESENT: alert, awake, oriented to person, oriented to place, oriented to time, oriented to situation, CN II-XII grossly intact. ABSENT: motor sensory deficit Psychiatric exam: PRESENT: agitated, anxious Laboratory/Radiographs Laboratory Results: 08/23/19 04:57 08/23/19 04:57 08/22/19 08/22/19 08/22/19 11:51 12:32 17:41 WBC RBC Hgb Hct MCV MCH MCHC RDW Plt Count Seg Neutrophils % Sodium 132.5 L 130.4 L 131.5 L Potassium 4.4 4.5 4.4 Chloride 97 L 98 97 L Carbon Dioxide 28 28 26 Anion Gap 8 4 L 9 BUN 34 H 33 H 32 H Creatinine 0.74 0.68 0.67 Est GFR ( Amer) > 60 > 60 > 60 Glucose 153 H 105 89 Calcium 8.4 8.4 8.1 L Magnesium 08/23/19 08/23/19 04:57 04:57 WBC 15.1 H RBC 3.74 Hgb 10.9 L Hct 33.3 L MCV 89 MCH 29.2 MCHC 32.9 RDW 14.7 H Plt Count 235 Seg Neutrophils % Not Reportable Sodium 132.3 L Potassium 4.1 Chloride 98 Carbon Dioxide 28 Anion Gap 6 BUN 32 H Creatinine 0.72 Est GFR ( Amer) > 60 Glucose 140 H Calcium 8.5 Magnesium 2.1 08/20/19 00:25 Blood Blood Culture (PCR) - Final Staphylococcus Species 08/20/19 08/20/19 08/21/19 00:25 07:14 08:12 NT-Pro-B Natriuret Pep 818 H 478 H 411 H All labs, radiographs, diagnostic studies and EKGs were personally reviewed: Yes In addition, reports of radiographic and diagnostic studies were read: Yes Assessment and Plan - Diagnosis (1) Acute and chronic respiratory failure with hypercapnia Is this a current diagnosis for this admission?: Yes Plan: Excessively extubated on 08/22/2019. Titrate supplemental oxygen to maintain SpO2 89-93%. (2) COPD with acute exacerbation Is this a current diagnosis for this admission?: Yes Plan: Continue DuoNeb scheduled and albuterol as needed. Decrease Solu-Medrol to 40 mg IV q 12 hours. Continue Rocephin. Blood cultures (2 of 2) isolated Staphylococcus hominis, likely a contaminant. But, with 2 of 2 bottles, will repeat cultures and then start vancomycin. (3) Hyponatremia Is this a current diagnosis for this admission?: Yes Plan: Improving. BMP in a.m. (4) Elevated brain natriuretic peptide (BNP) level Is this a current diagnosis for this admission?: Yes Plan: Furosemide 40 mg IV today. Resume furosemide 40 mg p.o. daily in a.m. (5) Restless leg syndrome Is this a current diagnosis for this admission?: Yes Plan: Continue Requip. (6) Tobacco abuse disorder Is this a current diagnosis for this admission?: Yes (7) Normocytic anemia Is this a current diagnosis for this admission?: Yes (8) HTN (hypertension) Qualifiers: Hypertension type: essential hypertension Qualified Code(s): I10 - Essential (primary) hypertension Is this a current diagnosis for this admission?: Yes Plan: Restart amlodipine 5 mg p.o. daily. Furosemide 40 mg IV single dose today. Restart furosemide p.o. in a.m. Home antihypertensive medications: Amlodipine, furosemide and carvedilol (9) COVID-19 ruled out by laboratory testing Is this a current diagnosis for this admission?: Yes (10) Hypothyroidism Qualifiers: Hypothyroidism type: unspecified Qualified Code(s): E03.9 - Hypothyroidism, unspecified Is this a current diagnosis for this admission?: Yes Critical Time Critical Time (minutes): 45 Level of Care: ICU -: 1. The care of a critical patient is a dynamic process. This note is a kiosk sales representative synopsis but static in nature. The timeframe for treatments given in order is not necessarily the actual time these treatments may have been done. 2. This patient requires critical care secondary to ongoing requirements for therapy not offered or safe outside the critical care environment. Transfer to a lower level of care will result in altered life or limb morbidity and mortality. 3. Multidisciplinary rounds completed. 4. ABCDE bundle addressed.
[2019-08-23 18:12] LABS: ANION GAP 6 (5-19); BLOOD UREA NITROGEN 30 mg/dL (7-20); CALCIUM 8.5 mg/dL (8.4-10.2); CARBON DIOXIDE 38 mmol/L (22-30); CHLORIDE 87 mmol/L (98-107); GLUCOSE 163 mg/dL (75-110); POTASSIUM 3.8 mmol/L (3.6-5.0)
[2019-08-23] MEDS: DOXEPIN HCL 10 MG CAPSULE NG SCH (23:04)
[2019-08-23] MEDS: ROPINIROLE HCL 2 MG TABLET PO SCH (23:04)
[2019-08-24] MEDS: INSULIN REG, HUMAN 100 UNIT/ML 3 ML VIAL (PYX) SUBCUT SCH ×5 (00:12→21:25)
[2019-08-24] MEDS: VANCOMYCIN HCL 750 MG in DEXTROSE 5%-WATER 250 ML IV SCH ×3 (00:13→23:04)
[2019-08-24] MEDS: IPRATROPIUM/ALBUTEROL 0.5-2.5 MG/3 ML AMPUL NEB SCH ×4 (02:10→20:57)
[2019-08-24 05:11] LABS: HEMATOCRIT 36.3 % (36.0-47.0); HEMOGLOBIN 11.9 g/dL (12.0-15.5); MEAN CORPUSCULAR HEMOGLOBIN 28.6 pg (27.0-33.4); MEAN CORPUSCULAR HGB CONC 32.7 g/dL (32.0-36.0); MEAN CORPUSCULAR VOLUME 88 fl (80-97); PLATELET COUNT 223 10^3/uL (150-450); RED BLOOD COUNT 4.15 10^6/uL (3.72-5.28); RED CELL DISTRIBUTION WIDTH 14.4 % (11.5-14.0); WHITE BLOOD COUNT 18.6 10^3/uL (4.0-10.5)
[2019-08-24] MEDS: LEVOTHYROXINE SODIUM 0.05 MG TABLET NG SCH (05:16)
[2019-08-24] MEDS: METHYLPREDNISOLONE INJ 125 MG/2 ML SDV IV SCH ×3 (05:16→21:25)
[2019-08-24 05:26] LABS: ABSOLUTE LYMPHOCYTES# (MANUAL) 0.4 10^3/uL (0.5-4.7); ABSOLUTE MONOCYTES # (MANUAL) 0.7 10^3/uL (0.1-1.4); BASOPHILS % (MANUAL) 0 % (0-2); EOSINOPHILS % (MANUAL) 0 % (0-6); LYMPHOCYTES % (MANUAL) 2 % (13-45); MONOCYTES % (MANUAL) 4 % (3-13); SEGMENTED NEUTROPHILS % (MAN) 94 % (42-78); TOTAL CELLS COUNTED 100; TOXIC GRANULATION 1+; TOXIC VACUOLATION PRESENT
[2019-08-24 05:27] LABS: ANISOCYTOSIS SLIGHT; PLATELET COMMENT ADEQUATE; POIKILOCYTOSIS SLIGHT; TEAR DROP CELLS SLIGHT
[2019-08-24 05:30] LABS: ANION GAP 5 (5-19); BLOOD UREA NITROGEN 30 mg/dL (7-20); CALCIUM 8.2 mg/dL (8.4-10.2); CARBON DIOXIDE 39 mmol/L (22-30); CHLORIDE 88 mmol/L (98-107); GLUCOSE 176 mg/dL (75-110); POTASSIUM 4.1 mmol/L (3.6-5.0)
[2019-08-24] MEDS: CEFTRIAXONE 1 GM/D5W RTU 1 GM/50 ML RTUPB IV SCH (08:42)
[2019-08-24] MEDS: FUROSEMIDE 40 MG TABLET PO SCH (10:02)
[2019-08-24] MEDS: NYSTATIN 500000 UNIT/5 ML UDCUP PO SCH ×4 (10:03→21:25)
[2019-08-24] MEDS: CITALOPRAM HYDROBROMIDE 20 MG TABLET PO SCH (10:03)
[2019-08-24] MEDS: ARIPIPRAZOLE 5 MG TABLET PO SCH (10:03)
[2019-08-24] MEDS: GABAPENTIN 300 MG CAPSULE PO SCH ×3 (10:03→17:16)
[2019-08-24] MEDS: AMLODIPINE BESYLATE 5 MG TABLET PO SCH (10:03)
[2019-08-24] MEDS: FAMOTIDINE INJ/PF 20 MG/2 ML SDV IV SCH ×2 (10:04→21:25)
[2019-08-24] MEDS: ENOXAPARIN SODIUM INJ 40 MG/0.4 ML DISP.SYRIN SUBCUT SCH (10:04)
[2019-08-24] MEDS: SUBOXONE 8MG/2MG SL SCH (10:13)
--- NOTE | 2019-08-24 13:24 | PDOC CRITICAL CARE PROG REPORT ---
General Date:: 08/24/19 ICU Day:: 5 Hospital Day:: 5 Resuscitation Status: Full Code Events in the past 12 to 24 Hours:: 08/19: This 64-year-old female smoker reportedly used nebulizers all day at home due to increased dyspnea for which she called EMS. EMS administered magnesium IV and a Duo-Neb without resolution of symptoms resulting in [id number] intubation prior to arrival. PAST MEDICAL HISTORY: bipolar with depression, chronic pain/fibromyalgia, type 2 diabetes, hypothyroidism, hypertension, [place], diastolic CHF, CAD s/p coronary stent x2, and chronic respiratory failure with multiple intubations due to COPD exacerbation, on 3 L home O2. 08/20: remains intubated. On PSV. Had over 2 L U/O after a single dose of Lasix yesterday. Vigorous cough and gag. On aerosols, SoluMedrol. 08/21: On pressure support 03/20. RASS 0. The patient is indicating that she wants the ET tube removed. Currently on Solu-Medrol 60 mg IV every 8 hours thad ng with aerosols. 08/22: Successfully extubated yesterday. Anxious, irritable mood. On Solu-Medrol 60 mg IV every 6 hours. She reports that she frequently has these problems whenever she is on systemic steroid therapy. 08/23: Remains extubated. Looks much better today. No longer audibly wheezing. Better mood after decrease in SoluMedrol dosing frequency. Review of systems relevant to events:: Respiratory: acute on chronic respiratory failure, dyspnea, cough, sputum production Cardiovascular: volume overload Reason for ICU Addmission:: acute on chronic respiratory failure due to hypercapnia - Medications: Medications reviewed and adjusted accordingly: Yes Physical Exam Vital Signs: Temp Pulse Resp BP Pulse Ox 96.8 F L 84 16 146/76 H 92 08/20/19 04:05 08/24/19 08:15 08/24/19 08:15 08/24/19 05:44 08/24/19 08:15 Intake & Output 08/23/19 08/24/19 08/25/19 06:59 06:59 06:59 Intake Total 2580 550 Output Total 1726 5550 125 Balance 855 -4370 -125 Weight 63.3 kg 61.6 kg Weight/Height Weight 61.6 kg Height 1.55 m General appearance: PRESENT: no acute distress, well-developed, well-nourished, other - Cushingoid Head exam: PRESENT: atraumatic, normocephalic Eye exam: PRESENT: conjunctiva pink, EOMI, PERRLA. ABSENT: scleral icterus Neck exam: ABSENT: carotid bruit, JVD, lymphadenopathy, thyromegaly Respiratory exam: PRESENT: decreased breath sounds, wheezes. ABSENT: prolonged expiratory phas, rales, rhonchi Cardiovascular exam: PRESENT: RRR. ABSENT: diastolic murmur, rubs, systolic murmur Pulses: PRESENT: normal dorsalis pedis pul GI/Abdominal exam: PRESENT: normal bowel sounds, soft. ABSENT: distended, guarding, mass, organolmegaly, rebound, tenderness Extremities exam: PRESENT: full ROM. ABSENT: calf tenderness, clubbing, pedal e kevin Neurological exam: PRESENT: alert, awake, oriented to person, oriented to place, oriented to time, oriented to situation, CN II-XII grossly intact. ABSENT: motor sensory deficit Skin exam: PRESENT: dry, intact, warm. ABSENT: cyanosis, rash Laboratory/Radiographs Laboratory Results: 08/24/19 04:57 08/24/19 04:57 08/23/19 08/23/19 08/24/19 11:54 17:40 04:57 WBC 18.6 H RBC 4.15 Hgb 11.9 L Hct 36.3 MCV 88 MCH 28.6 MCHC 32.7 RDW 14.4 H Plt Count 223 Seg Neutrophils % Not Reportable Sodium 132.7 L 131.1 L Potassium 4.0 3.8 Chloride 90 L 87 L Carbon Dioxide 34 H 38 H Anion Gap 9 6 BUN 30 H 30 H Creatinine 0.75 0.78 Est GFR ( Amer) > 60 > 60 Glucose 168 H 163 H Calcium 8.7 8.5 Magnesium 08/24/19 04:57 WBC RBC Hgb Hct MCV MCH MCHC RDW Plt Count Seg Neutrophils % Sodium 131.6 L Potassium 4.1 Chloride 88 L Carbon Dioxide 39 H Anion Gap 5 BUN 30 H Creatinine 0.68 Est GFR ( Amer) > 60 Glucose 176 H Calcium 8.2 L Magnesium 2.0 08/20/19 00:25 Blood Blood Culture (PCR) - Final Staphylococcus Species 08/20/19 00:25 Blood Blood Culture - Final Staphylococcus Hominis 08/20/19 08/20/19 08/21/19 00:25 07:14 08:12 NT-Pro-B Natriuret Pep 818 H 478 H 411 H Impressions: Chest X-Ray 08/23/19 06:00 IMPRESSION: Stable chest status post extubation. All labs, radiographs, diagnostic studies and EKGs were personally reviewed: Yes In addition, reports of radiographic and diagnostic studies were read: Yes Assessment and Plan - Diagnosis (1) Acute and chronic respiratory failure with hypercapnia Is this a current diagnosis for this admission?: Yes Plan: Successfully extubated on 08/22/2019. Titrate supplemental oxygen to maintain SpO2 89-93%. (2) COPD with acute exacerbation Is this a current diagnosis for this admission?: Yes Plan: Continue DuoNeb scheduled and albuterol as needed. Add Pulmicort. Continue Solu-Medrol to 40 mg IV q 12 hours. Slow taper. Continue Rocephin. Blood cultures (2 of 2) isolated Staphylococcus hominis, likely a contaminant. But, with 2 of 2 bottles, will repeat cultures and then s tart vancomycin. (3) Hyponatremia Is this a current diagnosis for this admission?: Yes Plan: Improving. BMP in a.m. (4) Elevated brain natriuretic peptide (BNP) level Is this a current diagnosis for this admission?: Yes Plan: Resume furosemide 40 mg p.o. daily. (5) Restless leg syndrome Is this a current diagnosis for this admission?: Yes Plan: Continue Requip. (6) Tobacco abuse disorder Is this a current diagnosis for this admission?: Yes (7) Normocytic anemia Is this a current diagnosis for this admission?: Yes (8) HTN (hypertension) Qualifiers: Hypertension type: essential hypertension Qualified Code(s): I10 - Essential (primary) hypertension Is this a current diagnosis for this admission?: Yes (9) COVID-19 ruled out by laboratory testing Is this a current diagnosis for this admission?: Yes (10) Hypothyroidism Qualifiers: Hypothyroidism type: unspecified Qualified Code(s): E03.9 - Hypothyroidism, unspecified Is this a current diagnosis for this admission?: Yes Plan Summary: OK to transfer to [facility] from pulmonary standpoint. Critical Time Critical Time (minutes): 45 Level of Care: ICU -: 1. The care of a critical patient is a dynamic process. This note is a employer relations representative synopsis but static in nature. The timeframe for treatments given in order is not necessarily the actual time these treatments may have been done. 2. This patient requires critical care secondary to ongoing requirements for therapy not offered or safe outside the critical care environment. Transfer to a lower level of care will result in altered life or limb morbidity and mortality. 3. Multidisciplinary rounds completed. 4. ABCDE bundle addressed.
[2019-08-24] MEDS: BUDESONIDE NEB 0.25 MG/2 ML AMPUL NEB SCH (20:57)
[2019-08-24] MEDS: ROPINIROLE HCL 2 MG TABLET PO SCH (21:25)
[2019-08-24] MEDS: DOXEPIN HCL 10 MG CAPSULE NG SCH (21:25)
[2019-08-25] MEDS: IPRATROPIUM/ALBUTEROL 0.5-2.5 MG/3 ML AMPUL NEB SCH ×4 (02:44→20:08)
[2019-08-25] MEDS: METHYLPREDNISOLONE INJ 125 MG/2 ML SDV IV SCH ×2 (05:09→22:09)
[2019-08-25] MEDS: LEVOTHYROXINE SODIUM 0.05 MG TABLET NG SCH (05:10)
[2019-08-25 06:25] LABS: HEMATOCRIT 37.2 % (36.0-47.0); HEMOGLOBIN 12.2 g/dL (12.0-15.5); MEAN CORPUSCULAR HGB CONC 32.7 g/dL (32.0-36.0); MEAN CORPUSCULAR VOLUME 89 fl (80-97); PLATELET COUNT 217 10^3/uL (150-450); RED BLOOD COUNT 4.19 10^6/uL (3.72-5.28); RED CELL DISTRIBUTION WIDTH 14.7 % (11.5-14.0); WHITE BLOOD COUNT 16.1 10^3/uL (4.0-10.5)
[2019-08-25 06:39] LABS: APPEARANCE,URINE CLEAR; BILIRUBIN,URINE NEGATIVE (NEGATIVE); COLOR,URINE STRAW; GLUCOSE, URINE NEGATIVE (NEGATIVE); KETONES,URINE NEGATIVE (NEGATIVE); LEUKOCYTE ESTERASE,URINE NEGATIVE (NEGATIVE); NITRITE,URINE NEGATIVE (NEGATIVE); PROTEIN,URINE NEGATIVE (NEGATIVE); URINE SPECIFIC GRAVITY 1.006; UROBILINOGEN,URINE NEGATIVE mg/dL (<2.0)
[2019-08-25 06:43] LABS: BLOOD UREA NITROGEN 28 mg/dL (7-20); CALCIUM 8.1 mg/dL (8.4-10.2); CHLORIDE 83 mmol/L (98-107); GLUCOSE 169 mg/dL (75-110); POTASSIUM 3.5 mmol/L (3.6-5.0)
[2019-08-25 06:50] LABS: ANION GAP 9 (5-19); CARBON DIOXIDE 39 mmol/L (22-30)
[2019-08-25 07:01] LABS: ABSOLUTE LYMPHOCYTES# (MANUAL) 0.8 10^3/uL (0.5-4.7); ABSOLUTE MONOCYTES # (MANUAL) 0.8 10^3/uL (0.1-1.4); BAND NEUTROPHILS % (MANUAL) 1 % (3-5); BASOPHILS % (MANUAL) 0 % (0-2); EOSINOPHILS % (MANUAL) 2 % (0-6); LYMPHOCYTES % (MANUAL) 5 % (13-45); MONOCYTES % (MANUAL) 5 % (3-13); SEGMENTED NEUTROPHILS % (MAN) 87 % (42-78); TOTAL CELLS COUNTED 100
[2019-08-25 07:03] LABS: ANISOCYTOSIS SLIGHT; PLATELET COMMENT ADEQUATE; TOXIC GRANULATION SLIGHT; TOXIC VACUOLATION PRESENT
[2019-08-25] MEDS: BUDESONIDE NEB 0.25 MG/2 ML AMPUL NEB SCH (08:45)
[2019-08-25] MEDS: CEFTRIAXONE 1 GM/D5W RTU 1 GM/50 ML RTUPB IV SCH (09:10)
[2019-08-25] MEDS: INSULIN REG, HUMAN 100 UNIT/ML 3 ML VIAL (PYX) SUBCUT SCH ×4 (09:10→22:07)
[2019-08-25] MEDS: FAMOTIDINE INJ/PF 20 MG/2 ML SDV IV SCH ×2 (09:11→22:09)
[2019-08-25] MEDS: ENOXAPARIN SODIUM INJ 40 MG/0.4 ML DISP.SYRIN SUBCUT SCH (09:11)
[2019-08-25] MEDS: NYSTATIN 500000 UNIT/5 ML UDCUP PO SCH ×4 (09:11→22:09)
[2019-08-25] MEDS: NICOTINE 21 MG/24 HR PATCH.TD24 TD SCH (09:12)
[2019-08-25] MEDS: SUBOXONE 8MG/2MG SL SCH (09:12)
[2019-08-25] MEDS: GABAPENTIN 300 MG CAPSULE PO SCH ×3 (09:12→18:19)
[2019-08-25] MEDS: CITALOPRAM HYDROBROMIDE 20 MG TABLET PO SCH (09:12)
[2019-08-25] MEDS: AMLODIPINE BESYLATE 5 MG TABLET PO SCH (09:12)
[2019-08-25] MEDS: FUROSEMIDE 40 MG TABLET PO SCH (09:12)
[2019-08-25] MEDS: ARIPIPRAZOLE 5 MG TABLET PO SCH (09:12)
[2019-08-25 13:30] LABS: VANCOMYCIN,TROUGH 13.2 ug/mL (5.0-20.0)
--- NOTE | 2019-08-25 15:14 | PDOC PROGRESS REPORT ---
Subjective Progress Note for:: 08/25/19 Subjective:: No adverse events overnight. No new complaints. She is on 3 to 4 L of oxygen per nasal cannula, which is what she is on at home. Nursing reports that she has been able to ambulate independently to and from the bathroom without any trouble. She wants to go home but she has been on large doses of steroids and I told her I would like to de-escalate her over a day or 2, and she was okay with that. Reason For Visit: ACUTE RESPIRATORY FAILURE DUE TO HYPERCAPNIA Physical Exam Vital Signs: Temp Pulse Resp BP Pulse Ox 97.8 F 71 16 142/70 H 96 08/25/19 07:26 08/25/19 14:07 08/25/19 14:07 08/25/19 07:26 08/25/19 14:07 Intake & Output 08/24/19 08/25/19 08/26/19 06:59 06:59 06:59 Intake Total 550 1330 50 Output Total 4920 3000 Balance -4370 -1670 50 Weight 61.6 kg 61.1 kg General appearance: PRESENT: no acute distress, cooperative, disheveled Teeth exam: PRESENT: poor dentation Respiratory exam: PRESENT: prolonged expiratory phas, rhonchi, symmetrical, unlabored, wheezes - I suspect she chronically wheezes, they are audible without use of a stethoscope, but she looks comfortable. ABSENT: accessory muscle use, chest wall tenderness, crackles, retraction, tachypnea Cardiovascular exam: PRESENT: RRR, +S1, +S2 Pulses: PRESENT: normal carotid pulses Vascular exam: PRESENT: normal capillary refill GI/Abdominal exam: PRESENT: normal bowel sounds, soft. ABSENT: distended, guarding, rebound, tenderness Extremities exam: ABSENT: clubbing, pedal edema Musculoskeletal exam: PRESENT: normal inspection. ABSENT: deformity Neurological exam: PRESENT: alert, awake, oriented to person, oriented to place, oriented to situation Psychiatric exam: PRESENT: appropriate affect, normal mood Skin exam: PRESENT: dry, warm, other - Generally dusky Results Laboratory Results: 08/25/19 05:49 08/25/19 05:49 08/25/19 08/25/19 08/25/19 05:15 05:49 05:49 WBC 16.1 H RBC 4.19 Hgb 12.2 Hct 37.2 MCV 89 MCH 29.0 MCHC 32.7 RDW 14.7 H Plt Count 217 Seg Neutrophils % Not Reportable Sodium 130.8 L Potassium 3.5 L Chloride 83 L Carbon Dioxide 39 H Anion Gap 9 BUN 28 H Creatinine 0.71 Est GFR ( Amer) > 60 Glucose 169 H Calcium 8.1 L Urine Color STRAW Urine Appearance CLEAR Urine pH 7.0 Ur Specific [place] 1.006 Urine Protein NEGATIVE Urine Glucose (UA) NEGATIVE Urine Ketones NEGATIVE Urine Blood MODERATE H Urine Nitrite NEGATIVE Ur Leukocyte Esterase NEGATIVE Urine WBC (Auto) 2 Urine RBC (Auto) 4 08/20/19 07:14 Blood Blood Culture - Final NO GROWTH IN 5 DAYS 08/20/19 08/20/19 08/21/19 00:25 07:14 08:12 NT-Pro-B Natriuret Pep 818 H 478 H 411 H Impressions: Chest X-Ray 08/23/19 06:00 IMPRESSION: Stable chest status post extubation. Assessment and Plan - Diagnosis (1) Acute on chronic respiratory failure with hypoxia and hypercapnia Is this a current diagnosis for this admission?: Yes Plan: Resolved (2) Bipolar disorder with depression Is this a current diagnosis for this admission?: Yes Plan: Continue Abilify and Celexa (3) COPD with acute exacerbation Is this a current diagnosis for this admission?: Yes Plan: She had been on Rocephin and vancomycin. I have discontinued these. She had a blood culture that returned positive it was 1 culture and it was a contaminated coagulase-negative Staphylococcus. I have put her on Levaquin. She was on fairly high dose of Solu-Medrol, so I am going to taper that down over the next couple of days so that we can switch her over to a reasonable dose of prednisone. The dehydrator tender recommended a longer taper when she is discharged. (4) COVID-19 ruled out by laboratory testing Is this a current diagnosis for this admission?: Yes (5) Chronic pain Qualifiers: Chronic pain type: chronic pain syndrome Qualified Code(s): G89.4 - Chronic pain syndrome Is this a current diagnosis for this admission?: Yes Plan: Continuing Subutex - Time Time Spent with patient: 15-24 minutes
[2019-08-25] MEDS: DOXEPIN HCL 10 MG CAPSULE NG SCH (22:09)
[2019-08-25] MEDS: ROPINIROLE HCL 2 MG TABLET PO SCH (22:09)
[2019-08-26] MEDS: IPRATROPIUM/ALBUTEROL 0.5-2.5 MG/3 ML AMPUL NEB SCH ×2 (02:52→08:01)
[2019-08-26] MEDS: LEVOTHYROXINE SODIUM 0.05 MG TABLET NG SCH (06:12)
[2019-08-26] MEDS: INSULIN REG, HUMAN 100 UNIT/ML 3 ML VIAL (PYX) SUBCUT SCH ×2 (08:52→11:36)
[2019-08-26] MEDS: GABAPENTIN 300 MG CAPSULE PO SCH ×2 (09:07→13:10)
[2019-08-26] MEDS: SUBOXONE 8MG/2MG SL SCH (09:07)
[2019-08-26] MEDS: CITALOPRAM HYDROBROMIDE 20 MG TABLET PO SCH (09:07)
[2019-08-26] MEDS: METHYLPREDNISOLONE INJ 125 MG/2 ML SDV IV SCH (09:08)
[2019-08-26] MEDS: AMLODIPINE BESYLATE 5 MG TABLET PO SCH (09:08)
[2019-08-26] MEDS: ARIPIPRAZOLE 5 MG TABLET PO SCH (09:08)
[2019-08-26] MEDS: NYSTATIN 500000 UNIT/5 ML UDCUP PO SCH ×2 (09:09→13:10)
[2019-08-26] MEDS: FAMOTIDINE INJ/PF 20 MG/2 ML SDV IV SCH (09:09)
[2019-08-26] MEDS: FUROSEMIDE 40 MG TABLET PO SCH (09:09)
[2019-08-26] MEDS: ENOXAPARIN SODIUM INJ 40 MG/0.4 ML DISP.SYRIN SUBCUT SCH (09:09)
[2019-08-26] MEDS: NICOTINE 21 MG/24 HR PATCH.TD24 TD SCH (09:09)
[2019-08-26] MEDS ORDERED: LEVOFLOXACIN 500 MG TABLET PO SCH (10:00)
[2019-08-26 11:41] VITALS: BP 146/70
--- NOTE | 2019-08-26 11:54 | PDOC DISCHARGE SUMMARY ---
Impression - Admit/DC Date/PCP Admission Date/Primary Care Provider: 08/20/19 02:00 OCTAVIO MOLINA Discharge Date: 08/26/19 - Discharge Diagnosis (1) Acute on chronic respiratory failure with hypoxia and hypercapnia Is this a current diagnosis for this admission?: Yes (2) Bipolar disorder with depression Is this a current diagnosis for this admission?: Yes (3) COPD with acute exacerbation Is this a current diagnosis for this admission?: Yes (4) COVID-19 ruled out by laboratory testing Is this a current diagnosis for this admission?: Yes (5) Chronic pain Is this a current diagnosis for this admission?: Yes - Additional Information Resuscitation Status: Full Code Referrals: QAIN MCGEE FNP-C [Primary Care Provider] - Follow up as needed Prescriptions: Prednisone [Deltasone 20 mg Tablet] 40 mg PO DAILY #10 tablet Home Medications: Baclofen [Baclofen 10 mg Tablet] 5 mg PO Q12 01/20/18 Buprenorphine HCl/Naloxone HCl [Suboxone 8 mg-2 mg Sl Film] 2.5 film SL DAILY MDD 3 FILMS 01/20/18 Ipratropium/Albuterol Sulfate [Combivent Respimat 4 gm Mdi] 1 puff IH Q6HP PRN MDD 6 PUFFS 05/03/18 Levothyroxine Sodium [Synthroid 0.05 mg Tablet] 50 mcg PO Q6AM 05/03/18 Ropinirole HCl [Requip 2 mg Tablet] 2 mg PO DAILY 05/03/18 Albuterol Sulfate [Ventolin Hfa 8 gm Mdi] 2 puff IH Q4HP PRN 08/20/19 Amlodipine Besylate [Norvasc 5 mg Tablet] 5 mg PO DAILY 08/20/19 Atorvastatin Calcium [Lipitor 40 mg Tablet] 40 mg PO QHS 08/20/19 Carvedilol [Coreg 3.125 mg Tablet] 3.125 mg PO Q12 08/20/19 Citalopram Hydrobromide [Celexa 20 mg Tablet] 20 mg PO DAILY 08/20/19 Doxepin HCl [Sinequan 10 mg Capsule] 20 mg PO QHS 08/20/19 Fluticasone Propionate [Flonase Nasal Oxford 50 Mcg/[place] 16 gm] 1 spray NASL DAILY 08/20/19 Furosemide [Lasix 40 mg Tablet] 40 mg PO QAM 08/20/19 Gabapentin [Neurontin 300 mg Capsule] 600 mg PO Q8 08/20/19 Hydroxyzine HCl [Atarax 10 mg Tablet] 10 mg PO BID 08/20/19 Levofloxacin [Levaquin 500 mg Tablet] 500 mg PO DAILY 08/20/19 Nicotine [Nicoderm 21 mg/24 Hr Transderm Patch] 1 each TD DAILY patch.td24 08/26/19 Prednisone [Deltasone 20 mg Tablet] 40 mg PO DAILY #10 tablet 08/26/19 History of Present Illiness History of Present Illness: Rhianna Leahy is a 64-year-old female with a past medical history significant for bipolar with depression, chronic pain/fibromyalgia, type 2 diabetes, hypothyroidism, hypertension, RI, diastolic CHF, CAD s/p coronary stent x2, and chronic respiratory failure due to COPD on 3 L home O2 who reportedly used nebulizers all day at home due to increased dyspnea for which she called EMS. EMS administered magnesium IV and a Duo-Neb without resolution of symptoms resulting in a field intubation prior to arrival. Current smoking tobacco abuse. To note, Mrs. Leahy has been intubated many times in the past. Unable to obtain review of systems at this time due to intubation and sedation. ICU team was consulted for acute on chronic respiratory failure with management of the mechanical ventilator for which she will be admitted to ICU. Hospital Course Hospital Course: Patient was admitted to the ICU and intubated. Patient did well on the ventilator and was extubated 08/22/2019. She continues to do well on nasal cannula oxygen which she uses at home. She received IV steroids Solu-Medrol. She also received IV Rocephin. Blood cultures isolated staph hominis which deemed contaminant. She is currently very close if not at her baseline and she is requesting to go home. Will discharge on oral prednisone short course. Physical Exam Vital Signs: Temp Pulse Resp BP Pulse Ox 98.6 F 94 18 146/70 H 92 08/26/19 11:35 08/26/19 11:35 08/26/19 11:35 08/26/19 11:35 08/26/19 11:35 Intake & Output 08/25/19 08/26/19 08/27/19 06:59 06:59 06:59 Intake Total 1330 1985 Output Total 3000 2530 Balance -1670 -545 Weight 134 lb 11.239 oz 134 lb 11.239 oz General appearance: PRESENT: no acute distress, cooperative Head exam: PRESENT: atraumatic, normocephalic Eye exam: PRESENT: EOMI, PERRLA Mouth exam: PRESENT: neck supple, tongue midline Neck exam: ABSENT: meningismus, tenderness, tracheostomy Respiratory exam: PRESENT: wheezes. ABSENT: accessory muscle use GI/Abdominal exam: PRESENT: normal bowel sounds Neurological exam: PRESENT: alert, awake, oriented to person, oriented to place, oriented to time, oriented to situation Results Laboratory Results: WBC 16.1 10^3/uL (4.0-10.5) H 08/25/19 05:49 RBC 4.19 10^6/uL (3.72-5.28) 08/25/19 05:49 Hgb 12.2 g/dL (12.0-15.5) 08/25/19 05:49 Hct 37.2 % (36.0-47.0) 08/25/19 05:49 MCV 89 fl (80-97) 08/25/19 05:49 MCH 29.0 pg (27.0-33.4) 08/25/19 05:49 MCHC 32.7 g/dL (32.0-36.0) 08/25/19 05:49 RDW 14.7 % (11.5-14.0) H 08/25/19 05:49 Plt Count 217 10^3/uL (150-450) 08/25/19 05:49 Lymph % (Auto) Not Reportable 08/25/19 05:49 Lee % (Auto) Not Reportable 08/25/19 05:49 Eos % (Auto) Not Reportable 08/25/19 05:49 Baso % (Auto) Not Reportable 08/25/19 05:49 Absolute Neuts (auto) Not Reportable 08/25/19 05:49 Absolute Lymphs (auto) Not Reportable 08/25/19 05:49 Absolute Monos (auto) Not Reportable 08/25/19 05:49 Absolute Eos (auto) Not Reportable 08/25/19 05:49 Absolute Basos (auto) Not Reportable 08/25/19 05:49 Total Counted 100 08/25/19 05:49 Seg Neutrophils % Not Reportable 08/25/19 05:49 Seg Neuts % (Manual) 87 % (42-78) H 08/25/19 05:49 Band Neutrophils % 1 % (3-5) L 08/25/19 05:49 Lymphocytes % (Manual) 5 % (13-45) L 08/25/19 05:49 Monocytes % (Manual) 5 % (3-13) 08/25/19 05:49 Eosinophils % (Manual) 2 % (0-6) 08/25/19 05:49 Basophils % (Manual) 0 % (0-2) 08/25/19 05:49 Abs Neuts (Manual) 14.2 10^3/uL (1.7-8.2) H 08/25/19 05:49 Abs Lymphs (Manual) 0.8 10^3/uL (0.5-4.7) 08/25/19 05:49 Abs Monocytes (Manual) 0.8 10^3/uL (0.1-1.4) 08/25/19 05:49 Absolute Eos (Manual) 0.3 10^3/uL (0.0-0.6) 08/25/19 05:49 Abs Basophils (Manual) 0.0 10^3/uL (0.0-0.2) 08/25/19 05:49 Toxic Granulation SLIGHT 08/25/19 05:49 Toxic Vacuolation PRESENT 08/25/19 05:49 Platelet Comment ADEQUATE 08/25/19 05:49 Polychromasia 1+ 08/23/19 04:57 Poikilocytosis SLIGHT 08/24/19 04:57 Anisocytosis SLIGHT 08/25/19 05:49 Tear Drop Cells SLIGHT 08/24/19 04:57 Carbonic Acid 1.59 mmol/L (1.05-1.35) H 08/22/19 05:30 HCO3/H2CO3 Ratio 18:1 08/22/19 05:30 ABG pH 7.36 (7.35-7.45) 08/22/19 05:30 ABG pCO2 52.8 mmHg (35-45) H 08/22/19 05:30 ABG pO2 56.6 mmHg (80-100) L 08/22/19 05:30 ABG HCO3 29.4 mmol/L (20-24) H 08/22/19 05:30 ABG Total CO2 31.0 mmol/L (21-25) H 08/22/19 05:30 ABG O2 Saturation 88.0 % (94-98) L 08/22/19 05:30 ABG Base Excess 3.2 mmol/L 08/22/19 05:30 FiO2 35% 08/22/19 05:30 Sodium 130.8 mmol/L (137-145) L 08/25/19 05:49 Potassium 3.5 mmol/L (3.6-5.0) L 08/25/19 05:49 Chloride 83 mmol/L (98-107) L 08/25/19 05:49 Carbon Dioxide 39 mmol/L (22-30) H 08/25/19 05:49 Anion Gap 9 (5-19) 08/25/19 05:49 BUN 28 mg/dL (7-20) H 08/25/19 05:49 Creatinine 0.71 mg/dL (0.52-1.25) 08/25/19 05:49 Est GFR ( Amer) > 60 (>60) 08/25/19 05:49 Est GFR (MDRD) Non-Af > 60 (>60) 08/25/19 05:49 Glucose 169 mg/dL (75-110) H 08/25/19 05:49 POC Glucose 67 mg/dL (70-110) L 08/26/19 11:34 Calcium 8.1 mg/dL (8.4-10.2) L 08/25/19 05:49 Magnesium 2.0 mg/dL (1.6-2.3) 08/24/19 04:57 Total Bilirubin 0.4 mg/dL (0.2-1.3) 08/21/19 08:12 Direct Bilirubin 0.0 mg/dL (0.0-0.4) 08/21/19 08:12 Neonat Total Bilirubin Not Reportable 08/21/19 08:12 Neonat Direct Bilirubin Not Reportable 08/21/19 08:12 Neonat Indirect Bili Not Reportable 08/21/19 08:12 AST 23 U/L (14-36) 08/21/19 08:12 ALT 18 U/L (<35) 08/21/19 08:12 Alkaline Phosphatase 52 U/L (38-126) 08/21/19 08:12 NT-Pro-B Natriuret Pep 411 pg/mL (<125) H 08/21/19 08:12 Total Protein 5.9 g/dL (6.3-8.2) L 08/21/19 08:12 Albumin 3.3 g/dL (3.5-5.0) L 08/21/19 08:12 TSH 0.77 uIU/mL (0.47-4.68) 08/21/19 08:12 Urine Color STRAW 08/25/19 05:15 Urine Appearance CLEAR 08/25/19 05:15 Urine pH 7.0 (5.0-9.0) 08/25/19 05:15 Ur Specific [place] 1.006 08/25/19 05:15 Urine Protein NEGATIVE mg/dL (NEGATIVE) 08/25/19 05:15 Urine Glucose (UA) NEGATIVE mg/dL (NEGATIVE) 08/25/19 05:15 Urine Ketones NEGATIVE mg/dL (NEGATIVE) 08/25/19 05:15 Urine Blood MODERATE (NEGATIVE) H 08/25/19 05:15 Urine Nitrite NEGATIVE (NEGATIVE) 08/25/19 05:15 Urine Bilirubin NEGATIVE (NEGATIVE) 08/25/19 05:15 Urine Urobilinogen NEGATIVE mg/dL (<2.0) 08/25/19 05:15 Ur Leukocyte Esterase NEGATIVE (NEGATIVE) 08/25/19 05:15 Urine WBC (Auto) 2 /HPF 08/25/19 05:15 Urine RBC (Auto) 4 /HPF 08/25/19 05:15 U Hyaline Cast (Auto) 8 /LPF 08/20/19 00:25 Urine Bacteria (Auto) TRACE /HPF 08/25/19 05:15 Squamous Epi Cells Auto 1 /HPF 08/25/19 05:15 Urine Mucus (Auto) OCC /LPF 08/25/19 05:15 Urine Ascorbic Acid NEGATIVE (NEGATIVE) 08/25/19 05:15 Time Trough Drawn 1155 08/25/19 11:55 Vancomycin Trough 13.2 ug/mL (5.0-20.0) 08/25/19 11:55 Urine Opiates Screen UNCONFIRMED POSITIVE 08/20/19 00:25 Urine Methadone Screen NEGATIVE 08/20/19 00:25 Ur Barbiturates Screen NEGATIVE 08/20/19 00:25 Ur Phencyclidine Scrn NEGATIVE 08/20/19 00:25 Ur Amphetamines Screen NEGATIVE 08/20/19 00:25 U Benzodiazepines Scrn UNCONFIRMED POSITIVE 08/20/19 00:25 Urine Cocaine Screen NEGATIVE 08/20/19 00:25 U Marijuana (THC) Screen NEGATIVE 08/20/19 00:25 COVID-19 Source Cancelled 08/20/19 01:20 COVID-19 (LINDA) Cancelled 08/20/19 01:20 SARS-CoV-2 (PCR) NEGATIVE (NEGATIVE) 08/20/19 01:20 08/20/19 08/20/19 08/21/19 00:25 07:14 08:12 NT-Pro-B Natriuret Pep 818 H 478 H 411 H Impressions: Chest X-Ray 08/20/19 00:25 IMPRESSION: Satisfactory placement of endotracheal tube. Nasogastric tube tip projects over the stomach, sidehole projects of the esophagus. This is satisfactory for aspiration only. Would need to be advanced approximately 8 cm for the side hole to be within the stomach. Chest X-Ray 08/20/19 08:00 IMPRESSION: Stable enlarged cardiac silhouette and trace bilateral effusions versus pleural thickening. No new airspace disease. Chest X-Ray 08/22/19 07:30 IMPRESSION: STABLE APPEARANCE OF THE CHEST. SUPPORT DEVICES UNCHANGED. Chest X-Ray 08/23/19 06:00 IMPRESSION: Stable chest status post extubation. Plan Time Spent: Less than 30 Minutes - 25 min Stroke Is this a Stroke Patient?: No Acute Heart Failure - Is this a Heart Failure Patient?: No
[2019-08-26] MEDS: ALBUTEROL SULFATE 0.083% NEB 2.5 MG/3 ML AMPUL NEB PRN (12:08)
== END 2019-08-26 13:45 | disposition home or self-care (01) | DRG 208 ==
LOC: ER 00:04 → EH 02:00 → ICU 04:01 → 3S 08-24 15:40
PROVIDERS: ADMIT Family Medicine; ATTEND Family Medicine
PROC: 5A1945Z Respiratory Ventilation, 24-96 Consecutive Hours (ICD-10-PCS; principal; 2019-08-20)
DX: J96.21 Acute and chronic respiratory failure with hypoxia (principal); J44.1 Chronic obstructive pulmonary disease with (acute) exacerbation; E87.1 Hypo-osmolality and hyponatremia; I50.32 Chronic diastolic (congestive) heart failure; J96.22 Acute and chronic respiratory failure with hypercapnia; F17.210 Nicotine dependence, cigarettes, uncomplicated; F31.9 Bipolar disorder, unspecified; I25.10 Atherosclerotic heart disease of native coronary artery without angina pectoris; M79.7 Fibromyalgia; E11.9 Type 2 diabetes mellitus without complications; E03.9 Hypothyroidism, unspecified; E78.5 Hyperlipidemia, unspecified; D72.829 Elevated white blood cell count, unspecified; G89.4 Chronic pain syndrome; G25.81 Restless legs syndrome; E83.41 Hypermagnesemia; D64.9 Anemia, unspecified; I11.0 Hypertensive heart disease with heart failure; I25.2 Old myocardial infarction; Z95.5 Presence of coronary angioplasty implant and graft; Z88.8 Allergy status to other drugs, medicaments and biological substances; Z03.818 Encounter for observation for suspected exposure to other biological agents ruled out; Z99.81 Dependence on supplemental oxygen; Z79.4 Long term (current) use of insulin; Z90.49 Acquired absence of other specified parts of digestive tract; Z79.51 Long term (current) use of inhaled steroids; Z79.899 Other long term (current) drug therapy
CPT/HCPCS: 36415; 36600; 71045; 80048; 80053; 80202; 80307; 81001; 82803; 82962; 83735; 83880; 84443; 85025; 87040; 87070; 87077; 87150; 87186; 87205; 87252; 87635; 93005; 93010; 94002; 94003; 96374; 99291; 99292; J0696; J1170; J1650; J1815; J1940; J2250; J2270; J2310; J2704; J2920; J2930; J3010; J3370; J3490; J7030; J7060; J7620; J7626; S0028

== ENCOUNTER 2019-09-21 23:09 | Inpatient (IN) | payer MEDICARE, MEDICAID ==
[2019-09-21] MEDS ORDERED: VECURONIUM BROMIDE INJ 10 MG VIAL IV ONE (23:12)
[2019-09-21] MEDS ORDERED: LORAZEPAM INJ 2 MG/1 ML VIAL IV ONE (23:14)
[2019-09-21] MEDS ORDERED: NORMAL SALINE 1000 ML 1,000 ML IV ONE (23:49)
[2019-09-22] MEDS: NORMAL SALINE 1000 ML 1,000 ML IV PRN ×2 (00:10→01:24)
[2019-09-22 00:37] LABS: ARTERIAL BLOOD FIO2 100%; ARTERIAL BLOOD H2CO3 1.73 mmol/L (1.05-1.35); ARTERIAL BLOOD HCO3 32.5 mmol/L (20-24); ARTERIAL BLOOD O2 SATURATION 99.9 % (94-98); ARTERIAL BLOOD PCO2 57.5 mmHg (35-45); ARTERIAL BLOOD PH 7.37 (7.35-7.45); ARTERIAL BLOOD PO2 488.7 mmHg (80-100); ARTERIAL BLOOD TOTAL CO2 34.3 mmol/L (21-25)
[2019-09-22 00:53] LABS: HEMOGLOBIN 10.7 g/dL (12.0-15.5); MEAN CORPUSCULAR HEMOGLOBIN 28.1 pg (27.0-33.4); MEAN CORPUSCULAR HGB CONC 31.5 g/dL (32.0-36.0); MEAN CORPUSCULAR VOLUME 89 fl (80-97); PLATELET COUNT 514 10^3/uL (150-450); RED BLOOD COUNT 3.83 10^6/uL (3.72-5.28); WHITE BLOOD COUNT 20.2 10^3/uL (4.0-10.5)
[2019-09-22 01:00] LABS: APPEARANCE,URINE CLEAR; BILIRUBIN,URINE NEGATIVE (NEGATIVE); COLOR,URINE YELLOW; GLUCOSE, URINE NEGATIVE (NEGATIVE); KETONES,URINE NEGATIVE (NEGATIVE); PROTEIN,URINE NEGATIVE (NEGATIVE); URINE SPECIFIC GRAVITY 1.015; UROBILINOGEN,URINE NEGATIVE mg/dL (<2.0)
[2019-09-22 01:06] LABS: TROPONIN I 0.067 ng/mL
[2019-09-22 01:07] LABS: ABSOLUTE LYMPHOCYTES# (MANUAL) 4.8 10^3/uL (0.5-4.7); ABSOLUTE MONOCYTES # (MANUAL) 3.4 10^3/uL (0.1-1.4); BASOPHILS % (MANUAL) 0 % (0-2); EOSINOPHILS % (MANUAL) 0 % (0-6); LYMPHOCYTES % (MANUAL) 24 % (13-45); MONOCYTES % (MANUAL) 17 % (3-13); SEGMENTED NEUTROPHILS % (MAN) 59 % (42-78); TOTAL CELLS COUNTED 100
[2019-09-22 01:08] LABS: ANISOCYTOSIS 1+; PLATELET COMMENT ADEQUATE; POLYCHROMASIA 1+
[2019-09-22 01:26] LABS: ALBUMIN 3.3 g/dL (3.5-5.0); ALKALINE PHOSPHATASE 78 U/L (38-126); ASPARTATE AMINO TRANSFERASE 28 U/L (14-36); BILIRUBIN,DIRECT 0.1 mg/dL (0.0-0.4); BILIRUBIN,TOTAL 0.4 mg/dL (0.2-1.3); BLOOD UREA NITROGEN 14 mg/dL (7-20); CALCIUM 8.7 mg/dL (8.4-10.2); GLUCOSE 130 mg/dL (75-110); POTASSIUM 4.7 mmol/L (3.6-5.0); TOTAL PROTEIN 6.8 g/dL (6.3-8.2)
--- NOTE | 2019-09-22 01:28 | ER Document Report ---
Entered by CEDRICK GEE SCRIBE 09/22/19 0006 Acting as scribe for:CHI IBARRA IV, MD ED Respiratory Problem - General Chief Complaint: Respiratory Arrest Stated Complaint: RESPIRATORY DISTRESS Mode of Arrival: Medic Information source: Emergency Med Personnel Notes: This 64 year old female patient with a history of COPD, CHF, and continued tobacco use brought in by EMS from home presents to the ED today with complaints of respiratory distress that occurred just prior to arrival. Per EMS, patient called 911 for complaints of chest pain and dyspnea. Upon arrival, EMS found the patient to be 72% on 3L home O2 via NC with noted wheezing, so they administered x5 DuoNeb treatments and then placed the patient on CPAP with mild improvement in O2 sats. Patient then became obtunded and was intubated in the field with 7.5 ET tube, 22 cm at the lip. Per EMS, patient was given 19 mg Etomidate and 128 mg Succinylcholine for sedation, in addition to 100 mcg Fentanyl, 2.5 mg Versed, 128 mg Ketamine, 125 mg Solumedrol, 2 g Mag, and 250 ml Normal Saline. EMS also placed the patient in a rigid C-collar to stabilize the neck and keep the ET tube in place. Denies any trauma. EMS states that the patient is well known to them for respiratory calls and has a history of intubation. TRAVEL OUTSIDE OF THE [place] IN LAST 30 DAYS: No - Related Data Allergies/Adverse Reactions: zolpidem [From Ambien] Adverse Reaction (Verified 08/22/19 09:05) Past Medical History - General Information source: Emergency Med Personnel, REPLACED BY [facility] Records - Social History Smoking Status: Current Every Day Smoker Cigarette use (# per day): Yes Chew tobacco use (# tins/day): No Smoking Education Provided: No Family History: Reviewed & Not Pertinent Patient has suicidal ideation: No Patient has homicidal ideation: No - Past Medical History Cardiac Medical History: Reports: Hx Congestive Heart Failure, Hx Coronary Artery Disease, Hx Heart Attack, Hx Hypertension Pulmonary Medical History: Reports: Hx COPD, Hx Pneumonia, Hx Intubation, Hx Respiratory Failure Endocrine Medical History: Reports: Hx Diabetes Mellitus Type 2, Hx Hypothyroidism Musculoskeletal Medical History: Reports Hx Fibromyalgia Psychiatric Medical History: Reports: Hx Bipolar Disorder, Hx Depression Past Surgical History: Reports: Hx Appendectomy, Hx Cardiac Catheterization, Hx Cardiac Surgery, Hx Section - Immunizations Hx Diphtheria, Pertussis, Tetanus Vaccination: Yes Hx Pneumococcal Vaccination: 04/16/09 Review of Systems - Review of Systems -: Yes ROS unobtainable due to patient's medical condition - Intubated Physical Exam - Vital signs Vitals: Temp 98.0 F 09/21/19 23:15 - General General appearance: Other - Intubated on arrival - HEENT Head: Normocephalic, Atraumatic Eyes: Normal Pupils: PERRL - Respiratory Respiratory status: Other - Intubated Chest status: Nontender Breath sounds: Other - Coarse bilateral breath sounds Chest palpation: Normal - Cardiovascular Rhythm: Regular Heart sounds: Normal auscultation Murmur: No Friction rub: No Gallop: None auscultated - Abdominal Inspection: Normal Distension: No distension Bowel sounds: Normal Tenderness: Nontender - Abdomen soft Organomegaly: No organomegaly - Back Back: Normal, Nontender - Extremities General upper extremity: Normal inspection General lower extremity: Normal inspection. No: Edema - Neurological Neuro grossly intact: Yes - Psychological Associated symptoms: Other - Unable to assess due to patient's medical condition-Intubated - Skin Skin Temperature: Warm Skin Moisture: Dry Skin Color: Normal Course - Vital Signs Vital signs: Temp Pulse Resp BP Pulse Ox 97.6 F 15 155/87 H 95 09/22/19 03:00 09/22/19 03:00 09/22/19 02:51 09/22/19 03:00 - Laboratory Result Diagrams: 09/21/19 23:25 09/21/19 23:25 Laboratory results interpreted by me: 09/21/19 09/21/19 09/21/19 23:25 23:25 23:25 WBC 20.2 H Hgb 10.7 L Hct 34.0 L MCHC 31.5 L RDW 16.0 H Plt Count 514 H Monocytes % (Manual) 17 H Abs Neuts (Manual) 11.9 H Abs Lymphs (Manual) 4.8 H Abs Monocytes (Manual) 3.4 H Carbonic Acid ABG pCO2 ABG pO2 ABG HCO3 ABG Total CO2 ABG O2 Saturation Sodium 134.8 L Chloride 95 L Carbon Dioxide 37 H Anion Gap 3 L Glucose 130 H POC Glucose NT-Pro-B Natriuret Pep 860 H Albumin 3.3 L 09/21/19 09/22/19 23:38 00:05 WBC Hgb Hct MCHC RDW Plt Count Monocytes % (Manual) Abs Neuts (Manual) Abs Lymphs (Manual) Abs Monocytes (Manual) Carbonic Acid 1.73 H ABG pCO2 57.5 H ABG pO2 488.7 H ABG HCO3 32.5 H ABG Total CO2 34.3 H ABG O2 Saturation 99.9 H Sodium Chloride Carbon Dioxide Anion Gap Glucose POC Glucose 132 H NT-Pro-B Natriuret Pep Albumin - Diagnostic Test Radiology reviewed: Image reviewed - EKG Interpretation by Me Additional EKG results interpreted by me: 09/22/19 02:12 EKG obtained on 09/21/2019 at 2315 hrs. was interpreted by this MD. Findings: Rate 85, sinus rhythm, normal axis, P waves preceding QRS complexes, QRS complexes appear narrow, there are no obvious patterns of ST segment elevation or depression present to suggest acute myocardial ischemia or infarction. Impression: Normal sinus rhythm with nonspecific ST segments. - Consults sunita cruz, instructional materials director service Time consulted: 02:24 - sunita tejeda accepted pt on behalf of dr balbuena, instructional materials director service Reason for consultation: 09/22/19 02:25 respiratory failure, intubated Procedures - Central Line Right Internal jugular Time completed: 00:00 Consent obtained: No - emergent Central line pre-insertion: Sterile PPE donned, Chloraprep applied Central line lumen type: Triple Ultrasound guided: Yes CM at insertion site: 20 Line secured with sutures: Yes Central line post-insertion: Blood return from lumens, Biopatch applied, Sutured, Sterile dressing applied, Position confirmed w/ CXR Number of attempts: 2 Critical Care Note - Critical Care Note Total time excluding time spent on procedures (mins): 120 - vent management, sedation, vascular access, consult Discharge - Discharge Clinical Impression: Acute on chronic respiratory failure with hypoxia and hypercapnia Condition: Serious Disposition: ADMITTED INPATIENT Admitting Provider: Tom (Valve Grinder) Unit Admitted: ICU I personally performed the services described in the documentation, reviewed and edited the documentation which was dictated to the scribe in my presence, and it accurately records my words and actions.
[2019-09-22 01:32] LABS: CARBON DIOXIDE 37 mmol/L (22-30); CHLORIDE 95 mmol/L (98-107)
[2019-09-22 01:34] LABS: ANION GAP 3 (5-19)
[2019-09-22] MEDS ORDERED: PIPERACILLIN/TAZOBACTAM 3.375 GM VIAL IV ONE (01:35)
[2019-09-22] MEDS ORDERED: PIPERACILLIN/TAZOBACTAM 4.5 GM VIAL IV ONE (01:46)
[2019-09-22] MEDS ORDERED: MIDAZOLAM HCL 50 MG/100 ML RTUINJ IV PRN ×2 (01:53→22:42)
--- NOTE | 2019-09-22 02:33 | RADIOLOGY REPORT (SQ) ---
CLINICAL INDICATION: ett, ij placement, ogt placement. TECHNIQUE: A single portable AP view was obtained of the chest at 0143 hours. COMPARISON: August 23, 2019. FINDINGS: The cardiomediastinal silhouette is enlarged but stable. The lungs are grossly clear. No evidence of effusion or pneumothorax. The visualized bones are unremarkable. Chronic parenchymal lung change. Endotracheal tube, nasogastric tube, and central venous catheter are in good position IMPRESSION: Satisfactory placement of supportive appliances.
[2019-09-22] MEDS ORDERED: GLUCAGON,HUMAN RECOMB 1 MG INJ SUBCUT PRN (03:44)
[2019-09-22] MEDS ORDERED: DEXTROSE 50%-WATER 25 GM/50 ML DISP.SYRIN IV PRN ×4 (03:44→20:04)
[2019-09-22] MEDS ORDERED: DEXTROSE 40% GEL 15 GM TUBE PO PRN ×4 (03:44→20:04)
[2019-09-22] MEDS ORDERED: METHYLPREDNISOLONE INJ 125 MG/2 ML SDV IV ONE (04:30)
[2019-09-22] MEDS ORDERED: HEPARIN SOD (PORCINE) 5,000 UNIT/ML 1 ML VIAL SUBCUT ONE (04:30)
[2019-09-22] MEDS ORDERED: FAMOTIDINE INJ/PF 20 MG/2 ML SDV IV ONE (04:30)
--- NOTE | 2019-09-22 05:39 | CRITICAL CARE ADMISSION REPORT ---
[facility] Date:: 09/22/19 Time:: 05:00 Reason for ICU Reason:: AECOPD, Respiratatory Failure HPI: 64-year-old female with a history of DM, HTN, CAD, bipolar disorder, COPD and C HF requiring multiple admissions to the intensive care unit. Patient called EMS due to chest pain and dyspnea. Upon arrival, EMS found patient to be obtunded and she was subsequently intubated. Upon arrival to the ED, she was hypotensive and a right IJ TLC was placed for vasoactive medication administration. Emergency room MD consulted critical care for admission and management of this patient's respiratory failure. History obtained from:: Emergency room staff, medical documentation. - Diagnosis/Plan (1) Acute on chronic respiratory failure with hypoxia and hypercapnia Is this a current diagnosis for this admission?: Yes Plan: Patient with a very frequent history of intubations. Continue mechanical ventilation and begin to wean as tolerated. Titrate FiO2 to maintain SPO2 of 88-95%. Obtain baseline ABG with note of minute ventilation at time of blood draw. COVID-19 being tested due to respiratory failure. This admission is likely more consistent with her frequent episodes of respiratory failure, however given her poor respiratory and cardiac health, she is likely more susceptible to the COVID-19 virus and therefore should be ruled out and remain on isolation until that time. (2) CHF (congestive heart failure) Qualifiers: Heart failure chronicity: acute on chronic Is this a current diagnosis for this admission?: Yes Plan: CHF is often a complicating factor in her respiratory failure. Her proBNP during this admission however, is only mildly elevated. Maintain mean arterial pressure in the 70s. Monitor strict I's and O's Repeat and monitor proBNP levels in a.m. (3) COPD with acute exacerbation Is this a current diagnosis for this admission?: Yes Plan: As above, continue mechanical ventilation. Begin Solu-Medrol IV. Continue duo nebs and antibiotics. Continue chest PT and pulmonary toileting. Despite multiple intubations, patient continues to smoke. When extubated, extensive counseling would be required to help with her nicotine addiction. 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 Begin regular insulin sliding scale. Glucose likely to be elevated during admission due to stress, and steroid administration. Past Medical History Cardiac Medical History: Reports: Congestive Heart Failure, Coronary Artery Disease, Myocardial Infarction, Hypertension Pulmonary Medical History: Reports: Chronic Obstructive Pulmonary Disease (COPD), Intubation, Pneumonia, Respiratory Failure Denies: Tuberculosis Neurological Medical History: Denies: Seizures Endocrine Medical History: Reports: Diabetes Mellitus Type 2, Hypothyroidism Musculoskeltal Medical History: Reports: Fibromyalgia Psychiatric Medical History: Reports: Bipolar Disorder, Depression Past Surgical History Past Surgical History: Reports: Appendectomy, Cardiac Catheterization, Section Denies: Pacemaker Social/Family History - Social History Smoking Status: Current Every Day Smoker Frequency of Alcohol Use: None Hx Recreational Drug Use: No Drugs: None Hx Prescription Drug Abuse: No - Medication/Allergies Home Medications: Baclofen [Baclofen 10 mg Tablet] 5 mg PO Q12 01/20/18 Buprenorphine HCl/Naloxone HCl [Suboxone 8 mg-2 mg Sl Film] 2.5 film SL DAILY MDD 3 FILMS 01/20/18 Ipratropium/Albuterol Sulfate [Combivent Respimat 4 gm Mdi] 1 puff IH Q6HP PRN MDD 6 PUFFS 05/03/18 Levothyroxine Sodium [Synthroid 0.05 mg Tablet] 50 mcg PO Q6AM 05/03/18 Ropinirole HCl [Requip 2 mg Tablet] 2 mg PO DAILY 05/03/18 Albuterol Sulfate [Ventolin Hfa 8 gm Mdi] 2 puff IH Q4HP PRN 08/20/19 Amlodipine Besylate [Norvasc 5 mg Tablet] 5 mg PO DAILY 08/20/19 Atorvastatin Calcium [Lipitor 40 mg Tablet] 40 mg PO QHS 08/20/19 Carvedilol [Coreg 3.125 mg Tablet] 3.125 mg PO Q12 08/20/19 Citalopram Hydrobromide [Celexa 20 mg Tablet] 20 mg PO DAILY 08/20/19 Doxepin HCl [Sinequan 10 mg Capsule] 20 mg PO QHS 08/20/19 Fluticasone Propionate [Flonase Nasal Gerber 50 Mcg/Gerber 16 gm] 1 spray NASL DAILY 08/20/19 Furosemide [Lasix 40 mg Tablet] 40 mg PO QAM 08/20/19 Gabapentin [Neurontin 300 mg Capsule] 600 mg PO Q8 08/20/19 Hydroxyzine HCl [Atarax 10 mg Tablet] 10 mg PO BID 08/20/19 Levofloxacin [Levaquin 500 mg Tablet] 500 mg PO DAILY 08/20/19 Nicotine [Nicoderm 21 mg/24 Hr Transderm Patch] 1 each TD DAILY patch.td24 08/26/19 Prednisone [Deltasone 20 mg Tablet] 40 mg PO DAILY #10 tablet 08/26/19 Allergies/Adverse Reactions: zolpidem [From Ambien] Adverse Reaction (Verified 08/22/19 09:05) Review of Systems ROS unobtainable: Due to endotracheal tube, Due to mental status Physical Exam Vital Signs: Temp Pulse Resp BP Pulse Ox 97.7 F 16 116/64 94 09/22/19 04:26 09/22/19 04:26 09/22/19 04:26 09/22/19 04:26 Intake & Output 09/20/19 09/21/19 09/22/19 06:59 06:59 06:59 Intake Total 3002 Output Total 2000 Balance 1002 Weight 62.6 kg Weight/Height Weight 62.6 kg Height 5 ft 2 in General appearance: PRESENT: no acute distress Head exam: PRESENT: atraumatic Eye exam: PRESENT: PERRLA Neck exam: ABSENT: carotid bruit, JVD Respiratory exam: PRESENT: decreased breath sounds. ABSENT: rales, wheezes Cardiovascular exam: PRESENT: RRR, +S1, +S2 Pulses: PRESENT: normal carotid pulses, normal radial pulses GI/Abdominal exam: PRESENT: hypoactive bowel sounds, soft. ABSENT: distended Extremities exam: PRESENT: +1 edema Neurological exam: PRESENT: CN II-XII grossly intact Skin exam: PRESENT: dry, intact, normal color. ABSENT: abrasion Tubes/Lines: PRESENT: Endotracheal Tube, Central Line Laboratory/Radiographs Laboratory Results: 09/21/19 23:25 09/21/19 23:25 09/21/19 09/21/19 09/21/19 23:25 23:25 23:34 WBC 20.2 H RBC 3.83 Hgb 10.7 L Hct 34.0 L MCV 89 MCH 28.1 MCHC 31.5 L RDW 16.0 H Plt Count 514 H Seg Neutrophils % Not Reportable Carbonic Acid HCO3/H2CO3 Ratio ABG pH ABG pCO2 ABG pO2 ABG HCO3 ABG O2 Saturation ABG Base Excess FiO2 Sodium 134.8 L Potassium 4.7 Chloride 95 L Carbon Dioxide 37 H Anion Gap 3 L BUN 14 Creatinine 0.69 Est GFR ( Amer) > 60 Glucose 130 H Lactic Acid Calcium 8.7 Total Bilirubin 0.4 AST 28 Alkaline Phosphatase 78 Total Protein 6.8 Albumin 3.3 L Urine Color YELLOW Urine Appearance CLEAR Urine pH 6.0 Ur Specific [place] 1.015 Urine Protein NEGATIVE Urine Glucose (UA) NEGATIVE Urine Ketones NEGATIVE Urine Blood NEGATIVE Urine RBC (Auto) 2 09/22/19 09/22/19 00:05 02:44 WBC RBC Hgb Hct MCV MCH MCHC RDW Plt Count Seg Neutrophils % Carbonic Acid 1.73 H HCO3/H2CO3 Ratio 18:1 ABG pH 7.37 ABG pCO2 57.5 H ABG pO2 488.7 H ABG HCO3 32.5 H ABG O2 Saturation 99.9 H ABG Base Excess 6.0 FiO2 100% Sodium Potassium Chloride Carbon Dioxide Anion Gap BUN Creatinine Est GFR ( Amer) Glucose Lactic Acid 1.0 Calcium Total Bilirubin AST Alkaline Phosphatase Total Protein Albumin Urine Color Urine Appearance Urine pH Ur Specific [place] Urine Protein Urine Glucose (UA) Urine Ketones Urine Blood Urine RBC (Auto) 09/21/19 23:25 Troponin I 0.067 NT-Pro-B Natriuret Pep 860 H Impressions: Chest X-Ray 09/22/19 01:20 IMPRESSION: Satisfactory placement of supportive appliances. All labs, radiographs, diagnostic studies and EKGs were personally reviewed: Yes In addition, reports of radiographic and diagnostic studies were read: Yes Critical Time Critical Time (minutes): 65 -: The care of a critically ill patient is dynamic. This note represents a static moment in the admission process. Orders and treatments may be given simultaneously and urgently, and time is not brewery representative of the treatment process. This patient requires Critical Care secondary to life threatening organ or limb dysfunction. Without Critical Care services, the patient is at risk for increased mortality and morbidity.
[2019-09-22] MEDS ORDERED: CEFEPIME 1 GM/D5W RTU 1 GM/50 ML RTUPB IV SCH (06:00)
[2019-09-22 07:05] LABS: HEMATOCRIT 32.9 % (36.0-47.0); HEMOGLOBIN 10.5 g/dL (12.0-15.5); MEAN CORPUSCULAR HEMOGLOBIN 28.1 pg (27.0-33.4); MEAN CORPUSCULAR HGB CONC 31.9 g/dL (32.0-36.0); MEAN CORPUSCULAR VOLUME 88 fl (80-97); PLATELET COUNT 407 10^3/uL (150-450); RED BLOOD COUNT 3.73 10^6/uL (3.72-5.28); RED CELL DISTRIBUTION WIDTH 16.2 % (11.5-14.0); WHITE BLOOD COUNT 19.2 10^3/uL (4.0-10.5)
[2019-09-22 07:20] LABS: BLOOD UREA NITROGEN 13 mg/dL (7-20); CHLORIDE 100 mmol/L (98-107); GLUCOSE 136 mg/dL (75-110); POTASSIUM 4.7 mmol/L (3.6-5.0)
[2019-09-22 07:25] LABS: CARBON DIOXIDE 34 mmol/L (22-30)
[2019-09-22 07:30] LABS: ABSOLUTE LYMPHOCYTES# (MANUAL) 1.3 10^3/uL (0.5-4.7); BAND NEUTROPHILS % (MANUAL) 1 % (3-5); BASOPHILS % (MANUAL) 0 % (0-2); EOSINOPHILS % (MANUAL) 0 % (0-6); LYMPHOCYTES % (MANUAL) 7 % (13-45); MONOCYTES % (MANUAL) 5 % (3-13); SEGMENTED NEUTROPHILS % (MAN) 87 % (42-78); TOTAL CELLS COUNTED 100
[2019-09-22 07:32] LABS: ANISOCYTOSIS 1+; PLATELET COMMENT ADEQUATE; TOXIC GRANULATION 1+
[2019-09-22 07:34] LABS: ANION GAP 1 (5-19)
--- NOTE | 2019-09-22 08:01 | EKG REPORT ---
SEVERITY:- ABNORMAL ECG - SINUS RHYTHM RIGHT ATRIAL ABNORMALITY RIGHT AXIS DEVIATION : Confirmed by: Daniela Vasquez 22-Sep-2019 08:01:23
[2019-09-22] MEDS: IPRATROPIUM/ALBUTEROL 0.5-2.5 MG/3 ML AMPUL NEB PRN ×2 (08:13→18:50)
[2019-09-22] MEDS ORDERED: CEFEPIME 1 GM/D5W RTU 1 GM/50 ML RTUPB IV ONE (10:00)
--- NOTE | 2019-09-22 10:18 | Progress Note ---
Provider Note Provider Note: This patient has only been here a few hours and has been here frequently. Will try to wean and change sedation to diprivan.
[2019-09-22] MEDS: PROPOFOL 1,000 MG/100 ML INFUS..BTL IV PRN ×2 (10:57→22:33)
[2019-09-22] MEDS: METHYLPREDNISOLONE INJ 125 MG/2 ML SDV IV SCH ×2 (14:28→22:36)
[2019-09-22] MEDS: HEPARIN SOD (PORCINE) 5,000 UNIT/ML 1 ML VIAL SUBCUT SCH ×2 (14:28→22:37)
[2019-09-22] MEDS: FAMOTIDINE INJ/PF 20 MG/2 ML SDV IV SCH (17:13)
[2019-09-22] MEDS ORDERED: CEFEPIME HCL 2 GM in DEXTROSE 5%-WATER 50 ML IV SCH (18:00)
[2019-09-22] MEDS ORDERED: GLUCAGON,HUMAN RECOMB 1 MG INJ IM PRN (20:04)
[2019-09-22] MEDS: INSULIN LISPRO 100 UNIT/ML 3 ML VIAL SUBCUT SCH ×2 (20:41→23:39)
[2019-09-22 20:50] LABS: ARTERIAL BLOOD H2CO3 1.48 mmol/L (1.05-1.35); ARTERIAL BLOOD HCO3 31.4 mmol/L (20-24); ARTERIAL BLOOD O2 SATURATION 92.7 % (94-98); ARTERIAL BLOOD PCO2 49.2 mmHg (35-45); ARTERIAL BLOOD PH 7.42 (7.35-7.45); ARTERIAL BLOOD PO2 64.2 mmHg (80-100); ARTERIAL BLOOD TOTAL CO2 32.9 mmol/L (21-25)
[2019-09-22 20:51] LABS: ARTERIAL BLOOD FIO2 40%
[2019-09-22] MEDS ORDERED: NORMAL SALINE INJ/PF 0.9% 10 ML SDV IV PRN (21:12)
[2019-09-23 05:34] LABS: BLOOD UREA NITROGEN 27 mg/dL (7-20); CALCIUM 8.4 mg/dL (8.4-10.2); CARBON DIOXIDE 30 mmol/L (22-30); CHLORIDE 100 mmol/L (98-107); GLUCOSE 139 mg/dL (75-110); POTASSIUM 4.6 mmol/L (3.6-5.0)
[2019-09-23 05:56] LABS: ANION GAP 4 (5-19)
[2019-09-23] MEDS: PROPOFOL 1,000 MG/100 ML INFUS..BTL IV PRN (06:15)
[2019-09-23] MEDS: INSULIN LISPRO 100 UNIT/ML 3 ML VIAL SUBCUT SCH ×3 (06:25→18:54)
[2019-09-23] MEDS: FAMOTIDINE INJ/PF 20 MG/2 ML SDV IV SCH ×2 (06:36→18:55)
[2019-09-23] MEDS: HEPARIN SOD (PORCINE) 5,000 UNIT/ML 1 ML VIAL SUBCUT SCH ×3 (06:36→22:41)
[2019-09-23] MEDS: METHYLPREDNISOLONE INJ 125 MG/2 ML SDV IV SCH (06:37)
[2019-09-23 07:18] LABS: HEMATOCRIT 31.8 % (36.0-47.0); HEMOGLOBIN 10.2 g/dL (12.0-15.5); MEAN CORPUSCULAR HEMOGLOBIN 27.9 pg (27.0-33.4); MEAN CORPUSCULAR HGB CONC 32.1 g/dL (32.0-36.0); MEAN CORPUSCULAR VOLUME 87 fl (80-97); PLATELET COUNT 418 10^3/uL (150-450); RED BLOOD COUNT 3.67 10^6/uL (3.72-5.28); RED CELL DISTRIBUTION WIDTH 16.1 % (11.5-14.0)
[2019-09-23 08:00] LABS: ABSOLUTE LYMPHOCYTES# (MANUAL) 1.5 10^3/uL (0.5-4.7); ABSOLUTE MONOCYTES # (MANUAL) 0.9 10^3/uL (0.1-1.4); BAND NEUTROPHILS % (MANUAL) 1 % (3-5); BASOPHILS % (MANUAL) 0 % (0-2); EOSINOPHILS % (MANUAL) 0 % (0-6); LYMPHOCYTES % (MANUAL) 7 % (13-45); MONOCYTES % (MANUAL) 4 % (3-13); SEGMENTED NEUTROPHILS % (MAN) 88 % (42-78); TOTAL CELLS COUNTED 100
[2019-09-23 08:01] LABS: ANISOCYTOSIS 1+; PLATELET COMMENT ADEQUATE; TOXIC GRANULATION 1+
[2019-09-23] MEDS ORDERED: METHYLPREDNISOLONE INJ 125 MG/2 ML SDV IV SCH (08:30)
[2019-09-23] MEDS ORDERED: NYSTATIN 500000 UNIT/5 ML UDCUP PO PRN (08:31)
[2019-09-23] MEDS ORDERED: (PENDING PHARMACY ID) (Ipratropium/Albuterol Sulfate [Combivent Respimat 4 Gm Mdi] 1 PUFF) IH PRN (08:31)
--- NOTE | 2019-09-23 08:43 | PDOC CRITICAL CARE PROG REPORT ---
General Date:: 09/23/19 ICU Day:: 2 Ventilator Day:: 2 Hospital Day:: 2 Resuscitation Status: Full Code Events in the past 12 to 24 Hours:: COVID still pending. Ready to wean. Review of systems relevant to events:: Pulmonary Reason for ICU Addmission:: AECOPD, Respiratatory Failure, intubated. - Medications: Medications reviewed and adjusted accordingly: Yes Vasopressors:: None Sedation:: Diprivan. Physical Exam Vital Signs: Temp Pulse Resp BP Pulse Ox 36.5 F L 97 18 123/67 96 09/22/19 08:00 09/22/19 20:00 09/23/19 06:05 09/23/19 06:05 09/23/19 07:03 Intake & Output 09/22/19 09/23/19 09/24/19 06:59 06:59 06:59 Intake Total 3010 251 Output Total 2150 712 Balance 860 -461 Weight 62.1 kg 61.7 kg Weight/Height Weight 61.7 kg Height 5 ft 2 in General appearance: PRESENT: no acute distress, thin Head exam: PRESENT: atraumatic, normocephalic Eye exam: PRESENT: conjunctiva pink, EOMI, PERRLA. ABSENT: scleral icterus Ear exam: PRESENT: normal external ear exam Mouth exam: PRESENT: moist, tongue midline Respiratory exam: PRESENT: clear to auscultation lopez. ABSENT: rales, rhonchi, wheezes Cardiovascular exam: PRESENT: RRR. ABSENT: diastolic murmur, rubs, systolic murmur GI/Abdominal exam: PRESENT: normal bowel sounds, soft. ABSENT: distended, guarding, mass, organolmegaly, rebound, tenderness Rectal exam: PRESENT: deferred Gentrourinary exam: PRESENT: indwelling catheter Extremities exam: PRESENT: full ROM. ABSENT: calf tenderness, clubbing, pedal edema Musculoskeletal exam: PRESENT: normal inspection Neurological exam: PRESENT: other - Sedated Skin exam: PRESENT: dry, intact, warm. ABSENT: cyanosis, rash Tubes/Lines: PRESENT: Endotracheal Tube, Nasogastic Tube Laboratory/Radiographs Laboratory Results: 09/23/19 06:50 09/23/19 04:50 09/22/19 09/22/19 09/23/19 06:43 20:25 04:50 WBC RBC Hgb Hct MCV MCH MCHC RDW Plt Count Seg Neutrophils % Carbonic Acid 1.48 H HCO3/H2CO3 Ratio 21:1 ABG pH 7.42 ABG pCO2 49.2 H ABG pO2 64.2 L ABG HCO3 31.4 H ABG O2 Saturation 92.7 L ABG Base Excess 6.0 FiO2 40% Sodium 134.2 L Potassium 4.6 Chloride 100 Carbon Dioxide 30 Anion Gap 4 L BUN 27 H Creatinine 0.67 Est GFR ( Amer) > 60 Glucose 139 H Calcium 8.4 Triglycerides 62 09/23/19 06:50 WBC 22.0 H RBC 3.67 L Hgb 10.2 L Hct 31.8 L MCV 87 MCH 27.9 MCHC 32.1 RDW 16.1 H Plt Count 418 Seg Neutrophils % Not Reportable Carbonic Acid HCO3/H2CO3 Ratio ABG pH ABG pCO2 ABG pO2 ABG HCO3 ABG O2 Saturation ABG Base Excess FiO2 Sodium Potassium Chloride Carbon Dioxide Anion Gap BUN Creatinine Est GFR ( Amer) Glucose Calcium Triglycerides 09/21/19 23:25 Troponin I 0.067 NT-Pro-B Natriuret Pep 860 H Impressions: Chest X-Ray 09/22/19 01:20 IMPRESSION: Satisfactory placement of supportive appliances. All labs, radiographs, diagnostic studies and EKGs were personally reviewed: Yes In addition, reports of radiographic and diagnostic studies were read: Yes Assessment and Plan - Diagnosis (1) Bipolar disorder Qualifiers: Active/Remission status: remission status unspecified Qualified Code(s): F31.9 - Bipolar disorder, unspecified Is this a current diagnosis for this admission?: Yes Plan: er psychiatric medications have been restarted. (2) COPD with acute exacerbation Is this a current diagnosis for this admission?: Yes Plan: Wheezing and hypoxia noted in field before ED admission (3) Chronic pain Qualifiers: Chronic pain type: chronic pain syndrome Qualified Code(s): G89.4 - Chronic pain syndrome Is this a current diagnosis for this admission?: Yes Plan: Suboxone restarted. (4) HTN (hypertension) Qualifiers: Hypertension type: essential hypertension Qualified Code(s): I10 - [place] l (primary) hypertension Is this a current diagnosis for this admission?: Yes Plan: Controlled (5) Restless leg syndrome Is this a current diagnosis for this admission?: Yes Plan: Requip restarted. (6) Diabetes mellitus, type II Qualifiers: Diabetes mellitus half-way insulin use: unspecified half-way insulin use status Diabetes mellitus complication status: without complication Qualified Code(s): E11.9 - Type 2 diabetes mellitus without complications Is this a current diagnosis for this admission?: Yes Plan: Controlled even on steroids which have been cut down. Plan Summary: Wean and hope to extubate today. Critical Time Critical Time (minutes): 35 Level of Care: ICU Anticipated discharge: Home Within: Other -: 1. The care of a critical patient is a dynamic process. This note is a outside sales account representative synopsis but static in nature. The timeframe for treatments given in order is not necessarily the actual time these treatments may have been done. 2. This patient requires critical care secondary to ongoing requirements for therapy not offered or safe outside the critical care environment. Transfer to a lower level of care will result in altered life or limb morbidity and mortality. 3. Multidisciplinary rounds completed. 4. ABCDE bundle addressed.
[2019-09-23] MEDS: CITALOPRAM HYDROBROMIDE 20 MG TABLET PO SCH (09:13)
[2019-09-23] MEDS: CARVEDILOL 3.125 MG TABLET PO SCH ×2 (09:14→22:39)
[2019-09-23] MEDS: FLUTICASONE NASAL SPRAY 50 MCG/SPRY 120 SPRAY/16 GM NASL SCH (09:47)
[2019-09-23] MEDS: ROPINIROLE HCL 2 MG TABLET PO SCH (09:47)
[2019-09-23] MEDS: BACLOFEN 10 MG TABLET PO SCH ×2 (09:47→22:39)
[2019-09-23] MEDS ORDERED: IPRATROPIUM/ALBUTEROL 0.5-2.5 MG/3 ML AMPUL NEB PRN (09:53)
[2019-09-23] MEDS ORDERED: (PENDING PHARMACY ID) (Ipratropium/Albuterol Sulfate [Combivent Respimat 4 Gm Mdi] 1 PUFF) IH SCH (10:00)
[2019-09-23] MEDS ORDERED: NALOXONE HCL SL SCH (10:00)
[2019-09-23] MEDS ORDERED: [UNRECOGNIZED DRUG - OTHER] SL SCH (10:00)
[2019-09-23] MEDS ORDERED: BUPRENORPHINE HCL SL SCH (10:00)
[2019-09-23] MEDS ORDERED: FLUTICASONE/VILANTEROL 200-25 MCG/DOSE IH SCH (11:00)
[2019-09-23] MEDS: METHYLPREDNISOLONE INJ 40 MG/1 ML SDV IV SCH ×2 (13:36→22:40)
[2019-09-23 13:43] LABS: ARTERIAL BLOOD BASE EXCESS 7.1 mmol/L; ARTERIAL BLOOD H2CO3 1.41 mmol/L (1.05-1.35); ARTERIAL BLOOD HCO3 31.9 mmol/L (20-24); ARTERIAL BLOOD PCO2 46.8 mmHg (35-45); ARTERIAL BLOOD PH 7.45 (7.35-7.45); ARTERIAL BLOOD TOTAL CO2 33.4 mmol/L (21-25)
[2019-09-23 13:45] LABS: ARTERIAL BLOOD FIO2 35%
[2019-09-23] MEDS: RINGERS SOLUTION,LACTATED 1,000 ML IV PRN ×2 (13:54→22:36)
[2019-09-23] MEDS ORDERED: IPRATROPIUM/ALBUTEROL 0.5-2.5 MG/3 ML AMPUL NEB SCH ×2 (14:00→20:00)
[2019-09-23] MEDS: IPRATROPIUM/ALBUTEROL 0.5-2.5 MG/3 ML AMPUL NEB PRN (15:50)
[2019-09-23] MEDS ORDERED: ALBUTEROL SULFATE HFA (90 MCG/PUFF) 8 GM MDI IH PRN (18:13)
[2019-09-23] MEDS: ALBUTEROL SULFATE 0.083% NEB 2.5 MG/3 ML AMPUL NEB SCH (20:47)
[2019-09-23 21:10] LABS: ARTERIAL BLOOD BASE EXCESS 3.7 mmol/L; ARTERIAL BLOOD H2CO3 1.43 mmol/L (1.05-1.35); ARTERIAL BLOOD HCO3 29.1 mmol/L (20-24); ARTERIAL BLOOD O2 SATURATION 95.1 % (94-98); ARTERIAL BLOOD PCO2 47.4 mmHg (35-45); ARTERIAL BLOOD PH 7.41 (7.35-7.45); ARTERIAL BLOOD PO2 75.5 mmHg (80-100); ARTERIAL BLOOD TOTAL CO2 30.6 mmol/L (21-25)
[2019-09-23 21:11] LABS: ARTERIAL BLOOD FIO2 40%
[2019-09-23] MEDS: DOXEPIN HCL 10 MG CAPSULE PO SCH (22:38)
[2019-09-23] MEDS: ATORVASTATIN CALCIUM 40 MG TABLET PO SCH (22:38)
[2019-09-24] MEDS: INSULIN LISPRO 100 UNIT/ML 3 ML VIAL SUBCUT SCH ×4 (00:20→17:08)
[2019-09-24 05:35] LABS: ANION GAP 6 (5-19); BLOOD UREA NITROGEN 33 mg/dL (7-20); CALCIUM 8.8 mg/dL (8.4-10.2); CARBON DIOXIDE 32 mmol/L (22-30); CHLORIDE 96 mmol/L (98-107); GLUCOSE 125 mg/dL (75-110); POTASSIUM 4.6 mmol/L (3.6-5.0)
[2019-09-24 05:55] LABS: HEMOGLOBIN 11.5 g/dL (12.0-15.5); MEAN CORPUSCULAR HEMOGLOBIN 27.9 pg (27.0-33.4); MEAN CORPUSCULAR HGB CONC 32.8 g/dL (32.0-36.0); MEAN CORPUSCULAR VOLUME 85 fl (80-97); PLATELET COUNT 474 10^3/uL (150-450); RED BLOOD COUNT 4.12 10^6/uL (3.72-5.28); RED CELL DISTRIBUTION WIDTH 16.2 % (11.5-14.0); WHITE BLOOD COUNT 26.2 10^3/uL (4.0-10.5)
[2019-09-24 06:04] LABS: ABSOLUTE LYMPHOCYTES# (MANUAL) 1.3 10^3/uL (0.5-4.7); ABSOLUTE MONOCYTES # (MANUAL) 0.8 10^3/uL (0.1-1.4); BAND NEUTROPHILS % (MANUAL) 1 % (3-5); BASOPHILS % (MANUAL) 0 % (0-2); EOSINOPHILS % (MANUAL) 0 % (0-6); LYMPHOCYTES % (MANUAL) 5 % (13-45); MONOCYTES % (MANUAL) 3 % (3-13); SEGMENTED NEUTROPHILS % (MAN) 91 % (42-78); TOTAL CELLS COUNTED 100
[2019-09-24 06:05] LABS: ANISOCYTOSIS 1+; OVALOCYTES SLIGHT; PLATELET COMMENT ADEQUATE; POIKILOCYTOSIS SLIGHT; SCHISTOCYTES SLIGHT; TEAR DROP CELLS SLIGHT; TOXIC GRANULATION SLIGHT
[2019-09-24] MEDS: FAMOTIDINE INJ/PF 20 MG/2 ML SDV IV SCH (06:23)
[2019-09-24] MEDS: LEVOTHYROXINE SODIUM 0.05 MG TABLET PO SCH (06:23)
[2019-09-24] MEDS: HEPARIN SOD (PORCINE) 5,000 UNIT/ML 1 ML VIAL SUBCUT SCH ×3 (06:23→22:18)
[2019-09-24] MEDS: METHYLPREDNISOLONE INJ 40 MG/1 ML SDV IV SCH (06:24)
--- NOTE | 2019-09-24 08:56 | PDOC CRITICAL CARE PROG REPORT ---
General Date:: 09/24/19 ICU Day:: 2 Hospital Day:: 2 Resuscitation Status: Full Code Events in the past 12 to 24 Hours:: Extubated and doing well Review of systems relevant to events:: Pulmonary, psychiatric Reason for ICU Addmission:: AECOPD, Respiratatory Failure, intubated. Now extubated and getting back to baseline. - Medications: Medications reviewed and adjusted accordingly: Yes Vasopressors:: None Sedation:: None Physical Exam Vital Signs: Temp Pulse Resp BP Pulse Ox 36.5 F L 111 H 12 170/90 H 97 09/22/19 08:00 09/23/19 20:47 09/24/19 08:36 09/24/19 08:36 09/24/19 08:36 Intake & Output 09/23/19 09/24/19 09/25/19 06:59 06:59 06:59 Intake Total 251 1220 Output Total 712 1675 400 Balance -461 -455 -400 Weight 61.7 kg 62.8 kg Weight/Height Weight 62.8 kg Height 5 ft 2 in General appearance: PRESENT: no acute distress, cooperative, thin Head exam: PRESENT: atraumatic, normocephalic Eye exam: PRESENT: conjunctiva pink, EOMI, PERRLA. ABSENT: scleral icterus Ear exam: PRESENT: normal external ear exam Mouth exam: PRESENT: moist, tongue midline Neck exam: ABSENT: carotid bruit, JVD, lymphadenopathy, thyromegaly Respiratory exam: PRESENT: clear to auscultation lopez, decreased breath sounds. ABSENT: rales, rhonchi, wheezes Cardiovascular exam: PRESENT: RRR, tachycardia. ABSENT: diastolic murmur, rubs, systolic murmur GI/Abdominal exam: PRESENT: ascites Rectal exam: PRESENT: deferred Gentrourinary exam: PRESENT: indwelling catheter - To D/C cardenas today. Extremities exam: PRESENT: full ROM. ABSENT: calf tenderness, clubbing, pedal edema Neurological exam: PRESENT: alert, awake, CN II-XII grossly intact, other - She seems to understand and is cooperative but chooses to be non-verbal. No complaints Psychiatric exam: PRESENT: unusual affect Skin exam: PRESENT: dry, intact, warm. ABSENT: cyanosis, rash Tubes/Lines: PRESENT: Central Line - To be removed Laboratory/Radiographs Laboratory Results: 09/24/19 05:10 09/24/19 05:10 09/23/19 09/23/19 09/24/19 13:20 20:50 05:10 WBC RBC Hgb Hct MCV MCH MCHC RDW Plt Count Seg Neutrophils % Carbonic Acid 1.41 H 1.43 H HCO3/H2CO3 Ratio 22:1 20:1 ABG pH 7.45 7.41 ABG pCO2 46.8 H 47.4 H ABG pO2 67.0 L 75.5 L ABG HCO3 31.9 H 29.1 H ABG O2 Saturation 94.0 95.1 ABG Base Excess 7.1 3.7 FiO2 35% 40% Sodium 133.8 L Potassium 4.6 Chloride 96 L Carbon Dioxide 32 H Anion Gap 6 BUN 33 H Creatinine 0.63 Est GFR ( Amer) > 60 Glucose 125 H Calcium 8.8 09/24/19 05:10 WBC 26.2 H RBC 4.12 Hgb 11.5 L Hct 35.0 L MCV 85 MCH 27.9 MCHC 32.8 RDW 16.2 H Plt Count 474 H Seg Neutrophils % Not Reportable Carbonic Acid HCO3/H2CO3 Ratio ABG pH ABG pCO2 ABG pO2 ABG HCO3 ABG O2 Saturation ABG Base Excess FiO2 Sodium Potassium Chloride Carbon Dioxide Anion Gap BUN Creatinine Est GFR ( Amer) Glucose Calcium 09/21/19 23:25 Troponin I 0.067 NT-Pro-B Natriuret Pep 860 H Impressions: Chest X-Ray 09/22/19 01:20 IMPRESSION: Satisfactory placement of supportive appliances. All labs, radiographs, diagnostic studies and EKGs were personally reviewed: Yes In addition, reports of radiographic and diagnostic studies were read: Yes Assessment and Plan - Diagnosis (1) Bipolar disorder Qualifiers: Active/Remission status: remission status unspecified Qualified Code(s): F31.9 - Bipolar disorder, unspecified Is this a current diagnosis for this admission?: Yes Plan: This is likely contributing to her non-verbal nature. All listed psychiatric medications have been restarted. (2) COPD with acute exacerbation Is this a current diagnosis for this admission?: Yes Plan: No longer active. On predisone, solumedrol stopped. (3) Chronic pain Qualifiers: Chronic pain type: chronic pain syndrome Qualified Code(s): G89.4 - Chronic pain syndrome Is this a current diagnosis for this admission?: Yes Plan: Back on suboxone (4) HTN (hypertension) Qualifiers: Hypertension type: essential hypertension Qualified Code(s): I10 - Essential (primary) hypertension Is this a current diagnosis for this admission?: Yes Plan: Controlled. (5) Restless leg syndrome Is this a current diagnosis for this admission?: Yes Plan: Back on requip. No complaints. 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 (7) Leukocytosis Qualifiers: Leukocytosis type: leukemoid reaction Qualified Code(s): D72.823 - Leukemoid reaction Is this a current diagnosis for this admission?: Yes Plan: Likely 26K due to steroids. No fever, no secretions. To remove cardenas and TLC today. Plan Summary: Stable and ready for the medical floor. Home soon. Critical Time Critical Time (minutes): 30 Level of Care: MEDICAL Anticipated discharge: Home Within: within 48 hours -: 1. The care of a critical patient is a dynamic process. This note is a retail account representative synopsis but static in nature. The timeframe for treatments given in order is not necessarily the actual time these treatments may have been done. 2. This patient requires critical care secondary to ongoing requirements for therapy not offered or safe outside the critical care environment. Transfer to a lower level of care will result in altered life or limb morbidity and mortality. 3. Multidisciplinary rounds completed. 4. ABCDE bundle addressed.
[2019-09-24] MEDS: ALBUTEROL SULFATE 0.083% NEB 2.5 MG/3 ML AMPUL NEB SCH ×3 (08:57→20:16)
[2019-09-24] MEDS: ROPINIROLE HCL 2 MG TABLET PO SCH (10:38)
[2019-09-24] MEDS: BACLOFEN 10 MG TABLET PO SCH ×2 (10:38→22:17)
[2019-09-24] MEDS: CITALOPRAM HYDROBROMIDE 20 MG TABLET PO SCH (10:39)
[2019-09-24] MEDS: CARVEDILOL 3.125 MG TABLET PO SCH ×2 (10:39→22:17)
[2019-09-24] MEDS: FLUTICASONE/VILANTEROL 200-25 MCG/DOSE IH SCH (10:39)
[2019-09-24] MEDS: FUROSEMIDE 40 MG TABLET PO SCH (10:39)
[2019-09-24] MEDS: PREDNISONE 20 MG TABLET PO SCH (10:39)
[2019-09-24] MEDS: FLUTICASONE NASAL SPRAY 50 MCG/SPRY 120 SPRAY/16 GM NASL SCH (10:42)
[2019-09-24] MEDS: DOXEPIN HCL 10 MG CAPSULE PO SCH (22:17)
[2019-09-24] MEDS: ATORVASTATIN CALCIUM 40 MG TABLET PO SCH (22:17)
[2019-09-25] MEDS: INSULIN LISPRO 100 UNIT/ML 3 ML VIAL SUBCUT SCH ×5 (00:25→23:59)
[2019-09-25] MEDS: LEVOTHYROXINE SODIUM 0.05 MG TABLET PO SCH (06:17)
[2019-09-25] MEDS: HEPARIN SOD (PORCINE) 5,000 UNIT/ML 1 ML VIAL SUBCUT SCH ×3 (06:18→21:41)
[2019-09-25] MEDS: ALBUTEROL SULFATE 0.083% NEB 2.5 MG/3 ML AMPUL NEB SCH ×3 (08:15→20:40)
[2019-09-25 08:24] LABS: HEMOGLOBIN 13.2 g/dL (12.0-15.5); MEAN CORPUSCULAR HEMOGLOBIN 27.6 pg (27.0-33.4); MEAN CORPUSCULAR HGB CONC 32.1 g/dL (32.0-36.0); MEAN CORPUSCULAR VOLUME 86 fl (80-97); PLATELET COUNT 510 10^3/uL (150-450); RED BLOOD COUNT 4.78 10^6/uL (3.72-5.28); RED CELL DISTRIBUTION WIDTH 16.5 % (11.5-14.0); WHITE BLOOD COUNT 26.2 10^3/uL (4.0-10.5)
[2019-09-25 08:41] LABS: ANION GAP 8 (5-19); BLOOD UREA NITROGEN 30 mg/dL (7-20); CALCIUM 9.2 mg/dL (8.4-10.2); CARBON DIOXIDE 35 mmol/L (22-30); CHLORIDE 89 mmol/L (98-107); GLUCOSE 83 mg/dL (75-110); POTASSIUM 3.7 mmol/L (3.6-5.0)
[2019-09-25 09:00] LABS: ABSOLUTE LYMPHOCYTES# (MANUAL) 1.8 10^3/uL (0.5-4.7); ABSOLUTE MONOCYTES # (MANUAL) 3.7 10^3/uL (0.1-1.4); BAND NEUTROPHILS % (MANUAL) 1 % (3-5); BASOPHILS % (MANUAL) 0 % (0-2); EOSINOPHILS % (MANUAL) 0 % (0-6); LYMPHOCYTES % (MANUAL) 7 % (13-45); MONOCYTES % (MANUAL) 14 % (3-13); SEGMENTED NEUTROPHILS % (MAN) 78 % (42-78); TOTAL CELLS COUNTED 100
[2019-09-25 09:01] LABS: ANISOCYTOSIS 1+; HYPOCHROMASIA SLIGHT; PLATELET COMMENT INCREASED; TEAR DROP CELLS SLIGHT; TOXIC VACUOLATION PRESENT
[2019-09-25 09:02] LABS: POIKILOCYTOSIS SLIGHT
[2019-09-25] MEDS: PREDNISONE 20 MG TABLET PO SCH (10:06)
[2019-09-25] MEDS: CITALOPRAM HYDROBROMIDE 20 MG TABLET PO SCH (10:06)
[2019-09-25] MEDS: CARVEDILOL 3.125 MG TABLET PO SCH ×2 (10:06→21:41)
[2019-09-25] MEDS: FUROSEMIDE 40 MG TABLET PO SCH (10:06)
[2019-09-25] MEDS: FLUTICASONE/VILANTEROL 200-25 MCG/DOSE IH SCH (10:07)
[2019-09-25] MEDS: FLUTICASONE NASAL SPRAY 50 MCG/SPRY 120 SPRAY/16 GM NASL SCH (10:07)
[2019-09-25] MEDS: BACLOFEN 10 MG TABLET PO SCH ×2 (10:07→21:40)
[2019-09-25] MEDS: ROPINIROLE HCL 2 MG TABLET PO SCH (10:10)
[2019-09-25] MEDS: POTASSI CL 20 MEQ/D5-1/2NS 1L 1,000 ML IV PRN (13:35)
--- NOTE | 2019-09-25 15:23 | PDOC PROGRESS REPORT ---
Subjective Progress Note for:: 09/25/19 Subjective:: No adverse events overnight. She is remained stable on 2 to 3 L per nasal cannula. She likes to take the oxygen off for no apparent reason. She is not eating anything. She denies wanting any food. She has a very strange affect. Reason For Visit: AECOPD,ACUTE ON CHRONIC RESPIRATORY FAILURE Physical Exam Vital Signs: Temp Pulse Resp BP Pulse Ox 97.8 F 102 H 18 160/97 H 94 09/25/19 12:00 09/25/19 14:24 09/25/19 14:24 09/25/19 12:00 09/25/19 14:24 Intake & Output 09/24/19 09/25/19 09/26/19 06:59 06:59 06:59 Intake Total 1220 120 Output Total 1675 1400 Balance -455 -1280 Weight 62.8 kg 62.8 kg 62.8 kg General appearance: PRESENT: no acute distress, cooperative, disheveled Respiratory exam: PRESENT: prolonged expiratory phas, rhonchi, symmetrical, unlabored. ABSENT: accessory muscle use, chest wall tenderness, crackles, tachypnea, wheezes Cardiovascular exam: PRESENT: RRR, +S1, +S2 Pulses: PRESENT: normal carotid pulses Vascular exam: PRESENT: normal capillary refill GI/Abdominal exam: PRESENT: normal bowel sounds, soft. ABSENT: distended, guarding, rebound, tenderness Extremities exam: ABSENT: pedal edema Neurological exam: PRESENT: awake, oriented to person, oriented to place Psychiatric exam: PRESENT: flat affect Skin exam: PRESENT: dry, warm, other - Generally dusky Results Laboratory Results: 09/25/19 06:57 09/25/19 06:57 09/25/19 09/25/19 06:57 06:57 WBC 26.2 H RBC 4.78 Hgb 13.2 Hct 41.0 MCV 86 MCH 27.6 MCHC 32.1 RDW 16.5 H Plt Count 510 H Seg Neutrophils % Not Reportable Sodium 131.8 L Potassium 3.7 Chloride 89 L Carbon Dioxide 35 H Anion Gap 8 BUN 30 H Creatinine 0.67 Est GFR ( Amer) > 60 Glucose 83 Calcium 9.2 09/21/19 23:25 Troponin I 0.067 NT-Pro-B Natriuret Pep 860 H Impressions: Chest X-Ray 09/22/19 01:20 IMPRESSION: Satisfactory placement of supportive appliances. Assessment and Plan - Diagnosis (1) Acute on chronic respiratory failure with hypoxia and hypercapnia Is this a current diagnosis for this admission?: Yes Plan: Resolved. She had a COPD exacerbation. Also, at home she apparently will turn her oxygen up for no apparent reason even though she does not need to. (2) Leukocytosis Qualifiers: Leukocytosis type: leukemoid reaction Qualified Code(s): D72.823 - Leukemoid reaction Is this a current diagnosis for this admission?: Yes Plan: At this point I think it is mostly due to her steroids (3) Bipolar disorder with depression Is this a current diagnosis for this admission?: Yes Plan: We got her on her home medications. She is not eating. We have encouraged her to do so. I had to put her on a little bit of fluids with some glucose just if her blood sugar would not drop. (4) CHF (congestive heart failure) Qualifiers: Heart failure type: diastolic Heart failure chronicity: chronic Qualified Code(s): I50.32 - Chronic diastolic (congestive) heart failure Is this a current diagnosis for this admission?: Yes Plan: Not acutely exacerbated at this time. On her last echocardiogram she had grade 1 diastolic dysfunction. EF was preserved. (5) COPD with acute exacerbation Is this a current diagnosis for this admission?: Yes Plan: Improving on prednisone and bronchodilators (6) COVID-19 ruled out by laboratory testing Is this a current diagnosis for this admission?: Yes (7) HLD (hyperlipidemia) Qualifiers: Hyperlipidemia type: unspecified Qualified Code(s): E78.5 - Hyperlipidemia, unspecified Is this a current diagnosis for this admission?: Yes Plan: Continue Crestor (8) HTN (hypertension) Qualifiers: Hypertension type: essential hypertension Qualified Code(s): I10 - Essential (primary) hypertension Is this a current diagnosis for this admission?: Yes Plan: We have resumed some of her home medications. Her regimen may need further adjustment. (9) Tobacco abuse disorder Is this a current diagnosis for this admission?: Yes Plan: Strongly recommended cessation - Time Time Spent with patient: 25-34 minutes
[2019-09-25] MEDS: IPRATROPIUM/ALBUTEROL 0.5-2.5 MG/3 ML AMPUL NEB PRN (16:04)
[2019-09-25] MEDS: ALBUTEROL SULFATE HFA (90 MCG/PUFF) 200 PUFF/8.5 GM MDI IH PRN (20:28)
[2019-09-25] MEDS: ATORVASTATIN CALCIUM 40 MG TABLET PO SCH (21:39)
[2019-09-25] MEDS: DOXEPIN HCL 10 MG CAPSULE PO SCH (21:41)
[2019-09-26] MEDS: ALBUTEROL SULFATE HFA (90 MCG/PUFF) 200 PUFF/8.5 GM MDI IH PRN (02:42)
[2019-09-26] MEDS: IPRATROPIUM/ALBUTEROL 0.5-2.5 MG/3 ML AMPUL NEB PRN (03:30)
[2019-09-26] MEDS: LEVOTHYROXINE SODIUM 0.05 MG TABLET PO SCH (06:09)
[2019-09-26] MEDS: HEPARIN SOD (PORCINE) 5,000 UNIT/ML 1 ML VIAL SUBCUT SCH ×3 (06:09→21:41)
[2019-09-26] MEDS: INSULIN LISPRO 100 UNIT/ML 3 ML VIAL SUBCUT SCH ×4 (06:27→23:49)
[2019-09-26] MEDS: POTASSI CL 20 MEQ/D5-1/2NS 1L 1,000 ML IV PRN (08:34)
[2019-09-26] MEDS: FUROSEMIDE 40 MG TABLET PO SCH (08:45)
[2019-09-26] MEDS: ALBUTEROL SULFATE 0.083% NEB 2.5 MG/3 ML AMPUL NEB SCH ×3 (08:47→19:55)
[2019-09-26] MEDS: CARVEDILOL 3.125 MG TABLET PO SCH ×2 (12:34→21:41)
[2019-09-26] MEDS: PREDNISONE 20 MG TABLET PO SCH (12:34)
[2019-09-26] MEDS: CITALOPRAM HYDROBROMIDE 20 MG TABLET PO SCH (12:34)
[2019-09-26] MEDS: AMLODIPINE BESYLATE 5 MG TABLET PO SCH (12:35)
[2019-09-26] MEDS: BACLOFEN 10 MG TABLET PO SCH ×2 (12:35→21:40)
[2019-09-26] MEDS: ROPINIROLE HCL 2 MG TABLET PO SCH (14:08)
[2019-09-26] MEDS: BUPRENORPHINE HCL 2 MG SUBLINGUAL TABLET SL SCH (14:08)
[2019-09-26] MEDS: FLUTICASONE NASAL SPRAY 50 MCG/SPRY 120 SPRAY/16 GM NASL SCH (14:09)
[2019-09-26] MEDS: FLUTICASONE/VILANTEROL 200-25 MCG/DOSE IH SCH (14:09)
--- NOTE | 2019-09-26 16:24 | PDOC PROGRESS REPORT ---
Subjective Progress Note for:: 09/26/19 Subjective:: No adverse events overnight. No new complaints. She is eating better today. She is more alert and interactive. She walked 60 feet with a walker for physical therapy but got short of breath and was a little unsteady on her feet. Reason For Visit: AECOPD,ACUTE ON CHRONIC RESPIRATORY FAILURE Physical Exam Vital Signs: Temp Pulse Resp BP Pulse Ox 98.1 F 91 16 119/67 89 L 09/26/19 11:02 09/26/19 13:52 09/26/19 13:52 09/26/19 11:02 09/26/19 13:52 Intake & Output 09/25/19 09/26/19 09/27/19 06:59 06:59 06:59 Intake Total 154 127 8011 Output Total 1400 Balance -3583 771 1739 Weight 62.8 kg 62.7 kg General appearance: PRESENT: no acute distress, cooperative, disheveled Respiratory exam: PRESENT: Mildly prolonged expiratory phas, faint rhonchi, symmetrical, unlabored. ABSENT: accessory muscle use, chest wall tenderness, crackles, tachypnea, wheezes Cardiovascular exam: PRESENT: RRR, +S1, +S2 Pulses: PRESENT: normal carotid pulses Vascular exam: PRESENT: normal capillary refill GI/Abdominal exam: PRESENT: normal bowel sounds, soft. ABSENT: distended, guarding, rebound, tenderness Extremities exam: ABSENT: pedal edema Neurological exam: PRESENT: awake, oriented to person, oriented to place Psychiatric exam: PRESENT: flat affect Skin exam: PRESENT: dry, warm, other - Generally dusky Results Laboratory Results: 09/25/19 06:57 09/25/19 06:57 09/21/19 23:25 Troponin I 0.067 NT-Pro-B Natriuret Pep 860 H Impressions: Chest X-Ray 09/22/19 01:20 IMPRESSION: Satisfactory placement of supportive appliances. Assessment and Plan - Diagnosis (1) Acute on chronic respiratory failure with hypoxia and hypercapnia Is this a current diagnosis for this admission?: Yes Plan: Resolved. She had a COPD exacerbation. Also, at home she apparently will turn her oxygen up for no apparent reason even though she does not need to. (2) Leukocytosis Qualifiers: Leukocytosis type: leukemoid reaction Qualified Code(s): D72.823 - Leukemoid reaction Is this a current diagnosis for this admission?: Yes Plan: At this point I think it is mostly due to her steroids (3) Bipolar disorder with depression Is this a current diagnosis for this admission?: Yes Plan: We got her on her home medications. She is eating now so I am going to stop her fluids with glucose. (4) CHF (congestive heart failure) Qualifiers: Heart failure type: diastolic Heart failure chronicity: chronic Qualified Code(s): I50.32 - Chronic diastolic (congestive) heart failure Is this a current diagnosis for this admission?: Yes Plan: Not acutely exacerbated at this time. On her last echocardiogram she had grade 1 diastolic dysfunction. EF was preserved. (5) COPD with acute exacerbation Is this a current diagnosis for this admission?: Yes Plan: Improving on prednisone and bronchodilators (6) COVID-19 ruled out by laboratory testing Is this a current diagnosis for this admission?: Yes (7) HLD (hyperlipidemia) Qualifiers: Hyperlipidemia type: unspecified Qualified Code(s): E78.5 - Hyperlipidemia, unspecified Is this a current diagnosis for this admission?: Yes Plan: Continue Crestor (8) HTN (hypertension) Qualifiers: Hypertension type: essential hypertension Qualified Code(s): I10 - Essential (primary) hypertension Is this a current diagnosis for this admission?: Yes Plan: We have resumed some of her home medications. Her regimen may need further adjustment. (9) Tobacco abuse disorder Is this a current diagnosis for this admission?: Yes Plan: Strongly recommended cessation - Time Time Spent with patient: 25-34 minutes
[2019-09-26] MEDS: DOXEPIN HCL 10 MG CAPSULE PO SCH (21:40)
[2019-09-26] MEDS: ATORVASTATIN CALCIUM 40 MG TABLET PO SCH (21:41)
[2019-09-27] MEDS: LEVOTHYROXINE SODIUM 0.05 MG TABLET PO SCH (06:00)
[2019-09-27] MEDS: HEPARIN SOD (PORCINE) 5,000 UNIT/ML 1 ML VIAL SUBCUT SCH (06:00)
[2019-09-27] MEDS: INSULIN LISPRO 100 UNIT/ML 3 ML VIAL SUBCUT SCH ×2 (06:04→11:17)
[2019-09-27] MEDS: IPRATROPIUM/ALBUTEROL 0.5-2.5 MG/3 ML AMPUL NEB PRN (07:55)
[2019-09-27] MEDS: ALBUTEROL SULFATE 0.083% NEB 2.5 MG/3 ML AMPUL NEB SCH ×2 (07:58→13:51)
[2019-09-27] MEDS: FUROSEMIDE 40 MG TABLET PO SCH (08:34)
[2019-09-27] MEDS: AMLODIPINE BESYLATE 5 MG TABLET PO SCH (09:30)
[2019-09-27] MEDS: BUPRENORPHINE HCL 2 MG SUBLINGUAL TABLET SL SCH (09:30)
[2019-09-27] MEDS: CARVEDILOL 3.125 MG TABLET PO SCH (09:31)
[2019-09-27] MEDS: BACLOFEN 10 MG TABLET PO SCH (09:31)
[2019-09-27] MEDS: PREDNISONE 20 MG TABLET PO SCH (09:31)
[2019-09-27] MEDS: CITALOPRAM HYDROBROMIDE 20 MG TABLET PO SCH (09:31)
[2019-09-27] MEDS: ROPINIROLE HCL 2 MG TABLET PO SCH (09:31)
[2019-09-27] MEDS: FLUTICASONE/VILANTEROL 200-25 MCG/DOSE IH SCH (09:36)
[2019-09-27] MEDS: FLUTICASONE NASAL SPRAY 50 MCG/SPRY 120 SPRAY/16 GM NASL SCH (09:37)
[2019-09-27 12:25] VITALS: BP 104/69
--- NOTE | 2019-09-27 13:44 | PDOC DISCHARGE SUMMARY ---
Impression - Admit/DC Date/PCP Admission Date/Primary Care Provider: 09/22/19 02:33 OCTAVIO MOLINA Discharge Date: 09/27/19 - Discharge Diagnosis (1) Acute on chronic respiratory failure with hypoxia and hypercapnia Is this a current diagnosis for this admission?: Yes (2) Leukocytosis Is this a current diagnosis for this admission?: Yes (3) Bipolar disorder with depression Is this a current diagnosis for this admission?: Yes (4) CHF (congestive heart failure) Is this a current diagnosis for this admission?: Yes (5) COPD with acute exacerbation Is this a current diagnosis for this admission?: Yes (6) COVID-19 ruled out by laboratory testing Is this a current diagnosis for this admission?: Yes (7) HLD (hyperlipidemia) Is this a current diagnosis for this admission?: Yes (8) HTN (hypertension) Is this a current diagnosis for this admission?: Yes (9) Tobacco abuse disorder Is this a current diagnosis for this admission?: Yes - Additional Information Resuscitation Status: Full Code Discharge Diet: Cardiac Discharge Activity: Balance Activity w/Rest, Supervised Activity Referrals: SAMAN HOLLOWAY MD [PEDIATRICS] - Prescriptions: Prednisone [Deltasone 20 mg Tablet] 40 mg PO DAILY #10 tablet Home Medications: Baclofen [Baclofen 10 mg Tablet] 5 mg PO Q12 01/20/18 Buprenorphine HCl/Naloxone HCl [Suboxone 8 mg-2 mg Sl Film] 2.5 film SL DAILY MDD 3 FILMS 01/20/18 Ipratropium/Albuterol Sulfate [Combivent Respimat 4 gm Mdi] 1 puff IH Q6HP PRN MDD 6 PUFFS 05/03/18 Levothyroxine Sodium [Synthroid 0.05 mg Tablet] 50 mcg PO Q6AM 05/03/18 Ropinirole HCl [Requip 2 mg Tablet] 2 mg PO DAILY 05/03/18 Albuterol Sulfate [Ventolin Hfa 8 gm Mdi] 2 puff IH Q4HP PRN 08/20/19 Amlodipine Besylate [Norvasc 5 mg Tablet] 5 mg PO DAILY 08/20/19 Atorvastatin Calcium [Lipitor 40 mg Tablet] 40 mg PO QHS 08/20/19 Carvedilol [Coreg 3.125 mg Tablet] 3.125 mg PO Q12 08/20/19 Citalopram Hydrobromide [Celexa 20 mg Tablet] 20 mg PO DAILY 08/20/19 Doxepin HCl [Sinequan 10 mg Capsule] 20 mg PO QHS 08/20/19 Fluticasone Propionate [Flonase Nasal [place] 50 Mcg/[place] 16 gm] 1 spray NASL DAILY 08/20/19 Furosemide [Lasix 40 mg Tablet] 40 mg PO QAM 08/20/19 Albuterol Sulfate [Ventolin 0.083% Neb 2.5 mg/3 mL Ampul] 3 ml NEB RTTID 09/22/19 Budesonide/Formoterol Fumarate [Symbicort HFA 160-4.5 mcg Inhaler 6 gm] 2 puff IH BID 09/22/19 Ipratropium/Albuterol Sulfate [Combivent Respimat 4 gm Mdi] 1 puff IH QID 09/22/19 Nystatin [Mycostatin 500,000 Unit/5 ml Susp Udcup] 5 ml PO QIDP PRN 09/22/19 Prednisone [Deltasone 20 mg Tablet] 40 mg PO DAILY #10 tablet 09/27/19 History of Present Illiness History of Present Illness: PIEDAD GILES is a 64 year old female with a history of DM, HTN, CAD, bipolar disorder, COPD and CHF requiring multiple admissions to the intensive care unit. Patient called EMS due to chest pain and dyspnea. Upon arrival, EMS found patient to be obtunded and she was subsequently intubated. Upon arrival to the ED, she was hypotensive and a right IJ TLC was placed for vasoactive medication administration. Emergency room MD consulted critical care for admission and management of this patient's respiratory failure. Hospital Course Hospital Course: She was intubated for 3 days and despite her advanced lung disease was successfully extubated. She remained encephalopathic for a day or so but after getting her back on her usual medications and getting her to eat a couple of meals her mental status returned to baseline. She responded well to steroids. She will complete a course of prednisone at home. Her comorbid conditions were managed with her home medications and were not exacerbated during this hospitalization, with the obvious exception of her COPD. She says she normally gets around with a walker at home and we had physical therapy evaluate her. She was very unsteady on her feet but she managed to make it 60 feet with a walker. I offered to see if I could get her a bed at a nursing home facility for rehab but she adamantly declined. She said she wanted to go home and so we set her up with home health. Her labs and examination were reassuring and she was discharged in stable condition. Physical Exam Vital Signs: Temp Pulse Resp BP Pulse Ox 98.5 F 86 20 104/69 92 09/27/19 12:28 09/27/19 12:28 09/27/19 12:28 09/27/19 12:28 09/27/19 12:28 Intake & Output 09/26/19 09/27/19 09/28/19 06:59 06:59 06:59 Intake Total 170 1469 120 Balance 170 1469 120 Weight 62.7 kg 62.7 kg General appearance: PRESENT: no acute distress, cooperative, disheveled Respiratory exam: PRESENT: Mildly prolonged expiratory phas, faint rhonchi, symmetrical, unlabored. ABSENT: accessory muscle use, chest wall tenderness, crackles, tachypnea, wheezes Cardiovascular exam: PRESENT: RRR, +S1, +S2 Pulses: PRESENT: normal carotid pulses Vascular exam: PRESENT: normal capillary refill GI/Abdominal exam: PRESENT: normal bowel sounds, soft. ABSENT: distended, guarding, rebound, tenderness Extremities exam: ABSENT: pedal edema Neurological exam: PRESENT: awake, oriented to person, oriented to place Psychiatric exam: PRESENT: flat affect Skin exam: PRESENT: dry, warm, other - Generally dusky Results Laboratory Results: WBC 26.2 10^3/uL (4.0-10.5) H 09/25/19 06:57 RBC 4.78 10^6/uL (3.72-5.28) 09/25/19 06:57 Hgb 13.2 g/dL (12.0-15.5) 09/25/19 06:57 Hct 41.0 % (36.0-47.0) 09/25/19 06:57 MCV 86 fl (80-97) 09/25/19 06:57 MCH 27.6 pg (27.0-33.4) 09/25/19 06:57 MCHC 32.1 g/dL (32.0-36.0) 09/25/19 06:57 RDW 16.5 % (11.5-14.0) H 09/25/19 06:57 Plt Count 510 10^3/uL (150-450) H 09/25/19 06:57 Lymph % (Auto) Not Reportable 09/25/19 06:57 [place] % (Auto) Not Reportable 09/25/19 06:57 Eos % (Auto) Not Reportable 09/25/19 06:57 Baso % (Auto) Not Reportable 09/25/19 06:57 Absolute Neuts (auto) Not Reportable 09/25/19 06:57 Absolute Lymphs (auto) Not Reportable 09/25/19 06:57 Absolute Monos (auto) Not Reportable 09/25/19 06:57 Absolute Eos (auto) Not Reportable 09/25/19 06:57 Absolute Basos (auto) Not Reportable 09/25/19 06:57 Total Counted 100 09/25/19 06:57 Seg Neutrophils % Not Reportable 09/25/19 06:57 Seg Neuts % (Manual) 78 % (42-78) 09/25/19 06:57 Band Neutrophils % 1 % (3-5) L 09/25/19 06:57 Lymphocytes % (Manual) 7 % (13-45) L 09/25/19 06:57 Monocytes % (Manual) 14 % (3-13) H 09/25/19 06:57 Eosinophils % (Manual) 0 % (0-6) 09/25/19 06:57 Basophils % (Manual) 0 % (0-2) 09/25/19 06:57 Abs Neuts (Manual) 20.7 10^3/uL (1.7-8.2) H 09/25/19 06:57 Abs Lymphs (Manual) 1.8 10^3/uL (0.5-4.7) 09/25/19 06:57 Abs Monocytes (Manual) 3.7 10^3/uL (0.1-1.4) H 09/25/19 06:57 Absolute Eos (Manual) 0.0 10^3/uL (0.0-0.6) 09/25/19 06:57 Abs Basophils (Manual) 0.0 10^3/uL (0.0-0.2) 09/25/19 06:57 Toxic Granulation SLIGHT 09/24/19 05:10 Toxic Vacuolation PRESENT 09/25/19 06:57 Platelet Comment INCREASED 09/25/19 06:57 Polychromasia 1+ 09/21/19 23:25 Hypochromasia SLIGHT 09/25/19 06:57 Poikilocytosis SLIGHT 09/25/19 06:57 Anisocytosis 1+ 09/25/19 06:57 Tear Drop Cells SLIGHT 09/25/19 06:57 Ovalocytes SLIGHT 09/24/19 05:10 Schistocytes SLIGHT 09/24/19 05:10 Carbonic Acid 1.43 mmol/L (1.05-1.35) H 09/23/19 20:50 HCO3/H2CO3 Ratio 20:1 09/23/19 20:50 ABG pH 7.41 (7.35-7.45) 09/23/19 20:50 ABG pCO2 47.4 mmHg (35-45) H 09/23/19 20:50 ABG pO2 75.5 mmHg (80-100) L 09/23/19 20:50 ABG HCO3 29.1 mmol/L (20-24) H 09/23/19 20:50 ABG Total CO2 30.6 mmol/L (21-25) H 09/23/19 20:50 ABG O2 Saturation 95.1 % (94-98) 09/23/19 20:50 ABG Base Excess 3.7 mmol/L 09/23/19 20:50 FiO2 40% 09/23/19 20:50 Sodium 131.8 mmol/L (137-145) L 09/25/19 06:57 Potassium 3.7 mmol/L (3.6-5.0) 09/25/19 06:57 Chloride 89 mmol/L (98-107) L 09/25/19 06:57 Carbon Dioxide 35 mmol/L (22-30) H 09/25/19 06:57 Anion Gap 8 (5-19) 09/25/19 06:57 BUN 30 mg/dL (7-20) H 09/25/19 06:57 Creatinine 0.67 mg/dL (0.52-1.25) 09/25/19 06:57 Est GFR ( Amer) > 60 (>60) 09/25/19 06:57 Est GFR (MDRD) Non-Af > 60 (>60) 09/25/19 06:57 Glucose 83 mg/dL (75-110) 09/25/19 06:57 POC Glucose 110 mg/dL (70-110) 09/27/19 11:04 Lactic Acid 1.0 mmol/L (0.7-2.1) 09/22/19 02:44 Calcium 9.2 mg/dL (8.4-10.2) 09/25/19 06:57 Total Bilirubin 0.4 mg/dL (0.2-1.3) 09/21/19 23:25 Direct Bilirubin 0.1 mg/dL (0.0-0.4) 09/21/19 23:25 Neonat Total Bilirubin Not Reportable 09/21/19 23:25 Neonat Direct Bilirubin Not Reportable 09/21/19 23:25 Neonat Indirect Bili Not Reportable 09/21/19 23:25 AST 28 U/L (14-36) 09/21/19 23:25 ALT 13 U/L (<35) 09/21/19 23:25 Alkaline Phosphatase 78 U/L (38-126) 09/21/19 23:25 Troponin I 0.067 ng/mL 09/21/19 23:25 NT-Pro-B Natriuret Pep 860 pg/mL (<125) H 09/21/19 23:25 Total Protein 6.8 g/dL (6.3-8.2) 09/21/19 23:25 Albumin 3.3 g/dL (3.5-5.0) L 09/21/19 23:25 Triglycerides 62 mg/dL (<150) 09/22/19 06:43 Urine Color YELLOW 09/21/19 23:34 Urine Appearance CLEAR 09/21/19 23:34 Urine pH 6.0 (5.0-9.0) 09/21/19 23:34 Ur Specific [place] 1.015 09/21/19 23:34 Urine Protein NEGATIVE mg/dL (NEGATIVE) 09/21/19 23:34 Urine Glucose (UA) NEGATIVE mg/dL (NEGATIVE) 09/21/19 23:34 Urine Ketones NEGATIVE mg/dL (NEGATIVE) 09/21/19 23:34 Urine Blood NEGATIVE (NEGATIVE) 09/21/19 23:34 Urine Nitrite (Reflex) NEGATIVE (NEGATIVE) 09/21/19 23:34 Urine Bilirubin NEGATIVE (NEGATIVE) 09/21/19 23:34 Urine Urobilinogen NEGATIVE mg/dL (<2.0) 09/21/19 23:34 Leukocyte Esterase Rfl NEGATIVE (NEGATIVE) 09/21/19 23:34 Urine RBC (Auto) 2 /HPF 09/21/19 23:34 U Hyaline Cast (Auto) 4 /LPF 09/21/19 23:34 Urine WBC (Reflex) 1 /HPF 09/21/19 23:34 Urine Mucus (Auto) RARE /LPF 09/21/19 23:34 Urine Ascorbic Acid NEGATIVE (NEGATIVE) 09/21/19 23:34 COVID-19 Source NASOPHARYNGEAL 09/22/19 01:40 COVID-19 (LINDA) NOT DETECTED 09/22/19 01:40 09/21/19 23:25 Troponin I 0.067 NT-Pro-B Natriuret Pep 860 H Impressions: Chest X-Ray 09/22/19 01:20 IMPRESSION: Satisfactory placement of supportive appliances. Plan Time Spent: Greater than 30 Minutes Stroke Is this a Stroke Patient?: No Acute Heart Failure - Is this a Heart Failure Patient?: No
== END 2019-09-27 14:45 | disposition home health service (06) | DRG 208 ==
LOC: ER 23:09 → EH 09-22 02:33 → ICU 09-22 04:54 → 5 09-24 16:17 → 4W 09-25 14:09
PROVIDERS: ADMIT Anesthesiology; ATTEND Family Medicine
PROC: 5A1945Z Respiratory Ventilation, 24-96 Consecutive Hours (ICD-10-PCS; principal; 2019-09-22)
PROC: 05HY33Z Insertion of Infusion Device into Upper Vein, Percutaneous Approach (ICD-10-PCS; 2019-09-22)
DX: J96.22 Acute and chronic respiratory failure with hypercapnia (principal); J44.1 Chronic obstructive pulmonary disease with (acute) exacerbation; I50.32 Chronic diastolic (congestive) heart failure; J96.21 Acute and chronic respiratory failure with hypoxia; I25.10 Atherosclerotic heart disease of native coronary artery without angina pectoris; E03.9 Hypothyroidism, unspecified; E11.9 Type 2 diabetes mellitus without complications; G89.4 Chronic pain syndrome; G25.81 Restless legs syndrome; D72.823 Leukemoid reaction; M79.7 Fibromyalgia; F31.9 Bipolar disorder, unspecified; F17.210 Nicotine dependence, cigarettes, uncomplicated; I25.2 Old myocardial infarction; Z03.818 Encounter for observation for suspected exposure to other biological agents ruled out; Z79.2 Long term (current) use of antibiotics; Z79.51 Long term (current) use of inhaled steroids; Z79.52 Long term (current) use of systemic steroids; Z79.899 Other long term (current) drug therapy
CPT/HCPCS: 36415; 36600; 51702; 71045; 80048; 80053; 81001; 82803; 82962; 83605; 83880; 84478; 84484; 85025; 87040; 87635; 93005; 93010; 94002; 94003; 96361; 96365; 96375; 99221; 99291; 99292; C9803; J0571; J0692; J1642; J1644; J1815; J2060; J2250; J2543; J2704; J2920; J2930; J3480; J3490; J7030; J7120; J7512; J7620; S0028

== ENCOUNTER 2019-10-26 11:22 | Inpatient (IN) | payer MEDICARE, MEDICAID ==
[2019-10-26] MEDS ORDERED: VECURONIUM BROMIDE INJ 10 MG VIAL IV ONE (11:29)
[2019-10-26] MEDS ORDERED: MIDAZOLAM HCL 50 MG/100 ML RTUINJ IV PRN (11:30)
[2019-10-26] MEDS ORDERED: NORMAL SALINE 500 ML IV ONE (11:36)
[2019-10-26] MEDS ORDERED: MIDAZOLAM 2 MG/2 ML INJ ONE (11:45)
[2019-10-26] MEDS ORDERED: MIDAZOLAM 2 MG/2 ML INJ IV ONE (11:51)
[2019-10-26 11:56] LABS: HEMATOCRIT 33.3 % (36.0-47.0); HEMOGLOBIN 10.8 g/dL (12.0-15.5); MEAN CORPUSCULAR HEMOGLOBIN 28.9 pg (27.0-33.4); MEAN CORPUSCULAR HGB CONC 32.4 g/dL (32.0-36.0); MEAN CORPUSCULAR VOLUME 89 fl (80-97); RED BLOOD COUNT 3.74 10^6/uL (3.72-5.28); RED CELL DISTRIBUTION WIDTH 19.2 % (11.5-14.0); WHITE BLOOD COUNT 29.5 10^3/uL (4.0-10.5)
[2019-10-26] MEDS ORDERED: CEFEPIME 1 GM/D5W RTU 1 GM/50 ML RTUPB IV ONE (12:01)
[2019-10-26] MEDS ORDERED: PANTOPRAZOLE SODIUM 40 MG VIAL IV ONE (12:01)
[2019-10-26 12:02] LABS: INTERNATIONAL RATION (INR) 0.95; PROTHROMBIN TIME 12.7 SEC (11.4-15.4)
[2019-10-26 12:03] LABS: PARTIAL THROMBOPLASTIN TIME 28.1 SEC (23.5-35.8)
[2019-10-26 12:08] LABS: ALBUMIN 3.6 g/dL (3.5-5.0); ALKALINE PHOSPHATASE 92 U/L (38-126); ANION GAP 7 (5-19); ASPARTATE AMINO TRANSFERASE 31 U/L (14-36); BILIRUBIN,DIRECT 0.1 mg/dL (0.0-0.4); BILIRUBIN,TOTAL 0.3 mg/dL (0.2-1.3); BLOOD UREA NITROGEN 23 mg/dL (7-20); CARBON DIOXIDE 37 mmol/L (22-30); CHLORIDE 91 mmol/L (98-107); CREATINE KINASE 182 U/L (30-135); GLUCOSE 126 mg/dL (75-110); POTASSIUM 4.4 mmol/L (3.6-5.0); TOTAL PROTEIN 7.4 g/dL (6.3-8.2)
[2019-10-26 12:19] LABS: CREATINE KINASE MB 3.23 ng/mL (<4.55); TROPONIN I 0.025 ng/mL
[2019-10-26 12:20] LABS: ABSOLUTE LYMPHOCYTES# (MANUAL) 1.5 10^3/uL (0.5-4.7); ABSOLUTE MONOCYTES # (MANUAL) 1.8 10^3/uL (0.1-1.4); BASOPHILS % (MANUAL) 0 % (0-2); EOSINOPHILS % (MANUAL) 0 % (0-6); LYMPHOCYTES % (MANUAL) 5 % (13-45); MONOCYTES % (MANUAL) 6 % (3-13); SEGMENTED NEUTROPHILS % (MAN) 89 % (42-78); TOTAL CELLS COUNTED 100
--- NOTE | 2019-10-26 12:20 | RADIOLOGY REPORT (SQ) ---
EXAM DESCRIPTION: CHEST SINGLE VIEW IMAGES COMPLETED DATE/TIME: 10/26/2019 11:53 am REASON FOR STUDY: bed 5 s/p intubation COMPARISON: 09/22/2019 TECHNIQUE: Single frontal radiographic view of the chest acquired. NUMBER OF VIEWS: One view. LIMITATIONS: None. FINDINGS: LUNGS AND PLEURA: No pneumothorax. No consolidation. Increased interstitial prominence an d small bilateral pleural effusions. MEDIASTINUM AND HILAR STRUCTURES: Stable. HEART AND VASCULAR STRUCTURES: Stable. BONES: No acute findings. HARDWARE: Endotracheal tube tip overlies the mid trachea, NG tube side port is above the GE junction approximately 2 cm. OTHER: No other significant finding. IMPRESSION: Endotracheal tube tip overlies the mid trachea, NG tube side port is above the GE juncti on approximately 2 cm. Increased interstitial prominence and small bilateral pleural effusions. TECHNICAL DOCUMENTATION: JOB ID: [id number] [place]-[id number] 2010 [employer]- All Rights Reserved Reading location - IP/workstation name: [email or web address]
[2019-10-26 12:21] LABS: ANISOCYTOSIS 2+; PLATELET COMMENT ADEQUATE; PLATELET COUNT 419 10^3/uL (150-450); POLYCHROMASIA SLIGHT
[2019-10-26] MEDS ORDERED: ACETAMINOPHEN 325 MG TABLET NG PRN (12:27)
[2019-10-26 12:30] LABS: APPEARANCE,URINE CLEAR; BILIRUBIN,URINE NEGATIVE (NEGATIVE); COLOR,URINE YELLOW; GLUCOSE, URINE NEGATIVE (NEGATIVE); KETONES,URINE NEGATIVE (NEGATIVE); PROTEIN,URINE NEGATIVE (NEGATIVE); URINE SPECIFIC GRAVITY 1.011; UROBILINOGEN,URINE NEGATIVE mg/dL (<2.0)
[2019-10-26] MEDS ORDERED: PHARMACY COMMUNICATION ORDER MC NR (12:30)
[2019-10-26 12:47] LABS: URINE AMPHETAMINES SCREEN NEGATIVE; URINE BARBITURATES SCREEN NEGATIVE; URINE BENZODIAZEPINES SCREEN NEGATIVE; URINE COCAINE SCREEN NEGATIVE; URINE MARIJUANA (THC) SCREEN NEGATIVE; URINE METHADONE SCREEN NEGATIVE; URINE PHENCYCLIDINE SCREEN NEGATIVE
[2019-10-26 13:40] LABS: ARTERIAL BLOOD BASE EXCESS 4.1 mmol/L; ARTERIAL BLOOD FIO2 60%; ARTERIAL BLOOD H2CO3 1.95 mmol/L (1.05-1.35); ARTERIAL BLOOD HCO3 31.8 mmol/L (20-24); ARTERIAL BLOOD O2 SATURATION 92.4 % (94-98); ARTERIAL BLOOD PCO2 64.9 mmHg (35-45); ARTERIAL BLOOD PH 7.31 (7.35-7.45); ARTERIAL BLOOD PO2 71.5 mmHg (80-100); ARTERIAL BLOOD TOTAL CO2 33.8 mmol/L (21-25)
--- NOTE | 2019-10-26 14:06 | EKG REPORT ---
SEVERITY:- ABNORMAL ECG - SINUS TACHYCARDIA RIGHT ATRIAL ABNORMALITY RIGHT AXIS DEVIATION : Confirmed by: Gael Wilkins MD 26-Oct-2019 14:05:11
--- NOTE | 2019-10-26 14:58 | CRITICAL CARE ADMISSION REPORT ---
HPI Date:: 10/26/19 Time:: 12:30 Reason for ICU Reason:: Intubated for COPD exacerbation Admission Date/Time & PCP: Admission Date/Time: 10/26/19 12:41 Primary Care Provider: OCTAVIO MOLINA HPI: This patient is a 64 yo woman with fairly frequent visits for COPD exacerbations and intubations. She had difficulty breathing at home. Was given a nebuliuzer but continued to get confused obtunded dropping her O2 saturations it was said into the 70s and was intubated in the field. She has some wheexing and rhochi in the ED. History obtained from:: Old records and Dr. Coyne. - Diagnosis/Plan (1) COPD with acute exacerbation Is this a current diagnosis for this admission?: Yes Plan: She has a long history of this. She is wheezing (2) Bipolar disorder Qualifiers: Active/Remission status: remission status unspecified Is this a current diagnosis for this admission?: Yes Plan: It is not known on versed if she is in remission. Will continue her usual meds. (3) CHF (congestive heart failure) Qualifiers: Heart failure type: diastolic Heart failure chronicity: unspecified Qualified Code(s): I50.30 - Unspecified diastolic (congestive) heart failure Is this a current diagnosis for this admission?: Yes Plan: She seems to have pulmonary HTN by clinical exam. Echocardiogram ordered. (4) HTN (hypertension) Qualifiers: Is this a current diagnosis for this admission?: Yes Plan: Controlled (5) Hx of congestive heart failure Is this a current diagnosis for this admission?: Yes Plan: Currently not active, continue Coreg. (6) Tobacco abuse disorder Is this a current diagnosis for this admission?: Yes Plan: Said to still be smoking by old records in September. If true this certainly is not helping her lungs. Plan Summary: She will need steroids and nebulizers. When not wheezing or rhochorous or tight plan to extubate. Past Medical History Cardiac Medical History: Reports: Congestive Heart Failure, Coronary Artery Disease, Myocardial Infarction, Hypertension Pulmonary Medical History: Reports: Chronic Obstructive Pulmonary Disease (COPD), Intubation, Pneumonia, Respiratory Failure Denies: Tuberculosis Neurological Medical History: Denies: Seizures Endocrine Medical History: Reports: Diabetes Mellitus Type 2, Hypothyroidism Musculoskeltal Medical History: Reports: Fibromyalgia Psychiatric Medical History: Reports: Bipolar Disorder, Depression Past Surgical History Past Surgical History: Reports: Appendectomy, Cardiac Catheterization, Section Denies: Pacemaker Social/Family History - Social History Smoking Status: Current Every Day Smoker Frequency of Alcohol Use: None Hx Recreational Drug Use: No Drugs: None Hx Prescription Drug Abuse: No - Medication/Allergies Home Medications: Baclofen [Baclofen 10 mg Tablet] 5 mg PO Q12 01/20/18 Buprenorphine HCl/Naloxone HCl [Suboxone 8 mg-2 mg Sl Film] 2.5 film SL DAILY MDD 3 FILMS 01/20/18 Ipratropium/Albuterol Sulfate [Combivent Respimat 4 gm Mdi] 1 puff IH Q6HP PRN MDD 6 PUFFS 05/03/18 Levothyroxine Sodium [Synthroid 0.05 mg Tablet] 50 mcg PO Q6AM 05/03/18 Ropinirole HCl [Requip 2 mg Tablet] 2 mg PO DAILY 05/03/18 Albuterol Sulfate [Ventolin Hfa 8 gm Mdi] 2 puff IH Q4HP PRN 08/20/19 Amlodipine Besylate [Norvasc 5 mg Tablet] 5 mg PO DAILY 08/20/19 Atorvastatin Calcium [Lipitor 40 mg Tablet] 40 mg PO QHS 08/20/19 Carvedilol [Coreg 3.125 mg Tablet] 3.125 mg PO Q12 08/20/19 Citalopram Hydrobromide [Celexa 20 mg Tablet] 20 mg PO DAILY 08/20/19 Doxepin HCl [Sinequan 10 mg Capsule] 20 mg PO QHS 08/20/19 Fluticasone Propionate [Flonase Nasal [place] 50 Mcg/[place] 16 gm] 1 spray NASL DAILY 08/20/19 Furosemide [Lasix 40 mg Tablet] 40 mg PO QAM 08/20/19 Albuterol Sulfate [Ventolin 0.083% Neb 2.5 mg/3 mL Ampul] 3 ml NEB RTTID 09/22/19 Budesonide/Formoterol Fumarate [Symbicort HFA 160-4.5 mcg Inhaler 6 gm] 2 puff IH BID 09/22/19 Ipratropium/Albuterol Sulfate [Combivent Respimat 4 gm Mdi] 1 puff IH QID 09/21 Nystatin [Mycostatin 500,000 Unit/5 ml Susp Udcup] 5 ml PO QIDP PRN 09/22/19 Prednisone [Deltasone 20 mg Tablet] 40 mg PO DAILY #10 tablet 09/27/19 Allergies/Adverse Reactions: zolpidem [From Ambien] Adverse Reaction (Verified 08/22/19 09:05) Review of Systems ROS unobtainable: Due to endotracheal tube, Due to mental status Physical Exam Vital Signs: Temp Pulse Resp BP Pulse Ox 16 101/51 L 98 10/26/19 12:55 10/26/19 14:20 10/26/19 14:01 Intake & Output 10/25/19 10/26/19 10/27/19 06:59 06:59 06:59 Intake Total 500 Balance 500 Weight 54.6 kg Weight/Height Weight 54.6 kg General appearance: PRESENT: no acute distress, thin Head exam: PRESENT: atraumatic, normocephalic Eye exam: PRESENT: conjunctiva pink, EOMI, PERRLA. ABSENT: scleral icterus Ear exam: PRESENT: normal external ear exam Mouth exam: PRESENT: moist, tongue midline Respiratory exam: PRESENT: decreased breath sounds, rhonchi, other - Increased AP diameter. Cardiovascular exam: PRESENT: RRR. ABSENT: diastolic murmur, rubs, systolic murmur GI/Abdominal exam: PRESENT: normal bowel sounds, soft. ABSENT: distended, guarding, mass, organolmegaly, rebound, tenderness Rectal exam: PRESENT: deferred Gentrourinary exam: PRESENT: indwelling catheter Extremities exam: PRESENT: full ROM. ABSENT: calf tenderness, clubbing, pedal edema Musculoskeletal exam: PRESENT: normal inspection Neurological exam: PRESENT: other - Sedated. Skin exam: PRESENT: dry, intact, warm. ABSENT: cyanosis, rash Tubes/Lines: PRESENT: Endotracheal Tube, Central Line, Nasogastic Tube Laboratory/Radiographs Laboratory Results: 10/26/19 11:30 10/26/19 11:30 10/26/19 10/26/19 10/26/19 11:30 11:30 11:30 WBC 29.5 H RBC 3.74 Hgb 10.8 L Hct 33.3 L MCV 89 MCH 28.9 MCHC 32.4 RDW 19.2 H Plt Count 419 Seg Neutrophils % Not Reportable Carbonic Acid HCO3/H2CO3 Ratio ABG pH ABG pCO2 ABG pO2 ABG HCO3 ABG O2 Saturation ABG Base Excess FiO2 Sodium 134.7 L Potassium 4.4 Chloride 91 L Carbon Dioxide 37 H Anion Gap 7 BUN 23 H Creatinine 0.80 Est GFR ( Amer) > 60 Glucose 126 H Lactic Acid 0.8 Calcium 9.0 Total Bilirubin 0.3 AST 31 Alkaline Phosphatase 92 Total Protein 7.4 Albumin 3.6 Urine Color Urine Appearance Urine pH Ur Specific [place] Urine Protein Urine Glucose (UA) Urine Ketones Urine Blood Urine RBC (Auto) 10/26/19 10/26/19 12:10 13:25 WBC RBC Hgb Hct MCV MCH MCHC RDW Plt Count Seg Neutrophils % Carbonic Acid 1.95 H HCO3/H2CO3 Ratio 16:1 ABG pH 7.31 L ABG pCO2 64.9 H ABG pO2 71.5 L ABG HCO3 31.8 H ABG O2 Saturation 92.4 L ABG Base Excess 4.1 FiO2 60% Sodium Potassium Chloride Carbon Dioxide Anion Gap BUN Creatinine Est GFR ( Amer) Glucose Lactic Acid Calcium Total Bilirubin AST Alkaline Phosphatase Total Protein Albumin Urine Color YELLOW Urine Appearance CLEAR Urine pH 6.0 Ur Specific [place] 1.011 Urine Protein NEGATIVE Urine Glucose (UA) NEGATIVE Urine Ketones NEGATIVE Urine Blood NEGATIVE Urine RBC (Auto) 2 10/26/19 10/26/19 11:30 11:30 Creatine Kinase 182 H CK-MB (CK-2) 3.23 Troponin I 0.025 NT-Pro-B Natriuret Pep 1500 H Impressions: Chest X-Ray 10/26/19 11:26 IMPRESSION: Endotracheal tube tip overlies the mid trachea, NG tube side port is above the GE junction approximately 2 cm. Increased interstitial prominence and small bilateral pleural effusions. EKG: ST and R axis deviation. All labs, radiographs, diagnostic studies and EKGs were personally reviewed: Yes In addition, reports of radiographic and diagnostic studies were read: Yes Critical Time Critical Time (minutes): 40 -: The care of a critically ill patient is dynamic. This note represents a static moment in the admission process. Orders and treatments may be given simultaneously and urgently, and time is not client service representative of the treatment process. This patient requires Critical Care secondary to life threatening organ or limb dysfunction. Without Critical Care services, the patient is at risk for increased mortality and morbidity.
--- NOTE | 2019-10-26 15:00 | ER Document Report ---
Entered by JAYJAY ONEAL SCRIBE 10/26/19 1137 Acting as scribe for:EAGLE CORRAL MD ED Respiratory Problem - General Chief Complaint: Breathing Difficulty Stated Complaint: DIFFICULTY BREATHING Time Seen by Provider: 10/26/19 11:29 Information source: Emergency Med Personnel Cannot obtain history due to: Intubated Notes: This 64 year old female patient presents to the emergency department with arrival by EMS. Patient was intubated upon arrival to the ED and medical history was provided by EMS personnel. Patient has had difficulty breathing the past x3 days, with it worsening today. When EMS arrived, patient had decreased breath sounds in bilateral lower lobes with wheezing, and rhonchi. Patient had initial low stats of 76% oxygen saturation on room air. A breathing treatment was administered, 125 mg of solu-medrol, and patient was placed on CPAP. Prior to arrival to the ED, patient became unresponsive and EMS personnel tried to resuscitate. Patient was intubated by EMS personnel en route without any complications. TRAVEL OUTSIDE OF THE [place] IN LAST 30 DAYS: No - Related Data Allergies/Adverse Reactions: zolpidem [From Ambien] Adverse Reaction (Verified 08/22/19 09:05) Past Medical History - General Information source: Emergency Med Personnel Cannot obtain history due to: Intubated - Social History Smoking Status: Unknown if Ever Smoked Family History: Reviewed & Not Pertinent - Past Medical History Cardiac Medical History: Reports: Hx Congestive Heart Failure, Hx Coronary A rtery Disease, Hx Heart Attack, Hx Hypertension Pulmonary Medical History: Reports: Hx COPD, Hx Pneumonia, Hx Intubation, Hx Respiratory Failure Endocrine Medical History: Reports: Hx Diabetes Mellitus Type 2, Hx Hypothyroidism Musculoskeletal Medical History: Reports Hx Fibromyalgia Psychiatric Medical History: Reports: Hx Bipolar Disorder, Hx Depression Past Surgical History: Reports: Hx Appendectomy, Hx Cardiac Catheterization, Hx Cardiac Surgery, Hx Section - Immunizations Hx Diphtheria, Pertussis, Tetanus Vaccination: Yes Hx Pneumococcal Vaccination: 04/16/09 Review of Systems - Review of Systems -: Yes ROS unobtainable due to patient's medical condition Physical Exam - Vital signs Vitals: BP Pulse Ox 112/77 98 10/26/19 11:25 10/26/19 11:25 - General Notes: Patient is afebrile. Patient was intubated upon arrival to ED. - HEENT Head: Normocephalic, Atraumatic Eyes: Normal Notes: Pupils reactive to light 2mm. - Respiratory Notes: Patient is intubated. Breath sounds are equal bilaterally. - Cardiovascular Rhythm: Regular Heart sounds: Normal auscultation Murmur: No - Abdominal Inspection: Other - Soft Distension: No distension Tenderness: Nontender - Extremities General upper extremity: Normal inspection. No: Edema General lower extremity: Normal inspection. No: Edema - Neurological Notes: Patient is sedated for et tube control. Patient is in an unconscious state. - Skin Skin Temperature: Warm Skin Moisture: Dry Skin Color: [place] Notes: No diaphoresis. Course - Re-evaluation Re-evalutation: 10/26/19 14:46 Patient presents via EMS and respiratory distress and was intubated prior to ar rival. Patient had received sedation for the intubation which was successful by the EMS team and patient was quite sedated on arrival with ET tube ventilation on arrival. 10/26/19 14:57 And stated patient presented already intubated by EMS and, and patient eventually began to awaken there for sedation and paralytics were first prescribed and administered. Also patient was placed on the ventilator SIMV of 14 total volume was 450 PEEP of 5 and a oxygen sat of 60%. 10/26/19 14:58 Dr. Ford was at bedside took over management of patient and patient was provided and central triple-lumen central line by Dr. Ford. - Vital Signs Vital signs: Temp Pulse Resp BP Pulse Ox 16 101/51 L 98 10/26/19 12:55 10/26/19 14:20 10/26/19 14:01 Vital signs are stable - Laboratory Result Diagrams: 10/26/19 11:30 10/26/19 11:30 Laboratory results interpreted by me: 10/26/19 10/26/19 10/26/19 11:30 11:30 11:30 WBC 29.5 H Hgb 10.8 L Hct 33.3 L RDW 19.2 H Seg Neuts % (Manual) 89 H Lymphocytes % (Manual) 5 L Abs Neuts (Manual) 26.3 H Abs Monocytes (Manual) 1.8 H Sodium 134.7 L Chloride 91 L Carbon Dioxide 37 H BUN 23 H Glucose 126 H Creatine Kinase 182 H NT-Pro-B Natriuret Pep 1500 H Laboratories show 29,000 white blood cell count of 1500. Patient also has a glucose of 126. Patient also has a carbon dioxide of 37 consistent with COPD and CO2 retention. White blood cell count elevations consistent with most likely - Diagnostic Test Radiology reviewed: Image reviewed, Reports reviewed Radiology results interpreted by me: 10/26/19 14:52 Chest x-ray shows ET tube in the mid trachea and the NG tube with the side-port above the GE junction. Otherwise no defined infiltrate and bilateral small pleural effusions. - EKG Interpretation by Me Additional EKG results interpreted by me: 10/26/19 14:52 Twelve-lead EKG shows heart rate sinus tachycardia with a right atrial abn ormality and borderline right axis deviation no acute STEMI. Critical Care Note - Critical Care Note Total time excluding time spent on procedures (mins): 50 - Plan is inpatient post intubation status respiratory failure, IV antibiotics for infection control management, IV fluid resuscitation management of ventilator support, and co ordinating services with the strategic planning consultant. Discharge - Discharge Clinical Impression: COPD with acute exacerbation, Respiratory failure requiring intubation, CHF (congestive heart failure) Leukocytosis Qualifiers: Leukocytosis type: leukemoid reaction Qualified Code(s): D72.823 - Leukemoid reaction Condition: Critical Disposition: ADMITTED INPATIENT Admitting Provider: Fely (Hide Inspector And Sorter) Unit Admitted: ICU I personally performed the services described in the documentation, reviewed and edited the documentation which was dictated to the scribe in my presence, and it accurately records my words and actions.
--- NOTE | 2019-10-26 15:01 | Operative Report ---
Bedside Procedure - History of Present Illness Indication for Procedure: Poor IV access, IO only route. Date: 10/26/19 Provider: ALISA Villarreal Central Line Right Femoral Time completed: 13:30 Consent obtained: No Central line pre-insertion: Sterile PPE donned, Chloraprep applied, Sterile drapes applied Central line lumen type: Triple Anesthetic type: 1% Lidocaine Ultrasound guided: No Line secured with sutures: Yes Central line post-insertion: Blood return from lumens, Biopatch applied, Sutured, Sterile dressing applied Complications: No Notes: 10/26/19 14:59 Attempted RIJ, R subclavian sites with no success. Femoral line finally placed.
[2019-10-26] MEDS: PROPOFOL 1,000 MG/100 ML INFUS..BTL IV PRN ×2 (15:22→23:15)
[2019-10-26] MEDS: ENOXAPARIN SODIUM INJ 40 MG/0.4 ML DISP.SYRIN SUBCUT SCH (15:22)
[2019-10-26] MEDS: RINGERS SOLUTION,LACTATED 1,000 ML IV PRN (15:31)
[2019-10-26] MEDS: IPRATROPIUM/ALBUTEROL 0.5-2.5 MG/3 ML AMPUL NEB SCH ×3 (16:08→19:54)
[2019-10-26] MEDS ORDERED: DEXTROSE 50%-WATER 25 GM/50 ML DISP.SYRIN IV PRN ×2 (23:39)
[2019-10-26] MEDS ORDERED: GLUCAGON,HUMAN RECOMB 1 MG INJ IM PRN (23:39)
[2019-10-26] MEDS ORDERED: DEXTROSE 40% GEL 15 GM TUBE PO PRN ×2 (23:39)
[2019-10-26] MEDS ORDERED: CEFEPIME 2 GM/D5W RTU 2 GM/50 ML RTUPB IV SCH (23:45)
[2019-10-27] MEDS: IPRATROPIUM/ALBUTEROL 0.5-2.5 MG/3 ML AMPUL NEB SCH ×7 (00:19→23:45)
[2019-10-27] MEDS: INSULIN REG, HUMAN 100 UNIT/ML 3 ML VIAL (PYX) SUBCUT SCH ×4 (00:25→17:37)
[2019-10-27] MEDS: RINGERS SOLUTION,LACTATED 1,000 ML IV PRN ×2 (00:26→13:46)
[2019-10-27] MEDS ORDERED: FENTANYL CITRATE INJ/PF 100 MCG/2 ML AMPUL ONE (01:32)
[2019-10-27] MEDS ORDERED: FENTANYL CITRATE INJ/PF 100 MCG/2 ML AMPUL IV ONE ×2 (01:37→01:54)
[2019-10-27] MEDS ORDERED: FENTANYL CITRATE IV PRN (02:41)
[2019-10-27] MEDS ORDERED: NORMAL SALINE IV PRN (02:41)
[2019-10-27 03:52] LABS: HEMATOCRIT 32.6 % (36.0-47.0); HEMOGLOBIN 10.4 g/dL (12.0-15.5); MEAN CORPUSCULAR HEMOGLOBIN 28.6 pg (27.0-33.4); MEAN CORPUSCULAR HGB CONC 32.1 g/dL (32.0-36.0); MEAN CORPUSCULAR VOLUME 89 fl (80-97); PLATELET COUNT 362 10^3/uL (150-450); RED BLOOD COUNT 3.65 10^6/uL (3.72-5.28); RED CELL DISTRIBUTION WIDTH 18.8 % (11.5-14.0); WHITE BLOOD COUNT 27.8 10^3/uL (4.0-10.5)
[2019-10-27 04:00] LABS: ANION GAP 6 (5-19); BLOOD UREA NITROGEN 19 mg/dL (7-20); CALCIUM 8.7 mg/dL (8.4-10.2); CARBON DIOXIDE 32 mmol/L (22-30); CHLORIDE 97 mmol/L (98-107); GLUCOSE 140 mg/dL (75-110)
[2019-10-27 04:13] LABS: ABSOLUTE LYMPHOCYTES# (MANUAL) 0.3 10^3/uL (0.5-4.7); ABSOLUTE MONOCYTES # (MANUAL) 0.3 10^3/uL (0.1-1.4); BASOPHILS % (MANUAL) 0 % (0-2); EOSINOPHILS % (MANUAL) 0 % (0-6); LYMPHOCYTES % (MANUAL) 1 % (13-45); MONOCYTES % (MANUAL) 1 % (3-13); SEGMENTED NEUTROPHILS % (MAN) 98 % (42-78); TOTAL CELLS COUNTED 100
[2019-10-27 04:14] LABS: ANISOCYTOSIS 1+; OVALOCYTES SLIGHT; PLATELET COMMENT ADEQUATE; POIKILOCYTOSIS 1+; TEAR DROP CELLS SLIGHT; TOXIC GRANULATION SLIGHT
[2019-10-27] MEDS: FENTANYL CITRATE/PF 600 MCG/60 ML BAG IV PRN ×4 (04:33→21:48)
[2019-10-27] MEDS: PROPOFOL 1,000 MG/100 ML INFUS..BTL IV PRN ×5 (04:42→23:45)
[2019-10-27] MEDS: LEVOTHYROXINE SODIUM 0.05 MG TABLET PO SCH (06:08)
[2019-10-27] MEDS: CEFEPIME HCL 2 GM in DEXTROSE 5%-WATER 50 ML IV SCH ×2 (11:23→21:48)
[2019-10-27] MEDS: ENOXAPARIN SODIUM INJ 40 MG/0.4 ML DISP.SYRIN SUBCUT SCH (11:24)
[2019-10-27] MEDS: PANTOPRAZOLE SODIUM 40 MG VIAL IV SCH (11:24)
[2019-10-27] MEDS: METHYLPREDNISOLONE INJ 125 MG/2 ML SDV IV SCH ×2 (11:24→17:36)
[2019-10-27] MEDS: ROPINIROLE HCL 2 MG TABLET PO SCH (11:24)
--- NOTE | 2019-10-27 18:34 | PDOC CRITICAL CARE PROG REPORT ---
General Date:: 10/27/19 ICU Day:: 2 Ventilator Day:: 2 Hospital Day:: 2 Resuscitation Status: Full Code Events in the past 12 to 24 Hours:: 10/26: Admitted yesterday with clinical impression of COPD exacerbation. Intubated for acute hypoxemic respiratory failure and associated altered mental status. Remains intubated. On empiric cefepime for leukocytosis and abnormal chest x-ray. Blood cultures (10/25) show no growth to date. Urine and tracheal aspirate cultures are pending. Review of systems relevant to events:: Neurologic: Altered mental status/hypoxic encephalopathy Respiratory: Acute hypoxemic respiratory failure, COPD exacerbation Cardiovascular: Congestive heart failure, hypertension Psychiatric: Bipolar disorder Reason for ICU Addmission:: Intubated for COPD exacerbation - Medications: Medications reviewed and adjusted accordingly: Yes Sedation:: Propofol, fentanyl Physical Exam Vital Signs: Temp Pulse Resp BP Pulse Ox 96.3 F L 77 10 L 104/60 100 10/27/19 10:21 10/27/19 11:43 10/27/19 11:43 10/27/19 10:21 10/27/19 11:43 Intake & Output 10/26/19 10/27/19 10/28/19 06:59 06:59 06:59 Intake Total 1377 100 Output Total 965 100 Balance 412 0 Weight 57.2 kg Weight/Height Weight 57.2 kg Height 1.63 m General appearance: PRESENT: no acute distress, well-developed, well-nourished Head exam: PRESENT: atraumatic, normocephalic Eye exam: PRESENT: conjunctiva pink, EOMI, PERRLA. ABSENT: scleral icterus Mouth exam: PRESENT: moist, tongue midline Neck exam: ABSENT: carotid bruit, JVD, lymphadenopathy, thyromegaly Respiratory exam: PRESENT: crackles, decreased breath sounds, prolonged expiratory phas, rhonchi, wheezes. ABSENT: rales Pulses: PRESENT: normal dorsalis pedis pul GI/Abdominal exam: PRESENT: normal bowel sounds, soft. ABSENT: distended, guarding, mass, organolmegaly, rebound, tenderness Gentrourinary exam: PRESENT: indwelling catheter Extremities exam: PRESENT: full ROM. ABSENT: calf tenderness, clubbing, pedal edema Neurological exam: PRESENT: CN II-XII grossly intact, other - Dated with fentanyl/propofol. ABSENT: motor sensory deficit Skin exam: PRESENT: dry, intact, warm. ABSENT: cyanosis, rash Laboratory/Radiographs Laboratory Results: 10/27/19 01:50 10/27/19 01:50 10/26/19 10/26/19 10/26/19 11:30 11:30 11:30 WBC 29.5 H RBC 3.74 Hgb 10.8 L Hct 33.3 L MCV 89 MCH 28.9 MCHC 32.4 RDW 19.2 H Plt Count 419 Seg Neutrophils % Not Reportable Carbonic Acid HCO3/H2CO3 Ratio ABG pH ABG pCO2 ABG pO2 ABG HCO3 ABG O2 Saturation ABG Base Excess FiO2 Sodium 134.7 L Potassium 4.4 Chloride 91 L Carbon Dioxide 37 H Anion Gap 7 BUN 23 H Creatinine 0.80 Est GFR ( Amer) > 60 Glucose 126 H Lactic Acid 0.8 Calcium 9.0 Total Bilirubin 0.3 AST 31 Alkaline Phosphatase 92 Total Protein 7.4 Albumin 3.6 Urine Color Urine Appearance Urine pH Ur Specific [place] Urine Protein Urine Glucose (UA) Urine Ketones Urine Blood Urine RBC (Auto) 10/26/19 10/26/19 10/26/19 12:10 13:25 17:00 WBC RBC Hgb Hct MCV MCH MCHC RDW Plt Count Seg Neutrophils % Carbonic Acid 1.95 H HCO3/H2CO3 Ratio 16:1 ABG pH 7.31 L ABG pCO2 64.9 H ABG pO2 71.5 L ABG HCO3 31.8 H ABG O2 Saturation 92.4 L ABG Base Excess 4.1 FiO2 60% Sodium Potassium Chloride Carbon Dioxide Anion Gap BUN Creatinine Est GFR ( Amer) Glucose Lactic Acid 0.6 L Calcium Total Bilirubin AST Alkaline Phosphatase Total Protein Albumin Urine Color YELLOW Urine Appearance CLEAR Urine pH 6.0 Ur Specific [place] 1.011 Urine Protein NEGATIVE Urine Glucose (UA) NEGATIVE Urine Ketones NEGATIVE Urine Blood NEGATIVE Urine RBC (Auto) 2 10/26/19 10/27/19 10/27/19 22:00 01:50 01:50 WBC 27.8 H RBC 3.65 L Hgb 10.4 L Hct 32.6 L MCV 89 MCH 28.6 MCHC 32.1 RDW 18.8 H Plt Count 362 Seg Neutrophils % Not Reportable Carbonic Acid HCO3/H2CO3 Ratio ABG pH ABG pCO2 ABG pO2 ABG HCO3 ABG O2 Saturation ABG Base Excess FiO2 Sodium 134.6 L Potassium 5.0 Chloride 97 L Carbon Dioxide 32 H Anion Gap 6 BUN 19 Creatinine 0.65 Est GFR ( Amer) > 60 Glucose 140 H Lactic Acid 0.7 Calcium 8.7 Total Bilirubin AST Alkaline Phosphatase Total Protein Albumin Urine Color Urine Appearance Urine pH Ur Specific [place] Urine Protein Urine Glucose (UA) Urine Ketones Urine Blood Urine RBC (Auto) 10/26/19 10/26/19 10/27/19 11:30 11:30 01:50 Creatine Kinase 182 H CK-MB (CK-2) 3.23 Troponin I 0.025 NT-Pro-B Natriuret Pep 1500 H 1270 H Impressions: Chest X-Ray 10/26/19 11:26 IMPRESSION: Endotracheal tube tip overlies the mid trachea, NG tube side port is above the GE junction approximately 2 cm. Increased interstitial prominence and small bilateral pleural effusions. All labs, radiographs, diagnostic studies and EKGs were personally reviewed: Yes In addition, reports of radiographic and diagnostic studies were read: Yes Assessment and Plan - Diagnosis (1) Acute on chronic respiratory failure with hypoxia and hypercapnia Is this a current diagnosis for this admission?: Yes Plan: Vent settings will be titrated based on ABG results. DuoNeb scheduled. Pulmicort scheduled. Albuterol as needed. Currently, the patient is on sedation with propofol/fentanyl infusions. It is noted that the patient is on Suboxone at home. Avoid volume overload. Increase PEEP to 8. (2) Leukocytosis Qualifiers: Leukocytosis type: leukemoid reaction Qualified Code(s): D72.823 - Leukemoid reaction Is this a current diagnosis for this admission?: Yes Plan: Currently on empiric cefepime. Follow-up culture data (blood, urine, tracheal aspirate). (3) Bipolar disorder Qualifiers: Active/Remission status: remission status unspecified Qualified Code(s): F31.9 - Bipolar disorder, unspecified Is this a current diagnosis for this admission?: Yes Plan: Home medications include doxepin 20 mg p.o. nightly; Celexa 20 mg p.o. daily. (4) Person under investigation for COVID-19 Is this a current diagnosis for this admission?: Yes Plan: SARS-2-CoV LINDA test PENDING. (5) Elevated brain natriuretic peptide (BNP) level Is this a current diagnosis for this admission?: Yes Plan: Avoid volume overload. 2D echo (01/21/2018): Grade 1 diastolic dysfunction. Critical Time Critical Time (minutes): 45 Level of Care: ICU -: 1. The care of a critical patient is a dynamic process. This note is a artists' booking representative synopsis but static in nature. The timeframe for treatments given in order is not necessarily the actual time these treatments may have been done. 2. This patient requires critical care secondary to ongoing requirements for therapy not offered or safe outside the critical care environment. Transfer to a lower level of care will result in altered life or limb morbidity and mortality. 3. Multidisciplinary rounds completed. 4. ABCDE bundle addressed.
[2019-10-27] MEDS ORDERED: MIDAZOLAM 2 MG/2 ML INJ ONE (22:11)
[2019-10-27] MEDS ORDERED: MIDAZOLAM 2 MG/2 ML INJ IV PRN (22:21)
[2019-10-27] MEDS ORDERED: MIDAZOLAM 2 MG/2 ML INJ IV ONE (22:23)
[2019-10-28] MEDS: INSULIN REG, HUMAN 100 UNIT/ML 3 ML VIAL (PYX) SUBCUT SCH ×4 (00:35→17:54)
[2019-10-28] MEDS: RINGERS SOLUTION,LACTATED 1,000 ML IV PRN ×2 (02:42→15:04)
[2019-10-28] MEDS: METHYLPREDNISOLONE INJ 125 MG/2 ML SDV IV SCH ×3 (02:42→18:16)
[2019-10-28] MEDS: IPRATROPIUM/ALBUTEROL 0.5-2.5 MG/3 ML AMPUL NEB SCH ×5 (03:50→20:20)
[2019-10-28 05:06] LABS: ARTERIAL BLOOD H2CO3 2.43 mmol/L (1.05-1.35); ARTERIAL BLOOD HCO3 33.5 mmol/L (20-24); ARTERIAL BLOOD O2 SATURATION 94.4 % (94-98); ARTERIAL BLOOD PH 7.24 (7.35-7.45); ARTERIAL BLOOD PO2 86.8 mmHg (80-100); ARTERIAL BLOOD TOTAL CO2 35.9 mmol/L (21-25)
[2019-10-28 05:07] LABS: ARTERIAL BLOOD FIO2 60%
[2019-10-28 05:09] LABS: ARTERIAL BLOOD PCO2 80.6 mmHg (35-45)
[2019-10-28 05:11] LABS: HEMATOCRIT 30.8 % (36.0-47.0); HEMOGLOBIN 9.6 g/dL (12.0-15.5); MEAN CORPUSCULAR HEMOGLOBIN 28.1 pg (27.0-33.4); MEAN CORPUSCULAR HGB CONC 31.2 g/dL (32.0-36.0); MEAN CORPUSCULAR VOLUME 90 fl (80-97); PLATELET COUNT 356 10^3/uL (150-450); RED BLOOD COUNT 3.43 10^6/uL (3.72-5.28); WHITE BLOOD COUNT 20.6 10^3/uL (4.0-10.5)
[2019-10-28 05:15] LABS: BLOOD UREA NITROGEN 18 mg/dL (7-20); CALCIUM 8.8 mg/dL (8.4-10.2); GLUCOSE 128 mg/dL (75-110); PHOSPHORUS 3.7 mg/dL (2.5-4.5); POTASSIUM 4.4 mmol/L (3.6-5.0)
[2019-10-28 05:20] LABS: CARBON DIOXIDE 32 mmol/L (22-30); CHLORIDE 98 mmol/L (98-107)
[2019-10-28 05:26] LABS: ANION GAP 4 (5-19)
[2019-10-28 05:36] LABS: ABSOLUTE LYMPHOCYTES# (MANUAL) 0.6 10^3/uL (0.5-4.7); BAND NEUTROPHILS % (MANUAL) 1 % (3-5); BASOPHILS % (MANUAL) 0 % (0-2); EOSINOPHILS % (MANUAL) 0 % (0-6); LYMPHOCYTES % (MANUAL) 3 % (13-45); MONOCYTES % (MANUAL) 0 % (3-13); SEGMENTED NEUTROPHILS % (MAN) 96 % (42-78); TOTAL CELLS COUNTED 100
[2019-10-28 05:37] LABS: PLATELET COMMENT ADEQUATE; TOXIC GRANULATION SLIGHT; TOXIC VACUOLATION PRESENT
[2019-10-28 05:38] LABS: ANISOCYTOSIS 2+; OVALOCYTES SLIGHT
[2019-10-28 05:39] LABS: TEAR DROP CELLS SLIGHT
[2019-10-28] MEDS: PROPOFOL 1,000 MG/100 ML INFUS..BTL IV PRN ×3 (05:55→21:36)
[2019-10-28] MEDS: LEVOTHYROXINE SODIUM 0.05 MG TABLET PO SCH (06:43)
--- NOTE | 2019-10-28 09:25 | RADIOLOGY REPORT (SQ) ---
EXAM DESCRIPTION: CHEST SINGLE VIEW IMAGES COMPLETED DATE/TIME: 10/28/2019 5:35 am REASON FOR STUDY: ETT tube COMPARISON: 10/26/2019 NUMBER OF VIEWS: One view. TECHNIQUE: Single frontal radiographic image of the chest acquired. LIMITATIONS: None. FINDINGS: LUNGS AND PLEURA: Stable appearance. No pneumothorax. MEDIASTINUM AND HEART: Stable heart size and mediastinal structures. SUPPORT DEVICES: Appropriate location without change. BONY STRUCTURES: No acute findings. HARDWARE: None. OTHER: No other significant finding. IMPRESSION: No significant change. No pneumothorax. Reading location - IP/workstation name: [email or web address]
[2019-10-28] MEDS: PANTOPRAZOLE SODIUM 40 MG VIAL IV SCH (09:32)
[2019-10-28] MEDS: ENOXAPARIN SODIUM INJ 40 MG/0.4 ML DISP.SYRIN SUBCUT SCH (09:32)
[2019-10-28] MEDS: ROPINIROLE HCL 2 MG TABLET PO SCH (09:33)
[2019-10-28] MEDS: FENTANYL CITRATE/PF 600 MCG/60 ML BAG IV PRN ×2 (09:35→21:36)
[2019-10-28] MEDS: CEFEPIME HCL 2 GM in DEXTROSE 5%-WATER 50 ML IV SCH ×2 (09:36→21:37)
[2019-10-28] MEDS ORDERED: FUROSEMIDE INJ/PF 20 MG/2 ML SDV IV ONE (13:15)
[2019-10-28] MEDS ORDERED: VANCOMYCIN HCL 0 MG in DEXTROSE 5%-WATER 250 ML IV NR (13:30)
[2019-10-28] MEDS: VANCOMYCIN HCL 750 MG in DEXTROSE 5%-WATER 250 ML IV SCH (18:16)
[2019-10-28] MEDS: BUDESONIDE NEB 0.25 MG/2 ML AMPUL NEB SCH (20:20)
[2019-10-29] MEDS: INSULIN REG, HUMAN 100 UNIT/ML 3 ML VIAL (PYX) SUBCUT SCH ×4 (00:08→17:24)
[2019-10-29] MEDS: IPRATROPIUM/ALBUTEROL 0.5-2.5 MG/3 ML AMPUL NEB SCH ×6 (00:40→20:37)
[2019-10-29] MEDS: METHYLPREDNISOLONE INJ 125 MG/2 ML SDV IV SCH ×4 (02:10→21:33)
[2019-10-29] MEDS: PROPOFOL 1,000 MG/100 ML INFUS..BTL IV PRN ×4 (02:48→21:34)
[2019-10-29 04:06] LABS: ARTERIAL BLOOD HCO3 31.1 mmol/L (20-24); ARTERIAL BLOOD O2 SATURATION 93.9 % (94-98); ARTERIAL BLOOD PCO2 53.1 mmHg (35-45); ARTERIAL BLOOD PH 7.39 (7.35-7.45); ARTERIAL BLOOD PO2 71.2 mmHg (80-100); ARTERIAL BLOOD TOTAL CO2 32.8 mmol/L (21-25)
[2019-10-29 04:07] LABS: ARTERIAL BLOOD FIO2 45%
[2019-10-29 04:09] LABS: HEMATOCRIT 30.9 % (36.0-47.0); HEMOGLOBIN 9.8 g/dL (12.0-15.5); MEAN CORPUSCULAR HGB CONC 31.8 g/dL (32.0-36.0); MEAN CORPUSCULAR VOLUME 88 fl (80-97); PLATELET COUNT 368 10^3/uL (150-450); RED BLOOD COUNT 3.51 10^6/uL (3.72-5.28); RED CELL DISTRIBUTION WIDTH 19.1 % (11.5-14.0)
[2019-10-29 04:26] LABS: ABSOLUTE LYMPHOCYTES# (MANUAL) 0.4 10^3/uL (0.5-4.7); ABSOLUTE MONOCYTES # (MANUAL) 0.9 10^3/uL (0.1-1.4); ANISOCYTOSIS 2+; BAND NEUTROPHILS % (MANUAL) 1 % (3-5); BASOPHILS % (MANUAL) 0 % (0-2); BLOOD UREA NITROGEN 24 mg/dL (7-20); CALCIUM 8.8 mg/dL (8.4-10.2); EOSINOPHILS % (MANUAL) 0 % (0-6); GLUCOSE 122 mg/dL (75-110); LYMPHOCYTES % (MANUAL) 2 % (13-45); MONOCYTES % (MANUAL) 5 % (3-13); PHOSPHORUS 3.1 mg/dL (2.5-4.5); PLATELET COMMENT ADEQUATE; POTASSIUM 4.1 mmol/L (3.6-5.0); SEGMENTED NEUTROPHILS % (MAN) 92 % (42-78); TOTAL CELLS COUNTED 100
[2019-10-29 04:31] LABS: CARBON DIOXIDE 34 mmol/L (22-30); CHLORIDE 94 mmol/L (98-107)
[2019-10-29 04:32] LABS: PREALBUMIN 13.8 mg/dL (17.6-36.0)
[2019-10-29 04:34] LABS: ANION GAP 5 (5-19)
[2019-10-29] MEDS: VANCOMYCIN HCL 750 MG in DEXTROSE 5%-WATER 250 ML IV SCH (05:08)
[2019-10-29] MEDS: LEVOTHYROXINE SODIUM 0.05 MG TABLET PO SCH (05:10)
--- NOTE | 2019-10-29 08:09 | PDOC CRITICAL CARE PROG REPORT ---
General Date:: 10/28/19 ICU Day:: 3 Ventilator Day:: 3 Hospital Day:: 3 Resuscitation Status: Full Code Events in the past 12 to 24 Hours:: 10/26: Admitted yesterday with clinical impression of COPD exacerbation. Intubated for acute hypoxemic respiratory failure and associated altered mental status. Remains intubated. On empiric cefepime for leukocytosis and abnormal chest x-ray. Blood cultures (10/25) show no growth to date. Urine and tracheal aspirate cultures are pending. 10/27: Remains intubated. On SIMV (PRVC), FiO2 60%. Was excessively sedated throughout the day yesterday. Improved with decreasing fentanyl. proBNP 1520. Chest x-ray today is compatible with pulmonary edema. Review of systems relevant to events:: Neurologic: Altered mental status/hypoxic encephalopathy Respiratory: Acute hypoxemic respiratory failure, COPD exacerbation Cardiovascular: Congestive heart failure, hypertension Psychiatric: Bipolar disorder Reason for ICU Addmission:: Intubated for COPD exacerbation - Medications: Medications reviewed and adjusted accordingly: Yes Sedation:: Propofol, fentanyl Physical Exam Vital Signs: Temp Pulse Resp BP Pulse Ox 97.0 F 93 20 112/59 L 99 10/28/19 06:00 10/28/19 12:56 10/28/19 12:56 10/28/19 05:41 10/28/19 12:56 Intake & Output 10/27/19 10/28/19 10/29/19 06:59 06:59 06:59 Intake Total 1377 2491 Output Total 965 1255 150 Balance 412 1236 -150 Weight 57.2 kg 57.8 kg Weight/Height Weight 57.8 kg Height 1.63 m General appearance: PRESENT: no acute distress, well-developed, well-nourished, other - Intubated Head exam: PRESENT: atraumatic, normocephalic Eye exam: PRESENT: conjunctiva pink, EOMI, PERRLA. ABSENT: scleral icterus Mouth exam: PRESENT: moist, tongue midline Neck exam: ABSENT: carotid bruit, JVD, lymphadenopathy, thyromegaly Respiratory exam: PRESENT: crackles, decreased breath sounds, rhonchi Cardiovascular exam: PRESENT: RRR. ABSENT: diastolic murmur, rubs, systolic murmur Pulses: PRESENT: normal dorsalis pedis pul GI/Abdominal exam: PRESENT: normal bowel sounds, soft. ABSENT: distended, guarding, mass, organolmegaly, rebound, tenderness Extremities exam: PRESENT: full ROM. ABSENT: calf tenderness, clubbing, pedal edema Neurological exam: PRESENT: CN II-XII grossly intact. ABSENT: motor sensory deficit Psychiatric exam: ABSENT: agitated, anxious Skin exam: PRESENT: dry, intact, warm. ABSENT: cyanosis, rash Tubes/Lines: PRESENT: Endotracheal Tube Laboratory/Radiographs Laboratory Results: 10/28/19 04:25 10/28/19 04:25 10/28/19 10/28/19 10/28/19 04:25 04:25 04:25 WBC 20.6 H RBC 3.43 L Hgb 9.6 L Hct 30.8 L MCV 90 MCH 28.1 MCHC 31.2 L RDW 19.0 H Plt Count 356 Seg Neutrophils % Not Reportable Carbonic Acid 2.43 H HCO3/H2CO3 Ratio 13:1 ABG pH 7.24 L ABG pCO2 80.6 H* ABG pO2 86.8 ABG HCO3 33.5 H ABG O2 Saturation 94.4 ABG Base Excess 4.0 FiO2 60% Sodium 133.8 L Potassium 4.4 Chloride 98 Carbon Dioxide 32 H Anion Gap 4 L BUN 18 Creatinine 0.60 Est GFR ( Amer) > 60 Glucose 128 H Calcium 8.8 Phosphorus 3.7 Magnesium 1.9 Ferritin 64.50 10/26/19 10/26/19 10/27/19 11:30 11:30 01:50 Creatine Kinase 182 H CK-MB (CK-2) 3.23 Troponin I 0.025 NT-Pro-B Natriuret Pep 1500 H 1270 H 10/28/19 04:25 Creatine Kinase CK-MB (CK-2) Troponin I NT-Pro-B Natriuret Pep 1520 H Impressions: Chest X-Ray 10/28/19 05:00 IMPRESSION: No significant change. No pneumothorax. All labs, radiographs, diagnostic studies and EKGs were personally reviewed: Yes In addition, reports of radiographic and diagnostic studies were read: Yes Assessment and Plan - Diagnosis (1) Acute on chronic respiratory failure with hypoxia and hypercapnia Is this a current diagnosis for this admission?: Yes Plan: Furosemide 20 mg IV single dose. Monitor urine output. Vent settings will be titrated based on ABG results. DuoNeb scheduled. Pulmicort scheduled. Albuterol as needed. Currently, the patient is on sedation with propofol/fentanyl infusions. Titrate sedation for RASS -1. It is noted that the patient is on Suboxone at home. Decrease Solu-Medrol to 60 mg IV every 8 hours. (2) Leukocytosis Qualifiers: Leukocytosis type: leukemoid reaction Qualified Code(s): D72.823 - Leukemoid reaction Is this a current diagnosis for this admission?: Yes Plan: Currently on empiric cefepime. Trach aspirate positive for gram-positive cocci in clusters. Add vancomycin. (3) Bipolar disorder Qualifiers: Active/Remission status: remission status unspecified Qualified Code(s): F31.9 - Bipolar disorder, unspecified Is this a current diagnosis for this admission?: Yes Plan: Home medications include doxepin 20 mg p.o. nightly; Celexa 20 mg p.o. daily. (4) Person under investigation for COVID-19 Is this a current diagnosis for this admission?: Yes Plan: SARS-2-CoV LINDA test PENDING. (5) Elevated brain natriuretic peptide (BNP) level Is this a current diagnosis for this admission?: Yes Plan: Furosemide 20 mg IV single dose today. 2D echo (01/21/2018): Grade 1 diastolic dysfunction. Critical Time Critical Time (minutes): 60 Level of Care: ICU -: 1. The care of a critical patient is a dynamic process. This note is a sales representative church furniture synopsis but static in nature. The timeframe for treatments given in order is not necessarily the actual time these treatments may have been done. 2. This patient requires critical care secondary to ongoing requirements for therapy not offered or safe outside the critical care environment. Transfer to a lower level of care will result in altered life or limb morbidity and mort ality. 3. Multidisciplinary rounds completed. 4. ABCDE bundle addressed.
[2019-10-29] MEDS: RINGERS SOLUTION,LACTATED 1,000 ML IV PRN (08:54)
[2019-10-29] MEDS: FENTANYL CITRATE/PF 600 MCG/60 ML BAG IV PRN ×2 (09:00→17:25)
[2019-10-29] MEDS: BUDESONIDE NEB 0.25 MG/2 ML AMPUL NEB SCH ×2 (09:11→20:37)
[2019-10-29] MEDS: CEFEPIME HCL 2 GM in DEXTROSE 5%-WATER 50 ML IV SCH (09:12)
--- NOTE | 2019-10-29 09:32 | RADIOLOGY REPORT (SQ) ---
EXAM DESCRIPTION: CHEST SINGLE VIEW IMAGES COMPLETED DATE/TIME: 10/29/2019 6:47 am REASON FOR STUDY: ETT tube COMPARISON: 10/28/2019 EXAM PARAMETERS: NUMBER OF VIEWS: One view. TECHNIQUE: Single frontal radiographic view of the chest acquired. RADIATION DOSE: NA LIMITATIONS: None. FINDINGS: LUNGS AND PLEURA: Emphysematous change with hyperinflation and chronic interstitial opacit ies. No superimposed airspace disease. Trace pleural effusions versus pleural thickening. No pneum othorax. MEDIASTINUM AND HILAR STRUCTURES: Stable. HEART AND VASCULAR STRUCTURES: Enlarged, stable. BONES: No acute findings. HARDWARE: Endotracheal tube tip overlies midthoracic trachea. Enteric tube side port above GE juncti on. OTHER: No other significant finding. IMPRESSION: 1. Stable emphysematous change without evidence of new cardiopulmonary process. 2. Enteric tube side port above the GE junction. Recommend advancing 5 cm. 3. Endotracheal tube tip overlies midthoracic trachea, stable. TECHNICAL DOCUMENTATION: JOB ID: [id number] [employer]- All Rights Reserved Reading location - IP/workstation name: [email or web address]
[2019-10-29] MEDS: PANTOPRAZOLE SODIUM 40 MG VIAL IV SCH (09:53)
[2019-10-29] MEDS: ENOXAPARIN SODIUM INJ 40 MG/0.4 ML DISP.SYRIN SUBCUT SCH (09:53)
[2019-10-29] MEDS: FUROSEMIDE INJ/PF 40 MG/4 ML SDV IV SCH ×2 (11:15→17:27)
[2019-10-29] MEDS: ROPINIROLE HCL 2 MG TABLET PO SCH (12:49)
[2019-10-29 16:36] LABS: ARTERIAL BLOOD BASE EXCESS 12.8 mmol/L; ARTERIAL BLOOD FIO2 40%; ARTERIAL BLOOD H2CO3 1.82 mmol/L (1.05-1.35); ARTERIAL BLOOD HCO3 39.4 mmol/L (20-24); ARTERIAL BLOOD O2 SATURATION 95.9 % (94-98); ARTERIAL BLOOD PCO2 60.4 mmHg (35-45); ARTERIAL BLOOD PH 7.43 (7.35-7.45); ARTERIAL BLOOD PO2 81.1 mmHg (80-100); ARTERIAL BLOOD TOTAL CO2 41.2 mmol/L (21-25)
--- NOTE | 2019-10-29 18:40 | PDOC CRITICAL CARE PROG REPORT ---
General Date:: 10/29/19 ICU Day:: 4 Ventilator Day:: 4 Hospital Day:: 4 Resuscitation Status: Full Code Events in the past 12 to 24 Hours:: 10/26: Admitted yesterday with clinical impression of COPD exacerbation. Intubated for acute hypoxemic respiratory failure and associated altered mental status. Remains intubated. On empiric cefepime for leukocytosis and abnormal chest x-ray. Blood cultures (10/25) show no growth to date. Urine and tracheal aspirate cultures are pending. 10/27: Remains intubated. On SIMV (PRVC), FiO2 60%. Was excessively sedated throughout the day yesterday. Improved with decreasing fentanyl. proBNP 1520. Chest x-ray today is compatible with pulmonary edema. 10/28: Remains intubated. On SIMV (PRVC), FiO2 45%. ABG this a.m.: 7.39/53/71. proBNP 3728. Had brisk diuresis with furosemide 20 mg IV single dose yesterday. Chest x-ray is improving but still compatible with pulmonary edema. Trach aspirate (10/25) showed 4+ PMNs, 1+ gram-positive cocci in pairs and clusters, few small GNR. Now, isolating gram-positive cocci in clusters, 1+. On cefepime/vancomycin. Review of systems relevant to events:: Neurologic: Altered mental status/hypoxic encephalopathy Respiratory: Acute hypoxemic respiratory failure, COPD exacerbation Cardiovascular: Congestive heart failure, hypertension Psychiatric: Bipolar disorder Reason for ICU Addmission:: Intubated for COPD exacerbation - Medications: Medications reviewed and adjusted accordingly: Yes Sedation:: Propofol, fentanyl Physical Exam Vital Signs: Temp Pulse Resp BP Pulse Ox 98.4 F 105 H 16 155/75 H 97 10/29/19 09:38 10/29/19 09:41 10/29/19 09:41 10/29/19 09:01 10/29/19 09:41 Intake & Output 10/28/19 10/29/19 10/30/19 06:59 06:59 06:59 Intake Total 2491 2577 397 Output Total 1255 2220 900 Balance 1236 357 -503 Weight 57.8 kg 58.7 kg Weight/Height Weight 58.7 kg Height 1.63 m Head exam: PRESENT: atraumatic, normocephalic Eye exam: PRESENT: conjunctiva pink, EOMI, PERRLA. ABSENT: scleral icterus Mouth exam: PRESENT: moist, tongue midline Neck exam: ABSENT: carotid bruit, JVD, lymphadenopathy, thyromegaly Respiratory exam: PRESENT: clear to auscultation lopez, crackles - Dependent. ABSENT: rales, rhonchi, wheezes Cardiovascular exam: PRESENT: RRR. ABSENT: diastolic murmur, rubs, systolic murmur GI/Abdominal exam: PRESENT: normal bowel sounds, soft. ABSENT: distended, guarding, mass, organolmegaly, rebound, tenderness Gentrourinary exam: PRESENT: indwelling catheter Extremities exam: PRESENT: full ROM. ABSENT: calf tenderness, clubbing, pedal edema Musculoskeletal exam: PRESENT: normal inspection. ABSENT: deformity Neurological exam: PRESENT: CN II-XII grossly intact. ABSENT: motor sensory deficit Psychiatric exam: ABSENT: agitated, anxious Skin exam: PRESENT: dry, intact, warm. ABSENT: cyanosis, rash Tubes/Lines: PRESENT: Endotracheal Tube, Central Line - Right femoral Laboratory/Radiographs Laboratory Results: 10/29/19 03:55 10/29/19 03:55 10/29/19 10/29/19 10/29/19 03:55 03:55 03:55 WBC 18.0 H RBC 3.51 L Hgb 9.8 L Hct 30.9 L MCV 88 MCH 28.0 MCHC 31.8 L RDW 19.1 H Plt Count 368 Seg Neutrophils % Not Reportable Carbonic Acid 1.60 H HCO3/H2CO3 Ratio 19:1 ABG pH 7.39 ABG pCO2 53.1 H ABG pO2 71.2 L ABG HCO3 31.1 H ABG O2 Saturation 93.9 L ABG Base Excess 5.0 FiO2 45% Sodium 132.5 L Potassium 4.1 Chloride 94 L Carbon Dioxide 34 H Anion Gap 5 BUN 24 H Creatinine 0.67 Est GFR ( Amer) > 60 Glucose 122 H Calcium 8.8 Phosphorus 3.1 Magnesium 1.7 Prealbumin 13.8 L 10/27/19 01:50 Tapia Catheter Urine Culture - Final NO GROWTH 2 DAYS 10/26/19 10/26/19 10/27/19 11:30 11:30 01:50 Creatine Kinase 182 H CK-MB (CK-2) 3.23 Troponin I 0.025 NT-Pro-B Natriuret Pep 1500 H 1270 H 10/28/19 10/29/19 04:25 03:55 Creatine Kinase CK-MB (CK-2) Troponin I NT-Pro-B Natriuret Pep 1520 H 3720 H Impressions: Chest X-Ray 10/29/19 05:00 IMPRESSION: 1. Stable emphysematous change without evidence of new cardiopulmonary process. 2. Enteric tube side port above the GE junction. Recommend advancing 5 cm. 3. Endotracheal tube tip overlies midthoracic trachea, stable. All labs, radiographs, diagnostic studies and EKGs were personally reviewed: Yes In addition, reports of radiographic and diagnostic studies were read: Yes Assessment and Plan - Diagnosis (1) Acute on chronic respiratory failure with hypoxia and hypercapnia Is this a current diagnosis for this admission?: Yes Plan: Furosemide 20 mg IV single dose. Monitor urine output. Vent settings will be titrated based on ABG results. DuoNeb scheduled. Pulmicort scheduled. Albuterol as needed. Currently, the patient is on sedation with propofol/fentanyl infusions. Titrate sedation for RASS -1. It is noted that the patient is on Suboxone at home. Decrease Solu-Medrol to 60 mg IV every 12 hours. On LTOT at home (3 LPM). (2) Haemophilus influenzae pneumonia Qualifiers: Laterality: bilateral Lung location: unspecified part of lung Qualified Code(s): J14 - Pneumonia due to Hemophilus influenzae Is this a current diagnosis for this admission?: Yes Plan: Will change cefepime to Rocephin after today's doses. Stop vancomycin. (3) Bipolar disorder Qualifiers: Active/Remission status: remission status unspecified Qualified Code(s): F31.9 - Bipolar disorder, unspecified Is this a current diagnosis for this admission?: Yes (4) Elevated brain natriuretic peptide (BNP) level Is this a current diagnosis for this admission?: Yes Plan: Furosemide 20 mg IV every 6 hours x2 doses today. Of note, the patient takes Lasix 40 mg p.o. daily. 2D echo (01/21/2018): Grade 1 diastolic dysfunction. (5) COVID-19 ruled out by laboratory testing Is this a current diagnosis for this admission?: Yes (6) Type 2 diabetes mellitus Qualifiers: Diabetes mellitus supervisor intermediates insulin use: without supervisor intermediates use Diabetes mellitus complication status: with circulatory complication Diabetes mellitus complication detail: with other circulatory complications Qualified Code(s): E11.59 - Type 2 diabetes mellitus with other circulatory complications Is this a current diagnosis for this admission?: Yes Plan: Start Glucerna. Sliding scale insulin. Critical Time Critical Time (minutes): 60 Level of Care: ICU -: 1. The care of a critical patient is a dynamic process. This note is a physician relations representative synopsis but static in nature. The timeframe for treatments given in order is not necessarily the actual time these treatments may have been done. 2. This patient requires critical care secondary to ongoing requirements for therapy not offered or safe outside the critical care environment. Transfer to a lower level of care will result in altered life or limb morbidity and mortality. 3. Multidisciplinary rounds completed. 4. ABCDE bundle addressed.
[2019-10-29] MEDS ORDERED: DOXEPIN HCL 10 MG CAPSULE PO SCH (22:00)
[2019-10-29] MEDS ORDERED: CEFEPIME 1 GM/D5W RTU 1 GM/50 ML RTUPB IV SCH (22:00)
[2019-10-29] MEDS ORDERED: ATORVASTATIN CALCIUM 40 MG TABLET PO SCH (22:00)
[2019-10-29] MEDS ORDERED: CEFEPIME HCL 1 GM in DEXTROSE 5%-WATER 50 ML IV SCH (22:00)
[2019-10-29] MEDS ORDERED: CARVEDILOL 3.125 MG TABLET PO SCH (22:00)
[2019-10-30] MEDS: INSULIN REG, HUMAN 100 UNIT/ML 3 ML VIAL (PYX) SUBCUT SCH ×4 (00:45→18:17)
[2019-10-30] MEDS: IPRATROPIUM/ALBUTEROL 0.5-2.5 MG/3 ML AMPUL NEB SCH ×2 (00:48→04:16)
[2019-10-30] MEDS: FENTANYL CITRATE/PF 600 MCG/60 ML BAG IV PRN ×2 (01:20→09:27)
[2019-10-30] MEDS: PROPOFOL 1,000 MG/100 ML INFUS..BTL IV PRN ×2 (02:52→09:22)
[2019-10-30 05:40] LABS: ARTERIAL BLOOD BASE EXCESS 14.3 mmol/L; ARTERIAL BLOOD H2CO3 1.96 mmol/L (1.05-1.35); ARTERIAL BLOOD HCO3 41.4 mmol/L (20-24); ARTERIAL BLOOD O2 SATURATION 94.8 % (94-98); ARTERIAL BLOOD PH 7.42 (7.35-7.45); ARTERIAL BLOOD PO2 74.8 mmHg (80-100); ARTERIAL BLOOD TOTAL CO2 43.4 mmol/L (21-25)
[2019-10-30 05:41] LABS: ARTERIAL BLOOD FIO2 40%
[2019-10-30] MEDS ORDERED: LEVOTHYROXINE SODIUM 0.05 MG TABLET PO SCH (06:00)
[2019-10-30 06:32] LABS: HEMATOCRIT 30.5 % (36.0-47.0); HEMOGLOBIN 10.1 g/dL (12.0-15.5); MEAN CORPUSCULAR HEMOGLOBIN 28.7 pg (27.0-33.4); MEAN CORPUSCULAR VOLUME 87 fl (80-97); PLATELET COUNT 347 10^3/uL (150-450); RED BLOOD COUNT 3.51 10^6/uL (3.72-5.28); RED CELL DISTRIBUTION WIDTH 18.8 % (11.5-14.0); WHITE BLOOD COUNT 14.6 10^3/uL (4.0-10.5)
[2019-10-30 06:46] LABS: BLOOD UREA NITROGEN 29 mg/dL (7-20); CALCIUM 8.4 mg/dL (8.4-10.2); CHLORIDE 90 mmol/L (98-107); GLUCOSE 138 mg/dL (75-110); POTASSIUM 4.3 mmol/L (3.6-5.0)
[2019-10-30 06:46] LABS: PHOSPHORUS 3.5 mg/dL (2.5-4.5)
[2019-10-30 06:50] LABS: VANCOMYCIN,TROUGH 6.7 ug/mL (5.0-20.0)
[2019-10-30 06:55] LABS: ANION GAP 3 (5-19); CARBON DIOXIDE 38 mmol/L (22-30)
[2019-10-30 07:21] LABS: ABSOLUTE LYMPHOCYTES# (MANUAL) 0.3 10^3/uL (0.5-4.7); ABSOLUTE MONOCYTES # (MANUAL) 0.7 10^3/uL (0.1-1.4); ANISOCYTOSIS 1+; BASOPHILS % (MANUAL) 0 % (0-2); EOSINOPHILS % (MANUAL) 0 % (0-6); LYMPHOCYTES % (MANUAL) 2 % (13-45); MONOCYTES % (MANUAL) 5 % (3-13); SEGMENTED NEUTROPHILS % (MAN) 93 % (42-78); TOTAL CELLS COUNTED 100
[2019-10-30 07:22] LABS: PLATELET CLUMPS PRESENT; PLATELET COMMENT ADEQUATE; POLYCHROMASIA SLIGHT; STOMATOCYTES SLIGHT
[2019-10-30] MEDS ORDERED: ALBUTEROL SULFATE 0.083% NEB 2.5 MG/3 ML AMPUL NEB PRN (07:51)
[2019-10-30] MEDS ORDERED: VANCOMYCIN HCL 0 MG in DEXTROSE 5%-WATER 250 ML IV NR (08:30)
[2019-10-30] MEDS: PANTOPRAZOLE SODIUM 40 MG VIAL IV SCH (09:10)
[2019-10-30] MEDS: CEFTRIAXONE 1 GM/D5W RTU 1 GM/50 ML RTUPB IV SCH (09:11)
[2019-10-30] MEDS: METHYLPREDNISOLONE INJ 40 MG/1 ML SDV IV SCH ×2 (09:11→21:06)
[2019-10-30] MEDS: FUROSEMIDE INJ/PF 20 MG/2 ML SDV IV SCH ×2 (09:11→21:06)
[2019-10-30] MEDS: BUDESONIDE NEB 0.25 MG/2 ML AMPUL NEB SCH ×2 (09:15→20:13)
[2019-10-30] MEDS: ALBUTEROL SULFATE 0.083% NEB 2.5 MG/3 ML AMPUL NEB SCH ×3 (09:15→20:13)
[2019-10-30] MEDS: VANCOMYCIN HCL 750 MG in DEXTROSE 5%-WATER 250 ML IV SCH ×2 (09:16→22:05)
[2019-10-30] MEDS: ENOXAPARIN SODIUM INJ 40 MG/0.4 ML DISP.SYRIN SUBCUT SCH (09:17)
[2019-10-30] MEDS ORDERED: CARVEDILOL 3.125 MG TABLET NG SCH (10:00)
[2019-10-30] MEDS ORDERED: CITALOPRAM HYDROBROMIDE 20 MG TABLET NG SCH (10:00)
[2019-10-30] MEDS ORDERED: METHYLPREDNISOLONE INJ 125 MG/2 ML SDV IV SCH ×2 (10:00)
[2019-10-30] MEDS ORDERED: ROPINIROLE HCL 2 MG TABLET NG SCH (10:00)
[2019-10-30] MEDS ORDERED: AMLODIPINE BESYLATE 5 MG TABLET NG SCH (10:00)
--- NOTE | 2019-10-30 17:42 | PDOC CRITICAL CARE PROG REPORT ---
General Date:: 10/30/19 ICU Day:: 5 Ventilator Day:: 5 Hospital Day:: 5 Resuscitation Status: Full Code Events in the past 12 to 24 Hours:: 10/26: Admitted yesterday with clinical impression of COPD exacerbation. Intubated for acute hypoxemic respiratory failure and associated altered mental status. Remains intubated. On empiric cefepime for leukocytosis and abnormal chest x-ray. Blood cultures (10/25) show no growth to date. Urine and tracheal aspirate cultures are pending. 10/27: Remains intubated. On SIMV (PRVC), FiO2 60%. Was excessively sedated throughout the day yesterday. Improved with decreasing fentanyl. proBNP 1520. Chest x-ray today is compatible with pulmonary edema. 10/28: Remains intubated. On SIMV (PRVC), FiO2 45%. ABG this a.m.: 7.39/53/71. proBNP 3728. Had brisk diuresis with furosemide 20 mg IV single dose yesterday. Chest x-ray is improving but still compatible with pulmonary edema. Trach aspirate (10/25) showed 4+ PMNs, 1+ gram-positive cocci in pairs and clusters, few small GNR. Now, isolating gram-positive cocci in clusters, 1+. On cefepime/vancomycin. 10/29: Remains intubated. On SIMV (PRVC), FiO2 40%. ABG this mornin.42/65/75. proBNP 2830. Trach aspirate isolated Haemophilus influenzae. Cefepime changed to Rocephin. Today, culture results have added MRSA. Had brisk diuresis with furosemide 20 mg IV every 6x2 doses yesterday). (Of note, the patient normally takes Lasix 40 mg p.o. daily. Review of systems relevant to events:: Neurologic: Altered mental status/hypoxic encephalopathy Respiratory: Acute hypoxemic respiratory failure, COPD exacerbation Cardiovascular: Congestive heart failure, hypertension Psychiatric: Bipolar disorder Reason for ICU Addmission:: Intubated for COPD exacerbation - Medications: Medications reviewed and adjusted accordingly: Yes Sedation:: Propofol, fentanyl Physical Exam Vital Signs: Temp Pulse Resp BP Pulse Ox 99.0 F 68 10 L 119/58 L 95 10/29/19 20:00 10/30/19 04:18 10/30/19 06:00 10/29/19 21:01 10/30/19 06:00 Intake & Output 10/29/19 10/30/19 10/31/19 06:59 06:59 06:59 Intake Total 2577 1489 Output Total 2220 8620 Balance 357 -8420 Weight 58.7 kg 58.4 kg Weight/Height Weight 58.4 kg Height 1.63 m General appearance: PRESENT: no acute distress, well-developed, well-nourished Head exam: PRESENT: atraumatic, normocephalic Eye exam: PRESENT: conjunctiva pink, EOMI, PERRLA. ABSENT: scleral icterus Mouth exam: PRESENT: moist, tongue midline Neck exam: ABSENT: carotid bruit, JVD, lymphadenopathy, thyromegaly Respiratory exam: PRESENT: rales - Inspiratory squeaks bilaterally, rhonchi, wheezes, other - Good air entry Cardiovascular exam: PRESENT: RRR. ABSENT: diastolic murmur, rubs, systolic murmur Pulses: PRESENT: normal dorsalis pedis pul Extremities exam: PRESENT: full ROM. ABSENT: calf tenderness, clubbing, pedal edema Neurological exam: PRESENT: reflexes normal, CN II-XII grossly intact. ABSENT: motor sensory deficit Psychiatric exam: PRESENT: other - Sedated. ABSENT: agitated, anxious Skin exam: PRESENT: dry, intact, warm. ABSENT: cyanosis, rash Tubes/Lines: PRESENT: Endotracheal Tube Laboratory/Radiographs Laboratory Results: 10/30/19 05:50 10/30/19 05:50 10/29/19 10/30/19 10/30/19 16:25 05:25 05:35 WBC RBC Hgb Hct MCV MCH MCHC RDW Plt Count Seg Neutrophils % Carbonic Acid 1.82 H 1.96 H HCO3/H2CO3 Ratio 21:1 21:1 ABG pH 7.43 7.42 ABG pCO2 60.4 H 65.0 H ABG pO2 81.1 74.8 L ABG HCO3 39.4 H 41.4 H ABG O2 Saturation 95.9 94.8 ABG Base Excess 12.8 14.3 FiO2 40% 40% Sodium Potassium Chloride Carbon Dioxide Anion Gap BUN Creatinine Cancelled Est GFR ( Amer) Cancelled Est GFR (Non-Af Amer) Cancelled Glucose Calcium Phosphorus 3.5 Magnesium 2.0 10/30/19 10/30/19 05:50 05:50 WBC 14.6 H RBC 3.51 L Hgb 10.1 L Hct 30.5 L MCV 87 MCH 28.7 MCHC 33.0 RDW 18.8 H Plt Count 347 Seg Neutrophils % Not Reportable Carbonic Acid HCO3/H2CO3 Ratio ABG pH ABG pCO2 ABG pO2 ABG HCO3 ABG O2 Saturation ABG Base Excess FiO2 Sodium 130.8 L Potassium 4.3 Chloride 90 L Carbon Dioxide 38 H Anion Gap 3 L BUN 29 H Creatinine 0.60 Est GFR ( Amer) > 60 Est GFR (Non-Af Amer) Glucose 138 H Calcium 8.4 Phosphorus Magnesium 10/27/19 01:50 Tracheal Aspirate Gram Stain - Final 10/27/19 01:50 Tapia Catheter Urine Culture - Final NO GROWTH 2 DAYS 10/26/19 10/26/19 10/27/19 11:30 11:30 01:50 Creatine Kinase 182 H CK-MB (CK-2) 3.23 Troponin I 0.025 NT-Pro-B Natriuret Pep 1500 H 1270 H 10/28/19 10/29/19 10/30/19 04:25 03:55 05:50 Creatine Kinase CK-MB (CK-2) Troponin I NT-Pro-B Natriuret Pep 1520 H 3720 H 2830 H Impressions: Chest X-Ray 10/29/19 05:00 IMPRESSION: 1. Stable emphysematous change without evidence of new cardiopulmonary process. 2. Enteric tube side port above the GE junction. Recommend advancing 5 cm. 3. Endotracheal tube tip overlies midthoracic trachea, stable. All labs, radiographs, diagnostic studies and EKGs were personally reviewed: Yes In addition, reports of radiographic and diagnostic studies were read: Yes Assessment and Plan - Diagnosis (1) Acute on chronic respiratory failure with hypoxia and hypercapnia Is this a current diagnosis for this admission?: Yes Plan: Furosemide 20 mg IV every 12 hours. Monitor urine output. Pressure support trial today. Anticipate extubation later today. Change DuoNeb to albuterol scheduled (to avoid desiccating properties of ipratropium). Pulmicort scheduled. Albuterol as needed. Currently, the patient is on sedation with propofol/fentanyl infusions. Titrate sedation for RASS -1. It is noted that the patient is on Suboxone at home. Decrease Solu-Medrol to 40 mg IV every 12 hours. On LTOT at home (3 LPM). (2) Haemophilus influenzae pneumonia Qualifiers: Laterality: bilateral Lung location: unspecified part of lung Qualified Code(s): J14 - Pneumonia due to Hemophilus influenzae Is this a current diagnosis for this admission?: Yes Plan: Continue Rocephin. (3) MRSA pneumonia Qualifiers: Laterality: bilateral Lung location: unspecified part of lung Qualified Code(s): J15.212 - Pneumonia due to Methicillin resistant Staphylococcus aureus Is this a current diagnosis for this admission?: Yes Plan: Vancomycin x10 days. (4) Bipolar disorder Qualifiers: Active/Remission status: remission status unspecified Qualified Code(s): F31.9 - Bipolar disorder, unspecified Is this a current diagnosis for this admission?: Yes (5) Elevated brain natriuretic peptide (BNP) level Is this a current diagnosis for this admission?: Yes Plan: Furosemide 20 mg IV every 12 hours. 2D echo (01/21/2018): Grade 1 diastolic dysfunction. (6) COVID-19 ruled out by laboratory testing Is this a current diagnosis for this admission?: Yes (7) Type 2 diabetes mellitus Qualifiers: Diabetes mellitus long-term insulin use: without long-term use Diabetes mellitus complication status: with circulatory complication Diabetes mellitus complication detail: with other circulatory complications Qualified Code(s): E11.59 - Type 2 diabetes mellitus with other circulatory complications Is this a current diagnosis for this admission?: Yes Critical Time Critical Time (minutes): 60 Level of Care: ICU -: 1. The care of a critical patient is a dynamic process. This note is a in store representative synopsis but static in nature. The timeframe for treatments given in order is not necessarily the actual time these treatments may have been done. 2. This patient requires critical care secondary to ongoing requirements for therapy not offered or safe outside the critical care environment. Transfer to a lower level of care will result in altered life or limb morbidity and mortality. 3. Multidisciplinary rounds completed. 4. ABCDE bundle addressed.
[2019-10-30] MEDS: DOXEPIN HCL 10 MG CAPSULE PO SCH (21:05)
[2019-10-30] MEDS: ATORVASTATIN CALCIUM 40 MG TABLET PO SCH (21:06)
[2019-10-30] MEDS: CARVEDILOL 3.125 MG TABLET PO SCH (21:06)
[2019-10-30] MEDS ORDERED: DOXEPIN HCL 10 MG CAPSULE NG SCH (22:00)
[2019-10-30] MEDS ORDERED: ATORVASTATIN CALCIUM 40 MG TABLET NG SCH (22:00)
[2019-10-31] MEDS: ALBUTEROL SULFATE 0.083% NEB 2.5 MG/3 ML AMPUL NEB SCH ×4 (02:00→20:15)
[2019-10-31] MEDS: LEVOTHYROXINE SODIUM 0.05 MG TABLET NG SCH (05:40)
[2019-10-31] MEDS: INSULIN REG, HUMAN 100 UNIT/ML 3 ML VIAL (PYX) SUBCUT SCH ×5 (06:01→23:40)
--- NOTE | 2019-10-31 07:59 | PDOC CRITICAL CARE PROG REPORT ---
General Date:: 10/31/19 ICU Day:: 6 Hospital Day:: 6 Resuscitation Status: Full Code Events in the past 12 to 24 Hours:: 10/26: Admitted yesterday with clinical impression of COPD exacerbation. Intubated for acute hypoxemic respiratory failure and associated altered mental status. Remains intubated. On empiric cefepime for leukocytosis and abnormal chest x-ray. Blood cultures (10/25) show no growth to date. Urine and tracheal aspirate cultures are pending. 10/27: Remains intubated. On SIMV (PRVC), FiO2 60%. Was excessively sedated throughout the day yesterday. Improved with decreasing fentanyl. proBNP 1520. Chest x-ray today is compatible with pulmonary edema. 10/28: Remains intubated. On SIMV (PRVC), FiO2 45%. ABG this a.m.: 7.39/53/71. proBNP 3728. Had brisk diuresis with furosemide 20 mg IV single dose yesterday. Chest x-ray is improving but still compatible with pulmonary edema. Trach aspirate (10/25) showed 4+ PMNs, 1+ gram-positive cocci in pairs and clusters, few small GNR. Now, isolating gram-positive cocci in clusters, 1+. On cefepime/vancomycin. 10/29: Remains intubated. On SIMV (PRVC), FiO2 40%. ABG this mornin.42/65/75. proBNP 2830. Trach aspirate isolated Haemophilus influenzae. Cefepime changed to Rocephin. Today, culture results have added MRSA. Had brisk diuresis with furosemide 20 mg IV every 6x2 doses yesterday). (Of note, the patient normally takes Lasix 40 mg p.o. daily. 10/30: Successfully extubated yesterday to 6 LPM via nasal cannula. Now on 5 LP M, SPO2 100%. No new complaints. On Rocephin/vancomycin for Haemophilus influenzae and MRSA in the sputum. Tolerating p.o. diet. Review of systems relevant to events:: Neurologic: Altered mental status/hypoxic encephalopathy Respiratory: Acute hypoxemic respiratory failure, COPD exacerbation Cardiovascular: Congestive heart failure, hypertension Psychiatric: Bipolar disorder Reason for ICU Addmission:: Intubated for COPD exacerbation - Medications: Medications reviewed and adjusted accordingly: Yes Physical Exam Vital Signs: Temp Pulse Resp BP Pulse Ox 97.9 F 65 15 137/77 H 100 10/31/19 06:00 10/31/19 07:45 10/31/19 06:01 10/31/19 06:01 10/31/19 06:01 Intake & Output 10/30/19 10/31/19 11/01/19 06:59 06:59 06:59 Intake Total 1489 925 Output Total 3850 4670 Balance -5861 -3620 Weight 58.4 kg 54.7 kg Weight/Height Weight 54.7 kg Height 1.63 m General appearance: PRESENT: no acute distress, well-developed, well-nourished Head exam: PRESENT: atraumatic, normocephalic Mouth exam: PRESENT: moist, tongue midline Neck exam: ABSENT: carotid bruit, JVD, lymphadenopathy, thyromegaly Respiratory exam: PRESENT: decreased breath sounds, rhonchi - Scattered end expiratory rhonchi Cardiovascular exam: PRESENT: RRR. ABSENT: diastolic murmur, rubs, systolic murmur Pulses: PRESENT: normal dorsalis pedis pul Gentrourinary exam: PRESENT: indwelling catheter Extremities exam: PRESENT: full ROM. ABSENT: calf tenderness, clubbing, pedal edema Musculoskeletal exam: PRESENT: normal inspection. ABSENT: deformity Neurological exam: PRESENT: alert, awake, oriented to person, oriented to place, oriented to time, oriented to situation, CN II-XII grossly intact. ABSENT: motor sensory deficit Psychiatric exam: ABSENT: agitated, anxious Skin exam: PRESENT: dry, intact, warm. ABSENT: cyanosis, rash Laboratory/Radiographs Laboratory Results: 10/30/19 05:50 10/30/19 05:50 10/27/19 01:50 Tracheal Aspirate Gram Stain - Final 10/27/19 01:50 Tracheal Aspirate Sputum Culture - Final Mrsa (Meth Resis Staph Aureus) Haemophilus Influenzae Greatly Reduced Normal Didi 10/26/19 10/26/19 10/27/19 11:30 11:30 01:50 Creatine Kinase 182 H CK-MB (CK-2) 3.23 Troponin I 0.025 NT-Pro-B Natriuret Pep 1500 H 1270 H 10/28/19 10/29/19 10/30/19 04:25 03:55 05:50 Creatine Kinase CK-MB (CK-2) Troponin I NT-Pro-B Natriuret Pep 1520 H 3720 H 2830 H Impressions: Chest X-Ray 10/29/19 05:00 IMPRESSION: 1. Stable emphysematous change without evidence of new cardiopulmonary process. 2. Enteric tube side port above the GE junction. Recommend advancing 5 cm. 3. Endotracheal tube tip overlies midthoracic trachea, stable. All labs, radiographs, diagnostic studies and EKGs were personally reviewed: Yes In addition, reports of radiographic and diagnostic studies were read: Yes Assessment and Plan - Diagnosis (1) Acute on chronic respiratory failure with hypoxia and hypercapnia Is this a current diagnosis for this admission?: Yes Plan: Continue furosemide 20 mg IV every 12 hours. Monitor urine output. Wean supplemental oxygen to 3 LPM, as tolerated. On LTOT at home (3 LPM). Continue albuterol/Pulmicort scheduled. Albuterol as needed. Restart Suboxone. It is noted that the patient is on Suboxone at home. Continue Solu-Medrol 40 mg IV every 12 hours. (2) Haemophilus influenzae pneumonia Qualifiers: Laterality: bilateral Lung location: unspecified part of lung Qualified Code(s): J14 - Pneumonia due to Hemophilus influenzae Is this a current diagnosis for this admission?: Yes Plan: Continue Rocephin. (3) MRSA pneumonia Qualifiers: Laterality: bilateral Lung location: unspecified part of lung Qualified Code(s): J15.212 - Pneumonia due to Methicillin resistant Staphylococcus aureus Is this a current diagnosis for this admission?: Yes Plan: Vancomycin x10 days. (4) Bipolar disorder Qualifiers: Active/Remission status: remission status unspecified Qualified Code(s): F31.9 - Bipolar disorder, unspecified Is this a current diagnosis for this admission?: Yes (5) Elevated brain natriuretic peptide (BNP) level Is this a current diagnosis for this admission?: Yes (6) COVID-19 ruled out by laboratory testing Is this a current diagnosis for this admission?: Yes (7) Type 2 diabetes mellitus Qualifiers: Diabetes mellitus adjunct faculty for medical terminology insulin use: without adjunct faculty for medical terminology use Diabetes mellitus complication status: with circulatory complication Diabetes mellitus complication detail: with other circulatory complications Qualified Code(s): E11.59 - Type 2 diabetes mellitus with other circulatory complications Is this a current diagnosis for this admission?: Yes Plan: Diabetic diet. Sliding scale insulin. Plan Summary: Okay to transfer the floor from pulmonary/critical care standpoint. Critical Time Critical Time (minutes): 30 Level of Care: ICU -: 1. The care of a critical patient is a dynamic process. This note is a loan servicing representative synopsis but static in nature. The timeframe for treatments given in order is not necessarily the actual time these treatments may have been done. 2. This patient requires critical care secondary to ongoing requirements for therapy not offered or safe outside the critical care environment. Transfer to a lower level of care will result in altered life or limb morbidity and mortality. 3. Multidisciplinary rounds completed. 4. ABCDE bundle addressed.
[2019-10-31] MEDS: BUDESONIDE NEB 0.25 MG/2 ML AMPUL NEB SCH ×2 (08:24→20:15)
[2019-10-31] MEDS: CEFTRIAXONE 1 GM/D5W RTU 1 GM/50 ML RTUPB IV SCH (09:17)
[2019-10-31] MEDS: ENOXAPARIN SODIUM INJ 40 MG/0.4 ML DISP.SYRIN SUBCUT SCH (09:18)
[2019-10-31] MEDS: PANTOPRAZOLE SODIUM 40 MG VIAL IV SCH (09:18)
[2019-10-31] MEDS: CITALOPRAM HYDROBROMIDE 20 MG TABLET PO SCH (09:19)
[2019-10-31] MEDS: METHYLPREDNISOLONE INJ 40 MG/1 ML SDV IV SCH ×2 (09:19→21:50)
[2019-10-31] MEDS: CARVEDILOL 3.125 MG TABLET PO SCH ×2 (09:19→21:50)
[2019-10-31] MEDS: FUROSEMIDE INJ/PF 20 MG/2 ML SDV IV SCH ×2 (09:19→21:50)
[2019-10-31] MEDS: AMLODIPINE BESYLATE 5 MG TABLET PO SCH (09:20)
[2019-10-31] MEDS: ROPINIROLE HCL 2 MG TABLET PO SCH (09:21)
[2019-10-31] MEDS: VANCOMYCIN HCL 750 MG in DEXTROSE 5%-WATER 250 ML IV SCH ×2 (10:48→21:49)
[2019-10-31] MEDS ORDERED: NYSTATIN 500000 UNIT/5 ML UDCUP PO PRN (13:15)
[2019-10-31] MEDS ORDERED: (PENDING PHARMACY ID) (Ipratropium/Albuterol Sulfate [Combivent Respimat 4 Gm Mdi] 1 PUFF) IH PRN (13:15)
[2019-10-31] MEDS ORDERED: (PENDING PHARMACY ID) (Ipratropium/Albuterol Sulfate [Combivent Respimat 4 Gm Mdi] 1 PUFF) IH SCH (14:00)
[2019-10-31 14:35] LABS: HEMATOCRIT 34.6 % (36.0-47.0); HEMOGLOBIN 11.3 g/dL (12.0-15.5); MEAN CORPUSCULAR HEMOGLOBIN 28.1 pg (27.0-33.4); MEAN CORPUSCULAR HGB CONC 32.8 g/dL (32.0-36.0); MEAN CORPUSCULAR VOLUME 86 fl (80-97); PLATELET COUNT 405 10^3/uL (150-450); RED BLOOD COUNT 4.02 10^6/uL (3.72-5.28); RED CELL DISTRIBUTION WIDTH 18.4 % (11.5-14.0); WHITE BLOOD COUNT 17.4 10^3/uL (4.0-10.5)
[2019-10-31 14:50] LABS: ALBUMIN 3.5 g/dL (3.5-5.0); ALKALINE PHOSPHATASE 61 U/L (38-126); ASPARTATE AMINO TRANSFERASE 21 U/L (14-36); BILIRUBIN,DIRECT 0.2 mg/dL (0.0-0.4); BILIRUBIN,TOTAL 0.5 mg/dL (0.2-1.3); BLOOD UREA NITROGEN 34 mg/dL (7-20); CHLORIDE 81 mmol/L (98-107); GLUCOSE 106 mg/dL (75-110); POTASSIUM 3.8 mmol/L (3.6-5.0); TOTAL PROTEIN 6.7 g/dL (6.3-8.2)
--- NOTE | 2019-10-31 14:56 | Progress Note ---
Provider Note Provider Note: 10/31/2019-patient is in room #430. Patient has history of COPD, bipolar disorder, congestive heart failure, hypertension. She is also a chronic smoker. Comfortably in the bed on oxygen supplementation communicating well. Denies any problems. She is on 3 L of oxygen at home. She was transferred from ICU to medical floor today. She is in the ICU after intubation in the field, Brought to the ER. Patient is successfully extubated yesterday. Presently on 3 L of oxygen pulse ox is 100%. Sputum cultures are positive for MRSA and Haemophilus influenza. She is on IV Rocephin and vancomycin at this time. Blood cultures are negative. Plan is to continue the IV antibiotic therapy at this time, to continue nebulizer treatments and oxygen supplementations. To continue home medications at this time. To continue DuoNeb nebulizations, Pulmicort. Smoking counseling was provided. Patient is also receiving IV Solu-Medrol 40 mg twice a day. Plan is to repeat the labs tomorrow. Echocardiogram was done during last admission shows EF of 60%. Also suggestive of mild diastolic heart failure. So patient has chronic diastolic heart failure. Receiving Lasix 40 mg daily at this time. In my opinion patient may stay here at least 24 to 48 hours in the hospital.
[2019-10-31 15:05] LABS: ABSOLUTE LYMPHOCYTES# (MANUAL) 0.9 10^3/uL (0.5-4.7); ABSOLUTE MONOCYTES # (MANUAL) 1.2 10^3/uL (0.1-1.4); BAND NEUTROPHILS % (MANUAL) 1 % (3-5); BASOPHILS % (MANUAL) 0 % (0-2); EOSINOPHILS % (MANUAL) 0 % (0-6); LYMPHOCYTES % (MANUAL) 5 % (13-45); MONOCYTES % (MANUAL) 7 % (3-13); SEGMENTED NEUTROPHILS % (MAN) 87 % (42-78); TOTAL CELLS COUNTED 100
[2019-10-31 15:06] LABS: ANISOCYTOSIS 2+; HYPOCHROMASIA SLIGHT; OVALOCYTES SLIGHT; PLATELET COMMENT ADEQUATE; PLATELET LARGE PRESENT
[2019-10-31 15:07] LABS: ANION GAP 5 (5-19)
[2019-10-31 15:10] LABS: CARBON DIOXIDE 44 mmol/L (22-30)
[2019-10-31] MEDS: FLUTICASONE/VILANTEROL 200-25 MCG/DOSE IH SCH (17:16)
[2019-10-31] MEDS: DOXEPIN HCL 10 MG CAPSULE PO SCH (21:50)
[2019-10-31] MEDS: ATORVASTATIN CALCIUM 40 MG TABLET PO SCH (21:50)
[2019-10-31] MEDS: BACLOFEN 10 MG TABLET PO SCH (21:51)
[2019-11-01] MEDS: ALBUTEROL SULFATE 0.083% NEB 2.5 MG/3 ML AMPUL NEB SCH ×4 (02:22→20:18)
[2019-11-01] MEDS: INSULIN REG, HUMAN 100 UNIT/ML 3 ML VIAL (PYX) SUBCUT SCH ×3 (05:32→20:16)
[2019-11-01] MEDS: LEVOTHYROXINE SODIUM 0.05 MG TABLET NG SCH (05:32)
[2019-11-01] MEDS: BUDESONIDE NEB 0.25 MG/2 ML AMPUL NEB SCH ×2 (07:59→20:18)
[2019-11-01] MEDS: CARVEDILOL 3.125 MG TABLET PO SCH ×2 (09:25→22:13)
[2019-11-01] MEDS: BACLOFEN 10 MG TABLET PO SCH ×2 (09:25→21:19)
[2019-11-01] MEDS: CITALOPRAM HYDROBROMIDE 20 MG TABLET PO SCH (09:25)
[2019-11-01] MEDS: AMLODIPINE BESYLATE 5 MG TABLET PO SCH (09:25)
[2019-11-01] MEDS: FLUTICASONE/VILANTEROL 200-25 MCG/DOSE IH SCH (09:28)
[2019-11-01] MEDS: FLUTICASONE NASAL SPRAY 50 MCG/SPRY 120 SPRAY/16 GM NASL SCH (09:28)
[2019-11-01] MEDS: ENOXAPARIN SODIUM INJ 40 MG/0.4 ML DISP.SYRIN SUBCUT SCH (09:29)
[2019-11-01] MEDS: CEFTRIAXONE 1 GM/D5W RTU 1 GM/50 ML RTUPB IV SCH (09:30)
[2019-11-01] MEDS: ROPINIROLE HCL 2 MG TABLET PO SCH (09:30)
[2019-11-01] MEDS: METHYLPREDNISOLONE INJ 40 MG/1 ML SDV IV SCH (09:35)
[2019-11-01] MEDS: PANTOPRAZOLE SODIUM 40 MG VIAL IV SCH (09:35)
[2019-11-01] MEDS: FUROSEMIDE INJ/PF 20 MG/2 ML SDV IV SCH (09:35)
--- NOTE | 2019-11-01 09:55 | PDOC PROGRESS REPORT ---
Subjective Progress Note for:: 11/01/19 Subjective:: 10/31/2019-patient is in room #430. Patient has history of COPD, bipolar disorder, congestive heart failure, hypertension. She is also a chronic smoker. Comfortably in the bed on oxygen supplementation communicating well. Denies any problems. She is on 3 L of oxygen at home. She was transferred from ICU to medical floor today. She is in the ICU after intubation in the field, Brought to the ER. Patient is successfully extubated yesterday. Presently on 3 L of oxygen pulse ox is 100%. Sputum cultures are positive for MRSA and Haemophilus influenza. She is on IV Rocephin and vancomycin at this time. Blood cultures are negative. Plan is to continue the IV antibiotic therapy at this time, to continue nebulizer treatments and oxygen supplementations. To continue home medications at this time. To continue DuoNeb nebulizations, Pulmicort. Smoking counseling was provided. Patient is also receiving IV Solu-Medrol 40 mg twice a day. Plan is to repeat the labs tomorrow. Echocardiogram was done during last admission shows EF of 60%. Also suggestive of mild diastolic heart failure. So patient has chronic diastolic heart failure. Receiving Lasix 40 mg daily at this time. In my opinion patient may stay here at least 24 to 48 hours in the hospital. 11/01/2019-patient is comfortably in the bed communicating well. Not in distress. Only 3 L of oxygen at this time. Requesting Suboxone. Blood pressures are stable. And is receiving IV Rocephin, vancomycin for MRSA and haemophilus influenza in sputum. Temp is 97.9. Reason For Visit: COPD EXACERBATION WITH HYPOXIA Physical Exam Vital Signs: Temp Pulse Resp BP Pulse Ox 98.0 F 72 16 133/62 H 93 11/01/19 07:45 11/01/19 08:01 11/01/19 08:01 11/01/19 07:45 11/01/19 08:01 Intake & Output 10/31/19 11/01/19 11/02/19 06:59 06:59 06:59 Intake Total 925 1250 Output Total 4679 390 Balance -3720 860 Weight 54.7 kg General appearance: PRESENT: no acute distress, cooperative, thin Eye exam: PRESENT: PERRLA Ear exam: PRESENT: normal external ear exam Mouth exam: PRESENT: neck supple Respiratory exam: PRESENT: decreased breath sounds Cardiovascular exam: PRESENT: RRR. ABSENT: diastolic murmur, rubs, systolic murmur GI/Abdominal exam: PRESENT: normal bowel sounds, soft. ABSENT: distended, guarding, mass, organolmegaly, rebound, tenderness Rectal exam: PRESENT: deferred Extremities exam: PRESENT: full ROM. ABSENT: calf tenderness, clubbing, pedal edema Neurological exam: PRESENT: alert, awake, oriented to person, oriented to place, oriented to time, oriented to situation, CN II-XII grossly intact. ABSENT: motor sensory deficit Psychiatric exam: PRESENT: appropriate affect, normal mood. ABSENT: homicidal ideation, suicidal ideation Results Laboratory Results: 10/31/19 13:50 10/31/19 22:06 10/31/19 10/31/19 10/31/19 13:50 13:50 22:06 WBC 17.4 H RBC 4.02 Hgb 11.3 L Hct 34.6 L MCV 86 MCH 28.1 MCHC 32.8 RDW 18.4 H Plt Count 405 Seg Neutrophils % Not Reportable Sodium 129.8 L Potassium 3.8 Chloride 81 L Carbon Dioxide 44 H* Anion Gap 5 BUN 34 H Creatinine 0.67 0.67 Est GFR ( Amer) > 60 > 60 Glucose 106 Calcium 9.0 Magnesium 1.9 Total Bilirubin 0.5 AST 21 Alkaline Phosphatase 61 Total Protein 6.7 Albumin 3.5 10/26/19 17:00 Blood Blood Culture - Final NO GROWTH IN 5 DAYS 10/26/19 11:30 Blood Blood Culture - Final NO GROWTH IN 5 DAYS 10/26/19 10/26/19 10/27/19 11:30 11:30 01:50 Creatine Kinase 182 H CK-MB (CK-2) 3.23 Troponin I 0.025 NT-Pro-B Natriuret Pep 1500 H 1270 H 10/28/19 10/29/19 10/30/19 04:25 03:55 05:50 Creatine Kinase CK-MB (CK-2) Troponin I NT-Pro-B Natriuret Pep 1520 H 3720 H 2830 H Impressions: Chest X-Ray 10/29/19 05:00 IMPRESSION: 1. Stable emphysematous change without evidence of new cardiopulmonary process. 2. Enteric tube side port above the GE junction. Recommend advancing 5 cm. 3. Endotracheal tube tip overlies midthoracic trachea, stable. Assessment and Plan - Diagnosis (1) Acute and chronic respiratory failure with hypercapnia Is this a current diagnosis for this admission?: Yes Plan: 11/01/[id number]-old female with history of COPD on 3 L of oxygen at home, chronic smoker called EMS with complaining of shortness of breath she was intu bated on the way to the hospital from the ER she was admitted to ICU and as she was successfully extubated 2 days ago. Sputum culture came back positive for MRSA, H influenza presently on IV Rocephin, vancomycin. Afebrile. Blood cultures are negative. Pulse ox is 93% on 4 L this morning. Receiving Lasix 20 mg IV twice daily, Zully Pulmicort. On examination chest bilateral entry was severely decreased no wheezing no crepitations present. Plan is to change IV Lasix to p.o. Lasix 40 mg daily, Solu-Medrol dose is decreased from 40 twice daily to 40mg IV once a day. (2) CHF (congestive heart failure) Qualifiers: Is this a current diagnosis for this admission?: No Plan: 11/01/2019-patient has history of chronic diastolic heart failure. Last echocardiogram shows EF of 60% and grade 1 to grade 4 diastolic dysfunction. Presently on Lasix 20 mg IV twice a day plan is to change the dose to 40 mg p.o. daily. To watch for the fluid overload. (3) MRSA pneumonia Qualifiers: Laterality: bilateral Lung location: unspecified part of lung Qualified Code(s): J15.212 - Pneumonia due to Methicillin resistant Staphylococcus aureus Is this a current diagnosis for this admission?: Yes Plan: Vancomycin x10 days. 11/01/2019-sputum culture is positive for MRSA and IV vancomycin. (4) Haemophilus influenzae pneumonia Qualifiers: Laterality: bilateral Lung location: unspecified part of lung Qualified Code(s): J14 - Pneumonia due to Hemophilus influenzae Is this a current diagnosis for this admission?: Yes Plan: Continue Rocephin. (5) Type 2 diabetes mellitus Qualifiers: Diabetes mellitus exterminator insulin use: without exterminator use Diabetes mellitus complication status: with circulatory complication Diabetes mellitus complication detail: with other circulatory complications Qualified Code(s): E11.59 - Type 2 diabetes mellitus with other circulatory complications Is this a current diagnosis for this admission?: No Plan: Diabetic diet. Sliding scale insulin. 11/01/2019-05/03/2019-latest blood sugar is 107. To continue insulin sliding scale at this time. (6) COVID-19 ruled out by laboratory testing Is this a current diagnosis for this admission?: Yes (7) Bipolar disorder Qualifiers: Active/Remission status: remission status unspecified Qualified Code(s): F31.9 - Bipolar disorder, unspecified Is this a current diagnosis for this admission?: Yes Plan: Home medications include doxepin 20 mg p.o. nightly; Celexa 20 mg p.o. daily. (8) Elevated brain natriuretic peptide (BNP) level Is this a current diagnosis for this admission?: Yes Plan: Furosemide 20 mg IV every 12 hours. 2D echo (01/21/2018): Grade 1 diastolic dysfunction. 05/03/2019-patient is on Lasix 20 mg IV twice a day plan is to discontinue IV Lasix and started on Lasix 40 mg p.o. daily. (9) Chronic pain syndrome Is this a current diagnosis for this admission?: No Plan: 11/01/2019-patient has history of chronic pain syndrome on Suboxone. - Time Anticipated discharge: Home Within: within 72 hours
[2019-11-01] MEDS ORDERED: NALOXONE HCL SL SCH (10:00)
[2019-11-01] MEDS ORDERED: BUPRENORPHINE HCL SL SCH (10:00)
[2019-11-01] MEDS ORDERED: [UNRECOGNIZED DRUG - OTHER] SL SCH (10:00)
[2019-11-01] MEDS: FUROSEMIDE 40 MG TABLET PO SCH (10:05)
[2019-11-01] MEDS: VANCOMYCIN HCL 750 MG in DEXTROSE 5%-WATER 250 ML IV SCH ×2 (10:15→21:19)
[2019-11-01] MEDS: ACETAMINOPHEN 325 MG TABLET PO PRN (20:15)
[2019-11-01] MEDS: DOXEPIN HCL 10 MG CAPSULE PO SCH (21:19)
[2019-11-01] MEDS: ATORVASTATIN CALCIUM 40 MG TABLET PO SCH (21:19)
[2019-11-02] MEDS: INSULIN REG, HUMAN 100 UNIT/ML 3 ML VIAL (PYX) SUBCUT SCH ×4 (01:06→17:01)
[2019-11-02] MEDS: ALBUTEROL SULFATE 0.083% NEB 2.5 MG/3 ML AMPUL NEB SCH ×4 (02:06→20:21)
[2019-11-02] MEDS: LEVOTHYROXINE SODIUM 0.05 MG TABLET NG SCH (06:08)
[2019-11-02 06:55] LABS: HEMATOCRIT 35.8 % (36.0-47.0); HEMOGLOBIN 11.6 g/dL (12.0-15.5); MEAN CORPUSCULAR HGB CONC 32.5 g/dL (32.0-36.0); MEAN CORPUSCULAR VOLUME 86 fl (80-97); PLATELET COUNT 375 10^3/uL (150-450); RED BLOOD COUNT 4.15 10^6/uL (3.72-5.28); RED CELL DISTRIBUTION WIDTH 18.3 % (11.5-14.0); WHITE BLOOD COUNT 18.7 10^3/uL (4.0-10.5)
[2019-11-02 07:15] LABS: ABSOLUTE MONOCYTES # (MANUAL) 1.5 10^3/uL (0.1-1.4); BAND NEUTROPHILS % (MANUAL) 5 % (3-5); BASOPHILS % (MANUAL) 0 % (0-2); EOSINOPHILS % (MANUAL) 2 % (0-6); LYMPHOCYTES % (MANUAL) 16 % (13-45); MONOCYTES % (MANUAL) 8 % (3-13); SEGMENTED NEUTROPHILS % (MAN) 69 % (42-78); TOTAL CELLS COUNTED 100
[2019-11-02 07:16] LABS: ANISOCYTOSIS 2+; OVALOCYTES 1+; POLYCHROMASIA 1+
[2019-11-02 07:17] LABS: PLATELET COMMENT ADEQUATE
[2019-11-02 07:23] LABS: ALBUMIN 3.4 g/dL (3.5-5.0); ALKALINE PHOSPHATASE 54 U/L (38-126); ASPARTATE AMINO TRANSFERASE 17 U/L (14-36); BILIRUBIN,DIRECT 0.1 mg/dL (0.0-0.4); BILIRUBIN,TOTAL 0.5 mg/dL (0.2-1.3); BLOOD UREA NITROGEN 35 mg/dL (7-20); CALCIUM 8.7 mg/dL (8.4-10.2); CHLORIDE 82 mmol/L (98-107); GLUCOSE 82 mg/dL (75-110); POTASSIUM 3.4 mmol/L (3.6-5.0); TOTAL PROTEIN 6.4 g/dL (6.3-8.2)
[2019-11-02] MEDS: BUDESONIDE NEB 0.25 MG/2 ML AMPUL NEB SCH ×2 (07:31→20:21)
[2019-11-02 07:32] LABS: ANION GAP 4 (5-19)
[2019-11-02 07:35] LABS: CARBON DIOXIDE 44 mmol/L (22-30)
[2019-11-02] MEDS: ACETAMINOPHEN 325 MG TABLET PO PRN (08:45)
[2019-11-02] MEDS: NALOXONE SL SCH (09:37)
[2019-11-02] MEDS: BUPRENORPHINE SL SCH (09:37)
--- NOTE | 2019-11-02 09:39 | PDOC PROGRESS REPORT ---
Subjective Progress Note for:: 11/02/19 Subjective:: 10/31/2019-patient is in room #430. Patient has history of COPD, bipolar disorder, congestive heart failure, hypertension. She is also a chronic smoker. Comfortably in the bed on oxygen supplementation communicating well. Denies any problems. She is on 3 L of oxygen at home. She was transferred from ICU to medical floor today. She is in the ICU after intubation in the field, Brought to the ER. Patient is successfully extubated yesterday. Presently on 3 L of oxygen pulse ox is 100%. Sputum cultures are positive for MRSA and Haemophilus influenza. She is on IV Rocephin and vancomycin at this time. Blood cultures are negative. Plan is to continue the IV antibiotic therapy at this time, to continue nebulizer treatments and oxygen supplementations. To continue home medications at this time. To continue DuoNeb nebulizations, Pulmicort. Smoking counseling was provided. Patient is also receiving IV Solu-Medrol 40 mg twice a day. Plan is to repeat the labs tomorrow. Echocardiogram was done during last admission shows EF of 60%. Also suggestive of mild diastolic heart failure. So patient has chronic diastolic heart failure. Receiving Lasix 40 mg daily at this time. In my opinion patient may stay here at least 24 to 48 hours in the hospital. 11/01/2019-patient is comfortably in the bed communicating well. Not in distress. Only 3 L of oxygen at this time. Requesting Suboxone. Blood pressures are stable. And is receiving IV Rocephin, vancomycin for MRSA and haemophilus influenza in sputum. Temp is 97.9. 11/0127-60-vwvi-old female with history of COPD on 3 L of oxygen at home admitted with COPD exacerbation status post intubation and extubation. She came to the medical floor yesterday from ICU in stable condition. Blood pressure is stable this morning pulse ox is 95% 3 L. Chemistry shows PCO2 [address] her on as needed BiPAP. To restart Suboxone. WBC count is 18,700. Sputum culture is positive for MRSA and H influenza plan to continue IV Rocephin and IV vancomycin. Reason For Visit: COPD EXACERBATION WITH HYPOXIA Physical Exam Vital Signs: Temp Pulse Resp BP Pulse Ox 97.7 F 89 16 131/60 H 96 11/02/19 03:48 11/02/19 07:31 11/02/19 07:31 11/02/19 03:48 11/02/19 07:31 Intake & Output 11/01/19 11/02/19 11/03/19 06:59 06:59 06:59 Intake Total 1250 550 Output Total 390 Balance 860 550 Weight 51.8 kg General appearance: PRESENT: no acute distress, cooperative, well-developed Head exam: PRESENT: atraumatic Eye exam: PRESENT: PERRLA Mouth exam: PRESENT: neck supple Teeth exam: PRESENT: poor dentation Neck exam: ABSENT: carotid bruit, JVD, lymphadenopathy, thyromegaly Respiratory exam: PRESENT: decreased breath sounds Cardiovascular exam: PRESENT: RRR. ABSENT: diastolic murmur, rubs, systolic murmur GI/Abdominal exam: PRESENT: normal bowel sounds, soft. ABSENT: distended, guarding, mass, organolmegaly, rebound, tenderness Rectal exam: PRESENT: deferred Extremities exam: PRESENT: full ROM. ABSENT: calf tenderness, clubbing, pedal edema Neurological exam: PRESENT: alert, awake, oriented to person, oriented to place, oriented to time, oriented to situation, CN II-XII grossly intact. ABSENT: motor sensory deficit Psychiatric exam: PRESENT: appropriate affect, normal mood. ABSENT: homicidal ideation, suicidal ideation Results Laboratory Results: 11/02/19 06:33 11/02/19 06:33 11/02/19 11/02/19 06:33 06:33 WBC 18.7 H RBC 4.15 Hgb 11.6 L Hct 35.8 L MCV 86 MCH 28.0 MCHC 32.5 RDW 18.3 H Plt Count 375 Seg Neutrophils % Not Reportable Sodium 129.7 L Potassium 3.4 L Chloride 82 L Carbon Dioxide 44 H* Anion Gap 4 L BUN 35 H Creatinine 0.64 Est GFR ( Amer) > 60 Glucose 82 Calcium 8.7 Magnesium 2.0 Total Bilirubin 0.5 AST 17 Alkaline Phosphatase 54 Total Protein 6.4 Albumin 3.4 L 10/29/19 12:06 Catheter Tip - Central Line Catheter Tip Culture - Final NO GROWTH 3 DAYS 10/26/19 10/26/19 10/27/19 11:30 11:30 01:50 Creatine Kinase 182 H CK-MB (CK-2) 3.23 Troponin I 0.025 NT-Pro-B Natriuret Pep 1500 H 1270 H 10/28/19 10/29/19 10/30/19 04:25 03:55 05:50 Creatine Kinase CK-MB (CK-2) Troponin I NT-Pro-B Natriuret Pep 1520 H 3720 H 2830 H Impressions: Chest X-Ray 10/29/19 05:00 IMPRESSION: 1. Stable emphysematous change without evidence of new cardiopulmonary process. 2. Enteric tube side port above the GE junction. Recommend advancing 5 cm. 3. Endotracheal tube tip overlies midthoracic trachea, stable. Assessment and Plan - Diagnosis (1) Acute and chronic respiratory failure with hypercapnia Is this a current diagnosis for this admission?: Yes Plan: 11/01/[id number]-lnun-old female with history of COPD on 3 L of oxygen at home, chronic smoker called EMS with complaining of shortness of breath she was intubated on the way to the hospital from the ER she was admitted to ICU and as she was successfully extubated 2 days ago. Sputum culture came back positive for MRSA, H influenza presently on IV Rocephin, vancomycin. Afebrile. Blood cultures are negative. Pulse ox is 93% on 4 L this morning. Receiving Lasix 20 mg IV twice daily, DuoNeb, Pulmicort. On examination chest bilateral entry was severely decreased no wheezing no crepitations present. Plan is to change IV Lasix to p.o. Lasix 40 mg daily, Solu-Medrol dose is decreased from 40 twice daily to 40mg IV once a day. 11/02/[id number]-hrdb-old female with history of COPD on 3 L of oxygen admitted with acute on chronic respiratory failure with hypercapnia. Status post intubation extubation. Today PCO2 is 44. Will place her on BiPAP on as-needed basis. Sputum culture is positive for H. influenzae and MRSA presently on IV Rocephin and vancomycin. Plan is to continue the antibiotics for today. (2) CHF (congestive heart failure) Qualifiers: Is this a current diagnosis for this admission?: No Plan: 11/01/2019-patient has history of chronic diastolic heart failure. Last echocardiogram shows EF of 60% and grade 1 to grade 4 diastolic dysfunction. Presently on Lasix 20 mg IV twice a day plan is to change the dose to 40 mg p.o. daily. To watch for the fluid overload. (3) MRSA pneumonia Qualifiers: Laterality: bilateral Lung location: unspecified part of lung Qualified Code(s): J15.212 - Pneumonia due to Methicillin resistant Staphylococcus aureus Is this a current diagnosis for this admission?: Yes Plan: Vancomycin x10 days. 11/01/2019-sputum culture is positive for MRSA and IV vancomycin. (4) Haemophilus influenzae pneumonia Qualifiers: Laterality: bilateral Lung location: unspecified part of lung Qualified Code(s): J14 - Pneumonia due to Hemophilus influenzae Is this a current diagnosis for this admission?: Yes Plan: Continue Rocephin. (5) Type 2 diabetes mellitus Qualifiers: Diabetes mellitus intermediate project manager insulin use: without intermediate project manager use Diabetes mellitus complication status: with circulatory complication Diabetes mellitus complication detail: with other circulatory complications Qualified Code(s): E11.59 - Type 2 diabetes mellitus with other circulatory complications Is this a current diagnosis for this admission?: No Plan: Diabetic diet. Sliding scale insulin. 11/01/2019-05/03/2019-latest blood sugar is 107. To continue insulin sliding scale at this time. (6) COVID-19 ruled out by laboratory testing Is this a current diagnosis for this admission?: Yes Plan: 11/02/2019-COVID was tested and negative. (7) Bipolar disorder Qualifiers: Active/Remission status: remission status unspecified Qualified Code(s): F31.9 - Bipolar disorder, unspecified Is this a current diagnosis for this admission?: Yes (8) Elevated brain natriuretic peptide (BNP) level Is this a current diagnosis for this admission?: Yes Plan: Furosemide 20 mg IV every 12 hours. 2D echo (01/21/2018): Grade 1 diastolic dysfunction. 05/03/2019-patient is on Lasix 20 mg IV twice a day plan is to discontinue IV Lasix and started on Lasix 40 mg p.o. daily. (9) Chronic pain syndrome Is this a current diagnosis for this admission?: No Plan: 11/01/2019-patient has history of chronic pain syndrome on Suboxone. - Time Anticipated discharge: Home Within: within 48 hours
[2019-11-02] MEDS: ROPINIROLE HCL 2 MG TABLET PO SCH (09:45)
[2019-11-02] MEDS: FUROSEMIDE 40 MG TABLET PO SCH (09:45)
[2019-11-02] MEDS: PREDNISONE 10 MG TABLET PO SCH ×2 (09:45→17:05)
[2019-11-02] MEDS: BACLOFEN 10 MG TABLET PO SCH ×2 (09:45→21:44)
[2019-11-02] MEDS: CITALOPRAM HYDROBROMIDE 20 MG TABLET PO SCH (09:45)
[2019-11-02] MEDS: AMLODIPINE BESYLATE 5 MG TABLET PO SCH (09:45)
[2019-11-02] MEDS: CARVEDILOL 3.125 MG TABLET PO SCH ×2 (09:45→21:46)
[2019-11-02] MEDS: ENOXAPARIN SODIUM INJ 40 MG/0.4 ML DISP.SYRIN SUBCUT SCH (09:46)
[2019-11-02] MEDS: FLUTICASONE NASAL SPRAY 50 MCG/SPRY 120 SPRAY/16 GM NASL SCH (09:47)
[2019-11-02] MEDS: CEFTRIAXONE 1 GM/D5W RTU 1 GM/50 ML RTUPB IV SCH (09:47)
[2019-11-02] MEDS: FLUTICASONE/VILANTEROL 200-25 MCG/DOSE IH SCH (09:47)
[2019-11-02] MEDS ORDERED: METHYLPREDNISOLONE INJ 40 MG/1 ML SDV IV SCH (10:00)
[2019-11-02] MEDS: VANCOMYCIN HCL 750 MG in DEXTROSE 5%-WATER 250 ML IV SCH ×2 (10:44→21:47)
[2019-11-02] MEDS: PANTOPRAZOLE SODIUM 40 MG TABLET.DR PO SCH (17:05)
[2019-11-02] MEDS: ATORVASTATIN CALCIUM 40 MG TABLET PO SCH (21:43)
[2019-11-02] MEDS: DOXEPIN HCL 10 MG CAPSULE PO SCH (21:46)
[2019-11-03] MEDS: ALBUTEROL SULFATE 0.083% NEB 2.5 MG/3 ML AMPUL NEB SCH ×3 (02:42→13:41)
[2019-11-03] MEDS: PANTOPRAZOLE SODIUM 40 MG TABLET.DR PO SCH (06:15)
[2019-11-03] MEDS: LEVOTHYROXINE SODIUM 0.05 MG TABLET NG SCH (06:15)
[2019-11-03] MEDS: INSULIN REG, HUMAN 100 UNIT/ML 3 ML VIAL (PYX) SUBCUT SCH ×3 (06:17→12:21)
[2019-11-03] MEDS: BUDESONIDE NEB 0.25 MG/2 ML AMPUL NEB SCH (08:05)
[2019-11-03] MEDS: PREDNISONE 10 MG TABLET PO SCH (10:03)
[2019-11-03] MEDS: FUROSEMIDE 40 MG TABLET PO SCH (10:03)
[2019-11-03] MEDS: AMLODIPINE BESYLATE 5 MG TABLET PO SCH (10:03)
[2019-11-03] MEDS: CITALOPRAM HYDROBROMIDE 20 MG TABLET PO SCH (10:03)
[2019-11-03] MEDS: BUPRENORPHINE SL SCH (10:03)
[2019-11-03] MEDS: CARVEDILOL 3.125 MG TABLET PO SCH (10:03)
[2019-11-03] MEDS: NALOXONE SL SCH (10:03)
[2019-11-03] MEDS: BACLOFEN 10 MG TABLET PO SCH (10:04)
[2019-11-03] MEDS: ROPINIROLE HCL 2 MG TABLET PO SCH (10:04)
[2019-11-03] MEDS: FLUTICASONE/VILANTEROL 200-25 MCG/DOSE IH SCH (10:07)
[2019-11-03] MEDS: ENOXAPARIN SODIUM INJ 40 MG/0.4 ML DISP.SYRIN SUBCUT SCH (10:07)
[2019-11-03] MEDS: FLUTICASONE NASAL SPRAY 50 MCG/SPRY 120 SPRAY/16 GM NASL SCH (10:08)
--- NOTE | 2019-11-03 11:00 | PDOC DISCHARGE SUMMARY ---
Impression - Admit/DC Date/PCP Admission Date/Primary Care Provider: 10/26/19 12:41 OCTAVIO MOLINA Discharge Date: 11/03/19 - Discharge Diagnosis (1) Acute and chronic respiratory failure with hypercapnia Is this a current diagnosis for this admission?: Yes (2) CHF (congestive heart failure) Is this a current diagnosis for this admission?: No (3) MRSA pneumonia Is this a current diagnosis for this admission?: Yes (4) Haemophilus influenzae pneumonia Is this a current diagnosis for this admission?: Yes (5) Type 2 diabetes mellitus Is this a current diagnosis for this admission?: No (6) COVID-19 ruled out by laboratory testing Is this a current diagnosis for this admission?: Yes (7) Bipolar disorder Is this a current diagnosis for this admission?: Yes (8) Elevated brain natriuretic peptide (BNP) level Is this a current diagnosis for this admission?: Yes (9) Chronic pain syndrome Is this a current diagnosis for this admission?: No - Assessment Summary: (1) Acute and chronic respiratory failure with hypercapnia Is this a current diagnosis for this admission?: Yes Plan: 11/01/[id number]-zmyg-old female with history of COPD on 3 L of oxygen at home, chronic smoker called EMS with complaining of shortness of breath she was intubated on the way to the hospital from the ER she was admitted to ICU and as she was successfully extubated 2 days ago. Sputum culture came back positive for MRSA, H influenza presently on IV Rocephin, vancomycin. Afebrile. Blood cultures are negative. Pulse ox is 93% on 4 L this morning. Receiving Lasix 20 mg IV twice daily, Nivia Andrea. On examination chest bilateral entry was severely decreased no wheezing no crepitations present. Plan is to change IV Lasix to p.o. Lasix 40 mg daily, Solu-Medrol dose is decreased from 40 twice daily to 40mg IV once a day. 11/02/[id number]-jykc-old female with history of COPD on 3 L of oxygen admitted with acute on chronic respiratory failure with hypercapnia. Status post intubation extubation. Today PCO2 is 44. Will place her on BiPAP on as-needed basis. Sputum culture is positive for H. influenzae and MRSA presently on IV Rocephin and vancomycin. Plan is to continue the antibiotics for today. 11/03/2019-patient is doing well today. Comfortably in the bed communicating well. She uses 3 L of oxygen at home pulse ox this morning is 94% on 3 L. On examination chest bilateral entry was decreased no wheezing no crepitations. Sputum culture is positive for MRSA and H influenza, blood cultures are negative. Patient received IV ceftriaxone and vancomycin plan is to discontinue IV antibiotics today and to discharge her on oral doxycycline 100 mg p.o. twice daily for 7 days. Patient agreed with the discharge plan I strongly advised her to quit smoking. (2) CHF (congestive heart failure) Qualifiers: Is this a current diagnosis for this admission?: No Plan: 11/01/2019-patient has history of chronic diastolic heart failure. Last echocardiogram shows EF of 60% and grade 1 to grade 4 diastolic dysfunction. Presently on Lasix 20 mg IV twice a day plan is to change the dose to 40 mg p.o. daily. To watch for the fluid overload. 05/05/2019-patient has a chronic diastolic heart failure. Receiving Lasix 40 daily. Patient is advised to continue lasix at home. (3) MRSA pneumonia Qualifiers: Laterality: bilateral Lung location: unspecified part of lung Qualified Code(s): J15.212 - Pneumonia due to Methicillin resistant Staphylococcus aureus Is this a current diagnosis for this admission?: Yes Plan: Vancomycin x10 days. 11/01/2019-sputum culture is positive for MRSA and IV vancomycin. 11/03/2019-sputum culture is positive for MRSA received IV vancomycin. Blood cultures are negative plan is to discontinue IV vancomycin today given a prescription for doxycycline 100 mg p.o. daily for 1 week. (4) Haemophilus influenzae pneumonia Qualifiers: Laterality: bilateral Lung location: unspecified part of lung Qualified Code(s): J14 - Pneumonia due to Hemophilus influenzae Is this a current diagnosis for this admission?: Yes Plan: Continue Rocephin. 11/03/2019-patient is afebrile blood pressure stable blood cultures are negative started on doxycycline 100 mg p.o. twice daily. IV Rocephin is discontinued. (5) Type 2 diabetes mellitus Qualifiers: Diabetes mellitus meterman insulin use: without meterman use Diabetes mellitus complication status: with circulatory complication Diabetes mellitus complication detail: with other circulatory complications Qualified Code(s): E11.59 - Type 2 diabetes mellitus with other circulatory complications Is this a current diagnosis for this admission?: No Plan: Diabetic diet. Sliding scale insulin. 11/01/2019-05/03/2019-latest blood sugar is 107. To continue insulin sliding scale at this time. 11/03/2019-blood sugar this morning is 90. Patient is going home on p.o. prednisone 10 mg p.o. twice daily for 5 days. In my opinion no need for diabetic medications at home. (6) COVID-19 ruled out by laboratory testing Is this a current diagnosis for this admission?: Yes Plan: 11/02/2019-COVID was tested and negative. (7) Bipolar disorder Qualifiers: Active/Remission status: remission status unspecified Qualified Code(s): F31.9 - Bipolar disorder, unspecified Is this a current diagnosis for this admission?: Yes (8) Elevated brain natriuretic peptide (BNP) level Is this a current diagnosis for this admission?: Yes Plan: Furosemide 20 mg IV every 12 hours. 2D echo (01/21/2018): Grade 1 diastolic dysfunction. 11/01/2019-patient is on Lasix 20 mg IV twice a day plan is to discontinue IV Lasix and started on Lasix 40 mg p.o. daily. (9) Chronic pain syndrome Is this a current diagnosis for this admission?: No Plan: 11/01/2019-patient has history of chronic pain syndrome on Suboxone. - Additional Information Resuscitation Status: Full Code Discharge Diet: Diabetic Discharge Activity: Activity As Tolerated, Balance Activity w/Rest, Weigh Daily Referrals: QIAN MCGEE, [employer] [Primary Care Provider] - Follow up as needed Prescriptions: Prednisone [Deltasone 10 mg Tablet] 10 mg PO BID 5 Days #10 tablet Doxycycline Hyclate 100 mg PO BID 7 Days #14 tablet.dr Chente Medications: Baclofen [Baclofen 10 mg Tablet] 5 mg PO Q12 01/20/18 Buprenorphine HCl/Naloxone HCl [Suboxone 8 mg-2 mg Sl Film] 2.5 film SL DAILY MDD 3 FILMS 01/20/18 Ipratropium/Albuterol Sulfate [Combivent Respimat 4 gm Mdi] 1 puff IH Q6HP PRN MDD 6 PUFFS 05/03/18 Levothyroxine Sodium [Synthroid 0.05 mg Tablet] 50 mcg PO Q6AM 01/18/19 Ropinirole HCl [Requip 2 mg Tablet] 2 mg PO DAILY 05/03/18 Albuterol Sulfate [Ventolin Hfa 8 gm Mdi] 2 puff IH Q4HP PRN 08/20/19 Amlodipine Besylate [Norvasc 5 mg Tablet] 5 mg PO DAILY 08/20/19 Atorvastatin Calcium [Lipitor 40 mg Tablet] 40 mg PO QHS 08/20/19 Carvedilol [Coreg 3.125 mg Tablet] 3.125 mg PO Q12 08/20/19 Citalopram Hydrobromide [Celexa 20 mg Tablet] 20 mg PO DAILY 08/20/19 Doxepin HCl [Sinequan 10 mg Capsule] 20 mg PO QHS 08/20/19 Fluticasone Propionate [Flonase Nasal [place] 50 Mcg/[place] 16 gm] 1 spray NASL DAILY 08/20/19 Furosemide [Lasix 40 mg Tablet] 40 mg PO QAM 08/20/19 Albuterol Sulfate [Ventolin 0.083% Neb 2.5 mg/3 mL Ampul] 3 ml NEB RTTID 09/22/19 Budesonide/Formoterol Fumarate [Symbicort HFA 160-4.5 mcg Inhaler 6 gm] 2 puff IH BID 09/22/19 Ipratropium/Albuterol Sulfate [Combivent Respimat 4 gm Mdi] 1 puff IH QID 09/22/19 Nystatin [Mycostatin 500,000 Unit/5 ml Susp Udcup] 5 ml PO QIDP PRN 09/22/19 Doxycycline Hyclate 100 mg PO BID 7 Days #14 tablet. 11/03/19 Prednisone [Deltasone 10 mg Tablet] 10 mg PO BID 5 Days #10 tablet 11/03/19 History of Present Illiness History of Present Illness: PIEDAD GILES is a 64 year old female 10/31/2019-patient is in room #430. Patient has history of COPD, bipolar disorder, congestive heart failure, hypertension. She is also a chronic smoker. Comfortably in the bed on oxygen supplementation communicating well. Denies any problems. She is on 3 L of oxygen at home. She was transferred from ICU to medical floor today. She is in the ICU after intubation in the field, Brought to the ER. Patient is successfully extubated yesterday. Presently on 3 L of oxygen pulse ox is 100%. Sputum cultures are positive for MRSA and Haemophilus influenza. She is on IV Rocephin and vancomycin at this time. Blood cultures are negative. Plan is to continue the IV antibiotic therapy at this time, to continue nebulizer treatments and oxygen supplementations. To continue home medications at this time. To continue DuoNeb nebulizations, Pulmicort. Smoking counseling was provided. Patient is also receiving IV Solu-Medrol 40 mg twice a day. Plan is to repeat the labs tomorrow. Echocardiogram was done during last admission shows EF of 60%. Also suggestive of mild diastolic heart failure. So patient has chronic diastolic heart failure. Receiving Lasix 40 mg daily at this time. In my opinion patient may stay here at least 24 to 48 hours in the hospital. Hospital Course Hospital Course: 10/31/2019-patient is in room #430. Patient has history of COPD, bipolar disorder, congestive heart failure, hypertension. She is also a chronic smoker. Comfortably in the bed on oxygen supplementation communicating well. Denies any problems. She is on 3 L of oxygen at home. She was transferred from ICU to medical floor today. She is in the ICU after intubation in the field, Brought to the ER. Patient is successfully extubated yesterday. Presently on 3 L of oxygen pulse ox is 100%. Sputum cultures are positive for MRSA and Haemophilus influenza. She is on IV Rocephin and vancomycin at this time. Blood cultures are negative. Plan is to continue the IV antibiotic therapy at this time, to continue nebulizer treatments and oxygen supplementations. To continue home medications at this time. To continue DuoNeb nebulizations, Pulmicort. Smoking counseling was provided. Patient is also receiving IV Solu-Medrol 40 mg twice a day. Plan is to repeat the labs tomorrow. Echocardiogram was done during last admission shows EF of 60%. Also suggestive of mild diastolic heart failure. So patient has chronic diastolic heart failure. Receiving Lasix 40 mg daily at this time. In my opinion patient may stay here at least 24 to 48 hours in the hospital. 11/01/2019-patient is comfortably in the bed communicating well. Not in distress. Only 3 L of oxygen at this time. Requesting Suboxone. Blood pressures are stable. And is receiving IV Rocephin, vancomycin for MRSA and haemophilus influenza in sputum. Temp is 97.9. 11/0102-71-zjxy-old female with history of COPD on 3 L of oxygen at home admitted with COPD exacerbation status post intubation and extubation. She came to the medical floor yesterday from ICU in stable condition. Blood pressure is stable this morning pulse ox is 95% 3 L. Chemistry shows PCO2 [address] her on as needed BiPAP. To restart Suboxone. WBC count is 18,700. Sputum culture is positive for MRSA and H influenza plan to continue IV Rocephin and IV vancomycin. 11/03/[id number]-rwbu-old female history of COPD secondary to smoking on 3 L of oxygen admitted for respiratory failure with hypercapnia status post intubation and extubation. Blood cultures are negative. Sputum culture is positive for M RSA and H influenza treated with IV Rocephin, IV vancomycin. Patient is afebrile blood pressures are stable plan is to discharge her home on doxycycline today. Physical Exam Vital Signs: Temp Pulse Resp BP Pulse Ox 98.1 F 65 15 114/50 L 92 11/03/19 07:55 11/03/19 08:05 11/03/19 08:05 11/03/19 07:55 11/03/19 08:05 Intake & Output 11/02/19 11/03/19 11/04/19 06:59 06:59 06:59 Intake Total 550 550 Balance 550 550 Weight 51.8 kg 56.8 kg 56.8 kg General appearance: PRESENT: no acute distress, morbidly obese, well-developed Head exam: PRESENT: atraumatic Eye exam: PRESENT: PERRLA Mouth exam: PRESENT: neck supple Teeth exam: PRESENT: poor dentation Neck exam: ABSENT: carotid bruit, JVD, lymphadenopathy, thyromegaly Respiratory exam: PRESENT: decreased breath sounds Cardiovascular exam: PRESENT: RRR. ABSENT: diastolic murmur, rubs, systolic murmur Pulses: PRESENT: normal dorsalis pedis pul GI/Abdominal exam: PRESENT: normal bowel sounds, soft. ABSENT: distended, guarding, mass, organolmegaly, rebound, tenderness Rectal exam: PRESENT: deferred Extremities exam: PRESENT: full ROM. ABSENT: calf tenderness, clubbing, pedal edema Neurological exam: PRESENT: alert, awake, oriented to person, oriented to place, oriented to time, oriented to situation, CN II-XII grossly intact. ABSENT: motor sensory deficit Psychiatric exam: PRESENT: appropriate affect, normal mood. ABSENT: homicidal ideation, suicidal ideation Results Laboratory Results: WBC 18.7 10^3/uL (4.0-10.5) H 11/02/19 06:33 RBC 4.15 10^6/uL (3.72-5.28) 11/02/19 06:33 Hgb 11.6 g/dL (12.0-15.5) L 11/02/19 06:33 Hct 35.8 % (36.0-47.0) L 11/02/19 06:33 MCV 86 fl (80-97) 11/02/19 06:33 MCH 28.0 pg (27.0-33.4) 11/02/19 06:33 MCHC 32.5 g/dL (32.0-36.0) 11/02/19 06:33 RDW 18.3 % (11.5-14.0) H 11/02/19 06:33 Plt Count 375 10^3/uL (150-450) 11/02/19 06:33 Lymph % (Auto) Not Reportable 11/02/19 06:33 [place] % (Auto) Not Reportable 11/02/19 06:33 Eos % (Auto) Not Reportable 11/02/19 06:33 Baso % (Auto) Not Reportable 11/02/19 06:33 Absolute Neuts (auto) Not Reportable 11/02/19 06:33 Absolute Lymphs (auto) Not Reportable 11/02/19 06:33 Absolute Monos (auto) Not Reportable 11/02/19 06:33 Absolute Eos (auto) Not Reportable 11/02/19 06:33 Absolute Basos (auto) Not Reportable 11/02/19 06:33 Total Counted 100 11/02/19 06:33 Seg Neutrophils % Not Reportable 11/02/19 06:33 Seg Neuts % (Manual) 69 % (42-78) 11/02/19 06:33 Band Neutrophils % 5 % (3-5) 11/02/19 06:33 Lymphocytes % (Manual) 16 % (13-45) 11/02/19 06:33 Monocytes % (Manual) 8 % (3-13) 11/02/19 06:33 Eosinophils % (Manual) 2 % (0-6) 11/02/19 06:33 Basophils % (Manual) 0 % (0-2) 11/02/19 06:33 Abs Neuts (Manual) 13.8 10^3/uL (1.7-8.2) H 11/02/19 06:33 Abs Lymphs (Manual) 3.0 10^3/uL (0.5-4.7) 11/02/19 06:33 Abs Monocytes (Manual) 1.5 10^3/uL (0.1-1.4) H 11/02/19 06:33 Absolute Eos (Manual) 0.4 10^3/uL (0.0-0.6) 11/02/19 06:33 Abs Basophils (Manual) 0.0 10^3/uL (0.0-0.2) 11/02/19 06:33 Toxic Granulation SLIGHT 10/28/19 04:25 Toxic Vacuolation PRESENT 10/28/19 04:25 Clumped Platelets PRESENT 10/30/19 05:50 Large Platelets PRESENT 10/31/19 13:50 Platelet Comment ADEQUATE 11/02/19 06:33 Polychromasia 1+ 11/02/19 06:33 Hypochromasia SLIGHT 10/31/19 13:50 Poikilocytosis 1+ 10/27/19 01:50 Anisocytosis 2+ 11/02/19 06:33 Tear Drop Cells SLIGHT 10/28/19 04:25 Ovalocytes 1+ 11/02/19 06:33 Stomatocytes SLIGHT 10/30/19 05:50 PT 12.7 SEC (11.4-15.4) 10/26/19 11:30 INR 0.95 10/26/19 11:30 APTT 28.1 SEC (23.5-35.8) 10/26/19 11:30 D-Dimer 0.72 ug/mL (0.00-0.50) H 10/28/19 04:25 Carbonic Acid 1.96 mmol/L (1.05-1.35) H 10/30/19 05:25 HCO3/H2CO3 Ratio 21:1 10/30/19 05:25 ABG pH 7.42 (7.35-7.45) 10/30/19 05:25 ABG pCO2 65.0 mmHg (35-45) H 10/30/19 05:25 ABG pO2 74.8 mmHg (80-100) L 10/30/19 05:25 ABG HCO3 41.4 mmol/L (20-24) H 10/30/19 05:25 ABG Total CO2 43.4 mmol/L (21-25) H 10/30/19 05:25 ABG O2 Saturation 94.8 % (94-98) 10/30/19 05:25 ABG Base Excess 14.3 mmol/L 10/30/19 05:25 FiO2 40% 10/30/19 05:25 Sodium 129.7 mmol/L (137-145) L 11/02/19 06:33 Potassium 3.4 mmol/L (3.6-5.0) L 11/02/19 06:33 Chloride 82 mmol/L (98-107) L 11/02/19 06:33 Carbon Dioxide 44 mmol/L (22-30) H* 11/02/19 06:33 Anion Gap 4 (5-19) L 11/02/19 06:33 BUN 35 mg/dL (7-20) H 11/02/19 06:33 Creatinine 0.64 mg/dL (0.52-1.25) 11/02/19 06:33 Est GFR ( Amer) > 60 (>60) 11/02/19 06:33 Est GFR (Non-Af Amer) Cancelled 10/30/19 05:35 Est GFR (MDRD) Non-Af > 60 (>60) 11/02/19 06:33 Glucose 82 mg/dL (75-110) 11/02/19 06:33 POC Glucose 90 mg/dL (70-110) 11/03/19 06:15 Lactic Acid 0.7 mmol/L (0.7-2.1) 10/26/19 22:00 Calcium 8.7 mg/dL (8.4-10.2) 11/02/19 06:33 Phosphorus 3.5 mg/dL (2.5-4.5) 10/30/19 05:35 Magnesium 2.0 mg/dL (1.6-2.3) 11/02/19 06:33 Ferritin 64.50 ng/mL (11.1-264.0) 10/28/19 04:25 Total Bilirubin 0.5 mg/dL (0.2-1.3) 11/02/19 06:33 Direct Bilirubin 0.1 mg/dL (0.0-0.4) 11/02/19 06:33 Neonat Total Bilirubin Not Reportable 11/02/19 06:33 Neonat Direct Bilirubin Not Reportable 11/02/19 06:33 Neonat Indirect Bili Not Reportable 11/02/19 06:33 AST 17 U/L (14-36) 11/02/19 06:33 ALT 11 U/L (<35) 11/02/19 06:33 Alkaline Phosphatase 54 U/L (38-126) 11/02/19 06:33 Lactate Dehydrogenase 134 U/L (120-246) 10/28/19 04:25 Creatine Kinase 182 U/L (30-135) H 10/26/19 11:30 CK-MB (CK-2) 3.23 ng/mL (<4.55) 10/26/19 11:30 Troponin I 0.025 ng/mL 10/26/19 11:30 NT-Pro-B Natriuret Pep 2830 pg/mL (<125) H 10/30/19 05:50 Total Protein 6.4 g/dL (6.3-8.2) 11/02/19 06:33 Albumin 3.4 g/dL (3.5-5.0) L 11/02/19 06:33 Prealbumin 13.8 mg/dL (17.6-36.0) L 10/29/19 03:55 Interleukin 6 1.9 pg/mL (0.0-12.2) 10/28/19 04:25 EGFR Cancelled 10/30/19 05:35 Urine Color YELLOW 10/26/19 12:10 Urine Appearance CLEAR 10/26/19 12:10 Urine pH 6.0 (5.0-9.0) 10/26/19 12:10 Ur Specific [place] 1.011 10/26/19 12:10 Urine Protein NEGATIVE mg/dL (NEGATIVE) 10/26/19 12:10 Urine Glucose (UA) NEGATIVE mg/dL (NEGATIVE) 10/26/19 12:10 Urine Ketones NEGATIVE mg/dL (NEGATIVE) 10/26/19 12:10 Urine Blood NEGATIVE (NEGATIVE) 10/26/19 12:10 Urine Nitrite (Reflex) NEGATIVE (NEGATIVE) 10/26/19 12:10 Urine Bilirubin NEGATIVE (NEGATIVE) 10/26/19 12:10 Urine Urobilinogen NEGATIVE mg/dL (<2.0) 10/26/19 12:10 Leukocyte Esterase Rfl NEGATIVE (NEGATIVE) 10/26/19 12:10 Urine RBC (Auto) 2 /HPF 10/26/19 12:10 U Hyaline Cast (Auto) 6 /LPF 10/26/19 12:10 Urine WBC (Reflex) 1 /HPF 10/26/19 12:10 Urine Mucus (Auto) RARE /LPF 10/26/19 12:10 Urine Ascorbic Acid NEGATIVE (NEGATIVE) 10/26/19 12:10 Time Trough Drawn 220510/31/19 22:06 Vancomycin Trough 14.0 ug/mL (5.0-20.0) 10/31/19 22:06 Urine Opiates Screen NEGATIVE 10/26/19 12:10 Urine Methadone Screen NEGATIVE 10/26/19 12:10 Ur Barbiturates Screen NEGATIVE 10/26/19 12:10 Ur Phencyclidine Scrn NEGATIVE 10/26/19 12:10 Ur Amphetamines Screen NEGATIVE 10/26/19 12:10 U Benzodiazepines Scrn NEGATIVE 10/26/19 12:10 Urine Cocaine Screen NEGATIVE 10/26/19 12:10 U Marijuana (THC) Screen NEGATIVE 10/26/19 12:10 COVID-19 Source NASOPHARYNGEAL 10/26/19 14:00 COVID-19 (LINDA) NOT DETECTED 10/26/19 14:00 10/26/19 10/27/19 10/28/19 11:30 01:50 04:25 CK-MB (CK-2) 3.23 Troponin I 0.025 NT-Pro-B Natriuret Pep 1500 H 1270 H 1520 H 10/29/19 10/30/19 03:55 05:50 CK-MB (CK-2) Troponin I NT-Pro-B Natriuret Pep 3720 H 2830 H Impressions: Chest X-Ray 10/26/19 11:26 IMPRESSION: Endotracheal tube tip overlies the mid trachea, NG tube side port is above the GE junction approximately 2 cm. Increased interstitial prominence and small bilateral pleural effusions. Chest X-Ray 10/28/19 05:00 IMPRESSION: No significant change. No pneumothorax. Chest X-Ray 10/29/19 05:00 IMPRESSION: 1. Stable emphysematous change without evidence of new cardiopulmonary process. 2. Enteric tube side port above the GE junction. Recommend advancing 5 cm. 3. Endotracheal tube tip overlies midthoracic trachea, stable. Plan Plan of Treatment: Patient is advised about compliant with her medications, strongly advised to quit smoking. Given a prescription for prednisone 10 mg p.o. twice daily for 5 days, doxycycline 100 mg p.o. twice daily for 7 days. pt is advised to follow- up with PCP next week. Time Spent: Greater than 30 Minutes Stroke Is this a Stroke Patient?: No Acute Heart Failure - Is this a Heart Failure Patient?: No
[2019-11-03 11:54] VITALS: BP 105/57
--- NOTE | 2019-11-03 12:04 | PDOC CONSULTATION ---
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 She continues to smoke right up until the time of admission Past Medical History Cardiac Medical History: Reports: Congestive Heart Failure, Coronary Artery Disease, Myocardial Infarction, Hypertension Pulmonary Medical History: Reports: Chronic Obstructive Pulmonary Disease (COPD), Intubation, Pneumonia, Respiratory Failure Denies: Tuberculosis Neurological Medical History: Denies: Seizures Endocrine Medical History: Reports: Diabetes Mellitus Type 2, Hypothyroidism Musculoskeltal Medical History: Reports: Fibromyalgia Psychiatric Medical History: Reports: Bipolar Disorder, Depression Past Surgical History Past Surgical History: Reports: Appendectomy, Cardiac Catheterization, Section Denies: Pacemaker Social History Information Source: Patient, [facility] Records Smoking Status: Current Every Day Smoker Cigarettes Packs Per Day: 2 Number of Years Smokin Passive smoke exposure as: Both Frequency of Alcohol Use: None Hx Recreational Drug Use: No Drugs: None Hx Prescription Drug Abuse: No Do you have pets?: No Have you had any respiratory illnesses as a child?: No Have you been exposed to any sick contacts recently?: No Have you had any recent respiratory illnesses?: No Have you travelled outside of [place] in the past 12 months?: No - Advance Directive Resuscitation Status: Full Code Family History Family History: CAD, COPD, Hypertension Parental Family History Reviewed: Yes Children Family History Reviewed: Yes Sibling(s) Family History Reviewed.: Yes Medication/Allergy Home Medications: Baclofen [Baclofen 10 mg Tablet] 5 mg PO Q12 01/20/18 Buprenorphine HCl/Naloxone HCl [Suboxone 8 mg-2 mg Sl Film] 2.5 film SL DAILY MDD 3 FILMS 01/20/18 Ipratropium/Albuterol Sulfate [Combivent Respimat 4 gm Mdi] 1 puff IH Q6HP PRN MDD 6 PUFFS 05/03/18 Levothyroxine Sodium [Synthroid 0.05 mg Tablet] 50 mcg PO Q6AM 05/03/18 Ropinirole HCl [Requip 2 mg Tablet] 2 mg PO DAILY 05/03/18 Albuterol Sulfate [Ventolin Hfa 8 gm Mdi] 2 puff IH Q4HP PRN 08/20/19 Amlodipine Besylate [Norvasc 5 mg Tablet] 5 mg PO DAILY 08/20/19 Atorvastatin Calcium [Lipitor 40 mg Tablet] 40 mg PO QHS 08/20/19 Carvedilol [Coreg 3.125 mg Tablet] 3.125 mg PO Q12 08/20/19 Citalopram Hydrobromide [Celexa 20 mg Tablet] 20 mg PO DAILY 08/20/19 Doxepin HCl [Sinequan 10 mg Capsule] 20 mg PO QHS 08/20/19 Fluticasone Propionate [Flonase Nasal Newton 50 Mcg/Newton 16 gm] 1 spray NASL DAILY 08/20/19 Furosemide [Lasix 40 mg Tablet] 40 mg PO QAM 08/20/19 Albuterol Sulfate [Ventolin 0.083% Neb 2.5 mg/3 mL Ampul] 3 ml NEB RTTID 09/22/19 Budesonide/Formoterol Fumarate [Symbicort HFA 160-4.5 mcg Inhaler 6 gm] 2 puff IH BID 09/22/19 Ipratropium/Albuterol Sulfate [Combivent Respimat 4 gm Mdi] 1 puff IH QID 09/22/19 Nystatin [Mycostatin 500,000 Unit/5 ml Susp Udcup] 5 ml PO QIDP PRN 09/22/19 Doxycycline Hyclate 100 mg PO BID 7 Days #14 tablet. 11/03/19 Prednisone [Deltasone 10 mg Tablet] 10 mg PO BID 5 Days #10 tablet 11/03/19 Allergies/Adverse Reactions: zolpidem [From Ambien] Adverse Reaction (Verified 08/22/19 09:05) Review of Systems All systems: reviewed and no additional remarkable complaints except as stated Physical Exam Vital Signs: Temp Pulse Resp BP Pulse Ox 97.9 F 74 15 144/72 H 100 10/31/19 08:00 10/31/19 08:00 10/31/19 10:00 10/31/19 09:01 10/31/19 09:00 Intake & Output 10/30/19 10/31/19 11/01/19 06:59 06:59 06:59 Intake Total 1489 925 540 Output Total 2090 4645 0 Balance -9861 -3500 540 Weight 58.4 kg 54.7 kg General appearance: PRESENT: no acute distress, cooperative, disheveled, thin, well-developed, well-nourished Head exam: PRESENT: atraumatic, normocephalic Eye exam: PRESENT: conjunctiva pale, EOMI. ABSENT: nystagmus, periorbital swelling Mouth exam: PRESENT: dry mucosa, neck supple, tongue midline Neck exam: ABSENT: carotid bruit, full ROM, JVD, lymphadenopathy, meningismus, tenderness, thyromegaly, tracheal deviation, tracheostomy, other Respiratory exam: PRESENT: decreased breath sounds, prolonged expiratory phas, rhonchi, symmetrical, unlabored, wheezes. ABSENT: rales, retraction, stridor, tachypnea Cardiovascular exam: PRESENT: RRR, +S1, +S2, tachycardia. ABSENT: systolic murmur Pulses: PRESENT: normal radial pulses GI/Abdominal exam: PRESENT: soft. ABSENT: distended, guarding, mass, rebound, tenderness Extremities exam: ABSENT: calf tenderness, clubbing, joint swelling, pedal edema, tenderness Musculoskeletal exam: ABSENT: deformity, dislocation Neurological exam: PRESENT: alert, awake Psychiatric exam: PRESENT: flat affect Skin exam: PRESENT: dry, warm Results Laboratory Results: 10/30/19 05:50 10/30/19 05:50 10/26/19 11:30 Blood Blood Culture - Final NO GROWTH IN 5 DAYS 10/26/19 10/26/19 10/27/19 11:30 11:30 01:50 Creatine Kinase 182 H CK-MB (CK-2) 3.23 Troponin I 0.025 NT-Pro-B Natriuret Pep 1500 H 1270 H 10/28/19 10/29/19 10/30/19 04:25 03:55 05:50 Creatine Kinase CK-MB (CK-2) Troponin I NT-Pro-B Natriuret Pep 1520 H 3720 H 2830 H Impressions: Chest X-Ray 10/29/19 05:00 IMPRESSION: 1. Stable emphysematous change without evidence of new cardiopulmonary process. 2. Enteric tube side port above the GE junction. Recommend advancing 5 cm. 3. Endotracheal tube tip overlies midthoracic trachea, stable. Assessment & Plan - Diagnosis (1) COPD with acute exacerbation Is this a current diagnosis for this admission?: Yes Plan: Generic Name Dose Route Start Last Admin Trade Name Kiki PRN Reason Stop Dose Admin Prednisone 10 mg 11/02/19 10:00 11/03/19 10:03 Deltasone 10 Mg Tablet PO 12/02/19 09:59 10 mg BID LILY Ropinirole HCl 2 mg 10/31/19 10:00 11/03/19 10:04 Requip 2 Mg Tablet PO 11/30/19 09:59 2 mg DAILY LILY Budesonide 0.25 mg 10/28/19 20:00 11/03/19 08:05 Pulmicort Neb 0.25 Mg/2 Ml Ampul NEB 11/27/19 19:59 0.25 mg RTQ12 LILY Fluticasone/Vilanterol 1 inh 10/31/19 14:30 11/03/19 10:07 Breo 200-25 Mcg Ellipta 14 Dose/Dpi IH 11/30/19 14:29 1 inh DAILY LILY Fluticasone Propionate 1 spray 11/01/19 10:00 11/03/19 10:08 Flonase Nasal Newton 50 Mcg/Newton 16 Gm NASL 12/01/19 09:59 1 spray DAILY LILY 06/05/17 13:00 Gram Stain - Final Tracheal Aspirate Sputum Culture - Final Staphylococcus Aureus Klebsiella Pneumoniae C.albicans/C.dubliniensis Normal Didi Absent Consider holding the Breo as long as patient is getting inhaled budesonide (2) Acute and chronic respiratory failure with hypercapnia Is this a current diagnosis for this admission?: Yes Plan: Smoking extubated approaching her baseline (3) Tobacco abuse disorder Is this a current diagnosis for this admission?: Yes Plan: Stop smoking discussed the ninth risk increased risk and dangers of continued tobacco use offered patient getting patches as well as other forms of medication to help with her smoking cessation she declined - Time Time Spent with patient: 50 min Time Spent: 30 to 50 Minutes Smoking Cessation Education: over 10 minutes
== END 2019-11-03 01:10 | disposition home or self-care (01) | DRG 208 ==
LOC: ER 11:22 → EH 12:41 → ICU 15:08 → 4S 10-31 12:36
PROVIDERS: ADMIT Internal Medicine; ATTEND Internal Medicine
PROC: 5A1945Z Respiratory Ventilation, 24-96 Consecutive Hours (ICD-10-PCS; principal; 2019-10-26)
PROC: 06HM33Z Insertion of Infusion Device into Right Femoral Vein, Percutaneous Approach (ICD-10-PCS; 2019-10-26)
DX: J44.1 Chronic obstructive pulmonary disease with (acute) exacerbation (principal); J96.22 Acute and chronic respiratory failure with hypercapnia; J15.212 Pneumonia due to Methicillin resistant Staphylococcus aureus; J14 Pneumonia due to Hemophilus influenzae; J96.21 Acute and chronic respiratory failure with hypoxia; I50.32 Chronic diastolic (congestive) heart failure; E11.9 Type 2 diabetes mellitus without complications; F31.9 Bipolar disorder, unspecified; G89.4 Chronic pain syndrome; I87.2 Venous insufficiency (chronic) (peripheral); Z20.828 Contact with and (suspected) exposure to other viral communicable diseases; Z99.81 Dependence on supplemental oxygen; I11.0 Hypertensive heart disease with heart failure; D72.823 Leukemoid reaction; I25.10 Atherosclerotic heart disease of native coronary artery without angina pectoris; I25.2 Old myocardial infarction; E03.9 Hypothyroidism, unspecified; Z90.49 Acquired absence of other specified parts of digestive tract; Z79.899 Other long term (current) drug therapy; Z79.890 Hormone replacement therapy; Z79.51 Long term (current) use of inhaled steroids; Z79.891 Long term (current) use of opiate analgesic; Z78.1 Physical restraint status; F17.210 Nicotine dependence, cigarettes, uncomplicated; Z82.49 Family history of ischemic heart disease and other diseases of the circulatory system; Z83.6 Family history of other diseases of the respiratory system; Z71.6 Tobacco abuse counseling
CPT/HCPCS: 36415; 36556; 51702; 71045; 80048; 80053; 80202; 80307; 81001; 82550; 82553; 82565; 82728; 82803; 82962; 83520; 83605; 83615; 83735; 83880; 84100; 84134; 84484; 85025; 85379; 85610; 85730; 87040; 87070; 87077; 87086; 87186; 87205; 87635; 93005; 93010; 94002; 94003; 96361; 96374; 99291; C9113; C9803; J0692; J0696; J1650; J1815; J1940; J2250; J2704; J2920; J2930; J3010; J3370; J3490; J7040; J7060; J7120; J7512

== ENCOUNTER 2020-01-04 04:34 | Inpatient (IN) | payer MEDICARE, MEDICAID ==
[2020-01-04] MEDS ORDERED: LORAZEPAM INJ 2 MG/1 ML VIAL IV ONE ×2 (04:50→15:07)
[2020-01-04] MEDS ORDERED: MIDAZOLAM HCL 50 MG/100 ML RTUINJ IV PRN (05:02)
[2020-01-04] MEDS ORDERED: ETOMIDATE INJ/PF 20 MG/10 ML SDV IV ONE (05:09)
[2020-01-04] MEDS ORDERED: NORMAL SALINE 1000 ML 1,000 ML IV ONE (05:11)
[2020-01-04] MEDS ORDERED: VECURONIUM BROMIDE INJ 10 MG VIAL IV ONE (05:12)
[2020-01-04] MEDS ORDERED: SUCCINYLCHOLINE CHLORIDE INJ 200 MG/10 ML VIAL IV ONE (05:12)
--- NOTE | 2020-01-04 05:33 | ER Document Report ---
ED General - General TRAVEL OUTSIDE OF THE [place] IN LAST 30 DAYS: No - HPI Associated symptoms: Other - See HPI Exacerbated by: Other - See HPI Relieved by: Other - See HPI Similar symptoms previously: Yes <CHI IBARRA IV - Last Filed: 01/04/20 05:56> <EAGLE CORRAL - Last Filed: 01/04/20 07:53> - General Chief Complaint: Respiratory Distress Stated Complaint: RESPIRATORY DISTRESS Time Seen by Provider: 01/04/20 05:02 Primary Care Provider: QIAN MCGEE FNP-C [Primary Care Provider] - Follow up as needed - HPI Context: 64-year-old female with a history of COPD, "65 prior intubations" per patient, presents via EMS on CPAP in acute respiratory distress. Details of the events leading up to presentation are very limited as the patient is in extremis. EMS reports that the family members at the house have "all been sick". Patient was reported to be coughing up brown appearing sputum at the scene. Patient is unable to describe any exacerbating or alleviating factors given her acute respiratory distress. (CHI IBARRA IV) - Related Data Allergies/Adverse Reactions: zolpidem [From Ambien] Adverse Reaction (Verified 08/22/19 09:05) Past Medical History - General Information source: Patient, Emergency Med Personnel Cannot obtain history due to: Other - Acute respiratory distress - Social History Smoking Status: Current Every Day Smoker Family History: Reviewed & Not Pertinent, CAD, COPD, Hypertension - Past Medical History Cardiac Medical History: Reports: Hx Congestive Heart Failure, Hx Coronary Artery Disease, Hx Heart Attack, Hx Hypertension Pulmonary Medical History: Reports: Hx COPD, Hx Pneumonia, Hx Intubation, Hx Respiratory Failure Denies: Hx Tuberculosis Neurological Medical History: Denies: Hx Seizures Endocrine Medical History: Reports: Hx Diabetes Mellitus Type 2, Hx Hypothyroidism Renal/ Medical History: Denies: Hx Peritoneal Dialysis Musculoskeletal Medical History: Reports Hx Fibromyalgia Psychiatric Medical History: Reports: Hx Bipolar Disorder, Hx Depression Past Surgical History: Reports: Hx Appendectomy, Hx Cardiac Catheterization, Hx Cardiac Surgery, Hx Section. Denies: Hx Pacemaker - Immunizations Hx Diphtheria, Pertussis, Tetanus Vaccination: Yes Hx Pneumococcal Vaccination: 04/16/09 <CHI IBARRA IV - Last Filed: 01/04/20 05:56> Review of Systems - Review of Systems -: Yes ROS unobtainable due to patient's medical condition Cardiovascular: Dyspnea <CHI IBARRA IV - Last Filed: 01/04/20 05:56> Physical Exam <CHI IBARRA IV - Last Filed: 01/04/20 05:56> - Vital signs Vitals: Pulse Ox 87 L 01/04/20 04:34 - Notes Notes: CONSTITUTIONAL [Vital signs reviewed, Patient is in obvious respiratory distress. Patient is tachypneic, agitated, and appears to be in severe distress HEAD [Atraumatic, Normocephalic.] EYES [Eyes are normal to inspection, No discharge from eyes, Extraocular muscles intact, Sclera are normal, Conjunctiva are normal.] ENT [Ears normal to inspection, Nose examination normal, Posterior pharynx normal, Mouth normal to inspection.] NECK [Normal ROM, No jugular venous distention, No meningeal signs, no carotid bruit.] RESPIRATORY CHEST [Chest is nontender, Breath sounds greatly diminished bilaterally, expiratory wheezes noted, severe respiratory distress.] CARDIOVASCULAR [Tachycardia, No murmurs, Normal S1 S2, No rub, No gallop.] ABDOMEN [Abdomen is nontender, No pulsatile masses, No other masses, Bowel sounds normal, No distension, No peritoneal signs, No hernias.] BACK [There is no CVA Tenderness, There is no tenderness to palpation, Normal inspection.] UPPER EXTREMITY [Inspection normal, No cyanosis, No clubbing, No edema, 2+ radial pulses.] LOWER EXTREMITY [Inspection normal, No cyanosis, No clubbing, No edema, No calf tenderness, 2+ femoral pulses.] NEURO [No focal motor deficits, No focal sensory deficits, Speech normal.] SKIN [Skin is warm, Skin is dry, Skin is pale.] LYMPHATIC [No adenopathy in neck.] PSYCHIATRIC [Extremely anxious and agitated. ] (CHI IBARRA IV) Course - Laboratory Result Diagrams: 01/04/20 04:40 01/04/20 04:40 <CHI IBARRA JANENE - Last Filed: 01/04/20 05:56> - Laboratory Result Diagrams: 01/04/20 04:40 01/04/20 04:40 <EAGLE CORRAL - Last Filed: 01/04/20 07:53> - Vital Signs Vital signs: Temp Pulse Resp BP Pulse Ox 14 106/61 100 01/04/20 07:15 01/04/20 07:15 01/04/20 07:15 - Laboratory Laboratory results interpreted by me: 01/04/20 01/04/20 01/04/20 04:40 04:40 05:07 WBC 19.0 H RBC 3.42 L Hgb 9.9 L Hct 30.1 L RDW 16.3 H Abs Neuts (Manual) 13.9 H Abs Monocytes (Manual) 1.9 H Carbonic Acid 2.01 H ABG pH 7.32 L ABG pCO2 66.9 H ABG pO2 107.5 H ABG HCO3 33.3 H ABG Total CO2 35.4 H Sodium 134.5 L Chloride 94 L Carbon Dioxide 36 H Glucose 121 H Direct Bilirubin 0.6 H Albumin 3.4 L - Diagnostic Test Radiology results interpreted by me: 01/04/20 05:56 Chest X-Ray 01/04/20 05:14 IMPRESSION: Mild interstitial edema with tiny bibasilar effusions copyright 2011 [email or web address]- All Rights Reserved (CHI IBARRA IV) - EKG Interpretation by Ia Additional EKG results interpreted by me: 01/04/20 05:40 EKG obtained on 01/04/2020 was interpreted by this MD. Findings sinus tachycardia, rate 108, normal axis, WI intervals appear within normal limits, P waves preceding QRS complexes, QRS complexes appear narrow, QT C is 499, there are no obvious patterns of ST segment elevation or depression present to suggest acute myocardial ischemia or infarction. This EKG was compared to a prior EKG from 10/26/2019. There are no significant changes noted when compared to prior EKG. Impression sinus tachycardia with nonspecific ST segments (CHI IBARRA IV) Procedures - Intubation Orotracheal Time of Intubation: 04:48 Airway evaluation: Normal anatomy Mallampati Classification: Class 2 Medications: Etomidate, Succinylcholine Intubation method: Orotracheal Blade type: Trudy Blade size: 4 Equipment used: Glidescope ETT size: 7.5 ETT secured at: Lips ETT secured at (cm): 21 Breath Sounds after Intubation: Equal End tidal CO2 confirmed: Yes Post Intubation Xray: Yes Intubation Complications: No complications - Additional Procedures IV insertion Time performed: 04:40 Additional Procedures: IV insertion <FRED,CHI IV - Last Filed: 01/04/20 05:56> - Additional Procedures IV insertion Notes: 01/04/20 05:46 Bilateral 18-gauge IVs were placed in the external jugular of the patient without difficulty. (CHI IBARRA IV) Critical Care Note - Critical Care Note Total time excluding time spent on procedures (mins): 60 <CHI IBARRA IV - Last Filed: 01/04/20 05:56> Discharge <CHI IBARRA IV - Last Filed: 01/04/20 05:56> - Discharge Unit Admitted: ICU <EAGLE CORRAL - Last Filed: 01/04/20 07:53> - Discharge Clinical Impression: Acute on chronic respiratory failure Qualifiers: Respiratory failure complication: hypoxia Qualified Code(s): J96.21 - Acute and chronic respiratory failure with hypoxia Condition: Critical Disposition: ADMITTED INPATIENT Referrals: QIAN MCGEE, GENERAL COUNSEL-C [Primary Care Provider] - Follow up as needed
[2020-01-04 05:48] LABS: HEMATOCRIT 30.1 % (36.0-47.0); HEMOGLOBIN 9.9 g/dL (12.0-15.5); MEAN CORPUSCULAR HEMOGLOBIN 28.9 pg (27.0-33.4); MEAN CORPUSCULAR HGB CONC 32.8 g/dL (32.0-36.0); MEAN CORPUSCULAR VOLUME 88 fl (80-97); PLATELET COUNT 216 10^3/uL (150-450); RED BLOOD COUNT 3.42 10^6/uL (3.72-5.28); RED CELL DISTRIBUTION WIDTH 16.3 % (11.5-14.0)
[2020-01-04] MEDS ORDERED: NORMAL SALINE IV ONE (05:48)
--- NOTE | 2020-01-04 05:48 | RADIOLOGY REPORT (SQ) ---
EXAM DESCRIPTION: XR CHEST 1 VIEW COMPLETED DATE/TME: 01/04/2020 05:14 CLINICAL HISTORY: 64 years, Female, Intubation, respiratory failure COMPARISON: 10/29/2019 chest NUMBER OF VIEWS: 1 TECHNIQUE: Portable chest LIMITATIONS: None. FINDINGS: The heart size is normal. Endotracheal and enteric tubes are in place. Osteopenia. No pneumothorax. Mild interstitial edema with tiny bibasilar effusions IMPRESSION: Mild interstitial edema with tiny bibasilar effusions copyright 2011 [employer]- All Rights Reserved
[2020-01-04] MEDS ORDERED: VANCOMYCIN HCL INJ 1000 MG VIAL IV ONE (05:50)
[2020-01-04] MEDS ORDERED: CEFTRIAXONE INJ 1000 MG VIAL IV ONE (05:50)
[2020-01-04] MEDS ORDERED: CEFTRIAXONE 1 GM/D5W RTU 1 GM/50 ML RTUPB IV ONE (06:10)
[2020-01-04 06:14] LABS: ALBUMIN 3.4 g/dL (3.5-5.0); ALKALINE PHOSPHATASE 104 U/L (38-126); ANION GAP 5 (5-19); ASPARTATE AMINO TRANSFERASE 36 U/L (14-36); BILIRUBIN,DIRECT 0.6 mg/dL (0.0-0.4); BILIRUBIN,TOTAL 0.9 mg/dL (0.2-1.3); BLOOD UREA NITROGEN 15 mg/dL (7-20); CALCIUM 8.7 mg/dL (8.4-10.2); CARBON DIOXIDE 36 mmol/L (22-30); CHLORIDE 94 mmol/L (98-107); GLUCOSE 121 mg/dL (75-110); POTASSIUM 4.2 mmol/L (3.6-5.0); TOTAL PROTEIN 6.7 g/dL (6.3-8.2)
[2020-01-04 06:20] LABS: ARTERIAL BLOOD BASE EXCESS 5.5 mmol/L; ARTERIAL BLOOD FIO2 40%; ARTERIAL BLOOD H2CO3 2.01 mmol/L (1.05-1.35); ARTERIAL BLOOD HCO3 33.3 mmol/L (20-24); ARTERIAL BLOOD O2 SATURATION 97.3 % (94-98); ARTERIAL BLOOD PCO2 66.9 mmHg (35-45); ARTERIAL BLOOD PH 7.32 (7.35-7.45); ARTERIAL BLOOD PO2 107.5 mmHg (80-100); ARTERIAL BLOOD TOTAL CO2 35.4 mmol/L (21-25)
[2020-01-04 06:22] LABS: ABSOLUTE LYMPHOCYTES# (MANUAL) 3.2 10^3/uL (0.5-4.7); ABSOLUTE MONOCYTES # (MANUAL) 1.9 10^3/uL (0.1-1.4); BAND NEUTROPHILS % (MANUAL) 3 % (3-5); BASOPHILS % (MANUAL) 0 % (0-2); EOSINOPHILS % (MANUAL) 0 % (0-6); LYMPHOCYTES % (MANUAL) 17 % (13-45); MONOCYTES % (MANUAL) 10 % (3-13); SEGMENTED NEUTROPHILS % (MAN) 70 % (42-78); TOTAL CELLS COUNTED 100
[2020-01-04 06:24] LABS: ANISOCYTOSIS 1+; PLATELET COMMENT ADEQUATE; POLYCHROMASIA SLIGHT; TEAR DROP CELLS SLIGHT
[2020-01-04] MEDS ORDERED: PROPOFOL 1,000 MG/100 ML INFUS..BTL IV PRN (09:10)
[2020-01-04] MEDS ORDERED: ACETAMINOPHEN 325 MG TABLET PO PRN (09:16)
[2020-01-04] MEDS ORDERED: GLUCAGON,HUMAN RECOMB 1 MG INJ SUBCUT PRN (09:16)
[2020-01-04] MEDS ORDERED: DEXTROSE 50%-WATER 25 GM/50 ML DISP.SYRIN IV PRN ×4 (09:16→11:31)
[2020-01-04] MEDS ORDERED: DEXTROSE 40% GEL 15 GM TUBE PO PRN ×4 (09:16→11:31)
[2020-01-04] MEDS ORDERED: PHARMACY COMMUNICATION ORDER MC NR (09:30)
[2020-01-04] MEDS ORDERED: ACETAMINOPHEN 325 MG TABLET NG PRN (09:59)
[2020-01-04] MEDS ORDERED: CARVEDILOL 12.5 MG TABLET PO SCH (10:00)
[2020-01-04] MEDS ORDERED: CARVEDILOL 12.5 MG TABLET NG SCH (10:00)
[2020-01-04] MEDS: NORMAL SALINE 1000 ML 1,000 ML IV PRN ×2 (10:10→20:19)
[2020-01-04] MEDS: PROPOFOL 1,000 MG/100 ML INFUS..BTL IV PRN ×2 (10:10→23:15)
[2020-01-04] MEDS: METHYLPREDNISOLONE INJ 40 MG/1 ML SDV IV SCH ×2 (10:23→22:59)
[2020-01-04] MEDS: ENOXAPARIN SODIUM INJ 40 MG/0.4 ML DISP.SYRIN SUBCUT SCH (10:23)
[2020-01-04] MEDS: FAMOTIDINE INJ/PF 20 MG/2 ML SDV IV SCH ×2 (10:24→22:59)
[2020-01-04] MEDS ORDERED: GLUCAGON,HUMAN RECOMB 1 MG INJ IM PRN (11:31)
[2020-01-04] MEDS: INSULIN REG, HUMAN 100 UNIT/ML 3 ML VIAL (PYX) SUBCUT SCH ×3 (12:24→23:13)
[2020-01-04] MEDS: IPRATROPIUM/ALBUTEROL 0.5-2.5 MG/3 ML AMPUL NEB SCH ×2 (13:38→21:47)
[2020-01-04 15:01] LABS: ARTERIAL BLOOD BASE EXCESS 4.3 mmol/L; ARTERIAL BLOOD FIO2 40%; ARTERIAL BLOOD H2CO3 2.18 mmol/L (1.05-1.35); ARTERIAL BLOOD HCO3 32.7 mmol/L (20-24); ARTERIAL BLOOD O2 SATURATION 93.2 % (94-98); ARTERIAL BLOOD PH 7.27 (7.35-7.45); ARTERIAL BLOOD PO2 77.5 mmHg (80-100); ARTERIAL BLOOD TOTAL CO2 34.9 mmol/L (21-25)
[2020-01-04 15:02] LABS: ARTERIAL BLOOD PCO2 72.4 mmHg (35-45)
[2020-01-04] MEDS ORDERED: [UNRECOGNIZED DRUG - OTHER] SL SCH (15:15)
[2020-01-04] MEDS ORDERED: BUPRENORPHINE HCL SL SCH (15:15)
[2020-01-04] MEDS ORDERED: NALOXONE HCL SL SCH (15:15)
[2020-01-04] MEDS ORDERED: (PENDING PHARMACY ID) (Bupropion Hcl [Bupropion Xl] 150 MG) PO SCH (15:15)
[2020-01-04] MEDS ORDERED: CITALOPRAM HYDROBROMIDE 20 MG TABLET PO SCH (17:00)
[2020-01-04] MEDS ORDERED: GABAPENTIN 300 MG CAPSULE PO SCH (17:00)
[2020-01-04] MEDS: ATORVASTATIN CALCIUM 40 MG TABLET NG SCH ×2 (17:28→22:59)
[2020-01-04] MEDS: LEVOTHYROXINE SODIUM 0.05 MG TABLET NG SCH (17:28)
[2020-01-04] MEDS: CARVEDILOL 3.125 MG TABLET NG SCH ×2 (17:28→21:38)
[2020-01-04] MEDS: BUPROPION HCL 75 MG TABLET NG SCH ×2 (17:29→17:31)
[2020-01-04] MEDS: CITALOPRAM HYDROBROMIDE 20 MG TABLET NG SCH (17:29)
[2020-01-04] MEDS: GABAPENTIN 300 MG CAPSULE NG SCH ×2 (17:29→17:30)
[2020-01-04] MEDS: DOXEPIN HCL 10 MG CAPSULE NG SCH ×2 (17:29→22:59)
[2020-01-04] MEDS: AMLODIPINE BESYLATE 5 MG TABLET NG SCH (17:30)
[2020-01-04] MEDS: HYDROXYZINE PAMOATE 25 MG CAPSULE PO SCH ×2 (17:30→22:59)
[2020-01-04] MEDS ORDERED: BUPROPION HCL 75 MG TABLET PO SCH (18:00)
[2020-01-04] MEDS ORDERED: MIDAZOLAM 2 MG/2 ML INJ ONE (20:13)
--- NOTE | 2020-01-04 20:21 | EKG REPORT ---
SEVERITY:- BORDERLINE ECG - SINUS TACHYCARDIA BORDERLINE RIGHT AXIS DEVIATION BORDERLINE PROLONGED QT INTERVAL : Confirmed by: Daniela Vasquez 04-Jan-2020 20:21:19
[2020-01-04] MEDS ORDERED: MIDAZOLAM 2 MG/2 ML INJ IV ONE (21:00)
[2020-01-04] MEDS: MIDAZOLAM 2 MG/2 ML INJ IV PRN (21:30)
[2020-01-04] MEDS ORDERED: CARVEDILOL 3.125 MG TABLET PO SCH (22:00)
[2020-01-04] MEDS ORDERED: DOXEPIN HCL 10 MG CAPSULE PO SCH (22:00)
[2020-01-04] MEDS ORDERED: ATORVASTATIN CALCIUM 40 MG TABLET PO SCH (22:00)
[2020-01-04] MEDS ORDERED: DOXEPIN HCL 10 MG CAPSULE ONE (22:45)
[2020-01-05] MEDS: MIDAZOLAM 2 MG/2 ML INJ IV PRN ×4 (00:31→05:45)
[2020-01-05] MEDS: GABAPENTIN 300 MG CAPSULE NG SCH ×3 (01:42→17:58)
[2020-01-05] MEDS: IPRATROPIUM/ALBUTEROL 0.5-2.5 MG/3 ML AMPUL NEB SCH ×4 (02:31→19:37)
[2020-01-05] MEDS: LEVOTHYROXINE SODIUM 0.05 MG TABLET NG SCH (05:45)
[2020-01-05] MEDS ORDERED: LEVOTHYROXINE SODIUM 0.05 MG TABLET PO SCH (06:00)
[2020-01-05 06:12] LABS: HEMATOCRIT 27.3 % (36.0-47.0); HEMOGLOBIN 8.9 g/dL (12.0-15.5); MEAN CORPUSCULAR HEMOGLOBIN 28.4 pg (27.0-33.4); MEAN CORPUSCULAR HGB CONC 32.5 g/dL (32.0-36.0); MEAN CORPUSCULAR VOLUME 88 fl (80-97); PLATELET COUNT 234 10^3/uL (150-450); RED BLOOD COUNT 3.12 10^6/uL (3.72-5.28); RED CELL DISTRIBUTION WIDTH 16.1 % (11.5-14.0)
[2020-01-05] MEDS: INSULIN REG, HUMAN 100 UNIT/ML 3 ML VIAL (PYX) SUBCUT SCH ×4 (06:14→23:58)
[2020-01-05] MEDS: PROPOFOL 1,000 MG/100 ML INFUS..BTL IV PRN (06:14)
[2020-01-05 06:44] LABS: BLOOD UREA NITROGEN 18 mg/dL (7-20); CALCIUM 7.8 mg/dL (8.4-10.2); CARBON DIOXIDE 29 mmol/L (22-30); CHLORIDE 103 mmol/L (98-107); GLUCOSE 104 mg/dL (75-110); POTASSIUM 4.6 mmol/L (3.6-5.0)
[2020-01-05 06:47] LABS: ANION GAP 3 (5-19)
[2020-01-05] MEDS: FUROSEMIDE 40 MG TABLET PO SCH (08:13)
[2020-01-05] MEDS: FAMOTIDINE INJ/PF 20 MG/2 ML SDV IV SCH ×2 (09:15→22:35)
[2020-01-05] MEDS: BUPROPION HCL 75 MG TABLET NG SCH ×2 (09:15→17:58)
[2020-01-05] MEDS: CITALOPRAM HYDROBROMIDE 20 MG TABLET NG SCH (09:15)
[2020-01-05] MEDS: HYDROXYZINE PAMOATE 25 MG CAPSULE PO SCH ×4 (09:15→22:36)
[2020-01-05] MEDS: CARVEDILOL 3.125 MG TABLET NG SCH ×2 (09:15→22:50)
[2020-01-05] MEDS: ENOXAPARIN SODIUM INJ 40 MG/0.4 ML DISP.SYRIN SUBCUT SCH (09:16)
[2020-01-05] MEDS: METHYLPREDNISOLONE INJ 40 MG/1 ML SDV IV SCH ×2 (09:16→22:35)
[2020-01-05] MEDS: AMLODIPINE BESYLATE 5 MG TABLET NG SCH (09:16)
[2020-01-05] MEDS: ASPIRIN 81 MG TABLET, CHEWABLE NG SCH (09:17)
[2020-01-05 09:21] LABS: ARTERIAL BLOOD BASE EXCESS 4.6 mmol/L; ARTERIAL BLOOD H2CO3 1.77 mmol/L (1.05-1.35); ARTERIAL BLOOD HCO3 31.6 mmol/L (20-24); ARTERIAL BLOOD O2 SATURATION 97.1 % (94-98); ARTERIAL BLOOD PCO2 58.9 mmHg (35-45); ARTERIAL BLOOD PH 7.35 (7.35-7.45); ARTERIAL BLOOD PO2 99.6 mmHg (80-100); ARTERIAL BLOOD TOTAL CO2 33.4 mmol/L (21-25)
[2020-01-05 09:27] LABS: ARTERIAL BLOOD FIO2 40%
--- NOTE | 2020-01-05 09:35 | PDOC CRITICAL CARE PROG REPORT ---
General Date:: 01/05/20 ICU Day:: 2 Ventilator Day:: 2 Resuscitation Status: Full Code Events in the past 12 to 24 Hours:: 64-year-old female with a history of COPD, "65 prior intubations" per patient, presents via EMS on CPAP in acute respiratory distress. Details of the events leading up to presentation are very limited as the patient is in extremis. EMS reports that the family members at the house have "all been sick". Patient was reported to be coughing up brown appearing sputum at the scene. Patient is unable to describe any exacerbating or alleviating factors given her acute respiratory distress. 01/04 The patient presented as noted with res[iratory distress and acute respiratory failure. She required intubation. CXR showed nop gross evidence of pneumonitis. ABGs have improved. Patient being treated with mechanical ventialtoion, steroids and nebulizers. She remains hemodynamically stable Physical Exam Vital Signs: Temp Pulse Resp BP Pulse Ox 97.2 F 70 10 L 93/58 L 99 01/05/20 08:28 01/05/20 08:15 01/05/20 08:15 01/05/20 07:56 01/05/20 08:15 Intake & Output 01/04/20 01/05/20 01/06/20 06:59 06:59 06:59 Intake Total 1000 1832 14 Output Total 1760 250 Balance 1000 72 -236 Weight 54.4 kg 56.1 kg Weight/Height Weight 56.1 kg Height 5 ft General appearance: PRESENT: no acute distress - Patien t intubated and sedated on the ventilator Head exam: PRESENT: atraumatic, normocephalic Eye exam: PRESENT: EOMI, PERRLA Ear exam: PRESENT: normal external ear exam Mouth exam: PRESENT: moist, neck supple Neck exam: ABSENT: carotid bruit Respiratory exam: PRESENT: prolonged expiratory phas. ABSENT: accessory muscle use Cardiovascular exam: PRESENT: RRR, +S1, +S2 Pulses: PRESENT: normal carotid pulses GI/Abdominal exam: PRESENT: soft. ABSENT: distended, tenderness Extremities exam: ABSENT: calf tenderness Neurological exam: PRESENT: other - sedated on the ventilator Tubes/Lines: PRESENT: Endotracheal Tube Laboratory/Radiographs Laboratory Results: 01/05/20 06:04 01/05/20 06:04 01/04/20 01/05/20 01/05/20 14:43 06:04 06:04 WBC 14.0 H RBC 3.12 L Hgb 8.9 L Hct 27.3 L MCV 88 MCH 28.4 MCHC 32.5 RDW 16.1 H Plt Count 234 Carbonic Acid 2.18 H HCO3/H2CO3 Ratio 15:1 ABG pH 7.27 L ABG pCO2 72.4 H* ABG pO2 77.5 L ABG HCO3 32.7 H ABG O2 Saturation 93.2 L ABG Base Excess 4.3 FiO2 40% Sodium 134.7 L Potassium 4.6 Chloride 103 Carbon Dioxide 29 Anion Gap 3 L BUN 18 Creatinine 0.61 Est GFR ( Amer) > 60 Glucose 104 Calcium 7.8 L 01/04/20 04:40 Troponin I 0.016 Impressions: Chest X-Ray 01/04/20 05:14 IMPRESSION: Mild interstitial edema with tiny bibasilar effusions copyright 2011 [employer]- All Rights Reserved Assessment and Plan - Diagnosis (1) Acute on chronic respiratory failure with hypoxia and hypercapnia Is this a current diagnosis for this admission?: Yes Plan: The patient was intubated on 01/03. this is the last of apparent multiple intub ations for hypercapneic resp. failure. Wea re checking her new ABG presenrtly. Does bnot have alot of secretions. Patient being treated with steroids and HHN. There does not appear to be grosss evidence of pneumonitis. Will likely trial her on SBT today. (2) Bipolar disorder Qualifiers: Active/Remission status: remission status unspecified Qualified Code(s): F31.9 - Bipolar disorder, unspecified Is this a current diagnosis for this admission?: Yes (3) Smoker Is this a current diagnosis for this admission?: Yes Critical Time Critical Time (minutes): 25 Level of Care: ICU -: 1. The care of a critical patient is a dynamic process. This note is a financial sales representative synopsis but static in nature. The timeframe for treatments given in order is not necessarily the actual time these treatments may have been done. 2. This patient requires critical care secondary to ongoing requirements for therapy not offered or safe outside the critical care environment. Transfer to a lower level of care will result in altered life or limb morbidity and mortality. 3. Multidisciplinary rounds completed. 4. ABCDE bundle addressed.
[2020-01-05] MEDS ORDERED: ASPIRIN 81 MG TABLET, ENT COATED PO SCH (10:00)
[2020-01-05] MEDS ORDERED: AMLODIPINE BESYLATE 5 MG TABLET PO SCH (10:00)
[2020-01-05] MEDS: NORMAL SALINE 1000 ML 1,000 ML IV PRN ×3 (12:15→18:00)
[2020-01-05] MEDS ORDERED: NORMAL SALINE 1000 ML 1,000 ML IV ONE (14:00)
[2020-01-05] MEDS: LEVOFLOXACIN 500 MG/D5W RTU 500 MG/100 ML RTUPB IV SCH (14:03)
[2020-01-05] MEDS ORDERED: NORMAL SALINE 500 ML IV ONE (14:15)
[2020-01-05] MEDS: DOXEPIN HCL 10 MG CAPSULE NG SCH (22:35)
[2020-01-05] MEDS: ATORVASTATIN CALCIUM 40 MG TABLET NG SCH (22:36)
[2020-01-06] MEDS: GABAPENTIN 300 MG CAPSULE NG SCH ×3 (01:25→17:45)
[2020-01-06] MEDS: IPRATROPIUM/ALBUTEROL 0.5-2.5 MG/3 ML AMPUL NEB SCH ×4 (02:11→20:21)
[2020-01-06] MEDS: NORMAL SALINE 1000 ML 1,000 ML IV PRN (03:59)
[2020-01-06] MEDS: PROPOFOL 1,000 MG/100 ML INFUS..BTL IV PRN (03:59)
[2020-01-06] MEDS: LEVOTHYROXINE SODIUM 0.05 MG TABLET NG SCH (06:33)
[2020-01-06] MEDS: INSULIN REG, HUMAN 100 UNIT/ML 3 ML VIAL (PYX) SUBCUT SCH ×3 (06:33→17:44)
--- NOTE | 2020-01-06 08:17 | PDOC CRITICAL CARE PROG REPORT ---
General ICU Day:: 3 Ventilator Day:: 3 Resuscitation Status: Full Code Events in the past 12 to 24 Hours:: 64-year-old female with a history of COPD, "65 prior intubations" per patient, presents via EMS on CPAP in acute respiratory distress. Details of the events leading up to presentation are very limited as the patient is in extremis. EMS reports that the family members at the house have "all been sick". Patient was reported to be coughing up brown appearing sputum at the scene. Patient is unable to describe any exacerbating or alleviating factors given her acute respiratory distress. 01/04 The patient presented as noted with res[iratory distress and acute respiratory failure. She required intubation. CXR showed nop gross evidence of pneumonitis. ABGs have improved. Patient being treated with mechanical ventialtoion, steroids and nebulizers. She remains hemodynamically stable 01/05 the patient had a quiet night. Has some purulent appearing secretions. we started levaquin pending culture report. Vitals are stable. patient on BT , PS of 20. We are weaning the PS down. Does not sound quite as wheezy today. Physical Exam Vital Signs: Temp Pulse Resp BP Pulse Ox 98.1 F 72 10 L 113/64 99 01/05/20 16:00 01/06/20 07:41 01/06/20 06:29 01/06/20 06:29 01/06/20 06:29 Intake & Output 01/05/20 01/06/20 01/07/20 06:59 06:59 06:59 Intake Total 1832 3188 Output Total 1760 2550 Balance 72 638 Weight 56.1 kg 58 kg Weight/Height Weight 58 kg Height 5 ft General appearance: PRESENT: no acute distress Head exam: PRESENT: atraumatic, normocephalic Eye exam: PRESENT: EOMI Mouth exam: PRESENT: moist Neck exam: ABSENT: tenderness, thyromegaly Respiratory exam: PRESENT: rhonchi. ABSENT: accessory muscle use Cardiovascular exam: PRESENT: RRR, systolic murmur Pulses: PRESENT: normal dorsalis pedis pul GI/Abdominal exam: PRESENT: normal bowel sounds, soft Rectal exam: PRESENT: deferred Extremities exam: ABSENT: calf tenderness, joint swelling Musculoskeletal exam: PRESENT: full ROM Neurological exam: PRESENT: alert, awake Tubes/Lines: PRESENT: Endotracheal Tube Laboratory/Radiographs Laboratory Results: 01/05/20 06:04 01/05/20 06:04 01/05/20 09:12 Carbonic Acid 1.77 H HCO3/H2CO3 Ratio 17:1 ABG pH 7.35 ABG pCO2 58.9 H ABG pO2 99.6 ABG HCO3 31.6 H ABG O2 Saturation 97.1 ABG Base Excess 4.6 FiO2 40% 01/04/20 04:40 Troponin I 0.016 Impressions: Chest X-Ray 01/04/20 05:14 IMPRESSION: Mild interstitial edema with tiny bibasilar effusions copyright 2010 [employer]- All Rights Reserved Assessment and Plan - Diagnosis (1) Acute on chronic respiratory failure with hypoxia and hypercapnia Is this a current diagnosis for this admission?: Yes Plan: The patient was intubated on 01/03. this is the last of apparent multiple intubations for hypercapneic resp. failure. Wea re checking her new ABG presenrtly. Does not have alot of secretions. Patient being treated with steroids and HHN. There does not appear to be gross evidence of pneumonitis. Will likely trial her on SBT today. 01/05 The patient ios on SBT. Remains on small dose of sedation. I am hopefull to get offf the rest of her sedation and get her extubated perhaps today. (2) Bipolar disorder Qualifiers: Active/Remission status: remission status unspecified Qualified Code(s): F31.9 - Bipolar disorder, unspecified Is this a current diagnosis for this admission?: Yes Plan: The patient is taking her uusual meds whic includes Sinequan, Neurontin, Wellbutrin and Celexa (3) Smoker Is this a current diagnosis for this admission?: Yes Critical Time Critical Time (minutes): 25 Level of Care: ICU -: 1. The care of a critical patient is a dynamic process. This note is a hardware supplies sales representative synopsis but static in nature. The timeframe for treatments giv en in order is not necessarily the actual time these treatments may have been done. 2. This patient requires critical care secondary to ongoing requirements for therapy not offered or safe outside the critical care environment. Transfer to a lower level of care will result in altered life or limb morbidity and mortality. 3. Multidisciplinary rounds completed. 4. ABCDE bundle addressed.
[2020-01-06] MEDS: LEVOFLOXACIN 500 MG/D5W RTU 500 MG/100 ML RTUPB IV SCH (08:56)
[2020-01-06] MEDS: FUROSEMIDE 40 MG TABLET PO SCH (08:56)
[2020-01-06] MEDS: BUPROPION HCL 75 MG TABLET NG SCH ×2 (09:05→17:45)
[2020-01-06] MEDS: ASPIRIN 81 MG TABLET, CHEWABLE NG SCH (09:05)
[2020-01-06] MEDS: HYDROXYZINE PAMOATE 25 MG CAPSULE PO SCH ×4 (09:05→21:33)
[2020-01-06] MEDS: ENOXAPARIN SODIUM INJ 40 MG/0.4 ML DISP.SYRIN SUBCUT SCH (09:06)
[2020-01-06] MEDS: CARVEDILOL 3.125 MG TABLET NG SCH ×2 (09:06→21:33)
[2020-01-06] MEDS: CITALOPRAM HYDROBROMIDE 20 MG TABLET NG SCH (09:06)
[2020-01-06] MEDS: FAMOTIDINE INJ/PF 20 MG/2 ML SDV IV SCH (09:07)
[2020-01-06] MEDS: METHYLPREDNISOLONE INJ 40 MG/1 ML SDV IV SCH ×2 (09:07→21:30)
[2020-01-06] MEDS: AMLODIPINE BESYLATE 5 MG TABLET NG SCH (09:07)
--- NOTE | 2020-01-06 09:09 | RADIOLOGY REPORT (SQ) ---
EXAM DESCRIPTION: CHEST SINGLE VIEW IMAGES COMPLETED DATE/TIME: 01/06/2020 8:50 am REASON FOR STUDY: resp failure COMPARISON: 01/04/2020 EXAM PARAMETERS: NUMBER OF VIEWS: One view. TECHNIQUE: Single frontal radiographic view of the chest acquired. RADIATION DOSE: NA LIMITATIONS: None. FINDINGS: LUNGS AND PLEURA: Very small bilateral pleural effusions. Mild prominence of the interst itial markings more so in the lower lungs may represent edema. No pneumothorax. MEDIASTINUM AND HILAR STRUCTURES: No masses. Contour normal. HEART AND VASCULAR STRUCTURES: Stable appearance. BONES: No acute findings. HARDWARE: Support lines are unchanged. OTHER: No other significant finding. IMPRESSION: 1. No significant interval changes since the prior study dated 01/04/2020. TECHNICAL DOCUMENTATION: JOB ID: [id number] 2010 [employer]- All Rights Reserved Reading location - IP/workstation name: [email or web address]
[2020-01-06] MEDS: DOXEPIN HCL 10 MG CAPSULE NG SCH (21:31)
[2020-01-06] MEDS: ATORVASTATIN CALCIUM 40 MG TABLET NG SCH (21:32)
[2020-01-07] MEDS: IPRATROPIUM/ALBUTEROL 0.5-2.5 MG/3 ML AMPUL NEB SCH ×4 (02:34→21:30)
[2020-01-07 04:44] LABS: HEMATOCRIT 29.3 % (36.0-47.0); HEMOGLOBIN 9.8 g/dL (12.0-15.5); MEAN CORPUSCULAR HEMOGLOBIN 28.6 pg (27.0-33.4); MEAN CORPUSCULAR HGB CONC 33.4 g/dL (32.0-36.0); MEAN CORPUSCULAR VOLUME 86 fl (80-97); PLATELET COUNT 355 10^3/uL (150-450); RED BLOOD COUNT 3.42 10^6/uL (3.72-5.28); RED CELL DISTRIBUTION WIDTH 16.3 % (11.5-14.0); WHITE BLOOD COUNT 9.3 10^3/uL (4.0-10.5)
[2020-01-07 05:05] LABS: BLOOD UREA NITROGEN 32 mg/dL (7-20); CALCIUM 8.1 mg/dL (8.4-10.2); CARBON DIOXIDE 34 mmol/L (22-30); GLUCOSE 121 mg/dL (75-110); POTASSIUM 3.8 mmol/L (3.6-5.0)
[2020-01-07 05:11] LABS: ANION GAP 6 (5-19); CHLORIDE 99 mmol/L (98-107)
[2020-01-07 05:16] LABS: ABSOLUTE LYMPHOCYTES# (MANUAL) 1.2 10^3/uL (0.5-4.7); ABSOLUTE MONOCYTES # (MANUAL) 0.2 10^3/uL (0.1-1.4); BAND NEUTROPHILS % (MANUAL) 1 % (3-5); BASOPHILS % (MANUAL) 0 % (0-2); EOSINOPHILS % (MANUAL) 0 % (0-6); LYMPHOCYTES % (MANUAL) 13 % (13-45); MONOCYTES % (MANUAL) 2 % (3-13); SEGMENTED NEUTROPHILS % (MAN) 84 % (42-78); TOTAL CELLS COUNTED 100
[2020-01-07 05:17] LABS: ANISOCYTOSIS 1+; PLATELET COMMENT ADEQUATE; TEAR DROP CELLS SLIGHT
[2020-01-07] MEDS: GABAPENTIN 300 MG CAPSULE NG SCH ×2 (06:09→10:34)
[2020-01-07] MEDS: LEVOTHYROXINE SODIUM 0.05 MG TABLET NG SCH (06:09)
--- NOTE | 2020-01-07 08:06 | PDOC CRITICAL CARE PROG REPORT ---
General Date:: 01/07/20 ICU Day:: 4 Hospital Day:: 4 Resuscitation Status: Full Code Events in the past 12 to 24 Hours:: 64-year-old female with a history of COPD, "65 prior intubations" per patient, presents via EMS on CPAP in acute respiratory distress. Details of the events leading up to presentation are very limited as the patient is in extremis. EMS reports that the family members at the house have "all been sick". Patient was reported to be coughing up brown appearing sputum at the scene. Patient is unable to describe any exacerbating or alleviating factors given her acute respiratory distress. 01/04 The patient presented as noted with respiratory distress and acute respiratory failure. She required intubation. CXR showed nop gross evidence of pneumonitis. ABGs have improved. Patient being treated with mechanical ventiltion, steroids and nebulizers. She remains hemodynamically stable 01/05 the patient had a quiet night. Has some purulent appearing secretions. we started levaquin pending culture report. Vitals are stable. patient on BT , PS of 20. We are weaning the PS down. Does not sound quite as wheezy today. 01/06 The patient was extubated yesterday. Has done well since than. Can be transferred to the regular floor. Physical Exam Vital Signs: Temp Pulse Resp BP Pulse Ox 98.1 F 81 12 121/64 97 01/07/20 07:52 01/07/20 07:52 01/07/20 07:52 01/07/20 07:52 01/07/20 07:52 Intake & Output 01/06/20 01/07/20 01/08/20 06:59 06:59 06:59 Intake Total 5728 361 Output Total 0790 8665 Balance 638 -3714 Weight 58 kg 55.7 kg Weight/Height Weight 55.7 kg Height 5 ft General appearance: PRESENT: cooperative Head exam: PRESENT: atraumatic, normocephalic Eye exam: PRESENT: conjunctiva pink Mouth exam: PRESENT: moist, neck supple Neck exam: PRESENT: full ROM. ABSENT: JVD, thyromegaly Respiratory exam: PRESENT: clear to auscultation lopez, unlabored. ABSENT: stridor Cardiovascular exam: PRESENT: RRR, +S1, +S2 Pulses: PRESENT: +1 pedal pulses bilateral Extremities exam: ABSENT: clubbing, joint swelling Neurological exam: PRESENT: alert, awake, oriented to person, oriented to time Laboratory/Radiographs Laboratory Results: 01/07/20 04:05 01/07/20 04:05 01/07/20 01/07/20 04:05 04:05 WBC 9.3 RBC 3.42 L Hgb 9.8 L Hct 29.3 L MCV 86 MCH 28.6 MCHC 33.4 RDW 16.3 H Plt Count 355 Seg Neutrophils % Not Reportable Sodium 138.6 Potassium 3.8 Chloride 99 Carbon Dioxide 34 H Anion Gap 6 BUN 32 H Creatinine 0.72 Est GFR ( Amer) > 60 Glucose 121 H Calcium 8.1 L 01/04/20 04:40 Troponin I 0.016 Impressions: Chest X-Ray 01/06/20 07:30 IMPRESSION: 1. No significant interval changes since the prior study dated 01/04/2020. Assessment and Plan - Diagnosis (1) Acute on chronic respiratory failure with hypoxia and hypercapnia Is this a current diagnosis for this admission?: Yes Plan: The patient was intubated on 01/03. this is the last of apparent multiple intubations for hypercapneic resp. failure. Wea re checking her new ABG presenrtly. Does not have alot of secretions. Patient being treated with steroids and HHN. There does not appear to be gross evidence of pneumonitis. Will likely trial her on SBT today. 01/05 The patient is on SBT. Remains on small dose of sedation. I am hopefull to get offf the rest of her sedation and get her extubated perhaps today. 01/06 The patient was extubated ands looks well. No major complants. Wheeze is better (2) Bipolar disorder Qualifiers: Active/Remission status: remission status unspecified Qualified Code(s): F31.9 - Bipolar disorder, unspecified Is this a current diagnosis for this admission?: Yes Plan: The patient is taking her uusual meds whic includes Sinequan, Neurontin, Wellbutrin and Celexa (3) Smoker Is this a current diagnosis for this admission?: No Plan: Ththe patient said she stopped smoking for good about 3 weeks ago. Critical Time Critical Time (minutes): 15 Level of Care: ICU -: 1. The care of a critical patient is a dynamic process. This note is a loss prevention representative synopsis but static in nature. The timeframe for treatments given in order is not necessarily the actual time these treatments may have been done. 2. This patient requires critical care secondary to ongoing requirements for therapy not offered or safe outside the critical care environment. Transfer to a lower level of care will result in altered life or limb morbidity and mortality. 3. Multidisciplinary rounds completed. 4. ABCDE bundle addressed.
[2020-01-07] MEDS: LEVOFLOXACIN 500 MG/D5W RTU 500 MG/100 ML RTUPB IV SCH (08:37)
[2020-01-07] MEDS ORDERED: FUROSEMIDE 40 MG TABLET NG SCH (09:00)
[2020-01-07] MEDS: FUROSEMIDE 40 MG TABLET PO SCH (09:11)
[2020-01-07] MEDS ORDERED: PREDNISONE 20 MG TABLET NG SCH (10:00)
[2020-01-07] MEDS ORDERED: HYDROXYZINE PAMOATE 25 MG CAPSULE NG SCH (10:00)
--- NOTE | 2020-01-07 10:02 | CRITICAL CARE ADMISSION REPORT ---
HPI Date:: 01/04/20 Time:: 09:00 Reason for ICU Reason:: Intubated from a COPD exacerbation. Admission Date/Time & PCP: Admission Date/Time: 01/04/20 08:10 Primary Care Provider: OCTAVIO MOLINA HPI: This patient is a 64 yo woman, well known to [facility] for the same, who comes to the ED with difficulty breathing. She has known COPD, said to stilll smoke, and has been intubated a number of times recently. She was talking some on arrival, apparently becamr lethargic and was intubated for COPD. She is currently intubated, sedated and no other information can be obtained. History obtained from:: Dr. Coyne and old records. - Diagnosis/Plan (1) Acute respiratory failure Qualifiers: Respiratory failure complication: unspecified whether with hypoxia or hypercapnia Qualified Code(s): J96.00 - Acute respiratory failure, unspecified whether with hypoxia or hypercapnia Is this a current diagnosis for this admission?: Yes Plan: Multiple previous intubations. Same for this admission. Keep intubated. Her lungs are not wheezing but do sound tight. Give IV solumedrol and nebulizers and will try and extubate soon. (2) Bipolar disorder Qualifiers: Active/Remission status: remission status unspecified Qualified Code(s): F31.9 - Bipolar disorder, unspecified Is this a current diagnosis for this admission?: Yes Plan: Continue home madications. (3) COPD with acute exacerbation Is this a current diagnosis for this admission?: Yes Plan: She should stop smoking and according to old records has been counseled. Plan Summary: Try to wean and extubate shortly. Past Medical History Cardiac Medical History: Reports: Congestive Heart Failure, Coronary Artery Disease, Myocardial Infarction, Hypertension Pulmonary Medical History: Reports: Chronic Obstructive Pulmonary Disease (COPD), Intubation, Pneumonia, Respiratory Failure Denies: Tuberculosis Neurological Medical History: Denies: Seizures Endocrine Medical History: Reports: Diabetes Mellitus Type 2, Hypothyroidism Musculoskeltal Medical History: Reports: Fibromyalgia Psychiatric Medical History: Reports: Bipolar Disorder, Depression Past Surgical History Past Surgical History: Reports: Appendectomy, Cardiac Catheterization, Section Denies: Pacemaker Social/Family History - Social History Smoking Status: Current Every Day Smoker Frequency of Alcohol Use: None Hx Recreational Drug Use: No Drugs: None Hx Prescription Drug Abuse: No - Medication/Allergies Home Medications: Buprenorphine HCl/Naloxone HCl [Suboxone 8 mg-2 mg Sl Film] 2.5 film SL DAILY MDD 3 FILMS 01/20/18 Levothyroxine Sodium [Synthroid 0.05 mg Tablet] 50 mcg PO Q6AM 05/03/18 Albuterol Sulfate [Ventolin Hfa 8 gm Mdi] 2 puff IH Q4HP PRN 08/20/19 Amlodipine Besylate [Norvasc 5 mg Tablet] 5 mg PO DAILY 08/20/19 Atorvastatin Calcium [Lipitor 40 mg Tablet] 40 mg PO QHS 08/20/19 Carvedilol [Coreg 3.125 mg Tablet] 3.125 mg PO Q12 08/20/19 Citalopram Hydrobromide [Celexa 20 mg Tablet] 20 mg PO DAILY 08/20/19 Doxepin HCl [Sinequan 10 mg Capsule] 20 mg PO QHS 08/20/19 Furosemide [Lasix 40 mg Tablet] 40 mg PO QAM 08/20/19 Albuterol Sulfate [Ventolin 0.083% Neb 2.5 mg/3 mL Ampul] 3 ml NEB TID 09/22/19 Ipratropium/Albuterol Sulfate [Combivent Respimat 4 gm Mdi] 1 puff IH QID 09/22/19 Aspirin [Ecotrin 81 mg EC Tablet] 81 mg PO DAILY 01/04/20 Bupropion HCl [Bupropion Xl] 150 mg PO DAILY 01/04/20 Gabapentin [Neurontin 300 mg Capsule] 600 mg PO Q8 01/04/20 Hydroxyzine Pamoate [Vistaril] 25 mg PO QID 01/04/20 Prednisone [Deltasone 10 mg Tablet] 60 mg PO DAILY 01/04/20 Allergies/Adverse Reactions: zolpidem [From Ambien] Adverse Reaction (Verified 08/22/19 09:05) Review of Systems ROS unobtainable: Due to endotracheal tube, Due to mental status Physical Exam Vital Signs: Temp Pulse Resp BP Pulse Ox 98.1 F 81 18 121/64 98 01/07/20 07:52 01/07/20 08:14 01/07/20 08:14 01/07/20 07:52 01/07/20 08:14 Intake & Output 01/06/20 01/07/20 01/08/20 06:59 06:59 06:59 Intake Total 3188 361 Output Total 3630 0835 Balance 638 -3366 Weight 58 kg 55.7 kg Weight/Height Weight 55.7 kg Height 5 ft General appearance: PRESENT: no acute distress, thin Head exam: PRESENT: atraumatic, normocephalic Eye exam: PRESENT: conjunctiva pink, EOMI, PERRLA. ABSENT: scleral icterus Ear exam: PRESENT: normal external ear exam Mouth exam: PRESENT: moist, tongue midline Respiratory exam: PRESENT: clear to auscultation lopez, decreased breath sounds, other - Lungs sound tight.. ABSENT: rales, rhonchi, wheezes Cardiovascular exam: PRESENT: RRR, tachycardia. ABSENT: diastolic murmur, rubs, systolic murmur GI/Abdominal exam: PRESENT: normal bowel sounds, soft. ABSENT: distended, guarding, mass, organolmegaly, rebound, tenderness Rectal exam: PRESENT: deferred Gentrourinary exam: PRESENT: indwelling catheter Extremities exam: PRESENT: full ROM. ABSENT: calf tenderness, clubbing, pedal e kevin Musculoskeletal exam: PRESENT: normal inspection Neurological exam: PRESENT: other - Sedated Skin exam: PRESENT: dry, intact, warm. ABSENT: cyanosis, rash Tubes/Lines: PRESENT: Endotracheal Tube, Nasogastic Tube Laboratory/Radiographs Laboratory Results: 01/07/20 04:05 01/07/20 04:05 01/07/20 01/07/20 04:05 04:05 WBC 9.3 RBC 3.42 L Hgb 9.8 L Hct 29.3 L MCV 86 MCH 28.6 MCHC 33.4 RDW 16.3 H Plt Count 355 Seg Neutrophils % Not Reportable Sodium 138.6 Potassium 3.8 Chloride 99 Carbon Dioxide 34 H Anion Gap 6 BUN 32 H Creatinine 0.72 Est GFR ( Amer) > 60 Glucose 121 H Calcium 8.1 L 01/04/20 04:40 Troponin I 0.016 Impressions: Chest X-Ray 01/06/20 07:30 IMPRESSION: 1. No significant interval changes since the prior study dated 01/04/2020. EKG: Sinus tachycardia, R-axis. All labs, radiographs, diagnostic studies and EKGs were personally reviewed: Yes In addition, reports of radiographic and diagnostic studies were read: Yes Critical Time Critical Time (minutes): 40 -: The care of a critically ill patient is dynamic. This note represents a static moment in the admission process. Orders and treatments may be given simultaneously and urgently, and time is not financial services sales representative of the treatment process. This patient requires Critical Care secondary to life threatening organ or limb dysfunction. Without Critical Care services, the patient is at risk for increased mortality and morbidity.
[2020-01-07] MEDS ORDERED: ACETAMINOPHEN 325 MG TABLET PO PRN (10:30)
[2020-01-07] MEDS: AMLODIPINE BESYLATE 5 MG TABLET PO SCH (10:32)
[2020-01-07] MEDS: CITALOPRAM HYDROBROMIDE 20 MG TABLET NG SCH (10:32)
[2020-01-07] MEDS: ASPIRIN 81 MG TABLET, CHEWABLE NG SCH (10:32)
[2020-01-07] MEDS: BUPROPION HCL 75 MG TABLET NG SCH (10:33)
[2020-01-07] MEDS: ENOXAPARIN SODIUM INJ 40 MG/0.4 ML DISP.SYRIN SUBCUT SCH (10:33)
[2020-01-07] MEDS: PREDNISONE 20 MG TABLET PO SCH (10:33)
[2020-01-07] MEDS: CARVEDILOL 3.125 MG TABLET NG SCH (10:33)
[2020-01-07] MEDS: AMLODIPINE BESYLATE 5 MG TABLET NG SCH (10:39)
--- NOTE | 2020-01-07 13:28 | PDOC PROGRESS REPORT ---
Subjective Progress Note for:: 01/07/20 Subjective:: Patient is doing well. Patient downgraded from ICU today after treatment for respiratory failure 2/2 COPD exacerbation. Was initially intubated but extubated yestedat morning. Doing well currently. COVID test is negative. Reason For Visit: COPD EXACERBATION. REQUIRING INTUBATION. Physical Exam Vital Signs: Temp Pulse Resp BP Pulse Ox 98.1 F 81 12 124/66 100 01/07/20 10:00 01/07/20 08:14 01/07/20 10:01 01/07/20 10:00 01/07/20 10:01 Intake & Output 01/06/20 01/07/20 01/08/20 06:59 06:59 06:59 Intake Total 3188 361 Output Total 2550 0985 Balance 638 -3364 Weight 58 kg 55.7 kg General appearance: PRESENT: no acute distress, cooperative Neck exam: ABSENT: JVD Respiratory exam: PRESENT: symmetrical, unlabored, wheezes. ABSENT: tachypnea Neurological exam: PRESENT: alert, awake Results Laboratory Results: 01/07/20 04:05 01/07/20 04:05 01/07/20 01/07/20 04:05 04:05 WBC 9.3 RBC 3.42 L Hgb 9.8 L Hct 29.3 L MCV 86 MCH 28.6 MCHC 33.4 RDW 16.3 H Plt Count 355 Seg Neutrophils % Not Reportable Sodium 138.6 Potassium 3.8 Chloride 99 Carbon Dioxide 34 H Anion Gap 6 BUN 32 H Creatinine 0.72 Est GFR ( Amer) > 60 Glucose 121 H Calcium 8.1 L 01/04/20 04:40 Troponin I 0.016 Impressions: Chest X-Ray 01/06/20 07:30 IMPRESSION: 1. No significant interval changes since the prior study dated 01/04/2020. Assessment and Plan - Diagnosis (1) Acute on chronic respiratory failure with hypoxia and hypercapnia Is this a current diagnosis for this admission?: Yes Plan: 2/2 copd exacerbation. Extubated 01/05. (2) COPD with acute exacerbation Is this a current diagnosis for this admission?: Yes Plan: Continue nebs, levaquin and steroids. (3) Bipolar disorder Qualifiers: Active/Remission status: remission status unspecified Qualified Code(s): F31.9 - Bipolar disorder, unspecified Is this a current diagnosis for this admission?: Yes (4) HTN (hypertension) Qualifiers: - Time Time Spent with patient: 15-24 minutes Anticipated Discharge Disposition: Home, Self Care Anticipated Discharge Timeframe: within 48 hours
[2020-01-07] MEDS: HYDROXYZINE PAMOATE 25 MG CAPSULE PO SCH ×3 (14:10→22:07)
[2020-01-07] MEDS ORDERED: BUPRENORPHINE HCL 2 MG SUBLINGUAL TABLET SL ONE (17:00)
[2020-01-07] MEDS: BUPROPION HCL 75 MG TABLET PO SCH (17:55)
[2020-01-07] MEDS: GABAPENTIN 300 MG CAPSULE PO SCH (17:55)
[2020-01-07] MEDS ORDERED: ATORVASTATIN CALCIUM 40 MG TABLET PO SCH (22:00)
[2020-01-07] MEDS ORDERED: DOXEPIN HCL 10 MG CAPSULE PO SCH (22:00)
[2020-01-07] MEDS: CARVEDILOL 3.125 MG TABLET PO SCH (22:08)
[2020-01-08] MEDS: GABAPENTIN 300 MG CAPSULE PO SCH ×2 (01:30→09:09)
[2020-01-08] MEDS: IPRATROPIUM/ALBUTEROL 0.5-2.5 MG/3 ML AMPUL NEB SCH ×3 (02:12→14:44)
[2020-01-08] MEDS ORDERED: LEVOTHYROXINE SODIUM 0.05 MG TABLET PO SCH (06:00)
[2020-01-08] MEDS ORDERED: FUROSEMIDE 40 MG TABLET PO SCH (08:00)
[2020-01-08] MEDS: CARVEDILOL 3.125 MG TABLET PO SCH (09:07)
[2020-01-08] MEDS: PREDNISONE 20 MG TABLET PO SCH (09:09)
[2020-01-08] MEDS: HYDROXYZINE PAMOATE 25 MG CAPSULE PO SCH (09:09)
[2020-01-08] MEDS: BUPROPION HCL 75 MG TABLET PO SCH (09:09)
[2020-01-08] MEDS: AMLODIPINE BESYLATE 5 MG TABLET PO SCH (09:10)
[2020-01-08] MEDS: ENOXAPARIN SODIUM INJ 40 MG/0.4 ML DISP.SYRIN SUBCUT SCH (09:17)
[2020-01-08] MEDS ORDERED: CITALOPRAM HYDROBROMIDE 20 MG TABLET PO SCH (10:00)
[2020-01-08] MEDS ORDERED: BUPRENORPHINE HCL 2 MG SUBLINGUAL TABLET SL SCH (10:00)
[2020-01-08] MEDS ORDERED: ASPIRIN 81 MG TABLET, CHEWABLE PO SCH (10:00)
[2020-01-08] MEDS ORDERED: LEVOFLOXACIN 500 MG TABLET PO SCH (10:00)
[2020-01-08] MEDS ORDERED: AMOXICILLIN TR/POT CLAVULANATE 875-125 MG TAB PO SCH (10:30)
[2020-01-08 13:00] VITALS: BP 121/64
--- NOTE | 2020-01-08 13:18 | PDOC DISCHARGE SUMMARY ---
Impression - Admit/DC Date/PCP Admission Date/Primary Care Provider: 01/04/20 08:10 OCTAVIO MOLINA Discharge Date: 01/08/20 - Discharge Diagnosis (1) Acute on chronic respiratory failure with hypoxia and hypercapnia Is this a current diagnosis for this admission?: Yes (2) COPD with acute exacerbation Is this a current diagnosis for this admission?: Yes (3) Acute bacterial bronchitis Is this a current diagnosis for this admission?: Yes (4) COPD, group D, by GOLD 2017 classification Is this a current diagnosis for this admission?: Yes (5) Bipolar disorder Is this a current diagnosis for this admission?: Yes (6) HTN (hypertension) Is this a current diagnosis for this admission?: Yes - Additional Information Resuscitation Status: Full Code Discharge Diet: As Tolerated Discharge Activity: Activity As Tolerated Referrals: MELLO VICKERS MD [ACTIVE PROVISIONAL STAFF] - QIAN MCGEE FNP-C [Primary Care Provider] - Prescriptions: Amoxicillin/Potassium Clav [Augmentin 875-125 Tablet] 1 tab PO Q12 3 Days #6 tablet Ipratropium/Albuterol Sulfate [Combivent Respimat 4 gm Mdi] 1 puff IH QIDP PRN #1 inhaler PRN Reason: Prednisone [Deltasone 20 mg Tablet] 40 mg PO DAILY 3 Days #6 tablet Fluticasone/Umeclidin/Vilanter [Trelegy 100-62.5-25 Mcg Ellipta 14 Dose/Dpi] 1 inh IH DAILY #2 inhaler Albuterol Sulfate [Ventolin 0.083% Neb 2.5 mg/3 mL Ampul] 3 ml NEB TIDP PRN #60 ml PRN Reason: Albuterol Sulfate [Ventolin Hfa 8 gm Mdi] 2 puff IH Q4HP PRN #1 inhaler PRN Reason: Shortness Of Breath Home Medications: Levothyroxine Sodium [Synthroid 0.05 mg Tablet] 50 mcg PO Q6AM 05/03/18 Amlodipine Besylate [Norvasc 5 mg Tablet] 5 mg PO DAILY 08/20/19 Atorvastatin Calcium [Lipitor 40 mg Tablet] 40 mg PO QHS 08/20/19 Carvedilol [Coreg 3.125 mg Tablet] 3.125 mg PO Q12 08/20/19 Citalopram Hydrobromide [Celexa 20 mg Tablet] 20 mg PO DAILY 08/20/19 Doxepin HCl [Sinequan 10 mg Capsule] 20 mg PO QHS 08/20/19 Furosemide [Lasix 40 mg Tablet] 40 mg PO QAM 08/20/19 Aspirin [Ecotrin 81 mg EC Tablet] 81 mg PO DAILY 01/04/20 Bupropion HCl [Bupropion Xl] 150 mg PO DAILY 01/04/20 Gabapentin [Neurontin 300 mg Capsule] 600 mg PO Q8 01/04/20 Hydroxyzine Pamoate [Vistaril] 25 mg PO QID 01/04/20 Albuterol Sulfate [Ventolin 0.083% Neb 2.5 mg/3 mL Ampul] 3 ml NEB TIDP PRN #60 ml 01/08/20 Albuterol Sulfate [Ventolin Hfa 8 gm Mdi] 2 puff IH Q4HP PRN #1 inhaler 01/08/20 Amoxicillin/Potassium Clav [Augmentin 875-125 Tablet] 1 tab PO Q12 3 Days #6 tablet 01/08/20 Buprenorphine HCl/Naloxone HCl [Suboxone 8 mg-2 mg Sl Film] 1.5 film SL DAILY #0 MDD 3 FILMS 01/08/20 Fluticasone/Umeclidin/Vilanter [Trelegy 100-62.5-25 Mcg Ellipta 14 Dose/Dpi] 1 inh IH DAILY #2 inhaler 01/08/20 Ipratropium/Albuterol Sulfate [Combivent Respimat 4 gm Mdi] 1 puff IH QIDP PRN #1 inhaler 01/08/20 Prednisone [Deltasone 20 mg Tablet] 40 mg PO DAILY 3 Days #6 tablet 01/08/20 History of Present Illiness History of Present Illness: According to admitting provider: This patient is a 64 yo woman, well known to [facility] for the same, who comes to the ED with difficulty breathing. She has known COPD, said to stilll smoke, and has been intubated a number of times recently. She was talking some on arrival, apparently became lethargic and was intubated for COPD. She is currently intubated, sedated and no other information can be obtained. Hospital Course Hospital Course: Patient was admitted to the hospital with acute on chronic hypercapnic and hypoxic respiratory failure secondary to COPD exacerbation. Initially, blood gas revealed significant hypercapnia. Patient was subsequently intubated and taken directly to the ICU. Patient was also notably hypothermic at a point during her initial presentation. Initial blood work revealed leukocytosis of 19,000. Patient was treated for COPD exacerbation with frequent bronchodilator treatments, IV Solu-Medrol which has been later changed to prednisone as well as IV ceftriaxone and azithromycin. Chest x-ray did not show any findings consistent with consolidation or pneumonia but did show some interstitial changes. COVID-19 test was negative. Sputum culture was positive for group B s treptococcus which is likely caused acute bacterial bronchitis precipitating a COPD flare. Patient was extubated 2 mornings ago and downgraded from the ICU yesterday morning to the medical floor. Patient has been doing well in terms of her respiratory status. She is on her baseline 3 L of home oxygen with adequate oxygen saturation. This morning patient is eager to go home. I did have patient work with physical therapy today and she did quite well. I also had a discussion with her about hospice or palliative care especially given her frequent hospitalizations and intubations from COPD exacerbation. I had this conversation with her daughter as well. Patient declines hospice at this time. I will however have palliative care follow-up with patient as outpatient. I have written patient new prescription for Trelegy to be used in place of her Symbicort given she has COPD GOLD Group D. Giving her referral to follow-up with pulmonology as outpatient. Also given her scripts for renewal of her inhaler and nebulizer solutions as well as for a few days of Augmentin. She states she has all her oxygen equipment at home and have confirmed this with her daughter. She has been set up with home health and [facility] to check up on her while at home. Physical Exam Vital Signs: Temp Pulse Resp BP Pulse Ox 98.0 F 73 18 121/64 96 01/08/20 12:53 01/08/20 12:53 01/08/20 12:53 01/08/20 12:53 01/08/20 12:53 Intake & Output 01/07/20 01/08/20 01/09/20 06:59 06:59 06:59 Intake Total 361 1190 Output Total 5864 8885 Balance -6864 -1235 Weight 55.7 kg 54.1 kg General appearance: PRESENT: no acute distress, cooperative Neck exam: ABSENT: JVD Respiratory exam: PRESENT: prolonged expiratory phas, symmetrical, unlabored, wheezes - very mild expiratory. ABSENT: accessory muscle use, stridor, tachy pnea Cardiovascular exam: PRESENT: RRR, +S1, +S2. ABSENT: tachycardia GI/Abdominal exam: PRESENT: soft. ABSENT: rebound, rigid, tenderness Musculoskeletal exam: PRESENT: ambulatory Neurological exam: PRESENT: alert, awake, oriented to person, oriented to place, oriented to time Results Laboratory Results: WBC 9.3 10^3/uL (4.0-10.5) 01/07/20 04:05 RBC 3.42 10^6/uL (3.72-5.28) L 01/07/20 04:05 Hgb 9.8 g/dL (12.0-15.5) L 01/07/20 04:05 Hct 29.3 % (36.0-47.0) L 01/07/20 04:05 MCV 86 fl (80-97) 01/07/20 04:05 MCH 28.6 pg (27.0-33.4) 01/07/20 04:05 MCHC 33.4 g/dL (32.0-36.0) 01/07/20 04:05 RDW 16.3 % (11.5-14.0) H 01/07/20 04:05 Plt Count 355 10^3/uL (150-450) 01/07/20 04:05 Lymph % (Auto) Not Reportable 01/07/20 04:05 [place] % (Auto) Not Reportable 01/07/20 04:05 Eos % (Auto) Not Reportable 01/07/20 04:05 Baso % (Auto) Not Reportable 01/07/20 04:05 Absolute Neuts (auto) Not Reportable 01/07/20 04:05 Absolute Lymphs (auto) Not Reportable 01/07/20 04:05 Absolute Monos (auto) Not Reportable 01/07/20 04:05 Absolute Eos (auto) Not Reportable 01/07/20 04:05 Absolute Basos (auto) Not Reportable 01/07/20 04:05 Total Counted 100 01/07/20 04:05 Seg Neutrophils % Not Reportable 01/07/20 04:05 Seg Neuts % (Manual) 84 % (42-78) H 01/07/20 04:05 Band Neutrophils % 1 % (3-5) L 01/07/20 04:05 Lymphocytes % (Manual) 13 % (13-45) 01/07/20 04:05 Monocytes % (Manual) 2 % (3-13) L 01/07/20 04:05 Eosinophils % (Manual) 0 % (0-6) 01/07/20 04:05 Basophils % (Manual) 0 % (0-2) 01/07/20 04:05 Abs Neuts (Manual) 7.9 10^3/uL (1.7-8.2) 01/07/20 04:05 Abs Lymphs (Manual) 1.2 10^3/uL (0.5-4.7) 01/07/20 04:05 Abs Monocytes (Manual) 0.2 10^3/uL (0.1-1.4) 01/07/20 04:05 Absolute Eos (Manual) 0.0 10^3/uL (0.0-0.6) 01/07/20 04:05 Abs Basophils (Manual) 0.0 10^3/uL (0.0-0.2) 01/07/20 04:05 Platelet Comment ADEQUATE 01/07/20 04:05 Polychromasia SLIGHT 01/04/20 04:40 Anisocytosis 1+ 01/07/20 04:05 Tear Drop Cells SLIGHT 01/07/20 04:05 Carbonic Acid 1.77 mmol/L (1.05-1.35) H 01/05/20 09:12 HCO3/H2CO3 Ratio 17:1 01/05/20 09:12 ABG pH 7.35 (7.35-7.45) 01/05/20 09:12 ABG pCO2 58.9 mmHg (35-45) H 01/05/20 09:12 ABG pO2 99.6 mmHg (80-100) 01/05/20 09:12 ABG HCO3 31.6 mmol/L (20-24) H 01/05/20 09:12 ABG Total CO2 33.4 mmol/L (21-25) H 01/05/20 09:12 ABG O2 Saturation 97.1 % (94-98) 01/05/20 09:12 ABG Base Excess 4.6 mmol/L 01/05/20 09:12 FiO2 40% 01/05/20 09:12 Sodium 138.6 mmol/L (137-145) 01/07/20 04:05 Potassium 3.8 mmol/L (3.6-5.0) 01/07/20 04:05 Chloride 99 mmol/L (98-107) 01/07/20 04:05 Carbon Dioxide 34 mmol/L (22-30) H 01/07/20 04:05 Anion Gap 6 (5-19) 01/07/20 04:05 BUN 32 mg/dL (7-20) H 01/07/20 04:05 Creatinine 0.72 mg/dL (0.52-1.25) 01/07/20 04:05 Est GFR ( Amer) > 60 (>60) 01/07/20 04:05 Est GFR (MDRD) Non-Af > 60 (>60) 01/07/20 04:05 Glucose 121 mg/dL (75-110) H 01/07/20 04:05 POC Glucose 96 mg/dL (70-110) 01/06/20 17:41 Lactic Acid 1.0 mmol/L (0.7-2.1) 01/04/20 04:40 Calcium 8.1 mg/dL (8.4-10.2) L 01/07/20 04:05 Total Bilirubin 0.9 mg/dL (0.2-1.3) 01/04/20 04:40 Direct Bilirubin 0.6 mg/dL (0.0-0.4) H 01/04/20 04:40 Neonat Total Bilirubin Not Reportable 01/04/20 04:40 Neonat Direct Bilirubin Not Reportable 01/04/20 04:40 Neonat Indirect Bili Not Reportable 01/04/20 04:40 AST 36 U/L (14-36) 01/04/20 04:40 ALT 17 U/L (<35) 01/04/20 04:40 Alkaline Phosphatase 104 U/L (38-126) 01/04/20 04:40 Troponin I 0.016 ng/mL 01/04/20 04:40 Total Protein 6.7 g/dL (6.3-8.2) 01/04/20 04:40 Albumin 3.4 g/dL (3.5-5.0) L 01/04/20 04:40 COVID-19 Source See comment 01/04/20 05:33 COVID-19 (LINDA) Not Detected (Not Detect) 01/04/20 05:33 01/04/20 04:40 Troponin I 0.016 Impressions: Chest X-Ray 01/04/20 05:14 IMPRESSION: Mild interstitial edema with tiny bibasilar effusions copyright 2011 [employer] All Rights Reserved Chest X-Ray 01/06/20 07:30 IMPRESSION: 1. No significant interval changes since the prior study dated 01/04/2020. Plan Time Spent: Greater than 30 Minutes Stroke Is this a Stroke Patient?: No Acute Heart Failure Is this a Heart Failure Patient?: No
--- NOTE | 2020-01-08 13:20 | ADVANCED CARE ---
- Diagnosis (1) Acute on chronic respiratory failure with hypoxia and hypercapnia Diagnosis Current: Yes (2) COPD with acute exacerbation Diagnosis Current: Yes (4) COPD, group D, by GOLD 2017 classification Diagnosis Current: Yes Attendance: Patient Patient's daughter Iman Resuscitation Status: Full Code Discussion: Discussed patient's advanced COPD and frequent hospitalizations requiring intubations. Patient states she has been intubated over 50 times due to her COPD. She has advanced COPD and I discussed CODE STATUS, hospice and palliative care options with her. She prefers to keep her CODE STATUS a full code and declines hospice. She is willing to have an outpatient consultation for their with palliative care. I also discussed this with her daughter. Time Spent: 25
== END 2020-01-08 14:30 | disposition home or self-care (01) | DRG 208 ==
LOC: ER 04:34 → EH 08:10 → ICU 08:26 → EH 08:27 → ICU 09:50 → 5 01-07 11:02
PROVIDERS: ADMIT Anesthesiology; ATTEND Internal Medicine
PROC: 5A1945Z Respiratory Ventilation, 24-96 Consecutive Hours (ICD-10-PCS; principal; 2020-01-06)
PROC: 0BH17EZ Insertion of Endotracheal Airway into Trachea, Via Natural or Artificial Opening (ICD-10-PCS; 2020-01-06)
DX: J96.22 Acute and chronic respiratory failure with hypercapnia (principal); J44.1 Chronic obstructive pulmonary disease with (acute) exacerbation; J44.0 Chronic obstructive pulmonary disease with (acute) lower respiratory infection; J96.21 Acute and chronic respiratory failure with hypoxia; F31.9 Bipolar disorder, unspecified; I10 Essential (primary) hypertension; J20.9 Acute bronchitis, unspecified; R68.0 Hypothermia, not associated with low environmental temperature; B95.1 Streptococcus, group B, as the cause of diseases classified elsewhere; Z99.81 Dependence on supplemental oxygen; E11.9 Type 2 diabetes mellitus without complications; E03.9 Hypothyroidism, unspecified; F17.200 Nicotine dependence, unspecified, uncomplicated; Z79.890 Hormone replacement therapy; Z79.51 Long term (current) use of inhaled steroids; Z20.828 Contact with and (suspected) exposure to other viral communicable diseases; Z79.82 Long term (current) use of aspirin; Z79.899 Other long term (current) drug therapy; Z78.1 Physical restraint status
CPT/HCPCS: 36415; 51702; 71045; 80048; 80053; 82803; 82962; 83605; 84484; 85025; 85027; 87040; 87070; 87077; 87205; 87635; 93005; 93010; 94002; 94003; 94640; 96361; 96365; 96368; 96375; 99291; C9803; J0330; J0571; J0696; J1650; J1956; J2060; J2250; J2704; J2920; J3370; J3490; J7030; J7040; J7512; S0028